=== PATIENT | male | born 1945 | race Two or more races ===

== ENCOUNTER 2020-09-07 11:06 | Outpatient (REF) | payer MEDICARE, SELFPAY ==
--- NOTE | 2020-09-07 11:18 | XR_ITS ---
EXAMINATION: XR KNEE, LEFT CLINICAL INFORMATION: Sprain of the medial collateral ligament of the left knee. COMPARISON: None TECHNIQUE: 2 upright views of the left knee. FINDINGS: No fracture or subluxation. Compartmental joint spaces are maintained. No joint effusion. The soft tissues are unremarkable. IMPRESSION: No acute osseous abnormality. No significant arthritic changes..
== END 2020-09-07 11:07 | disposition home or self-care (01) ==
LOC: HO.XRAY 11:06
PROVIDERS: PCP Internal Medicine
DX: S83.412A Sprain of medial collateral ligament of left knee, initial encounter (principal)
CPT/HCPCS: 73560

== ENCOUNTER 2020-10-03 09:25 | Outpatient (REF) | payer MEDICARE, SELFPAY | END 2020-10-03 09:26 | disposition home or self-care (01) | LOC: HO.LAB 09:25 | PROVIDERS: Visit Provider Internal Medicine | DX: Z20.828 Contact with and (suspected) exposure to other viral communicable diseases (principal) | CPT/HCPCS: C9803; U0003 ==

== ENCOUNTER 2020-10-17 09:29 | Outpatient (REF) | payer MEDICARE, SELFPAY ==
--- NOTE | 2020-10-17 09:32 | XR_ITS ---
EXAMINATION: XR KNEE, LEFT CLINICAL INFORMATION: Left knee pain COMPARISON: Radiographs left knee 09/07/2020 TECHNIQUE: Axial view left patella. FINDINGS: The patella shows no fracture or destructive process in this single view. There is no lateralization or obvious tilting. No joint narrowing or erosive change. There may be some fine chondrocalcinosis at the trochlear notch. XR/XR knee LT 2V IMPRESSION: No lateralization. No joint narrowing or erosive change.
== END 2020-10-17 09:30 | disposition home or self-care (01) ==
LOC: HO.HOSX 09:29
PROVIDERS: PCP Internal Medicine; Visit Provider Physician Assistant
DX: S83.412A Sprain of medial collateral ligament of left knee, initial encounter (principal); W18.30XA Fall on same level, unspecified, initial encounter; Y93.9 Activity, unspecified; Y92.9 Unspecified place or not applicable; Y99.8 Other external cause status; M25.562 Pain in left knee
CPT/HCPCS: 20610; 73560; 99202; J1020

== ENCOUNTER → 2020-10-27 13:27 | Outpatient (BNVA) | payer MEDICARE, SELFPAY | PROVIDERS: PCP Internal Medicine; Referring Provider Internal Medicine; Visit Provider Urology | DX: Z76.89 Persons encountering health services in other specified circumstances (principal) | CPT/HCPCS: 99212 ==

== ENCOUNTER → 2020-11-10 13:20 | Outpatient (BNVA) | payer MEDICARE, MEDICAID, SELFPAY | PROVIDERS: PCP Internal Medicine; Visit Provider Urology | DX: N52.9 Male erectile dysfunction, unspecified (principal) | CPT/HCPCS: 96372; 99212 ==

== ENCOUNTER 2020-11-23 10:44 | Outpatient (REF) | payer MEDICARE, SELFPAY | END 2020-11-23 10:45 | disposition home or self-care (01) | LOC: HO.LAB 10:44 | PROVIDERS: Visit Provider Internal Medicine | DX: Z20.828 Contact with and (suspected) exposure to other viral communicable diseases (principal) | CPT/HCPCS: C9803; U0003 ==

== ENCOUNTER → 2020-12-14 13:39 | Outpatient (BNVA) | payer MEDICARE, SELFPAY | PROVIDERS: PCP Internal Medicine; Visit Provider Urology | DX: E29.1 Testicular hypofunction (principal); N52.01 Erectile dysfunction due to arterial insufficiency | CPT/HCPCS: 96372; 99212 ==

== ENCOUNTER → 2020-12-28 14:35 | Outpatient (BNVA) | payer MEDICARE, SELFPAY | PROVIDERS: Visit Provider Urology | DX: E29.1 Testicular hypofunction (principal); N52.01 Erectile dysfunction due to arterial insufficiency | CPT/HCPCS: 96372; 99212 ==

== ENCOUNTER → 2021-01-04 11:03 | Outpatient (BNVA) | payer MEDICARE, SELFPAY | PROVIDERS: PCP Internal Medicine; Visit Provider Internal Medicine | DX: E66.9 Obesity, unspecified (principal); J44.9 Chronic obstructive pulmonary disease, unspecified; G47.33 Obstructive sleep apnea (adult) (pediatric); Z99.89 Dependence on other enabling machines and devices | CPT/HCPCS: 99212 ==

== ENCOUNTER → 2021-01-11 14:10 | Outpatient (BNVA) | payer MEDICARE, SELFPAY | PROVIDERS: PCP Internal Medicine; Visit Provider Urology | DX: N52.01 Erectile dysfunction due to arterial insufficiency (principal); E29.1 Testicular hypofunction | CPT/HCPCS: 96372; 99212 ==

== ENCOUNTER → 2021-01-24 10:24 | Outpatient (BNVA) | payer MEDICARE, SELFPAY | PROVIDERS: PCP Internal Medicine; Visit Provider Physician Assistant | DX: S83.412D Sprain of medial collateral ligament of left knee, subsequent encounter (principal); S83.249D Other tear of medial meniscus, current injury, unspecified knee, subsequent encounter | CPT/HCPCS: 20610; 99212; J1020 ==

== ENCOUNTER → 2021-02-06 10:47 | Outpatient (BNVA) | payer MEDICARE, MEDICAID, SELFPAY | PROVIDERS: Visit Provider Urology | DX: E29.1 Testicular hypofunction (principal) | CPT/HCPCS: 96372; 99212 ==

== ENCOUNTER → 2021-02-20 11:32 | Outpatient (BNVA) | payer MEDICARE, SELFPAY | PROVIDERS: Visit Provider Urology | DX: E29.1 Testicular hypofunction (principal) | CPT/HCPCS: 96372; Q3014 ==

== ENCOUNTER → 2021-03-20 13:25 | Outpatient (BNVA) | payer MEDICARE, SELFPAY | PROVIDERS: Visit Provider Urology | DX: E29.1 Testicular hypofunction (principal); N52.01 Erectile dysfunction due to arterial insufficiency | CPT/HCPCS: 96372; 99212 ==

== ENCOUNTER 2021-03-30 11:10 | Outpatient (REF) | payer MEDICARE, SELFPAY ==
--- NOTE | ~2021-03-30 | XR_ITS ---
EXAMINATION: XR KNEE, BILATERAL STANDING XR KNEE, LEFT CLINICAL INFORMATION: Pain. COMPARISON: Previous x-rays, most recent August and September 2020 and previous outside knee MRI from 2020. TECHNIQUE: Standing AP view of both knees and lateral and sunrise view of the left knee. FINDINGS: Left Knee: Bone alignment is normal. No fracture or dislocation is seen. There is subchondral cystic change with surrounding sclerosis in the medial femoral condyle that is new from previous exam. The joint spaces are normal. There is a joint effusion. Standing AP view of the right knee is unremarkable. XR/XR knee standing BI IMPRESSION: New subchondral cystic change and surrounding sclerosis in the medial femoral condyle. Differential would include old osteochondral injury and spontaneous osteonecrosis. Joint effusion.
--- NOTE | ~2021-03-30 | XR_ITS ---
EXAMINATION: XR KNEE, BILATERAL STANDING XR KNEE, LEFT CLINICAL INFORMATION: Pain. COMPARISON: Previous x-rays, most recent August and September 2020 and previous outside knee MRI from 2020. TECHNIQUE: Standing AP view of both knees and lateral and sunrise view of the left knee. FINDINGS: Left Knee: Bone alignment is normal. No fracture or dislocation is seen. There is subchondral cystic change with surrounding sclerosis in the medial femoral condyle that is new from previous exam. The joint spaces are normal. There is a joint effusion. Standing AP view of the right knee is unremarkable. XR/XR knee LT 2V IMPRESSION: New subchondral cystic change and surrounding sclerosis in the medial femoral condyle. Differential would include old osteochondral injury and spontaneous osteonecrosis. Joint effusion.
== END 2021-03-30 11:11 | disposition home or self-care (01) ==
LOC: HO.HOSX 11:10
PROVIDERS: Visit Provider Physician Assistant
DX: M17.12 Unilateral primary osteoarthritis, left knee (principal); M25.561 Pain in right knee
CPT/HCPCS: 73560; 73565; 99212

== ENCOUNTER → 2021-04-09 13:03 | Outpatient (BNVA) | payer MEDICARE, SELFPAY | PROVIDERS: Visit Provider Orthopaedic Surgery | DX: Z01.818 Encounter for other preprocedural examination (principal); S83.249A Other tear of medial meniscus, current injury, unspecified knee, initial encounter; M84.452A Pathological fracture, left femur, initial encounter for fracture | CPT/HCPCS: 99212 ==

== ENCOUNTER → 2021-04-17 12:58 | Outpatient (BNVA) | payer MEDICARE, SELFPAY | PROVIDERS: PCP Internal Medicine; Visit Provider Urology | DX: E29.1 Testicular hypofunction (principal) | CPT/HCPCS: 96372 ==

== ENCOUNTER 2021-04-18 08:31 | Day surgery (SDC) | payer MEDICARE, SELFPAY ==
--- NOTE | 2021-04-16 13:37 | P.CONAN_ITS ---
Documented by User: Lin Vargheseney 04/16/21 13:38 HPI - Anesthesia Eval Consult details Narrative: 75yo M for Left Knee Arthroscopy PMFSH Active Problems Active Problems: All Active Problems (Updated 04/02/21 @ 10:14 by Bryan Beavers PA-C) Osteoarthritis of left knee (Acute) COPD (chronic obstructive pulmonary disease) (Acute) ALLY on CPAP (Acute) Obesity (BMI 30-39.9) (Acute) Hypogonadism in male (Acute) Erectile dysfunction due to arterial insufficiency (Acute) Contusion (Acute) Medial meniscus tear (Acute) MCL sprain of left knee (Acute) Past Medical History Medical History Arrhythmia Arthritis Asthma Back pain Carpal tunnel syndrome COPD (chronic obstructive pulmonary disease) COPD (chronic obstructive pulmonary disease) DMII (diabetes mellitus, type 2) GERD (gastroesophageal reflux disease) HTN (hypertension) Lumbar disc herniation Obesity (BMI 30-39.9) ALLY on CPAP RLS (restless legs syndrome) Syncope Family History Family History Father Stroke Surgical History Surgical History History of cervical spinal surgery History of cholecystectomy History of lumbosacral spine surgery Social History Social History Use of substances other than those prescribed or required for medical reasons: No Have you been hit, kicked, punched, or otherwise hurt by someone within the past year? If so, by whom?: No Are you DNR?: No Advance Directives: No Advance Directives Information Provided: Yes Current occupational status: retired Meds Allergies Allergy/AdvReac Type Severity Reaction Status Date / Time hydrochlorothiazide Allergy Unknown unknown Verified 04/09/21 14:05 lisinopril Allergy Unknown unknown Verified 04/09/21 14:05 olmesartan Allergy Unknown unknown Verified 04/09/21 14:05 venom-honey bee Allergy Unknown unknown Verified 04/09/21 14:05 beans Allergy Unknown unknown Uncoded 04/09/21 14:05 Home Medications Medication Instructions Recorded Confirmed Last Taken Type albuterol sulfate 90 mcg/actuation INHALATION 08/26/20 Unknown History aerosol inhaler amlodipine 10 mg tablet 10 mg PO QAM 08/26/20 Unknown History aspirin 81 mg tablet,delayed 81 mg PO QAM 08/26/20 Unknown History release cholecalciferol (vitamin D3) 50 50 mcg PO QAM 08/26/20 Unknown History mcg (2,000 unit) tablet fluticasone propionate 50 INTRANASAL 08/26/20 Unknown History mcg/actuation nasal spray,suspension glipizide 2.5 mg tablet, extended 2.5 mg PO DAILY 08/26/20 Unknown History release 24 hr ipratropium 0.5 mg-albuterol 3 mg ml INHALATION Q6H PRN 08/26/20 Unknown History (2.5 mg base)/3 mL nebulization soln ipratropium 20 mcg-albuterol 100 1 - 2 puff PO Q6H PRN 08/26/20 Unknown History mcg/actuation mist for inhalation ketotifen fumarate 0.025 % (0.035 1 drp OPHTHALMIC (EYE) BID 08/26/20 Unknown History %) eye drops levocetirizine 5 mg tablet 5 mg PO BEDTIME 08/26/20 Unknown History losartan 50 mg tablet 50 mg PO DAILY 08/26/20 Unknown History meloxicam 15 mg tablet 15 mg PO DAILY 08/26/20 Unknown History metformin 1,000 mg tablet 1,000 mg PO BID 08/26/20 Unknown History montelukast 10 mg tablet 10 mg PO DAILY 08/26/20 Unknown History omeprazole 20 mg capsule,delayed 20 mg PO QAM 08/26/20 Unknown History release oxycodone-acetaminophen 5 mg-325 1 tab PO Q12H PRN 08/26/20 Unknown History mg tablet prednisone 5 mg tablet 10 mg PO BID 08/26/20 Unknown History ropinirole 4 mg tablet 4 mg PO BEDTIME 08/26/20 Unknown History sildenafil 100 mg tablet 100 mg PO DAILY PRN 08/26/20 Unknown History simvastatin 10 mg tablet 10 mg PO BEDTIME 08/26/20 Unknown History testosterone cypionate 200 mg/mL 200 mg IM Q2W 08/26/20 Unknown History intramuscular oil acetaminophen 500 mg tablet 500 mg PO Q6H PRN 10/17/20 Unknown History ipratropium 20 mcg-albuterol 100 1 puff INHALATION Q6H 10/17/20 Unknown History mcg/actuation mist for inhalation ipratropium bromide 0.02 % 2.5 ml INHALATION Q6H PRN 10/17/20 Unknown History solution for inhalation salmeterol 21 mcg/actuation mcg INHALATION 10/17/20 Unknown History aerosol inhaler testosterone cypionate 50 mg/mL 50 mg IM Q4W 10/17/20 Unknown History intramuscular oil Exam Exam Date and Time: April 16, 2021 4277 Assessment and Plan Assessment Anesthesia Assessment: Chart Reviewed Documented by User: Kia Weaver 04/18/21 10:04 [facility] Past Medical History Medical History Arrhythmia Arthritis Asthma Back pain Carpal tunnel syndrome COPD (chronic obstructive pulmonary disease) COPD (chronic obstructive pulmonary disease) DMII (diabetes mellitus, type 2) GERD (gastroesophageal reflux disease) HTN (hypertension) Lumbar disc herniation Obesity (BMI 30-39.9) ALLY on CPAP RLS (restless legs syndrome) Syncope Family History Family History Father Stroke Family history of problems with anesthesia: No Surgical History Surgical History History of cervical spinal surgery History of cholecystectomy History of lumbosacral spine surgery History of Problems with Anesthesia: No Social History Social History Use of substances other than those prescribed or required for medical reasons: No Have you been hit, kicked, punched, or otherwise hurt by someone within the past year? If so, by whom?: No Are you DNR?: No Advance Directives: No Advance Directives Information Provided: Yes Current occupational status: retired Meds Allergies Allergy/AdvReac Type Severity Reaction Status Date / Time hydrochlorothiazide Allergy Unknown unknown Verified 04/09/21 14:05 lisinopril Allergy Unknown unknown Verified 04/09/21 14:05 olmesartan Allergy Unknown unknown Verified 04/09/21 14:05 venom-honey bee Allergy Unknown unknown Verified 04/09/21 14:05 beans Allergy Unknown unknown Uncoded 04/09/21 14:05 Home Medications Medication Instructions Recorded Confirmed Last Taken Type albuterol sulfate 90 mcg/actuation INHALATION 08/26/20 Unknown History aerosol inhaler amlodipine 10 mg tablet 10 mg PO QAM 08/26/20 Unknown History aspirin 81 mg tablet,delayed 81 mg PO QAM 08/26/20 Unknown History release cholecalciferol (vitamin D3) 50 50 mcg PO QAM 08/26/20 Unknown History mcg (2,000 unit) tablet fluticasone propionate 50 INTRANASAL 08/26/20 Unknown History mcg/actuation nasal spray,suspension glipizide 2.5 mg tablet, extended 2.5 mg PO DAILY 08/26/20 Unknown History release 24 hr ipratropium 0.5 mg-albuterol 3 mg ml INHALATION Q6H PRN 08/26/20 Unknown History (2.5 mg base)/3 mL nebulization soln ipratropium 20 mcg-albuterol 100 1 - 2 puff PO Q6H PRN 08/26/20 Unknown History mcg/actuation mist for inhalation ketotifen fumarate 0.025 % (0.035 1 drp OPHTHALMIC (EYE) BID 08/26/20 Unknown History %) eye drops levocetirizine 5 mg tablet 5 mg PO BEDTIME 08/26/20 Unknown History losartan 50 mg tablet 50 mg PO DAILY 08/26/20 Unknown History meloxicam 15 mg tablet 15 mg PO DAILY 08/26/20 Unknown History metformin 1,000 mg tablet 1,000 mg PO BID 08/26/20 Unknown History montelukast 10 mg tablet 10 mg PO DAILY 08/26/20 Unknown History omeprazole 20 mg capsule,delayed 20 mg PO QAM 08/26/20 Unknown History release oxycodone-acetaminophen 5 mg-325 1 tab PO Q12H PRN 08/26/20 Unknown History mg tablet prednisone 5 mg tablet 10 mg PO BID 08/26/20 Unknown History ropinirole 4 mg tablet 4 mg PO BEDTIME 08/26/20 Unknown History sildenafil 100 mg tablet 100 mg PO DAILY PRN 08/26/20 Unknown History simvastatin 10 mg tablet 10 mg PO BEDTIME 08/26/20 Unknown History testosterone cypionate 200 mg/mL 200 mg IM Q2W 08/26/20 Unknown History intramuscular oil acetaminophen 500 mg tablet 500 mg PO Q6H PRN 10/17/20 Unknown History ipratropium 20 mcg-albuterol 100 1 puff INHALATION Q6H 10/17/20 Unknown History mcg/actuation mist for inhalation ipratropium bromide 0.02 % 2.5 ml INHALATION Q6H PRN 10/17/20 Unknown History solution for inhalation salmeterol 21 mcg/actuation mcg INHALATION 10/17/20 Unknown History aerosol inhaler testosterone cypionate 50 mg/mL 50 mg IM Q4W 10/17/20 Unknown History intramuscular oil Exam Height,Weight and Vital Signs: Vital Signs Temp Pulse Resp BP Pulse Ox 04/18/21 08:47 97.8 F 63 18 130/69 95 Pertinent Lab Results Pertinent Lab Results: Lab Results 04/18/21 Range/Units 08:43 POC Glucose 116 H (60-115) mg/dL Airway Mallampati Class: II TM Dist: >3cm Neck ROM: Full Heart: RRR Lungs: CTAB Assessment and Plan Assessment Anesthesia Assessment: Anesthesia Plan Discussed and Chart Reviewed Final Anesthetic Review NPO: Yes ASA Class: III Final Preanesthetic Review: No Changes in Pt Med Stat, Meds/Allgs Chart Reviewed, Consent Obtained/Reviewed and Anes Risks/Benef Reviewed Patient Risk: Intermediate Procedure Risk: Low Assessment/Block/Sedation in SS: Assess/Block/Sedation-SS Anesthetic Plan Anesthetic Plan: GA Disposition: Standard PACU
[2021-04-18] VITALS (8 sets, daily range): BP systolic 97–130; BP diastolic 50–69; PULSE 61–71; RESP 12–19; TEMP 36.6; O2SAT 90–99; BMI 32.4
--- NOTE | ~2021-04-18 | FL_ITS ---
EXAMINATION: XR FLUOROSCOPY WITH IMAGES CLINICAL INFORMATION: Internal fixation left knee COMPARISON: Previous x-ray 03/30/2021 TECHNIQUE: Fluoroscopy performed by Dr. Denver Ward. Fluoroscopy time: 0.3 minutes DAP: 0.4 Gycm2 Images: 2 FINDINGS: AP and lateral view of the left knee demonstrates subchondral lucency in the medial femoral condyle. No orthopedic hardware seen. FL/FL guidance in OR IMPRESSION: Intraoperative fluoroscopy guidance for left knee procedure.
[2021-04-18 08:48] LABS: Glucose, Whole Blood 116 mg/dL (60-115)
[2021-04-18] MEDS: Lactated Ringers 1,000 ML 100 ML IVCONT (09:19)
--- NOTE | 2021-04-18 10:17 | MHC.SHP ---
Pre-Procedural Eval Section A The patient is an INPATIENT: No Changes since office visit: Yes Patient answered all questions; No Cold of Flu in the past 2 weeks, No New Medical Problems and No Changes in Medication The History & Physical has been completed within 30 days and I have reviewed it.: Yes Section B Chief Complaint: condyle of left femur Allergies: Allergies Allergy/AdvReac Type Severity Reaction Status Date / Time hydrochlorothiazide Allergy Unknown unknown Verified 04/09/21 14:05 lisinopril Allergy Unknown unknown Verified 04/09/21 14:05 olmesartan Allergy Unknown unknown Verified 04/09/21 14:05 venom-honey bee Allergy Unknown unknown Verified 04/09/21 14:05 beans Allergy Unknown unknown Uncoded 04/09/21 14:05 Plan I have reviewed the history and physical and performed a pertinent physical examination on my patient. No changes have occurred unless specified.
--- NOTE | 2021-04-18 11:38 | PM.OP ---
Brief Operative Note Date of Service: 04/18/21 Pre-op diagnosis: insufficiency fracture right medial femoral condyle medial meniscus tear Post-op diagnosis: same Procedure: internal fixation right medial femoral condyle insufficiency fracture Implants: 4ml Angela Acufill calcium phosphate Surgeon: Denver Ward MD Anesthesia: GETA Was an [employer] Out[employer] Manager used for this Procedure?: Yes Food And Beverage Outlets Manager: Shasha Jane Estimated blood loss (mL): 5 Tourniquet time (min): 25 IV fluids (mL): 500 Pathology: none sent Condition: stable Disposition: PACU
--- NOTE | 2021-04-18 11:51 | P.OP_ITS ---
Operative Note Operative Note Date of Service: 04/18/21 Narrative: Pre-op diagnosis: insufficiency fracture right medial femoral condyle medial meniscus tear Post-op diagnosis: same Procedure: internal fixation right medial femoral condyle insufficiency fracture Implants: 4ml Angela Acufill calcium phosphate Surgeon: Denver Ward MD Anesthesia: GETA Was an [employer] Consultant used for this Procedure?: Yes [employer] Consultant: Shasha Jane Estimated blood loss (mL): 5 Tourniquet time (min): 25 IV fluids (mL): 500 Pathology: none sent Condition: stable Procedure in detail: Patient was brought to the operating room and placed supine on the surgical table. He was prepped and draped in standard sterile fashion and a time out was called to indentify proper site, proper procedure and IV antibiotics per weight were administered. I began by insufflating the tourniquet to 300 mm Hg. I then made a standard anterolateral stab incision with 15 blade placed my blunt trocar atraumatically into the patellofemoral joint. I then insufflated the joint placed my 30 degree arthroscope. Suprapatellar pouch was clean. He had some grade 1 changes of the patella and trochlea. I descended into the medial compartment where I made my medial portal under direct visualization. Again the risk grade 1 and 2 changes of the tibial plateau. ACL was intact lateral compartment was pristine. I examined the posteromedial meniscus and found a posteromedial meniscus tear which it was radial involving the meniscal body. This was debrided down to stable edges using a combination of biter and shaver. Once the meniscus was stabilized I examined the medial femoral condyle. There was no obvious cartilage damage over the weight-bearing surface. I then removed my arthroscope and began the internal fixation procedure. Under radiographic visualization I established to start site over the anteromedial plateau just medial to the articular cartilage. The delivery cannula was placed just proximal to the femoral condyle lesion and inserted posteriorly under direct visualization. Once I was satisfied with the position of the guidewire relative to the lesion as appreciated on MRI I mixed the Accufill calcium phosphate on the back table and slowly injected a total of 4 mL. After each mL I gradually retracted the cannula and under direct visualization was able to see the extravasation of the calcium phosphate cement in the area of interest on both AP and lateral radiographs. Once I was satisfied with the location and extent of fill and felt some resistance with injection I placed the guidewire back into the cannula and started a timer. I then used the arthroscope to visualize the insertion site and. There was a small amount of extravasated calcium phosphate around the cannula. This was removed with a shaver. Once 10 minutes time was up I removed the cannula and examined the knee again for any loose pieces of sodium phosphate. There were none. I then removed all instrumentation. Portals were closed with nylon. 30 mL of 0.25% Marcaine was injected in the portals and into the knee. I then the patient was then placed in sterile dressing extubated brought to recovery room in stable condition there were no known complications.
== END 2021-04-18 13:20 ==
LOC: HO.SSS 08:31
PROVIDERS: PCP Internal Medicine; Visit Provider Orthopaedic Surgery
PROC: (CPT 29870; principal; 2021-04-18 10:40)
DX: S72.435A Nondisplaced fracture of medial condyle of left femur, initial encounter for closed fracture (principal); M23.231 Derangement of other medial meniscus due to old tear or injury, right knee; X58.XXXA Exposure to other specified factors, initial encounter; Y93.9 Activity, unspecified; Y92.9 Unspecified place or not applicable; Y99.8 Other external cause status; J44.9 Chronic obstructive pulmonary disease, unspecified; G47.33 Obstructive sleep apnea (adult) (pediatric); G25.81 Restless legs syndrome; I10 Essential (primary) hypertension; E11.9 Type 2 diabetes mellitus without complications; Z79.51 Long term (current) use of inhaled steroids; Z99.89 Dependence on other enabling machines and devices; Z79.899 Other long term (current) drug therapy; Z88.8 Allergy status to other drugs, medicaments and biological substances
CPT/HCPCS: 27599; 82947; C1713; J0171; J0690; J2250; J2405; J3010

== ENCOUNTER 2021-04-30 11:33 | Outpatient (REF) | payer MEDICARE, SELFPAY ==
[2021-04-30 13:37] LABS: MANUAL DIFF FLAG NO
[2021-04-30 13:45] LABS: Basophils Absolute Auto 0.1 X10*3/uL (0.0-0.2); Basophils Percent Auto 1.1 % (0-2); Eosinophils Absolute Auto 0.2 X10*3/uL (0.0-0.4); Eosinophils Percent Auto 3.2 % (0-4); Hematocrit 41.9 % (42-52); Hemoglobin 13.4 g/dl (14.0-18.0); Imm Gran Abs Auto 0.02 X10*3/uL (0.00-0.03); Imm Gran Pct Auto 0.3 % (0.0-0.4); Lymphocytes Absolute Auto 1.8 X10*3/uL (1.2-4.9); Lymphocytes Percent Auto 28.2 % (20-40); Mean Corpuscular Hemoglobin 30.5 pg (27.0-33.0); Mean Corpuscular Volume 95.2 fL (80-98); Monocytes Absolute Auto 0.6 X10*3/uL (0.1-1.2); Monocytes Percent Auto 9.3 % (2-11); Neutrophils Absolute Auto 3.6 X10*3/uL (2.0-8.3); Neutrophils Percent Auto 57.9 % (45-73); Platelet Count 323 X10*3/uL (160-400); White Blood Count 6.3 X10*3/uL (4.8-10.8)
[2021-04-30 14:18] LABS: PSA,Total (Free>4and<10) 4.13 ng/mL (0.00-4.00)
[2021-05-01 10:16] LABS: Free Prostate Spec Ag 0.4 ng/mL; Percent Free Prostate Spec Ag 11 % (calc) (>25); Prostate Specific Ag Total 3.8 ng/mL (< OR = 4.0)
[2021-05-06 12:11] LABS: Testosterone, Free 41.9 pg/mL (30.0-135.0); Testosterone, Total 327 ng/dL (250-1100)
== END 2021-04-30 11:34 | disposition home or self-care (01) ==
LOC: HO.10HDL 11:33
PROVIDERS: Urology; PCP Internal Medicine; Visit Provider Physician Assistant
DX: Z12.5 Encounter for screening for malignant neoplasm of prostate (principal); M84.453A Pathological fracture, unspecified femur, initial encounter for fracture; E29.1 Testicular hypofunction; Z98.890 Other specified postprocedural states
CPT/HCPCS: 36415; 84153; 84154; 84402; 84403; 85025; 99212

== ENCOUNTER → 2021-05-15 15:41 | Outpatient (BNVA) | payer MEDICARE, SELFPAY | PROVIDERS: PCP Internal Medicine; Visit Provider Urology | DX: E29.1 Testicular hypofunction (principal) | CPT/HCPCS: 96372; 99212 ==

== ENCOUNTER → 2021-05-31 13:24 | Outpatient (BNVA) | payer MEDICARE, SELFPAY | PROVIDERS: PCP Internal Medicine; Visit Provider Urology | DX: E29.1 Testicular hypofunction (principal) | CPT/HCPCS: 96372 ==

== ENCOUNTER → 2021-06-07 14:32 | Outpatient (BNVA) | payer MEDICARE, SELFPAY | PROVIDERS: PCP Internal Medicine; Visit Provider Orthopaedic Surgery | DX: M84.453D Pathological fracture, unspecified femur, subsequent encounter for fracture with routine healing (principal); M17.12 Unilateral primary osteoarthritis, left knee; Z98.890 Other specified postprocedural states | CPT/HCPCS: 99212 ==

== ENCOUNTER → 2021-06-14 09:59 | Outpatient (BNVA) | payer MEDICARE, SELFPAY | PROVIDERS: PCP Internal Medicine; Visit Provider Urology | DX: E29.1 Testicular hypofunction (principal) | CPT/HCPCS: 96372 ==

== ENCOUNTER 2021-06-19 15:00 | Outpatient (RCR) | payer MEDICARE, SELFPAY ==
[2021-05-03 11:01] VITALS: BP 140/70
--- NOTE | 2021-05-03 12:33 | MHC.PT.EP ---
[facility] [place] Office [place] Office [place] Office [address] Madeleine Miles [address] [phone] F: [phone] F: [phone] F: [phone] F: [phone] Physical Therapy Plan of Care Date of Evaluation: Date of Surgery: 04/18/21 Diagnosis: Pathological fracture, unspecified femur, initial encounter for fracture s/p subchondroplasty Assessment: Jose Ramon is a 75 year old male who was referred to physical therapy s/p L knee unspecified fracture and subchondroplasty. He is 2 weeks post op. He presents with 7/10 pain around knee, decreased B hip strength, decreased L knee strength, decreased L knee ROM, increased L knee swelling, posture abnormalities, and gait deviations. He would benefit from skilled PT for the aformentioned impairments to improve his ability for ADLs such as walking, driving, cooking, and dressing him self. Frequency and Duration: The patient will be seen 2x week for 6 weeks Short Term Goals: 1. In 2 weeks patient will present with decreased swelling to decrease pain with walking and stairs. 2. In 3 weeks: Patient will demonstrate improved L Knee flexion to help with dressing himself and driving his car. Mcfp Goals: 1. In 5 weeks patient will present with improved knee ROM to improve ability to walk long distances 2. In 6 weeks patient will improve hip MMT by one grade to improve ability to walk long distances, cook, and clean. Treatment Plan: Modalities to reduce pain, spasms and effusion. Manual therapy to restore motion and function. Therapeutic exercise to improve strength and flexibility. Neuromuscular re-education for posture and balance. Therapeutic activities to return to functional activities of daily living. Electronically signed by: Tabitha Horton PT DPT Please sign and return to therapist. Thank you for your referral.
--- NOTE | 2021-06-22 14:32 | MHC.PT.DC ---
[facility] [place] Office [place] Office [place] Office [address] Madeleine Miles [address] [phone] F: [phone] F: [phone] F: [phone] F: [phone] Physical Therapy Discharge Report Diagnosis: Pathological fracture, unspecified femur, initial encounter for fracture s/p subchondroplasty Date of Surgery: 04/18/21 Date of Evaluation: 05/03/21 Date of Discharge: 06/22/21 Treatments to Date: 9 Cancellations to Date: 0 No Shows to Date: 0 Discharge Status: Achieved Goals Improved Function Independent with HEP Discharge Summary: Jose Ramon has achieved all goals set for him and is independent with HEPs. He has therefore been d/c from therapy. Electronically signed by: Tabitha Horton PT DPT Please sign and return to therapist. Thank you for your referral.
== END 2021-06-22 14:33 | disposition home or self-care (01) ==
LOC: HO.PT 15:00
PROVIDERS: Visit Provider Physician Assistant
DX: M84.453A Pathological fracture, unspecified femur, initial encounter for fracture (principal); Z98.890 Other specified postprocedural states
CPT/HCPCS: 97110; 97112; 97161; 97530

== ENCOUNTER → 2021-07-03 12:52 | Outpatient (BNVA) | payer MEDICARE, SELFPAY | PROVIDERS: PCP Internal Medicine; Visit Provider Urology | DX: E29.1 Testicular hypofunction (principal) | CPT/HCPCS: 96372 ==

== ENCOUNTER → 2021-07-05 14:38 | Outpatient (BNVA) | payer MEDICARE, SELFPAY | PROVIDERS: PCP Internal Medicine; Visit Provider Internal Medicine | DX: J44.9 Chronic obstructive pulmonary disease, unspecified (principal); G47.33 Obstructive sleep apnea (adult) (pediatric); G25.81 Restless legs syndrome; E66.9 Obesity, unspecified; Z99.89 Dependence on other enabling machines and devices | CPT/HCPCS: 99212 ==

== ENCOUNTER → 2021-07-18 13:02 | Outpatient (BNVA) | payer MEDICARE, SELFPAY | PROVIDERS: PCP Internal Medicine; Visit Provider Urology | DX: E29.1 Testicular hypofunction (principal) | CPT/HCPCS: 96372 ==

== ENCOUNTER → 2021-07-19 13:29 | Outpatient (BNVA) | payer MEDICARE, SELFPAY | PROVIDERS: PCP Internal Medicine; Visit Provider Orthopaedic Surgery | DX: M17.12 Unilateral primary osteoarthritis, left knee (principal); E66.01 Morbid (severe) obesity due to excess calories; G47.33 Obstructive sleep apnea (adult) (pediatric); Z68.30 Body mass index [BMI] 30.0-30.9, adult; Z98.890 Other specified postprocedural states; Z88.8 Allergy status to other drugs, medicaments and biological substances; Z91.030 Bee allergy status; Z99.89 Dependence on other enabling machines and devices | CPT/HCPCS: 20610; 99212; J1100 ==

== ENCOUNTER → 2021-08-01 12:45 | Outpatient (BNVA) | payer MEDICARE, SELFPAY | PROVIDERS: PCP Internal Medicine; Visit Provider Urology | DX: E29.1 Testicular hypofunction (principal) | CPT/HCPCS: 96372 ==

== ENCOUNTER → 2021-08-15 13:04 | Outpatient (BNVA) | payer MEDICARE, SELFPAY | PROVIDERS: PCP Internal Medicine; Visit Provider Urology | DX: E29.1 Testicular hypofunction (principal) | CPT/HCPCS: 96372 ==

== ENCOUNTER 2021-08-23 12:16 | Outpatient (REF) | payer MEDICARE, SELFPAY | END 2021-08-23 12:17 | disposition home or self-care (01) | LOC: HO.HOSX 12:16 | PROVIDERS: Visit Provider Orthopaedic Surgery | DX: Z13.89 Encounter for screening for other disorder (principal) ==

== ENCOUNTER → 2021-08-29 13:01 | Outpatient (BNVA) | payer MEDICARE, SELFPAY | PROVIDERS: PCP Internal Medicine; Visit Provider Urology | DX: E29.1 Testicular hypofunction (principal) | CPT/HCPCS: 96372 ==

== ENCOUNTER → 2021-09-12 13:08 | Outpatient (BNVA) | payer MEDICARE, SELFPAY | PROVIDERS: PCP Internal Medicine; Visit Provider Urology | DX: E29.1 Testicular hypofunction (principal) | CPT/HCPCS: 96372 ==

== ENCOUNTER → 2021-09-26 13:15 | Outpatient (BNVA) | payer MEDICARE, SELFPAY | PROVIDERS: PCP Internal Medicine; Visit Provider Urology | DX: E29.1 Testicular hypofunction (principal) | CPT/HCPCS: 96372 ==

== ENCOUNTER → 2021-10-10 14:22 | Outpatient (BNVA) | payer MEDICARE, SELFPAY | PROVIDERS: PCP Internal Medicine; Visit Provider Urology | DX: E29.1 Testicular hypofunction (principal) | CPT/HCPCS: 96372 ==

== ENCOUNTER → 2021-10-15 08:30 | Outpatient (BNVA) | payer MEDICARE, SELFPAY | PROVIDERS: PCP Internal Medicine; Visit Provider Orthopaedic Surgery | DX: M84.453D Pathological fracture, unspecified femur, subsequent encounter for fracture with routine healing (principal); S83.249D Other tear of medial meniscus, current injury, unspecified knee, subsequent encounter; M17.12 Unilateral primary osteoarthritis, left knee; Z98.890 Other specified postprocedural states | CPT/HCPCS: 20610; 99212; J1100 ==

== ENCOUNTER 2021-10-23 12:31 | Outpatient (REF) | payer MEDICARE, SELFPAY | END 2021-10-23 12:32 | disposition home or self-care (01) | LOC: HO.LAB 12:31 | PROVIDERS: PCP Internal Medicine; Visit Provider Internal Medicine | DX: Z20.822 Contact with and (suspected) exposure to COVID-19 (principal) | CPT/HCPCS: C9803; U0003; U0005 ==

== ENCOUNTER → 2021-10-24 12:57 | Outpatient (BNVA) | payer MEDICARE, SELFPAY | PROVIDERS: PCP Internal Medicine; Visit Provider Urology | DX: E29.1 Testicular hypofunction (principal) | CPT/HCPCS: 96372 ==

== ENCOUNTER 2021-11-01 13:57 | Outpatient (REF) | payer MEDICARE, SELFPAY | END 2021-11-01 13:58 | disposition home or self-care (01) | LOC: HO.LAB 13:57 | PROVIDERS: Visit Provider Internal Medicine | DX: Z20.822 Contact with and (suspected) exposure to COVID-19 (principal) | CPT/HCPCS: C9803; U0003; U0005 ==

== ENCOUNTER 2021-11-07 11:50 | Outpatient (REF) | payer MEDICARE, MEDICAID, SELFPAY ==
[2021-11-07 13:54] LABS: Hematocrit 47.6 % (42.0-52.0); Hemoglobin 15.5 g/dl (14.0-18.0); Mean Corpuscular HGB Conc 32.6 g/dl (31.0-36.0); Mean Corpuscular Volume 92.1 fL (80.0-98.0); Mean Platelet Volume 10.3 fL (9.4-12.4); Platelet Count 244 X10*3/uL (160-400); Red Blood Count 5.17 X10*6/uL (4.60-5.80); Red Cell Distribution Width 13.1 % (11.0-16.0); White Blood Count 5.7 X10*3/uL (4.8-10.8)
[2021-11-07 15:29] LABS: Prostate Specific Antigen 4.93 ng/mL (<0.05-4.0)
[2021-11-14 16:16] LABS: Testosterone, Total 408 ng/dL (250-1100)
== END 2021-11-07 11:51 | disposition home or self-care (01) ==
LOC: HO.10HDL 11:50
PROVIDERS: Visit Provider Urology
DX: Z12.5 Encounter for screening for malignant neoplasm of prostate (principal); E29.1 Testicular hypofunction; Z79.899 Other long term (current) drug therapy
CPT/HCPCS: 36415; 84153; 84403; 85027; 96372

== ENCOUNTER → 2021-11-14 12:42 | Outpatient (BNVA) | payer MEDICARE, SELFPAY | PROVIDERS: PCP Internal Medicine; Visit Provider Urology | DX: E29.1 Testicular hypofunction (principal) | CPT/HCPCS: Q3014 ==

== ENCOUNTER → 2021-11-22 11:12 | Outpatient (BNVA) | payer MEDICARE, SELFPAY | PROVIDERS: PCP Internal Medicine; Visit Provider Urology | DX: E29.1 Testicular hypofunction (principal) | CPT/HCPCS: 96372 ==

== ENCOUNTER → 2021-12-06 12:57 | Outpatient (BNVA) | payer MEDICARE, SELFPAY | PROVIDERS: PCP Internal Medicine; Visit Provider Urology | DX: E29.1 Testicular hypofunction (principal) | CPT/HCPCS: 96372 ==

== ENCOUNTER → 2021-12-20 12:50 | Outpatient (BNVA) | payer MEDICARE, SELFPAY | PROVIDERS: PCP Internal Medicine; Visit Provider Urology | DX: E29.1 Testicular hypofunction (principal) | CPT/HCPCS: 96372 ==

== ENCOUNTER → 2022-01-03 09:48 | Outpatient (BNVA) | payer MEDICARE, SELFPAY | PROVIDERS: PCP Internal Medicine; Visit Provider Urology | DX: E29.1 Testicular hypofunction (principal) | CPT/HCPCS: 96372 ==

== ENCOUNTER → 2022-01-09 14:03 | Outpatient (BNVA) | payer MEDICARE, SELFPAY | PROVIDERS: PCP Internal Medicine; Visit Provider Internal Medicine | DX: J44.9 Chronic obstructive pulmonary disease, unspecified (principal); G47.33 Obstructive sleep apnea (adult) (pediatric); G25.81 Restless legs syndrome; E66.9 Obesity, unspecified; Z99.89 Dependence on other enabling machines and devices; Z68.31 Body mass index [BMI] 31.0-31.9, adult | CPT/HCPCS: 99212 ==

== ENCOUNTER → 2022-01-21 11:23 | Outpatient (BNVA) | payer MEDICARE, SELFPAY | PROVIDERS: PCP Internal Medicine; Visit Provider Orthopaedic Surgery | DX: M17.12 Unilateral primary osteoarthritis, left knee (principal); E11.9 Type 2 diabetes mellitus without complications; E29.1 Testicular hypofunction | CPT/HCPCS: 20610; 96372; 99212; J1100 ==

== ENCOUNTER → 2022-01-29 10:47 | Outpatient (BNVA) | payer MEDICARE, SELFPAY | PROVIDERS: PCP Internal Medicine; Visit Provider Urology | DX: E29.1 Testicular hypofunction (principal) | CPT/HCPCS: 96372 ==

== ENCOUNTER → 2022-02-12 12:58 | Outpatient (BNVA) | payer MEDICARE, SELFPAY | PROVIDERS: PCP Internal Medicine; Visit Provider Urology | DX: E29.1 Testicular hypofunction (principal) | CPT/HCPCS: 96372 ==

== ENCOUNTER → 2022-02-26 13:11 | Outpatient (BNVA) | payer MEDICARE, SELFPAY | PROVIDERS: PCP Internal Medicine; Visit Provider Urology | DX: E29.1 Testicular hypofunction (principal) | CPT/HCPCS: 96372 ==

== ENCOUNTER → 2022-03-15 15:07 | Outpatient (BNVA) | payer MEDICARE, SELFPAY | PROVIDERS: PCP Internal Medicine; Visit Provider Urology | DX: E29.1 Testicular hypofunction (principal) | CPT/HCPCS: 96372 ==

== ENCOUNTER 2022-03-21 08:55 | Outpatient (REF) | payer MEDICARE, MEDICAID, SELFPAY ==
--- NOTE | ~2022-03-21 | XR_ITS ---
EXAMINATION: XR SHOULDER, RIGHT CLINICAL INFORMATION: Shoulder pain. COMPARISON: None TECHNIQUE: 3 views of the right shoulder. FINDINGS: There is loss of the right AC joint space. The glenohumeral joint space is maintained normal. No visible acute fracture, dislocation or subluxation is seen. The soft tissues are normal. XR/XR shoulder RT min 2V IMPRESSION: Mild degenerative changes of the right AC joint. No visible acute fracture or dislocation.
== END 2022-03-21 08:56 | disposition home or self-care (01) ==
LOC: HO.HOSX 08:55
PROVIDERS: Visit Provider Physician Assistant
DX: M77.8 Other enthesopathies, not elsewhere classified (principal); M25.511 Pain in right shoulder; E11.9 Type 2 diabetes mellitus without complications; J44.9 Chronic obstructive pulmonary disease, unspecified; I10 Essential (primary) hypertension; E66.9 Obesity, unspecified; Z87.891 Personal history of nicotine dependence; Z88.8 Allergy status to other drugs, medicaments and biological substances; Z91.030 Bee allergy status
CPT/HCPCS: 20610; 73030; 99212; J1020

== ENCOUNTER → 2022-04-02 13:56 | Outpatient (BNVA) | payer MEDICARE, SELFPAY | PROVIDERS: PCP Internal Medicine; Visit Provider Urology | DX: E29.1 Testicular hypofunction (principal) | CPT/HCPCS: 96372 ==

== ENCOUNTER → 2022-04-16 13:04 | Outpatient (BNVA) | payer MEDICARE, SELFPAY | PROVIDERS: PCP Internal Medicine; Visit Provider Urology | DX: E29.1 Testicular hypofunction (principal) | CPT/HCPCS: 96372 ==

== ENCOUNTER → 2022-05-01 12:55 | Outpatient (BNVA) | payer MEDICARE, SELFPAY | PROVIDERS: PCP Internal Medicine; Visit Provider Urology | DX: E29.1 Testicular hypofunction (principal) | CPT/HCPCS: 96372 ==

== ENCOUNTER 2022-05-03 12:23 | Outpatient (REF) | payer OTHER, SELFPAY ==
[2022-05-03 13:22] LABS: Hematocrit 46.4 % (42.0-52.0); Hemoglobin 15.5 g/dl (14.0-18.0); Mean Corpuscular HGB Conc 33.4 g/dl (31.0-36.0); Mean Corpuscular Hemoglobin 30.9 pg (27.0-33.0); Mean Corpuscular Volume 92.4 fL (80.0-98.0); Mean Platelet Volume 10.5 fL (9.4-12.4); Platelet Count 230 X10*3/uL (160-400); Red Blood Count 5.02 X10*6/uL (4.60-5.80); Red Cell Distribution Width 13.2 % (11.0-16.0)
[2022-05-03 14:01] LABS: PSA,Total (Free>4and<10) 4.99 ng/mL (0.00-4.00)
[2022-05-06 20:17] LABS: Free Prostate Spec Ag 0.6 ng/mL; Percent Free Prostate Spec Ag 12 % (calc) (>25); Prostate Specific Ag Total 4.9 ng/mL (< OR = 4.0)
[2022-05-09 13:46] LABS: Testosterone, Total 1499 ng/dL (250-1100)
== END 2022-05-03 12:24 | disposition home or self-care (01) ==
LOC: HO.LAB 12:23
PROVIDERS: PCP Internal Medicine; Visit Provider Urology
DX: N40.1 Benign prostatic hyperplasia with lower urinary tract symptoms (principal); E29.1 Testicular hypofunction; N13.8 Other obstructive and reflux uropathy; Z12.5 Encounter for screening for malignant neoplasm of prostate
CPT/HCPCS: 36415; 84153; 84154; 84403; 85027

== ENCOUNTER → 2022-05-15 12:47 | Outpatient (BNVA) | payer OTHER, SELFPAY | PROVIDERS: PCP Internal Medicine; Visit Provider Urology | DX: E29.1 Testicular hypofunction (principal); N52.01 Erectile dysfunction due to arterial insufficiency | CPT/HCPCS: 96372; 99212 ==

== ENCOUNTER 2022-05-22 11:26 | Outpatient (REF) | payer OTHER, SELFPAY ==
[2022-05-22 13:41] LABS: Hematocrit 45.9 % (42.0-52.0)
[2022-05-27 11:17] LABS: Testosterone, Total 819 ng/dL (250-1100)
== END 2022-05-22 11:27 | disposition home or self-care (01) ==
LOC: HO.10HDL 11:26
PROVIDERS: Visit Provider Urology
DX: Z12.5 Encounter for screening for malignant neoplasm of prostate (principal); E29.1 Testicular hypofunction
CPT/HCPCS: 36415; 84153; 84403; 85014

== ENCOUNTER 2022-05-23 11:47 | Outpatient (REF) | payer OTHER, SELFPAY ==
--- NOTE | ~2022-05-23 | XR_ITS ---
EXAMINATION: XR RIBS, LEFT CLINICAL INFORMATION: Chest and left RIBS. COMPARISON: None TECHNIQUE: 3 views of the left ribs were obtained. Chest one view. FINDINGS: Chest: The lungs are well-expanded and clear acute process. The heart size and pulmonary vascularity is normal. No gross bony abnormality seen. Multiple views left ribs reveal no visible fracture or dislocation. Especially there is no fracture involving the lateral ribs where a lead marker has been placed. XR/XR ribs LT min 3V w CXR1V IMPRESSION: Unremarkable chest exam and left rib exam.
== END 2022-05-23 11:48 | disposition home or self-care (01) ==
LOC: HO.XRAY 11:47
PROVIDERS: Absent Provider Internal Medicine; PCP Internal Medicine; Visit Provider Emergency Medicine
DX: R07.81 Pleurodynia (principal)
CPT/HCPCS: 71101

== ENCOUNTER → 2022-05-29 14:15 | Outpatient (BNVA) | payer OTHER, SELFPAY | PROVIDERS: PCP Internal Medicine; Visit Provider Urology | DX: E29.1 Testicular hypofunction (principal) | CPT/HCPCS: 96372 ==

== ENCOUNTER → 2022-06-13 13:32 | Outpatient (BNVA) | payer OTHER, SELFPAY | PROVIDERS: PCP Internal Medicine; Visit Provider Urology | DX: E29.1 Testicular hypofunction (principal) | CPT/HCPCS: 96372 ==

== ENCOUNTER → 2022-06-27 13:20 | Outpatient (BNVA) | payer OTHER, SELFPAY | PROVIDERS: PCP Internal Medicine; Visit Provider Urology | DX: E29.1 Testicular hypofunction (principal) | CPT/HCPCS: 96372 ==

== ENCOUNTER → 2022-07-11 13:08 | Outpatient (BNVA) | payer OTHER, SELFPAY | PROVIDERS: PCP Internal Medicine; Visit Provider Urology | DX: E29.1 Testicular hypofunction (principal) | CPT/HCPCS: 96372 ==

== ENCOUNTER → 2022-07-25 13:24 | Outpatient (BNVA) | payer OTHER, SELFPAY | PROVIDERS: PCP Internal Medicine; Visit Provider Urology | DX: E29.1 Testicular hypofunction (principal) | CPT/HCPCS: 96372 ==

== ENCOUNTER → 2022-08-08 14:11 | Outpatient (BNVA) | payer OTHER, SELFPAY | PROVIDERS: PCP Internal Medicine; Visit Provider Internal Medicine | DX: J44.9 Chronic obstructive pulmonary disease, unspecified (principal); G47.33 Obstructive sleep apnea (adult) (pediatric); E66.9 Obesity, unspecified; G25.81 Restless legs syndrome; Z79.899 Other long term (current) drug therapy; Z99.89 Dependence on other enabling machines and devices | CPT/HCPCS: 99212 ==

== ENCOUNTER → 2022-08-09 09:57 | Outpatient (BNVA) | payer OTHER, SELFPAY | PROVIDERS: PCP Internal Medicine; Visit Provider Urology | DX: E29.1 Testicular hypofunction (principal) | CPT/HCPCS: 96372 ==

== ENCOUNTER → 2022-08-23 10:53 | Outpatient (BNVA) | payer OTHER, SELFPAY | PROVIDERS: PCP Internal Medicine; Visit Provider Urology | DX: E29.1 Testicular hypofunction (principal); M77.8 Other enthesopathies, not elsewhere classified; M25.511 Pain in right shoulder | CPT/HCPCS: 20610; 96372; 99212; J1020 ==

== ENCOUNTER → 2022-09-06 10:44 | Outpatient (BNVA) | payer OTHER, SELFPAY | PROVIDERS: PCP Internal Medicine; Visit Provider Urology | DX: E29.1 Testicular hypofunction (principal) | CPT/HCPCS: 96372 ==

== ENCOUNTER 2022-09-11 13:44 | Outpatient (REF) | payer OTHER, SELFPAY ==
--- NOTE | ~2022-09-11 | XR_ITS ---
EXAMINATION: XR SHOULDER, LEFT CLINICAL INFORMATION: Left shoulder pain COMPARISON: None TECHNIQUE: AP external rotation, Grashey, scapular Y, and axillary views of the left shoulder. FINDINGS: There is mild acromioclavicular osteoarthritis. Glenohumeral joint is well preserved. No fracture. Alignment is anatomic. Soft tissues are normal with no abnormal calcifications. XR/XR shoulder LT min 2V IMPRESSION: Mild osteoarthritis of the acromioclavicular joint.
== END 2022-09-11 13:45 | disposition home or self-care (01) ==
LOC: HO.HOSX 13:44
PROVIDERS: Visit Provider Physician Assistant
DX: M75.82 Other shoulder lesions, left shoulder (principal); M19.012 Primary osteoarthritis, left shoulder; Z79.899 Other long term (current) drug therapy
CPT/HCPCS: 20610; 73030; 99212; J1020

== ENCOUNTER → 2022-10-02 13:36 | Outpatient (BNVA) | payer OTHER, SELFPAY | PROVIDERS: PCP Internal Medicine; Visit Provider Orthopaedic Surgery | DX: G56.03 Carpal tunnel syndrome, bilateral upper limbs (principal) | CPT/HCPCS: 99202 ==

== ENCOUNTER → 2022-10-04 13:47 | Outpatient (BNVA) | payer OTHER, SELFPAY | PROVIDERS: PCP Internal Medicine; Visit Provider Urology | DX: E29.1 Testicular hypofunction (principal) | CPT/HCPCS: 96372 ==

== ENCOUNTER → 2022-10-21 11:03 | Outpatient (BNVA) | payer OTHER, SELFPAY | PROVIDERS: PCP Internal Medicine; Visit Provider Urology | DX: E29.1 Testicular hypofunction (principal) | CPT/HCPCS: 96372 ==

== ENCOUNTER 2022-11-01 11:20 | Outpatient (REF) | payer OTHER, SELFPAY ==
[2022-11-01 14:20] LABS: Prostate Specific Antigen 4.56 ng/mL (<0.05-4.0)
[2022-11-09 13:34] LABS: Testosterone, Total 508 ng/dL (250-1100)
== END 2022-11-01 11:21 | disposition home or self-care (01) ==
LOC: HO.10HDL 11:20
PROVIDERS: Visit Provider Urology
DX: E29.1 Testicular hypofunction (principal); Z12.5 Encounter for screening for malignant neoplasm of prostate
CPT/HCPCS: 36415; 84153; 84403

== ENCOUNTER → 2022-11-19 14:09 | Outpatient (BNVA) | payer OTHER, SELFPAY | PROVIDERS: PCP Internal Medicine; Visit Provider Urology | DX: E29.1 Testicular hypofunction (principal); N52.01 Erectile dysfunction due to arterial insufficiency; Z79.899 Other long term (current) drug therapy | CPT/HCPCS: 99212 ==

== ENCOUNTER → 2022-11-20 13:06 | Outpatient (BNVA) | payer OTHER, SELFPAY | PROVIDERS: PCP Internal Medicine; Visit Provider Urology | DX: E29.1 Testicular hypofunction (principal) | CPT/HCPCS: 96372 ==

== ENCOUNTER → 2022-12-04 13:01 | Outpatient (BNVA) | payer OTHER, SELFPAY | PROVIDERS: PCP Internal Medicine; Visit Provider Urology | DX: E29.1 Testicular hypofunction (principal) | CPT/HCPCS: 96372 ==

== ENCOUNTER 2022-12-12 11:53 | Day surgery (SDC) | payer OTHER, SELFPAY ==
[2022-12-12 12:03] VITALS: BMI 30.7
[2022-12-12 12:22] LABS: Glucose, Whole Blood 158 mg/dL (60-115)
--- NOTE | 2022-12-12 13:56 | MHC.SHP ---
Pre-Procedural Eval Section A Date of Service: 12/12/22 The patient is an INPATIENT: No Changes since office visit: No Cold of Flu in the past 2 weeks, No New Medical Problems, No Changes in Medication and No Patient answered all questions The History & Physical has been completed within 30 days and I have reviewed it.: Yes Section B Chief Complaint: Carpal tunnel syndrome, right upper limb Allergies: Allergies Allergy/AdvReac Type Severity Reaction Status Date / Time hydrochlorothiazide Allergy Unknown unknown Verified 11/19/22 14:31 lisinopril Allergy Unknown unknown Verified 11/19/22 14:31 olmesartan Allergy Unknown unknown Verified 11/19/22 14:31 venom-honey bee Allergy Unknown unknown Verified 11/19/22 14:31 Plan I have reviewed the history and physical and performed a pertinent physical examination on my patient. No changes have occurred unless specified. Time Spent With Patient Time: Total time managing care of this patient today ____ minutes.
--- NOTE | 2022-12-12 13:56 | W.PM.OPN ---
Operative Note Operative Note Date of Service: 12/12/22 Narrative: Preop diagnosis: 1. Right Carpal tunnel syndrome Postop diagnosis: same Procedure: 1. right Carpal tunnel release Surgeon: Barb Bajwa MD Anesthesia: local block using 1% lidocaine with epinephrine Findings: Thickened transverse carpal ligament. EBL: Less than 5 mL Specimens: None Complications: None Disposition: Brought to recovery room in stable condition Plan: Follow-up for 10-14 days for wound check and suture removal Indications: The patient is 77 years old, with right carpal tunnel syndrome that has been unresponsive to nonoperative management. The risks and benefits of operative treatment including but not limited to risk of damage to blood vessels, nerves, tendons, infection, persistent pain, persistent symptoms, or possible need for additional surgery were discussed with the patient and the patient wishes to proceed with surgery. Procedure: Once consent was obtained a local block was performed using a combination of 1% lidocaine with epinephrine. The patient was then brought back to the operating suite and placed on the operative table in supine position. The for right upper extremity was prepped and draped in a standard surgical fashion. Once assured that we had a good block, a 2.0 cm longitudinal incision was made centered over the carpal tunnel. The incision was made through the skin to the subcutaneous tissues using a #15 blade. Dissection was made down to the level of the transverse carpal ligament with care being taken to protect the palmar cutaneous nerve. Once the transverse carpal ligament was clearly visualized, a longitudinal incision was made in the transverse carpal ligament 1st using a #15 blade, then using tenotomy scissors under direct visualization. Care was taken to look for and protect the motor branch of the median nerve when seen in this area. Once satisfied with our carpal tunnel release the wound was copiously irrigated with normal saline and hemostasis was obtained with a brief period of local pressure. The skin edges were reapproximated with some 5.0 nylon suture material and a sterile dressing was applied. The patient appears to have tolerated the procedure well and with no complications. All digits were well vascularized at the conclusion of the case.
[2022-12-12 14:00] VITALS: BP 141/71; PULSE 96; RESP 16; TEMP 36.6; O2SAT 96
== END 2022-12-12 14:31 | disposition home or self-care (01) ==
PROVIDERS: PCP Internal Medicine; Visit Provider Orthopaedic Surgery
PROC: (CPT 64721; principal; 2022-12-12 12:50)
DX: G56.01 Carpal tunnel syndrome, right upper limb (principal); R20.0 Anesthesia of skin; R20.2 Paresthesia of skin; J44.9 Chronic obstructive pulmonary disease, unspecified; G47.33 Obstructive sleep apnea (adult) (pediatric); I49.9 Cardiac arrhythmia, unspecified; I10 Essential (primary) hypertension; E11.9 Type 2 diabetes mellitus without complications; E66.9 Obesity, unspecified; Z68.30 Body mass index [BMI] 30.0-30.9, adult; Z88.8 Allergy status to other drugs, medicaments and biological substances; Z87.891 Personal history of nicotine dependence
CPT/HCPCS: 64721; 82947; J0171

== ENCOUNTER → 2022-12-16 14:01 | Outpatient (BNVA) | payer OTHER, SELFPAY | PROVIDERS: Visit Provider Physician Assistant | DX: M19.012 Primary osteoarthritis, left shoulder (principal) | CPT/HCPCS: 20610; 99212; J1020 ==

== ENCOUNTER → 2022-12-23 13:06 | Outpatient (BNVA) | payer OTHER, SELFPAY | PROVIDERS: PCP Internal Medicine; Visit Provider Urology | DX: E29.1 Testicular hypofunction (principal) | CPT/HCPCS: 96372 ==

== ENCOUNTER → 2022-12-25 14:33 | Outpatient (BNVA) | payer OTHER, SELFPAY | PROVIDERS: PCP Internal Medicine; Visit Provider Orthopaedic Surgery | DX: Z13.89 Encounter for screening for other disorder (principal) ==

== ENCOUNTER → 2023-01-08 14:49 | Outpatient (BNVA) | payer OTHER, SELFPAY | PROVIDERS: PCP Internal Medicine; Visit Provider Urology | DX: E29.1 Testicular hypofunction (principal) | CPT/HCPCS: 96372 ==

== ENCOUNTER → 2023-01-22 13:57 | Outpatient (BNVA) | payer OTHER, SELFPAY | PROVIDERS: PCP Internal Medicine; Visit Provider Urology | DX: E29.1 Testicular hypofunction (principal) | CPT/HCPCS: 96372 ==

== ENCOUNTER → 2023-02-07 13:11 | Outpatient (BNVA) | payer OTHER, SELFPAY | PROVIDERS: PCP Internal Medicine; Visit Provider Urology | DX: E29.1 Testicular hypofunction (principal) | CPT/HCPCS: 96372 ==

== ENCOUNTER → 2023-02-18 14:03 | Outpatient (BNVA) | payer OTHER, SELFPAY | PROVIDERS: PCP Internal Medicine; Visit Provider Internal Medicine | DX: Z48.811 Encounter for surgical aftercare following surgery on the nervous system (principal); G56.02 Carpal tunnel syndrome, left upper limb; G47.33 Obstructive sleep apnea (adult) (pediatric); J44.9 Chronic obstructive pulmonary disease, unspecified; E66.9 Obesity, unspecified; G25.81 Restless legs syndrome; Z99.89 Dependence on other enabling machines and devices; Z68.31 Body mass index [BMI] 31.0-31.9, adult | CPT/HCPCS: 99212 ==

== ENCOUNTER → 2023-02-21 13:33 | Outpatient (BNVA) | payer OTHER, SELFPAY | PROVIDERS: PCP Internal Medicine; Visit Provider Urology | DX: E29.1 Testicular hypofunction (principal) | CPT/HCPCS: 96372 ==

== ENCOUNTER → 2023-03-11 10:42 | Outpatient (BNVA) | payer OTHER, SELFPAY | PROVIDERS: PCP Internal Medicine; Visit Provider Urology | DX: E29.1 Testicular hypofunction (principal) | CPT/HCPCS: 96372 ==

== ENCOUNTER → 2023-03-26 12:59 | Outpatient (BNVA) | payer OTHER, MEDICAID, SELFPAY | PROVIDERS: PCP Internal Medicine; Visit Provider Physician Assistant | DX: M19.012 Primary osteoarthritis, left shoulder (principal); M75.82 Other shoulder lesions, left shoulder | CPT/HCPCS: 20610; 99212; J1020 ==

== ENCOUNTER 2023-03-28 13:00 | Outpatient (RCR) | payer OTHER, SELFPAY ==
--- NOTE | 2023-03-05 13:57 | MHC.OT.EP ---
[address] [phone] Occupational Therapy Plan of Care Patient Name: Jose Ramon Feliciano Date of Evaluation: 03/05/23 Diagnosis: S/P R CTR Pain Location: R VOLAR HAND 3-4/10 AT REST, 7-8/10 AT NIGHT Pain Score: 3-8/10 Pain Scale Used: Numeric (0 - 10) Aggravating Factors: LIFTING, SLEEPING, WRIST EXTENSION, VARIOUS TEXTURES AT SURGICAL SITE Alleviating Factors: TAKING PAIN MEDICATION: PERCOCET, MOTRIN. OCCASIONALLY USING HEAT AND ICE. Assessment: MR FELICIANO IS 11.5 WEEKS POST OP FROM R CTR WITH DR PADILLA. HE STATES LOW TO MODERATE PAIN. HE IS ABLE TO DO MOST ADLs AND LIGHT IADLs. HE REPORTS SOME HYPERSENSITIVITY AT THE VOLAR WRIST AND DIFFICULTIES LIFTING HEAVIER ITEMS. A 23% LIMITATION IS REPORTED PER THE QUICK DASH ASSESSMENT. ONGOING SKILLED OT IS WARRANTED TO ACHIEVE MAXIMUM FUNCTIONAL LEVEL AND IMPROVE QOL. Frequency and Duration: The patient will be seen 2X/WEEK FOR 3 WEEKS Short Term Goals: IND HEP IND SCAR MOBILIZATION AND DESENSITIZATION STRATEGIES MOSTLY PAINFREE AT REST AND LIGHT ADLs Group Home Goals: INCREASE R GROSS GRASP >60 POUNDS REPORT <3/10 PAIN WITH LIFTING >10 POUNDS FLOOR TO WAIST FOR SIMULATED IADLs QUICK DASH <15% Treatment Plan: Therapeutic Exercise Therapeutic Activity Home Exercise Program Splinting Neuro Re-ed Patient Education Desensitization/Sensory Re-ed Edema Control ADL Training Ultrasound NMES Iontophoresis Paraffin Fluidotherapy MHP Cold Packs Joint Mobilization Soft Tissue Mobilization Kinesiotaping Other (see comments) Electronically Signed By: BRIGITTE TORRES OTR/L Please Sign and return to therapist. Thank you once again for your referral.
--- NOTE | 2023-03-28 13:33 | MHC.OT.DC ---
[address] [phone] F: [phone] Occupational Therapy Discharge Note Patient Name: Jose Ramon Feliciano Provider: Barb Bajwa Diagnosis: S/P R CTR Date of Surgery: 12/12/22 Date of Evaluation: 03/05/23 Date of Discharge: 03/28/23 Treatments to Date: 5 Cancellations to Date: No Shows to Date: Discharge Status: Achieved Goals Improved Function Independent with HEP Discharge Summary: HAS MET ALL GOALS FOR RIGHT HAND ROM, WRIST AND CLINICAL MICROBIOLOGIST STRENGTH, HAND FUNCTION AND IMPROVING SENSATION. OCCASIONAL MILD PARESTHESIA. QUICK DASH SCORE OF 11 PTS, Pt DID NOT INCLUDE LEFT SHOULDER OA JT PAIN OR LEFT CTS. Pt IS SCHEDULED FOR CTR ON 05/05/23. Pt HAD LEFT SHOULDER INJECTED YESTERDAY Electronically Signed By: ANGEL SALVADOR OT ,CHT CLT Reviewed/agree with student documentation: N/A Therapist: Please Sign and return to therapist, thank you for your referral.
== END 2023-03-28 13:50 | disposition home or self-care (01) ==
LOC: HO.OT 13:00
PROVIDERS: PCP Internal Medicine; Visit Provider Orthopaedic Surgery
DX: G56.03 Carpal tunnel syndrome, bilateral upper limbs (principal)
CPT/HCPCS: 97035; 97110; 97140; 97165

== ENCOUNTER → 2023-03-28 14:36 | Outpatient (BNVA) | payer OTHER, MEDICAID, SELFPAY | PROVIDERS: PCP Internal Medicine; Visit Provider Urology | DX: E29.1 Testicular hypofunction (principal) | CPT/HCPCS: 96372 ==

== ENCOUNTER → 2023-04-11 13:00 | Outpatient (BNVA) | payer OTHER, MEDICAID, SELFPAY | PROVIDERS: PCP Internal Medicine; Visit Provider Urology | DX: E29.1 Testicular hypofunction (principal) | CPT/HCPCS: 96372 ==

== ENCOUNTER 2023-05-06 10:05 | Outpatient (REF) | payer OTHER, MEDICAID, SELFPAY ==
[2023-05-06 11:10] LABS: Hematocrit 44.7 % (42.0-52.0); Hemoglobin 14.8 g/dl (14.0-18.0); Mean Corpuscular HGB Conc 33.1 g/dl (31.0-36.0); Mean Corpuscular Hemoglobin 30.4 pg (27.0-33.0); Mean Corpuscular Volume 91.8 fL (80.0-98.0); Mean Platelet Volume 10.1 fL (9.4-12.4); Platelet Count 239 X10*3/uL (160-400); Red Blood Count 4.87 X10*6/uL (4.60-5.80); White Blood Count 7.3 X10*3/uL (4.8-10.8)
[2023-05-06 12:26] LABS: Prostate Specific Antigen 3.95 ng/mL (<0.05-4.0)
[2023-05-12 10:39] LABS: Testosterone, Total 104 ng/dL (250-1100)
== END 2023-05-06 10:06 | disposition home or self-care (01) ==
LOC: HO.10HDL 10:05
PROVIDERS: Visit Provider Urology
DX: Z12.5 Encounter for screening for malignant neoplasm of prostate (principal); E29.1 Testicular hypofunction
CPT/HCPCS: 36415; 84153; 84403; 85027; 96372

== ENCOUNTER 2023-05-13 13:53 | Outpatient (REF) | payer OTHER, MEDICAID, SELFPAY | END 2023-05-13 13:54 | disposition home or self-care (01) | LOC: HO.HOSX 13:53 | PROVIDERS: PCP Internal Medicine; Visit Provider Orthopaedic Surgery | DX: S63.617A Unspecified sprain of left little finger, initial encounter (principal) | CPT/HCPCS: 73130; 99212 ==

== ENCOUNTER → 2023-05-21 13:14 | Outpatient (BNVA) | payer OTHER, MEDICAID, SELFPAY | PROVIDERS: PCP Internal Medicine; Visit Provider Urology | DX: E29.1 Testicular hypofunction (principal) | CPT/HCPCS: 96372 ==

== ENCOUNTER 2023-06-04 14:12 | Outpatient (AMB) | payer OTHER, SELFPAY ==
--- NOTE | 2023-06-04 15:03 | A.OFFVIS_ITS ---
Intake Intake Visit Reasons: 6m follow up/Labs(SET) Intake Note: * Patient presents today for a 6mo follow-up with Labs results * Meds- Sildenafil & Tadalafil & Testosterone Cypio * Allergies to Antibiotic- None * Blood Thinner- None Pulp Drier Firer Required: No Accompanied by: Self / Same As Patient Allergies hydrochlorothiazide Allergy (Unknown, Verified 06/04/23 15:03) unknown lisinopril Allergy (Unknown, Verified 06/04/23 15:03) unknown olmesartan Allergy (Unknown, Verified 06/04/23 15:03) unknown venom-honey bee Allergy (Unknown, Verified 06/04/23 15:03) unknown HPI HPI Comments History of Present Illness Details Jose Ramon is a pleasant Bahraini-speaking male. He is here for the following urologic condition - hypogonadism - erectile dysfunction Bahraini translation provided by qualified medical dosimetrist Here for follow-up T is low but timing on lab work was off Continue shot every 2 weeks Lab work should be done 1 week after shot Did discuss use of tadalafil. Continue with 10 mg daily Hypogonadism 1 ml 200 mg per cc testosterone every 2 weeks Given without issue Last measured testosterone 400 04/30/21, PSA 4.1 - 11/13 PSA 4.9 T pending, 05/15 1499 46, 11/14 PSA 4.6 T 508 lab day friday, 05/16 104 P 3.9 Erectile dysfunction. Declining response to Viagra demand Switched to daily tadalafil [facility] Medical History Arrhythmia Arthritis Asthma Back pain Carpal tunnel syndrome COPD (chronic obstructive pulmonary disease) COPD (chronic obstructive pulmonary disease) DMII (diabetes mellitus, type 2) GERD (gastroesophageal reflux disease) HTN (hypertension) Lumbar disc herniation Obesity (BMI 30-39.9) ALLY on CPAP RLS (restless legs syndrome) RLS (restless legs syndrome) Syncope Surgical History History of cervical spinal surgery History of cholecystectomy History of lumbosacral spine surgery Family History Father Stroke Social History Household Members: Spouse Housing: Apartment Alcohol intake: never Patient Tobacco Use Status: Former Tobacco user Current occupational status: retired Current occupation: rt handed Review of Systems Const Denies chills and Denies fever(s) Card Reports no additional complaints and Denies syncope Resp Denies cough GI Denies abdominal pain and Denies heartburn Reports as per HPI and Denies change in libido Neuro Denies syncope Psych Denies change in libido Endo Denies change in libido Physical Exam Const General: cooperative, healthy appearing, comfortable and no acute distress Orientation/consciousness: patient oriented x3 HEENT Face and sinus: Yes normal facial exam Mouth: moist mucous membranes Neck Neck: Yes normal visual inspection, Yes full ROM and Yes trachea midline Chest Chest palpation & inspection: normal inspection of the chest Resp Effort & Inspection: normal respiratory effort, able to speak in complete sentences and no respiratory distress GI Inspection: Yes normal to inspection Back/Spine/Pelvis Cervical Spine: normal cervical lordosis Thoracic/Lumbar Spine: thoracic and lumbar spine normal to inspection Skin General skin exam: no rashes or lesions noted Neuro General: patient oriented x3, gait normal, tone normal and moves all extremities Extrem General: Yes normal to inspection and Yes capillary refill normal Results AMB Urinalysis, Automated UA Leukoctes 0 Carlos/uL Last Edit by KHADRA Barbour on 06/04/23 16:10 UA Nitrite Negative Last Edit by KHADRA Barbour on 06/04/23 16:10 UA Urobilinogen 0.2 mg/dL Last Edit by KHADRA Barbour on 06/04/23 16:1 0 UA Protein 0 mg/dL Last Edit by KHADRA Barbour on 06/04/23 16:10 UA pH 6.0 Last Edit by KHADRA Barbour on 06/04/23 16:10 UA Blood 0 Zack/uL Last Edit by KHADRA Barbour on 06/04/23 16:10 UA Specific Shonto 1.025 Last Edit by KHADRA Barbour on 06/04/23 16: 10 UA Ketone Negative Last Edit by KHADRA Barbour on 06/04/23 16:10 UA Bilirubin 1 mg/dL Last Edit by KHADRA Barbour on 06/04/23 16:10 1+ Lynn Jang 06/04/23 16:10 UA Glucose 0 mg/dL Last Edit by KHADRA Barbour on 06/04/23 16:10 Results Reviewed Results Reviewed: Laboratory Last Values Urine pH (Auto) 6.0 06/04/23 15:04 Specific Shonto (Auto) 1.025 06/04/23 15:04 Urine Protein (Auto) 0 mg/dL 06/04/23 15:04 Glucose (UA)(Auto) 0 mg/dL 06/04/23 15:04 Urine Ketones (Auto) Negative 06/04/23 15:04 Urine Blood (Auto) 0 Zack/uL 06/04/23 15:04 Urine Nitrite (Auto) Negative 06/04/23 15:04 Urine Bilirubin (Auto) 1 mg/dL 06/04/23 15:04 Urine Urobilinogen (Auto) 0.2 mg/dL 06/04/23 15:04 Leukocyte Esterase (Auto) 0 Carlos/uL 06/04/23 15:04 Assessment & Plan Assessment & Plan (1) Erectile dysfunction due to arterial insufficiency: Code(s): N52.01 - Erectile dysfunction due to arterial insufficiency (2) Hypogonadism in male: Code(s): E29.1 - Testicular hypofunction Plan 6 month follow-up Orders: Orders Prostate Specific Antigen 6 Months E29.1 - Testicular hypofunction Testosterone, Total 6 Months E29.1 - Testicular hypofunction Complete Blood Count no Diff 6 Months E29.1 - Testicular hypofunction AMB Post Void Residual by ultrasound 06/04/23 N39.8 - Other specified disorders of urinary system AMB Urinalysis Automated 06/04/23 Z13.9 - Encounter for screening, unspecified Medications: Refilled tadalafil 10 mg PO DAILY 90 days 90 tabs 1RF sexual activity E29.1 - Testicular hypofunction Patient Instructions: Imaging studies, laboratory and physical exam results were discussed and re viewed in detail. No major barriers to patient understanding were identified. An opportunity to ask questions regarding the treatment plan was provided. All questions were answered. The patient expressed understanding and agreement with the above treatment plan. The patient is aware they should contact our office by phone for worsening of their current condition or the appearance of new urologic symptoms. Compliance is encouraged with any medications and followup testing that is ordered. It is a privilege to participate in the urologic care of your patient. If you have any questions or concerns regarding treatment for the above conditions, or other urologic issues, please do not hesitate to contact me. The office telephone contact is [phone]. This note is constructed using voice recognition software. While every effort has been made to ensure accuracy installer apprentice errors may have been included. Yours sincerely, Dr Sean Landis MD, [facility] - Urology Providers of Expert, Compassionate Care for the Genitourinary System Coding Level of Care Code Est Pt Level 3 (72944) Diagnoses Erectile dysfunction due to arterial insufficiency N52.01 Hypogonadism in male E29.1
== END 2023-06-04 15:56 | disposition home or self-care (01) ==
PROVIDERS: Visit Provider Urology
DX: N52.01 Erectile dysfunction due to arterial insufficiency (principal); E29.1 Testicular hypofunction
CPT/HCPCS: 99213

== ENCOUNTER → 2023-06-04 14:12 | Outpatient (BNVA) | payer OTHER, SELFPAY | PROVIDERS: Visit Provider Urology | DX: N52.01 Erectile dysfunction due to arterial insufficiency (principal); E29.1 Testicular hypofunction | CPT/HCPCS: 99212 ==

== ENCOUNTER 2023-06-25 14:22 | Outpatient (AMB) | payer OTHER, SELFPAY ==
--- NOTE | 2023-06-25 14:28 | AM.OFFVISNUR ---
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
== END 2023-06-25 14:49 | disposition home or self-care (01) ==
PROVIDERS: PCP Internal Medicine; Visit Provider Urology
DX: E29.1 Testicular hypofunction (principal)

== ENCOUNTER → 2023-06-25 14:22 | Outpatient (BNVA) | payer OTHER, SELFPAY | PROVIDERS: PCP Internal Medicine; Visit Provider Urology | DX: E29.1 Testicular hypofunction (principal) | CPT/HCPCS: 96372 ==

== ENCOUNTER 2023-07-31 13:35 | Outpatient (AMB) | payer OTHER, SELFPAY ==
--- NOTE | 2023-07-31 13:38 | AM.OFFVISNUR ---
Intake Intake Visit Reasons: 2 week testo injection Allergies hydrochlorothiazide Allergy (Unknown, Verified 06/04/23 15:03) unknown lisinopril Allergy (Unknown, Verified 06/04/23 15:03) unknown olmesartan Allergy (Unknown, Verified 06/04/23 15:03) unknown venom-honey bee Allergy (Unknown, Verified 06/04/23 15:03) unknown Office Meds testosterone cypionate 200 mg/mL intramuscular kit Performing Provider: Sean Landis MD [place] [facility] [place] [facility] Administered by: Suzette Adams RN on 07/31/23 13:38 Dose Route Admin Location Dispensed Lot Number Expiration Date [facility] Piper Installer 160 mg IM right deltoid 1 ea [id number] 10/24/25 1353-4566-66 Coding Assessment & Plan Assessment & Plan Orders: Orders AMB Testosterone Injection Patient Supplied Today E29.1 - Testicular hypofunction
== END 2023-07-31 13:49 | disposition home or self-care (01) ==
LOC: HO.HUSH 13:35
PROVIDERS: PCP Internal Medicine; Visit Provider Urology
DX: E29.1 Testicular hypofunction (principal)

== ENCOUNTER → 2023-07-31 13:35 | Outpatient (BNVA) | payer OTHER, SELFPAY | PROVIDERS: PCP Internal Medicine; Visit Provider Urology | DX: E29.1 Testicular hypofunction (principal) | CPT/HCPCS: 96372 ==

== ENCOUNTER 2023-08-13 13:58 | Outpatient (AMB) | payer OTHER, SELFPAY ==
--- NOTE | 2023-08-13 14:09 | AM.OFFVISNUR ---
Intake Intake Visit Reasons: 2w testo injection Allergies hydrochlorothiazide Allergy (Unknown, Verified 06/04/23 15:03) unknown lisinopril Allergy (Unknown, Verified 06/04/23 15:03) unknown olmesartan Allergy (Unknown, Verified 06/04/23 15:03) unknown venom-honey bee Allergy (Unknown, Verified 06/04/23 15:03) unknown Office Meds testosterone cypionate 200 mg/mL intramuscular kit Performing Provider: Sean Landis MD [place] [facility] [place] [facility] Administered by: Suzette Adams RN on 08/13/23 14:09 Dose Route Admin Location Dispensed Lot Number Expiration Date [facility] Pediatric Dental Hygienist 160 mg IM left deltoid 1 ea [id number] 10/24/25 9420-4569-88 Coding Assessment & Plan Assessment & Plan Orders: Orders AMB Testosterone Injection Patient Supplied Today E29.1 - Testicular hypofunction
== END 2023-08-13 14:19 | disposition home or self-care (01) ==
PROVIDERS: PCP Internal Medicine; Visit Provider Urology
DX: E29.1 Testicular hypofunction (principal)

== ENCOUNTER → 2023-08-13 13:58 | Outpatient (BNVA) | payer OTHER, SELFPAY | PROVIDERS: PCP Internal Medicine; Visit Provider Urology | DX: E29.1 Testicular hypofunction (principal) | CPT/HCPCS: 96372 ==

== ENCOUNTER 2023-08-18 13:43 | Outpatient (AMB) | payer OTHER, SELFPAY ==
[2023-08-18 14:17] VITALS: BP 130/70; PULSE 61; O2SAT 96; BMI 30.9
--- NOTE | 2023-08-18 14:17 | MHC.OFFVIS ---
Intake Vital Signs 08/18/23 14:17 Height 5 ft 4 in Weight 180 lb BMI 30.9 BP 130/70 Blood Pressure Location Lt brachial Position Sitting Pulse 61 Pulse Source Pulse Oximeter Pulse Oximetry (%) 96 Oxygen Delivery Method Room Air Intake Visit Reasons: COPD Intake Note: pt is here for follow up and is liking his new nasal mask. He states he is the same. Passenger Service Agent Required: No Allergies hydrochlorothiazide Allergy (Unknown, Verified 08/18/23 14:44) unknown lisinopril Allergy (Unknown, Verified 08/18/23 14:44) unknown olmesartan Allergy (Unknown, Verified 08/18/23 14:44) unknown venom-honey bee Allergy (Unknown, Verified 08/18/23 14:44) unknown Medication List - Last Reconciled 08/18/23 by Celestina Denney MD albuterol sulfate 90 mcg/actuation (Ventolin HFA) 2 puffs PO Q4-6H PRN amlodipine 10 mg PO QAM celecoxib (Celebrex) 200 mg PO BID PRN 30 days chlorthalidone 12.5 mg PO QAM cholecalciferol (vitamin D3) 50 mcg PO QAM diclofenac sodium 1% 2 grams topical QID Flovent HFA 220 mcg/actuation (fluticasone propionate) 2 puffs PO BID NS glipizide ER 2.5 mg PO DAILY hydrocodone-acetaminophen 5-325 mg 1 tab PO Q4-6H PRN ipratropium-albuterol 0.5 mg-3 mg(2.5 mg base)/3 mL mL inhalation Q6H PRN ketotifen fumarate 0.025%(0.035%) 1 drp ophthalmic (eye) BID leg brace (Knee Support Brace) knee support genumed [id number] leg brace (Knee Support Brace) Please reprint genumed rx leg brace (Knee Support Brace) knee support genumed [id number] levocetirizine 5 mg PO BEDTIME losartan 50 mg PO DAILY losartan 100 mg PO QAM metformin 1,000 mg PO BID montelukast 10 mg PO DAILY omeprazole 20 mg PO QAM ropinirole 4 mg PO BEDTIME sildenafil 100 mg PO DAILY PRN 30 days simvastatin 10 mg PO BEDTIME tadalafil 10 mg PO DAILY 90 days testosterone cypionate 160 mg (0.8 mL) IM Q2W 4 weeks Do you need a note to return to daycare/school/sports/work: No HPI COPD HPI Details 78 years old gentleman is here for follow-up after 6 months. Breathing has remained stable. He does need to use the nebulizer once or twice a day in addition to Flovent-220 2 puffs b.i.d. Has had no acute exacerbation. As for as CPAP is concerned he does use it every night, but lately his use per night has been less than 4 hours. He was having some issues with the fullface mask. Now he has gotten nasal air , which is more comfortable. He plans to use it regularly for more than 5 hours per night. [facility] Medical History RLS (restless legs syndrome) COPD (chronic obstructive pulmonary disease) ALLY on CPAP Obesity (BMI 30-39.9) RLS (restless legs syndrome) GERD (gastroesophageal reflux disease) COPD (chronic obstructive pulmonary disease) Carpal tunnel syndrome Lumbar disc herniation Back pain Syncope Arthritis Arrhythmia Asthma DMII (diabetes mellitus, type 2) HTN (hypertension) Surgical History History of cervical spinal surgery History of lumbosacral spine surgery History of cholecystectomy Family History Father Stroke Social History Household Members: Spouse Housing: Apartment Alcohol intake: never Patient Tobacco Use Status: Former Tobacco user Current occupational status: retired Current occupation: rt handed Review of Systems Const All systems reviewed & are unremarkable except as noted in HPI and below Eyes Reports no additional complaints ENT Reports nasal congestion (Chronic intermittent, with minimal postnasal discharge.) Card Denies chest pain, Denies irregular heart rhythm and Denies leg edema Resp Reports as per HPI GI Reports no additional complaints Reports erectile dysfunction Musc Reports back pain and Reports arthralgias (knees ) Skin/Breast Reports system reviewed and no additional complaints, except as documented Neuro Reports no additional complaints Psych Reports no additional complaints Physical Exam Vital Signs: Last Vital Signs Pulse 61 08/18/23 14:17 BP 130/70 08/18/23 14:17 Pulse Ox 96 08/18/23 14:17 Oxygen Delivery Method Room Air 08/18/23 14:17 BMI result Body Mass Index 30.9 Const General: healthy appearing (Except for being overweight,, Weight down by 6 LBs .), comfortable, no acute distress, alert and awake Orientation/consciousness: patient oriented x3 HEENT Head: Yes normal to inspection General nose exam: No nasal polyps present and No nasal discharge present Face and sinus: Yes sinuses nontender Mouth: oropharynx normal Throat: Yes posterior oropharynx normal Eyes General: appearance normal, both eyes and all related structures Neck Neck: Yes normal visual inspection, Yes no lymphadenopathy, Yes trachea midline and Yes no JVD Thyroid: Thyroid normal Chest Chest palpation & inspection: normal inspection of the chest, normal palpation of entire chest wall and no tenderness Resp Other: Percussion note is resonant. He has good breath sounds on both sides, slightly distant with prolonged expiratory phase. HAS SCATTERED FEW WHEEZES OVER THE LOWER LOBE AREAS. Cardio Palpation: normal PMI Rate: regular rate Rhythm: regular rhythm Heart sounds: no gallops and no murmurs GI Palpation (GI): Soft to palpation, nontender, No hepatosplenomegaly present and no masses Auscultation: normal bowel sounds Back/Spine/Pelvis Thoracic/Lumbar Spine: thoracic and lumbar spine normal to inspection and thoraco-lumbar ROM limited Skin General skin exam: no rashes or lesions noted Neuro General: patient oriented x3 and no focal motor deficits Cranial nerves: Yes CN's II-XII intact bilaterally Extrem General: Yes normal to inspection, Yes no clubbing, cyanosis or edema and Yes no calf tenderness Psych Appearance: grossly normal and well kempt Speech and movement: Normal speech and movement present Results Reviewed Results Reviewed: Compliance report for the last 30 nights is reviewed. Used 28/30 nights., 93% Average use per night 3 hours 55 minutes. Residual AHI 4.4 Assessment & Plan Assessment & Plan (1) COPD (chronic obstructive pulmonary disease): Comment: COPD HAS BEEN QUITE STABLE. CONT. THE SAME MEDS : FLOVENT-220 2 PUFFS BID , DUONEB UDs TID , May use ALBUTEROL HFA 2 PUFFS Q 6 HRS ONLY PRN . Code(s): J44.9 - Chronic obstructive pulmonary disease, unspecified (2) ALLY on CPAP: Comment: OBSTRUCTIVE SLEEP APNEA IS BEING MANAGED VERY WELL WITH THE CPAP. HE IS VERY COMPLIANT AND BENEFITTING. COMPLIANCE REPORT IS REVIEWED AND THE USAGE HAS BEEN LESS THAN OPTIMAL. HE IS EXPLAINED ABOUT HIS SUBOPTIMAL USE. NOW RECOMMENDED THAT HE SHOULD USE CPAP EVERY NIGHT FOR AT LEAST 5 HOURS. NEW INTERFACE ( NASAL AIR ) HAS BEEN PROVIDED AND HE PROMISES THAT HE IS GOING TO USE MORE THAN 5 HOURS EVERY NIGHT. Code(s): G47.33 - Obstructive sleep apnea (adult) (pediatric); Z99.89 - Dependence on other enabling machines and devices (3) Obesity (BMI 30-39.9): Comment: HE IS MODERATELY OBESE, HE IS WELL AWARE OF THIS AND TRIES TO WATCH HIS DIET. HE IS ADVISED TO CONTINUE LOSING 1 OR 2 LB EVERY MONTH. Code(s): E66.9 - Obesity, unspecified (4) RLS (restless legs syndrome): Comment: CHRONIC, PROBLEM IN ADDITION TO OBSTRUCTIVE SLEEP APNEA. CONTROLLED WITH THE USE OF ROPINIROLE 4 MG AT BEDTIME Code(s): G25.81 - Restless legs syndrome Coding Level of Care Code Est Pt Level 4 (03567) Diagnoses COPD (chronic obstructive pulmonary disease) J44.9 ALLY on CPAP G47.33; Z99.89 Obesity (BMI 30-39.9) E66.9 RLS (restless legs syndrome) G25.81
== END 2023-08-18 14:45 | disposition home or self-care (01) ==
PROVIDERS: PCP Internal Medicine; Visit Provider Internal Medicine
DX: J44.9 Chronic obstructive pulmonary disease, unspecified (principal); G47.33 Obstructive sleep apnea (adult) (pediatric); Z99.89 Dependence on other enabling machines and devices; E66.9 Obesity, unspecified; G25.81 Restless legs syndrome
CPT/HCPCS: 99214

== ENCOUNTER → 2023-08-18 13:43 | Outpatient (BNVA) | payer OTHER, SELFPAY | PROVIDERS: Visit Provider Internal Medicine | DX: J44.9 Chronic obstructive pulmonary disease, unspecified (principal); G47.33 Obstructive sleep apnea (adult) (pediatric); G25.81 Restless legs syndrome; E66.9 Obesity, unspecified; Z99.89 Dependence on other enabling machines and devices; Z68.30 Body mass index [BMI] 30.0-30.9, adult | CPT/HCPCS: 99212 ==

== ENCOUNTER 2023-08-29 13:18 | Outpatient (AMB) | payer OTHER, SELFPAY ==
--- NOTE | 2023-08-29 13:38 | AM.OFFVISNUR ---
Intake Intake Visit Reasons: 2w testo injection Allergies hydrochlorothiazide Allergy (Unknown, Verified 08/18/23 14:44) unknown lisinopril Allergy (Unknown, Verified 08/18/23 14:44) unknown olmesartan Allergy (Unknown, Verified 08/18/23 14:44) unknown venom-honey bee Allergy (Unknown, Verified 08/18/23 14:44) unknown Office Meds testosterone cypionate 200 mg/mL intramuscular kit Performing Provider: Sean Landis MD Performing Location: [facility] [place] [facility] Administered by: Devin Dupree LPN on 08/29/23 13:38 Dose Route Admin Location Dispensed Lot Number Expiration Date [facility] Cigar Packer 200 mg IM right deltoid 1 ea [id number] 10/24/25 5760-5673-59 Coding Assessment & Plan Assessment & Plan Orders: Orders AMB Testosterone Injection Patient Supplied Today E29.1 - Testicular hypofunction
== END 2023-08-29 14:31 | disposition home or self-care (01) ==
PROVIDERS: PCP Internal Medicine; Visit Provider Urology
DX: E29.1 Testicular hypofunction (principal)

== ENCOUNTER → 2023-08-29 13:18 | Outpatient (BNVA) | payer OTHER, SELFPAY | PROVIDERS: PCP Internal Medicine; Visit Provider Urology | DX: E29.1 Testicular hypofunction (principal) | CPT/HCPCS: 96372 ==

== ENCOUNTER 2023-09-08 14:11 | Outpatient (AMB) | payer OTHER, SELFPAY ==
[2023-09-08 14:18] VITALS: BP 152/78; PULSE 59; O2SAT 96; BMI 31.4
--- NOTE | 2023-09-08 14:18 | A.OFFVIS_ITS ---
Intake Vital Signs 09/08/23 14:18 Height 5 ft 4 in Weight 182 lb 15.739 oz BMI 31.4 BP 152/78 H Blood Pressure Location Lt brachial Position Sitting Pulse 59 Pulse Source Doppler Pulse Oximetry (%) 96 Oxygen Delivery Method Room Air Intake Visit Reasons: Shortness of breath Intake Note: Patient is here for a sick visit, patient c/o SOB and weezing. patient stated hes having asthma exacerbation at night, the mask for his CPAP is not working. also needs supplies for the nebulizer machine. Allergies hydrochlorothiazide Allergy (Unknown, Verified 09/08/23 14:44) unknown lisinopril Allergy (Unknown, Verified 09/08/23 14:44) unknown olmesartan Allergy (Unknown, Verified 09/08/23 14:44) unknown venom-honey bee Allergy (Unknown, Verified 09/08/23 14:44) unknown Medication List - Last Reconciled 09/08/23 by Celestina Denney MD albuterol sulfate 90 mcg/actuation (Ventolin HFA) 2 puffs PO Q4-6H PRN amlodipine 10 mg PO QAM celecoxib (Celebrex) 200 mg PO BID PRN 30 days chlorthalidone 12.5 mg PO QAM cholecalciferol (vitamin D3) 50 mcg PO QAM diclofenac sodium 1% 2 grams topical QID Flovent HFA 220 mcg/actuation (fluticasone propionate) 2 puffs PO BID NS glipizide ER 2.5 mg PO DAILY hydrocodone-acetaminophen 5-325 mg 1 tab PO Q4-6H PRN ipratropium-albuterol 0.5 mg-3 mg(2.5 mg base)/3 mL mL inhalation Q6H PRN ketotifen fumarate 0.025%(0.035%) 1 drp ophthalmic (eye) BID leg brace (Knee Support Brace) knee support genumed [id number] leg brace (Knee Support Brace) Please reprint genumed rx leg brace (Knee Support Brace) knee support genumed [id number] levocetirizine 5 mg PO BEDTIME losartan 50 mg PO DAILY losartan 100 mg PO QAM metformin 1,000 mg PO BID montelukast 10 mg PO DAILY omeprazole 20 mg PO QAM ropinirole 4 mg PO BEDTIME sildenafil 100 mg PO DAILY PRN 30 days simvastatin 10 mg PO BEDTIME tadalafil 10 mg PO DAILY 90 days testosterone cypionate 160 mg (0.8 mL) IM Q2W 4 weeks Do you need a note to return to daycare/school/sports/work: No HPI Shortness of breath HPI Details THIS 78 YEARS OLD GENTLEMAN WALKED INTO THE OFFICE TODAY COMPLAINING OF INCREASED COUGH AND WHEEZING. HE HAS DIFFICULTY IN SLEEPING AT NIGHT DUE TO COUGH. ALSO DURING THE DAYTIME WHEN HE IS IN HIS APARTMENT HIS SYMPTOMS ARE WORSE WHEN HE GOES OUTDOORS IT GETS LITTLE BETTER. HE IS USING FLOVENT TWICE A DAY AND ENDS UP USING ALBUTEROL QUITE FREQUENTLY. DENIES HAVING HAD ANY RESPIRATORY INFECTION LATELY. FAR CPAP IS CONCERNED HE IS USING IT EVERY NIGHT BUT. HE WAKES UP WITH DRY MOUTH. AND THIS IS HAPPENING SINCE HIS MASK WAS CHANGED TO NASAL MASK. HE DOES USE THE HUMIDIFICATION , BUT IS STILL DOES NOT HELP. PREVIOUSLY HE HAD FULLFACE MASK OF LARGE SIZE, BUT COULD NOT TOLERATE. HE WOULD LIKE TO USE THE AIR FIT F 30 MASK. COUNTS INCLUDE 234 BEDS AT THE [facility] Medical History RLS (restless legs syndrome) COPD (chronic obstructive pulmonary disease) ALLY on CPAP Obesity (BMI 30-39.9) RLS (restless legs syndrome) GERD (gastroesophageal reflux disease) COPD (chronic obstructive pulmonary disease) Carpal tunnel syndrome Lumbar disc herniation Back pain Syncope Arthritis Arrhythmia Asthma DMII (diabetes mellitus, type 2) HTN (hypertension) Surgical History History of cervical spinal surgery History of lumbosacral spine surgery History of cholecystectomy Family History Father Stroke Social History Household Members: Spouse Housing: Apartment Alcohol intake: never Patient Tobacco Use Status: Former Tobacco user Current occupational status: retired Current occupation: rt handed Review of Systems Const All systems reviewed & are unremarkable except as noted in HPI and below Eyes Reports no additional complaints ENT Reports nasal congestion (Chronic intermittent, with minimal postnasal discharge.) Card Denies chest pain, Denies irregular heart rhythm and Denies leg edema Resp Reports as per HPI GI Reports no additional complaints Reports erectile dysfunction Musc Reports back pain and Reports arthralgias (knees ) Skin/Breast Reports system reviewed and no additional complaints, except as documented Neuro Reports no additional complaints Psych Reports no additional complaints Physical Exam Vital Signs: Last Vital Signs Pulse 59 09/08/23 14:18 BP 152/78 H 09/08/23 14:18 Pulse Ox 96 09/08/23 14:18 Oxygen Delivery Method Room Air 09/08/23 14:18 BMI result Body Mass Index 31.4 Const General: healthy appearing (Except for being overweight,, Weight down by 6 LBs .), comfortable, no acute distress, alert and awake Orientation/consciousness: patient oriented x3 HEENT Head: Yes normal to inspection General nose exam: No nasal polyps present and No nasal discharge present Face and sinus: Yes sinuses nontender Mouth: oropharynx normal Throat: Yes posterior oropharynx normal Eyes General: appearance normal, both eyes and all related structures Neck Neck: Yes normal visual inspection, Yes no lymphadenopathy, Yes trachea midline and Yes no JVD Thyroid: Thyroid normal Chest Chest palpation & inspection: normal inspection of the chest, normal palpation of entire chest wall and no tenderness Resp Other: Percussion note is resonant. He has good breath sounds on both sides, slightly distant with prolonged expiratory phase. HAS SCATTERED FEW WHEEZES ON BOTH SIDES. Cardio Palpation: normal PMI Rate: regular rate Rhythm: regular rhythm Heart sounds: no gallops and no murmurs GI Palpation (GI): Soft to palpation, nontender, No hepatosplenomegaly present and no masses Auscultation: normal bowel sounds Back/Spine/Pelvis Thoracic/Lumbar Spine: thoracic and lumbar spine normal to inspection and thoraco-lumbar ROM limited Skin General skin exam: no rashes or lesions noted Neuro General: patient oriented x3 and no focal motor deficits Cranial nerves: Yes CN's II-XII intact bilaterally Extrem General: Yes normal to inspection, Yes no clubbing, cyanosis or edema and Yes no calf tenderness Psych Appearance: grossly normal and well kempt Speech and movement: Normal speech and movement present Assessment & Plan Assessment & Plan (1) COPD (chronic obstructive pulmonary disease): Comment: ASTHMA/COPD ACTING UP, AND HE IS HAVING MORE FREQUENT WHEEZING AND SHORTNESS OF BREATH. TX: LETTER GIVEN TO HIM THAT THE RUGS IN HIS APARTMENT SHOULD BE REMOVED. HE IS ADVISED NOT TO YEAR ANY STRONG PERFUMES AND AVOID ANY SPRAYS IN THE HOUSE. DC FLOVENT AND USE ADVAIR [id number] 2 PUFFS B.I.D. DUONEB UDs TID , May use ALBUTEROL HFA 2 PUFFS Q 6 HRS ONLY PRN . Code(s): J44.9 - Chronic obstructive pulmonary disease, unspecified (2) ALLY on CPAP: Comment: OBSTRUCTIVE SLEEP APNEA IS BEING MANAGED VERY WELL WITH THE CPAP. HAVING SOME ISSUES WITH THE USE OF CPAP. COMPLAINS OF DRY MOUTH, WHICH I THINK IS DUE TO USING THE NASAL MASK.. PRESCRIPTION FOR FULLFACE MASK , AIRFIT F 30 IS SENT TO DME SUPPLIER. STRESSED THAT HE SHOULD USE DISTILLED WATER EVERY NIGHT FOR HUMIDIFICATION , Code(s): G47.33 - Obstructive sleep apnea (adult) (pediatric); Z99.89 - Dependence on other enabling machines and devices (3) Obesity (BMI 30-39.9): Comment: HE IS MODERATELY OBESE, HE IS WELL AWARE OF THIS AND TRIES TO WATCH HIS DIET. HE IS ADVISED TO CONTINUE LOSING 1 OR 2 LB EVERY MONTH. Code(s): E66.9 - Obesity, unspecified Coding Level of Care Code Est Pt Level 3 (59002) Diagnoses COPD (chronic obstructive pulmonary disease) J44.9 ALLY on CPAP G47.33; Z99.89 Obesity (BMI 30-39.9) E66.9
== END 2023-09-08 15:01 | disposition home or self-care (01) ==
PROVIDERS: PCP Internal Medicine; Visit Provider Internal Medicine
DX: J44.9 Chronic obstructive pulmonary disease, unspecified (principal); G47.33 Obstructive sleep apnea (adult) (pediatric); Z99.89 Dependence on other enabling machines and devices; E66.9 Obesity, unspecified
CPT/HCPCS: 99213

== ENCOUNTER → 2023-09-08 14:11 | Outpatient (BNVA) | payer OTHER, SELFPAY | PROVIDERS: PCP Internal Medicine; Visit Provider Internal Medicine | DX: J44.9 Chronic obstructive pulmonary disease, unspecified (principal); G47.33 Obstructive sleep apnea (adult) (pediatric); E66.9 Obesity, unspecified; Z99.89 Dependence on other enabling machines and devices; Z68.31 Body mass index [BMI] 31.0-31.9, adult | CPT/HCPCS: 99212 ==

== ENCOUNTER 2023-10-22 14:12 | Outpatient (AMB) | payer OTHER, SELFPAY ==
--- NOTE | 2023-10-22 14:23 | A.OFFVIS_ITS ---
Intake Vital Signs 10/22/23 14:24 Height 5 ft 4 in Weight 185 lb BMI 31.8 BP 130/60 Blood Pressure Location Lt brachial Position Sitting Pulse 69 Pulse Source Pulse Oximeter Pulse Oximetry (%) 97 Oxygen Delivery Method Room Air Intake Visit Reasons: Asthma Intake Note: pt is here for follow up and cannot receive a new mask until January, he is strugg ling with the usage Taste Tester Required: No Allergies hydrochlorothiazide Allergy (Unknown, Verified 10/22/23 14:46) unknown lisinopril Allergy (Unknown, Verified 10/22/23 14:46) unknown olmesartan Allergy (Unknown, Verified 10/22/23 14:46) unknown venom-honey bee Allergy (Unknown, Verified 10/22/23 14:46) unknown Medication List - Last Reconciled 10/22/23 by Celestina Denney MD albuterol sulfate 90 mcg/actuation (Ventolin HFA) 2 puffs PO Q4-6H PRN amlodipine 10 mg PO QAM celecoxib (Celebrex) 200 mg PO BID PRN 30 days chlorthalidone 12.5 mg PO QAM cholecalciferol (vitamin D3) 50 mcg PO QAM diclofenac sodium 1% 2 grams topical QID fluticasone propion-salmeterol 115-21 mcg/actuation 2 puffs inhalation BID 30 days glipizide ER 2.5 mg PO DAILY hydrocodone-acetaminophen 5-325 mg 1 tab PO Q4-6H PRN ipratropium-albuterol 0.5 mg-3 mg(2.5 mg base)/3 mL mL inhalation Q6H PRN ketotifen fumarate 0.025%(0.035%) 1 drp ophthalmic (eye) BID leg brace (Knee Support Brace) knee support genumed [id number] leg brace (Knee Support Brace) Please reprint genumed rx leg brace (Knee Support Brace) knee support genumed [id number] levocetirizine 5 mg PO BEDTIME losartan 50 mg PO DAILY losartan 100 mg PO QAM metformin 1,000 mg PO BID montelukast 10 mg PO DAILY omeprazole 20 mg PO QAM ropinirole 4 mg PO BEDTIME sildenafil 100 mg PO DAILY PRN 30 days simvastatin 10 mg PO BEDTIME tadalafil 10 mg PO DAILY 90 days testosterone 2 pumps topical DAILY 30 days Do you need a note to return to daycare/school/sports/work: No HPI Asthma HPI Details [age] YEARS GENTLEMAN FOR FOLLOW-UP FOR HIS COPD AND OBSTRUCTIVE SLEEP APNEA. SINCE HIS LAST VISIT, HE IS USING ADVAIR HFA ONE FIFTEEN-TWENTY ONE TWO PUFFS B.I.D., AND HIS BREATHING IS MUCH BETTER. HE HAS ONLY LITTLE BIT COUGH OFF AND ON AND SOME. WHEEZING WHEN HE GOES OUTDOORS FAR CPAP IS CONCERNED HE IS USING IT EVERY NIGHT AND SLEEPS GOOD. HOWEVER HIS MASK, ( CURRENTLY NASAL PILLOWS) HE IS SOMEWHAT TIGHT AND UNCOMFORTABLE. BUT BECAUSE OF HIS INSURANCE ISSUE HE CANNOT GET A NEW MASK FOR THE NEXT FEW MONTHS. HE SLEEPS GOOD AND DENIES ANY. DAYTIME SLEEPINESS [facility] Medical History RLS (restless legs syndrome) COPD (chronic obstructive pulmonary disease) ALLY on CPAP Obesity (BMI 30-39.9) RLS (restless legs syndrome) GERD (gastroesophageal reflux disease) COPD (chronic obstructive pulmonary disease) Carpal tunnel syndrome Lumbar disc herniation Back pain Syncope Arthritis Arrhythmia Asthma DMII (diabetes mellitus, type 2) HTN (hypertension) Surgical History History of cervical spinal surgery History of lumbosacral spine surgery History of cholecystectomy Family History Father Stroke Social History Household Members: Spouse Housing: Apartment Alcohol intake: never Patient Tobacco Use Status: Former Tobacco user Current occupational status: retired Current occupation: rt handed Review of Systems Const All systems reviewed & are unremarkable except as noted in HPI and below Eyes Reports no additional complaints ENT Reports nasal congestion (Chronic intermittent, with minimal postnasal discharge.) Card Denies chest pain, Denies irregular heart rhythm and Denies leg edema Resp Reports as per HPI GI Reports no additional complaints Reports erectile dysfunction Musc Reports back pain and Reports arthralgias (knees ) Skin/Breast Reports system reviewed and no additional complaints, except as documented Neuro Reports no additional complaints Psych Reports no additional complaints Physical Exam Vital Signs: Last Vital Signs Pulse 69 10/22/23 14:24 BP 130/60 10/22/23 14:24 Pulse Ox 97 10/22/23 14:24 Oxygen Delivery Method Room Air 10/22/23 14:24 BMI result Body Mass Index 31.8 Const General: healthy appearing (Except for being overweight,, Weight down by 6 LBs .), comfortable, no acute distress, alert and awake Orientation/consciousness: patient oriented x3 HEENT Head: Yes normal to inspection General nose exam: No nasal polyps present and No nasal discharge present Face and sinus: Yes sinuses nontender Mouth: oropharynx normal Throat: Yes posterior oropharynx normal Eyes General: appearance normal, both eyes and all related structures Neck Neck: Yes normal visual inspection, Yes no lymphadenopathy, Yes trachea midline and Yes no JVD Thyroid: Thyroid normal Chest Chest palpation & inspection: normal inspection of the chest, normal palpation of entire chest wall and no tenderness Resp Other: Percussion note is resonant. He has good breath sounds on both sides, slightly distant with prolonged expiratory phase. HAS SCATTERED FEW WHEEZES ON BOTH SIDES. Cardio Palpation: normal PMI Rate: regular rate Rhythm: regular rhythm Heart sounds: no gallops and no murmurs GI Palpation (GI): Soft to palpation, nontender, No hepatosplenomegaly present and no masses Auscultation: normal bowel sounds Back/Spine/Pelvis Thoracic/Lumbar Spine: thoracic and lumbar spine normal to inspection and thoraco-lumbar ROM limited Skin General skin exam: no rashes or lesions noted Neuro General: patient oriented x3 and no focal motor deficits Cranial nerves: Yes CN's II-XII intact bilaterally Extrem General: Yes normal to inspection, Yes no clubbing, cyanosis or edema and Yes no calf tenderness Psych Appearance: grossly normal and well kempt Speech and movement: Normal speech and movement present Results Reviewed Results Reviewed: COMPLIANCE REPORT FOR THE LAST THIRTY NIGHTS IS REVIEWED. HE HAS USED ONE. AVERAGE USE IT PER NIGHT SEVEN. PRESSURE IS 8 CM. THERE IS VERY LITTLE AIR LEAK, RESIDUAL AHI ONLY 0.1 Assessment & Plan Assessment & Plan (1) Obesity (BMI 30-39.9): Comment: HE IS MODERATELY OBESE, HE IS WELL AWARE OF THIS AND TRIES TO WATCH HIS DIET. HE IS ADVISED TO CONTINUE LOSING 1 OR 2 LB EVERY MONTH. Code(s): E66.9 - Obesity, unspecified Plan: ABOVE (2) ALLY on CPAP: Comment: OBSTRUCTIVE SLEEP APNEA IS BEING MANAGED VERY WELL WITH THE CPAP. HAVING SOME ISSUES WITH THE USE OF CPAP. COMPLAINS OF DRY MOUTH, WHICH I THINK IS DUE TO USING THE NASAL MASK.. PRESCRIPTION FOR FULL FACE MASK , AIRFIT F 30 IS SENT TO DME SUPPLIER, BUT HE IS NOT ELIGIBLE TO GET IT UNTIL EARLY 2023. WE GAVE HIM A FULLFACE MASK FROM THE OFFICE. STRESSED THAT HE SHOULD USE DISTILLED WATER EVERY NIGHT FOR HUMIDIFICATION , Code(s): G47.33 - Obstructive sleep apnea (adult) (pediatric); Z99.89 - Dependence on other enabling machines and devices Plan: ABOVE (3) COPD (chronic obstructive pulmonary disease): Comment: ASTHMA/COPD ACTING UP, AND HE IS HAVING MORE FREQUENT WHEEZING AND SHORTNESS OF BREATH. TX: HE IS DOING BETTER WITH THE USE OF ADVAIR HFA 115-21 TWO PUFFS B.I.D. DUONEB UDs TID PRN, May use ALBUTEROL HFA 2 PUFFS Q 6 HRS ONLY PRN WHEN OUTDOORS. Code(s): J44.9 - Chronic obstructive pulmonary disease, unspecified Plan: ABOVE (4) RLS (restless legs syndrome): Comment: CHRONIC, PROBLEM IN ADDITION TO OBSTRUCTIVE SLEEP APNEA. CONTROLLED WITH THE USE OF ROPINIROLE 4 MG AT BEDTIME Code(s): G25.81 - Restless legs syndrome Plan: HAS ABOVE Coding Level of Care Code Est Pt Level 3 (80816) Diagnoses Obesity (BMI 30-39.9) E66.9 ALLY on CPAP G47.33; Z99.89 COPD (chronic obstructive pulmonary disease) J44.9 RLS (restless legs syndrome) G25.81
[2023-10-22 14:24] VITALS: BP 130/60; PULSE 69; O2SAT 97; BMI 31.8
== END 2023-10-22 14:47 | disposition home or self-care (01) ==
PROVIDERS: PCP Internal Medicine; Visit Provider Internal Medicine
DX: E66.9 Obesity, unspecified (principal); G47.33 Obstructive sleep apnea (adult) (pediatric); Z99.89 Dependence on other enabling machines and devices; J44.9 Chronic obstructive pulmonary disease, unspecified; G25.81 Restless legs syndrome
CPT/HCPCS: 99213

== ENCOUNTER → 2023-10-22 14:12 | Outpatient (BNVA) | payer OTHER, SELFPAY | PROVIDERS: PCP Internal Medicine; Visit Provider Internal Medicine | DX: J44.9 Chronic obstructive pulmonary disease, unspecified (principal); G47.33 Obstructive sleep apnea (adult) (pediatric); G25.81 Restless legs syndrome; E66.9 Obesity, unspecified; Z99.89 Dependence on other enabling machines and devices; Z68.31 Body mass index [BMI] 31.0-31.9, adult | CPT/HCPCS: 99212 ==

== ENCOUNTER 2023-11-15 14:04 | Emergency (ER) | payer OTHER, SELFPAY ==
--- NOTE | ~2023-11-15 | XR_ITS ---
EXAMINATION: XR CHEST CLINICAL INFORMATION: Shortness of breath COMPARISON: None available. TECHNIQUE: Frontal view of the chest was obtained. FINDINGS: No significant abnormality is noted involving the heart, lungs, mediastinum, bony thorax or soft tissues. XR/XR chest 1V IMPRESSION: Unremarkable chest examination.
[2023-11-15 14:09] VITALS: BP 127/61; PULSE 73; RESP 20; TEMP 36.2; O2SAT 96; BMI 30.5
--- NOTE | 2023-11-15 14:32 | ECG_ITS ---
Test Reason : SOB Blood Pressure : / mmHG Vent. Rate : 066 BPM Atrial Rate : 066 BPM P-R Int : 162 ms QRS Dur : 092 ms QT Int : 400 ms P-R-T Axes : 055 007 040 degrees QTc Int : 419 ms Normal sinus rhythm Normal ECG When compared with ECG of 23-JAN-2016 13:41, No significant change was found Referred By: Emelina Givens Electronically Signed By:VERONICA PETERSON MD
--- NOTE | 2023-11-15 14:43 | ED_ITS ---
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 Patient has been struggling with using his CPAP machine due to coughing, but otherwise denies any fever, chills, nausea, vomiting. Patient is already on a course of steroids as well as antibiotics. Related Data Home Medications Medication Instructions Recorded Confirmed amlodipine 10 mg tablet 10 mg PO QAM 08/26/20 11/19/22 cholecalciferol (vitamin D3) 50 50 mcg PO QAM 08/26/20 11/19/22 mcg (2,000 unit) tablet glipizide 2.5 mg tablet, extended 2.5 mg PO DAILY 08/26/20 11/19/22 release 24 hr ipratropium 0.5 mg-albuterol 3 mg ml inhalation Q6H PRN 08/26/20 11/19/22 (2.5 mg base)/3 mL nebulization soln ketotifen fumarate 0.025 % (0.035 1 drp ophthalmic (eye) BID 08/26/20 11/19/22 %) eye drops levocetirizine 5 mg tablet 5 mg PO BEDTIME 08/26/20 11/19/22 losartan 50 mg tablet 50 mg PO DAILY 08/26/20 11/19/22 metformin 1,000 mg tablet 1,000 mg PO BID 08/26/20 11/19/22 montelukast 10 mg tablet 10 mg PO DAILY 08/26/20 11/19/22 omeprazole 20 mg capsule,delayed 20 mg PO QAM 08/26/20 11/19/22 release ropinirole 4 mg tablet 4 mg PO BEDTIME 08/26/20 11/19/22 simvastatin 10 mg tablet 10 mg PO BEDTIME 08/26/20 11/19/22 diclofenac sodium 1 % topical gel 2 g topical QID 01/09/22 11/19/22 losartan 100 mg tablet 100 mg PO QAM 05/15/22 11/19/22 chlorthalidone 25 mg tablet 12.5 mg PO QAM 10/02/22 11/19/22 Previous Rx's Medication Instructions Recorded leg brace (Knee Support Brace) #1 ea 10/17/20 leg brace (Knee Support Brace) #1 ea 10/17/20 leg brace (Knee Support Brace) #1 ea 11/01/20 celecoxib 200 mg capsule (Celebrex) 200 mg PO BID PRN pain 30 days #60 07/19/21 caps hydrocodone 5 mg-acetaminophen 325 1 tab PO Q4-6H PRN pain #5 tabs 12/12/22 mg tablet sildenafil 100 mg tablet 100 mg PO DAILY PRN sexual 05/19/23 activity 30 days #30 tabs tadalafil 10 mg tablet 10 mg PO DAILY sexual activity 90 06/05/23 days #90 tabs albuterol sulfate 90 mcg/actuation 2 puff PO Q4-6H PRN for wheezing 06/18/23 aerosol inhaler (Ventolin HFA) #18 grams fluticasone propionate 115 2 puff inhalation BID ASTHMA/COPD 09/08/23 mcg-salmeterol 21 mcg/actuation 30 days #12 grams HFA inhaler testosterone 2 pump topical DAILY 30 days #75 09/23/23 grams benzonatate 200 mg capsule 200 mg PO BID PRN cough #10 caps 11/15/23 Allergies Allergy/AdvReac Type Severity Reaction Status Date / Time hydrochlorothiazide Allergy Unknown unknown Verified 11/15/23 14:13 lisinopril Allergy Unknown unknown Verified 11/15/23 14:13 olmesartan Allergy Unknown unknown Verified 11/15/23 14:13 venom-honey bee Allergy Unknown unknown Verified 11/15/23 14:13 Review of Systems 2 Review of Systems: Pertinent positives and negatives as stated in [facility] Past Medical History Source: nursing notes reviewed Medical History RLS (restless legs syndrome) COPD (chronic obstructive pulmonary disease) ALLY on CPAP Obesity (BMI 30-39.9) RLS (restless legs syndrome) GERD (gastroesophageal reflux disease) COPD (chronic obstructive pulmonary disease) Carpal tunnel syndrome Lumbar disc herniation Back pain Syncope Arthritis Arrhythmia Asthma DMII (diabetes mellitus, type 2) HTN (hypertension) Surgical History History of cervical spinal surgery History of lumbosacral spine surgery History of cholecystectomy Family History Family History Father Stroke Social History Social History Household Members: Spouse Housing: Apartment Alcohol intake: current Alcohol intake frequency: holidays/special occasions only Patient Tobacco Use Status: Former Tobacco user Smoked in Last 30 Days: No Use of substances other than those prescribed or required for medical reasons: No Advance Directives: No Advance Directives Information Provided: No Current occupational status: retired Current occupation: rt handed Physical Exam 2 Vital Signs: Vital Signs: Last Vital Signs Temp 97.2 F 11/15/23 14:09 Pulse 93 11/15/23 15:28 Resp 22 H 11/15/23 15:28 BP 127/61 11/15/23 14:09 Pulse Ox 96 11/15/23 14:09 O2 Del Method Room Air 11/15/23 14:09 BMI result Body Mass Index 30.5 VITAL SIGNS: Reviewed. GENERAL: Well developed, well nourished, in no acute distress. HEAD: Normocephalic/atraumatic EYES: PERRLA, EOMI EARS: Ext canals without abnormality, TMs non-bulging and non-erythematous NOSE: Nares patent bilateral OROPHARYNX: no oral lesions noted, posterior pharynx clear and non-erythematous without noted tonsillar enlargement/erythema/exudates NECK: Supple, no adenopathy LUNGS: No tachypnea but there is noted expiratory wheeze with decreased breath sounds bilaterally. SpO2<96> CARDIOVASCULAR: Regular rate and rhythm without noted murmurs, no JVD or lower extremity edema. ABDOMEN: Soft, non-tender, non-distended with bowel sounds. MUSCULOSKELETAL: No tenderness, deformities, or effusions noted on gross inspection. EXTREMITIES: No cyanosis, clubbing or edema. SKIN: Inspection of the skin reveals no rashes NEUROLOGIC: Alert and oriented x 4. Strength and sensation to light touch were grossly intact x 4. Medications Administered Discontinued Medications Generic Name Dose Route Start Last Admin Trade Name Freq PRN Reason Stop Dose Admin Albuterol Sulfate 2.5 mg/ 5 mg 11/15/23 15:23 11/15/23 15:27 Albuterol Sulfate 2.5 mg INHALE 11/15/23 15:24 5 mg ONCE ONE Administration Albuterol Sulfate 5 mg/ 0 mg 11/15/23 14:37 11/15/23 14:45 Albuterol/Ipratropium 3 ml INHALE 11/15/23 14:38 5 each ONCE ONE Administration Medical Decision Making Medical Decision Making [facility] Narrative: 78-year-old male with history and clinical presentation most consistent with post viral symptoms after review of viral testing is negative for flu/COVID and daughter reports that all testing at the primary care provider's office was negative as well. Patient appears to be oxygenating well on room air without overly prominent evidence of increased work of breathing or tachypnea. Patient is afebrile. Review of all investigations and hematologic indices demonstrate a mild leukocytosis but this is felt to be secondary to steroid use there is a normocytic anemia without thrombocytopenia. VBG does not demonstrate respiratory acidosis there is minimal hypercapnia-45. Chemistry indices are grossly stable as there is no demonstration of KEMAL and there is no electrolyte abnormalities. There is a noted hyperglycemia but again is likely secondary to current use of steroids but otherwise no evidence to suggest a DKA or HHS. Liver enzymes are without derangements. Once again, viral testing is negative for COVID-19 and influenza. Chest x-ray negative for infiltrate or evidence of venous congestion and otherwise my interpretation is in agreement with radiology's impression. Differential Diagnosis Differential Diagnoses: The differential diagnosis associated with the presentation includes Please see the discussion above Admission/Observation Consideration of admission/observation: Escalation of care including admission/observation considered Please see the discussion above Lab Data [facility] Lab Attestation statement: I reviewed the patient's lab results. Please see the discussion above 11/15/23 14:49 11/15/23 14:49 Labs: Lab Results 11/15/23 11/15/23 Range/Units 14:49 14:53 WBC 11.7 H (4.8-10.8) X10*3/uL RBC 4.39 L (4.60-5.80) X10*6/uL Hgb 13.4 L (14.0-18.0) g/dl Hct 39.9 L (42.0-52.0) % MCV 90.9 (80.0-98.0) fL MCH 30.5 (27.0-33.0) pg MCHC 33.6 (31.0-36.0) g/dl RDW 13.1 (11.0-16.0) % Plt Count 222 (160-400) X10*3/uL MPV 10.1 (9.4-12.4) fL Immature Gran % (Auto) 0.4 (0.0-0.4) % Neut % (Auto) 85.8 H (45-73) % Lymph % (Auto) 4.8 L (20-40) % [place] % (Auto) 8.9 (2-11) % Eos % (Auto) 0.0 (0-4) % Baso % (Auto) 0.1 (0-2) % Lymph # (Auto) 0.6 L (1.2-4.9) X10*3/uL [place] # (Auto) 1.0 (0.1-1.2) X10*3/uL Eos # (Auto) 0.0 (0.0-0.4) X10*3/uL Baso # (Auto) 0.0 (0.0-0.2) X10*3/uL Abs Immat Gran (auto) 0.05 H (0.00-0.03) X10*3/uL Absolute Neuts (auto) 10.1 H (2.0-8.3) x10*3/uL Absolute Nucleated RBC 0.000 (0.0-0.012) X10*3/uL Nucleated RBC % (auto) 0.0 (0.0-0.2) /100WBC VBG pH 7.48 H (7.32-7.43) VBG pCO2 45 mmHg VBG pO2 39 mmHg VBG HCO3 34 H (22-26) mmol/L VBG O2 Saturation 67.0 % VBG Base Excess 9.4 mmol/L Sodium 137 (135-145) mmol/L Potassium 4.5 (3.3-5.1) mmol/L Chloride 97 (96-108) mmol/L Carbon Dioxide 30 H (22-29) mmol/L Anion Gap 15 (12-20) BUN 18 H (9-16) mg/dL Creatinine 1.01 (0.5-1.4) mg/dL Estim Creat Clear Calc 59.6 Estimated GFR > 60 Random Glucose 224 H (60-115) mg/dL Calcium 10.6 H (8.4-10.2) mg/dL Total Bilirubin 0.8 (0.0-1.0) mg/dL AST 39 H (5-37) U/L ALT 39 (0-40) U/L Alkaline Phosphatase 78 (39-117) U/L Total Protein 7.5 (6.5-8.0) g/dL Albumin 3.9 (3.5-5.0) g/dL COVID-19 (BRENDAN) Negative (Negative) COVID-19 Clin Com See Note Influenza Type A (CHRISTIAN) Negative (Negative) Influenza Type B (CHRISTIAN) Negative (Negative) Influenza A & B Note See Note Independent Interpretation I performed an independent interpretation of an: EKG Interpretation: Normal sinus rhythm, HR-66, no STEMI, NV/QRS/QTC is within normal limits. Radiology Impression Discussion of test interpretation with radiology: I have reviewed the radiologist's reading. Radiologist Impression: Please see the discussion above External Record Review External record reviewed: Outpatient record, Prior outpatient labs and Prior outpatient radiology Chronic Conditions Patient?s care impacted by: Diabetes and Hypertension Critical Care Time Critical Care Time Critical Care Time: Yes Total Critical Care Time: 60 Attestation: I personally attest to this time spent taking care of the patient. Discharge Plan Discharge Clinical Impression: Asthma exacerbation Patient Disposition: Home, Self-Care Instructions: Asthma (ED) Additional Instructions: 1. Reanudar todos los medicamentos caseros seg?n lo recetado. 2. Complete geronimo ciclo de esteroides y antibi?ticos. 3. Le he proporcionado lashawn receta para medicamentos para la tos. 4. Fernando un seguimiento con geronimo m?dico de atenci?n primaria el remedios. Regrese a la lamont de emergencias si los s?ntomas empeoran. 1. Resume all home medications as prescribed. 2. Please complete your steroid and antibiotic course. 3. I have provided you with a prescription for cough medication. 4. Please follow-up with your primary care doctor on Friday. Return to the ER for any worsening symptoms. Prescriptions: New benzonatate 200 mg capsule 200 mg PO BID PRN (Reason: cough) Qty: 10 0RF No Action (DME) Knee Support Brace Misc See Rx Instructions .MEDSUPPLY Qty: 1 0RF Rx Instructions: Please reprint genumed rx sildenafil 100 mg tablet 100 mg PO DAILY PRN (Reason: sexual activity) 30 Days Qty: 30 11RF Rx Instructions: administer 30 minutes to 4 hours before activity albuterol sulfate [Ventolin HFA] 90 mcg/actuation HFA aerosol inhaler 2 puff PO Q4-6H PRN (Reason: for wheezing) Qty: 18 3RF testosterone 20.25 mg/1.25 gram (1.62 %) gel in metered-dose pump 2 pump topical DAILY 30 Days Qty: 75 5RF Rx Instructions: apply 2 pumps over max area - alternate shoulders on alternate days hydrocodone-acetaminophen 5-325 mg tablet 1 tab PO Q4-6H PRN (Reason: pain) Qty: 5 0RF Rx Instructions: Partial Fill upon patient request. ipratropium-albuterol 0.5 mg-3 mg(2.5 mg base)/3 mL solution for nebulization inhalation Q6H PRN cholecalciferol (vitamin D3) 50 mcg (2,000 unit) tablet 50 mcg PO QAM levocetirizine 5 mg tablet 5 mg PO BEDTIME ropinirole 4 mg tablet 4 mg PO BEDTIME montelukast 10 mg tablet 10 mg PO DAILY omeprazole 20 mg capsule,delayed release(DR/EC) 20 mg PO QAM metformin 1,000 mg tablet 1,000 mg PO BID amlodipine 10 mg tablet 10 mg PO QAM losartan 50 mg tablet 50 mg PO DAILY ketotifen fumarate 0.025 % (0.035 %) drops 1 drp ophthalmic (eye) BID glipizide 2.5 mg tablet extended release 24hr 2.5 mg PO DAILY simvastatin 10 mg tablet 10 mg PO BEDTIME (DME) Knee Support Brace Misc See Rx Instructions .MEDSUPPLY Qty: 1 0RF Rx Instructions: knee support genumed [id number] (DME) Knee Support Brace Misc See Rx Instructions .MEDSUPPLY Qty: 1 0RF Rx Instructions: knee support genumed [id number] celecoxib [Celebrex] 200 mg capsule 200 mg PO BID PRN (Reason: pain) 30 Days Qty: 60 3RF diclofenac sodium 1 % gel 2 g topical QID Rx Instructions: apply to single elbow, wrist or hand; for hand includes palm/fingers/back of hand losartan 100 mg tablet 100 mg PO QAM chlorthalidone 25 mg tablet 12.5 mg PO QAM tadalafil 10 mg tablet 10 mg PO DAILY 90 Days Qty: 90 1RF fluticasone propion-salmeterol 115-21 mcg/actuation HFA aerosol inhaler 2 puff inhalation BID 30 Days Qty: 12 3RF Referrals: Colton Edward MD [Primary Care Provider] - Print Language: Malawian
[2023-11-15 14:45] VITALS: PULSE 66; RESP 24; O2SAT 95
[2023-11-15] MEDS: Albuterol Sulfate 5 MG, Albuterol/Iprat 2.5/0.5MG 3 ML 3 ML INHALE (14:45)
[2023-11-15 14:55] LABS: MANUAL DIFF FLAG NO
[2023-11-15 14:59] LABS: Venous Blood Gas Refer to POC result
[2023-11-15 14:59] LABS: VBG Base Excess 9.4 mmol/L; VBG HCO3 34 mmol/L (22-26); VBG pCO2 45 mmHg; VBG pH 7.48 (7.32-7.43); VBG pO2 39 mmHg
[2023-11-15 15:04] LABS: Basophils Percent Auto 0.1 % (0-2); Hematocrit 39.9 % (42.0-52.0); Hemoglobin 13.4 g/dl (14.0-18.0); Imm Gran Abs Auto 0.05 X10*3/uL (0.00-0.03); Imm Gran Pct Auto 0.4 % (0.0-0.4); Lymphocytes Absolute Auto 0.6 X10*3/uL (1.2-4.9); Lymphocytes Percent Auto 4.8 % (20-40); Mean Corpuscular HGB Conc 33.6 g/dl (31.0-36.0); Mean Corpuscular Hemoglobin 30.5 pg (27.0-33.0); Mean Corpuscular Volume 90.9 fL (80.0-98.0); Mean Platelet Volume 10.1 fL (9.4-12.4); Monocytes Percent Auto 8.9 % (2-11); Neutrophils Absolute Auto 10.1 x10*3/uL (2.0-8.3); Neutrophils Percent Auto 85.8 % (45-73); Platelet Count 222 X10*3/uL (160-400); Red Blood Count 4.39 X10*6/uL (4.60-5.80); Red Cell Distribution Width 13.1 % (11.0-16.0); White Blood Count 11.7 X10*3/uL (4.8-10.8)
[2023-11-15 15:19] LABS: Alanine Aminotransferase 39 U/L (0-40); Albumin Level 3.9 g/dL (3.5-5.0); Alkaline Phosphatase 78 U/L (39-117); Anion Gap 15 (12-20); Aspartate Amino Transferase 39 U/L (5-37); Bilirubin Total 0.8 mg/dL (0.0-1.0); Blood Urea Nitrogen 18 mg/dL (9-16); Calcium 10.6 mg/dL (8.4-10.2); Carbon Dioxide 30 mmol/L (22-29); Chloride 97 mmol/L (96-108); Creatinine Clr Calc Pharmacy 59.6; Estimated Glomerular Filt Rate > 60; Glucose Random 224 mg/dL (60-115); Potassium 4.5 mmol/L (3.3-5.1); Sodium 137 mmol/L (135-145); Total Protein 7.5 g/dL (6.5-8.0)
[2023-11-15 15:25] LABS: COVID-19 Test Negative (Negative); IDNOW Serial# 08D9AD1C; IDNOW Serial# BCCEAD1C; Influenza A Negative (Negative); Influenza B2 Negative (Negative)
[2023-11-15] MEDS: Albuterol Sulfate 2.5 MG, Albuterol Sulfate (0.083%) 2.5 MG 5 MG INHALE (15:27)
[2023-11-15 15:28] VITALS: PULSE 93; RESP 22; O2SAT 94
[2023-11-15 17:19] VITALS: O2SAT 88
== END 2023-11-15 17:48 | disposition home or self-care (01) ==
PROVIDERS: Student in an Organized Health Care Education/Training Program; Emergency Provider Emergency Medicine; PCP Internal Medicine
DX: J45.901 Unspecified asthma with (acute) exacerbation (principal); R06.02 Shortness of breath; R05.9 Cough, unspecified; Z87.891 Personal history of nicotine dependence; Z11.52 Encounter for screening for COVID-19; Z20.822 Contact with and (suspected) exposure to COVID-19; Z79.899 Other long term (current) drug therapy
CPT/HCPCS: 71045; 80053; 82803; 85025; 87502; 87635; 93005; 94640; 99284; 99285

== ENCOUNTER → 2023-11-15 14:32 | Outpatient (BNV) | payer OTHER, SELFPAY | PROVIDERS: Emergency Provider Emergency Medicine; PCP Internal Medicine; Visit Provider Internal Medicine Cardiovascular Disease | DX: R06.02 Shortness of breath (principal) | CPT/HCPCS: 93010 ==

== ENCOUNTER 2023-12-01 11:02 | Outpatient (REF) | payer OTHER, SELFPAY ==
[2023-12-06 16:13] LABS: Testosterone, Total 188 ng/dL (250-1100)
== END 2023-12-01 11:03 | disposition home or self-care (01) ==
LOC: HO.10HDL 11:02
PROVIDERS: Visit Provider Urology
DX: Z12.5 Encounter for screening for malignant neoplasm of prostate (principal); E29.1 Testicular hypofunction
CPT/HCPCS: 36415; 84153; 84403; 85027

== ENCOUNTER 2024-01-22 13:51 | Outpatient (AMB) | payer OTHER, SELFPAY ==
[2024-01-22 14:12] VITALS: BP 130/68; PULSE 70; O2SAT 95; BMI 30.7
--- NOTE | 2024-01-22 14:12 | MHC.OFFVIS ---
Intake Vital Signs 01/22/24 14:12 Height 5 ft 4 in Weight 179 lb BMI 30.7 BP 130/68 Blood Pressure Location Lt brachial Position Sitting Pulse 70 Pulse Source Pulse Oximeter Pulse Oximetry (%) 95 Oxygen Delivery Method Room Air Intake Visit Reasons: Asthma Intake Note: pt is here for follow up and states he feels good, DME is [facility] for nebulizer script and he needs a refill on duoneb to pharmacy Privacy Specialist Required: No Allergies hydrochlorothiazide Allergy (Unknown, Verified 01/22/24 14:40) unknown lisinopril Allergy (Unknown, Verified 01/22/24 14:40) unknown olmesartan Allergy (Unknown, Verified 01/22/24 14:40) unknown venom-honey bee Allergy (Unknown, Verified 01/22/24 14:40) unknown Medication List - Last Reconciled 01/22/24 by Celestina Denney MD albuterol sulfate 90 mcg/actuation (Ventolin HFA) 2 puffs PO Q4-6H PRN amlodipine 10 mg PO QAM celecoxib (Celebrex) 200 mg PO BID PRN 30 days chlorthalidone 12.5 mg PO QAM cholecalciferol (vitamin D3) 50 mcg PO QAM diclofenac sodium 1% 2 grams topical QID fluticasone propion-salmeterol 115-21 mcg/actuation 2 puffs inhalation BID 30 days glipizide ER 2.5 mg PO DAILY hydrocodone-acetaminophen 5-325 mg 1 tab PO Q4-6H PRN ipratropium-albuterol 0.5 mg-3 mg(2.5 mg base)/3 mL mL inhalation Q6H PRN ketotifen fumarate 0.025%(0.035%) 1 drp ophthalmic (eye) BID leg brace (Knee Support Brace) knee support genumed [id number] leg brace (Knee Support Brace) Please reprint genumed rx leg brace (Knee Support Brace) knee support genumed [id number] levocetirizine 5 mg PO BEDTIME losartan 50 mg PO DAILY losartan 100 mg PO QAM metformin 1,000 mg PO BID montelukast 10 mg PO DAILY omeprazole 20 mg PO QAM ropinirole 4 mg PO BEDTIME sildenafil 100 mg PO DAILY PRN 30 days simvastatin 10 mg PO BEDTIME tadalafil 10 mg PO DAILY 90 days testosterone 2 pumps topical DAILY 30 days Do you need a note to return to daycare/school/sports/work: No HPI Asthma HPI Details 78 years old very pleasant gentleman gentleman is here for follow-up after 6 months, for his obstructive sleep apnea and COPD. He uses CPAP very regularly every night and sleeps well. Has no issue with the CPAP device are the mask. Has no daytime sleepiness. Breathing has been okay, he did have 1 visit to the emergency room in September 2023 acute exacerbation, treated with a course of prednisone and antibiotic and got better. At present he denies the much cough or wheezing. He can walk around without much shortness of breath. He does use Advair HFA twice a day and ProAir 2 puffs Q 6 hours p.r.n.. When at home he uses ipratropium-albuterol solution in the nebulizer about 2 to 3 times a day. He quit smoking more than 25 years ago. [facility] Medical History RLS (restless legs syndrome) COPD (chronic obstructive pulmonary disease) ALLY on CPAP Obesity (BMI 30-39.9) RLS (restless legs syndrome) GERD (gastroesophageal reflux disease) COPD (chronic obstructive pulmonary disease) Carpal tunnel syndrome Lumbar disc herniation Back pain Syncope Arthritis Arrhythmia Asthma DMII (diabetes mellitus, type 2) HTN (hypertension) Surgical History History of cervical spinal surgery History of lumbosacral spine surgery History of cholecystectomy Family History Father Stroke Social History Household Members: Spouse Housing: Apartment Alcohol intake: current Alcohol intake frequency: holidays/special occasions only Patient Tobacco Use Status: Former Tobacco user Current occupational status: retired Current occupation: rt handed Review of Systems Const All systems reviewed & are unremarkable except as noted in HPI and below Eyes Reports no additional complaints ENT Reports nasal congestion (Chronic intermittent, with minimal postnasal discharge.) Card Denies chest pain, Denies irregular heart rhythm and Denies leg edema Resp Reports as per HPI GI Reports no additional complaints Reports erectile dysfunction Musc Reports back pain and Reports arthralgias (knees ) Skin/Breast Reports system reviewed and no additional complaints, except as documented Neuro Reports no additional complaints Psych Reports no additional complaints Physical Exam Vital Signs: Last Vital Signs Pulse 70 01/22/24 14:12 BP 130/68 01/22/24 14:12 Pulse Ox 95 01/22/24 14:12 Oxygen Delivery Method Room Air 01/22/24 14:12 BMI result Body Mass Index 30.7 Const General: healthy appearing (Except for being overweight,, Weight down by 6 LBs .), comfortable, no acute distress, alert and awake Orientation/consciousness: patient oriented x3 HEENT Head: Yes normal to inspection General nose exam: No nasal polyps present and No nasal discharge present Face and sinus: Yes sinuses nontender Mouth: oropharynx normal Throat: Yes posterior oropharynx normal Eyes General: appearance normal, both eyes and all related structures Neck Neck: Yes normal visual inspection, Yes no lymphadenopathy, Yes trachea midline and Yes no JVD Thyroid: Thyroid normal Chest Chest palpation & inspection: normal inspection of the chest, normal palpation of entire chest wall and no tenderness Resp Other: Percussion note is resonant. He has good breath sounds on both sides, slightly distant with prolonged expiratory phase. HAS SCATTERED FEW WHEEZES ON BOTH SIDES. Cardio Palpation: normal PMI Rate: regular rate Rhythm: regular rhythm Heart sounds: no gallops and no murmurs GI Palpation (GI): Soft to palpation, nontender, No hepatosplenomegaly present and no masses Auscultation: normal bowel sounds Back/Spine/Pelvis Thoracic/Lumbar Spine: thoracic and lumbar spine normal to inspection and thoraco-lumbar ROM limited Skin General skin exam: no rashes or lesions noted Neuro General: patient oriented x3 and no focal motor deficits Cranial nerves: Yes CN's II-XII intact bilaterally Extrem General: Yes normal to inspection, Yes no clubbing, cyanosis or edema and Yes no calf tenderness Psych Appearance: grossly normal and well kempt Speech and movement: Normal speech and movement present Results Reviewed Results Reviewed: Compliance report for the last 30 nights is reviewed. He has used 30/30 nights, 100%. Average use per night 7 hours 22 minutes. CPAP setting 8 cm. No significant air leak. Residual AHI 0.1 Assessment & Plan Assessment & Plan (1) Obesity (BMI 30-39.9): Comment: HE IS MODERATELY OBESE, HE IS WELL AWARE OF THIS AND TRIES TO WATCH HIS DIET. Code(s): E66.9 - Obesity, unspecified Plan: He is encouraged to lose,about 10 lb of weight (2) ALLY on CPAP: Comment: OBSTRUCTIVE SLEEP APNEA IS BEING MANAGED VERY WELL WITH THE CPAP. He is using fullface mask which is more comfortable . Code(s): G47.33 - Obstructive sleep apnea (adult) (pediatric); Z99.89 - Dependence on other enabling machines and devices Plan: Commended for good compliance and advised to continue using the CPAP every night (3) COPD (chronic obstructive pulmonary disease): Comment: ASTHMA/COPD CURRENTLY IS WELL CONTROLLED AND STABLE. Code(s): J44.9 - Chronic obstructive pulmonary disease, unspecified Plan: TX: HE IS DOING BETTER WITH THE USE OF ADVAIR HFA 115-21 TWO PUFFS B.I.D. DUONEB UDs TID PRN, May use ALBUTEROL HFA 2 PUFFS Q 6 HRS ONLY PRN WHEN OUTDOORS. (4) RLS (restless legs syndrome): Comment: CHRONIC, PROBLEM IN ADDITION TO OBSTRUCTIVE SLEEP APNEA. CONTROLLED WITH THE USE OF ROPINIROLE 4 MG AT BEDTIME Code(s): G25.81 - Restless legs syndrome Plan: CONT. THE SAME Coding Level of Care Code Est Pt Level 4 (52049) Diagnoses Obesity (BMI 30-39.9) E66.9 ALLY on CPAP G47.33; Z99.89 COPD (chronic obstructive pulmonary disease) J44.9 RLS (restless legs syndrome) G25.81
== END 2024-01-22 14:39 | disposition home or self-care (01) ==
PROVIDERS: PCP Internal Medicine; Visit Provider Internal Medicine
DX: E66.9 Obesity, unspecified (principal); G47.33 Obstructive sleep apnea (adult) (pediatric); Z99.89 Dependence on other enabling machines and devices; J44.9 Chronic obstructive pulmonary disease, unspecified; G25.81 Restless legs syndrome
CPT/HCPCS: 99214

== ENCOUNTER → 2024-01-22 13:51 | Outpatient (BNVA) | payer OTHER, SELFPAY | PROVIDERS: PCP Internal Medicine; Visit Provider Internal Medicine | DX: J44.9 Chronic obstructive pulmonary disease, unspecified (principal); G47.33 Obstructive sleep apnea (adult) (pediatric); G25.81 Restless legs syndrome; E66.9 Obesity, unspecified; Z99.89 Dependence on other enabling machines and devices; Z68.30 Body mass index [BMI] 30.0-30.9, adult | CPT/HCPCS: 99212 ==

== ENCOUNTER 2024-02-03 15:14 | Outpatient (AMB) | payer OTHER, SELFPAY ==
--- NOTE | 2024-02-03 15:34 | A.OFFVIS_ITS ---
Intake Intake Visit Reasons: lab results LVM reminder Intake Note: Patient is present for lab follow up Allergies hydrochlorothiazide Allergy (Unknown, Verified 02/04/24 14:21) unknown lisinopril Allergy (Unknown, Verified 02/04/24 14:21) unknown olmesartan Allergy (Unknown, Verified 02/04/24 14:21) unknown venom-honey bee Allergy (Unknown, Verified 02/04/24 14:21) unknown HPI HPI Comments History of Present Illness Details Jose Ramon is a pleasant Turkmen-speaking male. He is here for the following urologic condition - hypogonadism - erectile dysfunction Turkmen translation provided by qualified medical parasitologist Here for follow-up T is low but timing on lab work was off Continue shot every 2 weeks Lab work should be done 1 week after shot Did discuss use of tadalafil. Continue with 10 mg daily Hypogonadism 1 ml 200 mg per cc testosterone every 2 weeks Given without issue Last measured testosterone 400 04/30/21, PSA 4.1 - 11/13 PSA 4.9 T pending, 05/15 1499 46, 11/14 PSA 4.6 T 508 lab day friday, 05/16 104 P 3.9, 12/17 188 4.6 Erectile dysfunction. Declining response to Viagra demand Switched to daily tadalafil PFSH Medical History RLS (restless legs syndrome) COPD (chronic obstructive pulmonary disease) ALLY on CPAP Obesity (BMI 30-39.9) RLS (restless legs syndrome) GERD (gastroesophageal reflux disease) COPD (chronic obstructive pulmonary disease) Carpal tunnel syndrome Lumbar disc herniation Back pain Syncope Arthritis Arrhythmia Asthma DMII (diabetes mellitus, type 2) HTN (hypertension) Surgical History History of cervical spinal surgery History of lumbosacral spine surgery History of cholecystectomy Family History Father Stroke Social History Household Members: Spouse Housing: Apartment Alcohol intake: current Alcohol intake frequency: holidays/special occasions only Patient Tobacco Use Status: Former Tobacco user Current occupational status: retired Current occupation: rt handed Review of Systems Const Denies chills and Denies fever(s) Card Reports no additional complaints and Denies syncope Resp Denies cough GI Denies abdominal pain and Denies heartburn Reports as per HPI and Denies change in libido Neuro Denies syncope Psych Denies change in libido Endo Denies change in libido Physical Exam Const General: cooperative, healthy appearing, comfortable and no acute distress Orientation/consciousness: patient oriented x3 HEENT Face and sinus: Yes normal facial exam Mouth: moist mucous membranes Neck Neck: Yes normal visual inspection, Yes full ROM and Yes trachea midline Chest Chest palpation & inspection: normal inspection of the chest Resp Effort & Inspection: normal respiratory effort, able to speak in complete sentences and no respiratory distress GI Inspection: Yes normal to inspection Back/Spine/Pelvis Cervical Spine: normal cervical lordosis Thoracic/Lumbar Spine: thoracic and lumbar spine normal to inspection Skin General skin exam: no rashes or lesions noted Neuro General: patient oriented x3, gait normal, tone normal and moves all extremities Extrem General: Yes normal to inspection and Yes capillary refill normal Assessment & Plan Assessment & Plan (1) Erectile dysfunction due to arterial insufficiency: Code(s): N52.01 - Erectile dysfunction due to arterial insufficiency (2) Hypogonadism in male: Code(s): E29.1 - Testicular hypofunction Plan Six-month follow-up labs Orders: Orders Prostate Specific Antigen 6 Months E29.1 - Testicular hypofunction Testosterone, Total 6 Months E29.1 - Testicular hypofunction Complete Blood Count no Diff 6 Months E29.1 - Testicular hypofunction Patient Instructions: Imaging studies, laboratory and physical exam results were discussed and reviewed in detail. No major barriers to patient understanding were identified. An opportunity to ask questions regarding the treatment plan was provided. All questions were answered. The patient expressed understanding and agreement with the above treatment plan. The patient is aware they should contact our office by phone for worsening of their current condition or the appearance of new urologic symptoms. Compliance is encouraged with any medications and followup testing that is ordered. It is a privilege to participate in the urologic care of your patient. If you have any questions or concerns regarding treatment for the above conditions, or other urologic issues, please do not hesitate to contact me. The office tel ephone contact is [phone]. This note is constructed using voice recognition software. While every effort has been made to ensure accuracy triage specialist errors may have been included. Yours sincerely, Dr Sean Landis MD, [place] [facility] - Urology Providers of Expert, Compassionate Care for the Genitourinary System Coding Level of Care Code Est Pt Level 3 (74062) Diagnoses Erectile dysfunction due to arterial insufficiency N52.01 Hypogonadism in male E29.1
== END 2024-02-03 16:04 | disposition home or self-care (01) ==
PROVIDERS: PCP Internal Medicine; Visit Provider Urology
DX: N52.01 Erectile dysfunction due to arterial insufficiency (principal); E29.1 Testicular hypofunction
CPT/HCPCS: 99213

== ENCOUNTER → 2024-02-03 15:14 | Outpatient (BNVA) | payer OTHER, SELFPAY | PROVIDERS: PCP Internal Medicine; Visit Provider Urology | DX: N52.01 Erectile dysfunction due to arterial insufficiency (principal); E29.1 Testicular hypofunction | CPT/HCPCS: 99212 ==

== ENCOUNTER 2024-02-04 14:13 | Outpatient (REF) | payer OTHER, SELFPAY ==
--- NOTE | ~2024-02-04 | XR_ITS ---
EXAMINATION: XR SHOULDER, RIGHT CLINICAL INFORMATION: Pain of right shoulder. COMPARISON: None available. TECHNIQUE: Three views of the right shoulder. FINDINGS: The humeral head is well positioned over the intact glenoid. Glenohumeral joint space is normal: no arthritic deformity, fracture or subluxation. Acromioclavicular joint is normal. The subacromial space is normal. There are no osteophytes projecting from the undersurface of the acromioclavicular joint. No hook-shaped acromion, os acromiale or subacromial enthesophyte. No osseous findings that would predispose to a subacromial impingement disorder. No calcium deposition within rotator cuff tendons. The visualized portion of the right lung is normal. XR/XR shoulder RT min 2V IMPRESSION: Normal right shoulder.
== END 2024-02-04 14:14 | disposition home or self-care (01) ==
LOC: HO.HOSX 14:13
PROVIDERS: PCP Internal Medicine; Visit Provider Physician Assistant
DX: M77.8 Other enthesopathies, not elsewhere classified (principal); M25.511 Pain in right shoulder; M25.512 Pain in left shoulder
CPT/HCPCS: 20610; 73030; 99212; J1020

== ENCOUNTER 2024-02-04 14:13 | Outpatient (AMB) | payer OTHER, SELFPAY ==
--- NOTE | 2024-02-04 14:14 | MHC.OFFVIS ---
Intake Intake Visit Reasons: New Prob- B/l SHOULDER PAIN Intake Note: Jose Ramon is a 78 year old right hand dominant male who presents today for a evaluation of his bilateral shoulder pain, left shoulder was injected on 03/26/23. He states that his last injection in his left shoulder gave him 5-6 months of relief. Patient reports ongoing pain for 2 -3 months. He states that his right shoulder is worse than the left shoulder. No hx of injury. Allergies hydrochlorothiazide Allergy (Unknown, Verified 02/04/24 14:21) unknown lisinopril Allergy (Unknown, Verified 02/04/24 14:21) unknown olmesartan Allergy (Unknown, Verified 02/04/24 14:21) unknown venom-honey bee Allergy (Unknown, Verified 02/04/24 14:21) unknown HPI New Prob- B/l SHOULDER PAIN HPI Details 78-year-old right hand dominant male who presents to the office today for evaluation of bilateral shoulder pain. He states he has sharp pain in his bilateral shoulders for about 3 months now. His right shoulder is worse than the left shoulder. He also reports he is unable to sleep at night due to the pain. He had a left shoulder injection on 03/26/23 which provided him relief for about 6 months. He has not had any injury in the past. [facility] Medical History RLS (restless legs syndrome) COPD (chronic obstructive pulmonary disease) ALLY on CPAP Obesity (BMI 30-39.9) RLS (restless legs syndrome) GERD (gastroesophageal reflux disease) COPD (chronic obstructive pulmonary disease) Carpal tunnel syndrome Lumbar disc herniation Back pain Syncope Arthritis Arrhythmia Asthma DMII (diabetes mellitus, type 2) HTN (hypertension) Surgical History History of cervical spinal surgery History of lumbosacral spine surgery History of cholecystectomy Family History Father Stroke Social History Household Members: Spouse Housing: Apartment Alcohol intake: current Alcohol intake frequency: holidays/special occasions only Patient Tobacco Use Status: Former Tobacco user Current occupational status: retired Current occupation: rt handed Review of Systems Const All systems reviewed & are unremarkable except as noted in HPI and below Physical Exam Const General: cooperative and no acute distress Orientation/consciousness: patient oriented x3 Resp Effort & Inspection: normal respiratory effort and able to speak in complete sentences Cardio Peripheral pulses: Peripheral pulses 2+ throughout Neuro General: patient oriented x3 Extrem Other: Right shoulder normal to inspection. Tenderness over the bicipital groove and along the deltoid region of the shoulder. Forward flexion to 175, external rotation to 90, internal rotation to S1. 5/5 RTC strength. Negative Carreon and cross body abduction. NVI. Office Procedures Joint Injection/Drain Joint Injection/Drain Primary Site: right shoulder Prep: site was prepped using aseptic technique, ethochloride spray was applied and injection warnings given Injected: 40 mg of, DepoMedrol, with 8 mL of, 1% plain lidocaine and in the subcromial space Approach Used: posterolateral Procedure: The patient tolerated the procedure well and there was some relief with the local anesthesia Coding 31366 - Glenohumeral/Tronchanteric Bursa/Intraarticular Procedure code (CPT) selection complete Results Reviewed Results Reviewed: Xrays were obtained in the office today and personally reviewed by me of the right shoulder show adequate joint space. Assessment & Plan Assessment & Plan (1) Right shoulder tendonitis: Code(s): M77.8 - Other enthesopathies, not elsewhere classified Plan We discussed options today which include steroid injection. They did consent to move forward with the right shoulder injection, which was tolerated well. I recommended rest, ice and elevation and OTC anti-inflammatories PRN for discomfort. An MRI of the right shoulder was also ordered in the office today. I will contact him once the scan is complete. We also discussed their diabetes and the effect the steroid can have on thier blood glucose levels; therefore, they will continue to monitor these very closely over the next 72 hours Orders: Orders XR shoulder RT min 2V 02/04/24 M25.511 - Pain in right shoulder Patient Instructions: Scribed for Bryan Beavers PA-C, by Fred Ambriz medical secretary teacher, on 02/04/2024 at 2:15 PM Bryan THAKKAR PA-C, have personally reviewed and agree with the information entered by the scribe. Coding Level of Care Code Est Pt Level 3 (40968) Diagnoses Right shoulder tendonitis M77.8 CPT Codes Coding - Joint 7: 64265 - Glenohumeral/Tronchanteric Bursa/Intraarticular ([id number])
== END 2024-02-10 18:36 | disposition home or self-care (01) ==
PROVIDERS: PCP Internal Medicine; Visit Provider Physician Assistant
DX: M77.8 Other enthesopathies, not elsewhere classified (principal)
CPT/HCPCS: 20610; 99213

== ENCOUNTER 2024-02-19 12:59 | Inpatient (IN) | payer OTHER, SELFPAY ==
--- NOTE | ~2024-02-19 | XR_ITS ---
EXAMINATION: XR CHEST CLINICAL INFORMATION: Dyspnea. COMPARISON: Chest radiograph 11/15/2023. TECHNIQUE: 2 views of the chest were obtained. FINDINGS: Focal radiopacity overlying the lower lungs on the lateral view questioning an early infiltrate. No pleural effusion or pneumothorax. No evidence of pulmonary edema. Normal appearance of the cardiomediastinal silhouette. No acute osseous findings. Visualized upper abdomen is within normal limits. XR/XR chest 2V IMPRESSION: Focal radiopacity overlying the lower lungs on the lateral view questioning an early infiltrate. Correlate clinically and follow-up to ensure resolution.
--- NOTE | 2024-02-19 13:03 | ED_ITS ---
HPI - General Adult General Chief complaint: Dyspnea Stated complaint: Diff Breathing Asthma Time Seen by Provider: 02/19/24 14:11 Source: patient and family ( daughter) Mode of arrival: ambulatory Limitations: no limitations History of Present Illness HPI narrative: 78-year-old male history of asthma, former smoker, sleep apnea uses CPAP at home came in for 4 days of progressive wheezing and difficulty breathing, no fever, no chills, coughing with clear sputum. Patient used home bronchodilator with no relief of his symptoms, patient had similar presentation in the past and was due to acute asthma exacerbation. Patient found to have a temperature of 101.1 degrees. Related Data Home Medications Medication Instructions Recorded Confirmed amlodipine 10 mg tablet 10 mg PO QAM 08/26/20 11/19/22 cholecalciferol (vitamin D3) 50 50 mcg PO QAM 08/26/20 11/19/22 mcg (2,000 unit) tablet glipizide 2.5 mg tablet, extended 2.5 mg PO DAILY 08/26/20 11/19/22 release 24 hr ketotifen fumarate 0.025 % (0.035 1 drp ophthalmic (eye) BID 08/26/20 11/19/22 %) eye drops levocetirizine 5 mg tablet 5 mg PO BEDTIME 08/26/20 11/19/22 losartan 50 mg tablet 50 mg PO DAILY 08/26/20 11/19/22 metformin 1,000 mg tablet 1,000 mg PO BID 08/26/20 11/19/22 montelukast 10 mg tablet 10 mg PO DAILY 08/26/20 11/19/22 omeprazole 20 mg capsule,delayed 20 mg PO QAM 08/26/20 11/19/22 release ropinirole 4 mg tablet 4 mg PO BEDTIME 08/26/20 11/19/22 simvastatin 10 mg tablet 10 mg PO BEDTIME 08/26/20 11/19/22 diclofenac sodium 1 % topical gel 2 g topical QID 01/09/22 11/19/22 losartan 100 mg tablet 100 mg PO QAM 05/15/22 11/19/22 chlorthalidone 25 mg tablet 12.5 mg PO QAM 10/02/22 11/19/22 Previous Rx's Medication Instructions Recorded leg brace (Knee Support Brace) #1 ea 10/17/20 leg brace (Knee Support Brace) #1 ea 10/17/20 leg brace (Knee Support Brace) #1 ea 11/01/20 celecoxib 200 mg capsule (Celebrex) 200 mg PO BID PRN pain 30 days #60 07/19/21 caps hydrocodone 5 mg-acetaminophen 325 1 tab PO Q4-6H PRN pain #5 tabs 12/12/22 mg tablet sildenafil 100 mg tablet 100 mg PO DAILY PRN sexual 05/19/23 activity 30 days #30 tabs tadalafil 10 mg tablet 10 mg PO DAILY sexual activity 90 06/05/23 days #90 tabs albuterol sulfate 90 mcg/actuation 2 puff PO Q4-6H PRN for wheezing 06/18/23 aerosol inhaler (Ventolin HFA) #18 grams fluticasone propionate 115 2 puff inhalation BID ASTHMA/COPD 09/08/23 mcg-salmeterol 21 mcg/actuation 30 days #12 grams HFA inhaler ipratropium 0.5 mg-albuterol 3 mg 3 ml inhalation Q6H PRN COPD/SOB 01/22/24 (2.5 mg base)/3 mL nebulization 30 days #180 mL soln testosterone 2 pump topical DAILY 30 days #75 02/03/24 grams Allergies Allergy/AdvReac Type Severity Reaction Status Date / Time hydrochlorothiazide Allergy Unknown unknown Verified 02/19/24 13:04 lisinopril Allergy Unknown unknown Verified 02/19/24 13:04 olmesartan Allergy Unknown unknown Verified 02/19/24 13:04 venom-honey bee Allergy Unknown unknown Verified 02/19/24 13:04 Review of Systems 2 Review of Systems: All other systems are reviewed and are negative Constitutional: Reports as per HPI and Reports no additional constitutional complaints Eyes: Reports as per HPI and Reports no additional eye complaints Reports system reviewed and no additional complaints, except as documented Cardiovascular: Reports as per HPI and Reports no additional cardiovascular complaints Respiratory: Reports as per HPI and Reports no additional respiratory complaints Gastrointestinal: Reports as per HPI and Reports no additional gastrointestinal complaints Genitourinary: Reports no additional female genitourinary complaints Musculoskeletal: Reports no additional musculoskeletal complaints Skin/Breast: Reports system reviewed and no additional complaints, except as docu Psychiatric: Reports no additional psychiatric complaints Endocrine: Reports no additional endocrine complaints Hematologic/Lymphatic: Reports no additional hematologic/lymphatic complaints Allergic/Immunologic: Reports no additional allergic/immunologic complaints Reports system reviewed and no additional complaints, except as documented and Reports Abnormal speech present COUNT INCLUDES THE [facility] Past Medical History Medical History RLS (restless legs syndrome) COPD (chronic obstructive pulmonary disease) ALLY on CPAP Obesity (BMI 30-39.9) RLS (restless legs syndrome) GERD (gastroesophageal reflux disease) COPD (chronic obstructive pulmonary disease) Carpal tunnel syndrome Lumbar disc herniation Back pain Syncope Arthritis Arrhythmia Asthma DMII (diabetes mellitus, type 2) HTN (hypertension) Surgical History History of cervical spinal surgery History of lumbosacral spine surgery History of cholecystectomy Family History Family History Father Stroke Social History Social History Household Members: Spouse Housing: Apartment Alcohol intake: current Alcohol intake frequency: holidays/special occasions only Patient Tobacco Use Status: Former Tobacco user Smoked in Last 30 Days: No Use of substances other than those prescribed or required for medical reasons: No Advance Directives: No Advance Directives Information Provided: Yes Current occupational status: retired Current occupation: rt handed Physical Exam ED Vital Signs: Vital Signs - 24 hr 02/19/24 13:04 02/19/24 14:35 02/19/24 14:41 Temperature 99.7 F 101.1 F H Pulse Rate 96 88 Respiratory Rate 20 32 H Blood Pressure 125/70 Pulse Oximetry 95 Oxygen Delivery Method Room Air BMI result Body Mass Index 30.9 Vital signs have been reviewed and appear to be correct. Blood pressure elevated. Heart rate normal. Respiratory rate normal. Temperature normal. Oxygen saturation normal. Appearance: Alert. Oriented X3. No acute distress. Head: Normal external exam. Normocephalic. Atraumatic. No Staley signs noted. No raccoon eyes noted Eyes: PERRLA. EOMI. Conjunctiva and sclera normal. Eyelids normal. ENT: TM's Normal. Pharynx normal. Uvula midline. Moist mucous membranes. No trismus noted. No drooling noted. No muffled voice noted. Neck: Normal inspection. Neck supple. FROM. No adenopathy. Thyroid Normal. No meningeal signs. No neck mass noted. CVS: Normal heart rate and rhythm. Heart sound normal. No murmurs noted. Pulses normal throughout. Respiratory: No respiratory distress. Painless inspiration. Breath sounds normal. Diffuse expiratory wheezing with prolonged expiration, Chest nontender. No accessory muscle usage noted or decreased air movement noted. Abdomen: Soft and nontender. Bowel sounds normal in all 4 quadrants. No distention noted. No organomegaly noted. No visible injury noted. Back: No CVA tenderness. Full range of motion noted. Skin: Skin warm and dry. Normal skin color. Normal skin turgor. No rashes/lesions/lacerations noted. Extremities: No lower extremity edema. Extremities exhibit normal range of motion. Extremities nontender. Neuro: Oriented X 3. Cranial nerve exam: II-XII are grossly intact No motor deficit. No sensory deficit. Reflexes normal. Course Course Course Narrative: RME:?78 yo male hx of COPD with asthma, ALLY on CPAP, arrhythmia, GERD, RLS, DMT2, HTN here w/ daughter for eval of increased shortness of breath x2 days. reports assoc chest pain and right arm pain x3 days. hx of asthma- neb machine broke 3 days ago. hx of ALLY on cpap- mask does not fit and is struggling to breath at night. denies falls or trauma. diffuse expiratory wheezes. labs, viral serology, ekg, cxr. will require breathing tx. Full HPI, ROS and PE to be performed by the primary ED provider. Reevaluation(s) Reevaluation #1: Acute asthma exacerbation, pneumonia with SIRS, and positive for the flu with persistent shortness of breath will admit with IV antibiotic of Zithromax and ceftriaxone with bronchodilator and steroids. Time: 15:30 Medications Administered Generic Name Dose Route Start Last Admin Trade Name Freq PRN Reason Stop Dose Admin Ceftriaxone Sodium 1 gm/ 50 mls @ 100 mls/hr 02/19/24 15:07 02/19/24 15:27 Sodium Chloride IV 02/19/24 15:36 100 mls/hr ONCE ONE Administration Sodium Chloride 1,000 mls @ 999 mls/hr 02/19/24 15:09 02/19/24 15:26 Ns IV 02/19/24 16:09 999 mls/hr .Q1H1M ONE Administration Discontinued Medications Generic Name Dose Route Start Last Admin Trade Name Declan PRN Reason Stop Dose Admin Acetaminophen 650 mg 02/19/24 14:53 02/19/24 14:55 Acetaminophen 325 Mg Tablet PO 02/19/24 14:54 650 mg ONCE ONE Administration Albuterol Sulfate 5 mg/ 0 mg 02/19/24 14:38 02/19/24 14:40 Albuterol/Ipratropium 3 ml INHALE 02/19/24 14:39 1 each ONCE ONE Administration Prednisone 60 mg 02/19/24 14:17 02/19/24 14:56 Prednisone 20 Mg Tablet PO 02/19/24 14:18 60 mg ONCE ONE Administration Medical Decision Making Differential Diagnosis Differential Diagnoses: The differential diagnosis associated with the presentation includes ( asthma exacerbation, pneumonia, pneumothorax, pleural effusion, influenza, COVID-19 infection, RSV, electrolyte derangement, severe anemia.) Admission/Observation Consideration of admission/observation: Escalation of care including admission/observation considered Consult Healthcare Provider Management of the patient was discussed with: Hospitalist ( Dr. Acuña) Lab Data MDM Lab Attestation statement: I reviewed the patient's lab results. 02/19/24 13:42 02/19/24 13:42 Labs: Lab Results 02/19/24 Range/Units 13:42 WBC 5.6 (4.8-10.8) X10*3/uL RBC 4.64 (4.60-5.80) X10*6/uL Hgb 14.6 (14.0-18.0) g/dl Hct 43.0 (42.0-52.0) % MCV 92.7 (80.0-98.0) fL MCH 31.5 (27.0-33.0) pg MCHC 34.0 (31.0-36.0) g/dl RDW 13.0 (11.0-16.0) % Plt Count 175 D (160-400) X10*3/uL MPV 9.8 (9.4-12.4) fL Immature Gran % (Auto) 0.4 (0.0-0.4) % Neut % (Auto) 72.9 (45-73) % Lymph % (Auto) 12.3 L (20-40) % Sebastian % (Auto) 10.9 (2-11) % Eos % (Auto) 3.0 (0-4) % Baso % (Auto) 0.5 (0-2) % Lymph # (Auto) 0.7 L (1.2-4.9) X10*3/uL Sebastian # (Auto) 0.6 (0.1-1.2) X10*3/uL Eos # (Auto) 0.2 (0.0-0.4) X10*3/uL Baso # (Auto) 0.0 (0.0-0.2) X10*3/uL Abs Immat Gran (auto) 0.02 (0.00-0.03) X10*3/uL Absolute Neuts (auto) 4.1 (2.0-8.3) x10*3/uL Absolute Nucleated RBC 0.000 (0.0-0.012) X10*3/uL Nucleated RBC % (auto) 0.0 (0.0-0.2) /100WBC Sodium 139 (135-145) mmol/L Potassium 4.3 (3.3-5.1) mmol/L Chloride 96 (96-108) mmol/L Carbon Dioxide 30 H (22-29) mmol/L Anion Gap 17 (12-20) BUN 17 H (9-16) mg/dL Creatinine 1.16 (0.5-1.4) mg/dL Estim Creat Clear Calc 52.2 Estimated GFR > 60 Random Glucose 129 H (60-115) mg/dL Calcium 9.7 D (8.4-10.2) mg/dL Magnesium 1.7 (1.6-2.6) mg/dL Total Bilirubin 0.5 (0.0-1.0) mg/dL AST 27 (5-37) U/L ALT 22 (0-40) U/L Alkaline Phosphatase 77 (39-117) U/L Troponin I High Sens 6.7 (<3.5-35.0) ng/L B-Natriuretic Peptide 17 (<100) pg/mL Total Protein 7.8 (6.5-8.0) g/dL Albumin 4.3 (3.5-5.0) g/dL Influenza Type A (PCR) POSITIVE A (Negative) Influenza Type B (PCR) NEGATIVE (Negative) RSV RNA Qual (PCR) NEGATIVE (Negative) SARS-CoV-2 RNA (RT-PCR) NEGATIVE (Negative) Independent Interpretation I performed an independent interpretation of an: Plain X-Ray (Focal radiopacity overlying the lower lungs on the lateral view questioning an early infiltrate. Correlate clinically and follow-up to ensure resolution. ) Radiology Impression Discussion of test interpretation with radiology: I have reviewed the radiologist's reading. Chronic Conditions Patient?s care impacted by: Other ( obstructive sleep apnea, asthma.) Discharge Plan Discharge Clinical Impression: Acute asthma exacerbation, Influenza A, Pneumonia Patient Disposition: Admitted As Inpatient
[2024-02-19 13:04] VITALS: BP 125/70; PULSE 96; RESP 20; TEMP 37.6; O2SAT 95; BMI 30.9
--- NOTE | 2024-02-19 13:06 | ECG_ITS ---
Test Reason : DYSPNEA Blood Pressure : / mmHG Vent. Rate : 095 BPM Atrial Rate : 095 BPM P-R Int : 158 ms QRS Dur : 090 ms QT Int : 348 ms P-R-T Axes : 064 -17 052 degrees QTc Int : 437 ms Sinus rhythm with Premature atrial complexes Otherwise normal ECG When compared with ECG of 15-NOV-2023 14:39, Premature atrial complexes are now Present Referred By: Milly Kwon Electronically Signed By:Phu New
[2024-02-19 13:49] LABS: MANUAL DIFF FLAG NO
[2024-02-19 13:59] LABS: Basophils Percent Auto 0.5 % (0-2); Eosinophils Absolute Auto 0.2 X10*3/uL (0.0-0.4); Hemoglobin 14.6 g/dl (14.0-18.0); Imm Gran Abs Auto 0.02 X10*3/uL (0.00-0.03); Imm Gran Pct Auto 0.4 % (0.0-0.4); Lymphocytes Absolute Auto 0.7 X10*3/uL (1.2-4.9); Lymphocytes Percent Auto 12.3 % (20-40); Mean Corpuscular Hemoglobin 31.5 pg (27.0-33.0); Mean Corpuscular Volume 92.7 fL (80.0-98.0); Mean Platelet Volume 9.8 fL (9.4-12.4); Monocytes Absolute Auto 0.6 X10*3/uL (0.1-1.2); Monocytes Percent Auto 10.9 % (2-11); Neutrophils Absolute Auto 4.1 x10*3/uL (2.0-8.3); Neutrophils Percent Auto 72.9 % (45-73); Platelet Count 175 X10*3/uL (160-400); Red Blood Count 4.64 X10*6/uL (4.60-5.80); White Blood Count 5.6 X10*3/uL (4.8-10.8)
[2024-02-19 14:07] LABS: Alanine Aminotransferase 22 U/L (0-40); Albumin Level 4.3 g/dL (3.5-5.0); Alkaline Phosphatase 77 U/L (39-117); Anion Gap 17 (12-20); Aspartate Amino Transferase 27 U/L (5-37); Bilirubin Total 0.5 mg/dL (0.0-1.0); Blood Urea Nitrogen 17 mg/dL (9-16); Calcium 9.7 mg/dL (8.4-10.2); Carbon Dioxide 30 mmol/L (22-29); Chloride 96 mmol/L (96-108); Creatinine Clr Calc Pharmacy 52.2; Estimated Glomerular Filt Rate > 60; Glucose Random 129 mg/dL (60-115); Magnesium 1.7 mg/dL (1.6-2.6); Potassium 4.3 mmol/L (3.3-5.1); Sodium 139 mmol/L (135-145); Total Protein 7.8 g/dL (6.5-8.0)
[2024-02-19 14:16] LABS: Troponin-I High Sensitivity 6.7 ng/L (<3.5-35.0)
[2024-02-19 14:34] LABS: Influenza A PCR POSITIVE (Negative); Influenza B PCR NEGATIVE (Negative); Resp Syncy Virus RNA Qual PCR NEGATIVE (Negative); SARS COV2 PCR INHOUSE NEGATIVE (Negative)
[2024-02-19 14:35] VITALS: TEMP 38.4
[2024-02-19] MEDS: Albuterol Sulfate 5 MG, Albuterol/Iprat 2.5/0.5MG 3 ML 3 ML INHALE (14:40)
[2024-02-19 14:41] VITALS: PULSE 88; RESP 32; O2SAT 95
[2024-02-19 14:46] LABS: B Type Natriuretic Peptide 17 pg/mL (<100)
[2024-02-19] MEDS: Acetaminophen 325 MG TABLET 650 MG PO (14:55)
[2024-02-19] MEDS: predniSONE 20 MG TABLET 60 MG PO (14:56)
--- NOTE | 2024-02-19 15:25 | PC.NURSE ---
iv inserted. left AC. 2 sets BC drawn. abx infusing per jan. 93% spo2 on ra
[2024-02-19] MEDS: 0.9 % Sodium Chloride 1,000 ML 999 ML IV (15:26)
[2024-02-19] MEDS: cefTRIAXone sodium 1 GM in 0.9 % Sodium Chloride 50 ML IV (15:27)
--- NOTE | 2024-02-19 15:31 | P.HPHOSP_ITS ---
History of Present Illness Date of Service: 02/19/24 Attending physician on admission: Maurice Acuña Chief Complaint: SOB, cough Pt is a 78-year-old male with a PMH significant for?HTN, HLD, COPD, ALLY on CPAP, [id number] type 2 diabetes, and hypogonadism who presents to the ED with?SOB, PÉREZ, and cough x3-4 days. Patient also has not been sleeping well, been experiencing subjective fever and chills, had generalized weakness and myalgias. Has been using his rescue inhaler more frequently to little effect. Cough has been productive yellow-greenish sputum. Denies nausea, vomiting, abdominal pain. No chest pain/pressure, palpitations. Denies headache. In the ED pt was febrile up to 101.1, tachycardic up to 96, tachypneic up to 32, satting at 95% on RA. Labs were significant for testing positive for flu, otherwise grossly unremarkable. No leukocytosis. Stable H&H. No significant electrolyte abnormalities. Lactic acid 1.1. Renal and hepatic functions WNL. CXR showed focal radiopacity overlying lower lungs question early infiltrate. EKG demonstrated sinus rhythm with PACs but no evidence of ST elevations or depressions. Pt was treated with DuoNebs, acetaminophen, prednisone, IVF, ceftriaxone, and azithromycin. Pt will be admitted to the hospital for treatment and further evaluation of acute influenza infection with superimposed pneumonia with sepsis. Review of Systems 2 Review of Systems: SOB, PÉREZ Productive cough Fever, chills Generalized weakness, myalgias Denies nausea, vomiting, abdominal pain No chest pain/pressure, palpitations [facility] Medical History RLS (restless legs syndrome) COPD (chronic obstructive pulmonary disease) ALLY on CPAP Obesity (BMI 30-39.9) RLS (restless legs syndrome) GERD (gastroesophageal reflux disease) COPD (chronic obstructive pulmonary disease) Carpal tunnel syndrome Lumbar disc herniation Back pain Syncope Arthritis Arrhythmia Asthma DMII (diabetes mellitus, type 2) HTN (hypertension) Family History Father Stroke Surgical History History of cervical spinal surgery History of lumbosacral spine surgery History of cholecystectomy Social History Household Members: Spouse Housing: Apartment Alcohol intake: current Alcohol intake frequency: holidays/special occasions only Patient Tobacco Use Status: Former Tobacco user Smoked in Last 30 Days: No Use of substances other than those prescribed or required for medical reasons: No Advance Directives: No Advance Directives Information Provided: Yes Current occupational status: retired Current occupation: rt handed Meds Allergies Allergy/AdvReac Type Severity Reaction Status Date / Time hydrochlorothiazide Allergy Unknown unknown Verified 02/19/24 13:04 lisinopril Allergy Unknown unknown Verified 02/19/24 13:04 olmesartan Allergy Unknown unknown Verified 02/19/24 13:04 venom-honey bee Allergy Unknown unknown Verified 02/19/24 13:04 Active Medications: Current Medications Ceftriaxone Sodium 1 gm/ (Sodium Chloride) 50 mls @ 100 mls/hr IV ONCE ONE Stop: 02/19/24 15:36 Last Admin: 02/19/24 15:27 Dose: 100 mls/hr Azithromycin 500 mg/ Sodium (Chloride) 250 mls @ 125 mls/hr IV ONCE ONE Stop: 02/19/24 17:06 Sodium Chloride (Ns) 1,000 mls @ 999 mls/hr IV .Q1H1M ONE Stop: 02/19/24 16:09 Last Admin: 02/19/24 15:26 Dose: 999 mls/hr Home Medications Medication Instructions Recorded Confirmed Last Taken Type amlodipine 10 mg tablet 10 mg PO QAM 08/26/20 11/19/22 Unknown History cholecalciferol (vitamin D3) 50 50 mcg PO QAM 08/26/20 11/19/22 Unknown History mcg (2,000 unit) tablet glipizide 2.5 mg tablet, extended 2.5 mg PO DAILY 08/26/20 11/19/22 Unknown History release 24 hr ketotifen fumarate 0.025 % (0.035 1 drp ophthalmic (eye) BID 08/26/20 11/19/22 Unknown History %) eye drops levocetirizine 5 mg tablet 5 mg PO BEDTIME 08/26/20 11/19/22 Unknown History losartan 50 mg tablet 50 mg PO DAILY 08/26/20 11/19/22 Unknown History metformin 1,000 mg tablet 1,000 mg PO BID 08/26/20 11/19/22 Unknown History montelukast 10 mg tablet 10 mg PO DAILY 08/26/20 11/19/22 Unknown History omeprazole 20 mg capsule,delayed 20 mg PO QAM 08/26/20 11/19/22 Unknown History release ropinirole 4 mg tablet 4 mg PO BEDTIME 08/26/20 11/19/22 Unknown History simvastatin 10 mg tablet 10 mg PO BEDTIME 08/26/20 11/19/22 Unknown History diclofenac sodium 1 % topical gel 2 g topical QID 01/09/22 11/19/22 Unknown History losartan 100 mg tablet 100 mg PO QAM 05/15/22 11/19/22 Unknown History chlorthalidone 25 mg tablet 12.5 mg PO QAM 10/02/22 11/19/22 Unknown History melatonin 5 mg tablet 10 mg PO BEDTIME PRN insomnia 02/19/24 Unknown History Physical Exam 2 Vital Signs and Narrative: Vital Signs: Last Vital Signs Temp 101.1 F H 02/19/24 14:35 Pulse 88 02/19/24 14:41 Resp 32 H 02/19/24 14:41 BP 125/70 02/19/24 13:04 Pulse Ox 95 02/19/24 13:04 O2 Del Method Room Air 02/19/24 13:04 BMI result Body Mass Index 30.9 Constitutional: Alert, in no acute distress. Mental Status: Oriented to person, place and time. Eyes: Pupils are equal, round, and reactive to light. Ear, Nose, and Throat: Oropharynx clear, mucous membranes moist. Ears and nose without deformities. Trachea midline. Respiratory: Diffuse whezing and rhonchi bilaterally. Cardiovascular: S1, S2 regular. No murmurs, rubs, or gallops. Gastrointestinal: Abdomen soft, non-tender, non-distended. Normal bowel sounds. Neurologic: Cranial nerves II-XII are grossly intact bilaterally. No focal neurological deficits. Moves all extremities spontaneously. Skin: Warm, dry. Extremities: No edema. Psychiatric: Normal mood and affect. Results Labs 02/19/24 13:42 02/19/24 13:42 Labs: Laboratory Results - last 24 hr 02/19/24 13:42 MCV 92.7 MCH 31.5 MCHC 34.0 RDW 13.0 Plt Count 175 D MPV 9.8 Immature Gran % (Auto) 0.4 Neut % (Auto) 72.9 Lymph % (Auto) 12.3 L [place] % (Auto) 10.9 Eos % (Auto) 3.0 Baso % (Auto) 0.5 Lymph # (Auto) 0.7 L [place] # (Auto) 0.6 Eos # (Auto) 0.2 Baso # (Auto) 0.0 Abs Immat Gran (auto) 0.02 Absolute Neuts (auto) 4.1 Absolute Nucleated RBC 0.000 Nucleated RBC % (auto) 0.0 Anion Gap 17 Estim Creat Clear Calc 52.2 Estimated GFR > 60 Random Glucose 129 H Calcium 9.7 D Magnesium 1.7 Total Bilirubin 0.5 AST 27 ALT 22 Alkaline Phosphatase 77 Troponin I High Sens 6.7 B-Natriuretic Peptide 17 Total Protein 7.8 Albumin 4.3 Influenza Type A (PCR) POSITIVE A Influenza Type B (PCR) NEGATIVE RSV RNA Qual (PCR) NEGATIVE SARS-CoV-2 RNA (RT-PCR) NEGATIVE Imaging Radiologist's Impressions: Impressions Chest X-Ray 02/19/24 13:16 IMPRESSION: Focal radiopacity overlying the lower lungs on the lateral view questioning an early infiltrate. Correlate clinically and follow-up to ensure resolution. Assessment and Plan (1) Influenza A: Status: Acute (2) Pneumonia: Status: Acute Plan Pt is a 78-year-old male with a PMH significant for?HTN, HLD, COPD, ALLY on CPAP, ipv-[id number] type 2 diabetes, and hypogonadism who presents to the ED with?SOB, PÉREZ, and cough x3-4 days. Pt will be admitted to the hospital for treatment and further evaluation of acute influenza infection with superimposed pneumonia with sepsis. Acute iunfluenza infection with superimposed pneumonia with sepsis Patient with SOB, PÉREZ, generalized weakness, myalgias, fever/chills, productive cough times 3-4 days CXR with evidence of developing pneumonia Patient not hypoxic Pt meets sepsis criteria: Fever, tachycardia, tachypnea; lactic acid WNL at 1.1 Patient given IVF and started on broad-spectrum antibiotics in the ED Will treat with ceftriaxone and azithromycin, started 02/19/2024 Will treat with Tamiflu renally dosed, guaifenesin Acute COPD exacerbation In the setting of above Patient with significant wheezing and rhonchi upon auscultation Will treat with DuoNebs, Solu-Medrol Continue home inhalers HTN Continue amlodipine, losartan HLD Statin Non-insulin type 2 diabetes Hold metformin SSI, diabetic diet ALLY CPAP at night Full Code Attending:?Dr. Acuña DVT Prophylaxis: Lovenox Pt will require a hospitalization of at least two nights for treatment of?acute influenza infection with superimposed pneumonia with sepsis. Patient will require hospitalization for treatment with IV antibiotics, IV steroids, breathing treatments, and close monitoring of respiratory status. Quality Stroke Does the patient have a stroke diagnosis?: No VTE Prior VTE?: No VTE Risk Level:: Medical - moderate - high VTE Device Contraindication: Treatment Not Indicated VTE Drug Contraindication: N/A - Med Ordered
[2024-02-19 15:38] LABS: Lactic Acid 1.1 mmol/L (0.5-2.0)
[2024-02-19 16:15] VITALS: BP 123/61; PULSE 92; RESP 16; TEMP 36.9; O2SAT 93
[2024-02-19] MEDS: Azithromycin 500 MG in 0.9 % Sodium Chloride 250 ML 125 MG IV (17:13)
[2024-02-19] MEDS: Oseltamivir Phosphate 75 MG CAPSULE PO (17:14)
[2024-02-19] MEDS: Enoxaparin Sodium 40 MG/0.4 ML SYRINGE SUBCUT (17:15)
[2024-02-19 17:43] LABS: Glucose, Whole Blood 261 mg/dL (60-115)
[2024-02-19] MEDS: Insulin Lispro 100 UNIT/ML 3 ML VIAL SUBCUT ×2 (18:23→22:49)
[2024-02-19] MEDS: Albuterol/Iprat 2.5/0.5MG 3 ML AMPUL.NEB INHALE (20:20)
[2024-02-19 20:21] VITALS: PULSE 92; RESP 16; O2SAT 93
[2024-02-19 22:14] VITALS: BP 122/61; PULSE 75; RESP 17; TEMP 37.2; O2SAT 93
--- NOTE | 2024-02-19 22:15 | MHC.EDTECH ---
emptied pts urinal asked if he needed anything and he said no
[2024-02-19 22:16] LABS: Glucose, Whole Blood 244 mg/dL (60-115)
[2024-02-19] MEDS: guaiFENesin DM 200/20/10 ML 10 ML SYRUP PO (22:48)
[2024-02-19] MEDS: Melatonin 3 MG TABLET 6 MG PO (22:48)
[2024-02-19] MEDS: oxyCODONE HCl Immed Release 5 MG TABLET PO (22:48)
[2024-02-19] MEDS: methylPREDNISolone Sod Succ 40 MG/ML VIAL IVPUSH (22:49)
[2024-02-19] MEDS: Atorvastatin Calcium 10 MG TABLET PO (22:55)
[2024-02-20] VITALS (11 sets, daily range): BP systolic 131–154; BP diastolic 65–76; PULSE 65–86; RESP 15–22; TEMP 36.1–36.6; O2SAT 93–100; BMI 31.1
[2024-02-20] MEDS: 0.9 % Sodium Chloride Flush 3 ML SYRINGE IVFLUSH ×4 (00:07→21:03)
[2024-02-20] MEDS: Omeprazole 20 MG CAPSULE.DR PO (06:27)
[2024-02-20] MEDS: Oseltamivir Phosphate 30 MG CAPSULE PO ×2 (06:27→16:46)
[2024-02-20] MEDS: Fluticasone/Vilanterol 100/25 BLST.W.DEV 1 PUFF INHALE (07:00)
[2024-02-20] MEDS: Albuterol/Iprat 2.5/0.5MG 3 ML AMPUL.NEB INHALE ×4 (07:00→19:05)
[2024-02-20 07:33] LABS: Glucose, Whole Blood 206 mg/dL (60-115)
--- NOTE | 2024-02-20 08:12 | MHC.EDTECH ---
gave pt a pitcher of water
[2024-02-20] MEDS: Insulin Lispro 100 UNIT/ML 3 ML VIAL SUBCUT ×4 (08:22→21:03)
[2024-02-20] MEDS: Montelukast Sodium 10 MG TABLET PO (08:22)
[2024-02-20] MEDS: methylPREDNISolone Sod Succ 40 MG/ML VIAL IVPUSH ×2 (08:22→21:03)
[2024-02-20] MEDS: amLODIPine Besylate 10 MG TABLET PO (08:22)
[2024-02-20] MEDS: Cholecalciferol (Vitamin D3) 25 MCG TABLET 50 MCG PO (08:22)
--- NOTE | 2024-02-20 08:35 | MHC.EDTECH ---
pt ate 75% breakfast
[2024-02-20] MEDS: Celecoxib 200 MG CAPSULE PO (09:16)
--- NOTE | 2024-02-20 09:18 | MHC.EDTECH ---
pt wash washed up teeth brushed with a complete bed change and was standby assistance to the recliner
[2024-02-20 09:37] LABS: Hematocrit 43.6 % (42.0-52.0); Hemoglobin 14.8 g/dl (14.0-18.0); Mean Corpuscular HGB Conc 33.9 g/dl (31.0-36.0); Mean Corpuscular Hemoglobin 31.7 pg (27.0-33.0); Mean Corpuscular Volume 93.4 fL (80.0-98.0); Mean Platelet Volume 10.1 fL (9.4-12.4); Platelet Count 167 X10*3/uL (160-400); Red Blood Count 4.67 X10*6/uL (4.60-5.80); Red Cell Distribution Width 13.2 % (11.0-16.0); White Blood Count 2.8 X10*3/uL (4.8-10.8)
[2024-02-20 09:40] LABS: Anion Gap 17 (12-20); Blood Urea Nitrogen 21 mg/dL (9-16); Calcium 9.6 mg/dL (8.4-10.2); Carbon Dioxide 26 mmol/L (22-29); Chloride 96 mmol/L (96-108); Creatinine Clr Calc Pharmacy 53.6; Estimated Glomerular Filt Rate > 60; Glucose Random 319 mg/dL (60-115); Potassium 4.4 mmol/L (3.3-5.1); Sodium 135 mmol/L (135-145)
[2024-02-20 09:56] LABS: Procalcitonin 0.07 ng/mL
--- NOTE | 2024-02-20 10:37 | HO.PM.IMPN ---
Subjective Subjective Date of Service: 02/20/24 Interval History: This history was taken in German from the patient. no fever since 1435 yesterday coughing, wheezing Review of Systems Review of Systems: Yes all other systems are reviewed and are negative Physical Exam Vital Signs: Vital Signs: Last Vital Signs Temp 97.9 F 02/20/24 04:41 Pulse 73 02/20/24 07:00 Resp 16 02/20/24 07:00 BP 138/65 02/20/24 04:41 Pulse Ox 97 02/20/24 06:54 O2 Del Method Room Air 02/20/24 06:54 BMI result Body Mass Index 30.9 Gen: in no acute distress HEENT: sclera anicteric, moist mucus membranes Neck: supple Lungs: diffuse expiratory wheezing Heart: regular rate and rhythm, no murmurs Abd: soft, non-tender, non-distended Ext: no edema Skin: warm/well-perfused Neuro: alert and oriented x3, no focal findings Psych: appropriate affect Objective Data Active Medications Acetaminophen (Acetaminophen 325 Mg Tablet) 650 mg PO Q6H PRN PRN Reason: Pain, Mild (Pain Scale 1-3) Albuterol Sulfate (Albuterol Sulfate 90 Mcg 8 Gm Inhaler) 2 puff INHALE Q4H PRN PRN Reason: for wheezing Albuterol/Ipratropium (Albuterol/Iprat 2.5/0.5mg 3 Ml Ampul.Neb) 3 ml INHALE RQ4H WHILE AWAKE [facility] Last Admin: 02/20/24 07:00 Dose: 3 ml Documented By: TREVA Amlodipine Besylate (Amlodipine Besylate 10 Mg Tablet) 10 mg PO DAILY [facility]; Protocol Last Admin: 02/20/24 08:22 Dose: 10 mg Documented By: TAMMY Atorvastatin Calcium (Atorvastatin Calcium 10 Mg Tablet) 10 mg PO BEDTIME [facility] Last Admin: 02/19/24 22:55 Dose: 10 mg Documented By: RAMONITA Celecoxib (Celecoxib 200 Mg Capsule) 200 mg PO DAILY [facility] Last Admin: 02/20/24 09:16 Dose: 200 mg Documented By: TAMMY Dextrose (Dextrose 50 % 25 Gm/50 Ml Syringe) 25 gm IVPUSH Q15M PRN; Protocol PRN Reason: per Hypoglycemia Standing Ord. Docusate Sodium (Docusate Sodium 100 Mg Capsule) 100 mg PO DAILY PRN PRN Reason: Constipation Enoxaparin Sodium (Enoxaparin Sodium 40 Mg/0.4 Ml Syringe) 40 mg SUBCUT Q24H [facility] Last Admin: 02/19/24 17:15 Dose: 40 mg Documented By: CHRISTIAN Fluticasone Propionate (Fluticasone Propionate Nasal 16 Gm [place]) 2 spray NOSTRIL-B DAILY [facility] Last Admin: 02/20/24 09:10 Dose: Not Given Documented By: TAMMY Non-Admin Reason: Med Not Available Fluticasone/Vilanterol (Fluticasone/Vilanterol 100/25 Blst.W.Dev) 1 puff INHALE RDAILY [facility] Last Admin: 02/20/24 07:00 Dose: 1 puff Documented By: TREVA Glucose (Glucose Gel 15 Gm Gel..Gram.) 15 gm PO Q15M PRN; Protocol PRN Reason: per Hypoglycemia Standing Ord. Guaifenesin/Dextromethorphan (Guaifenesin Dm 200/20/10 Ml 10 Ml Syrup) 10 ml PO Q6H PRN PRN Reason: Cough Last Admin: 02/19/24 22:48 Dose: 10 ml Documented By: RAMONITA Ceftriaxone Sodium 1 gm/ (Sodium Chloride) 50 mls @ 100 mls/hr IV Q24H [facility] Azithromycin 500 mg/ Sodium (Chloride) 250 mls @ 125 mls/hr IV Q24H [facility] Insulin Human Lispro (Insulin Lispro 100 Unit/Ml 3 Ml Vial) 0 unit SUBCUT QIDACHS [facility]; Protocol Last Admin: 02/20/24 08:22 Dose: 4 unit Documented By: TAMMY Ketotifen Fumarate (Ketotifen Fumarate 0.025% Oph 5 Ml Drpbtl) 1 drop EYE-BOTH BID [facility] Last Admin: 02/20/24 08:34 Dose: Not Given Documented By: TAMMY Non-Admin Reason: See Note Melatonin (Melatonin 3 Mg Tablet) 6 mg PO BEDTIME PRN PRN Reason: Insomnia Last Admin: 02/19/24 22:48 Dose: 6 mg Documented By: RAMONITA Methylprednisolone Sodium Succinate (Methylprednisolone Sod Succ 40 Mg/Ml Vial) 40 mg IVPUSH Q12H [facility] Last Admin: 02/20/24 08:22 Dose: 40 mg Documented By: TAMMY Montelukast Sodium (Montelukast Sodium 10 Mg Tablet) 10 mg PO DAILY [facility] Last Admin: 02/20/24 08:22 Dose: 10 mg Documented By: TAMMY Non-Formulary Medication (Chlorthalidone) 12.5 mg PO QAM [facility] Omeprazole (Omeprazole 20 Mg Capsule.Dr) 20 mg PO DAILY@0630 [facility] Last Admin: 02/20/24 06:27 Dose: 20 mg Documented By: CHUNG Ondansetron HCl (Ondansetron Hcl 4 Mg/2 Ml Vial) 4 mg IVPUSH Q8H PRN PRN Reason: Nausea and Vomiting Oseltamivir Phosphate (Oseltamivir Phosphate 30 Mg Capsule) 30 mg PO Q12H [facility] Stop: 02/24/24 06:01 Last Admin: 02/20/24 06:27 Dose: 30 mg Documented By: CHUNG Oxycodone HCl (Oxycodone Hcl Immed Release 5 Mg Tablet) 5 mg PO QID PRN PRN Reason: Pain, Moderate(Pain Scale 4-6) Last Admin: 02/19/24 22:48 Dose: 5 mg Documented By: RAMONITA Ropinirole HCl (Ropinirole Hcl 2 Mg Tablet) 4 mg PO BEDTIME [facility] Last Admin: 02/19/24 22:55 Dose: Not Given Documented By: RAMONITA Non-Admin Reason: Med Not Available Sodium Chloride (0.9 % Sodium Chloride Flush 3 Ml Syringe) 3 ml IVFLUSH QSHIFT [facility] Last Admin: 02/20/24 08:23 Dose: 3 ml Documented By: TAMMY Vitamin D (Cholecalciferol (Vitamin D3) 25 Mcg Tablet) 50 mcg PO DAILY [facility] Last Admin: 02/20/24 08:22 Dose: 50 mcg Documented By: TAMMY Labs 02/20/24 08:58 02/20/24 08:57 Labs: Laboratory Results - last 24 hr 02/19/24 02/19/24 02/19/24 13:42 15:21 17:37 MCV 92.7 MCH 31.5 MCHC 34.0 RDW 13.0 Plt Count 175 D MPV 9.8 Immature Gran % (Auto) 0.4 Neut % (Auto) 72.9 Lymph % (Auto) 12.3 L [place] % (Auto) 10.9 Eos % (Auto) 3.0 Baso % (Auto) 0.5 Lymph # (Auto) 0.7 L [place] # (Auto) 0.6 Eos # (Auto) 0.2 Baso # (Auto) 0.0 Abs Immat Gran (auto) 0.02 Absolute Neuts (auto) 4.1 Absolute Nucleated RBC 0.000 Nucleated RBC % (auto) 0.0 Anion Gap 17 Estim Creat Clear Calc 52.2 Estimated GFR > 60 POC Glucose 261 H Random Glucose 129 H Lactic Acid 1.1 Calcium 9.7 D Magnesium 1.7 Total Bilirubin 0.5 AST 27 ALT 22 Alkaline Phosphatase 77 Troponin I High Sens 6.7 B-Natriuretic Peptide 17 Total Protein 7.8 Albumin 4.3 Procalcitonin Hold Yellow Top Influenza Type A (PCR) POSITIVE A Influenza Type B (PCR) NEGATIVE RSV RNA Qual (PCR) NEGATIVE SARS-CoV-2 RNA (RT-PCR) NEGATIVE 02/19/24 02/20/24 02/20/24 22:10 07:20 08:57 MCV MCH MCHC RDW Plt Count MPV Immature Gran % (Auto) Neut % (Auto) Lymph % (Auto) [place] % (Auto) Eos % (Auto) Baso % (Auto) Lymph # (Auto) [place] # (Auto) Eos # (Auto) Baso # (Auto) Abs Immat Gran (auto) Absolute Neuts (auto) Absolute Nucleated RBC Nucleated RBC % (auto) Anion Gap 17 Estim Creat Clear Calc 53.6 Estimated GFR > 60 POC Glucose 244 H 206 H Random Glucose 319 H Lactic Acid Calcium 9.6 Magnesium Total Bilirubin AST ALT Alkaline Phosphatase Troponin I High Sens B-Natriuretic Peptide Total Protein Albumin Procalcitonin 0.07 Hold Yellow Top See Note Influenza Type A (PCR) Influenza Type B (PCR) RSV RNA Qual (PCR) SARS-CoV-2 RNA (RT-PCR) 02/20/24 08:58 MCV 93.4 MCH 31.7 MCHC 33.9 RDW 13.2 Plt Count 167 MPV 10.1 Immature Gran % (Auto) Neut % (Auto) Lymph % (Auto) [place] % (Auto) Eos % (Auto) Baso % (Auto) Lymph # (Auto) [place] # (Auto) Eos # (Auto) Baso # (Auto) Abs Immat Gran (auto) Absolute Neuts (auto) Absolute Nucleated RBC 0.000 Nucleated RBC % (auto) 0.0 Anion Gap Estim Creat Clear Calc Estimated GFR POC Glucose Random Glucose Lactic Acid Calcium Magnesium Total Bilirubin AST ALT Alkaline Phosphatase Troponin I High Sens B-Natriuretic Peptide Total Protein Albumin Procalcitonin Hold Yellow Top Influenza Type A (PCR) Influenza Type B (PCR) RSV RNA Qual (PCR) SARS-CoV-2 RNA (RT-PCR) Impressions Chest X-Ray 02/19/24 13:16 IMPRESSION: Focal radiopacity overlying the lower lungs on the lateral view questioning an early infiltrate. Correlate clinically and follow-up to ensure resolution. Assessment and Plan (1) Influenza A: Status: Acute Plan d2 78yo M with HTN, HLD, COPD, ALLY on CPAP, DM2, hypogonadism presenting with 4d of exertional dyspnea + cough, found to have sepsis from influenza with pneumonia sepsis and COPD exacerbation due to acute influenza with superimposed pneumonia - ceftriaxone + azithromcyin 02/18- - oseltamivir 02/18-02/22 - methylprednisolone 02/18- - nebs, controller inhalers HTN - amlodipine, losartan HLD - statin DM2 - brenden-dose lispro ALLY - CPAP at night VTE ppx - LMWH dispo - PT eval In my clinical judgment, the patient requires continued inpatient hospitalization for the following reasons: IV ABX Total time managing care of this patient today: 35 minutes. Quality Stroke Does the patient have a stroke diagnosis?: No VTE Prior VTE?: No VTE Risk Level:: Medical - moderate - high VTE Device Contraindication: Treatment Not Indicated VTE Drug Contraindication: N/A - Med Ordered
[2024-02-20 11:21] LABS: Glucose, Whole Blood 183 mg/dL (60-115)
--- NOTE | 2024-02-20 12:02 | PC.NURSE ---
PT A+O x3, HE DENIES PAIN AT THIS TIME. PT WAS ASSISTED WITH MORNING ADLs BY THEATER USHER. MEDS GIVEN DOCUMENTED.
--- NOTE | 2024-02-20 13:09 | MHC.EDTECH ---
pt ate 100% lunch
--- NOTE | 2024-02-20 13:12 | MHC.EDTECH ---
gave pt a pitcher of water
--- NOTE | 2024-02-20 13:40 | MHC.EDTECH ---
pt wanted to get shave, i assisted him in shaving
[2024-02-20] MEDS: cefTRIAXone sodium 1 GM in 0.9 % Sodium Chloride 50 ML IV (16:07)
[2024-02-20 16:25] LABS: Glucose, Whole Blood 244 mg/dL (60-115)
[2024-02-20] MEDS: Azithromycin 500 MG in 0.9 % Sodium Chloride 250 ML 125 MG IV (16:45)
[2024-02-20] MEDS: Enoxaparin Sodium 40 MG/0.4 ML SYRINGE SUBCUT (16:46)
[2024-02-20 20:36] LABS: Glucose, Whole Blood 232 mg/dL (60-115)
[2024-02-20] MEDS: Acetaminophen 325 MG TABLET 650 MG PO (21:01)
[2024-02-20] MEDS: Atorvastatin Calcium 10 MG TABLET PO (21:02)
[2024-02-20] MEDS: rOPINIRole HCL 2 MG TABLET 4 MG PO (21:02)
[2024-02-21 03:10] VITALS: BP 120/62; PULSE 65; RESP 18; TEMP 36.7; O2SAT 100
[2024-02-21] MEDS: Omeprazole 20 MG CAPSULE.DR PO (05:53)
[2024-02-21] MEDS: Oseltamivir Phosphate 30 MG CAPSULE PO (05:53)
[2024-02-21 07:17] VITALS: BP 146/82; PULSE 58; RESP 16; TEMP 36.2; O2SAT 94
[2024-02-21 07:18] VITALS: PULSE 65; RESP 18; O2SAT 95
[2024-02-21] MEDS: Albuterol/Iprat 2.5/0.5MG 3 ML AMPUL.NEB INHALE ×3 (07:18→15:11)
[2024-02-21] MEDS: Fluticasone/Vilanterol 100/25 BLST.W.DEV 1 PUFF INHALE (07:18)
[2024-02-21 07:37] LABS: Glucose, Whole Blood 236 mg/dL (60-115)
[2024-02-21] MEDS: Montelukast Sodium 10 MG TABLET PO (08:30)
[2024-02-21] MEDS: Insulin Lispro 100 UNIT/ML 3 ML VIAL SUBCUT ×2 (08:30→12:00)
[2024-02-21] MEDS: Celecoxib 200 MG CAPSULE PO (08:30)
[2024-02-21] MEDS: amLODIPine Besylate 10 MG TABLET PO (08:30)
[2024-02-21] MEDS: methylPREDNISolone Sod Succ 40 MG/ML VIAL IVPUSH (08:30)
[2024-02-21] MEDS: Cholecalciferol (Vitamin D3) 25 MCG TABLET 50 MCG PO (08:31)
[2024-02-21] MEDS: 0.9 % Sodium Chloride Flush 3 ML SYRINGE IVFLUSH ×2 (08:31→15:16)
--- NOTE | 2024-02-21 10:16 | PM.DS ---
DS: Providers Provider Date of Service: 02/21/24 Date of admission: 02/19/24 16:17 Date of discharge: 02/21/24 Primary care physician: Colton Edward MD DS: Diagnosis Discharge Diagnosis (1) Influenza A: Status: Acute (2) Pneumonia: Status: Acute (3) Sepsis: Status: Acute (4) Acute exacerbation of chronic obstructive pulmonary disease (COPD): Status: Acute DS: Summary Hospital Course Hospital Course: From the history and physical by the admitting hospitalist, VERONICA Herrera, 02/19/24: Pt is a 78-year-old male with a PMH significant for?HTN, HLD, COPD, ALLY on CPAP, [id number] type 2 diabetes, and hypogonadism who presents to the ED with?SOB, PÉREZ, and cough x3-4 days. Patient also has not been sleeping well, been experiencing subjective fever and chills, had generalized weakness and myalgias. Has been using his rescue inhaler more frequently to little effect. Cough has been productive yellow-greenish sputum. Denies nausea, vomiting, abdominal pain. No chest pain/pressure, palpitations. Denies headache. In the ED pt was febrile up to 101.1, tachycardic up to 96, tachypneic up to 32, satting at 95% on RA. Labs were significant for testing positive for flu, otherwise grossly unremarkable. No leukocytosis. Stable H&H. No significant electrolyte abnormalities. Lactic acid 1.1. Renal and hepatic functions WNL. CXR showed focal radiopacity overlying lower lungs question early infiltrate. EKG demonstrated sinus rhythm with PACs but no evidence of ST elevations or depressions. Pt was treated with DuoNebs, acetaminophen, prednisone, IVF, ceftriaxone, and azithromycin. Pt will be admitted to the hospital for treatment and further evaluation of acute influenza infection with superimposed pneumonia with sepsis. 78yo M with HTN, HLD, COPD, ALLY on CPAP, DM2, and hypogonadism presenting with 4d of exertional dyspnea + cough, admitted for sepsis from influenza with pneumonia. No hypoxia and no organ dysfunction. He was admitted to the medical-surgical floor and improved quickly. He was treated with 2 days of ceftriaxone + azithromycin along with oseltamivir and methylprednisolone. He was discharged on 3 days of cefuroxime + azithromycin + oseltamivir + prednisone. He will need Primary Care follow-up in 1-2 weeks. Time Attestation Discharge Coordination Time (in mins): 40 Quality: Safe Use of Opioids Does Pt have an Active Cancer Diagnosis on the Problem List?: No Quality: Stroke Does the patient have a stroke diagnosis?: No Physical Exam Vital Signs: Vital Signs: Last Vital Signs Temp 97.1 F 02/21/24 07:17 Pulse 65 02/21/24 07:18 Resp 18 02/21/24 07:18 BP 146/82 H 02/21/24 07:17 Pulse Ox 94 02/21/24 07:17 O2 Del Method Room Air 02/21/24 07:17 BMI result Body Mass Index 31.1 Gen: in no acute distress HEENT: sclera anicteric, moist mucus membranes Neck: supple Lungs: scattered end-exp wheezes Heart: regular rate and rhythm, no murmurs Abd: soft, non-tender, non-distended Ext: no edema Skin: warm/well-perfused Neuro: alert and oriented x3, no focal findings Psych: appropriate affect DS: Data Data Completed and Pending Completed studies during hospitalization [Text1]: Laboratory Results WBC 2.8 X10*3/uL (4.8-10.8) L 02/20/24 08:58 RBC 4.67 X10*6/uL (4.60-5.80) 02/20/24 08:58 Hgb 14.8 g/dl (14.0-18.0) 02/20/24 08:58 Hct 43.6 % (42.0-52.0) 02/20/24 08:58 MCV 93.4 fL (80.0-98.0) 02/20/24 08:58 MCH 31.7 pg (27.0-33.0) 02/20/24 08:58 MCHC 33.9 g/dl (31.0-36.0) 02/20/24 08:58 RDW 13.2 % (11.0-16.0) 02/20/24 08:58 Plt Count 167 X10*3/uL (160-400) 02/20/24 08:58 MPV 10.1 fL (9.4-12.4) 02/20/24 08:58 Immature Gran % (Auto) 0.4 % (0.0-0.4) 02/19/24 13:42 Neut % (Auto) 72.9 % (45-73) 02/19/24 13:42 Lymph % (Auto) 12.3 % (20-40) L 02/19/24 13:42 [place] % (Auto) 10.9 % (2-11) 02/19/24 13:42 Eos % (Auto) 3.0 % (0-4) 02/19/24 13:42 Baso % (Auto) 0.5 % (0-2) 02/19/24 13:42 Lymph # (Auto) 0.7 X10*3/uL (1.2-4.9) L 02/19/24 13:42 [place] # (Auto) 0.6 X10*3/uL (0.1-1.2) 02/19/24 13:42 Eos # (Auto) 0.2 X10*3/uL (0.0-0.4) 02/19/24 13:42 Baso # (Auto) 0.0 X10*3/uL (0.0-0.2) 02/19/24 13:42 Abs Immat Gran (auto) 0.02 X10*3/uL (0.00-0.03) 02/19/24 13:42 Absolute Neuts (auto) 4.1 x10*3/uL (2.0-8.3) 02/19/24 13:42 Absolute Nucleated RBC 0.000 X10*3/uL (0.0-0.012) 02/20/24 08:58 Nucleated RBC % (auto) 0.0 /100WBC (0.0-0.2) 02/20/24 08:58 Sodium 135 mmol/L (135-145) 02/20/24 08:57 Potassium 4.4 mmol/L (3.3-5.1) 02/20/24 08:57 Chloride 96 mmol/L (96-108) 02/20/24 08:57 Carbon Dioxide 26 mmol/L (22-29) 02/20/24 08:57 Anion Gap 17 (12-20) 02/20/24 08:57 BUN 21 mg/dL (9-16) H 02/20/24 08:57 Creatinine 1.13 mg/dL (0.5-1.4) 02/20/24 08:57 Estim Creat Clear Calc 53.6 02/20/24 08:57 Estimated GFR > 60 02/20/24 08:57 POC Glucose 236 mg/dL (60-115) H 02/21/24 07:21 Random Glucose 319 mg/dL (60-115) H 02/20/24 08:57 Lactic Acid 1.1 mmol/L (0.5-2.0) 02/19/24 15:21 Calcium 9.6 mg/dL (8.4-10.2) 02/20/24 08:57 Magnesium 1.7 mg/dL (1.6-2.6) 02/19/24 13:42 Total Bilirubin 0.5 mg/dL (0.0-1.0) 02/19/24 13:42 AST 27 U/L (5-37) 02/19/24 13:42 ALT 22 U/L (0-40) 02/19/24 13:42 Alkaline Phosphatase 77 U/L (39-117) 02/19/24 13:42 Troponin I High Sens 6.7 ng/L (<3.5-35.0) 02/19/24 13:42 B-Natriuretic Peptide 17 pg/mL (<100) 02/19/24 13:42 Total Protein 7.8 g/dL (6.5-8.0) 02/19/24 13:42 Albumin 4.3 g/dL (3.5-5.0) 02/19/24 13:42 Procalcitonin 0.07 ng/mL 02/20/24 08:57 Hold Yellow Top See Note 02/20/24 08:57 Influenza Type A (PCR) POSITIVE (Negative) A 02/19/24 13:42 Influenza Type B (PCR) NEGATIVE (Negative) 02/19/24 13:42 RSV RNA Qual (PCR) NEGATIVE (Negative) 02/19/24 13:42 SARS-CoV-2 RNA (RT-PCR) NEGATIVE (Negative) 02/19/24 13:42 Impressions Chest X-Ray 02/19/24 13:16 IMPRESSION: Focal radiopacity overlying the lower lungs on the lateral view questioning an early infiltrate. Correlate clinically and follow-up to ensure resolution. Discharge Plan Discharge Anticipated Discharge Date/Time: 02/21/24 15:12 Patient Disposition: Home, Self-Care Discharge Diagnosis: influenza, pneumonia, asthma exacerbation Referrals: Colton Edward MD [Primary Care Provider] - 1 Week Discharge Medications: New oseltamivir 30 mg Capsule 30 mg PO Q12H Qty: 6 0RF cefuroxime axetil 250 mg tablet 250 mg PO BID Qty: 6 0RF azithromycin 250 mg tablet 250 mg PO DAILY 3 Days Qty: 3 0RF Rx Instructions: start on day 2 of therapy prednisone 20 mg tablet 40 mg PO DAILY Qty: 6 0RF Continued (DME) Knee Support Brace Misc See Rx Instructions .MEDSUPPLY Qty: 1 0RF Rx Instructions: Please reprint genumed rx albuterol sulfate [Ventolin HFA] 90 mcg/actuation HFA aerosol inhaler 2 puff PO Q4-6H PRN (Reason: for wheezing) Qty: 18 3RF testosterone 20.25 mg/1.25 gram (1.62 %) gel in metered-dose pump 2 pump topical DAILY 30 Days Qty: 75 5RF Rx Instructions: apply 2 pumps over max area - alternate shoulders on alternate days acetaminophen 325 mg Tablet 325 mg PO QID PRN (Reason: Pain) oxycodone-acetaminophen 5-325 mg tablet 1 tab PO QID PRN (Reason: Pain) fluticasone propionate 50 mcg/actuation spray,suspension 2 spray intranasal DAILY melatonin 5 mg tablet 10 mg PO BEDTIME celecoxib [Celebrex] 200 mg capsule 200 mg PO DAILY cholecalciferol (vitamin D3) 50 mcg (2,000 unit) tablet 50 mcg PO QAM levocetirizine 5 mg tablet 5 mg PO BEDTIME ropinirole 4 mg tablet 4 mg PO BEDTIME montelukast 10 mg tablet 10 mg PO DAILY omeprazole 20 mg capsule,delayed release(DR/EC) 20 mg PO QAM metformin 1,000 mg tablet 1,000 mg PO BID amlodipine 10 mg tablet 10 mg PO QAM ketotifen fumarate 0.025 % (0.035 %) drops 1 drp ophthalmic (eye) BID glipizide 2.5 mg tablet extended release 24hr 2.5 mg PO DAILY simvastatin 10 mg tablet 10 mg PO BEDTIME (DME) Knee Support Brace Misc See Rx Instructions .MEDSUPPLY Qty: 1 0RF Rx Instructions: knee support genumed [id number] (DME) Knee Support Brace Misc See Rx Instructions .MEDSUPPLY Qty: 1 0RF Rx Instructions: knee support genumed [id number] diclofenac sodium 1 % gel 2 g topical QID Rx Instructions: apply to single elbow, wrist or hand; for hand includes palm/fingers/back of hand chlorthalidone 25 mg tablet 12.5 mg PO QAM fluticasone propion-salmeterol 115-21 mcg/actuation HFA aerosol inhaler 2 puff inhalation BID 30 Days Qty: 12 3RF ipratropium-albuterol 0.5 mg-3 mg(2.5 mg base)/3 mL solution for nebulization 3 ml inhalation Q6H PRN (Reason: COPD/SOB) 30 Days Qty: 180 4RF Discharge Orders: Discharge Order (Routine); Ordered 02/21/24 Ordered By: Jay Jay Santoyo Diet: Diabetic diet Activity on Discharge: As tolerated Stand Alone Forms: Patient Portal Discharge page Care Plan Goals: recovery from infection Health Concerns: influenza, pneumonia, asthma exacerbation Plan of Treatment: for 3 days, take: oseltamivir 30 mg twice daily [anti-flu med] azithromycin 250 mg once daily [antibiotic for pneumonia] cefuroxime 250 mg twice daily [antibiotic for pneumonia] prednisone 40 mg once daily [steroid for asthma] use inhalers/nebulizer for rescue Please follow up with your primary care doctor within 1 week. Return to the hospital if you experience recurrent or worsening symptoms. Assessment: See Discharge Summary.
[2024-02-21 11:19] VITALS: PULSE 60; RESP 18; O2SAT 94
[2024-02-21 11:29] LABS: Glucose, Whole Blood 242 mg/dL (60-115)
--- NOTE | 2024-02-21 13:23 | P.CDIM_ITS ---
PROVIDER RESPONSE TEXT: To clarify, the appropriate diagnosis supported by the clinical indicators: Other (explain): COPD exacerbation QUERY TEXT: PHYSICIAN'S DOCUMENTATION REQUEST Date of Query: 02/20/2024 11:02 AM EDT Patient Name: Jose Ramon Feliciano Admit Date: 02/19/2024 Dear Jay Jay Santoyo, A review of the medical record indicates additional documentation may be needed. Please review below and update the documentation accordingly. Clinical indicators: ED dated 02/18 - Dyspnea, difficulty breathing Asthma Patient with a history of Asthma, former smoker, sleep apnea uses CPAP at home, progressive wheezing. Patient used home bronchodilator with no relief of symptoms. patient had similar presentation in the past and was due to asthma exacerbation. Clinical impression: Acute asthma exacerbation H&P: History of COPD Acute COPD exacerbation due to influenza A with secondary bacterial infection. PMH: Asthma Based on the above, please clarify in the Progress Notes further specificity regarding the type and a cuity of the asthma: Mild intermittent Please specify if with or without acute exacerbation or status asthmaticus Mild persistent Please specify if with or without acute exacerbation or status asthmaticus Moderate persistent Please specify if with or without acute exacerbation or status asthmaticus Severe persistent Please specify if with or without acute exacerbation or status asthmaticus Chronic obstructive asthma and indicate if with acute lower respiratory infection Please specify if with or without acute exacerbation or status asthmaticus Asthma with underlying COPD and indicate if with acute lower respiratory infection Please specify if with or without acute exacerbation or status asthmaticus Other (explain) Clinically unable to determine (explain) Thank you, Jeanna Newby, CCS, CDIS Use of terms such as suspected, likely, concern for, or probable (associated with a specific diagnosi s that is being evaluated, monitored, or treated as if it exists) are acceptable and can be coded in the inpatient se tting, when documented at the time of discharge. Please use your independent medical judgment in providing your response. THIS QUERY IS PART OF THE PERMANENT MEDICAL RECORD
[2024-02-21 15:11] VITALS: PULSE 64; RESP 18; O2SAT 94
[2024-02-21 15:15] VITALS: BP 144/72; PULSE 65; RESP 16; TEMP 36.2; O2SAT 96
[2024-02-21] MEDS: cefTRIAXone sodium 1 GM in 0.9 % Sodium Chloride 50 ML IV (15:16)
[2024-02-21 16:31] LABS: Glucose, Whole Blood 234 mg/dL (60-115)
== END 2024-02-21 17:06 | disposition home or self-care (01) | DRG 871 ==
LOC: HO.ED 15:22 → HO.EDOVER 16:24 → HO.S3 02-20 15:05
PROVIDERS: Hospitalist; Physician Assistant Medical; Admitting Provider Student in an Organized Health Care Education/Training Program; Emergency Provider Emergency Medicine; PCP Internal Medicine; Visit Provider Family Medicine
DX: A41.89 Other specified sepsis (principal); J10.00 Influenza due to other identified influenza virus with unspecified type of pneumonia; J44.0 Chronic obstructive pulmonary disease with (acute) lower respiratory infection; J44.1 Chronic obstructive pulmonary disease with (acute) exacerbation; I10 Essential (primary) hypertension; E78.5 Hyperlipidemia, unspecified; G47.33 Obstructive sleep apnea (adult) (pediatric); Z87.891 Personal history of nicotine dependence; Z79.51 Long term (current) use of inhaled steroids; Z79.84 Long term (current) use of oral hypoglycemic drugs; Z79.899 Other long term (current) drug therapy
CPT/HCPCS: 0241U; 36415; 71046; 80048; 80053; 82947; 83605; 83735; 83880; 84145; 84484; 85025; 85027; 87040; 93005; 94640; 94660; 97161; 99285; J0456; J0696; J1650; J2920

== ENCOUNTER → 2024-02-19 13:06 | Outpatient (BNV) | payer OTHER, SELFPAY | PROVIDERS: Admitting Provider Student in an Organized Health Care Education/Training Program; Emergency Provider Emergency Medicine; PCP Internal Medicine; Visit Provider Internal Medicine Cardiovascular Disease | DX: I49.1 Atrial premature depolarization (principal) | CPT/HCPCS: 93010 ==

== ENCOUNTER → 2024-02-19 16:17 | Outpatient (BNV) | payer OTHER, SELFPAY | PROVIDERS: Admitting Provider Student in an Organized Health Care Education/Training Program; Emergency Provider Emergency Medicine; PCP Internal Medicine; Visit Provider Student in an Organized Health Care Education/Training Program | DX: J44.1 Chronic obstructive pulmonary disease with (acute) exacerbation (principal); A41.9 Sepsis, unspecified organism; J18.9 Pneumonia, unspecified organism; J10.1 Influenza due to other identified influenza virus with other respiratory manifestations | CPT/HCPCS: 99223; 99232; 99239 ==

== ENCOUNTER 2024-04-07 15:42 | Outpatient (REF) | payer OTHER, SELFPAY ==
--- NOTE | ~2024-04-07 | MR_ITS ---
EXAMINATION: MR SHOULDER WITHOUT CONTRAST, RIGHT CLINICAL INFORMATION: Lifting injury x2-3 months. Limited range of motion. COMPARISON: Radiograph dated 02/04/2024. TECHNIQUE: MRI of the shoulder without contrast was performed on a high-field scanner. FINDINGS: ROTATOR CUFF: A near-complete, articular-sided tear of the subscapularis tendon involves the majority of the attachments to the lesser tuberosity, sparing a thin band of bursal-sided fibers that attach to the greater tuberosity via the transverse humeral ligament. This constitutes a floating subscapularis 2 x 2.5 cm in area. An insertional tear of the supraspinatus tendon anteriorly measures 1.1 cm AP and is likely full-thickness. A few articular-sided fibers may remain intact in this region. There is mild to moderate associated supraspinatus tendinosis with retraction of the torn fibers by 0.7 cm. Infraspinatus tendon is intact. There is moderate edema signal throughout the infraspinatus muscle with grade 2 fatty replacement. Mild atrophy and grade 2 fatty replacement are present at the subscapularis and teres minor muscles without associated edema signal. No significant supraspinatus muscle atrophy. BICEPS: The proximal tendon of the long head of the biceps is medially dislocated from the bicipital groove, deep to the remaining intact fibers of the subscapularis tendon. There is likely a small partial tear of the biceps tendon where it exits the shoulder joint. CORACOACROMIAL ARCH: The undersurface of the acromion is hooked with no subacromial spur. Moderate acromioclavicular osteoarthritis. No subacromial subdeltoid bursitis. LABRUM/CAPSULE: There is a focal tear of the glenoid labrum posterosuperiorly between the 10 o'clock position and 9 o'clock position. Labrum is otherwise intact. Mild capsular thickening and edema signal at the axillary pouch. GLENOHUMERAL JOINT/MARROW: Small glenoid osteophytes inferiorly with minimal subchondral edema. Articular cartilage appears relatively well-preserved at the humeral head and glenoid. No fracture or malalignment. No joint effusion. MR/MR shoulder RT wo con IMPRESSION: 1. Near-complete articular-sided tear of the subscapularis tendon involving the majority of the lesser tuberosity insertion. 2. A 1.1 cm (AP) insertional tear of the supraspinatus tendon, likely full-thickness. 3. Generalized edema signal in the infraspinatus muscle with grade 2 fatty replacement. In the absence of a clear infraspinatus tendon tear, this is of uncertain etiology and could be due to denervation change or a muscle strain. No abnormalities are identified at the spinoglenoid notch to indicate impingement of the suprascapular nerve. An occult delaminating tear of the infraspinatus near the myotendinous junction is on the differential, though felt to be less likely as it is not apparent on these images. 4. Medial dislocation of the biceps tendon from the bicipital groove with a small partial tear. 5. Moderate acromioclavicular osteoarthritis. 6. Hooked acromial undersurface. 7. Minimal glenohumeral osteoarthritis with a focal tear of the posterosuperior glenoid labrum. 8. Mild capsular thickening and edema at the axillary pouch. This is not specific but can be seen with adhesive capsulitis provided the appropriate clinical findings.
== END 2024-04-07 15:43 | disposition home or self-care (01) ==
LOC: HO.MRI 15:42
PROVIDERS: PCP Internal Medicine; Visit Provider Physician Assistant
DX: M77.8 Other enthesopathies, not elsewhere classified (principal)
CPT/HCPCS: 73221

== ENCOUNTER 2024-04-26 12:52 | Outpatient (AMB) | payer OTHER, SELFPAY ==
--- NOTE | 2024-04-26 13:01 | MHC.OFFVIS ---
Intake Visit Reasons: F/U MRI review of R shoulder per TM Intake Note: Lisbeth is an 82 year old female who presents today for a post operative appointment s/p left TKA on 01/28/24 Allergies hydrochlorothiazide Allergy (Unknown, Verified 02/19/24 13:04) unknown lisinopril Allergy (Unknown, Verified 02/19/24 13:04) unknown olmesartan Allergy (Unknown, Verified 02/19/24 13:04) unknown venom-honey bee Allergy (Unknown, Verified 02/19/24 13:04) unknown HPI HPI F/U MRI review of R shoulder per TM: Details: 6 weeks of right shoulder pain without injury. MRI shows a supraspinatus and subscapularis tear. He had injections but has not had PT. REPLACED BY [facility] Medical History RLS (restless legs syndrome) COPD (chronic obstructive pulmonary disease) ALLY on CPAP Obesity (BMI 30-39.9) RLS (restless legs syndrome) GERD (gastroesophageal reflux disease) COPD (chronic obstructive pulmonary disease) Carpal tunnel syndrome Lumbar disc herniation Back pain Syncope Arthritis Arrhythmia Asthma DMII (diabetes mellitus, type 2) HTN (hypertension) Surgical History History of cervical spinal surgery History of lumbosacral spine surgery History of cholecystectomy Family History Father Stroke Social History Household Members: Spouse Housing: Apartment Do you presently have visiting nurse or other home services: No ([employer] services at home 2x week) Alcohol intake: current Alcohol intake frequency: holidays/special occasions only Patient Tobacco Use Status: Former Tobacco user Tobacco use type: Cigarette e-Cigarette/Vaping Use: Former Use Current occupational status: retired Current occupation: rt handed Physical Exam Extrem Other: +H/N 4/5 EC Neg lift off Results Reviewed Results Reviewed: I personally reviewed the MR images. IMPRESSION: 1. Near-complete articular-sided tear of the subscapularis tendon involving the majority of the lesser tuberosity insertion. 2. A 1.1 cm (AP) insertional tear of the supraspinatus tendon, likely full-thickness. 3. Generalized edema signal in the infraspinatus muscle with grade 2 fatty replacement. In the absence of a clear infraspinatus tendon tear, this is of uncertain etiology and could be due to denervation change or a muscle strain. No abnormalities are identified at the spinoglenoid notch to indicate impingement of the suprascapular nerve. An occult delaminating tear of the infraspinatus near the myotendinous junction is on the differential, though felt to be less likely as it is not apparent on these images. 4. Medial dislocation of the biceps tendon from the bicipital groove with a small partial tear. 5. Moderate acromioclavicular osteoarthritis. 6. Hooked acromial undersurface. 7. Minimal glenohumeral osteoarthritis with a focal tear of the posterosuperior glenoid labrum. 8. Mild capsular thickening and edema at the axillary pouch. This is not specific but can be seen with adhesive capsulitis provided the appropriate clinical findings. Assessment & Plan Assessment & Plan (1) Rotator cuff tear, right: Code(s): M75.101 - Unspecified rotator cuff tear or rupture of right shoulder, not specified as traumatic Category: Medical Plan: Subscapularis and RTC tear that are incomplete PT and follow up Surgery unlikely 2/2 age, DM and lack of tear severity Orders: Orders PT Evaluation and Treatment Today M75.101 - Unspecified rotator cuff tear or rupture of right shoulder, not specified as traumatic Coding Level of Care Code Est Pt Level 4 (43554) Diagnoses Rotator cuff tear, right M75.101
== END 2024-04-26 13:14 | disposition home or self-care (01) ==
PROVIDERS: PCP Internal Medicine; Visit Provider Orthopaedic Surgery
DX: M75.101 Unspecified rotator cuff tear or rupture of right shoulder, not specified as traumatic (principal)
CPT/HCPCS: 99213

== ENCOUNTER → 2024-04-26 12:52 | Outpatient (BNVA) | payer OTHER, SELFPAY | PROVIDERS: PCP Internal Medicine; Visit Provider Orthopaedic Surgery | DX: M75.101 Unspecified rotator cuff tear or rupture of right shoulder, not specified as traumatic (principal) | CPT/HCPCS: 99212 ==

== ENCOUNTER 2024-07-08 12:25 | Outpatient (AMB) | payer OTHER, SELFPAY ==
--- NOTE | 2024-07-08 12:52 | MHC.OFFVIS ---
Intake Visit Reasons: OV-Right shoulder pain-looking for an injection Intake Note: Jose Ramon is a 79 year old right hand dominant male who presents today for a follow up of his right shoulder. Last injection was administered on 03/26/23. He reports trouble sleeping. He was prescribed physical therapy in the past but he never went. Allergies hydrochlorothiazide Allergy (Unknown, Verified 07/08/24 12:53) unknown lisinopril Allergy (Unknown, Verified 07/08/24 12:53) unknown olmesartan Allergy (Unknown, Verified 07/08/24 12:53) unknown venom-honey bee Allergy (Unknown, Verified 07/08/24 12:53) unknown Medication List - Last Reconciled 07/08/24 by Geneva Sexton RN acetaminophen 325 mg PO QID PRN albuterol sulfate 90 mcg/actuation (Ventolin HFA) 2 puffs PO Q4-6H PRN amlodipine 10 mg PO QAM azithromycin 250 mg PO DAILY 3 days cefuroxime axetil 250 mg PO BID celecoxib (Celebrex) 200 mg PO DAILY chlorthalidone 12.5 mg PO QAM cholecalciferol (vitamin D3) 50 mcg PO QAM diclofenac sodium 1% 2 grams topical QID fluticasone propion-salmeterol 115-21 mcg/actuation 2 puffs inhalation BID 30 days fluticasone propionate 50 mcg/actuation 2 sprays intranasal DAILY glipizide ER 2.5 mg PO DAILY ipratropium-albuterol 0.5 mg-3 mg(2.5 mg base)/3 mL 3 mL inhalation Q6H PRN 30 days ketotifen fumarate 0.025%(0.035%) 1 drp ophthalmic (eye) BID leg brace (Knee Support Brace) knee support genumed [id number] leg brace (Knee Support Brace) Please reprint genumed rx leg brace (Knee Support Brace) knee support genumed [id number] levocetirizine 5 mg PO BEDTIME melatonin 10 mg PO BEDTIME metformin 1,000 mg PO BID montelukast 10 mg PO DAILY omeprazole 20 mg PO QAM oseltamivir 30 mg PO Q12H oxycodone-acetaminophen 5-325 mg 1 tab PO QID PRN prednisone 40 mg (2 x 20 mg) PO DAILY ropinirole 4 mg PO BEDTIME sildenafil 100 mg PO DAILY PRN 30 days simvastatin 10 mg PO BEDTIME tadalafil 10 mg PO DAILY 90 days testosterone 2 pumps topical DAILY 30 days HPI HPI OV-Right shoulder pain-looking for an injection: Details: He had an injection over a year ago in his right shoulder. Now he comes in complaining of pain. He has trouble sleeping. Never did go to physical therapy. [facility] Medical History RLS (restless legs syndrome) COPD (chronic obstructive pulmonary disease) ALLY on CPAP Obesity (BMI 30-39.9) RLS (restless legs syndrome) GERD (gastroesophageal reflux disease) COPD (chronic obstructive pulmonary disease) Carpal tunnel syndrome Lumbar disc herniation Back pain Syncope Arthritis Arrhythmia Asthma DMII (diabetes mellitus, type 2) HTN (hypertension) Surgical History History of cervical spinal surgery History of lumbosacral spine surgery History of cholecystectomy Family History Father Stroke Social History Household Members: Spouse Housing: Apartment Do you presently have visiting nurse or other home services: No ([employer] services at home 2x week) Alcohol intake: current Alcohol intake frequency: holidays/special occasions only Patient Tobacco Use Status: Former Tobacco user Tobacco use type: Cigarette e-Cigarette/Vaping Use: Former Use Current occupational status: retired Current occupation: rt handed Physical Exam Extrem Other: +H/N 4/5 EC Neg lift off Office Procedures Joint Injection/Aspiration Joint Injection/Aspiration Details: Injected 1 mL of Decadron and 3 mL 1% lidocaine and 3 mL of 0.25% Marcaine. Site was prepped using aseptic technique. Patient tolerated the procedure well. Primary Site: right shoulder Approach Used: posterolateral Coding 81222 - Large joint Procedure code (CPT) selection complete Assessment & Plan Assessment & Plan (1) Rotator cuff tear, right: Code(s): M75.101 - Unspecified rotator cuff tear or rupture of right shoulder, not specified as traumatic Category: Medical Plan: This is a 79-year-old gentleman with a likely rotator cuff tear on the right. He is not interested in surgery and not sure is a surgical candidate. He benefits from injections. Physical therapy is an option but he would need to express some interest in it. Coding Level of Care Code Est Pt Level 3 (51858) Diagnoses Rotator cuff tear, right M75.101 CPT Codes Coding - 20556 Large joint: 95946 - Large joint ([id number])
== END 2024-07-08 13:17 | disposition home or self-care (01) ==
PROVIDERS: PCP Internal Medicine; Visit Provider Orthopaedic Surgery
DX: M75.101 Unspecified rotator cuff tear or rupture of right shoulder, not specified as traumatic (principal)
CPT/HCPCS: 20610; 99213

== ENCOUNTER → 2024-07-08 12:25 | Outpatient (BNVA) | payer OTHER, SELFPAY | PROVIDERS: PCP Internal Medicine; Visit Provider Orthopaedic Surgery | DX: M75.101 Unspecified rotator cuff tear or rupture of right shoulder, not specified as traumatic (principal) | CPT/HCPCS: 20610; 99212; J0665; J1100 ==

== ENCOUNTER 2024-07-22 11:08 | Outpatient (AMB) | payer OTHER, SELFPAY ==
[2024-07-22 11:33] VITALS: BP 140/68; PULSE 66; O2SAT 96; BMI 31.1
--- NOTE | 2024-07-22 11:33 | MHC.OFFVIS ---
Vital Signs 07/22/24 11:33 Height 5 ft 4 in Weight 181 lb BMI 31.1 BP 140/68 H Blood Pressure Location Lt brachial Position Sitting Pulse 66 Pulse Source Pulse Oximeter Pulse Oximetry (%) 96 Oxygen Delivery Method Room Air Intake Visit Reasons: asthma Intake Note: pt is here for follow up and was in hospital in January for 3 days for copd, and is feeling okay now, using cpap at night Wafer Cleaner Required: No Allergies hydrochlorothiazide Allergy (Unknown, Verified 07/22/24 11:54) unknown lisinopril Allergy (Unknown, Verified 07/22/24 11:54) unknown olmesartan Allergy (Unknown, Verified 07/22/24 11:54) unknown venom-honey bee Allergy (Unknown, Verified 07/22/24 11:54) unknown Medication List - Last Reconciled 07/22/24 by Celestina Denney MD acetaminophen 325 mg PO QID PRN albuterol sulfate 90 mcg/actuation (Ventolin HFA) 2 puffs PO Q4-6H PRN amlodipine 10 mg PO QAM celecoxib (Celebrex) 200 mg PO DAILY chlorthalidone 12.5 mg PO QAM cholecalciferol (vitamin D3) 50 mcg PO QAM diclofenac sodium 1% 2 grams topical QID fluticasone propion-salmeterol 115-21 mcg/actuation 2 puffs inhalation BID 30 days fluticasone propionate 50 mcg/actuation 2 sprays intranasal DAILY glipizide ER 2.5 mg PO DAILY ipratropium-albuterol 0.5 mg-3 mg(2.5 mg base)/3 mL 3 mL inhalation Q6H PRN 30 days ketotifen fumarate 0.025%(0.035%) 1 drp ophthalmic (eye) BID leg brace (Knee Support Brace) knee support genumed [id number] leg brace (Knee Support Brace) Please reprint genumed rx leg brace (Knee Support Brace) knee support genumed [id number] levocetirizine 5 mg PO BEDTIME melatonin 10 mg PO BEDTIME metformin 1,000 mg PO BID montelukast 10 mg PO DAILY omeprazole 20 mg PO QAM oseltamivir 30 mg PO Q12H oxycodone-acetaminophen 5-325 mg 1 tab PO QID PRN ropinirole 4 mg PO BEDTIME sildenafil 100 mg PO DAILY PRN 30 days simvastatin 10 mg PO BEDTIME tadalafil 10 mg PO DAILY 90 days testosterone 2 pumps topical DAILY 30 days Do you need a note to return to daycare/school/sports/work: No HPI HPI asthma: Details: Jose Ramon is 79 years old pleasant gentleman, moderately obese and with diagnosis of obstructive sleep apnea. He also has chronic allergic rhinitis, and chronic obstructive pulmonary disease. He is coming for his routine follow-up after 6 mon.ths In January 2024 he was hospitalized for a few days for treatment of acute exacerbation of COPD. He claims to be doing okay since then. He still has mild intermittent nasal congestion and intermittent bouts of cough, and he gets short of breath on walking up hill or climbing stairs. [facility] Medical History RLS (restless legs syndrome) COPD (chronic obstructive pulmonary disease) ALLY on CPAP Obesity (BMI 30-39.9) RLS (restless legs syndrome) GERD (gastroesophageal reflux disease) COPD (chronic obstructive pulmonary disease) Carpal tunnel syndrome Lumbar disc herniation Back pain Syncope Arthritis Arrhythmia Asthma DMII (diabetes mellitus, type 2) HTN (hypertension) Surgical History History of cervical spinal surgery History of lumbosacral spine surgery History of cholecystectomy Family History Father Stroke Social History Household Members: Spouse Housing: Apartment Do you presently have visiting nurse or other home services: No (MANUFACTURING OPERATIONS MANAGER services at home 2x week) Alcohol intake: current Alcohol intake frequency: holidays/special occasions only Patient Tobacco Use Status: Former Tobacco user Tobacco use type: Cigarette e-Cigarette/Vaping Use: Former Use Current occupational status: retired Current occupation: rt handed Review of Systems Const All systems reviewed & are unremarkable except as noted in HPI and below Eyes Reports no additional complaints ENT Reports nasal congestion (Chronic intermittent, with minimal postnasal discharge.) Card Denies chest pain, Denies irregular heart rhythm and Denies leg edema Resp Reports as per HPI GI Reports no additional complaints Reports erectile dysfunction Musc Reports back pain and Reports arthralgias (knees ) Skin/Breast Reports system reviewed and no additional complaints, except as documented Neuro Reports no additional complaints Psych Reports no additional complaints Physical Exam Vital Signs: Last Vital Signs Pulse 66 07/22/24 11:33 BP 140/68 H 07/22/24 11:33 Pulse Ox 96 07/22/24 11:33 Oxygen Delivery Method Room Air 07/22/24 11:33 BMI result Body Mass Index 31.1 Const General: healthy appearing (Except for being overweight,, Weight down by 6 LBs .), comfortable, no acute distress, alert and awake Orientation/consciousness: patient oriented x3 HEENT Head: Yes normal to inspection General nose exam: No nasal polyps present and No nasal discharge present Face and sinus: Yes sinuses nontender Mouth: oropharynx normal Throat: Yes posterior oropharynx normal Eyes General: appearance normal, both eyes and all related structures Neck Neck: Yes normal visual inspection, Yes no lymphadenopathy, Yes trachea midline and Yes no JVD Thyroid: Thyroid normal Chest Chest palpation & inspection: normal inspection of the chest, normal palpation of entire chest wall and no tenderness Resp Other: Percussion note is resonant. He has good breath sounds on both sides, slightly distant with prolonged expiratory phase. no wheezes, rhonchi or crepitations are heard today. Cardio Palpation: normal PMI Rate: regular rate Rhythm: regular rhythm Heart sounds: no gallops and no murmurs GI Palpation (GI): Soft to palpation, nontender, No hepatosplenomegaly present and no masses Auscultation: normal bowel sounds Back/Spine/Pelvis Thoracic/Lumbar Spine: thoracic and lumbar spine normal to inspection and thoraco-lumbar ROM limited Skin General skin exam: no rashes or lesions noted Neuro General: patient oriented x3 and no focal motor deficits Cranial nerves: Yes CN's II-XII intact bilaterally Extrem General: Yes normal to inspection, Yes no clubbing, cyanosis or edema and Yes no calf tenderness Psych Appearance: grossly normal and well kempt Speech and movement: Normal speech and movement present Results Reviewed Results Reviewed: compliance report for the last 30 nights is reviewed. he has been using it every night , except in the 1st week of June when he had nasal congestion . Assessment & Plan Assessment & Plan (1) COPD (chronic obstructive pulmonary disease): Comment: ASTHMA/COPD CURRENTLY IS WELL CONTROLLED AND STABLE. WAS TREATED FOR ACUTE EXACERBATION IN JANUARY OF THIS YEAR, AFTER THAT HAS BEEN STABLE. Code(s): J44.9 - Chronic obstructive pulmonary disease, unspecified Category: Medical Plan: CONTINUE FLUTICASONE -SALMETEROL 115-21 2 PUFFS B.I.D.. IPRATROPIUM-ALBUTEROL IN THE NEBULIZER Q 6 HOURS WHILE AWAKE. VENTOLIN HFA 2 PUFFS Q 4-6 HOURS P.R.N. WHEN OUTDOORS . (2) ALLY on CPAP: Comment: OBSTRUCTIVE SLEEP APNEA IS BEING MANAGED VERY WELL WITH THE CPAP. He is using fullface mask which is more comfortable . Code(s): G47.33 - Obstructive sleep apnea (adult) (pediatric); Z99.89 - Dependence on other enabling machines and devices Category: Medical Plan: ADVISED TO CONTINUE USING THE CPAP EVERY NIGHT. (3) RLS (restless legs syndrome): Comment: CHRONIC, PROBLEM IN ADDITION TO OBSTRUCTIVE SLEEP APNEA. CONTROLLED WITH THE USE OF ROPINIROLE 4 MG AT BEDTIME Code(s): G25.81 - Restless legs syndrome Category: Medical Plan: CONTINUE USING ROPINIROLE 4 MG AT BEDTIME (4) Obesity (BMI 30-39.9): Comment: HE IS MODERATELY OBESE, HE IS WELL AWARE OF THIS AND TRIES TO WATCH HIS DIET. Code(s): E66.9 - Obesity, unspecified Category: Medical Plan: ONCE AGAIN TALKED TO HIM ABOUT DIET AND NEED TO WALK ON A DAILY BASIS Coding Level of Care Code Est Pt Level 3 (15799) Diagnoses COPD (chronic obstructive pulmonary disease) J44.9 ALLY on CPAP G47.33; Z99.89 RLS (restless legs syndrome) G25.81 Obesity (BMI 30-39.9) E66.9
== END 2024-07-22 11:54 | disposition home or self-care (01) ==
PROVIDERS: PCP Internal Medicine; Visit Provider Internal Medicine
DX: J44.9 Chronic obstructive pulmonary disease, unspecified (principal); G47.33 Obstructive sleep apnea (adult) (pediatric); Z99.89 Dependence on other enabling machines and devices; G25.81 Restless legs syndrome; E66.9 Obesity, unspecified
CPT/HCPCS: 99213

== ENCOUNTER → 2024-07-22 11:08 | Outpatient (BNVA) | payer OTHER, SELFPAY | PROVIDERS: PCP Internal Medicine; Visit Provider Internal Medicine | DX: J44.9 Chronic obstructive pulmonary disease, unspecified (principal); G47.33 Obstructive sleep apnea (adult) (pediatric); G25.81 Restless legs syndrome; E66.9 Obesity, unspecified; Z68.31 Body mass index [BMI] 31.0-31.9, adult; Z99.89 Dependence on other enabling machines and devices | CPT/HCPCS: 99212 ==

== ENCOUNTER 2024-08-06 09:57 | Outpatient (REF) | payer OTHER, SELFPAY ==
[2024-08-06 10:55] LABS: Estimated Average Glucose 143 mg/dL; Hemoglobin A1c % 6.6 % (<6.0); Total Hemoglobin (HGBA1C) 3385.6657 umol/L
[2024-08-06 11:18] LABS: Hematocrit 39.9 % (42.0-52.0); Hemoglobin 13.5 g/dl (14.0-18.0); Mean Corpuscular HGB Conc 33.8 g/dl (31.0-36.0); Mean Corpuscular Hemoglobin 31.2 pg (27.0-33.0); Mean Corpuscular Volume 92.1 fL (80.0-98.0); Mean Platelet Volume 10.2 fL (9.4-12.4); Platelet Count 239 X10*3/uL (160-400); Red Blood Count 4.33 X10*6/uL (4.60-5.80); Red Cell Distribution Width 12.8 % (11.0-16.0); White Blood Count 7.3 X10*3/uL (4.8-10.8)
[2024-08-06 11:28] LABS: Prostate Specific Antigen 4.21 ng/mL (<0.05-4.0)
[2024-08-11 01:37] LABS: Testosterone, Total 182 ng/dL (250-1100)
== END 2024-08-06 09:58 | disposition home or self-care (01) ==
LOC: HO.LAB 09:57
PROVIDERS: PCP Internal Medicine; Visit Provider Urology
DX: E29.1 Testicular hypofunction (principal); E11.9 Type 2 diabetes mellitus without complications; Z12.5 Encounter for screening for malignant neoplasm of prostate
CPT/HCPCS: 36415; 83036; 84153; 84403; 85027

== ENCOUNTER 2024-09-24 11:41 | Outpatient (AMB) | payer OTHER, SELFPAY ==
--- NOTE | 2024-09-24 11:54 | MHC.OFFVIS ---
Intake Visit Reasons: PSA/Testosterone Follow Up(set) Intake Note: Patient is Present for Follow Up labs Urology Medication: Testosterone, Tadalafil, Sildenafil Antibiotic Allergies:None Blood Thinners:None Recent Labs: 08/06/2024 PSA: 4.21 TESTOSTERONE: 182 Allergies hydrochlorothiazide Allergy (Unknown, Verified 07/22/24 11:54) unknown lisinopril Allergy (Unknown, Verified 07/22/24 11:54) unknown olmesartan Allergy (Unknown, Verified 07/22/24 11:54) unknown venom-honey bee Allergy (Unknown, Verified 07/22/24 11:54) unknown HPI Comments Details: Jose Ramon is a pleasant [place]ian-speaking male. He is here for the following urologic condition - hypogonadism - erectile dysfunction Bel[place]ian translation provided by qualified medical service representative Doing well with gel Check labs in 6 months If not responsive to gel will move to pellets Hypogonadism 1 ml 200 mg per cc testosterone every 2 weeks Given without issue Last measured testosterone 400 04/30/21, PSA 4.1 - 11/13 PSA 4.9 T pending, 05/15 1499 46, 11/14 PSA 4.6 T 508 lab day friday, 05/16 104 P 3.9, 12/17 188 4.6, 08/17 T 182 4.2 Erectile dysfunction. Declining response to Viagra demand Switched to daily tadalafil PFSH Medical History RLS (restless legs syndrome) COPD (chronic obstructive pulmonary disease) ALLY on CPAP Obesity (BMI 30-39.9) RLS (restless legs syndrome) GERD (gastroesophageal reflux disease) COPD (chronic obstructive pulmonary disease) Carpal tunnel syndrome Lumbar disc herniation Back pain Syncope Arthritis Arrhythmia Asthma DMII (diabetes mellitus, type 2) HTN (hypertension) Surgical History History of cervical spinal surgery History of lumbosacral spine surgery History of cholecystectomy Family History Father Stroke Social History Household Members: Spouse Housing: Apartment Do you presently have visiting nurse or other home services: No (HORSE IDENTIFIER services at home 2x week) Alcohol intake: current Alcohol intake frequency: holidays/special occasions only Patient Tobacco Use Status: Former Tobacco user Tobacco use type: Cigarette e-Cigarette/Vaping Use: Former Use Current occupational status: retired Current occupation: rt handed Review of Systems Const Denies chills and Denies fever(s) Card Reports no additional complaints and Denies syncope Resp Denies cough GI Denies abdominal pain and Denies heartburn Reports as per HPI and Denies change in libido Neuro Denies syncope Psych Denies change in libido Endo Denies change in libido Physical Exam Const General: cooperative, healthy appearing, comfortable and no acute distress Orientation/consciousness: patient oriented x3 HEENT Face and sinus: Yes normal facial exam Mouth: moist mucous membranes Neck Neck: Yes normal visual inspection, Yes full ROM and Yes trachea midline Chest Chest palpation & inspection: normal inspection of the chest Resp Effort & Inspection: normal respiratory effort, able to speak in complete sentences and no respiratory distress GI Inspection: Yes normal to inspection Back/Spine/Pelvis Cervical Spine: normal cervical lordosis Thoracic/Lumbar Spine: thoracic and lumbar spine normal to inspection Skin General skin exam: no rashes or lesions noted Neuro General: patient oriented x3, gait normal, tone normal and moves all extremities Extrem General: Yes normal to inspection and Yes capillary refill normal Assessment & Plan Assessment & Plan (1) Erectile dysfunction due to arterial insufficiency: Code(s): N52.01 - Erectile dysfunction due to arterial insufficiency Category: Medical (2) Hypogonadism in male: Code(s): E29.1 - Testicular hypofunction Category: Medical Plan Six-month follow-up lab work Patient Instructions: Imaging studies, laboratory and physical exam results were discussed and reviewed in detail. No major barriers to patient understanding were identified. An opportunity to ask questions regarding the treatment plan was provided. All questions were answered. The patient expressed understanding and agreement with the above treatment plan. The patient is aware they should contact our office by phone for worsening of their current condition or the appearance of new urologic symptoms. Compliance is encouraged with any medications and followup testing that is ordered. It is a privilege to participate in the urologic care of your patient. If you have any questions or concerns regarding treatment for the above conditions, or other urologic issues, please do not hesitate to contact me. The office telephone contact is [phone]. This note is constructed using voice recognition software. While every effort has been made to ensure accuracy press tender incendiary grenade errors may have been included. Yours sincerely, Dr Sean Landis MD, [facility] - Urology Providers of Expert, Compassionate Care for the Genitourinary System Coding Level of Care Code Est Pt Level 3 (84774) Diagnoses Erectile dysfunction due to arterial insufficiency N52.01 Hypogonadism in male E29.1
== END 2024-09-24 12:19 | disposition home or self-care (01) ==
LOC: HO.HUSH 11:42
PROVIDERS: PCP Internal Medicine; Visit Provider Urology
DX: N52.01 Erectile dysfunction due to arterial insufficiency (principal); E29.1 Testicular hypofunction
CPT/HCPCS: 99213

== ENCOUNTER → 2024-09-24 11:41 | Outpatient (BNVA) | payer OTHER, SELFPAY | PROVIDERS: PCP Internal Medicine; Visit Provider Urology | DX: N52.01 Erectile dysfunction due to arterial insufficiency (principal); E29.1 Testicular hypofunction | CPT/HCPCS: 99212 ==

== ENCOUNTER 2024-10-11 14:26 | Outpatient (AMB) | payer OTHER, SELFPAY ==
--- NOTE | 2024-10-11 14:37 | A.OFFVIS_ITS ---
Vital Signs 10/11/24 14:38 Height 5 ft 4 in Weight 181 lb BMI 31.1 Intake Visit Reasons: Right shoulder injection Intake Note: Jose Ramon is a 79 year old right hand dominant male who presents today for a follow up of his right shoulder. Last injection was administered on 07/08/2024. He likely has a RTC tear, but he is not interested in surgical intervention and is not a surgical candidate. Allergies hydrochlorothiazide Allergy (Unknown, Verified 10/11/24 14:38) unknown lisinopril Allergy (Unknown, Verified 10/11/24 14:38) unknown olmesartan Allergy (Unknown, Verified 10/11/24 14:38) unknown venom-honey bee Allergy (Unknown, Verified 10/11/24 14:38) unknown HPI HPI Right shoulder injection: Details: Jose Ramon is a 79 year old right hand dominant male who presents today for a follow up of his right shoulder. Last injection was administered on 07/08/2024. He likely has a RTC tear, but he is not interested in surgical intervention and is not a surgical candidate. [facility] Medical History RLS (restless legs syndrome) COPD (chronic obstructive pulmonary disease) ALLY on CPAP Obesity (BMI 30-39.9) RLS (restless legs syndrome) GERD (gastroesophageal reflux disease) COPD (chronic obstructive pulmonary disease) Carpal tunnel syndrome Lumbar disc herniation Back pain Syncope Arthritis Arrhythmia Asthma DMII (diabetes mellitus, type 2) HTN (hypertension) Surgical History History of cervical spinal surgery History of lumbosacral spine surgery History of cholecystectomy Family History Father Stroke Social History Household Members: Spouse Housing: Apartment Do you presently have visiting nurse or other home services: No (OIL WELL CABLE TOOL DRILLER services at home 2x week) Alcohol intake: current Alcohol intake frequency: holidays/special occasions only Patient Tobacco Use Status: Former Tobacco user Tobacco use type: Cigarette e-Cigarette/Vaping Use: Former Use Current occupational status: retired Current occupation: rt handed Physical Exam Vital Signs: BMI result Body Mass Index 31.1 Extrem Other: +H/N 4/ EC Neg lift off Office Procedures Joint Inj/Aspir; Non-Pain Clin Joint Injection/Drain Details: Injected 1 mL of Decadron and 3 mL 1% lidocaine and 3 mL of 0.25% Marcaine. Site was prepped using aseptic technique. Patient tolerated the procedure well. Shoulders, Hips, Knees, Shoulder Injection Large joint : Right Shoulder Coding Procedure code (CPT) selection complete Assessment & Plan Assessment & Plan (1) Rotator cuff tear, right: Code(s): M75.101 - Unspecified rotator cuff tear or rupture of right shoulder, not specified as traumatic Category: Medical Plan: I injected his right shoulder today. I recommend he repeat injections in 4 months if he so desires. He is diabetic as well. (2) DMII (diabetes mellitus, type 2): Code(s): E11.9 - Type 2 diabetes mellitus without complications Category: Medical Plan: I informed him of the hyperglycemic effects of injections. Coding Level of Care Code Est Pt Level 4 (27159) Diagnoses Rotator cuff tear, right M75.101 DMII (diabetes mellitus, type 2) E11.9 CPT Codes Shoulders, Hips, Knees, - Shoulder Injection Large joint : Right Shoulder ([id number])
[2024-10-11 14:38] VITALS: BMI 31.1
== END 2024-10-11 15:07 | disposition home or self-care (01) ==
PROVIDERS: PCP Internal Medicine; Visit Provider Orthopaedic Surgery
DX: M75.101 Unspecified rotator cuff tear or rupture of right shoulder, not specified as traumatic (principal); E11.9 Type 2 diabetes mellitus without complications
CPT/HCPCS: 20610; 99214

== ENCOUNTER → 2024-10-11 14:26 | Outpatient (BNVA) | payer OTHER, SELFPAY | PROVIDERS: PCP Internal Medicine; Visit Provider Orthopaedic Surgery | DX: M75.101 Unspecified rotator cuff tear or rupture of right shoulder, not specified as traumatic (principal); E11.9 Type 2 diabetes mellitus without complications | CPT/HCPCS: 20610; 99212; J0665; J1100; J2003 ==

== ENCOUNTER 2024-11-10 10:17 | Outpatient (AMB) | payer OTHER, SELFPAY ==
[2024-11-10 10:25] VITALS: BP 118/60; PULSE 93; O2SAT 95; BMI 31.4
--- NOTE | 2024-11-10 10:25 | MHC.OFFVIS ---
Vital Signs 11/10/24 10:25 Height 5 ft 4 in Weight 183 lb BMI 31.4 BP 118/60 Blood Pressure Location Lt brachial Position Sitting Pulse 93 Pulse Source Pulse Oximeter Pulse Oximetry (%) 95 Oxygen Delivery Method Room Air Intake Visit Reasons: asthma Intake Note: pt is here for follow up of ALLY and states doing well gets short of breath with stairs only, pt likes the Airfit F30I W Lawn Care Specialist Required: No Allergies hydrochlorothiazide Allergy (Unknown, Verified 11/10/24 10:30) unknown lisinopril Allergy (Unknown, Verified 11/10/24 10:30) unknown olmesartan Allergy (Unknown, Verified 11/10/24 10:30) unknown venom-honey bee Allergy (Unknown, Verified 11/10/24 10:30) unknown Medication List - Last Reconciled 11/10/24 by Celestina Denney MD acetaminophen 325 mg PO QID PRN albuterol sulfate 90 mcg/actuation (Ventolin HFA) 2 puffs PO Q4-6H PRN amlodipine 10 mg PO QAM celecoxib (Celebrex) 200 mg PO DAILY chlorthalidone 12.5 mg PO QAM cholecalciferol (vitamin D3) 50 mcg PO QAM diclofenac sodium 1% 2 grams topical QID fluticasone propion-salmeterol 115-21 mcg/actuation 2 puffs inhalation BID 30 days fluticasone propionate 50 mcg/actuation 2 sprays intranasal DAILY glipizide ER 2.5 mg PO DAILY ipratropium-albuterol 0.5 mg-3 mg(2.5 mg base)/3 mL 3 mL inhalation Q6H PRN 30 days ketotifen fumarate 0.025%(0.035%) 1 drp ophthalmic (eye) BID leg brace (Knee Support Brace) knee support genumed [id number] leg brace (Knee Support Brace) Please reprint genumed rx leg brace (Knee Support Brace) knee support genumed [id number] levocetirizine 5 mg PO BEDTIME melatonin 10 mg PO BEDTIME metformin 1,000 mg PO BID montelukast 10 mg PO DAILY omeprazole 20 mg PO QAM oseltamivir 30 mg PO Q12H oxycodone-acetaminophen 5-325 mg 1 tab PO QID PRN ropinirole 4 mg PO BEDTIME sildenafil 100 mg PO DAILY PRN 30 days simvastatin 10 mg PO BEDTIME tadalafil 10 mg PO DAILY 90 days testosterone 2 pumps topical DAILY 30 days HPI HPI asthma: Details: This 79 years old gentleman with morbid obesity and diagnosis of obstructive sleep apnea is here for follow-up after 6 months. His use of CPAP has been somewhat irregular and insufficient in during the past month, as he was having issues with the mask. Prior to that he was using it regularly every night. We have provided him sample of air fit F30 and he likes this mask. Breathing has been stable. He has history of COPD for many years., has been better since he quit smoking. Continues to use fluticasone-salmeterol 2 puffs b.i.d. regularly and uses ipratropium-albuterol solution in the nebulizer 3 times a day. Also has the albuterol HFA on hand for p.r.n. use. He has chronic nasal congestion which is controlled with use of Flonase. Has had restless legs syndrome which is also controlled with medication. His main problem is lot of arthritis especially in the knees and it limits his walking. [facility] Medical History (Updated 11/10/24 @ 10:55 by Celestina Denney MD) Allergic rhinitis RLS (restless legs syndrome) COPD (chronic obstructive pulmonary disease) ALLY on CPAP Obesity (BMI 30-39.9) RLS (restless legs syndrome) GERD (gastroesophageal reflux disease) COPD (chronic obstructive pulmonary disease) Carpal tunnel syndrome Lumbar disc herniation Back pain Syncope Arthritis Arrhythmia Asthma DMII (diabetes mellitus, type 2) HTN (hypertension) Surgical History History of cervical spinal surgery History of lumbosacral spine surgery History of cholecystectomy Family History Father Stroke Social History Household Members: Spouse Housing: Apartment Do you presently have visiting nurse or other home services: No (EDGING SUPERVISOR services at home 2x week) Alcohol intake: current Alcohol intake frequency: holidays/special occasions only Patient Tobacco Use Status: Former Tobacco user Tobacco use type: Cigarette e-Cigarette/Vaping Use: Former Use Current occupational status: retired Current occupation: rt handed Review of Systems Const All systems reviewed & are unremarkable except as noted in HPI and below Eyes Reports no additional complaints ENT Reports nasal congestion (Chronic intermittent, with minimal postnasal discharge.) Card Denies chest pain, Denies irregular heart rhythm and Denies leg edema Resp Reports as per HPI GI Reports no additional complaints Reports erectile dysfunction Musc Reports back pain and Reports arthralgias (knees ) Skin/Breast Reports system reviewed and no additional complaints, except as documented Neuro Reports no additional complaints Psych Reports no additional complaints Physical Exam Const General: healthy appearing (Except for being overweight,, Weight down by 6 LBs .), comfortable, no acute distress, alert and awake Orientation/consciousness: patient oriented x3 HEENT Head: Yes normal to inspection General nose exam: No nasal polyps present and No nasal discharge present Face and sinus: Yes sinuses nontender Mouth: oropharynx normal Throat: Yes posterior oropharynx normal Eyes General: appearance normal, both eyes and all related structures Neck Neck: Yes normal visual inspection, Yes no lymphadenopathy, Yes trachea midline and Yes no JVD Thyroid: Thyroid normal Chest Chest palpation & inspection: normal inspection of the chest, normal palpation of entire chest wall and no tenderness Resp Other: Percussion note is resonant. Breath sounds are equal on both sides but quite distant with prolonged expiratory phase. A few scattered expiratory wheezes are heard in the upper chest. Cardio Palpation: normal PMI Rate: regular rate Rhythm: regular rhythm Heart sounds: no gallops and no murmurs GI Palpation (GI): Soft to palpation, nontender, No hepatosplenomegaly present and no masses Auscultation: normal bowel sounds Back/Spine/Pelvis Thoracic/Lumbar Spine: thoracic and lumbar spine normal to inspection and thoraco-lumbar ROM limited Skin General skin exam: no rashes or lesions noted Neuro General: patient oriented x3 and no focal motor deficits Cranial nerves: Yes CN's II-XII intact bilaterally Extrem General: Yes normal to inspection, Yes no clubbing, cyanosis or edema and Yes no calf tenderness Psych Appearance: grossly normal and well kempt Speech and movement: Normal speech and movement present Results Reviewed Results Reviewed: SPIROMETRY PERFORMED TODAY; FVC=64 % , FEV1=46 % FEF 25-75 = 27 % C/W SEVERE OBSTRUCTIVE AIRWAY DISORDER Assessment & Plan Assessment & Plan (1) COPD (chronic obstructive pulmonary disease): Comment: HAS CHRONIC ASTHMA/COPD , CURRENTLY WELL CONTROLLED AND STABLE. SPIROMETRY IN THE OFFICE TODAY CONFIRMS THAT HE DOES HAVE RATHER SEVERE OBSTRUCTIVE AIRWAY DISORDER Code(s): J44.9 - Chronic obstructive pulmonary disease, unspecified Category: Medical Plan: CONTINUE TO USE FLUTICASONE-SALMETEROL 115-212 PUFFS B.I.D.. IPRATROPIUM-ALBUTEROL SOLUTION IN THE NEBULIZER Q 6 HOURS P.R.N.( UP TO T.I.D.) ALBUTEROL HFA 2 PUFFS Q 6 HOURS P.R.N. WHEN OUTDOORS . (2) ALLY on CPAP: Comment: OBSTRUCTIVE SLEEP APNEA , MANAGED VERY WELL WITH THE CPAP, BUT LATELY HAS BEEN SOMEWHAT NONCOMPLIANT. Code(s): G47.33 - Obstructive sleep apnea (adult) (pediatric); Z99.89 - Dependence on other enabling machines and devices Category: Medical Plan: PROVIDED HIM WITH A FULLFACE MASK AIRFIT-F 30 . AND ALSO ORDERED THE SUPPLIES HE IS EDUCATED ABOUT COMPLIANCE AND ADVISED TO USE THE CPAP REGULARLY EVERY NIGHT. (3) Obesity (BMI 30-39.9): Comment: HE IS MODERATELY OBESE, HE IS WELL AWARE OF THIS AND TRIES TO WATCH HIS DIET. Code(s): E66.9 - Obesity, unspecified Category: Medical Plan: WATCH DIET AND TRY TO WALK EVERY DAY MUCH POSSIBLE (4) RLS (restless legs syndrome): Comment: CHRONIC, PROBLEM IN ADDITION TO OBSTRUCTIVE SLEEP APNEA. CONTROLLED WITH THE USE OF ROPINIROLE 4 MG AT BEDTIME Code(s): G25.81 - Restless legs syndrome Category: Medical Plan: CONTINUE TO TAKE ROPINIROLE 4 MG AT BEDTIME (5) Allergic rhinitis: Comment: HAS CHRONIC ALLERGIC RHINITIS WHICH IS RELATIVELY CONTROLLED WITH HIS MAINTENANCE REGIMEN. Code(s): J30.9 - Allergic rhinitis, unspecified Category: Medical Plan: CONTINUE TO TAKE [id number] MG DAILY . CONTINUE TO USE FLONASE NASAL SPRAY 2 SPRAYS EACH NOSTRIL DAILY Coding Level of Care Code Est Pt Level 4 (51577) Diagnoses COPD (chronic obstructive pulmonary disease) J44.9 ALLY on CPAP G47.33; Z99.89 Obesity (BMI 30-39.9) E66.9 RLS (restless legs syndrome) G25.81 Allergic rhinitis J30.9
== END 2024-11-10 10:55 | disposition home or self-care (01) ==
PROVIDERS: PCP Internal Medicine; Visit Provider Internal Medicine
DX: J44.9 Chronic obstructive pulmonary disease, unspecified (principal); G47.33 Obstructive sleep apnea (adult) (pediatric); Z99.89 Dependence on other enabling machines and devices; E66.9 Obesity, unspecified; G25.81 Restless legs syndrome; J30.9 Allergic rhinitis, unspecified
CPT/HCPCS: 99214

== ENCOUNTER → 2024-11-10 10:17 | Outpatient (BNVA) | payer OTHER, SELFPAY | PROVIDERS: PCP Internal Medicine; Visit Provider Internal Medicine | DX: J44.9 Chronic obstructive pulmonary disease, unspecified (principal); J30.9 Allergic rhinitis, unspecified; G47.33 Obstructive sleep apnea (adult) (pediatric); G25.81 Restless legs syndrome; E66.9 Obesity, unspecified; Z68.31 Body mass index [BMI] 31.0-31.9, adult; Z99.89 Dependence on other enabling machines and devices | CPT/HCPCS: 99212 ==

== ENCOUNTER 2024-12-29 10:51 | Outpatient (REF) | payer OTHER, SELFPAY ==
--- OUTSIDE RECORDS SUMMARY | 2024-12-29 12:01 | XMS_ITS | Encounter Summary ---
Author Organization [employer] Address [address] [place] [address] Care Team Providers Care Generator Worker Name Role Phone Colton Nelson MD Primary Care Provide r Encounter Details Date Type Department Care Team (Late st Contact Info) Description 11/13/2023 Abstract [facility] ADULT DENTAL [address] [place], [place] [phone] Pearl, Brielle [address] [place] [address] Social History Tobacco Use Types Packs/Day Years Used Date Smoking Tobacco: Former Passive Smoke Exposure: Never Smokeless Tobacco: Never Alcohol Use Standard Drinks/Week Comments Defer 0 (1 standard drink = 0.6 oz pur e alcohol) Depression Answer Date Recorded Patient Health Questionnaire-9 Score 0 12/17/2022 Housing Stability Answer Date Recorded What is your housing situation today? I have cedric lehman 09/08/[address] you li ve. Do you have problems with any of the following? None of the above 09/08/2023 Food Insecurity Answer Date Recorded Within the past 12 months, y ou worried that your food would run out before you got money to buy more: Never True 09/08/2023 Within the past 12 months,th e food you bought just didn't last and you didn't have enough money to get more: Never True Transportation Answer Date Recorded In the past 12 months, has l ack of transportation kept you from medical appts, meetings, work or from getting things needed for daily living? No 09/08/2023 Utilities Answer Date Recorded In the past 12 months, has t he electric, gas, oil or water company threatened to shut off services in your home? No 09/08/2023 Depression Answer Date Recorded Patient Health Questionnaire-2 Score 0 12/17/2022 Sex and Gender Information Value Date Recorded Sex Assigned at Male 09/23/2022 10:14 AM EDT Legal Sex Male 10:14 AM EDT Gender Identity Male 09/23/2022 10:14 AM EDT Sexual Orientation Straight 09/23/2022 10 :14 AM EDT documented as of this encounter Plan of Treatment Upcoming Encounters Date Type Department Care Team (Late st Contact Info) Description 01/14/2025 9:30 AM EST Clinical Support [facility] [address] [place] [address] Maria Isabel Elam, ELEAZAR [address] [place] [address] 03/16/2025 1:00 PM EDT Office Visit [facility] [address] [place] [address] Brielle Kang [address] [place] [address] documented as of this encounter Visit Diagnoses Not on filedocumented in this encounter Additional Health Concerns Assessment Noted Time PHQ-9 Depression Total Score: 0 12/17/19 23 10:18 AM EST documented as of this encounter Care Teams Generator Worker Relationship Specialty Start Date End Date Colton Nelson MD [address] [place] [address] PCP - General Internal Medicine 05/04/20 documented as of this encounter
--- OUTSIDE RECORDS SUMMARY | 2024-12-29 12:01 | XMS_ITS | Encounter Summary ---
Author Organization [employer] Address [address] 7[address] [place] [address] Care Team Providers Care Pododermatologist Name Role Phone Colton Nelson MD Primary Care Provide r Reason for Visit * Reason Comments Med Refill Encounter Details Date Type Department Care Team ([facility] st Contact Info) Description 10/09/2023 Refill [facility] MEDICINE [address] [place], [place] [phone] Colton Nelson MD [address] [place], [place] [phone] Social History Tobacco Use Types Packs/Day Years [...] Description 01/14/2025 9:30 AM EST Clinical Support [facility] MEDICINE [address] [place] [phone] Maria Isabel Elam, ELEAZAR [address] [place] [address] 03/16/2025 1:00 PM EDT Office Visit [facility] ADULT DENTAL [address] [place] [address] Pearl, Brielle [address] [place] [address] documented as of this encounter Visit Diagnoses Not on filedocumented in this encounter Additional Health Concerns Assessment Noted Time PHQ-9 Depression Total Score: 0 12/17/19 23 10:18 AM EST documented as of this encounter Care Teams Pododermatologist Relationship Specialty Start Date End Date Colton Nelson MD [address] [place] [id number] PCP - General Internal Medicine 05/04/20 documented as of this encounter
--- OUTSIDE RECORDS SUMMARY | 2024-12-29 12:01 | XMS_ITS | Encounter Summary ---
Author Organization [employer] Address [address] [place] [address] Care Team Providers Care Secretarial Teacher Name Role Phone Colton Nelson MD Primary Care Provide r Reason for Visit * Reason Comments Med Refill Encounter Details Date Type Department Care Team ([facility] st Contact Info) Description 10/15/2023 Refill [facility] MED[facility]INE [address] [place], [place] [phone] Colton Nelson MD [address] [place], [place] [phone] Social History Tobacco Use Types Packs/Day Years [...] Description 01/14/2025 9:30 AM EST Clinical Support [facility] [address] [place] [phone] Maria Isabel Elam, ELEAZAR [address] [place] [address] 03/16/2025 1:00 PM EDT Office Visit [facility] ADULT DENT[facility] [address] [place] [address] Pearl, Brielle [address] [place] [address] documented as of this encounter Visit Diagnoses Not on filedocumented in this encounter Additional Health Concerns Assessment Noted Time PHQ-9 Depression Total Score: 0 12/17/19 23 10:18 AM EST documented as of this encounter Care Teams Secretarial Teacher Relationship Specialty Start Date End Date Colton Nelson MD [address] [place] [id number] PCP - General Internal Medicine 05/04/20 documented as of this encounter
--- OUTSIDE RECORDS SUMMARY | 2024-12-29 12:01 | XMS_ITS | Encounter Summary ---
Author Organization [employer] Address [address] [place] [address] Care Team Providers Care [employer] Founder Name Role Phone Colton Nelson MD Primary Care Provide r Reason for Visit * Reason Onset Date Comments Appointment Request 10/30/2023 Encounter Details Date Type Department Care Team ([facility] st Contact Info) Description 10/30/2023 Telephone [facility] [address] [place], [place] [phone] Colton Nelson MD [address] [place], [place] [phone] Appointment Request Social History Tobacco Use Types Packs/Day Years [...] AM EDT documented as of this encounter Miscellaneous Notes * Telephone Encounter - Sawyer Neville - 10/30/2023 11:49 AM EST Tc from pt requesting to r/s his BESSEMER CONVERTER BLOWER visit. Please contact pt at [phone]. documented in this encounter Plan of Treatment Upcoming Encounters Date Type Department Care Team (Late st Contact Info) Description 01/14/2025 9:30 AM EST Clinical Support [facility] [address] [place] [address] Maria Isabel Elam RN [address] [place] [address] 03/16/2025 1:00 PM EDT Office Visit [facility] ADULT D[facility] [address] [place] [address] Pearl, Brielle [address] [place] [address] documented as of this encounter Visit Diagnoses Not on filedocumented in this encounter Additional Health Concerns Assessment Noted Time PHQ-9 Depression Total Score: 0 12/17/19 23 10:18 AM EST documented as of this encounter Care Teams [employer] Founder Relationship Specialty Start Date End Date Colton Nelson MD [address] [place] [address] PCP - General Internal Medicine 05/04/20 documented as of this encounter
--- OUTSIDE RECORDS SUMMARY | 2024-12-29 12:01 | XMS_ITS | Encounter Summary ---
Author Organization [employer] Address [address] [place] [address] Care Team Providers Care Residential Mortgage Underwriter Name Role Phone Colton Nelson MD Primary Care Provide r Reason for Visit * Reason Comments Med Refill Encounter Details Date Type Department Care Team ([facility] st Contact Info) Description 10/09/2023 Refill [facility] [address] [place], [place] [phone] Gudelia Flores FNP [address] [place], [place] [phone] Social History Tobacco Use Types Packs/Day Years [...] Description 01/14/2025 9:30 AM EST Clinical Support [facility] MEDICINE [address] [place] [phone] Maria Isabel Elam, ELEAZAR [address] [place] [address] 03/16/2025 1:00 PM EDT Office Visit [facility] ADULT DENTAL [address] [place] [address] Pearl, Brielle [address] [place] [address] documented as of this encounter Visit Diagnoses Not on filedocumented in this encounter Additional Health Concerns Assessment Noted Time PHQ-9 Depression Total Score: 0 12/17/19 23 10:18 AM EST documented as of this encounter Care Teams Residential Mortgage Underwriter Relationship Specialty Start Date End Date Colton Nelson MD [address] [place] [id number] PCP - General Internal Medicine 05/04/20 documented as of this encounter
--- OUTSIDE RECORDS SUMMARY | 2024-12-29 12:01 | XMS_ITS | Encounter Summary ---
Author Organization [employer] Address [address] [place] [address] Care Team Providers Care Anglesmith Helper Name Role Phone Colton Nelson MD Primary Care Provide r Reason for Visit * Reason Comments Pre-visit Planning SDOH Screening negat osman and Tobacco screening negative Encounter Details Date Type Department Care Team ([facility] st Contact Info) Description 12/09/2024 Patient Outreach [facility] MEDICINE [address] [place], [place] [phone] Colton Nelson MD [address] [place], [place] [phone] Pre-visit Planning (SDOH Screening negative and Tobacco screening negative) Social History Tobacco Use Types Packs/Day Years Used Date Smoking Tobacco: Former Passive Smoke Exposure: Past Smokeless Tobacco: Never Alcohol Use Standard Drinks/Week Comments Yes 0 (1 standard drink = 0.6 oz pur e alcohol) Ocasional Alcohol Answer Date Recorded How often do you have a drink containing alcohol ? 1 11/11/2024 How many drinks containing a lcohol do you have on a typical day when you are drinking? 1 11/11/2024 How often do you have six or more drinks on one occasion? 1 11/11/2024 Depression Answer Date Recorded Patient Health Questionnaire-9 Score 0 05/11/2024 Patient Health Questionnaire-9 Score 0 05/11/2024 Last PHQ-9: Questionnaire Data Not on file 0 05/11/2024 Housing Stability Answer Date Recorded What is your housing situation today? I have cedric lehman 05/11/[address] you li ve. Do you have problems with any of the following? None of the above 05/11/2024 Food Insecurity Answer Date Recorded Within the past 12 months, y ou worried that your food would run out before you got money to buy more: Never True 05/11/2024 Within the past 12 months,th e food you bought just didn't last and you didn't have enough money to get more: Never True Transportation Answer Date Recorded In the past 12 months, has l ack of transportation kept you from medical appts, meetings, work or from getting things needed for daily living? No 05/11/2024 Utilities Answer Date Recorded In the past 12 months, has t he electric, gas, oil or water company threatened to shut off services in your home? No 05/11/2024 Depression Answer Date Recorded Patient Health Questionnaire-2 Score 0 05/11/2024 Internet Access Answer Date Recorded Internet Access Q1 Yes 12/09/2024 Internet Access Q2 Not on file 12/09/2024 Sex and Gender Information Value Date Recorded Sex Assigned at Male 09/23/2022 10:14 AM EDT Legal Sex Male 10:14 AM EDT Gender Identity Male 09/23/2022 10:14 AM EDT Sexual Orientation Straight 09/23/2022 10 :14 AM EDT documented as of this encounter Progress Notes * Carol Tapia - 12/09/2024 12:53 PM EST MARY Vitale placed successful outbound call to patient for pre-visit planning. Patient name and confirmed. Patient confirms appt date and time, and has transportation arrangements. Biggest concern for appointment at this time is no concerns. Patient advised to bring to appointment a photo id and insurance card. Appropriate screenings completed in anticipation of appointment. documented in this encounter Plan of Treatment Upcoming Encounters Date Type Department Care Team (Late st Contact Info) Description 01/14/2025 9:30 AM EST Clinical Support [facility] MED[facility] [address] [place] [phone] Maria Isabel Elam RN [address] [place], [place] [phone] 03/16/2025 1:00 PM EDT Office Visit [facility] ADULT DENTAL [address] [place] [address] Brielle Kang [address] [place] [address] documented as of this encounter Visit Diagnoses Not on filedocumented in this encounter Additional Health Concerns Assessment Noted Time PHQ-9 Depression Total Score: 0 05/11/20 24 1:30 PM EDT documented as of this encounter Care Teams Anglesmith Helper Relationship Specialty Start Date End Date Colton Nelson MD [address] [place] [address] PCP - General Internal Medicine 05/04/20 documented as of this encounter
--- OUTSIDE RECORDS SUMMARY | 2024-12-29 12:02 | XMS_ITS | Encounter Summary ---
Author Organization [employer] Address [address] [place] [address] Care Team Providers Care Laborer Chemical Processing Name Role Phone Colton Nelson MD Primary Care Provide r Reason for Visit * Reason Onset Date Comments Appointment Request 11/18/2024 Encounter Details Date Type Department Care Team ([facility] st Contact Info) Description 11/18/2024 Telephone [facility] MEDICINE [address] [place], [place] [phone] Colton Nelson MD [address] [place], [place] [phone] Appointment Request Social History Tobacco Use Types [...] Access Answer Date Recorded Internet Access Q1 No 07/25/2024 Internet Access Q2 Not on file 07/25/2024 Sex and Gender Information Value Date Recorded Sex Assigned at Male 09/23/2022 10:14 AM EDT Legal Sex Male 10:14 AM EDT Gender Identity Male 09/23/2022 10:14 AM EDT Sexual Orientation Straight 09/23/2022 10 :14 AM EDT documented as of this encounter Miscellaneous Notes * Telephone Encounter - Sawyer Neville - 11/18/2024 2:45 PM EST Tc from pt calling requesting call back to reschedule STARS SPECIALIST visit. Please contact pt at [phone]. (Polish Speaker) documented in this encounter Plan of Treatment Upcoming Encounters Date Type Department Care Team (Late st Contact Info) Description 01/14/2025 9:30 AM EST Clinical Support [facility] [address] [place] [address] Maria Isabel Elam RN [address] [place] [address] 03/16/2025 1:00 PM EDT Office Visit [facility] ADULT DENTAL [address] [place] [address] Brielle Kang [address] [place] [address] documented as of this encounter Visit Diagnoses Not on filedocumented in this encounter Additional Health Concerns Assessment Noted Time PHQ-9 Depression Total Score: 0 05/11/20 24 1:30 PM EDT documented as of this encounter Care Teams Laborer Chemical Processing Relationship Specialty Start Date End Date Colton Nelson MD [address] [place] [address] PCP - General Internal Medicine 05/04/20 documented as of this encounter
--- OUTSIDE RECORDS SUMMARY | 2024-12-29 12:02 | XMS_ITS | Encounter Summary ---
Author Organization [employer] Address [address] [place] [address] 7t [place] [address] Care Team Providers Care Curtain Worker Name Role Phone Colton Nelson MD Primary Care Provide r Reason for Visit * Reason Comments Med Refill Encounter Details Date Type Department Care Team (Late st Contact Info) Description 03/27/2023 Refill [facility] MEDICINE [address] [place] [address] Roxi Scott FNP [address] [place] [address] Dept [place] [address] Social History Tobacco Use Types Packs/Day Years Used Date Smoking Tobacco: Never Smokeless Tobacco: Never Depression Answer Date Recorded Patient Health Questionnaire-9 Score 0 12/17/2022 Depression Answer Date Recorded Patient Health Questionnaire-2 [...] 01/14/2025 9:30 AM EST Clinical Support [facility] MEDICINE [address] [place] [address] Maria Isabel Elam RN [address] [place] [address] 03/16/2025 1:00 PM EDT Office Visit [facility] ADULT DENTAL [address] [place], [place] [phone] Brielle Kang [address] [place] [address] documented as of this encounter Visit Diagnoses Not on filedocumented in this encounter Additional Health Concerns Assessment Noted Time PHQ-9 Depression Total Score: 0 12/17/19 23 10:18 AM EST documented as of this encounter Care Teams Curtain Worker Relationship Specialty Start Date End Date Colton Nelson MD 230 [place] [address] PCP - General Internal Medicine 05/04/20 documented as of this encounter
--- OUTSIDE RECORDS SUMMARY | 2024-12-29 12:02 | XMS_ITS | Encounter Summary ---
Author Organization [employer] Address [address] [facility] [address] [facility] [address] 7t [place] [address] Care Team Providers Care Director Of Online Merchandising Name Role Phone Colton Nelson MD Primary Care Provide r Reason for Visit * Reason Comments Med Refill Encounter Details Date Type Department Care Team ([facility] st Contact Info) Description 04/21/2024 Refill [facility] MEDICINE [address] [place], [place] [phone] Constance Wiggins MD 230 [place], [place] [phone] Chronic obstructive pulmonary disease, unspecified COPD type (CMS/HCC) Social History Tobacco Use Types Packs/Day Years [...] 9:30 AM EST Clinical Support [facility] MEDICINE [address] [place] [address] Maria Isabel Elam, ELEAZAR [address] [place] [address] 03/16/2025 1:00 PM EDT Office Visit [facility] ADULT DENTAL [address] [place] [address] Pearl, Brielle [address] [place] [address] documented as of this encounter Visit Diagnoses Diagnosis Chronic obstructive pulmonary disease, unspecified COPD type (CMS/HCC) documented in this encounter Additional Health Concerns Assessment Noted Time PHQ-9 Depression Total Score: 0 12/17/19 23 10:18 AM EST documented as of this encounter Care Teams Director Of Online Merchandising Relationship Specialty Start Date End Date Colton Nelson MD [address] [place] [address] PCP - General Internal Medicine 05/04/20 documented as of this encounter
--- OUTSIDE RECORDS SUMMARY | 2024-12-29 12:02 | XMS_ITS | Encounter Summary ---
Author Organization [employer] Address [address] [place] [facility] [address] 7[address] [place] [address] Care Team Providers Care Athletic Equipment Manager Name Role Phone Colton Nelson MD Primary Care Provide r Reason for Visit * Reason Onset Date Comments Call Back Request 05/13/2024 Encounter Details Date Type Department Care Team ([facility] st Contact Info) Description 05/13/2024 Telephone [facility] MEDICINE [address] [place], [place] [phone] Colton Nelson MD 230 [place], [place] [phone] Call Back Request Social History Tobacco Use Types Packs/Day [...] Recorded Patient Health Questionnaire-2 Score 0 05/11/2024 Sex and Gender Information Value Date Recorded Sex Assigned at Male 09/23/2022 10:14 AM EDT Legal Sex Male 10:14 AM EDT Gender Identity Male 09/23/2022 10:14 AM EDT Sexual Orientation Straight 09/23/2022 10 :14 AM EDT documented as of this encounter Miscellaneous Notes * Telephone Encounter - Rozina Jimenez - 05/13/2024 9:12 AM EDT Tc from pt requesting a call back with slip cover operator, stated think he needs an appt but not sure about it. documented in this encounter Plan of Treatment Upcoming Encounters Date Type Department Care Team (Late st Contact Info) Description 01/14/2025 9:30 AM EST Clinical Support [facility] MEDICINE [address] [place] [address] Maria Isabel Elam, ELEAZAR [address] [place] [address] 03/16/2025 1:00 PM EDT Office Visit [facility] ADULT DENTAL [address] [place] [address] Pearl, Brielle [address] [place] [address] documented as of this encounter Visit Diagnoses Not on filedocumented in this encounter Additional Health Concerns Assessment Noted Time PHQ-9 Depression Total Score: 0 05/11/20 24 1:30 PM EDT documented as of this encounter Care Teams Athletic Equipment Manager Relationship Specialty Start Date End Date Colotn Nelson MD 230 [place] [address] PCP - General Internal Medicine 05/04/20 documented as of this encounter
--- OUTSIDE RECORDS SUMMARY | 2024-12-29 12:02 | XMS_ITS | Encounter Summary ---
Author Organization [facility] Address [address] [place] [address] 7t [place] [address] Care Team Providers Care Explosive Ordnance Disposal Manager Name Role Phone Colton Nelson MD Primary Care Provide r Encounter Details Date Type Department Care Team (Latest Contact Info) Description 12/06/2021 Abstract [facility] Dental, Provider, DDS Social History Tobacco Use Types Packs/Day Years Used Date Smoking Tobacco: Never Assessed Sex and Gender Information Value Date Recorded Sex Assigned at Male 09/23/2022 10:14 AM EDT Legal Sex Male 10:14 AM EDT Gender Identity Male 09/23/2022 10:14 AM EDT Sexual Orientation Straight 09/23/2022 10 :14 AM EDT documented as of this encounter Plan of Treatment Upcoming Encounters Date Type Department Care Team (Late st Contact Info) Description 01/14/2025 9:30 AM EST Clinical Support [facility] MEDICINE [address] [place] [address] Maria Isabel Elam RN [address] [place] [address] 03/16/2025 1:00 PM EDT Office Visit [facility] ADULT DENTAL [address] [place] [address] Xavier Kangaris [address] [place] [address] documented as of this encounter Visit Diagnoses Not on filedocumented in this encounter Care Teams Explosive Ordnance Disposal Manager Relationship Specialty Start Date End Date Colton Nelson MD [address] [place] [address] PCP - General Internal Medicine 05/04/20 documented as of this encounter
--- OUTSIDE RECORDS SUMMARY | 2024-12-29 12:02 | XMS_ITS | Encounter Summary ---
Author Organization [employer] Address [address] 7t [place] [address] Care Team Providers Care Chief Engineer'S Helper Name Role Phone Colton Nelson MD Primary Care Provide r Reason for Visit * Reason Onset Date Comments Chart Prep 12/10/2024 Encounter Details Date Type Department Care Team ([facility] st Contact Info) Description 12/10/2024 Telephone [facility] MEDICINE [address] [place], [place] [phone] Colton Nelson MD 230 [place], [place] [phone] Chart Prep Social History Tobacco Use Types Packs/Day Years [...] encounter Miscellaneous Notes * Telephone Encounter - Denise Kwon MA - 12/10/2024 10:29 AM EST Chart Prep Labs: not done Images: not applicable Vaccines due: RSV in Pharmacy Due Referrals: Not Applicable Screenings: Eye Exam Overdue care gaps: Glucose Chart prep for upcoming appt with Dr.Esparza rodriguez. LB documented in this encounter Plan of Treatment Upcoming Encounters Date Type Department Care Team (Late st Contact Info) Description 01/14/2025 9:30 AM EST Clinical Support [facility] MED[facility]INE [address] [place] [address] Maria Isabel Elam RN 505 [place] [address] 03/16/2025 1:00 PM EDT Office Visit [facility] ADULT DENTAL [address] [place] [address] Brielle Kang [address] [place] [address] documented as of this encounter Visit Diagnoses Not on filedocumented in this encounter Additional Health Concerns Assessment Noted Time PHQ-9 Depression Total Score: 0 05/11/20 24 1:30 PM EDT documented as of this encounter Care Teams Chief Engineer'S Helper Relationship Specialty Start Date End Date Colton Nelson MD [address] [place] [address] PCP - General Internal Medicine 05/04/20 documented as of this encounter
--- OUTSIDE RECORDS SUMMARY | 2024-12-29 12:02 | XMS_ITS | Encounter Summary ---
Author Organization [employer] Address [address] [facility] [address] [address] 7t [place] [address] Care Team Providers Care Interactive Marketing Strategist Name Role Phone Colton Nelson MD Primary Care Provide r Reason for Visit * Reason Comments Med Refill Encounter Details Date Type Department Care Team ([facility] st Contact Info) Description 06/18/2024 Refill [facility] MEDICINE [address] [place], [place] [phone] Colton Nelson MD 230 [place], [place] [phone] Chronic obstructive pulmonary disease, unspecified COPD type [...] 01/14/2025 9:30 AM EST Clinical Support [facility] MEDICINE [address] [place] [phone] Maria Isabel Elam RN 505 [place] [address] 03/16/2025 1:00 PM EDT Office Visit [facility] ADULT DENTAL 230 [place] [address] Xavier Kangaris 230 [place] [address] documented as of this encounter Visit Diagnoses Diagnosis Chronic obstructive pulmonary disease, unspecified COPD type (CMS/HCC) documented in this encounter Additional Health Concerns Assessment Noted Time PHQ-9 Depression Total Score: 0 05/11/20 24 1:30 PM EDT documented as of this encounter Care Teams Interactive Marketing Strategist Relationship Specialty Start Date End Date Colton Nelson MD [address] [place] [address] PCP - General Internal Medicine 05/04/20 documented as of this encounter
--- OUTSIDE RECORDS SUMMARY | 2024-12-29 12:02 | XMS_ITS | Encounter Summary ---
Author Organization [employer] Address [address] [facility] [place] [address] [place] [address] Care Team Providers Care Principal Archaeologist Name Role Phone Colton Nelson MD Primary Care Provide r Encounter Details Date Type Department Care Team (Latest Contact Info) Description 12/21/2024 Travel Social History Tobacco Use Types Packs/Day Years [...] Description 01/14/2025 9:30 AM EST Clinical Support [facility] MEDICINE 230 [place] [address] Maria Isabel Elam, ELEAZAR 505 [place] [address] 03/16/2025 1:00 PM EDT Office Visit [facility] ADULT DENTAL 230 [place] [address] Pearl, Brielle [address] [place] [address] documented as of this encounter Visit Diagnoses Not on filedocumented in this encounter Additional Health Concerns Assessment Noted Time PHQ-9 Depression Total Score: 0 05/11/20 24 1:30 PM EDT documented as of this encounter Care Teams Principal Archaeologist Relationship Specialty Start Date End Date Colton Nelson MD 230 [place] [address] PCP - General Internal Medicine 05/04/20 documented as of this encounter
--- OUTSIDE RECORDS SUMMARY | 2024-12-29 12:02 | XMS_ITS | Encounter Summary ---
Author Organization [employer] Address [address] [facility] [address] 7[address] [place] [address] Care Team Providers Care Division Head Name Role Phone Colton Nelson MD Primary Care Provide r Reason for Visit * Reason Onset Date Comments Reschedule 02/18/2024 Encounter Details Date Type Department Care Team ([facility] st Contact Info) Description 02/18/[address] [facility] MEDICINE [address] [place], [place] [phone] Colton Nelson MD [address] [place], [place] [phone] Reschedule Social History Tobacco Use Types Packs/Day Years [...] encounter Miscellaneous Notes * Telephone Encounter - Cristal Martinez - 02/18/2024 9:20 AM EDT Tc from pt requesting to reschedule 02/17 COUN[facility] appointment. Please contact pt at [phone] documented in this encounter Plan of Treatment Upcoming Encounters Date Type Department Care Team (Late st Contact Info) Description 01/14/2025 9:30 AM EST Clinical Support [facility] MEDICINE [address] [place] [address] Maria Isabel Elam, ELEAZAR [address] [place] [address] 03/16/2025 1:00 PM EDT Office Visit [facility] ADULT DENTAL [address] [place] [address] Pearl, Brielle [address] [place] [address] documented as of this encounter Visit Diagnoses Not on filedocumented in this encounter Additional Health Concerns Assessment Noted Time PHQ-9 Depression Total Score: 0 12/17/19 23 10:18 AM EST documented as of this encounter Care Teams Division Head Relationship Specialty Start Date End Date Colton Nelson MD [address] [place] [address] PCP - General Internal Medicine 05/04/20 documented as of this encounter
--- OUTSIDE RECORDS SUMMARY | 2024-12-29 12:02 | XMS_ITS | Encounter Summary ---
Author Organization [employer] Address [address] [facility] [facility] [place] [facility] [address] [place] [address] Care Team Providers Care Director Of Casino Marketing Name Role Phone Colton Nelson MD Primary Care Provide r Reason for Visit * Reason Comments Med Refill Encounter Details Date Type Department Care Team (Late Contact Info) Description 04/17/2023 Refill [facility] MED & PEDS [address] [place], [place] [phone] Colton Nelson MD 230 [place] [address] Social History Tobacco Use Types Packs/Day Years Used Date Smoking Tobacco: Never Passive Smoke Exposure: Never Smokeless Tobacco: Never [...] Orientation Straight 09/23/2022 10 :14 AM EDT COVID-19 Exposure Response Date Recorded In the last 10 days, have yo u been in contact with someone who was confirmed or suspected to have Coronavirus/COVID-19? No / Unsure 04/01/2023 8:55 AM EDT documented as of this encounter Plan of Treatment Upcoming Encounters Date Type Department Care Team (Late Contact Info) Description 01/14/2025 9:30 AM EST Clinical Support [facility] MEDICINE [address] [place] [address] Maria Isabel Elam, RN [address] [place] [address] 03/16/2025 1:00 PM EDT Office Visit [facility] ADULT DENTAL [address] [place] [address] Brielle Kang 230 [place] [address] documented as of this encounter Visit Diagnoses Not on filedocumented in this encounter Additional Health Concerns Assessment Noted Time PHQ-9 Depression Total Score: 0 12/17/19 10:18 AM EST documented as of this encounter Care Teams Director Of Casino Marketing Relationship Specialty Start Date End Date Colton Nelson MD [address] [place] [address] PCP - General Internal Medicine 05/04/20 documented as of this encounter
--- OUTSIDE RECORDS SUMMARY | 2024-12-29 12:02 | XMS_ITS | Encounter Summary ---
Author Organization [employer] Address [address] 7[address] [place] [address] Care Team Providers Care Ict Teacher Name Role Phone Colton Nelson MD Primary Care Provide r Encounter Details Date Type Department Care Team ([facility] st Contact Info) Description 11/22/2022 Telephone [facility] MEDICINE [address] [place], [place] [phone] Colton Nelson MD 230 [place], [place] [phone] Social History Tobacco Use Types Packs/Day Years Used Date Smoking Tobacco: Never Assessed Alcohol Answer Date Recorded How often do [...] suspected to have Coronavirus/COVID-19? No / Unsure 05/22/2023 2:40 PM EDT documented as of this encounter Plan of Treatment Upcoming Encounters Date Type Department Care Team (Late st Contact Info) Description 01/14/2025 9:30 AM EST Clinical Support [facility] MEDICINE [address] [place] [address] Maria Isabel Elam, RN [address] [place] [address] 03/16/2025 1:00 PM EDT Office Visit [facility] ADULT DENTAL [address] [place] [address] Pearl, Brielle [address] [place] [address] documented as of this encounter Visit Diagnoses Not on filedocumented in this encounter Care Teams Ict Teacher Relationship Specialty Start Date End Date Colton Nelson MD [address] [place] [address] PCP - General Internal Medicine 05/04/20 documented as of this encounter
--- OUTSIDE RECORDS SUMMARY | 2024-12-29 12:02 | XMS_ITS | Encounter Summary ---
Author Organization [employer] Address [address] [facility] [address] [place] [address] Care Team Providers Care Oral Hygienist Name Role Phone Colton Nelson MD Primary Care Provide r Reason for Visit * Reason Comments Annual Exam Needs for work Encounter Details Date Type Department Care Team (Latest Contact Info) Description 12/21/2024 1:30 PM EST Office Visit [facility] [address] [place], [place] [phone] Colton Nelson MD [address] [place], [place] [phone] Essential hypertension (Primary Dx); Pulmonary emphysema, unspecified emphysema type (CMS/HCC); Type 2 diabetes mellitus without complication, without long-term current use of insulin (CMS/HCC); Mixed hyperlipidemia; Obesity (BMI 30-39.9); Dietary counseling; Exercise counseling; Routine physical examination; Preventative health care; Erectile dysfunction due to arterial insufficiency Social History Tobacco Use Types Packs/Day Years [...] AM EDT documented as of this encounter Last Filed Vital Signs Vital Sign Reading Time Taken Comments Blood Pressure 138/82 12/21/2024 1:48 PM EST Pulse 73 12/21/2024 1:27 PM EST Temperature 36.2 ??C (97.1 ??F) 12/21/2024 1:27 PM ES T Respiratory Rate 20 12/21/2024 1:27 PM EST Oxygen Saturation 94% 12/21/2024 1:27 PM EST Inhaled Oxygen Concentration - - Weight 83.9 kg (185 lb) 12/21/2024 1:27 PM EST Height 162.6 cm (5' 4 ) 12/21/2024 1:27 PM EST Body Mass Index 31.76 12/21/2024 1:27 PM EST documented in this encounter Progress Notes * Colton De Leon MD - 12/21/2024 1:30 PM EST SUBJECTIVE Jose Ramon Feliciano is a 79 y.o. male who presents for Annual Exam (Needs for work). Patient is here for an exam Hypertension This is a chronic problem. Pertinent negatives include no chest pain, headaches, palpitations or shortness of breath. Review of Systems Constitutional: Negative for appetite change, fatigue and fever. HENT: Negative for ear pain, hearing loss and sore throat. Eyes: Negative for pain and visual disturbance. Respiratory: Negative for cough and shortness of breath. Cardiovascular: Negative for chest pain and palpitations. Gastrointestinal: Negative for abdominal pain, nausea and vomiting. Genitourinary: Negative for dysuria. Skin: Negative for rash. Neurological: Negative for dizziness and headaches. Psychiatric/Behavioral: Negative for sleep disturbance. Allergies Allergen Reactions Lisinopril Olmesartan Unknown Hydrochlorothiazide Rash OBJECTIVE Vitals: 12/21/24 1327 12/21/24 1348 BP: (!) 154/79 138/82 BP Location: Left arm Left arm Patient Position: Sitting Sitting BP Cuff Size: Adult Pulse: 73 Resp: 20 Temp: 97.1 ??F (36.2 ??C) TempSrc: Temporal SpO2: 94% Weight: 185 lb (83.9 kg) Height: 5' 4 (1.626 m) Physical Exam Vitals reviewed. Constitutional: General: He is not in acute distress. Appearance: Normal appearance. HENT: Head: Normocephalic and atraumatic. Right Ear: Tympanic membrane, ear canal and external ear normal. Left Ear: Tympanic membrane, ear canal and external ear normal. Nose: Nose normal. Mouth/Throat: Mouth: Mucous membranes are moist. Pharynx: Oropharynx is clear. Eyes: Extraocular Movements: Extraocular movements intact. Conjunctiva/sclera: Conjunctivae normal. Pupils: Pupils are equal, round, and reactive to light. Cardiovascular: Rate and Rhythm: Normal rate and regular rhythm. Pulses: Normal pulses. Heart sounds: Normal heart sounds. Pulmonary: Effort: Pulmonary effort is normal. Breath sounds: Normal breath sounds. Abdominal: General: Bowel sounds are normal. Palpations: Abdomen is soft. Genitourinary: Penis: Normal. Testes: Normal. Musculoskeletal: General: Normal range of motion. Cervical back: Normal range of motion and neck supple. Skin: General: Skin is warm. Capillary Refill: Capillary refill takes less than 2 seconds. Neurological: General: No focal deficit present. Mental Status: He is alert and oriented to person, place, and time. Psychiatric: Mood and Affect: Mood normal. Assessment/Plan Problem List Items Addressed This Visit Essential hypertension - Primary Here for a f/u regarding his HTN BP better controlled. He is on a regimen of: Norvasc 10 mg po daily, and Chlortalidone 25 mg 1 tab po daily, He stopped taking Losartan because he feels it does not agree with him, He has a medbox Plan: Follow up 4 months Most recent electrolytes, Bun and Creatinine done on: Lab Results Component Value Date NA 139 02/19/2024 NA 137 11/15/2023 K 4.3 02/19/2024 K 4.5 11/15/2023 CL 96 02/19/2024 CL 97 11/15/2023 BUN 17 (H) 02/19/2024 BUN 18 (H) 11/15/2023 CREATININE 1.16 02/19/2024 CREATININE 1.01 11/15/2023 Will repeat patient advised to adhere to a low sodium diet, encouraged about medication compliance, counseled about weight loss. Relevant Medications chlorthalidone (Hygroton) 25 MG tablet Other Relevant Orders Comprehensive Metabolic Panel Lipid Panel, Standard Chronic obstructive lung disease (CMS/HCC) Pt last seen by his Temporary Administrative Assistant Dr Denney 11/11/2024 He is on Advair HFA 2 puffs BID and instructed to use Albuterol PRN only Diabetes mellitus, type II (CMS/HCC) Pt here for a f/u DM remains controlled He is on a regimen of: Metformin 1000 mg po BID and Glipizide XL 2.5 mg po daily Hgb A1c 11/11/2024: 6.8 from 6.6 Eye exam was last done on: 03/30/2019 Microalbumin checked on: 04/19/2022 was: 0.7 Pt is not on an ARB Foot check risk of zero Pt reports compliance with Asa 81 mg po daily Pt advised to: adhere to diabetic diet check your blood sugars regularly check your feet on a daily basis Relevant Orders POCT Glucose (Completed) Lipid Panel, Standard Hyperlipidemia Pt here for a f/u Patient with elevated lipids. Most recent lipid profile from: Lab Results Component Value Date TRIG 97 02/13/2023 02/13/2023 shows a total cholesterol of: 130 triglycerides of: 97 HDL of: 59 and LDL of: 53 Currently on a regimen of: Simvastatin 10 mg po qhs Plan: continue with current regimen. Repeat lipid profile advised to try to adhere to a low cholesterol diet, counseled and educated about diet and exercise,Patient encouraged to come up with a personal goal for weight loss. Obesity (BMI 30-39.9) Patient has been counseled and educated about diet and exercise. Personal goal of weight loss discussedPatient has comorbidity of: DM Dietary Recommendations: Fruits, vegetables, whole grains, protein foods, and fat-free or low-fat dairy products are healthychoices. Eat different types of protein foods in your diet. This can include seafood, lean meats, poultry, beans, peas, lentils, nuts, seeds, soy products, and eggs. Limit foods and beverages higher in added sugars, saturated fat, and sodium. Exercise Recommendations: At least 150 minutes of moderate-intensity physical activity per week, or an equivalent combinationof moderate- and vigorous-intensity activity Routine physical examination Examination today within normal limits Preventative health care Colonoscopy: 09/13/2021 Dr Galvez PSA 08/06/2024: 4.[address] aLndis Erectile dysfunction due to arterial insufficiency Relevant Medications sildenafil (Viagra) 100 MG tablet Other Visit Diagnoses Dietary counseling Exercise counseling documented in this encounter Miscellaneous Notes * Assessment & Plan Note - Colton De Leon MD - 12/21/2024 1:31 PM EST Associated Problem(s): Routine physical examination Examination today within normal limits * Assessment & Plan Note - Colton De Leon MD - 12/21/2024 1:30 PM EST Associated Problem(s): Preventative health care Colonoscopy: 09/13/2021 Dr Galvez PSA 08/06/2024: 4.[address] Landis * Addendum Note - Colton De Leon MD - 12/21/2024 1:30 PM ESTAddended by: COLTON ALVARADO on: 12/21/2024 01:54 PM Modules accepted: Orders * Assessment & Plan Note - Colton De Leon MD - 12/21/2024 10:09 AM EST Associated Problem(s): Obesity (BMI 30-39.9) Patient has been counseled and educated about diet and exercise. Personal goal of weight loss discussedPatient has comorbidity of: DM Dietary Recommendations: Fruits, vegetables, whole grains, protein foods, and fat-free or low-fat dairy products are healthychoices. Eat different types of protein foods in your diet. This can include seafood, lean meats, poultry, beans, peas, lentils, nuts, seeds, soy products, and eggs. Limit foods and beverages higher in added sugars, saturated fat, and sodium. Exercise Recommendations: At least 150 minutes of moderate-intensity physical activity per week, or an equivalent combinationof moderate- and vigorous-intensity activity * Assessment & Plan Note - Colton De Leon MD - 12/21/2024 10:08 AM EST Associated Problem(s): Hyperlipidemia Pt here for a f/u Patient with elevated lipids. Most recent lipid profile from: Lab Results Component Value Date TRIG 97 02/13/2023 02/13/2023 shows a total cholesterol of: 130 triglycerides of: 97 HDL of: 59 and LDL of: 53 Currently on a regimen of: Simvastatin 10 mg po qhs Plan: continue with current regimen. Repeat lipid profile advised to try to adhere to a low cholesterol diet, counseled and educated about diet and exercise,Patient encouraged to come up with a personal goal for weight loss. * Assessment & Plan Note - Colton De Leon MD - 12/21/2024 10:06 AM EST Associated Problem(s): Diabetes mellitus, type II (CMS/HCC) Pt here for a f/u DM remains controlled He is on a regimen of: Metformin 1000 mg po BID and Glipizide XL 2.5 mg po daily Hgb A1c 11/11/2024: 6.8 from 6.6 Eye exam was last done on: 03/30/2019 Microalbumin checked on: 04/19/2022 was: 0.7 Pt is not on an ARB Foot check risk of zero Pt reports compliance with Asa 81 mg po daily Pt advised to: adhere to diabetic diet check your blood sugars regularly check your feet on a daily basis * Assessment & Plan Note - Colton De Leon MD - 12/21/2024 10:06 AM EST Associated Problem(s): Chronic obstructive lung disease (CMS/HCC) Pt last seen by his Temporary Administrative Assistant Dr Denney 11/11/2024 He is on Advair HFA 2 puffs BID and instructed to use Albuterol PRN only * Assessment & Plan Note - Colton De Leon MD - 12/21/2024 10:05 AM EST Associated Problem(s): Essential hypertension Here for a f/u regarding his HTN BP better controlled. He is on a regimen of: Norvasc 10 mg po daily, and Chlortalidone 25 mg 1 tab po daily, He stopped taking Losartan because he feels it does not agree with him, He has a medbox Plan: Follow up 4 months Most recent electrolytes, Bun and Creatinine done on: Lab Results Component Value Date NA 139 02/19/2024 NA 137 11/15/2023 K 4.3 02/19/2024 K 4.5 11/15/2023 CL 96 02/19/2024 CL 97 11/15/2023 BUN 17 (H) 02/19/2024 BUN 18 (H) 11/15/2023 CREATININE 1.16 02/19/2024 CREATININE 1.01 11/15/2023 Will repeat patient advised to adhere to a low sodium diet, encouraged about medication compliance, counseled about weight loss. documented in this encounter Plan of Treatment Upcoming Encounters Date Type Department Care Team (Late st Contact Info) Description 01/14/2025 9:30 AM EST Clinical Support [facility] [address] [place] [address] Maria Isabel Elam, RN [address] [place] [address] 03/16/2025 1:00 PM EDT Office Visit [facility] [address] [place] [address] Pearl, Brielle [address] [place] [address] Scheduled Orders Name Type Priority Associated Diagnoses Orde r Schedule Comprehensive Metabolic Panel Lab Routine Essential hypertension Ordered: 12/21/2024 Lipid Panel, Standard Lab Routine Essential hypertension Type 2 diabetes mellitus without complication, without long-term current use of insulin ([facility]) Ordered: 12/21/2024 documented as of this encounter Procedures Procedure Name Priority Date/Time Associated Diagnosis Comments POCT GLUCOSE Routine 12/21/2024 1:40 PM EST Type 2 diabetes mellitus without complication, without long-term current use of insulin ([facility]) documented in this encounter Results * (ABNORMAL) POCT Glucose (12/21/2024 1:40 PM EST) [facility] Glucose Blood, POC 214(A) 60 - 200 mg/dL QC Media Lot # [id number] Lot# Expiration Date Blood Capillary blood specimen / Unknown 12/21/2024 1:40 PM EST Colton De Leon MD POINT OF CARE TEST EN TER/EDIT ORDERABLES Final Result documented in this encounter Visit Diagnoses Diagnosis Essential hypertension- Primary Unspecified essential hypertension Pulmonary emphysema, unspecified emphysema type (CMS/HCC) Type 2 diabetes mellitus without complication, without long-term current use of insulin (CMS/[facility]) Mixed hyperlipidemia Obesity (BMI 30-39.9) Dietary counseling Dietary surveillance and counseling Exercise counseling Routine physical examination Routine general medical examination at a health care facility Preventative health care Routine general medical examination at a health care facility Erectile dysfunction due to arterial insufficiency documented in this encounter Additional Health Concerns Assessment Noted Time PHQ-9 Depression Total Score: 0 05/11/20 24 1:30 PM EDT documented as of this encounter Care Teams Oral Hygienist Relationship Specialty Start Date End Date Colton Nelson MD [address] [place] [address] PCP - General Internal Medicine 05/04/20 documented as of this encounter
--- OUTSIDE RECORDS SUMMARY | 2024-12-29 12:02 | XMS_ITS | Encounter Summary ---
Author Organization [employer] [facility] Address [address] [place] [address] [address] [place] [address] Care Team Providers Care Story Analyst Name Role Phone Colton Nelson MD Primary Care Provide r Encounter Details Date Type Department Care Team (Latest Contact Info) Description 08/09/2019 Abstract [facility] CONVERSIONS Dental, Provider, DDS Social History [...] Description 01/14/2025 9:30 AM EST Clinical Support [facility] [address] [place] [address] Maria Isabel Elam RN [address] [place] [address] 03/16/2025 1:00 PM EDT Office Visit [facility] ADULT DENTAL [address] [place] [address] Xavier Kangaris [address] [place] [address] documented as of this encounter Visit Diagnoses Not on filedocumented in this encounter Care Teams Story Analyst Relationship Specialty Start Date End Date Colton Nelson MD [address] [place] [address] PCP - General Internal Medicine 05/04/20 documented as of this encounter
--- OUTSIDE RECORDS SUMMARY | 2024-12-29 12:02 | XMS_ITS | Encounter Summary ---
Author Organization [employer] Address [address] [facility] [facility] [address] [place] [address] Care Team Providers Care Orthodontic Band Maker Name Role Phone Colton Nelson MD Primary Care Provide r Reason for Visit * Reason Comments Med Refill Encounter Details Date Type Department Care Team ([facility] st Contact Info) Description 05/17/2024 Refill [facility] [address] [place], [place] [phone] Ashley Carrion, ANP [address] [place], [place] [phone] Lumbar disc herniation Social History Tobacco Use Types Packs/Day Years [...] 9:30 AM EST Clinical Support [facility] [address] [place] [phone] Maria Isabel Elam RN [address] [place] [address] 03/16/2025 1:00 PM EDT Office Visit [facility] AD[facility] D[facility] [address] [place] [address] Pearl, Brielle [address] [place] [address] documented as of this encounter Visit Diagnoses Diagnosis Lumbar disc herniation Displacement of lumbar intervertebral disc without myelopathy documented in this encounter Additional Health Concerns Assessment Noted Time PHQ-9 Depression Total Score: 0 05/11/20 24 1:30 PM EDT documented as of this encounter Care Teams Orthodontic Band Maker Relationship Specialty Start Date End Date Colton Nelson MD [address] [place] [id number] PCP - General Internal Medicine 05/04/20 documented as of this encounter
--- OUTSIDE RECORDS SUMMARY | 2024-12-29 12:02 | XMS_ITS | Clinical Summary ---
Author Organization [employer] Address [address] [place] [address] Care Team Providers Care Sheep Clipper Name Role Phone Colton Nelson MD Primary Care Provide r Allergies Active Allergy Reactions Criticality Noted Date Comments Hydrochlorothiazide Rash Low 11/09/2010 Lisinopril 06/20/2014 Olmesartan Unknown 11/09/2010 Medications naloxone (Narcan) 4 mg/0.1 mL nasal spray Administer 0.1 mL into affected nostril(s). Elon 0.1 milliliter by intranasal route in 1 nostril may repeat dose every 2-3 minutes as needed alternating nostrils with each dose Active lidocaine (Lidoderm) 5 % patch Place 1 patch on the skin if needed each day. Apply 1 patch by transdermal route every day (May wear up to 12 hours) as needed for pain Active hydrocortisone 1 % cream Apply topically every 12 (twelve) hours. Apply by topical route 2 times every day a thin layer to the affected area(s) Active aspirin 81 MG EC tablet take 1 tablet (81MG) by oral route every day Active gabapentin (Neurontin) 600 MG tablet Take 1 tablet by mouth every 8 (eight) hours. Active acetaminophen (Tylenol) 500 MG tablet Take 2 tablets by mouth if needed in the morning, at noon, in the evening, and at bedtime for pain. Active Spacer/Aero-Hold ing Chambers (OptiChamber Ebony) device q4h prn Acti ve hydrOXYzine HCl (Atarax) 25 MG tablet TAKE 1 TABLET BY MOUTH THREE TIMES DAILY NEEDED 20 tablet Active ketotifen (Alaway) 0.025 % ophthalmic solution INSTILL 1 DROP BY OPHTHALMIC ROUTE TWICE A DAY INTO THE AFFECTED EYE(S) 5 mL 5 Active glucose blood (OneTouch Ultra) test strip TEST BLOOD SUGAR TWICE A DAY 100 each Active OneTouch Delica Lancets 33G misc 1 vial before breakfast, before lunch, and before evening meal. TEST BLOOD SUGAR TWICE A DAY 100 each Active Blood Glucose Monitoring Suppl (ONE TOUCH ULTRA 2) w/Device kit 1 vial with breakfast, with lunch, and with evening meal. Test 1 times by intradermal route 2 times every day 1 kit Active Ventolin HFA 108 (90 Base) MCG/ACT inhaler INHALE 2 PUFFS BY MOUTH EVERY 4 TO 6 HOURS NEEDED FOR WHEEZING Active Advair HFA 115-21 MCG/ACT inhaler INHALE 2 PUFFS BY MOUTH TWICE DAILY FOR ASTHMA / COPD 12 g Active fluticasone (Flonase Allergy Relief) 50 MCG/ACT nasal sprayIndications :Seasonal allergies Administer 2 sprays into each nostril 2 times daily. Inhale 2 spray by intranasal route every day in each nostril 16 g 3 Active Testosterone 1.62 % gel APPLY 2 PUMPS TOPICALLY ONCE DAILY. ALTERNATE SHOULDER EVERY DAY. Active melatonin 5 MG tablet Take 2 tablets by mouth if needed at bedtime (sleep). Active metFORMIN (Glucophage) 1000 MG tabletIndication s:Type 2 diabetes mellitus without complication, without long-term current use of insulin ([facility]) TAKE 1 TABLET BY MOUTH TWICE DAILY IN THE MORNING AND IN THE EVENING WITH FOOD 180 tablet 1 Active simvastatin (Zocor) 10 MG tablet TAKE 1 TABLET BY MOUTH EVERY EVENING 90 tablet Active glipiZIDE XL (Glucotrol XL) 2.5 MG 24 hr tablet TAKE 1 TABLET BY MOUTH EVERY DAY IF BLOOD SUGAR > 150 IN THE MORNING (BEFORE BREAKFAST) 90 tablet 1 Active rOPINIRole (Requip) 4 MG tablet TAKE 1 TABLET BY MOUTH AT BEDTIME 30 tablet 5 024 Active omeprazole (PriLOSEC) [address] capsule TAKE 1 CAPSULE BY MOUTH EVERY MORNING 90 capsule 3 024 Active cholecalciferol VITAMIN D (Vitamin D-3) 50 MCG (1999) tablet TAKE 1 TABLET BY MOUTH EVERY MORNING 90 tablet 3 024 Active albuterol (2.5 MG/3ML) 0.083% nebulizer solutionIndicati ons:Chronic obstructive pulmonary disease, unspecified COPD type (CMS/HCC) INHALE 1 AMPULE USING A NEBULIZER EVERY 4 HOURS NEEDED FOR WHEEZING 90 mL 3 024 Active amLODIPine (Norvasc) 10 MG tabletIndication s:Primary hypertension TAKE 1 TABLET BY MOUTH EVERY MORNING 90 tablet 024 Active montelukast (Singulair) 10 MG tabletIndication s:Pulmonary emphysema, unspecified emphysema type (CMS/HCC) TAKE 1 TABLET BY MOUTH EVERY MORNING 90 tablet 024 Active oxyCODONE-acetam inophen (Percocet) 5-325 MG tabletIndication s:Lumbar disc herniation TAKE 1 TABLET BY MOUTH EVERY 6 HOURS NEEDED FOR PAIN MODERATE 20 tablet 025 Active chlorthalidone (Hygroton) 25 MG tabletIndication s:Essential hypertension TAKE 1 TABLET BY MOUTH EVERY MORNING 30 tablet 3 025 Active sildenafil (Viagra) 100 MG tabletIndication s:Erectile dysfunction due to arterial insufficiency Take 1 tablet (100 mg) by mouth if needed each day for erectile dysfunction. 15 tablet 3 025 Active tadalafil (Cialis) 10 MG tabletIndication s:Erectile dysfunction, unspecified erectile dysfunction type Take 1 tablet (10 mg) by mouth if needed each day for erectile dysfunction. 15 tablet 3 024 2024 Discontinued(T herapy completed) chlorthalidone (Hygroton) 25 MG tabletIndication s:Lumbar radiculopathy TAKE 1 TABLET BY MOUTH EVERY MORNING 30 tablet 3 024 2024 Discontinued oxyCODONE-acetam inophen (Percocet) 5-325 MG tabletIndication s:Lumbar disc herniation TAKE 1 TABLET BY MOUTH EVERY 6 HOURS NEEDED FOR MODERATE PAIN 20 tablet 024 2024 Discontinued Active Problems Problem Noted Date Diagnosed Date Routine physical examination 12/21/2024 Assessment & Plan (12/21/2024 1:31 PM EST): Examination today within normal limits Preventative health care 12/21/2024 Assessment & Plan (12/21/2024 1:30 PM EST): Colonoscopy: 09/13/2021 Dr Galvez PSA 08/06/2024: 4.[address] Landis Asthma 10/05/2024 Carpal tunnel syndrome on both sides 10/05/2024 Erectile dysfunction due to arterial insufficien cy 10/05/2024 Obesity (BMI 30-39.9) 10/05/2024 Assessment & Plan (12/21/2024 10:09 AM EST): Patient has been counseled and educated about diet and exercise. Personal goal of weight loss discussedPatient has comorbidity of: DM Dietary Recommendations: Fruits, vegetables, whole grains, protein foods, and fat-free or low-fat dairy products are healthy choices. Eat different types of protein foods in your diet. This can include seafood, lean meats, poultry, beans, peas, lentils, nuts, seeds, soy products, and eggs. Limit foods and beverages higher in added sugars, saturated fat, and sodium. Exercise Recommendations: At least 150 minutes of moderate-intensity physical activity per week, or an equivalent combination of moderate- and vigorous-intensity activity Pneumonia 10/05/2024 Incomplete tear of right rotator cuff 10/05/2024 Assessment & Plan (11/11/2024 11:23 AM EST): Under the care of ortho, received a steroid injection 10/11/2024 S/P arthroscopic knee surgery 10/05/2024 Ill-fitting dentures 07/30/2024 Tear of right rotator cuff 05/11/2024 Assessment & Plan (05/11/2024 1:49 PM EDT): Under the care of Ortho, last seen 04/26/2024 Partially edentulous mandible 03/30/2024 Pneumonia due to influenza A virus 03/04/2024 Assessment & Plan (03/04/2024 4:19 PM EDT): Now resolved Gingival bleeding 10/27/2023 ALLY on CPAP 09/18/2023 Assessment & Plan (01/27/2024 1:19 PM EST): ALLY well managed on CPAP C/o dry mouth with nasal mask, seen by Waterproofing Machine Operator 01/22/2024 who gave him a prescription for full face mask AIRFIT 30 Assessment & Plan (09/18/2023 8:22 AM EDT): ALLY well managed on CPAP C/o dry mouth with nasal mask, seen by Waterproofing Machine Operator 09/08/2023 who gave him a prescription for full face mask AIRFIT 30 Primary insomnia 09/18/2023 Assessment & Plan (01/27/2024 1:53 PM EST): Pt with c/o this for months, unable to sleep more than 3 hours. Sleep hygiene habits discussed last visit Started on Melatonin 5 mg po at bedtime last visit. Today he tells me that it helped but would like to know if we can increase the dose Plan: Increase melatonin to 10 mg po qhs Assessment & Plan (09/18/2023 8:54 AM EDT): Pt with c/o this for months, unable to sleep more than 3 hours. Sleep hygiene habits discussed Start Melatonin 5 mg po qhs Tooth fracture with loss of restorative material 08/11/2023 Periodontal disease 02/17/2023 Dental calculus 02/17/2023 Gingival recession, generalized 02/17/2023 Partial edentulism 02/17/2023 Elevated PSA 12/16/2022 Assessment & Plan (11/11/2024 11:21 AM EST): Under the care of Dr Landis Urology, last seen 09/24/2024 PSA 08/06/2024: 4.21 Assessment & Plan (08/12/2024 1:40 PM EDT): PSA 08/06/2024: 4.21 Pt is under the care of Dr Landis Urologist has a f/u appointment Assessment & Plan (12/16/2022 9:31 PM EST): Pt's PSA elevated up to 6.10 05/22/2022 Pt is under the care of Dr Landis Urologist has a f/u appointment Chronic pain of left knee 12/16/2022 Assessment & Plan (12/16/2022 9:32 PM EST): Pt is now s/p arthroscopic knee surgery , last seen by Ortho 07/19/2021 recommended Celebrex 200 mg po BID Normal oral exam 12/16/2022 Assessment & Plan (08/12/2024 1:27 PM EDT): Colonoscopy: 09/13/2021 Dr Galvez PSA 08/06/2024: 4.[address] Landis Assessment & Plan (12/16/2022 9:37 PM EST): Colonoscopy: 09/13/2021 Dr Galvez BPH without urinary obstruction 10/26/2022 Assessment & Plan (11/11/2024 11:21 AM EST): Under the care of Urology, last seen 09/24/2024 BRCA2 gene mutation positive 10/26/2022 Assessment & Plan (12/16/2022 9:33 PM EST): Genetic susceptibility to other malignant neoplasm (Z15.09). Pt tested positive 10/2019 . This was ordered based on his family Hx. Daughter tested positive This puts him at a 6% life time risk of male breast cancer and 15% of prostate cancer , and increase lifetime of pancreatic cancer risk and melanomas of both skin and eyes. He will need monthly self breast exam Yearly clinical breast exam' PSA screening Melanoma screen of both skin and eyes Previous visit he was referred to Dermatology, today he tells me he has yet to hear from the Director Of Labor And Delivery office, I have my MA once again to look jnto it Pancreatic screening guidelines are emerging Essential hypertension 10/26/2022 Assessment & Plan (12/21/2024 10:05 AM EST): Here for a f/u regarding his HTN [...] about medication compliance, counseled about weight loss. Assessment & Plan (11/11/2024 3:25 PM EST): Here for a f/u regarding his HTN BP uncontrolled. I reviewed his BP monitor at home and the average systolic was 151 He is on a regimen of: Norvasc 10 mg po daily, and Chlortalidone 25 mg 1/2 tab po daily, He stopped taking Losartan because he feels it does not agree with him, He has a medbox Plan: [facility] Chlortalidone to 1 tab of 25 mg po daily Follow up 3 months Most recent electrolytes, Bun and Creatinine done on: Lab Results Component Value Date NA 139 02/19/2024 NA 137 11/15/2023 K 4.3 02/19/2024 K 4.5 11/15/2023 CL 96 02/19/2024 CL 97 11/15/2023 BUN 17 (H) 02/19/2024 BUN 18 (H) 11/15/2023 CREATININE 1.16 02/19/2024 CREATININE 1.01 11/15/2023 02/19/2024 were wnl. patient advised to adhere to a low sodium diet, encouraged about medication compliance, counseled about weight loss. Assessment & Plan (08/12/2024 1:42 PM EDT): Here for a f/u regarding his HTN BP today elevated, he reports BP readings at home are in the 130s systolic He is on a regimen of: Norvasc 10 mg po daily, and Chlortalidone, He stopped taking Losartan because he feels it does not agree with him, He has a medbox Plan: Continue current regimen for now, I asked him to bring his BP monitor to compare BP readings Follow up 3 months Most recent electrolytes, Bun and Creatinine done on: 02/19/2024 were wnl. patient advised to adhere to a low sodium diet, encouraged about medication compliance, counseled about weight loss. Assessment & Plan (05/11/2024 1:45 PM EDT): Here for a f/u regarding his HTN He is on a regimen of: Norvasc 10 mg po daily, and Chlortalidone, He stopped taking Losartan because he feels it does not agree with him, he is very vague He has a medbox Plan: Continue current regimen Most recent electrolytes, Bun and Creatinine done on: 02/13/2023 were wnl. patient advised to adhere to a low sodium diet, encouraged about medication compliance, counseled about weight loss. Assessment & Plan (03/04/2024 4:22 PM EDT): Today his blood pressure is high, he forgot to take his medication, I advise not to miss any dose of medications, low Na diet and to f/u with PCP Assessment & Plan (08/07/2023 2:53 PM EDT): Here for a f/u regarding his HTN He is on a regimen of: Norvasc 10 mg po daily, and Chlortalidone, He stopped taking Losartan because he feels it does not agree with him, he is very vague He has a medbox Plan: Continue current regimen Most recent electrolytes, Bun and Creatinine done on: 02/13/2023 were wnl. patient advised to adhere to a low sodium diet, encouraged about medication compliance, counseled about weight loss. Assessment & Plan (04/22/2023 1:27 PM EDT): Here for a f/u regarding his HTN He is on a regimen of: Norvasc 10 mg po daily, and Chlortalidone, He stopped taking Losarta because he feels it does not agree with him, he is very vague He has a medbox Plan: Continue current regimen Most recent electrolytes, Bun and Creatinine done on: 02/13/2023 were wnl. patient advised to adhere to a low sodium diet, encouraged about medication compliance, counseled about weight loss. Assessment & Plan (12/16/2022 9:27 PM EST): Here for a f/u regarding his HTN He is on a regimen of: Norvasc 10 mg po daily, Losartan 100 mg po daily and Chlortalidone, apparently he was switched to combo Losartan/Hctz and developed intense pruritus, reason why Dr Maynard discontinued this and was switched to Chlortalidone instead He has a medbox Plan: Continue current regimen Most recent electrolytes, Bun and Creatinine done on: 09/19/2021 were wnl. will repeat prior to next visit patient advised to adhere to a low sodium diet, encouraged about medication compliance, counseled about weight loss. Male hypogonadism 10/26/2022 Assessment & Plan (08/12/2024 1:26 PM EDT): Under the care of Urology, last note 02/03/2024 On Testosterone Gel prescribed by Dr. Landis Assessment & Plan (12/16/2022 9:38 PM EST): Under the care of Urology Cervical spondylosis 05/13/2018 Assessment & Plan (12/16/2022 9:35 PM EST): Pt s/p right C6-C7 decompressive foraminotomy on Mar [address] Fay Daniels May continue Percocet 5/325 Vitamin D deficiency 04/19/2015 Atherosclerosis of coronary artery 08/14/2012 Chronic obstructive lung disease 08/14/2012 Assessment & Plan (12/21/2024 10:06 AM EST): Pt last seen by his Waterproofing Machine Operator Dr Denney 11/11/2024 He is on Advair HFA 2 puffs BID and instructed to use Albuterol PRN only Assessment & Plan (11/11/2024 11:25 AM EST): Pt last seen by his Waterproofing Machine Operator Dr Denney 11/11/2024 He is on Advair HFA 2 puffs BID and instructed to use Albuterol PRN only Assessment & Plan (05/11/2024 1:44 PM EDT): Pt last seen by his Waterproofing Machine Operator Dr Denney 01/22/2024 He is on Advair HFA 2 puffs BID and instructed to use Albuterol PRN only Recently admitted to Hospital for COPD exacerbation, doing better Assessment & Plan (03/04/2024 4:20 PM EDT): Patient educated to avoid triggers C/w current inhaler regimen Albuterol solution refill done today Continue to follow with pulmonology Assessment & Plan (01/27/2024 1:19 PM EST): Pt here recently seen by his Waterproofing Machine Operator Dr Denney 01/22/2024 He is on Advair HFA 2 puffs BID and instructed to use Albuterol PRN only Assessment & Plan (09/18/2023 8:20 AM EDT): Pt here with c/o asthma acting up recently , c/o more wheezing . Recently seen by his Waterproofing Machine Operator Dr Denney 09/08/2023 who gave him a letter so the rugs in his apartment could be removed He discontinued his Flovent and started him on Advair HFA 2 puffs BID and instructed to use Albuterol PRN only Assessment & Plan (12/16/2022 9:33 PM EST): Pt is under the care of Dr. Denney on a regimen of Montelukast 10 mg daily Combivent respimat and Advair Diskus 500/50 No recent exacerbation Diabetes mellitus, type II 08/14/2012 Assessment & Plan (12/21/2024 10:06 AM EST): Pt here for a f/u DM remains [...] check your feet on a daily basis Assessment & Plan (11/11/2024 3:18 PM EST): Pt here for a f/u DM remains [...] check your feet on a daily basis Assessment & Plan (08/12/2024 1:25 PM EDT): Pt here for a f/u DM remains controlled He is on a regimen of: Metformin 1000 mg po BID and Glipizide XL 2.5 mg po daily Hgb A1c 08/06/2024: 6.6 Eye exam was last done on: 03/30/2019 Microalbumin checked on: 04/19/2022 was: 0.7 Pt is not on an ARB Foot check risk of zero Pt reports compliance with Asa 81 mg po daily Pt advised to: adhere to diabetic diet check your blood sugars regularly check your feet on a daily basis Assessment & Plan (05/11/2024 1:50 PM EDT): Pt here for a f/u DM remains controlled He is on a regimen of: Metformin 1000 mg po BID and Glipizide XL 2.5 mg po daily Hgb A1c 03/04/2024: 6.7 Eye exam was last done on: 03/30/2019 Microalbumin checked on: 04/19/2022 was: 0.7 Pt is not on an ARB (even though in the past he reported an allergy to ARB) Foot check risk of zero Pt reports compliance with Asa 81 mg po daily Pt advised to: adhere to diabetic diet check your blood sugars regularly check your feet on a daily basis Assessment & Plan (03/04/2024 4:21 PM EDT): Stable continue to follow with PCP Assessment & Plan (01/27/2024 3:31 PM EST): Pt here for a f/u DM remains controlled He is on a regimen of: Metformin 1000 mg po BID and Glipizide XL 2.5 mg po daily Hgb A1c ordered Eye exam was last done on: 03/30/2019 Microalbumin checked on: 04/19/2022 was: 0.7 Pt is not on an ARB (even though in the past he reported an allergy to ARB) Foot check risk of zero Pt reports compliance with Asa 81 mg po daily Pt advised to: adhere to diabetic diet check your blood sugars regularly check your feet on a daily basis Assessment & Plan (08/07/2023 2:52 PM EDT): Pt here for a f/u DM remains controlled He is on a regimen of: Metformin 1000 mg po BID and Glipizide XL 2.5 mg po daily Hgb A1c 08/07/2023 was: 6.5 Eye exam was last done on: 03/30/2019 Microalbumin checked on: 04/19/2022 was: 0.7 Pt is not on an ARB (even though in the past he reported an allergy to ARB) Foot check risk of zero Pt reports compliance with Asa 81 mg po daily Pt advised to: adhere to diabetic diet check your blood sugars regularly check your feet on a daily basis Assessment & Plan (04/22/2023 1:28 PM EDT): Pt here for a f/u DM remains controlled He is on a regimen of: Metformin 1000 mg po BID and Glipizide XL 2.5 mg po daily Hgb A1c 04/22/2023 was: 6.2 Eye exam was last done on: 03/30/2019 Microalbumin checked on: 04/19/2022 was: 0.7 Pt is not on an ARB (even though in the past he reported an allergy to ARB) Foot check risk of zero Pt reports compliance with Asa 81 mg po daily Pt advised to: adhere to diabetic diet check your blood sugars regularly check your feet on a daily basis Assessment & Plan (12/17/2022 10:46 AM EST): Pt here for a f/u DM remains controlled He is on a regimen of: Metformin 1000 mg po BID and Glipizide XL 2.5 mg po daily Hgb A1c 12/17/2022 was 6.1 Eye exam was last done on: 03/30/2019 Microalbumin checked on: 04/19/2022 was: 0.7 Pt is not on an ARB (even though in the past he reported an allergy to ARB) Foot check risk of zero Pt reports compliance with Asa 81 mg po daily Pt advised to: adhere to diabetic diet check your blood sugars regularly check your feet on a daily basis Gastroesophageal reflux disease 08/14/2012 Hyperlipidemia 08/14/2012 Assessment & Plan (12/21/2024 10:08 AM EST): Pt here for a f/u Patient with [...] diet, counseled and educated about diet and exercise, Patient encouraged to come up with a personal goal for weight loss. Assessment & Plan (04/22/2023 1:16 PM EDT): Pt here for a f/u Patient with elevated lipids. Most recent lipid profile from: 02/13/2023 shows a total cholesterol of: 130 triglycerides of: 97 HDL of: 59 and LDL of: 53 Currently on a regimen of: Simvastatin 10 mg po qhs Plan: continue with current regimen. advised to try to adhere to a low cholesterol diet, counseled and educated about diet and exercise, Patient encouraged to come up with a personal goal for weight loss. Assessment & Plan (12/16/2022 9:28 PM EST): Pt here for a f/u Patient with elevated lipids. Most recent lipid profile from: 04/19/2022 shows a total cholesterol of: 152 triglycerides of: 85 HDL of: 60 and LDL of: 75 Currently on a regimen of: Simvastatin 10 mg po qhs Plan: continue with current regimen. advised to try to adhere to a low cholesterol diet, counseled and educated about diet and exercise, Patient encouraged to come up with a personal goal for weight loss. 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 of degenerative disk disease as well as slight neural foramina stenosis at the level of L4-L5 and L5-S1. In the past he was on MS contin and Percocet, but right now he is no longer on MS contin. Under the care of [facility]. Last note 08/2023 Pt requesting a handycap placard Assessment & Plan (08/07/2023 2:58 PM EDT): Pt with a Hx. of degenerative disk disease as well as slight neural foramina stenosis at the level of L4-L5 and L5-S1. In the past he was on MS contin and Percocet, but right now he is no longer on MS contin. Of note pt has been seen in the past at [facility]. Pt requesting a handycap placard Assessment & Plan (12/16/2022 9:34 PM EST): Pt with a Hx. of degenerative disk disease as well as slight neural foramina stenosis at the level of L40L5 and L5-S1. In the past he was on MS contin and Percocet, but right now he is no longer on MS contin. Of note pt has been seen in the past at [facility]. Restless legs 08/14/2012 Assessment & Plan (12/16/2022 9:37 PM EST): Cont Ropinirole to 4 mg at bedtime Carpal tunnel syndrome 05/07/2012 Assessment & Plan (12/17/2022 10:24 AM EST): S/p CTR surgery 12/16/2022 Resolved Problems Problem Noted Date Diagnosed Date Resolved Date Arthritis of left acromioclavicular joint 10/05/2024 12/21/2024 Contusion 10/05/2024 12/21/2024 Insufficiency fracture of femur 10/05/2024 12/21/2024 MCL sprain of left knee 10/05/202411/25 Medial meniscus tear 10/05/2024 025 Osteoarthritis of left knee 10/05/2024 12/21/2024 Left shoulder tendonitis 10/05/2024 Tendonitis of left rotator cuff 10/05/2024 12/21/2024 Sprain of left little finger 10/05/2024 12/21/2024 Encounters Date Type Department Care Team Description 12/21/2024 1:30 PM EST Office Visit [address] [phone] Colton Nelson MD Essential hypertension (Primary Dx); Pulmonary emphysema, unspecified emphysema type (CMS/HCC); Type 2 diabetes mellitus without complication, without long-term current use of insulin (CMS/HCC); Mixed hyperlipidemia; Obesity (BMI 30-39.9); Dietary counseling; Exercise counseling; Routine physical examination; Preventative health care; Erectile dysfunction due to arterial insufficiency 12/21/2024 Travel 12/15/2024 Refill [facility] [address] [place], [place] [id number] Colton Nelson MD Lumbar disc herniation 12/10/[address] [address] Colton Nelson MD Chart Prep 12/09/2024 Patient Outreach [address] [address] Colton Nelson MD Pre-visit Planning (SDOH Screening negative and Tobacco screening negative) 11/18/2024 Travel 11/18/2024 Telephone [facility] [address] [place] [address] Maria Isabel Elam RN 11/18/2024 Telephone [facility] [address] [place] [phone] Colton Nelson MD Appointment Request 11/12/2024 Refill [facility] [address] [place] [address] Colton Nelson MD Lumbar disc herniation 11/11/2024 3:00 PM EST Office Visit [facility] [address] [place] [phone] Colton Nelson MD Essential hypertension (Primary Dx); Type 2 diabetes mellitus without complication, without long-term current use of insulin (CMS/HCC); BPH without urinary obstruction; Elevated PSA; Incomplete tear of right rotator cuff, unspecified whether traumatic; Pulmonary emphysema, unspecified emphysema type (CMS/HCC); Lumbar radiculopathy 11/11/2024 Travel 11/10/2024 Telephone [facility] [address] [place] [address] Colton Nelson MD Nurse Triage 11/05/2024 Telephone [facility] [address] [place] [address] Colton Nelson MD Chart Prep 10/25/2024 Refill [facility] [address] [place] [address] Colton Nelson MD Primary hypertension; Pulmonary emphysema, unspecified emphysema type (CMS/HCC) 10/19/2024 Refill [facility] [address] [place] [address] Colton Nelson MD Lumbar disc herniation 10/07/2024 Refill [facility] [address] [place] [address] Colton Nelson MD Chronic obstructive pulmonary disease, unspecified COPD type (CMS/HCC) 10/05/2024 9:00 AM EST Office Visit [facility] [address] [place] [address] Jean Younger, CAROLYNN Tooth fracture with loss of restorative material (Primary Dx) from Last 3 Months Immunizations Name Administration Dates Next Due Influenza High-dose Quadriva lent Preservative Free 09/05/2021 Influenza injectable quadriv alent IIV4 with preservative 08/21/2017,08/15/2016,11/06/2015 Influenza injectable quadriv alent preservative free 08/24/2020,08/23/2019,11/25/2018 Influenza, High Dose Seasona l, Preservative Free 08/12/2024 Influenza, IIV3, injectable 10/19/2014, 0 Influenza, Split (incl. david fied surface antigen) 08/29/2015,08/25/2013,08/14/2012 Moderna Covid-19 Vaccine 12+ 10/16/2021,02/29/20 21,01/31/2021 Pfizer Covid-19 Vaccine 12+ 08/12/2024 Pneumococcal Conjugate PCV 13 12/04/2015 Pneumococcal Polysaccharide PPSV23 12/04/2015,,09/24/1996 TD (adult), 2 Lf tetanus tox oid, preservative free, adsorbed 05/10/2011 Td (adult), 5 Lf tetanus tox oid, preservative free, adsorbed 10/14/2013 Tdap 11/25/2018 Zoster, Recombinant 07/24/2023,05/22/2023 Zoster, live 12/04/2015 Social History Tobacco Use Types Packs/Day Years Used Date Smoking Tobacco: Former Passive Smoke Exposure: Past Smokeless Tobacco: Never Tobacco Cessation:Counseling Given: Not Answered Alcohol Use Standard Drinks/Week Comments Yes 0 [...] Orientation Straight 09/23/2022 10 :14 AM EDT Last Filed Vital Signs Vital Sign Reading [...] Mass Index 31.76 12/21/2024 1:27 PM EST Plan of Treatment Upcoming Encounters Date Type Department Care Team (Late st Contact Info) Description 01/14/2025 9:30 AM EST Clinical Support [facility] [address] [place] [address] Maria Isabel Elam RN [address] [place] [address] 03/16/2025 1:00 PM EDT Office Visit [facility] [address] [place] [address] Pearl Brielle [address] [place] [address] Health Maintenance Due Date Last Done Comments Eye Exam 1955 RSV Patients and Patients Aged 60 years or older (1 - 1-dose 75+ series) 2022 Diabetes: Urine Protein Screening 04/19/2023 04/19/2022, 02/12/2021, 12/24/2019 Lipid Panel 02/14/2024 02/13/2023, 03/25, 09/19/2021, Additional history exists Dental Oral Exam 03/11/2025 09/09/2024, 02/17/2023 Dental Prophylaxis 03/15/2025 09/13/2024, 1 12/28/2022, 02/17/2023 Depression Screening 05/11/2025 05/11/2024, 05/11/20 24 Diabetes: Hemoglobin A1C 05/12/202511/11/ 024, 08/12/2024, 08/06/2024, Additional history exists Diabetes: Foot Exam 08/12/2025 08/12/2024, 08/12/2024, 08/12/2024, Additional history exists Dental X-Ray: Bitewings 09/10/2025 09/09/2024, 02/17 Alcohol/Substance Use Screening 11/11/2025 11/11/2024 SDOH Screening 12/09/2025 12/09/2024 Tobacco Screening 12/21/2025 12/21/2024 Dental X-Ray: Full Mouth 02/18/2026 02/17/2023 DTaP/Tdap/Td Vaccines (2 - Td or Tdap) 11/25/2028 11/25/2018, 10/14/2013, 05/10/2011 Pneumococcal Vaccine: 50+ Years Completed 12/04/2015, 12/04/2015, 02/05/2013, Additional history exists Colonoscopy Discontinued 08/18/2020, 08/18/2020 Colorectal Cancer Screening Discontinued Hepatitis C Screening Completed 04/19/2022 Zoster Vaccines Completed 07/24/2023, 04/25, 12/04/2015 COVID-19 Vaccine Completed 08/12/2024, , 02/28/2021, Additional history exists Influenza Vaccine Completed 08/12/2024, , 08/24/2020, Additional history exists CT Colonography Discontinued FIT DNA/Cologuard Discontinued FIT Discontinued FOBT Discontinued HIB Vaccines Aged Out No longer eligi ble based on patient's age to complete this topic HPV Vaccines Aged Out No longer eligi ble based on patient's age to complete this topic Hepatitis A Vaccines Aged Out No long er eligible based on patient's age to complete this topic Hepatitis B Vaccines Aged Out No long er eligible based on patient's age to complete this topic IPV Vaccines Aged Out No longer eligi ble based on patient's age to complete this topic Meningococcal Vaccine Aged Out No kristen julissa eligible based on patient's age to complete this topic RSV under 20 months Aged Out No longe r eligible based on patient's age to complete this topic Rotavirus Vaccines Aged Out No longer eligible based on patient's age to complete this topic Sigmoidoscopy Discontinued Procedures Procedure Name Priority Date/Time Associated Diagnosis Comments POCT GLUCOSE Routine 12/21/2024 1:40 PM EST Type 2 diabetes mellitus without complication, without long-term current use of insulin (CMS/HCC) POCT GLYCATED HEMOGLOBIN, TOTAL Routine 11/11/2024 2:57 PM EST Type 2 diabetes mellitus without complication, without long-term current use of insulin (CMS/HCC) POCT GLUCOSE Routine 11/11/2024 2:55 PM EST Type 2 diabetes mellitus without complication, without long-term current use of insulin (CMS/HCC) ADJUST PARTIAL DENTURE - MANDIBULAR Routine 10/05/2024 9:00 AM EST ADJUNCTIVE GENERAL SERVICES - PROFESSIONAL VISITS - CASE PRESENTATION, SUBSEQUENT TO DETAILED AND EXTENSIVE TREATMENT PLANNING Routine 10/05/2024 9:00 AM EST 21 DOBL RESTORATIVE - RESIN-BASED COMPOSITE RESTORATIONS - DIRECT - RESIN-BASED COMPOSITE - FOUR OR MORE SURFACES, POSTERIOR Routine 10/05/2024 9:00 AM EST Full PROPHYLAXIS - ADULT Routine 09/13/2024 1:00 PM EDT Dental calculus BITEWINGS - 4 RADIOGRAPHIC IMAGES Routine 09/09/2024 3:30 PM EDT PERIODIC ORAL EVALUATION - ESTABLISHED PATIENT Routine 09/09/2024 3:30 PM EDT DIAGNOSTIC - DIAGNOSTIC IMAGING - INTRAORAL - COMPREHENSIVE SERIES OF RADIOGRAPHIC IMAGES Routine 02/17/2023 10:00 AM EDT Periodontal disease Dental calculus LIPID PANEL WITH REFLEX TO DIRECT LDL Routine 02/13/2023 9:42 AM EDT Mixed hyperlipidemia ZZZ HISTORICAL HEPATITIS C AB W/REFL TO HCV RNA, QN, PCR Routine 04/19/2022 8:52 AM EDT ALBUMIN, RANDOM URINE W/CREATININE Routine 04/19/2022 8:52 AM EDT HM COLONOSCOPY Routine 08/18/2020 from Last 3 Months or Most Recently Relevant to Health Maintenance Results * (ABNORMAL) POCT Glucose (12/21/2024 1:40 PM EST) Only the most recent of2 resultswithin the time period is included. Glucose Blood, POC 214(A) 60 - 200 mg/dL QC Media Lot # [id number] Lot# Expiration Date 025 Blood Capillary blood specimen / Unknown 12/21/2024 1:40 PM EST Colton De Leon MD POINT OF CARE TEST EN TER/EDIT ORDERABLES Final Result * (ABNORMAL) POCT HGB A1C (11/11/2024 2:57 PM EST) Hemoglobin A1C 6.8(A) 4.0 - 6.0 % QC Media Lot # [id number] Lot# Expiration Date 026 Blood 11/11/2024 2:57 PM EST Colton De Leon MD POINT OF CARE TEST EN TER/EDIT ORDERABLES Final Result * Lipid Panel with Reflex to Direct LDL (02/13/2023 9:42 AM EDT) Cholesterol, Total 130 <200 mg/dL [facility] HDL Cholesterol 59 > OR = 40 mg/dL [facility] Triglycerides 97 <150 mg/dL [facility] LDL Cholesterol 53 mg/dL (calc) [facility] Comment: Reference range: <100 Desirable range <100 mg/dL for primary prevention; ?? <70 mg/dL for patients with CHD or diabetic patients with > or = 2 CHD risk factors. LDL-C is now calculated using the Diana calculation, which is a validated novel method providing better accuracy than the Friedewald equation in the estimation of LDL-C. Titus SS et al. UZAIR. 2013;310(19): 7239-9733 (http://education.Get Me Listed/faq/GON915) Chol/HDLC Ratio 2.2 <5.0 (calc) [facility] Non-HDL Cholesterol 71 <130 mg/dL (calc) [facility] Comment: For patients with diabetes plus 1 major ASCVD risk factor, treating to a non-HDL-C goal of <100 mg/dL (LDL-C of <70 mg/dL) is considered a therapeutic option. 02/13/2023 9:42 AM EDT 02/13/2023 9:42 AM EDT Narrative [facility] - 02/13/2023 10:50 PM EDT FASTING:UNKNOWN FASTING: UNKNOWN Colton De Leon MD LAB BLOOD ORDERABLES Final Result [facility] [address], [place] [address] [facility] [address] [place] [address] * HEPATITIS C AB W/REFL TO HCV RNA, QN, PCR (04/19/2022 8:52 AM EDT) HEPATITIS C ANTIBODY NON-REACT [place] NON-REACT [place] [facility] INDEX 0.02 <1.00 [facility] Comment: ?? HCV antibody was non-reactive. There is no laboratory ?? evidence of HCV infection. ?? In most cases, no further action is required. However, if recent HCV exposure is suspected, a test for HCV RNA (test code 01766) is suggested. ?? For additional information please refer to http://education.Plaxica/faq/YMS41h1 (This link is being provided for informational/ educational purposes only.) ?? 04/19/2022 8:52 AM EDT Colton De Leon MD HISTORICAL/NON ORDERA BLE LABS Final Result [facility] [address] * ALBUMIN, RANDOM URINE W/CREATININE (04/19/2022 8:52 AM EDT) Microalbumin Urine 0.7 See Note: mg/dL [facility] Comment: Reference Range: ?? Reference Range Not established Microalb/Creat Ratio 5 <30 mcg/mg creat [facility] Comment: ?? The ADA defines abnormalities in albumin excretion as follows: ?? Albuminuria Category ?Result (mcg/mg creatinine) ?? Normal to Mildly increased ?? <30 Moderately increased ? 30-299 ?? Severely increased ? > OR = 300 ?? The ADA recommends that at least two of three specimens collected within a 3-6 month period be abnormal before considering a patient to be within a diagnostic category. Creatinine, Urine 145 20 - 320 mg/dL [facility] 04/19/2022 8:52 AM EDT us Colton De Leon MD LAB URINE ORDERABLES Final Result [facility] [address] * Colonoscopy (08/18/2020) Colonoscopy Normal Normal 08/18/2020 Jacquelin Caballero - 08/18/2020 9:26 AM EDT Recommended 10 year follow up Historical Provider HEALTH MAINTENANCE Final Result from Last 3 Months or Most Recently Relevant to Health Maintenance Insurance [facility] - [facility] Advance Directives Documents on File Type Date Recorded Patient Price Analyst Expl anation Advance Directives and Living Will 02/06/2024 8:49 AM Health Care Proxy Care Teams Sheep Clipper Relationship Specialty Start Date End Date Colton Nelson MD [address] [place] [address] PCP - General Internal Medicine 05/04/20
--- OUTSIDE RECORDS SUMMARY | 2024-12-29 12:02 | XMS_ITS | Encounter Summary ---
Author Organization [employer] Address [address] 7[address] [place] [address] Care Team Providers Care Client Technologies Specialist Name Role Phone Colton Nelson MD Primary Care Provide r Reason for Visit * Reason Comments Med Refill Encounter Details Date Type Department Care Team (Late Contact Info) Description 04/09/2023 Refill [facility] & [facility]S [address] [place], [place] [phone] Colton Nelson MD [address] [place] [address] Social History Tobacco Use Types Packs/Day Years [...] Description 01/14/2025 9:30 AM EST Clinical Support [facility] [address] [place] [address] Maria Isabel Elam, RN [address] [place] [address] 03/16/2025 1:00 PM EDT Office Visit [facility] ADULT [facility]ENT[facility] [address] [place] [address] Brielle Kang [address] [place] [address] documented as of this encounter Visit Diagnoses Not on filedocumented in this encounter Additional Health Concerns Assessment Noted Time PHQ-9 Depression Total Score: 0 12/17/19 10:18 AM EST documented as of this encounter Care Teams Client Technologies Specialist Relationship Specialty Start Date End Date Colton Nelson MD [address] [place] [address] PCP - General Internal Medicine 05/04/20 documented as of this encounter
--- OUTSIDE RECORDS SUMMARY | 2024-12-29 12:02 | XMS_ITS | Encounter Summary ---
Author Organization [employer] Address [address] [place] [address] Care Team Providers Care Oracle Fusion Developer Name Role Phone Colton Nelson MD Primary Care Provide r Reason for Visit * Reason Onset Date Comments Appointment Request 12/23/2023 Encounter Details Date Type Department Care Team ([facility] st Contact Info) Description 12/23/2023 Telephone [facility] [address] [place], [place] [phone] Colton Nelson MD [address] [place], [place] [phone] Appointment Request Social History Tobacco Use Types [...] Miscellaneous Notes * Telephone Encounter - Sawyer Jamin - 12/23/2023 11:20 AM EST Tc from pt requesting call back regarding cancelled appt with pcp 12/18/23. Please contact pt at [phone]. documented in this encounter Plan of Treatment Upcoming Encounters Date Type Department Care Team (Late st Contact Info) Description 01/14/2025 9:30 AM EST Clinical Support [facility] [address] [place] [address] Maria Isabel Elam RN [address] [place] [address] 03/16/2025 1:00 PM EDT Office Visit [facility] [address] [place] [address] Pearl, Brielle [address] [place] [address] documented as of this encounter Visit Diagnoses Not on filedocumented in this encounter Additional Health Concerns Assessment Noted Time PHQ-9 Depression Total Score: 0 12/17/19 23 10:18 AM EST documented as of this encounter Care Teams Oracle Fusion Developer Relationship Specialty Start Date End Date Colton Nelson MD [address] [place] [address] PCP - General Internal Medicine 05/04/20 documented as of this encounter
--- OUTSIDE RECORDS SUMMARY | 2024-12-29 12:02 | XMS_ITS | Encounter Summary ---
Author Organization [employer] Address [address] [facility] 7t [place] [address] Care Team Providers Care Recooperer Name Role Phone Colton Nelson MD Primary Care Provide r Encounter Details Date Type Department Care Team (Late Contact Info) Description 04/03/2023 Abstract [facility] [address] [place] [address] Colton Nelson MD [address] [place] [address] Social History Tobacco Use Types Packs/Day Years [...] Description 01/14/2025 9:30 AM EST Clinical Support [facility] [address] [place] [address] [place] [address] Maria Isabel Elam RN [address] [place] [address] 03/16/2025 1:00 PM EDT Office Visit [facility] [address] [place] [address] Brielle Kang [address] [place] [address] documented as of this encounter Procedures Procedure Name Priority Date/Time Associated Diagnosis Comments HM COLONOSCOPY Routine 08/18/2020 documented in this encounter Results * Hm Colonoscopy (08/18/2020) Colonoscopy Normal Normal 08/18/2020 Narrative Jacquelin Chiu - 08/18/2020 9:26 AM EDT Recommended 10 year follow up Historical Provider HEALTH MAINTENANCE Final Result documented in this encounter Visit Diagnoses Not on filedocumented in this encounter Additional Health Concerns Assessment Noted Time PHQ-9 Depression Total Score: 0 12/17/19 23 10:18 AM EST documented as of this encounter Care Teams Recooperer Relationship Specialty Start Date End Date Colton Nelson MD [address] [place] [address] PCP - General Internal Medicine 05/04/20 documented as of this encounter
--- OUTSIDE RECORDS SUMMARY | 2024-12-29 12:02 | XMS_ITS | Encounter Summary ---
Author Organization [employer] [facility] Address [address] [place] [address] 7t [place] [address] Care Team Providers Care Senior Hydrogeologist Name Role Phone Colton Nelson MD Primary Care Provide r Encounter Details Date Type Department Care Team (Latest Contact Info) Description 12/13/2020 Abstract [facility] CONVERSIONS Dental, Provider, DDS Social History Tobacco [...] Description 01/14/2025 9:30 AM EST Clinical Support [facility] [address] [place] [address] Maria Isabel Elam RN [address] [place] [address] 03/16/2025 1:00 PM EDT Office Visit [facility] ADULT DENTAL [address] [place] [address] Xavier Kangaris [address] [place] [address] documented as of this encounter Visit Diagnoses Not on filedocumented in this encounter Care Teams Senior Hydrogeologist Relationship Specialty Start Date End Date Colton Nelson MD [address] [place] [address] PCP - General Internal Medicine 05/04/20 documented as of this encounter
--- OUTSIDE RECORDS SUMMARY | 2024-12-29 12:02 | XMS_ITS | Encounter Summary ---
Author Organization [employer] Address [address] 7[address] [place] [address] Care Team Providers Care Security Guards Dispatcher Name Role Phone Colton Nelson MD Primary Care Provide r Reason for Visit * Reason Comments Med Refill Encounter Details Date Type Department Care Team ([facility] st Contact Info) Description 12/15/2024 Refill [facility] & PEDS [address] [place], [place] [phone] Colton Nelson MD [address] [place] [address] Lumbar disc herniation Social History Tobacco Use [...] the past 12 months, has t he [employer], gas, oil or water company threatened to [...] encounter Miscellaneous Notes * Telephone Encounter - Claudia Parekh RN - 12/16/2024 10:00 AM EST [employer] checked. Pt last picked up 5 day supply of percocet 11/19/24. Scheduled to see PCP 12/21/24. Queued refill. documented in this encounter Plan of Treatment Upcoming Encounters Date Type Department Care Team (Late st Contact Info) Description 01/14/2025 9:30 AM EST Clinical Support [facility] [address] [place] [address] Maria Isabel Elam RN [address] [place] [address] 03/16/2025 1:00 PM EDT Office Visit [facility] ADULT DENTAL [address] [place] [address] Brielle Kang [address] [place] [address] documented as of this encounter Visit Diagnoses Diagnosis Lumbar disc herniation Displacement of lumbar intervertebral disc without myelopathy documented in this encounter Additional Health Concerns Assessment Noted Time PHQ-9 Depression Total Score: 0 05/11/20 24 1:30 PM EDT documented as of this encounter Care Teams Security Guards Dispatcher Relationship Specialty Start Date End Date Colton Nelson MD [address] [place] [address] PCP - General Internal Medicine 05/04/20 documented as of this encounter
--- OUTSIDE RECORDS SUMMARY | 2024-12-29 12:02 | XMS_ITS | Encounter Summary ---
Author Organization [employer] Address [address] 7[address] [place] [address] Care Team Providers Care Plastics Engineering Teacher Name Role Phone Colton Nelson MD Primary Care Provide r Reason for Visit * Reason Comments Med Refill Encounter Details Date Type Department Care Team ([facility] st Contact Info) Description 04/16/2024 Refill [facility] [address] [place], [place] [phone] Constance Wiggins MD [address] [place], [place] [phone] Chronic obstructive pulmonary disease, unspecified COPD type [...] 9:30 AM EST Clinical Support [facility] [address] [place] [address] Maria Isabel Elam, ELEAZAR [address] [place] [address] 03/16/2025 1:00 PM EDT Office Visit [facility] AD[facility] [address] [place] [address] Pearl, Brielle [address] [place] [address] documented as of this encounter Visit Diagnoses Diagnosis Chronic obstructive pulmonary disease, unspecified COPD type (CMS/HCC) documented in this encounter Additional Health Concerns Assessment Noted Time PHQ-9 Depression Total Score: 0 12/17/19 23 10:18 AM EST documented as of this encounter Care Teams Plastics Engineering Teacher Relationship Specialty Start Date End Date Colton Nelson MD [address] [place] [address] PCP - General Internal Medicine 05/04/20 documented as of this encounter
[2024-12-29 13:35] LABS: Alanine Aminotransferase 14 U/L (0-40); Albumin Level 4.1 g/dL (3.5-5.0); Alkaline Phosphatase 81 U/L (39-117); Anion Gap 12 (12-20); Aspartate Amino Transferase 21 U/L (5-37); Bilirubin Total 0.9 mg/dL (0.0-1.0); Blood Urea Nitrogen 12 mg/dL (9-16); Calcium 9.8 mg/dL (8.4-10.2); Carbon Dioxide 31 mmol/L (22-29); Chloride 97 mmol/L (96-108); Cholesterol 131 mg/dL (<200); Estimated Glomerular Filt Rate > 60; Glucose Random 169 mg/dL (60-115); HDL Cholesterol 57 mg/dL (>40); LDL Cholesterol Calculated 58 mg/dL (<100); Potassium 3.7 mmol/L (3.3-5.1); Sodium 136 mmol/L (135-145); Total Protein 8.2 g/dL (6.5-8.0); Triglycerides 84 mg/dL (<150)
[2024-12-29 14:10] LABS: Microalbum/Creatinine Ratio Ur 10.1 ug/mg cr (<30)
== END 2024-12-29 10:52 | disposition home or self-care (01) ==
LOC: HO.HHCL 10:51
PROVIDERS: Visit Provider Internal Medicine
DX: I10 Essential (primary) hypertension (principal); E11.9 Type 2 diabetes mellitus without complications
CPT/HCPCS: 36415; 80053; 80061; 82043; 82570

== ENCOUNTER 2025-02-04 14:55 | Outpatient (REF) | payer OTHER, SELFPAY ==
--- OUTSIDE RECORDS SUMMARY | 2025-02-04 16:19 | XMS_ITS | Encounter Summary ---
Author Organization [employer] Address [address] [facility] 7t [place] [address] Care Team Providers Care Fresh Work Inspector Name Role Phone Colton Nelson MD Primary Care Provide r Reason for Visit * Reason Comments Med Refill Encounter Details Date Type Department Care Team ([facility] st Contact Info) Description 10/09/2023 Refill [facility] [address] [place], [place] [phone] Colton Nelson MD [address] [place], [place] [phone] Social History Tobacco Use Types Packs/Day Years Used Date Smoking Tobacco: Former Passive Smoke Exposure: Never Smokeless Tobacco: Never Alcohol Use Standard Drinks/Week Comments Defer 0 (1 standard drink = 0.6 oz pur e alcohol) Depression Answer Date Recorded Patient Health Questionnaire-9 Score 0 12/17/2022 Housing Stability Answer Date Recorded What is your housing situation today? I have cedrichema lehman 09/08/[address] you [...] Care Team (Late st Contact Info) Description 02/18/2025 9:00 AM EDT Clinical Support [facility] [address] [place] [address] Maria Isabel Elam RN 505 [place] [address] 03/16/2025 1:00 PM EDT Office Visit [facility] ADULT DENTAL [address] [place] [address] Pearl Brielle [address] [place] [address] 04/07/2025 2:15 PM EDT Office Visit [facility] MED[facility] [address] [place] [address] Colton Nelson MD [address] [place] [address] documented as of this encounter Visit Diagnoses Not on filedocumented in this encounter Additional Health Concerns Assessment Noted Time PHQ-9 Depression Total Score: 0 12/17/19 23 10:18 AM EST documented as of this encounter Care Teams Fresh Work Inspector Relationship Specialty Start Date End Date Colton Nelson MD [address] [place] [address] PCP - General Internal Medicine 05/04/20 documented as of this encounter
--- OUTSIDE RECORDS SUMMARY | 2025-02-04 16:19 | XMS_ITS | Encounter Summary ---
Author Organization [employer] Address [address] [facility] [address] [place] [address] Care Team Providers Care Signal Operator Linguist Name Role Phone Colton Nelson MD Primary Care Provide r Reason for Visit * Reason Onset Date Comments Nurse Triage 02/03/2025 Encounter Details Date Type Department Care Team ([facility] st Contact Info) Description 02/03/2025 Telephone [facility] MEDICINE [address] [place], [place] [phone] Colton Nelson MD [address] [place], [place] [phone] Nurse Triage Social History Tobacco Use Types Packs/Day Years [...] Answer Date Recorded Patient Health Questionnaire-9 Score 9 02/04/2025 Patient Health Questionnaire-9 Score 9 02/04/2025 Last PHQ-9: Questionnaire Data Not on file 0 02/04/2025 Housing Stability Answer Date Recorded What is [...] Answer Date Recorded Patient Health Questionnaire-2 Score 2 02/04/2025 Internet Access Answer Date Recorded Internet Access [...] encounter Miscellaneous Notes * Telephone Encounter - Tena Vann RN - 02/03/2025 2:40 PM EDT Call returned to Jose Ramon Feliciano to triage below. Spoke with daughter Nicci who reports pt havingincreased anxiety as well as increased forgetfulness. Pt also becomes easily agitated. Examples of forgetting what his daily tasks usually are. Pt repeats same as if forgets already discussed. Per daughter sibling lives next door and has noticed increased anxiety. 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 Daughter is concerned pt is overwhelmed with providing care. No recent illness. Daughter did not report any urinary sx. Wants pt to be referred to CC. No dx of anxiety in problem list. Not discussed at last PCP appt. Agrees to sick on site tomorrow. Reviewed home care advise, ER precautions and reasons to call back. Protocol Used: Anxiety and Panic Attack (Adult) Protocol-Based Disposition: See in Office or Video Visit within 3 Days Future Appointments Date Time Provider Department Center 02/04/2025 1:30 PM Constance Poole MD MEDICINE [facility] 02/18/2025 9:00 AM Maria Isabel Elam RN MEDICINE [facility] 03/16/2025 1:00 PM Brielle Kang ADLT DENT [facility] 04/07/2025 2:15 PM Colton De Leon MD MEDICINE [facility] Insurance verified as active per [facility]. Video visit offer not recorded Positive Triage Question: * Moderate anxiety (e.g., persistent or frequent anxiety symptoms; interferes with sleep, school, or work) * All higher-acuity triage questions were negative Care Advice Discussed: * Reasons To Call Back - Anxiety or panic attacks continue - You feel like harming yourself - You become worse * Telephone Encounter - Kalani Farley - 02/03/2025 2:21 PM EDT Symptom: Anxiety or Panic Attack Outcome: Transfer to a nurse or provider NOW! Reason: Acting confused The caller accepted this outcome. [phone] (daughter) documented in this encounter Plan of Treatment Upcoming Encounters Date Type Department Care Team (Late st Contact Info) Description 02/18/2025 9:00 AM EDT Clinical Support [facility] MEDICINE [address] [place] [phone] Maria Isabel Elam, ELEAZAR [address] [place] [address] 03/16/2025 1:00 PM EDT Office Visit [facility] ADULT DENTAL [address] [place] [address] Pearl, Brielle [address] [place] [address] 04/07/2025 2:15 PM EDT Office Visit [facility] MEDICINE [address] [place] [address] Colton Nelson MD [address] [place] [address] documented as of this encounter Visit Diagnoses Not on filedocumented in this encounter Additional Health Concerns Assessment Noted Time PHQ-9 Depression Total Score: 0 05/11/20 24 1:30 PM EDT documented as of this encounter Care Teams Signal Operator Linguist Relationship Specialty Start Date End Date Colton Nelson MD [address] [place] [address] PCP - General Internal Medicine 05/04/20 documented as of this encounter
--- OUTSIDE RECORDS SUMMARY | 2025-02-04 16:19 | XMS_ITS | Encounter Summary ---
Author Organization [employer] Address [address] [facility] 7t [place] [address] Care Team Providers Care Product Support Rep Name Role Phone Colton Nelson MD Primary Care Provide r Encounter Details Date Type Department Care Team (Late st Contact Info) Description 11/13/2023 Abstract [facility] ADULT DENTAL [address] [place], [place] [phone] Xavier Kangaris [address] [place] [address] Social History Tobacco Use Types Packs/Day Years [...] Description 02/18/2025 9:00 AM EDT Clinical Support [facility] MEDICINE [address] [place] [address] Maria Isabel Elam, ELEAZAR [address] [place] [address] 03/16/2025 1:00 PM EDT Office Visit [facility] ADULT DENTAL [address] [place] [address] Brielle Kang [address] [place] [address] 04/07/2025 2:15 PM EDT Office Visit [facility] MEDICINE [address] [place] [address] Colton Nelson MD [address] [place] [address] documented as of this encounter Visit Diagnoses Not on filedocumented in this encounter Additional Health Concerns Assessment Noted Time PHQ-9 Depression Total Score: 0 12/17/19 23 10:18 AM EST documented as of this encounter Care Teams Product Support Rep Relationship Specialty Start Date End Date Colton Nelson MD [address] [place] [phone] PCP - General Internal Medicine 05/04/20 documented as of this encounter
--- OUTSIDE RECORDS SUMMARY | 2025-02-04 16:19 | XMS_ITS | Encounter Summary ---
Author Organization [employer] Address [address] [facility] 7t [place] [address] Care Team Providers Care Page Technician Name Role Phone Colton Nelson MD Primary Care Provide r Reason for Visit * Reason Onset Date Comments Reschedule 02/18/2024 Encounter Details Date Type Department Care Team ([facility] st Contact Info) Description 02/18/2024 Telephone [facility] MEDICINE [address] [place], [place] [phone] Colton Nelson MD [address] [place], [place] [phone] Reschedule Social History Tobacco Use Types Packs/Day [...] Miscellaneous Notes * Telephone Encounter - Cristal Juan - 02/18/2024 9:20 AM EDT Tc from pt requesting to reschedule 02/17 SOFTWARE DEVELOPMENT LEADER appointment. Please contact pt at [phone] documented in this encounter Plan of Treatment Upcoming Encounters Date Type Department Care Team (Late st Contact Info) Description 02/18/2025 9:00 AM EDT Clinical Support [facility] MEDICINE [address] [place] [phone] Maria Isabel Elam RN [address] [place] [address] 03/16/2025 1:00 PM EDT Office Visit [facility] ADULT DENTAL [address] [place] [address] Brielle Kang [address] [place] [address] 04/07/2025 2:15 PM EDT Office Visit [facility] MEDICINE [address] [place] [address] Colton Nelson MD [address] [place] [address] documented as of this encounter Visit Diagnoses Not on filedocumented in this encounter Additional Health Concerns Assessment Noted Time PHQ-9 Depression Total Score: 0 12/17/19 10:18 AM EST documented as of this encounter Care Teams Page Technician Relationship Specialty Start Date End Date Colton Nelson MD [address] [place] [address] PCP - General Internal Medicine 05/04/20 documented as of this encounter
--- OUTSIDE RECORDS SUMMARY | 2025-02-04 16:19 | XMS_ITS | Encounter Summary ---
Author Organization [employer] Address [address] [facility] 7t [place] [address] Care Team Providers Care Mold Tooler Name Role Phone Colton Nelson MD Primary Care Provide r Reason for Visit * Reason Onset Date Comments Appointment Request 12/23/2023 Encounter Details Date Type Department Care Team ([facility] st Contact Info) Description 12/23/2023 Telephone [facility] MEDICINE [address] [place], [place] [phone] Colton Nelson MD [address] [place], [place] [phone] Appointment Request Social History Tobacco Use Types [...] * Telephone Encounter - Sawyer Neville - 12/23/2023 11:20 AM EST Tc from pt requesting call back regarding cancelled appt with pcp 12/18/23. Please contact pt at [phone]. documented in this encounter Plan of Treatment Upcoming Encounters Date Type Department Care Team (Late st Contact Info) Description 02/18/2025 9:00 AM EDT Clinical Support [facility] MEDICINE [address] [place] [phone] Maria Isabel Elam RN [address] [place] [address] 03/16/2025 1:00 PM EDT Office Visit [facility] ADULT DENTAL [address] [place] [address] Xavier Kangaris [address] [place] [address] 04/07/2025 2:15 PM EDT Office Visit [facility] MEDICINE [address] [place] [address] Colton Nelson MD [address] [place] [address] documented as of this encounter Visit Diagnoses Not on filedocumented in this encounter Additional Health Concerns Assessment Noted Time PHQ-9 Depression Total Score: 0 12/17/19 10:18 AM EST documented as of this encounter Care Teams Mold Tooler Relationship Specialty Start Date End Date Colton Nelson MD [address] [place] [address] PCP - General Internal Medicine 05/04/20 documented as of this encounter
--- OUTSIDE RECORDS SUMMARY | 2025-02-04 16:19 | XMS_ITS | Encounter Summary ---
Author Organization [employer] Address 75 [facility] 7t [place] [address] Care Team Providers Care Business Leader Name Role Phone Colton Nelson MD Primary Care Provide r Reason for Visit * Reason Comments Med Refill Encounter Details Date Type Department Care Team ([facility] st Contact Info) Description 10/09/2023 Refill [facility] MED [facility] PEDS [address] [place], [place] [phone] Gudelia Flores FNP [address] [place], [place] [phone] Social History Tobacco Use Types Packs/Day Years [...] Description 02/18/2025 9:00 AM EDT Clinical Support [facility] MEDICINE [address] [place] [address] Maria Isabel Elam RN 505 [place] [address] 03/16/2025 1:00 PM EDT Office Visit [facility] ADULT DENTAL [address] [place] [address] Pearl, Brielle [address] [place] [address] 04/07/2025 2:15 PM EDT Office Visit [facility] MEDICINE [address] [place] [address] Colton Nelson MD [address] [place] [address] documented as of this encounter Visit Diagnoses Not on filedocumented in this encounter Additional Health Concerns Assessment Noted Time PHQ-9 Depression Total Score: 0 12/17/19 23 10:18 AM EST documented as of this encounter Care Teams Business Leader Relationship Specialty Start Date End Date Colton Nelson MD [address] [place] [address] PCP - General Internal Medicine 05/04/20 documented as of this encounter
--- OUTSIDE RECORDS SUMMARY | 2025-02-04 16:19 | XMS_ITS | Encounter Summary ---
Author Organization [employer] Address [address] [facility] [address] [place] [address] Care Team Providers Care Arch Cushion Press Operator Name Role Phone Colton Nelson MD Primary Care Provide r Reason for Referral * Consultation (Routine) - Pending Review Specialty Diagnoses / Procedures Referred By Dennys fall Referred To Contact Neurology Diagnoses Forgetfulness Constance Wiggins MD [address] [place] [address] Phone: tel: fax: Referral ID Status Reason Start Date Expiration Date Visits Requested Visits Authorized [id number] Pending Review Specialty Services Required 02/04/2025 02/04/2026 1 1 Encounter Details Date Type Department Care Team (Late st Contact Info) Description 02/04/2025 1:30 PM EDT Office Visit [facility] MEDICINE [address] [place] [phone] Constance Wiggins MD [address] [place] [phone] Anxiety (Primary Dx); Forgetfulness; Essential hypertension Social History Tobacco Use Types Packs/Day Years [...] Sign Reading Time Taken Comments Blood Pressure 157/83 02/04/2025 1:59 PM EDT Pulse 62 02/04/2025 1:38 PM EDT Temperature 36 ??C (96.8 ??F) 02/04/2025 1:38 PM EDT Respiratory Rate 20 02/04/2025 1:38 PM EDT Oxygen Saturation - - Inhaled Oxygen Concentration - - Weight 82.4 kg (181 lb 9.6 oz) 02/04/2025 1:38 P M EDT Height 162.6 cm (5' 4 ) 02/04/2025 1:38 PM EDT Body Mass Index 31.17 02/04/2025 1:38 PM EDT documented in this encounter Progress Notes * Constance Poole MD - 02/04/2025 1:30 PM EDT SUBJECTIVE: Jose Ramon Feliciano is a 79 y.o. year old male who presents for sick visit increase anxiety . Acute Concerns: Patient comes today with his daughter, they report he has been having episodes where he loses his train of thought and because of this he becomes very agitated, anxious. Patient also tells me he sometimes is walking to a certain place and then he forgets completely where he is or where he was going. Daughter is concerned about possible dementia, she also tells me his father is repeating several times same information or asking again about the same thing Social History Social History Narrative Not on file Patient Active Problem List Diagnosis Cervical spondylosis Atherosclerosis of coronary artery BPH without urinary obstruction BRCA2 gene mutation positive Carpal tunnel syndrome Chronic obstructive lung disease (CMS/HCC) Diabetes mellitus, type II (CMS/HCC) Essential hypertension Gastroesophageal reflux disease Hyperlipidemia Erectile dysfunction Abnormal LFTs (liver function tests) Male hypogonadism Mantoux: positive Lumbar disc herniation Restless legs Vitamin D deficiency Elevated PSA Chronic pain of left knee Normal oral exam Periodontal disease Dental calculus Gingival recession, generalized Partial edentulism Tooth fracture with loss of restorative material ALLY on CPAP Primary insomnia Gingival bleeding Pneumonia due to influenza A virus Partially edentulous mandible Tear of right rotator cuff Ill-fitting dentures Asthma Carpal tunnel syndrome on both sides Erectile dysfunction due to arterial insufficiency Obesity (BMI 30-39.9) Pneumonia Incomplete tear of right rotator cuff S/P arthroscopic knee surgery Routine physical examination Preventative health care Anxiety Forgetfulness Mild depression No family history on file. Review of Systems Constitutional: Negative. HENT: Negative. Respiratory: Negative. Cardiovascular: Negative. Gastrointestinal: Negative. Genitourinary: Negative. Psychiatric/Behavioral: Positive for agitation, behavioral problems and confusion. The patient is nervous/anxious. OBJECTIVE: Vitals: 02/04/25 1338 02/04/25 1359 BP: (!) 171/78 (!) 157/83 BP Location: Left arm Right arm Patient Position: Sitting Sitting BP Cuff Size: Large adult Pulse: 62 Resp: 20 Temp: 96.8 ??F (36 ??C) TempSrc: Oral Weight: 181 lb 9.6 oz (82.4 kg) Height: 5' 4 (1.626 m) Physical Exam Constitutional: Appearance: Normal appearance. Cardiovascular: Rate and Rhythm: Normal rate and regular rhythm. Pulmonary: Effort: Pulmonary effort is normal. Breath sounds: Normal breath sounds. Abdominal: General: Abdomen is flat. Palpations: Abdomen is soft. Musculoskeletal: Right lower leg: No edema. Left lower leg: No edema. Neurological: Mental Status: He is alert. Follow Up: Follow up for 1-2 weeks [facility] then f/u with PCP as schedule . Current Outpatient Medications on File Prior to Visit Medication Sig Dispense Refill acetaminophen (Tylenol) 500 MG tablet Take 2 tablets by mouth if needed in the morning, at noon, inthe evening, and at bedtime for pain. Advair HFA 115-21 MCG/ACT inhaler INHALE 2 PUFFS BY MOUTH TWICE DAILY FOR ASTHMA / (for COPD) [place] AFTER USING. 12 g 11 albuterol (2.5 MG/3ML) 0.083% nebulizer solution INHALE 1 AMPULE USING A NEBULIZER EVERY 4 HOURS ASNEEDED FOR WHEEZING 90 mL 3 amLODIPine (Norvasc) 10 MG tablet TAKE 1 TABLET BY MOUTH EVERY MORNING 90 tablet 0 aspirin 81 MG EC tablet take 1 tablet (81MG) by oral route every day Blood Glucose Monitoring Suppl (ONE TOUCH ULTRA 2) w/Device kit 1 vial with breakfast, with lunch, and with evening meal. Test 1 times by intradermal route 2 times every day 1 kit 0 chlorthalidone (Hygroton) 25 MG tablet TAKE 1 TABLET BY MOUTH EVERY MORNING 30 tablet 3 cholecalciferol VITAMIN D (Vitamin D-3) 50 MCG (2000 UT) tablet TAKE 1 TABLET BY MOUTH EVERY MORNING 90 tablet 3 fluticasone (Flonase Allergy Relief) 50 MCG/ACT nasal spray Administer 2 sprays into each nostril 2times daily. Inhale 2 spray by intranasal route every day in each nostril 16 g 3 gabapentin (Neurontin) 600 MG tablet Take 1 tablet by mouth every 8 (eight) hours. glipiZIDE XL (Glucotrol XL) 2.5 MG 24 hr tablet TAKE 1 TABLET BY MOUTH EVERY MORNING BEFORE BREAKFAST FOR BLOOD SUGAR > 150 90 tablet 1 glucose blood (OneTouch Ultra) test strip TEST BLOOD SUGAR TWICE A DAY 100 each 11 hydrocortisone 1 % cream Apply topically every 12 (twelve) hours. Apply by topical route 2 times every day a thin layer to the affected area(s) hydrOXYzine HCl (Atarax) 25 MG tablet TAKE 1 TABLET BY MOUTH THREE TIMES DAILY NEEDED 20 tablet 0 ketotifen (Alaway) 0.025 % ophthalmic solution INSTILL 1 DROP BY OPHTHALMIC ROUTE TWICE A DAY INTO THE AFFECTED EYE(S) 5 mL 5 lidocaine (Lidoderm) 5 % patch Place 1 patch on the skin if needed each day. Apply 1 patch by transdermal route every day (May wear up to 12 hours) as needed for pain melatonin 5 MG tablet Take 2 tablets by mouth if needed at bedtime (sleep). metFORMIN (Glucophage) 1000 MG tablet TAKE 1 TABLET BY MOUTH TWICE DAILY IN THE MORNING AND IN THE EVENING WITH FOOD 180 tablet 1 montelukast (Singulair) 10 MG tablet TAKE 1 TABLET BY MOUTH EVERY MORNING 90 tablet 0 naloxone (Narcan) 4 mg/0.1 mL nasal spray Administer 0.1 mL into affected nostril(s). [place] 0.1 milliliter by intranasal route in 1 nostril may repeat dose every 2-3 minutes as needed alternating nostrils with each dose omeprazole (PriLOSEC) [address] capsule TAKE 1 CAPSULE BY MOUTH EVERY MORNING 90 capsule 3 OneTouch Delica Lancets 33G misc 1 vial before breakfast, before lunch, and before evening meal. TEST BLOOD SUGAR TWICE A DAY 100 each 11 oxyCODONE-acetaminophen (Percocet) 5-325 MG tablet Take 1 tablet by mouth every 6 (six) hours if needed for severe pain. 20 tablet 0 rOPINIRole (Requip) 4 MG tablet TAKE 1 TABLET BY MOUTH AT BEDTIME 30 tablet 5 sildenafil (Viagra) 100 MG tablet Take 1 tablet (100 mg) by mouth if needed each day for erectile dysfunction. 15 tablet 3 simvastatin (Zocor) 10 MG tablet TAKE 1 TABLET BY MOUTH EVERY EVENING 90 tablet 1 Spacer/Aero-Holding Chambers (OptiChamber Ebony) device q4h prn Testosterone 1.62 % gel APPLY 2 PUMPS TOPICALLY ONCE DAILY. ALTERNATE SHOULDER EVERY DAY. Ventolin HFA 108 (90 Base) MCG/ACT inhaler INHALE 2 PUFFS BY MOUTH EVERY 4 TO 6 HOURS NEEDED FORWHEEZING [DISCONTINUED] glipiZIDE XL (Glucotrol XL) 2.5 MG 24 hr tablet TAKE 1 TABLET BY MOUTH EVERY DAY IF BLOOD SUGAR > 150 IN THE MORNING (BEFORE BREAKFAST) 90 tablet 1 [DISCONTINUED] metFORMIN (Glucophage) 1000 MG tablet TAKE 1 TABLET BY MOUTH TWICE DAILY IN THE MORNING AND IN THE EVENING WITH FOOD 180 tablet 1 [DISCONTINUED] simvastatin (Zocor) 10 MG tablet TAKE 1 TABLET BY MOUTH EVERY EVENING 90 tablet 1 No current facility-administered medications on file prior to visit. Problem List Items Addressed This Visit Anxiety - Primary Counseling done today N was called, services were offered and also he was referred for psychiatry services Forgetfulness Patient is showing clinical signs of dementia, I will order blood work to rule out reversible causes for the symptoms Patient will also be seen by nurse for Mini-Mental status Patient also referred today to neurology clinic Relevant Orders CBC auto differential Comprehensive Metabolic Panel Hemoglobin A1c TSH with Reflex to Free T4 RPR (Monitor) with Reflex to Titer Vitamin B12 (Cobalamin) and Folate Panel, Serum Referral to Neurology Essential hypertension Today patient's blood pressure is elevated, he and daughter tells me that he forgot completely to take his medication today also he is feeling today very anxious I advised to take his medication as soon as he gets home, I also advised low- sodium diet follow-up with PCP documented in this encounter Miscellaneous Notes * Assessment & Plan Note - Constance Poole MD - 02/04/2025 4:16 PM EDT Associated Problem(s): Forgetfulness Patient is showing clinical signs of dementia, I will order blood work to rule out reversible causes for the symptoms Patient will also be seen by nurse for Mini-Mental status Patient also referred today to neurology clinic * Assessment & Plan Note - Constance Poole MD - 02/04/2025 4:15 PM EDT Associated Problem(s): Anxiety Counseling done today [facility] was called, services were offered and also he was referred for psychiatry services * Assessment & Plan Note - Constance Poole MD - 02/04/2025 4:14 PM EDT Associated Problem(s): Essential hypertension Today patient's blood pressure is elevated, he and daughter tells me that he forgot completely to take his medication today also he is feeling today very anxious I advised to take his medication as soon as he gets home, I also advised low- sodium diet follow-up with PCP documented in this encounter Plan of Treatment Upcoming Encounters Date Type Department Care Team (Late st Contact Info) Description 02/18/2025 9:00 AM EDT Clinical Support [facility] MEDICINE [address] [place] [address] Maria Isabel Elam RN [address] [place] [address] 03/16/2025 1:00 PM EDT Office Visit [facility] ADULT DENTAL [address] [place] [address] Pearl, Brielle [address] [place] [address] 04/07/2025 2:15 PM EDT Office Visit [facility] MEDICINE [address] [place] [address] Colton Nelson MD [address] [place] [address] Scheduled Orders Name Type Priority Associated Diagnoses Orde r Schedule CBC auto differential Lab Routine Forgetfulness Expected: 02/04/2025 (Approximate), Expires: 02/04/2026 Comprehensive Metabolic Panel Lab Routine Forgetfulness Expected: 02/04/2025 (Approximate), Expires: 02/04/2026 Hemoglobin A1c Lab Routine Forgetfulness Expected: 02/04/2025 (Approximate), Expires: 02/04/2026 TSH with Reflex to Free T4 Lab Routine Forgetfulness Expected: 02/04/2025 (Approximate), Expires: 02/04/2026 RPR (Monitor) with Reflex to??Titer Lab Routine Forgetfulness Expected: 02/04/2025, Expires: 02/04/2026 Vitamin B12 (Cobalamin) and Folate Panel, Serum Lab Routine Forgetfulness Expected: 02/04/2025, Expires: 02/04/2026 Scheduled Referrals Name Type Priority Associated Diagnoses Orde r Schedule Referral to Neurology Outpatient Referral Routine Forgetfulness Expected: 02/04/2025 (Approximate), Expires: 02/04/2026 documented as of this encounter Visit Diagnoses Diagnosis Anxiety- Primary Anxiety state, unspecified Forgetfulness Other general symptoms Essential hypertension Unspecified essential hypertension documented in this encounter Additional Health Concerns Assessment Noted Time PHQ-9 Depression Total Score: 9 02/05/20 25 2:00 PM EDT documented as of this encounter Care Teams Arch Cushion Press Operator Relationship Specialty Start Date End Date Colton Nelson MD [address] [place] [address] PCP - General Internal Medicine 05/04/20 documented as of this encounter
--- OUTSIDE RECORDS SUMMARY | 2025-02-04 16:19 | XMS_ITS | Encounter Summary ---
Author Organization [employer] Address 75 [facility] 7t [place] [address] Care Team Providers Care Electrical Construction Project Manager Name Role Phone Colton Nelson MD Primary Care Provide r Encounter Details Date Type Department Care Team (Latest Contact Info) Description 02/04/2025 Travel Social History Tobacco Use Types Packs/Day [...] Description 02/18/2025 9:00 AM EDT Clinical Support [facility] MEDICINE [address] [place] [address] Maria Isabel Elam RN 505 [place] [address] 03/16/2025 1:00 PM EDT Office Visit [facility] ADULT DENTAL [address] [place] [address] Brielle Kang 230 [place] [address] 04/07/2025 2:15 PM EDT Office Visit [facility] MEDICINE [address] [place] [address] Colton Nelson MD [address] [place] [address] documented as of this encounter Visit Diagnoses Not on filedocumented in this encounter Additional Health Concerns Assessment Noted Time PHQ-9 Depression Total Score: 9 02/05/20 25 2:00 PM EDT documented as of this encounter Care Teams Electrical Construction Project Manager Relationship Specialty Start Date End Date Colton Nelson MD [address] [place] [address] PCP - General Internal Medicine 05/04/20 documented as of this encounter
--- OUTSIDE RECORDS SUMMARY | 2025-02-04 16:19 | XMS_ITS | Encounter Summary ---
Author Organization [employer] Address 75 [facility] 7[address] [place] [address] Care Team Providers Care Bag Checker Name Role Phone Colton Nelson MD Primary Care Provide r Reason for Visit * Reason Onset Date Comments dial polisher 01/14/2025 Encounter Details Date Type Department Care Team ([facility] st Contact Info) Description 01/14/2025 Telephone [facility] CHC MED & PEDS 505 [place] [address] Maria Isabel Elam RN 505 [place] [address] dial polisher Social History Tobacco Use Types Packs/Day Years [...] encounter Miscellaneous Notes * Telephone Encounter - Maria Isabel Elam RN - 01/14/2025 10:36 AM EST TC to pt to r/s missed SKIN SPECIALIST appt. Appt r/s to 02/18/25 @ 9am. documented in this encounter Plan of Treatment Upcoming Encounters Date Type Department Care Team (Late st Contact Info) Description 02/18/2025 9:00 AM EDT Clinical Support [facility] MEDICINE [address] [place] [address] Maria Isabel Elam RN 505 [place] [address] 03/16/2025 1:00 PM EDT Office Visit [facility] ADULT DENTAL [address] [place] [address] Brielle Kang 230 [place] [address] 04/07/2025 2:15 PM EDT Office Visit [facility] MEDICINE [address] [place] [address] Colton Nelson MD 230 [place] [address] documented as of this encounter Visit Diagnoses Not on filedocumented in this encounter Additional Health Concerns Assessment Noted Time PHQ-9 Depression Total Score: 0 05/11/20 24 1:30 PM EDT documented as of this encounter Care Teams Bag Checker Relationship Specialty Start Date End Date Colton Nelson MD [address] [place] [address] PCP - General Internal Medicine 05/04/20 documented as of this encounter
--- OUTSIDE RECORDS SUMMARY | 2025-02-04 16:19 | XMS_ITS | Encounter Summary ---
Author Organization [employer] Address 75 [facility] 7t [place] [address] Care Team Providers Care Outside Residential Sales Professional Name Role Phone Colton Nelson MD Primary Care Provide r Reason for Visit * Reason Comments Med Refill Encounter Details Date Type Department Care Team (Late st Contact Info) Description 04/17/2023 Refill [facility] CHC MED & PEDS 505 [place] [address] Colton Nelson MD 230 [place], [place] [phone] Social History Tobacco Use Types Packs/Day Years [...] AM EDT Clinical Support [facility] MEDICINE 230 [place] [address] Maria Isabel Elam, RN 505 [place] [address] 03/16/2025 1:00 PM EDT Office Visit [facility] ADULT DENTAL 230 [place] [address] Pearl, Brielle [address] [place] [address] 04/07/2025 2:15 PM EDT Office Visit [facility] MEDICINE [address] [place] [address] Colton Nelson MD [address] [place] [address] documented as of this encounter Visit Diagnoses Not on filedocumented in this encounter Additional Health Concerns Assessment Noted Time PHQ-9 Depression Total Score: 0 12/17/19 23 10:18 AM EST documented as of this encounter Care Teams Outside Residential Sales Professional Relationship Specialty Start Date End Date Colton Nelson MD [address] [place] [address] PCP - General Internal Medicine 05/04/20 documented as of this encounter
--- OUTSIDE RECORDS SUMMARY | 2025-02-04 16:19 | XMS_ITS | Encounter Summary ---
Author Organization [employer] Address 75 [facility] 7[address] [place] [address] Care Team Providers Care Sales Relationship Manager Name Role Phone Colton Nelson MD Primary Care Provide r Reason for Visit * Reason Onset Date Comments Med Refill 01/14/2025 Encounter Details Date Type Department Care Team ([facility] st Contact Info) Description 01/14/2025 Telephone [facility] MEDICINE [address] [place], [place] [phone] Colton Nelson MD 230 [place], [place] [phone] Med Refill Social History Tobacco Use Types Packs/Day Years [...] Telephone Encounter - Tena Vann RN - 01/14/2025 9:56 AM EST No site interpreter needed as this television script writer speaks [place]. Call returned to Jose Ramon Braden to triage below. Reports having bilateral eye discharge x 3-4 days. Per pt its increased tearing. NO whie discharge. Mild itching. Mild intermittent blurred vision. Mild redness of eyelids. No fb in eyes. Pt states has appt at [facility] at 10:40am. Do not see anything in appt desk. Pt transferred to [facility]. Pt also given [facility] hours for today and tomorrow as well. Reviewed [facility] operating hours and that wait times vary. Protocol Used: Eye - Pus or Discharge (Adult) Protocol-Based Disposition: See in Office or Video Visit Today Video visit offer not recorded Positive Triage Question: * Eyelid (outer) is very red and painful (or tender to touch) * All higher-acuity triage questions were negative Care Advice Discussed: * Reasons To Call Back - Pus lasts over 3 days (72 hours) on treatment - Blurred vision occurs - Light bothers your eyes - You become worse * Telephone Encounter - Renay Mcdaniles - 01/14/2025 9:23 AM EST Symptom: Eye - Pus or Discharge Outcome: Schedule an urgent appointment (within 1 hour) or talk to a nurse or provider soon Reason: Severe pain now The caller accepted this outcome. documented in this encounter Plan of Treatment Upcoming Encounters Date Type Department Care Team (Late st Contact Info) Description 02/18/2025 9:00 AM EDT Clinical Support [facility] MEDICINE [address] [place] [address] Maria Isabel Elam RN 505 [place] [address] 03/16/2025 1:00 PM EDT Office Visit [facility] ADULT DENTAL [address] [place] [address] Pearl, Brielle [address] [place] [address] 04/07/2025 2:15 PM EDT Office Visit [facility] MEDICINE [address] [place] [address] Colton Nelson MD [address] [place] [address] documented as of this encounter Visit Diagnoses Not on filedocumented in this encounter Additional Health Concerns Assessment Noted Time PHQ-9 Depression Total Score: 0 05/11/20 24 1:30 PM EDT documented as of this encounter Care Teams Sales Relationship Manager Relationship Specialty Start Date End Date Colton Nelson MD 230 [place] [address] PCP - General Internal Medicine 05/04/20 documented as of this encounter
--- OUTSIDE RECORDS SUMMARY | 2025-02-04 16:19 | XMS_ITS | Encounter Summary ---
Author Organization [employer] [facility] Address [address] [place] [address] 7t [place] [address] Care Team Providers Care Tool Planer Set Up Operator Name Role Phone Colton Nelson MD Primary Care Provide r Encounter Details Date Type Department Care Team (Latest Contact Info) Description 12/13/2020 Abstract [facility] CONVERSIONS Dental, Provider, DDS Social History Tobacco [...] Description 02/18/2025 9:00 AM EDT Clinical Support [facility] MEDICINE [address] [place] [address] Maria Isabel Elam RN 505 [place] [address] 03/16/2025 1:00 PM EDT Office Visit [facility] ADULT DENTAL [address] [place] [phone] Xavier Kangaris 230 [place] [address] 04/07/2025 2:15 PM EDT Office Visit [facility] MEDICINE [address] [place] [address] Colton Nelson MD 230 [place] [address] documented as of this encounter Visit Diagnoses Not on filedocumented in this encounter Care Teams Tool Planer Set Up Operator Relationship Specialty Start Date End Date Colton Nelson MD [address] [place] [address] PCP - General Internal Medicine 05/04/20 documented as of this encounter
--- OUTSIDE RECORDS SUMMARY | 2025-02-04 16:19 | XMS_ITS | Encounter Summary ---
Author Organization [employer] Address 75 [facility] 7t [place] [address] Care Team Providers Care Vest Backer Name Role Phone Cotlon Nelson MD Primary Care Provide r Encounter Details Date Type Department Care Team (Latest Contact Info) Description 01/14/2025 Travel Social History Tobacco Use Types Packs/Day [...] Description 02/18/2025 9:00 AM EDT Clinical Support [facility] MEDICINE [address] [place] [address] Maria Isabel Elam RN 505 [place] [address] 03/16/2025 1:00 PM EDT Office Visit [facility] ADULT DENTAL [address] [place] [address] Brielle Kang 230 [place] [address] 04/07/2025 2:15 PM EDT Office Visit [facility] MEDICINE [address] [place] [address] Colton Nelson MD [address] [place] [address] documented as of this encounter Visit Diagnoses Not on filedocumented in this encounter Additional Health Concerns Assessment Noted Time PHQ-9 Depression Total Score: 0 05/11/20 24 1:30 PM EDT documented as of this encounter Care Teams Vest Backer Relationship Specialty Start Date End Date Colton Nelson MD [address] [place] [address] PCP - General Internal Medicine 05/04/20 documented as of this encounter
--- OUTSIDE RECORDS SUMMARY | 2025-02-04 16:19 | XMS_ITS | Encounter Summary ---
Author Organization [employer] Address 75 [facility] 7t [place] [address] Care Team Providers Care Charge Account Authorizer Name Role Phone Colton Nelson MD Primary Care Provide r Reason for Visit * Reason Comments Med Refill Encounter Details Date Type Department Care Team ([facility] st Contact Info) Description 10/15/2023 Refill [facility] MEDICINE 230 [place], [place] [phone] Colton Nelson MD 230 [place], [place] [phone] Social History Tobacco Use Types Packs/Day Years [...] 9:00 AM EDT Clinical Support [facility] MEDICINE [address] [place] [address] Maria Isabel Elam RN 505 [place] [address] 03/16/2025 1:00 PM EDT Office Visit [facility] ADULT DENTAL [address] [place] [address] Pearl Brielle [address] [place] [address] 04/07/2025 2:15 PM EDT Office Visit [facility] MEDICINE [address] [place] [address] Colton Nelson MD [address] [place] [address] documented as of this encounter Visit Diagnoses Not on filedocumented in this encounter Additional Health Concerns Assessment Noted Time PHQ-9 Depression Total Score: 0 12/17/19 23 10:18 AM EST documented as of this encounter Care Teams Charge Account Authorizer Relationship Specialty Start Date End Date Colton Nelson MD [address] [place] [address] PCP - General Internal Medicine 05/04/20 documented as of this encounter
--- OUTSIDE RECORDS SUMMARY | 2025-02-04 16:19 | XMS_ITS | Encounter Summary ---
Author Organization [employer] Address 75 [facility] 7t [place] [address] Care Team Providers Care Web Development Director Name Role Phone Colton Nelson MD Primary Care Provide r Reason for Visit * Reason Onset Date Comments Med Refill 01/17/2025 Encounter Details Date Type Department Care Team ([facility] st Contact Info) Description 01/17/2025 Refill [facility] MEDICINE 230 [place], [place] [phone] Colton Nelson MD [address] [place], [place] [phone] Lumbar disc herniation Social History Tobacco Use [...] the past 12 months, has t he [employer], gas, oil or water company threatened to [...] encounter Miscellaneous Notes * Telephone Encounter - Brielle Feliciano - 01/17/2025 2:01 PM EST TC from pt requesting medication refill. Medications needing refill : oxyCODONE-acetaminophen (Percocet) 5-325 MG tablet To be sent to: [facility] documented in this encounter Plan of Treatment Upcoming Encounters Date Type Department Care Team (Late st Contact Info) Description 02/18/2025 9:00 AM EDT Clinical Support [facility] MEDICINE [address] [place] [address] Maria Isabel Elam RN 505 [place] [address] 03/16/2025 1:00 PM EDT Office Visit [facility] ADULT DENTAL [address] [place] [address] Brielle Kang [address] [place] [address] 04/07/2025 2:15 PM EDT Office Visit [facility] MEDICINE [address] [place] [address] Colton Nelson MD [address] [place] [address] documented as of this encounter Visit Diagnoses Diagnosis Lumbar disc herniation Displacement of lumbar intervertebral disc without myelopathy documented in this encounter Additional Health Concerns Assessment Noted Time PHQ-9 Depression Total Score: 0 05/11/20 24 1:30 PM EDT documented as of this encounter Care Teams Web Development Director Relationship Specialty Start Date End Date Colton Nelson MD [address] [place] [address] PCP - General Internal Medicine 05/04/20 documented as of this encounter
--- OUTSIDE RECORDS SUMMARY | 2025-02-04 16:19 | XMS_ITS | Encounter Summary ---
Author Organization [employer] Address [address] [facility] 7t [place] [address] Care Team Providers Care Journalism Professor Name Role Phone Colton Nelson MD Primary Care Provide r Reason for Visit * Reason Comments Med Refill Encounter Details Date Type Department Care Team ([facility] st Contact Info) Description 04/16/2024 Refill [facility] MEDICINE [address] [place], [place] [phone] Constance Wiggins MD 230 [place], [place] [phone] Chronic obstructive pulmonary disease, unspecified COPD type [...] Description 02/18/2025 9:00 AM EDT Clinical Support [facility] MEDICINE [address] [place] [address] Maria Isabel Elam RN 505 [place] [address] 03/16/2025 1:00 PM EDT Office Visit [facility] ADULT DENTAL [address] [place] [address] Xavier Kangaris [address] [place] [address] 04/07/2025 2:15 PM EDT Office Visit [facility] MEDICINE [address] [place] [address] Colton Nelson MD 230 [place] [address] documented as of this encounter Visit Diagnoses Diagnosis Chronic obstructive pulmonary disease, unspecified COPD type (CMS/HCC) documented in this encounter Additional Health Concerns Assessment Noted Time PHQ-9 Depression Total Score: 0 12/17/19 23 10:18 AM EST documented as of this encounter Care Teams Journalism Professor Relationship Specialty Start Date End Date Colton Nelson MD [address] [place] [address] PCP - General Internal Medicine 05/04/20 documented as of this encounter
--- OUTSIDE RECORDS SUMMARY | 2025-02-04 16:19 | XMS_ITS | Encounter Summary ---
Author Organization [employer] Address 75 [facility] 7[place] [address] Care Team Providers Care Bi Analyst Name Role Phone Colton Nelson MD Primary Care Provide r Reason for Visit * Reason Comments Med Refill Encounter Details Date Type Department Care Team (Late st Contact Info) Description 04/09/2023 Refill [facility] CHC MED & PEDS 505 [place] [address] Colton Nelson MD 230 [place], [place] [phone] Social History Tobacco Use Types Packs/Day Years [...] Description 02/18/2025 9:00 AM EDT Clinical Support [facility] MEDICINE [address] [place] [address] Maria Isabel Elam, RN 505 [place] [address] 03/16/2025 1:00 PM EDT Office Visit [facility] ADULT DENTAL [address] [place] [address] Pearl, Brielle [address] [place] [address] 04/07/2025 2:15 PM EDT Office Visit [facility] MEDICINE [address] [place] [address] Colton Nelson MD [address] [place] [address] documented as of this encounter Visit Diagnoses Not on filedocumented in this encounter Additional Health Concerns Assessment Noted Time PHQ-9 Depression Total Score: 0 12/17/19 23 10:18 AM EST documented as of this encounter Care Teams Bi Analyst Relationship Specialty Start Date End Date Colton Nelson MD [address] [place] [address] PCP - General Internal Medicine 05/04/20 documented as of this encounter
--- OUTSIDE RECORDS SUMMARY | 2025-02-04 16:19 | XMS_ITS | Encounter Summary ---
Author Organization [employer] Address 75 [facility] 7t [place] [address] Care Team Providers Care Concrete Buster Operator Name Role Phone Colton Nelson MD Primary Care Provide r Encounter Details Date Type Department Care Team ([facility] Contact Info) Description 04/03/2023 Abstract [facility] MEDICINE [address] [place] [address] Colton Nelson MD 230 [place] [address] Social History Tobacco Use Types Packs/Day Years [...] Upcoming Encounters Date Type Department Care Team ([facility] Contact Info) Description 02/18/2025 9:00 AM EDT Clinical Support [facility] MEDICINE 230 [place] [address] Maria Isabel Elam, RN 505 [place] [address] 03/16/2025 1:00 PM EDT Office Visit [facility] ADULT DENTAL [address] [place] [address] Xavier Kangaris [address] [place] [address] 04/07/2025 2:15 PM EDT Office Visit [facility] MEDICINE [address] [place] [address] Colton Nelson MD 230 [place] [address] documented as of this encounter Procedures Procedure Name Priority Date/Time Associated Diagnosis Comments COLONOSCOPY Routine 08/18/2020 documented in this encounter Results * Colonoscopy (08/18/2020) Colonoscopy Normal Normal 08/18/2020 Narrative Jacquelin Chiu - 08/18/2020 9:26 AM EDT Recommended 10 year follow up Historical Provider HEALTH MAINTENANCE Final Result documented in this encounter Visit Diagnoses Not on filedocumented in this encounter Additional Health Concerns Assessment Noted Time PHQ-9 Depression Total Score: 0 12/17/19 23 10:18 AM EST documented as of this encounter Care Teams Concrete Buster Operator Relationship Specialty Start Date End Date Colton Nelson MD [address] [place] [address] PCP - General Internal Medicine 05/04/20 documented as of this encounter
--- OUTSIDE RECORDS SUMMARY | 2025-02-04 16:19 | XMS_ITS ---
Author Name Rashawn LYON, Mr. Maureen Antunez Address [address] [place] [address] Phone [phone] [facility] Care Team Providers Care Housekeeping Aide Name Role Phone Alan Morocho Unavailable [phone] Reason for Referral Not Available Allergies, adverse reactions, alerts No known allergies History of medication use Medication Class Instructions Start Date End Date Albuterol Sulfate HFA 108 (90 Base) MCG/ACT Aerosol Solution INHALE 2 PUFFS BY MOUTH EVERY 4 TO 6 HOURS NEEDED FOR WHEEZING OR SHORTNESS OF BREATH 2021-12-11 No Data Available Chlorthalidone 25 mg Tab TAKE 1/2 TABLET BY MOUTH EVERY MORNING 2022-03-19 No Data Available Ipratropium-Albuterol 0.5-2.5 (3) MG/3ML Solution INHALE 1 AMPULE USING A NEBULIZER EVERY 6 HOURS NEEDED 2021-06-07 No Data Available rOPINIRole 4 mg Tab TAKE 1 TABLET BY THONY TH AT BEDTIME 2022-03-19 No Data Available hydrOXYzine 25 mg Tab TAKE 1 TABLET BY M OUTH THREE TIMES DAILY NEEDED 2022-03-28 No Data Available amLODIPine Besylate 10 mg Tab TAKE 1 TABLET BY MOUTH EVERY MORNING 2021-11-21 No Data Available Losartan Potassium 100 mg Tab TAKE 1 TABLET BY MOUTH EVERY MORNING 2022-02-08 No Data Available Montelukast Sodium 10 mg Tab TAKE 1 TABL ET BY MOUTH EVERY MORNING 2021-12-07 No Data Available Testosterone Cypionate 200 mg/ML Solution INJECT 0.8 ML INTRAMUSCULARLY WITH 2 WEEKS 2022-03-12 No Data Available oxyCODONE-Acetaminophen 5/325 mg Tab TAKE 1 TABLET BY MOUTH EVERY TWELVE HOURS NEEDED 2022-04-19 No Data Available Viagra 100 mg Tab TAKE 1 TABLET 1 HOUR BEFORE SEXUAL RELATIONS ONCE DAILY NEEDED. 2022-04-19 No Data Available cholecalciferol (vitamin D3) 50 mcg (2,000 unit) tablet TAKE 1 TABLET BY MOUTH EVERY MORNING 2021-10-22 No Data Available Flovent HFA 220 MCG/ACT Aerosol INHALE 2 PUFFS BY MOUTH TWICE DAILY RINSE MOUTH AFTER USING. 2022-03-27 No Data Available glipiZIDE ER 2.5 mg Tab ER 24hr TAKE 1 TABLET BY MOUTH EVERY DAY IF BLOOD SUGAR > 150 IN THE MORNING (BEFORE BREAKFAST) 2022-04-26 No Data Available Omeprazole 20 mg Cap delayed rel TAKE 1 CAPSULE BY MOUTH EVERY MORNING 2021-05-02 No Data Available Lidocaine 5 % Patch APPLY 1 PATCH TOPICA LLY TO SKIN, LEAVE ON FOR 12 HOURS AND OFF FOR 12 HOURS DIRECTED NEEDED FOR PAIN 2022-05-22 No Data Available metFORMIN 1000 mg Tab TAKE 1 TABLET BY M OUTH TWICE DAILY IN THE MORNING AND IN THE EVENING WITH MEALS 2022-02-15 No Data Available Simvastatin 10 mg Tab TAKE 1 TABLET BY M OUTH EVERY EVENING 2022-02-15 No Data Available Narcan 4 mg/0.1ML Liquid FOR SUSPECTED O PIOID OVERDOSE. SPRAY 0.1mL IN ONE NOSTRIL. REPEAT IN ALTERNATE NOSTRIL 2-3 MINUTES IF NEEDED. SEEK MEDICAL ATTENTION IMMEDIATELY EVEN IF PATIENT RESPONDS. 2022-06-07 No Data Available Tadalafil 10 mg Tab TAKE ONE TABLET BY M OUTH ONCE A DAY FOR SEXUAL ACTIVITY 2022-01-22 No Data Available Problem List Problem Status Onset Date Resolved Date HTN (hypertension) Active 2022-09-25 N/A GERD (gastroesophageal reflux disease) Active 15-10-02 N/A Restless leg syndrome Active 2022-09-25 N/A COPD (chronic obstructive pulmonary disease) Active 2022-09-25 N/A Erectile dysfunction Active 2022-09-25 N/A Vitamin D deficiency Active 2022-09-25 N/A Hyperlipidemia associated wi type 2 diabetes mellitus Active 2022-09-25 N/A Encounters Encounters Type Facility Date of Service Diagnosis/Co mplaint Pain Assessment - NO pain present (1126F) [facility] [place] Pain Assessment - NO pain present (1126F[place] [facility] [place] Pain Assessment - NO pain present (1126F[place] [facility] [place] Pain Assessment - NO pain present (1126F[place] [facility] [place] Pain Assessment - NO pain present (1126F[place] [facility] [place] Pain Assessment - NO pain present (1126F[place] [facility] [place] Pain Assessment - NO pain present (1126F) [facility] [place] Type 2 diabetes w diabetic peripheral angiopath w/o gangreneType 2 diabetes mellitus with other specified complicationHyperlipidemia, unspecifiedEssential (primary) hypertensionChronic obstructive pulmonary disease, unspecifiedVitamin D deficiency, unspecifiedGastro-esophageal reflux disease without esophagitisMale erectile dysfunction, unspecifiedRestless legs syndrome Pain Assessment - NO pain present (1126F) [facility] [place] Pain Assessment - NO pain present (1126F) [facility] [place] Vital Signs Date of Collection Vitals 2022-09-23 13:16:02 Height - 162.56 cmWe ight - 78.02 kgBody Mass Index (BMI) - 29.52 kg/m2BP Diastolic - 88.0 mm[Hg]BP Systolic - 168.0 mm[Hg]Heart Rate - 62.0 /min Social History Social History Social History Observation Description Effec tive Time Current Smoking Status Former smoker 2025-01-22 4 Sex Male History of Procedures Procedures Service Procedure code Service date Servicing provider Phone# Pain Assessment - NO pain present (1126F) 1126F 2022-09-23 No Data Available No Data A vailable Medication List Documented (1159F) 1159F 2022-09-23 No Data Available No Data Jane ilable Medication Review by prescribing provider or pharmacist documented (1160F) 1160F 2022-09-23 No Data Available No Data Jane ilable Functional Status Assessed (1170F) 1170F 2022-09-23 No Data Available No Data Avail able Advance Care Directive Advance care planning discussion documented in the medical record (1158F) 1158F 2022-09-23 No Data Available No Data Availa ble BMI obtained (3008F) 3008F 2022-09-23 No Data Availab le No Data Available New patient,40-59min; chronic exacerbation, 2 stable chronic or 1 acute illness add add modifier 95 for video (do not use for phone, instead use [id number]) 88857 2022-09-23 No Data Available No Data Availa ble SBP >= 140 3077F 2022-09-23 No Data Available No Data Available DBP 80-89 (3079F) 3079F 2022-09-23 No Data Available No Data Available Functional Status Functional Category Effective Dates inpendent w/ IADLs & ADLs 2022-09-23 HM, 4 hours; laundry, 2022-09-23 Mental Status Status Date A& 2022-09-23 Assessments Date of Service Assessments 2022-09-23 13:16:02 HTN (hypertension)CO PD (chronic obstructive pulmonary disease)GERD (gastroesophageal reflux disease)Vitamin D deficiencyErectile dysfunctionRestless leg syndromePeripheral vascular disease, unspecifiedHyperlipidemia associated with type 2 diabetes mellitus Plan of Care Date of Service Plans 2022-09-23 13:16:02 Pain Assessment - NO pain documented (1126F)Medication Review by prescribing provider or pharmacist documented (1160F)Medication List Documented (1159F)Functional Status Assessed (1170F)Advance Care Directive Advance care planning discussion documented in the medical record (1158F)BMI obtained (3008F)SBP >= 140DBP 80-89 (3079F)Televideo new patient,40-59min; chronic exacerbation, 2 stable chronic or 1 acute illness add modifier 95Continue to see PCP. Follow-up with [facility] as needed for any acute or disease education needs that may arise.Followed by PCPAvoid foods high in saltContinue w/ exercise regimenContinue taking Amlodipine, ChlorthalidoneManaged by PCPTaking Flovent daily, Ipratropium, has Albuterol PRNFollowed by PCPAvoid spicy foods and other irritantsContinue taking omeprazole as prescribedon replacementon Viagra and Testosterone injectionContinue taking rOpinirole as prescribedmember with advanced age, HLD, COPD, HTN. Former smoker continues to take simvastatin 10mgAvoid foods high in sugar and carbsContinue w/ exercise regimenContinue glyburide and Metforminon statin and ARB*inquire about A1c* Goals Date Goal 2022-09-23 Remember to recheck BP and report any sxs; elevated readings 2022-09-23 Call me if You are f eeling sick or ill 2022-09-23 Keep it up with exer cise regimen Health Concerns Date Concern 2022-09-23 Visit completed by a nacho and video using [employer] Tablet. Introductory visit with [employer] to establish care. Today, patient has chief complaint of: establishing care.Reviewed Allergies, Medications, Active Medical conditions, past medical/surgical history, Social history. 2022-09-23 Most recent hospital stay(s) or ER visit(s) and precipitating factors: Denies recent ER/hospital visit 2022-09-23 Advance care planbenita blandon discussion. Conversation today with: member; Advance Care PlanDo you have an Advance Care Plan? NoDo you have a Durable Power of Clay Pigeon Loader for Healthcare, or Healthcare Proxy? NoIf so, Who?Code Status: UnknownOther Details of discussion (Who was present, patients description of wishes/goals):
--- OUTSIDE RECORDS SUMMARY | 2025-02-04 16:19 | XMS_ITS | Encounter Summary ---
Author Organization [facility] Address [address] [facility] [address] [place] [address] Care Team Providers Care Pipe Organ Technician Name Role Phone Colton Nelson MD Primary Care Provide r Reason for Visit * Reason Comments Med Refill Encounter Details Date Type Department Care Team ([facility] st Contact Info) Description 04/21/2024 Refill [facility] [address] [place], [place] [phone] Constance Wiggins MD [address] [place], [place] [phone] Chronic obstructive pulmonary disease, unspecified COPD type [...] Description 02/18/2025 9:00 AM EDT Clinical Support [facility] [address] [place] [phone] Maria Isabel Elam RN [address] [place] [address] 03/16/2025 1:00 PM EDT Office Visit [facility] [address] [place] [address] Xavier Kangaris [address] [place] [address] 04/07/2025 2:15 PM EDT Office Visit [facility] [address] [place] [phone] Colton Nelson MD [address] [place] [address] documented as of this encounter Visit Diagnoses Diagnosis Chronic obstructive pulmonary disease, unspecified COPD type (CMS/HCC) documented in this encounter Additional Health Concerns Assessment Noted Time PHQ-9 Depression Total Score: 0 12/17/19 23 10:18 AM EST documented as of this encounter Care Teams Pipe Organ Technician Relationship Specialty Start Date End Date Colton Nelson MD [address] [place] [phone] PCP - General Internal Medicine 05/04/20 documented as of this encounter
--- OUTSIDE RECORDS SUMMARY | 2025-02-04 16:19 | XMS_ITS | Encounter Summary ---
Author Organization [employer] Address [address] [facility] 7[address] [place] [address] Care Team Providers Care Physiotherapy Assistant Name Role Phone Colton Nelson MD Primary Care Provide r Reason for Visit * Reason Onset Date Comments Med Refill 01/17/2025 Encounter Details Date Type Department Care Team ([facility] st Contact Info) Description 01/17/2025 Refill [facility] [address] [place], [place] [phone] Colton Nelson MD [address] [place] [address] Chronic obstructive pulmonary disease, unspecified COPD type [...] Description 02/18/2025 9:00 AM EDT Clinical Support [facility] [address] [place] [phone] Maria Isabel Elam, ELEAZAR [address] [place] [address] 03/16/2025 1:00 PM EDT Office Visit [facility] ADULT [facility] [address] [place] [phone] Xavier Kangaris [address] [place] [phone] 04/07/2025 2:15 PM EDT Office Visit [facility] [address] [place] [address] Colton Nelson MD [address] [place] [phone] documented as of this encounter Visit Diagnoses Diagnosis Chronic obstructive pulmonary disease, unspecified COPD type (CMS/[facility]) documented in this encounter Additional Health Concerns Assessment Noted Time PHQ-9 Depression Total Score: 0 05/11/20 24 1:30 PM EDT documented as of this encounter Care Teams Physiotherapy Assistant Relationship Specialty Start Date End Date Colton Nelson MD [address] [place] [address] PCP - General Internal Medicine 05/04/20 documented as of this encounter
--- OUTSIDE RECORDS SUMMARY | 2025-02-04 16:19 | XMS_ITS | Encounter Summary ---
Author Organization [employer] [facility] Address [address] [facility] 7[address] [place] [address] Care Team Providers Care Inside Contractor Sales Name Role Phone Colton Nelson MD Primary Care Provide r Reason for Visit * Reason Comments Med Refill Encounter Details Date Type Department Care Team ([facility] st Contact Info) Description 06/18/2024 Refill [facility] [address] [place], [place] [phone] Colton Nelson MD [address] [place], [place] [phone] Chronic obstructive pulmonary disease, unspecified COPD type [...] 9:00 AM EDT Clinical Support [facility] [address] [place] [phone] Maria Isabel Elam RN [address] [place] [address] 03/16/2025 1:00 PM EDT Office Visit [facility] ADULT DENTAL [address] [place] [phone] Xavier Kangaris [address] [place] [address] 04/07/2025 2:15 PM EDT Office Visit [facility] [address] [place] [phone] Colton Nelson MD [address] [place] [phone] documented as of this encounter Visit Diagnoses Diagnosis Chronic obstructive pulmonary disease, unspecified COPD type (CMS/HCC) documented in this encounter Additional Health Concerns Assessment Noted Time PHQ-9 Depression Total Score: 0 05/11/20 24 1:30 PM EDT documented as of this encounter Care Teams Inside Contractor Sales Relationship Specialty Start Date End Date Colton Nelson MD [address] [place] [phone] PCP - General Internal Medicine 05/04/20 documented as of this encounter
--- OUTSIDE RECORDS SUMMARY | 2025-02-04 16:19 | XMS_ITS | Encounter Summary ---
Author Organization [employer] Address [address] [facility] [address] [place] [address] Care Team Providers Care Wholesale Diamond Broker Name Role Phone Colton Nelson MD Primary Care Provide r Reason for Visit * Reason Comments Med Refill Encounter Details Date Type Department Care Team (Late st Contact Info) Description 05/17/2024 Refill [facility] [address] [place], [place] [phone] Ashley Carrion, ANP [address] [place] [address] Lumbar disc herniation Social History Tobacco Use [...] Description 02/18/2025 9:00 AM EDT Clinical Support [facility] [address] [place] [phone] Maria Isabel Elam, RN [address] [place] [address] 03/16/2025 1:00 PM EDT Office Visit [facility] ADULT DENT[facility] [address] [place] [phone] Pearl, Brielle [address] [place] [address] 04/07/2025 2:15 PM EDT Office Visit [facility] [address] [place] [phone] Colton Nelson MD [address] [place] [phone] documented as of this encounter Visit Diagnoses Diagnosis Lumbar disc herniation Displacement of lumbar intervertebral disc without myelopathy documented in this encounter Additional Health Concerns Assessment Noted Time PHQ-9 Depression Total Score: 0 05/11/20 24 1:30 PM EDT documented as of this encounter Care Teams Wholesale Diamond Broker Relationship Specialty Start Date End Date Colton Nelson MD [address] [place] [phone] PCP - General Internal Medicine 05/04/20 documented as of this encounter
--- OUTSIDE RECORDS SUMMARY | 2025-02-04 16:19 | XMS_ITS | Clinical Summary ---
Author Organization [employer] Address [address] [place] [address] Care Team Providers Care County Surveyor Name Role Phone Colton Nelson MD Primary Care Provide r Allergies Active Allergy Reactions Criticality Noted Date Comments Hydrochlorothiazide Rash Low 11/09/2010 Lisinopril 06/20/2014 Olmesartan Unknown 11/09/2010 Medications * This document contains information received from the source organization and may not represent a complete record from that organization. naloxone (Narcan) 4 mg/0.1 mL nasal spray Administer 0.1 mL into affected nostril(s). [place] 0.1 milliliter by intranasal route in 1 [...] MOUTH THREE TIMES DAILY NEEDED 20 tablet 023 Active ketotifen (Alaway) 0.025 % ophthalmic solution INSTILL 1 DROP BY OPHTHALMIC ROUTE TWICE A DAY INTO THE AFFECTED EYE(S) 5 mL 5 Active glucose blood (OneTouch Ultra) test strip TEST BLOOD SUGAR TWICE A DAY 100 each 11 Active OneTouch Delica Lancets 33G misc 1 vial before breakfast, before lunch, and before evening meal. TEST BLOOD SUGAR TWICE A DAY 100 each 11 Active Blood Glucose Monitoring Suppl (ONE TOUCH ULTRA 2) w/Device kit 1 vial with breakfast, with lunch, and with evening meal. Test 1 times by intradermal route 2 times every day 1 kit Active Ventolin HFA 108 (90 Base) MCG/ACT inhaler INHALE 2 PUFFS BY MOUTH EVERY 4 TO 6 HOURS NEEDED FOR WHEEZING Active fluticasone (Flonase Allergy Relief) 50 MCG/ACT [...] mouth if needed at bedtime (sleep). Active rOPINIRole (Requip) 4 MG tablet TAKE 1 TABLET BY MOUTH AT BEDTIME 30 tablet 5 Active omeprazole (PriLOSEC) [address] capsule TAKE 1 CAPSULE BY MOUTH EVERY MORNING 90 capsule 3 Active cholecalciferol VITAMIN D (Vitamin D-3) 50 MCG (1999 UT) tablet TAKE 1 TABLET BY MOUTH EVERY MORNING 90 tablet 3 Active amLODIPine (Norvasc) 10 MG tabletIndication s:Primary hypertension TAKE 1 TABLET BY MOUTH EVERY MORNING 90 tablet Active montelukast (Singulair) 10 MG tabletIndication s:Pulmonary emphysema, unspecified emphysema type (CMS/HCC) TAKE 1 TABLET BY MOUTH EVERY MORNING 90 tablet 024 Active chlorthalidone (Hygroton) 25 MG tabletIndication s:Essential hypertension TAKE 1 TABLET BY MOUTH EVERY MORNING 30 tablet 3 025 Active sildenafil (Viagra) 100 MG tabletIndication s:Erectile dysfunction due to arterial insufficiency Take 1 tablet (100 mg) by mouth if needed each day for erectile dysfunction. 15 tablet 3 025 Active Advair HFA 115-21 MCG/ACT inhaler INHALE 2 PUFFS BY MOUTH TWICE DAILY FOR ASTHMA / (for COPD) RINSE MOUTH AFTER USING. 12 g 11 025 Active albuterol (2.5 MG/3ML) 0.083% nebulizer solutionIndicati ons:Chronic obstructive pulmonary disease, unspecified COPD type (CMS/HCC) INHALE 1 AMPULE USING A NEBULIZER EVERY 4 HOURS NEEDED FOR WHEEZING 90 mL 3 025 Active oxyCODONE-acetam inophen (Percocet) 5-325 MG tabletIndication s:Lumbar disc herniation Take 1 tablet by mouth every 6 (six) hours if needed for severe pain. 20 tablet 025 Active glipiZIDE XL (Glucotrol XL) 2.5 MG 24 hr tablet TAKE 1 TABLET BY MOUTH EVERY MORNING BEFORE BREAKFAST FOR BLOOD SUGAR > 150 90 tablet 1 025 Active metFORMIN (Glucophage) 1000 MG tabletIndication s:Type 2 diabetes mellitus without complication, without long-term current use of insulin (CMS/[facility]) TAKE 1 TABLET BY MOUTH TWICE DAILY IN THE MORNING AND IN THE EVENING WITH FOOD 180 tablet 1 025 Active simvastatin (Zocor) 10 MG tablet TAKE 1 TABLET BY MOUTH EVERY EVENING 90 tablet 1 025 Active Advair HFA 115-21 MCG/ACT inhaler INHALE 2 PUFFS BY MOUTH TWICE DAILY FOR ASTHMA / COPD 12 g 11 023 2024 Discontinued metFORMIN (Glucophage) 1000 MG tabletIndication s:Type 2 diabetes mellitus without complication, without long-term current use of insulin (CMS/HCC) TAKE 1 TABLET BY MOUTH TWICE DAILY IN THE MORNING AND IN THE EVENING WITH FOOD 180 tablet 1 024 2024 Discontinued simvastatin (Zocor) 10 MG tablet TAKE 1 TABLET BY MOUTH EVERY EVENING 90 tablet 1 024 2024 Discontinued glipiZIDE XL (Glucotrol XL) 2.5 MG 24 hr tablet TAKE 1 TABLET BY MOUTH EVERY DAY IF BLOOD SUGAR > 150 IN THE MORNING (BEFORE BREAKFAST) 90 tablet 1 024 2024 Discontinued albuterol (2.5 MG/3ML) 0.083% nebulizer solutionIndicati ons:Chronic obstructive pulmonary disease, unspecified COPD type (CMS/HCC) INHALE 1 AMPULE USING A NEBULIZER EVERY 4 HOURS NEEDED FOR WHEEZING 90 mL 3 024 2024 Discontinued(R eorder (will not trigger notification to Pharmacy)) oxyCODONE-acetam inophen (Percocet) 5-325 MG tabletIndication s:Lumbar disc herniation TAKE 1 TABLET BY MOUTH EVERY 6 HOURS NEEDED FOR PAIN MODERATE 20 tablet 025 2024 Discontinued(R eorder (will not trigger notification to Pharmacy)) Active Problems Problem Noted Date Diagnosed Date Anxiety 02/04/2025 Assessment & Plan (02/04/2025 4:15 PM EDT): Counseling done today [facility] was called, services were offered and also he was referred for psychiatry services Forgetfulness 02/04/2025 Assessment & Plan (02/04/2025 4:16 PM EDT): Patient is showing clinical signs of dementia, I will order blood work to rule out reversible causes for the symptoms Patient will also be seen by nurse for Mini-Mental status Patient also referred today to neurology clinic Mild depression 02/04/2025 Routine physical examination 12/21/2024 Assessment & Plan [...] dry mouth with nasal mask, seen by Men'S Basketball Coach 01/22/2024 who gave him a prescription for full face mask AIRFIT 30 Assessment & Plan (09/18/2023 8:22 AM EDT): ALLY well managed on CPAP C/o dry mouth with nasal mask, seen by Men[employer]S Basketball Coach 09/08/2023 who gave him a prescription for [...] he has yet to hear from the [facility] office, I have my MA once again to look jnto it Pancreatic screening guidelines are emerging Essential hypertension 10/26/2022 Assessment & Plan (02/04/2025 4:14 PM EDT): Today patient's blood pressure is elevated, he and daughter tells me that he forgot completely to take his medication today also he is feeling today very anxious I advised to take his medication as soon as he gets home, I also advised low- sodium diet follow-up with PCP Assessment & Plan (12/21/2024 10:05 AM EST): [...] AM EST): Pt last seen by his Men'S Basketball Coach Dr Denney 11/11/2024 He is on Advair HFA 2 puffs BID and instructed to use Albuterol PRN only Assessment & Plan (11/11/2024 11:25 AM EST): Pt last seen by his Men'S Basketball Coach Dr Denney 11/11/2024 He is on Advair HFA 2 puffs BID and instructed to use Albuterol PRN only Assessment & Plan (05/11/2024 1:44 PM EDT): Pt last seen by his Men'S Basketball Coach Dr Denney 01/22/2024 He is on Advair [...] EST): Pt here recently seen by his Men'S Basketball Coach Dr Denney 01/22/2024 He is on Advair HFA 2 puffs BID and instructed to use Albuterol PRN only Assessment & Plan (09/18/2023 8:20 AM EDT): Pt here with c/o asthma acting up recently , c/o more wheezing . Recently seen by his Men'S Basketball Coach Dr Denney 09/08/2023 who gave him a [...] on MS contin. Under the care of [facility]. Last note 08/2023 Pt requesting a [...] has been seen in the past at [facility]. Pt requesting a handycap placard Assessment [...] has been seen in the past at [facility]. Restless legs 08/14/2012 Assessment & Plan [...] of left little finger 10/05/2024 12/21/2024 Encounters * This document contains information received from the source organization and may not represent a complete record from that organization. Date Type Department Care Team Description 02/04/2025 1:30 PM EDT Office Visit [facility] [address] [place] [address] Constance Wiggins MD Anxiety (Primary Dx); Forgetfulness; Essential hypertension 02/04/2025 Travel 02/03/2025 Telephone [facility] [address] [place] [address] Colton Nelson MD Nurse Triage 02/02/2025 Refill [facility] [address] [place] [address] Colton Nelson MD Type 2 diabetes mellitus without complication, without long-term current use of insulin ([facility]) 01/17/2025 Refill [facility] [address] [place] [address] Colton Nelson MD Lumbar disc herniation 01/17/2025 Refill [facility] [address] [place] [address] Colton Nelson MD Chronic obstructive pulmonary disease, unspecified COPD type ([facility]) 01/14/2025 Travel 01/14/2025 Telephone [facility] [address] [place] [address] Maria Isabel Elam, RN senior bioinformatics scientist 01/14/2025 Telephone [facility] [address] [place] [phone] Colton Nelson MD Med Refill 01/12/2025 Refill [facility] [address] [place] [phone] Colton Nelson MD 12/21/2024 1:30 PM EST Office Visit [address] [address] Colton Nelson MD Essential hypertension (Primary Dx); Pulmonary emphysema, unspecified emphysema type (CMS/HCC); Type 2 diabetes mellitus without complication, without long-term current use of insulin ([facility]); Mixed hyperlipidemia; Obesity (BMI 30-39.9); Dietary counseling; Exercise counseling; Routine physical examination; Preventative health care; Erectile dysfunction due to arterial insufficiency 12/21/2024 Travel 12/15/2024 Refill [facility] [address] [place] [address] Colton Nelson MD Lumbar disc herniation 12/10/2024 Telephone [facility] [address] [place] [phone] Colton Nelson MD Chart Prep 12/09/2024 Patient Outreach [address] [address] Colton Nelson MD Pre-visit Planning (SDOH Screening negative and Tobacco screening negative) 11/18/2024 Travel 11/18/2024 Telephone [facility] [address] [place] [address] Maria Isabel Elam RN 11/18/2024 Telephone [facility] [address] [place] [phone] Colton Nelson MD Appointment Request 11/12/2024 Refill [facility] [address] [place] [address] Colton Nelson MD Lumbar disc herniation 11/11/2024 3:00 PM EST Office Visit [facility] [address] [place] [address] Colton Nelson MD Essential hypertension (Primary Dx); Type 2 diabetes mellitus without complication, without long-term current use of insulin ([facility]); BPH without urinary obstruction; Elevated PSA; Incomplete tear of right rotator cuff, unspecified whether traumatic; Pulmonary emphysema, unspecified emphysema type ([facility]/HCC); Lumbar radiculopathy 11/11/2024 Travel 11/10/2024 Telephone [facility] [address] [place], [place] [phone] Colton Nelson MD Nurse Triage from Last 3 Months Immunizations Name Administration [...] 20 02/04/2025 1:38 PM EDT Oxygen Saturation 94% 12/21/2024 1:27 PM EST Inhaled Oxygen Concentration - - Weight 82.4 kg (181 lb 9.6 oz) 02/04/2025 1:38 P M EDT Height 162.6 cm (5' 4 ) 02/04/2025 1:38 PM EDT Body Mass Index 31.17 02/04/2025 1:38 PM EDT Plan of Treatment Upcoming Encounters Date Type Department Care Team (Late st Contact Info) Description 02/18/2025 9:00 AM EDT Clinical Support [facility] [address] [place] [address] Maria Isabel Elam RN [address] [place] [address] 03/16/2025 1:00 PM EDT Office Visit [facility] ADULT DENTAL [address] [place] [address] Brielle Kang [address] [place] [address] 04/07/2025 2:15 PM EDT Office Visit [facility] [address] [place] [address] Colton Nelson MD [address] [place] [address] Health Maintenance Due Date Last Done Comments Eye Exam 1955 RSV Patients and Patients Aged 60 years or older (1 - 1-dose 75+ series) 2022 Dental Oral Exam 03/11/2025 09/09/2024, 02/17/2023 Dental Prophylaxis 03/15/2025 09/13/2024, 1 12/28/2022, 02/17/2023 Diabetes: Hemoglobin A1C 05/12/202511/11/2 024, 08/12/2024, 08/06/2024, Additional history exists Depression Monitoring (PHQ-9) 08/07/2025 02/04/2025, 02/04/2025 Diabetes: Foot Exam 08/12/2025 08/12/2024, 08/12/2024, 08/12/2024, Additional history exists Dental X-Ray: Bitewings 09/10/2025 09/09/2024, 02/17 Alcohol/Substance Use Screening 11/11/2025 11/11/2024 SDOH Screening 12/09/2025 12/09/2024 Diabetes: Urine Protein Screening 12/29/2025 12/29/2024, 04/19/2022, 02/12/2021, Additional history exists Lipid Panel 12/29/2025 12/29/2024, 01/23, 04/19/2022, Additional history exists Depression Screening 02/04/2026 02/04/2025, 02/05/20 Tobacco Screening 02/04/2026 02/04/2025 Dental X-Ray: Full Mouth 02/18/2026 02/17/2023 DTaP/Tdap/Td [...] Procedure Name Priority Date/Time Associated Diagnosis Comments LIPID PANEL, STANDARD Routine 12/29/2024 10:54 AM EST Essential hypertension Type 2 diabetes mellitus without complication, without long-term current use of insulin (CMS/HCC) ALBUMIN, RANDOM URINE W/CREATININE Routine 12/29/2024 10:54 AM EST Type 2 diabetes mellitus without complication, without long-term current use of insulin (CMS/HCC) COMPREHENSIVE METABOLIC PANEL Routine 12/29/2024 10:54 AM EST Essential hypertension POCT GLUCOSE Routine 12/21/2024 1:40 PM EST Type 2 diabetes mellitus without complication, without long-term current use of insulin (CMS/HCC) POCT GLYCATED HEMOGLOBIN, TOTAL Routine 11/11/2024 2:57 PM EST Type 2 diabetes mellitus without complication, without long-term current use of insulin (CMS/HCC) POCT GLUCOSE Routine 11/11/2024 2:55 PM EST Type 2 diabetes mellitus without complication, without long-term current use of insulin (CMS/HCC) Full PROPHYLAXIS - ADULT Routine 09/13/2024 1:00 PM EDT Dental calculus BITEWINGS - 4 RADIOGRAPHIC IMAGES Routine 09/09/2024 3:30 PM EDT PERIODIC ORAL EVALUATION - ESTABLISHED PATIENT Routine 09/09/2024 3:30 PM EDT INTRAORAL - COMPLETE SERIES OF RADIOGRAPHIC IMAGES Routine 02/17/2023 10:00 AM EDT Periodontal disease Dental calculus ZZZ HISTORICAL HEPATITIS C AB W/REFL TO HCV RNA, QN, PCR Routine 04/19/2022 8:52 AM EDT HM COLONOSCOPY Routine 08/18/2020 from Last 3 Months or Most Recently Relevant to Health Maintenance Results * Albumin, Random Urine W/Creatinine (12/29/2024 10:54 AM EST) Creatinine, Urine 462.90 mg/dL [facility] Microalbumin Urine 47.0 mg/L [facility] Microalbum Creatinine Ratio Ur 10.1 <30 ug/mg cr [facility] Comment:Albumin/Creatinine R atio Reference Ranges: Normal: < 30 ug/mg creatinine Microalbuminuria: 30 - 300 ug/mg creatinineClinical Albuminuria: > 300 ug/mg creatinine Urine (Urine, Random) 12/29/2024 10:54 AM EST 12/29/2024 12:58 PM EST us Colton De Leon MD LAB URINE ORDERABLES Final Result [facility] [address] [place] [phone] * Lipid Panel, Standard (12/29/2024 10:54 AM EST) Triglycerides 84 <150 mg/dL [facility] Comment:Desirable Triglyceri de: less than 150 mg/dLBorderline High Triglyceride 150-199 mg/dLHigh Triglyceride: 200-499 mg/dLVery High Triglyceride: greater than or equal to 5OO mg/dL Cholesterol 131 <200 mg/dL [facility] Comment:Desirable Cholestero l: less than 200 mg/dLBorderline High Cholesterol: 200-239 mg/dLHigh Cholesterol: greater than 239 mg/dL LDL Cholesterol Calculated 58 <100 mg/dL [facility] Comment:Desirable LDL: less than 100 mg/dLNear Optimal/Above Optimal LDL: 110- 129 mg/dLBorderline High LDL: 130-159 mg/dLHigh LDL: 160-189 mg/dLVery High LDL: greater than or equal to 190 mg/dL HDL Cholesterol 57 >40 mg/dL [facility] Comment:Desirable HDL: great er than 40 mg/dL Note: This HDL assay may give artificially low results in patients with liver disease. Blood Venous blood specimen / Unknown 12/29/2024 10:54 AM EST 12/29/2024 12:59 PM EST Colton De Leon MD LAB BLOOD ORDERABLES Final Result Performing Organization Address City/[facility]/ZIP Co de Phone Number [facility] [address] [place] [phone] * (ABNORMAL) Comprehensive Metabolic Panel (12/29/2024 10:54 AM EST) Sodium 136 135 - 145 mmol/L [facility] Potassium 3.7 3.3 - 5.1 mmol/L [facility] Chloride 97 96 - 108 mmol/L [facility] Carbon Dioxide 31(H) 22 - 29 mmol/L [facility] Anion Gap 12 12 - 20 [facility] Urea Nitrogen (BUN) 12 9 - 16 mg/dL [facility] Creatinine, Serum 1.02 0.5 - 1.4 mg/dL [facility] Estimated Glomerular Filt Rate >60 [facility] Comment:Chronic Kidney Disea se: Estimated GFR < 60 mL/min/1.50g9Metvtf Kidney Disease: Estimated GFR < 15 mL/min/1.73m2 Glucose 169(H) 60 - 115 mg/dL [facility] Calcium 9.8 8.4 - 10.2 mg/dL [facility] Bilirubin, Total 0.9 0.0 - 1.0 mg/dL [facility] Aspartate Amino Transferase 21 5 - 37 U/L [facility] Alanine Aminotransferase 14 0 - 40 U/L [facility] Total Protein 8.2(H) 6.5 - 8.0 g/dL [facility] Albumin Level 4.1 3.5 - 5.0 g/dL [facility] Alkaline Phosphatase 81 39 - 117 U/L [facility] Blood Venous blood specimen / Unknown 12/29/2024 10:54 AM EST 12/29/2024 12:59 PM EST Colton De Leon MD LAB BLOOD ORDERABLES Final Result [facility] [address] [place] [phone] * (ABNORMAL) POCT Glucose (12/21/2024 1:40 PM EST) Only the most recent of2 resultswithin the time period is included. Glucose Blood, POC 214(A) 60 - 200 mg/dL [employer] Lot # [id number] Lot# Expiration Date 025 Blood Capillary blood specimen / Unknown 12/21/2024 1:40 PM EST Result [facility] us Colton De Leon MD POINT OF CARE TEST EN TER/EDIT ORDERABLES Final Result * (ABNORMAL) POCT HGB A1C (11/11/2024 2:57 PM EST) Hemoglobin A1C 6.8(A) 4.0 - 6.0 % QC Media Lot # [id number] Lot# Expiration Date Blood 11/11/2024 2:57 PM EST Result [facility] us Coltno De Leon MD POINT OF CARE TEST EN TER/EDIT ORDERABLES Final Result * HEPATITIS C AB W/REFL TO HCV RNA, QN, PCR (04/19/2022 8:52 AM EDT) Pathologist [facility] HEPATITIS C ANTIBODY NON-REACT [place] NON-REACT [place] [facility] INDEX 0.02 <1.00 [facility] Comment: ?? HCV antibody was non-reactive. There is no laboratory ?? evidence of HCV infection. ?? In most cases, no further action is required. However, if recent HCV exposure is suspected, a test for HCV RNA (test code 71953) is suggested. ?? For additional information please refer to http://education.[employer]/faq/BFL87u9 (This link is being provided for informational/ educational purposes only.) ?? 04/19/2022 8:52 AM EDT Result Shyla De Leon MD HISTORICAL/NON ORDERA BLE LABS Final Result [facility] [address] * Colonoscopy (08/18/2020) Colonoscopy Normal Normal 08/18/2020 Jacquelin Caballero - 08/18/2020 9:26 AM EDT Recommended 10 year follow up Historical Provider HEALTH MAINTENANCE Final Result from Last 3 Months or Most Recently Relevant to Health Maintenance Insurance [facility] - [facility] Advance Directives Documents on File Type Date Recorded Patient Rubber Belt Splicer Expl anation Advance Directives and Living Will 02/06/2024 8:49 AM Health Care Proxy Care Teams County Surveyor Relationship Specialty Start Date End Date Colton Nelson MD [address] [facility] [place] [address] PCP - General Internal Medicine 05/04/20
--- OUTSIDE RECORDS SUMMARY | 2025-02-04 16:19 | XMS_ITS | Encounter Summary ---
Author Organization [facility] Address [address] [place] [address] 7[address] [place] [address] Care Team Providers Care Internet Sales Associate Name Role Phone Colton Nelson MD Primary Care Provide r Encounter Details Date Type Department Care Team (Latest Contact Info) Description 08/09/2019 Abstract [facility] Dental, Provider, DDS Social History [...] Description 02/18/2025 9:00 AM EDT Clinical Support [facility] [address] [place] [phone] Maria Isabel Elam RN [address] [place] [address] 03/16/2025 1:00 PM EDT Office Visit [facility] ADULT D[facility] [address] [place] [address] Xavier Kangaris [address] [place] [address] 04/07/2025 2:15 PM EDT Office Visit [facility] [address] [place] [phone] Colton Nelson MD [address] [place] [address] documented as of this encounter Visit Diagnoses Not on filedocumented in this encounter Care Teams Internet Sales Associate Relationship Specialty Start Date End Date Colton Nelson MD [address] [place] [address] PCP - General Internal Medicine 05/04/20 documented as of this encounter
--- OUTSIDE RECORDS SUMMARY | 2025-02-04 16:19 | XMS_ITS | Encounter Summary ---
Author Organization [employer] Address [address] [facility] 7[address] [place] [address] Care Team Providers Care Technical Support Consultant Name Role Phone Colton Nelson MD Primary Care Provide r Reason for Visit * Reason Onset Date Comments Appointment Request 10/30/2023 Encounter Details Date Type Department Care Team ([facility] st Contact Info) Description 10/30/2023 Telephone [facility] [address] [place], [place] [phone] Colton Nelson MD [address] [place], [place] [phone] Appointment Request Social History Tobacco Use Types [...] * Telephone Encounter - Sawyer Jamin - 10/30/2023 11:49 AM EST Tc from pt requesting to r/s his [facility] visit. Please contact pt at [phone]. documented in this encounter Plan of Treatment Upcoming Encounters Date Type Department Care Team (Late st Contact Info) Description 02/18/2025 9:00 AM EDT Clinical Support [facility] [address] [place] [phone] Maria Isabel Elam RN [address] [place] [address] 03/16/2025 1:00 PM EDT Office Visit [facility] ADULT DENTAL [address] [place] [phone] Brielle Kang [address] [place] [address] 04/07/2025 2:15 PM EDT Office Visit [facility] [address] [place] [phone] Colton Nelson MD [address] [place] [phone] documented as of this encounter Visit Diagnoses Not on filedocumented in this encounter Additional Health Concerns Assessment Noted Time PHQ-9 Depression Total Score: 0 12/17/19 10:18 AM EST documented as of this encounter Care Teams Technical Support Consultant Relationship Specialty Start Date End Date Colton Nelson MD [address] [place] [address] PCP - General Internal Medicine 05/04/20 documented as of this encounter
--- OUTSIDE RECORDS SUMMARY | 2025-02-04 16:19 | XMS_ITS | Encounter Summary ---
Author Organization [employer] Address 75 [facility] 7t [place] [address] Care Team Providers Care Air Reduction Equipment Operator Name Role Phone Colton Nelson MD Primary Care Provide r Reason for Visit * Reason Comments Med Refill Encounter Details Date Type Department Care Team ([facility] st Contact Info) Description 02/02/2025 Refill [facility] MEDICINE 230 [place], [place] [phone] Colton Nelson MD 230 [place], [place] [phone] Type 2 diabetes mellitus without complication, without long-term current use of insulin ([facility]) Social History Tobacco Use Types Packs/Day Years [...] Description 02/18/2025 9:00 AM EDT Clinical Support [facility] MEDICINE [address] [place] [address] Maria Isabel Elam, ELEAZAR 505 [place] [address] 03/16/2025 1:00 PM EDT Office Visit [facility] ADULT DENTAL [address] [place] [address] Brielle Kang [address] [place] [address] 04/07/2025 2:15 PM EDT Office Visit [facility] MEDICINE [address] [place] [address] Colton Nelson MD [address] [place] [address] documented as of this encounter Visit Diagnoses Diagnosis Type 2 diabetes mellitus without complication, without long-term current use of insulin ([facility]) documented in this encounter Additional Health Concerns Assessment Noted Time PHQ-9 Depression Total Score: 0 05/11/20 24 1:30 PM EDT documented as of this encounter Care Teams Air Reduction Equipment Operator Relationship Specialty Start Date End Date Colton Nelson MD 230 [place] [address] PCP - General Internal Medicine 05/04/20 documented as of this encounter
--- OUTSIDE RECORDS SUMMARY | 2025-02-04 16:19 | XMS_ITS | Encounter Summary ---
Author Organization [employer] Address 75 [facility] 7t [place] [address] Care Team Providers Care Sales Team Leader Name Role Phone Colton Nelson MD Primary Care Provide r Reason for Visit * Reason Comments Med Refill Encounter Details Date Type Department Care Team ([facility] st Contact Info) Description 01/12/2025 Refill [facility] MEDICINE 230 [place], [place] [phone] Colton Nelson MD 230 [place], [place] [phone] Social History Tobacco Use Types Packs/Day Years [...] Description 02/18/2025 9:00 AM EDT Clinical Support [facility] MEDICINE [address] [place] [address] Maria Isabel Elam, RN 505 [place] [address] 03/16/2025 1:00 PM EDT Office Visit [facility] ADULT DENTAL [address] [place] [address] Brielle Kang 230 [place] [address] 04/07/2025 2:15 PM EDT Office Visit [facility] MEDICINE [address] [place] [address] Colton Nelson MD [address] [place] [address] documented as of this encounter Visit Diagnoses Not on filedocumented in this encounter Additional Health Concerns Assessment Noted Time PHQ-9 Depression Total Score: 0 05/11/20 24 1:30 PM EDT documented as of this encounter Care Teams Sales Team Leader Relationship Specialty Start Date End Date Colton Nelson MD [address] [place] [address] PCP - General Internal Medicine 05/04/20 documented as of this encounter
--- OUTSIDE RECORDS SUMMARY | 2025-02-04 16:19 | XMS_ITS | Encounter Summary ---
Author Organization [employer] Address [address] [place] [address] Care Team Providers Care Extermination Inspector Name Role Phone Colton Nelson MD Primary Care Provide r Reason for Visit * Reason Comments Med Refill Encounter Details Date Type Department Care Team (Late st Contact Info) Description 03/27/2023 Refill [facility] MEDICINE [address] [place] [phone] Roxi Scott FNP [address] [place] [address] Dept [place] [address] Social History Tobacco Use Types Packs/Day Years [...] Description 02/18/2025 9:00 AM EDT Clinical Support [facility] MEDICINE [address] [place] [address] [phone] Maria Isabel Elam RN 505 [place] [address] 03/16/2025 1:00 PM EDT Office Visit [facility] ADULT DENTAL 230 [place], [place] [phone] Brielle Kang 230 [place] [address] 04/07/2025 2:15 PM EDT Office Visit [facility] MEDICINE 230 [place] [address] Colton Nelson MD 230 [place] [address] documented as of this encounter Visit Diagnoses Not on filedocumented in this encounter Additional Health Concerns Assessment Noted Time PHQ-9 Depression Total Score: 0 12/17/19 23 10:18 AM EST documented as of this encounter Care Teams Extermination Inspector Relationship Specialty Start Date End Date [place] [address] PCP - General Internal Medicine 05/04/20 documented as of this encounter
--- OUTSIDE RECORDS SUMMARY | 2025-02-04 16:20 | XMS_ITS | Encounter Summary ---
Author Organization [employer] Address 75 [facility] 7t [place] [address] Care Team Providers Care Breast Puller Name Role Phone Colton Nelson MD Primary Care Provide r Reason for Visit * Reason Onset Date Comments Call Back Request 05/13/2024 Encounter Details Date Type Department Care Team ([facility] st Contact Info) Description 05/13/2024 Telephone [facility] MEDICINE 230 [place], [place] [phone] Colton Nelson MD 230 [place], [place] [phone] Call Back Request Social History Tobacco Use [...] from pt requesting a call back with vice president of instruction, stated think he needs an appt but not sure about it. documented in this encounter Plan of Treatment Upcoming Encounters Date Type Department Care Team (Late st Contact Info) Description 02/18/2025 9:00 AM EDT Clinical Support [facility] MEDICINE [address] [place] [phone] Maria Isabel Elam, RN 505 [place] [address] 03/16/2025 1:00 PM EDT Office Visit [facility] ADULT DENTAL [address] [place] [address] Brielle Kang 230 [place] [address] 04/07/2025 2:15 PM EDT Office Visit [facility] MEDICINE [address] [place] [address] Colton Nelson MD 230 [place] [address] documented as of this encounter Visit Diagnoses Not on filedocumented in this encounter Additional Health Concerns Assessment Noted Time PHQ-9 Depression Total Score: 0 05/11/20 24 1:30 PM EDT documented as of this encounter Care Teams Breast Puller Relationship Specialty Start Date End Date Colton Nelson MD [address] [place] [address] PCP - General Internal Medicine 05/04/20 documented as of this encounter
--- OUTSIDE RECORDS SUMMARY | 2025-02-04 16:20 | XMS_ITS | Encounter Summary ---
Author Organization [employer] Address 75 [facility] 7t [place] [address] Care Team Providers Care Box Nailer Name Role Phone Colton Nelson MD Primary Care Provide r Reason for Visit * Reason Onset Date Comments Appointment Request 11/18/2024 Encounter Details Date Type Department Care Team ([facility] st Contact Info) Description 11/18/2024 Telephone [facility] MEDICINE 230 [place], [place] [phone] Colton Nelson MD 230 [place], [place] [phone] Appointment Request Social History Tobacco Use Types [...] the past 12 months, has t he [employer], gas, oil or water company threatened to [...] pt calling requesting call back to reschedule PERIOPERATIVE TECH visit. Please contact pt at [phone]. (Telugu Speaker) documented in this encounter Plan of Treatment Upcoming Encounters Date Type Department Care Team (Late st Contact Info) Description 02/18/2025 9:00 AM EDT Clinical Support [facility] MEDICINE [address] [place] [phone] Maria Isabel Elam RN 505 [place] [address] 03/16/2025 1:00 PM EDT Office Visit [facility] ADULT DENTAL 230 [place] [address] Brielle Kang 230 [place] [address] 04/07/2025 2:15 PM EDT Office Visit [facility] MEDICINE 230 [place] [address] Cloton Nelson MD 230 [place] [address] documented as of this encounter Visit Diagnoses Not on filedocumented in this encounter Additional Health Concerns Assessment Noted Time PHQ-9 Depression Total Score: 0 05/11/20 24 1:30 PM EDT documented as of this encounter Care Teams Box Nailer Relationship Specialty Start Date End Date Colton Nelson MD 230 [place] [address] PCP - General Internal Medicine 05/04/20 documented as of this encounter
--- OUTSIDE RECORDS SUMMARY | 2025-02-04 16:20 | XMS_ITS | Encounter Summary ---
Author Organization [employer] [facility] Address [address] [place] [address] 7t [place] [address] Care Team Providers Care Solar Systems Designer Name Role Phone Colton Nelson MD Primary Care Provide r Encounter Details Date Type Department Care Team (Latest Contact Info) Description 12/06/2021 Abstract [facility] CONVERSIONS Dental, Provider, DDS Social [...] Description 02/18/2025 9:00 AM EDT Clinical Support [facility] MEDICINE [address] [place] [phone] Maria Isabel Elam RN 505 [place] [address] 03/16/2025 1:00 PM EDT Office Visit [facility] ADULT DENTAL [address] [place] [address] Xavier Kangaris 230 [place] [address] 04/07/2025 2:15 PM EDT Office Visit [facility] MEDICINE [address] [place] [address] Colton Nelson MD 230 [place] [address] documented as of this encounter Visit Diagnoses Not on filedocumented in this encounter Care Teams Solar Systems Designer Relationship Specialty Start Date End Date Colton Nelson MD [address] [place] [address] PCP - General Internal Medicine 05/04/20 documented as of this encounter
[2025-02-04 16:31] LABS: MANUAL DIFF FLAG NO
[2025-02-04 16:35] LABS: Basophils Absolute Auto 0.1 X10*3/uL (0.0-0.2); Basophils Percent Auto 1.2 % (0-2); Eosinophils Absolute Auto 0.1 X10*3/uL (0.0-0.4); Hemoglobin 12.8 g/dl (14.0-18.0); Imm Gran Abs Auto 0.01 X10*3/uL (0.00-0.03); Imm Gran Pct Auto 0.2 % (0.0-0.4); Lymphocytes Absolute Auto 1.6 X10*3/uL (1.2-4.9); Lymphocytes Percent Auto 24.2 % (20-40); Mean Corpuscular HGB Conc 32.8 g/dl (31.0-36.0); Mean Corpuscular Hemoglobin 30.3 pg (27.0-33.0); Mean Corpuscular Volume 92.4 fL (80.0-98.0); Mean Platelet Volume 10.2 fL (9.4-12.4); Monocytes Absolute Auto 0.5 X10*3/uL (0.1-1.2); Neutrophils Absolute Auto 4.3 x10*3/uL (2.0-8.3); Neutrophils Percent Auto 65.4 % (45-73); Platelet Count 230 X10*3/uL (160-400); Red Blood Count 4.22 X10*6/uL (4.60-5.80); Red Cell Distribution Width 13.2 % (11.0-16.0); White Blood Count 6.6 X10*3/uL (4.8-10.8)
[2025-02-04 16:53] LABS: Estimated Average Glucose 157 mg/dL; Hemoglobin A1C 178.1382 umol/L; Hemoglobin A1c % 7.1 % (<6.0); Total Hemoglobin (HGBA1C) 3311.2765 umol/L
[2025-02-04 17:14] LABS: Alanine Aminotransferase 24 U/L (0-40); Alkaline Phosphatase 67 U/L (39-117); Anion Gap 11 (12-20); Aspartate Amino Transferase 26 U/L (5-37); Bilirubin Total 0.4 mg/dL (0.0-1.0); Blood Urea Nitrogen 9 mg/dL (9-16); Calcium 9.2 mg/dL (8.4-10.2); Carbon Dioxide 30 mmol/L (22-29); Chloride 104 mmol/L (96-108); Estimated Glomerular Filt Rate > 60; Glucose Random 105 mg/dL (60-115); Sodium 141 mmol/L (135-145); Total Protein 7.7 g/dL (6.5-8.0)
[2025-02-04 17:20] LABS: Alanine Aminotransferase 21 U/L (0-40); Alkaline Phosphatase 68 U/L (39-117); Anion Gap 13 (12-20); Aspartate Amino Transferase 26 U/L (5-37); Bilirubin Total 0.5 mg/dL (0.0-1.0); Blood Urea Nitrogen 8 mg/dL (9-16); Calcium 9.1 mg/dL (8.4-10.2); Carbon Dioxide 29 mmol/L (22-29); Chloride 104 mmol/L (96-108); Estimated Glomerular Filt Rate > 60; Glucose Random 106 mg/dL (60-115); Sodium 142 mmol/L (135-145); Total Protein 7.7 g/dL (6.5-8.0)
[2025-02-04 17:21] LABS: Folate 13.5 ng/mL (> or = 4.0); Vitamin B12 479 pg/mL (200-900)
[2025-02-04 17:25] LABS: TSH reflex Free T4 0.61 uIU/mL (0.32-4.0)
[2025-02-04 17:41] LABS: Creatinine Urine 157.11 mg/dL; Microalbum/Creatinine Ratio Ur 7.6 ug/mg cr (<30)
[2025-02-06 18:27] LABS: RPR Rapid Plasma Reagin NON-REACTIVE (NON-REACTIVE)
== END 2025-02-04 14:56 | disposition home or self-care (01) ==
LOC: HO.HHCL 14:55
PROVIDERS: Internal Medicine; Visit Provider Internal Medicine
DX: I10 Essential (primary) hypertension (principal); E11.9 Type 2 diabetes mellitus without complications; R68.89 Other general symptoms and signs
CPT/HCPCS: 36415; 80053; 82043; 82570; 82607; 82746; 83036; 84443; 85025; 86592

== ENCOUNTER 2025-03-09 10:55 | Outpatient (AMB) | payer OTHER, SELFPAY ==
[2025-03-09 11:01] VITALS: BP 130/60; PULSE 83; O2SAT 95; BMI 30.7
--- NOTE | 2025-03-09 11:01 | MHC.OFFVIS ---
Vital Signs 03/09/25 11:01 Height 5 ft 4 in Weight 179 lb BMI 30.7 BP 130/60 Blood Pressure Location Lt brachial Position Sitting Pulse 83 Pulse Source Pulse Oximeter Pulse Oximetry (%) 95 Oxygen Delivery Method Room Air Intake Visit Reasons: Asthma Intake Note: pt is here for follow up and states he does get wheeze going up stairs, was sick but on the mend Electric Brain Wave Equipment Mechanic Required: No Allergies hydrochlorothiazide Allergy (Unknown, Verified 03/09/25 11:12) unknown lisinopril Allergy (Unknown, Verified 03/09/25 11:12) unknown olmesartan Allergy (Unknown, Verified 03/09/25 11:12) unknown venom-honey bee Allergy (Unknown, Verified 03/09/25 11:12) unknown Medication List - Last Reconciled 03/09/25 by Celestina Denney MD acetaminophen 325 mg PO QID PRN albuterol sulfate 90 mcg/actuation (Ventolin HFA) 2 puffs PO Q4-6H PRN amlodipine 10 mg PO QAM celecoxib (Celebrex) 200 mg PO DAILY chlorthalidone 12.5 mg PO QAM cholecalciferol (vitamin D3) 50 mcg PO QAM diclofenac sodium 1% 2 grams topical QID fluticasone propion-salmeterol 115-21 mcg/actuation 2 puffs inhalation BID 30 days fluticasone propionate 50 mcg/actuation 2 sprays intranasal DAILY PRN glipizide ER 2.5 mg PO DAILY ipratropium-albuterol 0.5 mg-3 mg(2.5 mg base)/3 mL 3 mL inhalation Q6H PRN 30 days ketotifen fumarate 0.025%(0.035%) 1 drp ophthalmic (eye) BID leg brace (Knee Support Brace) knee support genumed [id number] leg brace (Knee Support Brace) Please reprint genumed rx leg brace (Knee Support Brace) knee support genumed [id number] levocetirizine 5 mg PO BEDTIME melatonin 10 mg PO BEDTIME metformin 1,000 mg PO BID montelukast 10 mg PO DAILY omeprazole 20 mg PO QAM oseltamivir 30 mg PO Q12H oxycodone-acetaminophen 5-325 mg 1 tab PO QID PRN ropinirole 4 mg PO BEDTIME sildenafil 100 mg PO DAILY PRN 30 days simvastatin 10 mg PO BEDTIME tadalafil 10 mg PO DAILY 90 days testosterone 2 pumps topical DAILY 30 days Do you need a note to return to daycare/school/sports/work: No HPI HPI Asthma: Details: THIS 79 YEARS OLD GENTLEMAN COMES AFTER. 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 HE IS USING HIS MEDICATIONS REGULARLY, BUT STILL GETS INTERMITTENT BOUTS OF COUGH. SOMETIME AT NIGHT WHEN HE HAS THE CPAP ON HE STARTS HAVING COUGH AND HAS TO REMOVE THE CPAP. SO HIS USE OF CPAP HAS BEEN SOMEWHAT ERRATIC. HE HAD 1 VISIT IN THE EMERGENCY ROOM BUT NOT HOSPITALIZED. OTHERWISE HE HAS BEEN RELATIVELY STABLE IN THE LAST 4 MONTHS, [facility] Medical History Allergic rhinitis RLS (restless legs syndrome) COPD (chronic obstructive pulmonary disease) ALLY on CPAP Obesity (BMI 30-39.9) RLS (restless legs syndrome) GERD (gastroesophageal reflux disease) COPD (chronic obstructive pulmonary disease) Carpal tunnel syndrome Lumbar disc herniation Back pain Syncope Arthritis Arrhythmia Asthma DMII (diabetes mellitus, type 2) HTN (hypertension) Surgical History History of cervical spinal surgery History of lumbosacral spine surgery History of cholecystectomy Family History Father Stroke Social History Household Members: Spouse Housing: Apartment Do you presently have visiting nurse or other home services: No (ACCOUNTING INTERN services at home 2x week) Alcohol intake: current Alcohol intake frequency: holidays/special occasions only Patient Tobacco Use Status: Former Tobacco user Tobacco use type: Cigarette e-Cigarette/Vaping Use: Former Use Current occupational status: retired Current occupation: rt handed Review of Systems Const All systems reviewed & are unremarkable except as noted in HPI and below Eyes Reports no additional complaints ENT Reports nasal congestion (Chronic intermittent, with minimal postnasal discharge.) Card Denies chest pain, Denies irregular heart rhythm and Denies leg edema Resp Reports as per HPI GI Reports no additional complaints Reports erectile dysfunction Musc Reports back pain and Reports arthralgias (knees ) Skin/Breast Reports system reviewed and no additional complaints, except as documented Neuro Reports no additional complaints Psych Reports no additional complaints Physical Exam Vital Signs: Last Vital Signs Pulse 83 03/09/25 11:01 BP 130/60 03/09/25 11:01 Pulse Ox 95 03/09/25 11:01 Oxygen Delivery Method Room Air 03/09/25 11:01 BMI result Body Mass Index 30.7 Const General: healthy appearing (Except for being overweight,, Weight down by 6 LBs .), comfortable, no acute distress, alert and awake Orientation/consciousness: patient oriented x3 HEENT Head: Yes normal to inspection General nose exam: No nasal polyps present and No nasal discharge present Face and sinus: Yes sinuses nontender Mouth: oropharynx normal Throat: Yes posterior oropharynx normal Eyes General: appearance normal, both eyes and all related structures Neck Neck: Yes normal visual inspection, Yes no lymphadenopathy, Yes trachea midline and Yes no JVD Thyroid: Thyroid normal Chest Chest palpation & inspection: normal inspection of the chest, normal palpation of entire chest wall and no tenderness Resp Other: Percussion note is resonant. Breath sounds are equal on both sides but quite distant with prolonged expiratory phase. A few scattered expiratory wheezes are heard in the upper chest. Cardio Palpation: normal PMI Rate: regular rate Rhythm: regular rhythm Heart sounds: no gallops and no murmurs GI Palpation (GI): Soft to palpation, nontender, No hepatosplenomegaly present and no masses Auscultation: normal bowel sounds Back/Spine/Pelvis Thoracic/Lumbar Spine: thoracic and lumbar spine normal to inspection and thoraco-lumbar ROM limited Skin General skin exam: no rashes or lesions noted Neuro General: patient oriented x3 and no focal motor deficits Cranial nerves: Yes CN's II-XII intact bilaterally Extrem General: Yes normal to inspection, Yes no clubbing, cyanosis or edema and Yes no calf tenderness Psych Appearance: grossly normal and well kempt Speech and movement: Normal speech and movement present Results Reviewed Results Reviewed: HE DOES NOT HAVE COMPLIANCE REPORT THIS TIME Assessment & Plan Assessment & Plan (1) COPD (chronic obstructive pulmonary disease): Comment: HAS CHRONIC ASTHMA/COPD , CURRENTLY WELL CONTROLLED AND STABLE. BUT HE IS PRONE TO HAVE ACUTE EXACERBATIONS QUITE FREQUENTLY. Code(s): J44.9 - Chronic obstructive pulmonary disease, unspecified Category: Medical Plan: ADVISED TO CONTINUE USING THE SAME REGIMEN WHICH INCLUDES FLUTICASONE-SALMETEROL 115-21 HFA 2 PUFFS B.I.D. ALSO HAS NEBULIZER AT HOME WITH THE IPRATROPIUM-ALBUTEROL SOLUTION AND IS SUPPOSED TO USE TWICE A DAY, HE IS INSTRUCTED TO USE IT UP TO 3 TIMES A DAY IF NEEDED. (2) ALLY on CPAP: Comment: OBSTRUCTIVE SLEEP APNEA , MANAGED VERY WELL WITH THE CPAP, BUT LATELY HAS BEEN SOMEWHAT NONCOMPLIANT. HE STATES THAT WHEN HE STARTS HAVING COUGH AT NIGHT HE HAS TO REMOVE THE CPAP. Code(s): G47.33 - Obstructive sleep apnea (adult) (pediatric); Z99.89 - Dependence on other enabling machines and devices Category: Medical Plan: ADVISE THAT HE SHOULD USE THE CPAP EVERY NIGHT, AND IF HE DOES REMOVE IT FOR SHORT TIME. THEN HE SHOULD PUT IT BACK ON (3) Allergic rhinitis: Comment: HAS CHRONIC ALLERGIC RHINITIS WHICH IS RELATIVELY CONTROLLED WITH HIS MAINTENANCE REGIMEN. Code(s): J30.9 - Allergic rhinitis, unspecified Category: Medical Plan: CONTINUE FLONASE 2 SPRAY IN EACH NOSTRIL DAILY (4) Obesity (BMI 30-39.9): Comment: HE IS MODERATELY OBESE, HE IS WELL AWARE OF THIS AND TRIES TO WATCH HIS DIET. Code(s): E66.9 - Obesity, unspecified Category: Medical Plan: AGAIN STRESSED THAT HE NEEDS TO WATCH HIS DIET AND TRY TO WALK DURING THE DAYTIME. HE NEEDS TO LOSE WEIGHT EVEN BY A FEW LB EVERY MONTH. Coding Level of Care Code Est Pt Level 3 (07020) Diagnoses COPD (chronic obstructive pulmonary disease) J44.9 ALLY on CPAP G47.33; Z99.89 Allergic rhinitis J30.9 Obesity (BMI 30-39.9) E66.9
--- OUTSIDE RECORDS SUMMARY | 2025-03-09 13:02 | XMS_ITS | Encounter Summary ---
Author Organization [employer] Address 75 [facility] 7t [place] [address] Care Team Providers Care Engine Repairer Name Role Phone Colton Nelson MD Primary Care Provide r Reason for Visit * Reason Comments Med Refill Encounter Details Date Type Department Care Team ([facility] st Contact Info) Description 10/09/2023 Refill [facility] MEDICINE 230 [place], [place] [phone] Colton Nelson MD 230 [place], [place] [phone] Social History Tobacco Use Types Packs/Day Years [...] Care Team (Late st Contact Info) Description 03/16/2025 1:00 PM EDT Office Visit [facility] ADULT DENTAL 230 [place] [address] Pearl, Brielle 230 [place] [address] 03/22/2025 11:00 AM EDT Clinical Support [facility] CHC MED & PEDS 505 [place] [address] Maria Isabel Elam, RN 505 [place] [address] 04/07/2025 2:15 PM EDT Office Visit [facility] MEDICINE 230 [place] [address] Colton Nelson MD 230 [place] [address] documented as of this encounter Visit Diagnoses Not on filedocumented in this encounter Additional Health Concerns Assessment Noted Time PHQ-9 Depression Total Score: 0 12/17/19 23 10:18 AM EST documented as of this encounter Care Teams Engine Repairer Relationship Specialty Start Date End Date Colton Nelson MD [address] [place] [address] PCP - General Internal Medicine 05/04/20 documented as of this encounter
--- OUTSIDE RECORDS SUMMARY | 2025-03-09 13:02 | XMS_ITS | Encounter Summary ---
Author Organization [employer] Address 75 [facility] 7t [place] [address] Care Team Providers Care Grinder Machine Setter Name Role Phone Colton Nelson MD Primary Care Provide r Encounter Details Date Type Department Care Team (Late st Contact Info) Description 11/13/2023 Abstract [facility] ADULT DENTAL 230 [place], [place] [phone] Xavier Kangaris 230 [place] [address] Social History Tobacco Use Types Packs/Day Years [...] Description 03/16/2025 1:00 PM EDT Office Visit [facility] ADULT DENTAL 230 [place] [address] Pearl, Brielle [address] [place] [address] 03/22/2025 11:00 AM EDT Clinical Support [facility] CH[facility] MED & PEDS 505 [place] [address] Maria Isabel Elam, RN 505 [place] [address] 04/07/2025 2:15 PM EDT Office Visit [facility] MEDICINE 230 [place] [address] Colton Nelson MD 230 [place] [address] documented as of this encounter Visit Diagnoses Not on filedocumented in this encounter Additional Health Concerns Assessment Noted Time PHQ-9 Depression Total Score: 0 12/17/19 23 10:18 AM EST documented as of this encounter Care Teams Grinder Machine Setter Relationship Specialty Start Date End Date Colton Nelson MD 230 [place] [address] PCP - General Internal Medicine 05/04/20 documented as of this encounter
--- OUTSIDE RECORDS SUMMARY | 2025-03-09 13:02 | XMS_ITS | Encounter Summary ---
Author Organization [employer] Address 75 [facility] 7t [place] [address] Care Team Providers Care Ornamenter Hand Name Role Phone Colton Nelson MD Primary Care Provide r Reason for Visit * Reason Onset Date Comments Appointment Request 10/30/2023 Encounter Details Date Type Department Care Team ([facility] st Contact Info) Description 10/30/2023 Telephone [facility] MEDICINE 230 [place], [place] [phone] Colton Nelson MD 230 [place], [place] [phone] Appointment Request Social History Tobacco Use Types [...] Tc from pt requesting to r/s his CONTRACTS INTERN visit. Please contact pt at [phone]. documented in this encounter Plan of Treatment Upcoming Encounters Date Type Department Care Team (Late st Contact Info) Description 03/16/2025 1:00 PM EDT Office Visit [facility] ADULT DENTAL 230 [place] [address] Pearl, Brielle [address] [place] [address] 03/22/2025 11:00 AM EDT Clinical Support [facility] CHC MED & PEDS 505 [place] [address] Maria Isabel Elam, RN 505 [place] [address] 04/07/2025 2:15 PM EDT Office Visit [facility] MEDICINE 230 [place] [address] Colton Nelson MD 230 [place] [address] documented as of this encounter Visit Diagnoses Not on filedocumented in this encounter Additional Health Concerns Assessment Noted Time PHQ-9 Depression Total Score: 0 12/17/19 10:18 AM EST documented as of this encounter Care Teams Ornamenter Hand Relationship Specialty Start Date End Date Colton Nelson MD 230 [place] [address] PCP - General Internal Medicine 05/04/20 documented as of this encounter
--- OUTSIDE RECORDS SUMMARY | 2025-03-09 13:02 | XMS_ITS | Encounter Summary ---
Author Organization [employer] Address 75 [facility] 7t [place] [address] Care Team Providers Care Lacquer Sizer Name Role Phone Colton Nelson MD Primary Care Provide r Reason for Visit * Reason Comments Med Refill Encounter Details Date Type Department Care Team ([facility] st Contact Info) Description 10/09/2023 Refill [facility] CHC MED & PEDS [address] [place], [place] [phone] Gudelia Flores FNP 505 [place], [place] [phone] Social History Tobacco Use Types Packs/Day Years [...] Description 03/16/2025 1:00 PM EDT Office Visit [facility] ADULT DENTAL [address] [place] [address] Pearl, Brielle [address] [place] [address] 03/22/2025 11:00 AM EDT Clinical Support [facility] CHC MED & PEDS 505 [place] [address] Maria Isabel Elam, RN 505 [place] [address] 04/07/2025 2:15 PM EDT Office Visit [facility] MEDICINE [address] [place] [address] Colton Nelson MD 230 [place] [address] documented as of this encounter Visit Diagnoses Not on filedocumented in this encounter Additional Health Concerns Assessment Noted Time PHQ-9 Depression Total Score: 0 12/17/19 23 10:18 AM EST documented as of this encounter Care Teams Lacquer Sizer Relationship Specialty Start Date End Date Colton Nelson MD 230 [place] [address] PCP - General Internal Medicine 05/04/20 documented as of this encounter
--- OUTSIDE RECORDS SUMMARY | 2025-03-09 13:02 | XMS_ITS | Encounter Summary ---
Author Organization [employer] Address 75 [facility] 7t [place] [address] Care Team Providers Care Quarantine Officer Name Role Phone Colton Nelson MD Primary Care Provide r Reason for Visit * Reason Comments Med Refill Encounter Details Date Type Department Care Team ([facility] st Contact Info) Description 10/15/2023 Refill [facility] MEDICINE 230 [place], [place] [phone] Colton Nelson MD 230 [place], [place] [phone] Social History Tobacco Use Types Packs/Day Years [...] Description 03/16/2025 1:00 PM EDT Office Visit [facility] ADULT DENTAL [address] [place] [address] Pearl, Brielle 230 [place] [address] 03/22/2025 11:00 AM EDT Clinical Support [facility] CHC MED & PEDS 505 [place] [address] Maria Isabel Elam, RN 505 [place] [address] 04/07/2025 2:15 PM EDT Office Visit [facility] MEDICINE 230 [place] [address] Colton Nelson MD 230 [place] [address] documented as of this encounter Visit Diagnoses Not on filedocumented in this encounter Additional Health Concerns Assessment Noted Time PHQ-9 Depression Total Score: 0 12/17/19 23 10:18 AM EST documented as of this encounter Care Teams Quarantine Officer Relationship Specialty Start Date End Date Colton Nelson MD [address] [place] [address] PCP - General Internal Medicine 05/04/20 documented as of this encounter
--- OUTSIDE RECORDS SUMMARY | 2025-03-09 13:03 | XMS_ITS | Encounter Summary ---
Author Organization [facility] Address 75 [facility] 7t [place] [address] Care Team Providers Care Chef Head Name Role Phone Colton Nelson MD Primary Care Provide r Reason for Visit * Reason Comments Med Refill Encounter Details Date Type Department Care Team (Late st Contact Info) Description 05/17/2024 Refill [facility] MEDICINE 230 [place], [place] [phone] Ashley Carrion, ANP 230 [place] [address] Lumbar disc herniation Social History Tobacco Use [...] Description 03/16/2025 1:00 PM EDT Office Visit [facility] ADULT DENTAL 230 [place] [address] Pearl Brielle 230 [place] [address] 03/22/2025 11:00 AM EDT Clinical Support [facility] CHC MED & PEDS 505 [place] [address] Maria Isabel Elam, RN 505 [place] [address] 04/07/2025 2:15 PM EDT Office Visit [facility] MEDICINE 230 [place] [address] Colton Nelson MD [address] [place] [address] documented as of this encounter Visit Diagnoses Diagnosis Lumbar disc herniation Displacement of lumbar intervertebral disc without myelopathy documented in this encounter Additional Health Concerns Assessment Noted Time PHQ-9 Depression Total Score: 0 05/11/20 24 1:30 PM EDT documented as of this encounter Care Teams Chef Head Relationship Specialty Start Date End Date Colton Nelson MD [address] [place] [address] PCP - General Internal Medicine 05/04/20 documented as of this encounter
--- OUTSIDE RECORDS SUMMARY | 2025-03-09 13:03 | XMS_ITS | Encounter Summary ---
Author Organization [employer] Address 75 [facility] 7t [place] [address] Care Team Providers Care Heading Matcher And Assembler Name Role Phone Colton Nelson MD Primary Care Provide r Reason for Visit * Reason Comments Med Refill Encounter Details Date Type Department Care Team (Late st Contact Info) Description 04/17/2023 Refill [facility] CHC MED & PEDS [address] [place] [address] Colton Nelson MD 230 [place] [address] Social History Tobacco Use Types Packs/Day Years [...] Description 03/16/2025 1:00 PM EDT Office Visit [facility] ADULT DENTAL 230 [place] [address] Pearl, Brielle 230 [place] [address] 03/22/2025 11:00 AM EDT Clinical Support [facility] CHC MED & PEDS 505 [place] [address] Maria Isabel Elam, RN 505 [place] [address] 04/07/2025 2:15 PM EDT Office Visit [facility] MEDICINE 230 [place] [address] Colton Nelson MD 230 [place] [address] documented as of this encounter Visit Diagnoses Not on filedocumented in this encounter Additional Health Concerns Assessment Noted Time PHQ-9 Depression Total Score: 0 12/17/19 23 10:18 AM EST documented as of this encounter Care Teams Heading Matcher And Assembler Relationship Specialty Start Date End Date Colton Nelson MD 230 [place] [address] PCP - General Internal Medicine 05/04/20 documented as of this encounter
--- OUTSIDE RECORDS SUMMARY | 2025-03-09 13:03 | XMS_ITS ---
Author Name Rashawn LYON, Mr. Maureen Antunez Address [address] [place] [address] Phone [phone] [facility] Care Team Providers Care Consumer Loan Specialist Name Role Phone Alan Morocho Unavailable [phone] Reason for Referral Not Available Allergies, adverse [...] Pain Assessment - NO pain present (1126F) [facility] [place] Pain Assessment - NO pain present (1126F) [facility] [place] Pain Assessment - NO pain present (1126F) [facility] [place] Pain Assessment - NO pain present (1126F) [facility] [place] Pain Assessment - NO pain present (1126F) [facility] [place] Pain Assessment - NO pain present (1126F) [facility] [place] Pain Assessment - NO pain present (1126F) [facility] [place] Type 2 diabetes w diabetic peripheral angiopath w/o gangreneType 2 diabetes mellitus with other specified complicationHyperlipidemia, unspecifiedEssential (primary) hypertensionChronic obstructive pulmonary disease, unspecifiedVitamin D deficiency, unspecifiedGastro-esophageal reflux disease without esophagitisMale erectile dysfunction, unspecifiedRestless legs syndrome Pain Assessment - NO pain present (1126F) [facility] [place] Pain Assessment - NO pain present (1126F) [facility] [place] Vital Signs Date of Collection Vitals 2022-09-23 13:16:02 Height - 162.56 cmWe ight - 78.02 kgBody Mass Index (BMI) - 29.52 kg/m2BP Diastolic - 88.0 mm[Hg]BP Systolic - 168.0 mm[Hg]Heart Rate - 62.0 /min Social History Social History Social History Observation Description Effec tive Time Current Smoking Status Former smoker 2025-02-22 8 Sex Male History of Procedures Procedures Service [...] (do not use for phone, instead use 89247-01) [id number] 2022-09-23 No Data Available No Data Availa [...] completed by a nacho and video using [email or web address] Tablet. Introductory visit with [employer] to establish care. Today, patient has chief complaint of: establishing care.Reviewed Allergies, Medications, Active Medical conditions, past medical/surgical history, Social history. 2022-09-23 Most recent hospital stay(s) or ER visit(s) and precipitating factors: Denies recent ER/hospital visit 2022-09-23 Advance care planbenita blandon discussion. Conversation today with: member; Advance Care PlanDo you have an Advance Care Plan? NoDo you have a Durable Power of Bread Pan Greaser for Healthcare, or Healthcare Proxy? NoIf so, Who?Code Status: UnknownOther Details of discussion (Who was present, patients description of wishes/goals):
--- OUTSIDE RECORDS SUMMARY | 2025-03-09 13:03 | XMS_ITS | Encounter Summary ---
Author Organization [employer] Address 75 [facility] 7t [place] [address] Care Team Providers Care Litigation Counsel Name Role Phone Colton Nelson MD Primary Care Provide r Reason for Visit * Reason Comments Med Refill Encounter Details Date Type Department Care Team (Late st Contact Info) Description 04/09/2023 Refill [facility] CHC MED & PEDS [address] [place] [address] Colton Nelson MD 230 [place] [address] Social History Tobacco Use Types Packs/Day Years [...] Description 03/16/2025 1:00 PM EDT Office Visit [facility] ADULT DENTAL 230 [place] [address] Pearl, Brielle [address] [place] [address] 03/22/2025 11:00 AM EDT Clinical Support [facility] CHC MED & PEDS 505 [place] [address] Maria Isabel Elam, RN 505 [place] [address] 04/07/2025 2:15 PM EDT Office Visit [facility] MEDICINE 230 [place] [address] Colton Nelson MD [address] [place] [address] documented as of this encounter Visit Diagnoses Not on filedocumented in this encounter Additional Health Concerns Assessment Noted Time PHQ-9 Depression Total Score: 0 12/17/19 23 10:18 AM EST documented as of this encounter Care Teams Litigation Counsel Relationship Specialty Start Date End Date Colton Nelson MD 230 [place] [address] PCP - General Internal Medicine 05/04/20 documented as of this encounter
--- OUTSIDE RECORDS SUMMARY | 2025-03-09 13:03 | XMS_ITS | Encounter Summary ---
Author Organization [employer] Address 75 [facility] 7t [place] [address] Care Team Providers Care Court Abstractor Name Role Phone Colton Nelson MD Primary Care Provide r Reason for Visit * Reason Onset Date Comments Call Back Request 05/13/2024 Encounter Details Date Type Department Care Team ([facility] st Contact Info) Description 05/13/2024 Telephone [facility] MEDICINE 230 [place], [place] [phone] Colton Nelson MD 230 [place], [place] [phone] Call Back Request Social History Tobacco Use [...] from pt requesting a call back with jacquard loom fixer, stated think he needs an appt but not sure about it. documented in this encounter Plan of Treatment Upcoming Encounters Date Type Department Care Team (Late st Contact Info) Description 03/16/2025 1:00 PM EDT Office Visit [facility] ADULT DENTAL [address] [place] [address] Xavier Kangaris [address] [place] [address] 03/22/2025 11:00 AM EDT Clinical Support [facility] CHC MED & PEDS 505 [place] [address] Maria Isabel Elam, ELEAZAR 505 [place] [address] 04/07/2025 2:15 PM EDT Office Visit [facility] MEDICINE 230 [place] [address] Colton Nelson MD [address] [place] [address] documented as of this encounter Visit Diagnoses Not on filedocumented in this encounter Additional Health Concerns Assessment Noted Time PHQ-9 Depression Total Score: 0 05/11/20 24 1:30 PM EDT documented as of this encounter Care Teams Court Abstractor Relationship Specialty Start Date End Date Colton Nelson MD 230 [place] [address] PCP - General Internal Medicine 05/04/20 documented as of this encounter
--- OUTSIDE RECORDS SUMMARY | 2025-03-09 13:03 | XMS_ITS | Encounter Summary ---
Author Organization [employer] Address 75 [facility] 7t [place] [address] Care Team Providers Care Deputy Brand Inspector Name Role Phone Colton Nelson MD Primary Care Provide r Reason for Visit * Reason Onset Date Comments Appointment Request 11/18/2024 Encounter Details Date Type Department Care Team ([facility] st Contact Info) Description 11/18/2024 Telephone [facility] MEDICINE 230 [place], [place] [phone] Colton Nelson MD 230 [place], [place] [phone] Appointment Request Social History Tobacco Use Types [...] the past 12 months, has t he [employer], gas, oil or water company threatened to [...] * Telephone Encounter - Sawyer Jamin - 11/18/2024 2:45 PM EST Tc from pt calling requesting call back to reschedule INSERT CUTTER visit. Please contact pt at [phone]. (Portuguese Speaker) documented in this encounter Plan of Treatment Upcoming Encounters Date Type Department Care Team ([facility] st Contact Info) Description 03/16/2025 1:00 PM EDT Office Visit [facility] ADULT DENTAL 230 [place] [address] Pearl Brielle 230 [place] [address] 03/22/2025 11:00 AM EDT Clinical Support [facility] CHC MED & PEDS 505 [place] [address] Maria Isabel Elam, RN 505 [place] [address] 04/07/2025 2:15 PM EDT Office Visit [facility] MEDICINE 230 [place] [address] Colton Nelson MD 230 [place] [address] documented as of this encounter Visit Diagnoses Not on filedocumented in this encounter Additional Health Concerns Assessment Noted Time PHQ-9 Depression Total Score: 0 05/11/20 24 1:30 PM EDT documented as of this encounter Care Teams Deputy Brand Inspector Relationship Specialty Start Date End Date Colton Nelson MD 230 [place] [address] PCP - General Internal Medicine 05/04/20 documented as of this encounter
--- OUTSIDE RECORDS SUMMARY | 2025-03-09 13:03 | XMS_ITS | Encounter Summary ---
Author Organization [employer] Address 75 [facility] 7t [place] [address] Care Team Providers Care Java Software Architect Name Role Phone Colton Nelson MD Primary Care Provide r Encounter Details Date Type Department Care Team (Late Contact Info) Description 04/03/2023 Abstract [facility] MEDICINE 230 [place] [address] Colton Nelson MD 230 [place] [address] Social History Tobacco Use Types Packs/Day Years [...] Department Care Team (Late Contact Info) Description 03/16/2025 1:00 PM EDT Office Visit [facility] ADULT DENTAL 230 [place] [address] Brielle Kang [address] [place] [address] 03/22/2025 11:00 AM EDT Clinical Support [facility] CHC MED & PEDS 505 [place] [address] Maria Isabel Elam, RN 505 [place] 04/07/2025 2:15 PM EDT Office Visit [facility] MEDICINE 230 [place] [address] Colton Nelson MD 230 [place] [address] documented as of this encounter Procedures Procedure [...] documented as of this encounter Care Teams Java Software Architect Relationship Specialty Start Date End Date Colton Nelson MD [address] [place] [address] PCP - General Internal Medicine 05/04/20 documented as of this encounter
--- OUTSIDE RECORDS SUMMARY | 2025-03-09 13:03 | XMS_ITS | Encounter Summary ---
Author Organization [employer] [facility] Address [address] [place] [address] 7[place] [address] Care Team Providers Care Dining Car Server Name Role Phone Colton Nelson MD Primary Care Provide r Encounter Details Date Type Department Care Team (Latest Contact Info) Description 12/13/2020 Abstract [facility] CONVERSIONS Dental, Provider, DDS Social History [...] 1:00 PM EDT Office Visit [facility] ADULT DENTAL 230 [place] [address] Brielle Kang [address] [place] [address] 03/22/2025 11:00 AM EDT Clinical Support [facility] CHC MED & PEDS 505 [place] [address] Maria Isabel Elam, ELEAZAR 505 [place] [address] 04/07/2025 2:15 PM EDT Office Visit [facility] MEDICINE 230 [place] [address] Colton Nelson MD 230 [place] [address] documented as of this encounter Visit Diagnoses Not on filedocumented in this encounter Care Teams Dining Car Server Relationship Specialty Start Date End Date Colton Nelson MD 230 [place] [address] PCP - General Internal Medicine 05/04/20 documented as of this encounter
--- OUTSIDE RECORDS SUMMARY | 2025-03-09 13:03 | XMS_ITS | Encounter Summary ---
Author Organization [employer] [facility] Address [address] [place] [address] 7[address] [place] [address] Care Team Providers Care Retort Operator Name Role Phone Colton Nelson MD Primary Care Provide r Encounter Details Date Type Department Care Team (Latest Contact Info) Description 08/09/2019 Abstract [facility] CONVERSIONS Dental, Provider, DDS Social [...] Description 03/16/2025 1:00 PM EDT Office Visit [facility] ADULT DENTAL 230 [place] [address] Brielle Kang [address] [place] [address] 03/22/2025 11:00 AM EDT Clinical Support [facility] CHC MED & PEDS 505 [place] [address] Maria Isabel Elam, ELEAZAR 505 [place] [address] 04/07/2025 2:15 PM EDT Office Visit [facility] MEDICINE 230 [place] [address] Colton Nelson MD 230 [place] [address] documented as of this encounter Visit Diagnoses Not on filedocumented in this encounter Care Teams Retort Operator Relationship Specialty Start Date End Date Colton Nelson MD [address] [place] [address] PCP - General Internal Medicine 05/04/20 documented as of this encounter
--- OUTSIDE RECORDS SUMMARY | 2025-03-09 13:03 | XMS_ITS | Encounter Summary ---
Author Organization [employer] Address [address] [place] [address] Care Team Providers Care Phone Manager Name Role Phone Colton Nelson MD Primary Care Provide r Reason for Visit * Reason Comments Med Refill Encounter Details Date Type Department Care Team (Late st Contact Info) Description 03/27/2023 Refill [facility] MEDICINE 230 [place] [address] Roxi Scott FNP [address] [place] [address] Dept of [place] [address] Social History Tobacco Use Types Packs/Day Years [...] Description 03/16/2025 1:00 PM EDT Office Visit [facility] ADULT DENTAL 230 [place], [place] [phone] Xavier Kangaris 230 [place], [place] [phone] 03/22/2025 11:00 AM EDT Clinical Support [facility] CHC MED & PEDS 505 [place] [address] Maria Isabel Elam, RN 505 [place] [address] 04/07/2025 2:15 PM EDT Office Visit [facility] MEDICINE 230 [place] [address] Colton Nelson MD [address] [place] [address] documented as of this encounter Visit Diagnoses Not on filedocumented in this encounter Additional Health Concerns Assessment Noted Time PHQ-9 Depression Total Score: 0 12/17/19 23 10:18 AM EST documented as of this encounter Care Teams Phone Manager Relationship Specialty Start Date End Date Colton Nelson MD [address] [place] [address] PCP - General Internal Medicine 05/04/20 documented as of this encounter
--- OUTSIDE RECORDS SUMMARY | 2025-03-09 13:03 | XMS_ITS | Encounter Summary ---
Author Organization [employer] Address 75 [facility] 7t [place] [address] Care Team Providers Care Flatlock Sewing Machine Operator Name Role Phone Colton Nelson MD Primary Care Provide r Reason for Visit * Reason Comments Med Refill Encounter Details Date Type Department Care Team ([facility] st Contact Info) Description 04/16/2024 Refill [facility] MEDICINE 230 [place], [place] [phone] Constance Wiggins MD 230 [place], [place] [phone] Chronic obstructive pulmonary disease, unspecified COPD type [...] 1:00 PM EDT Office Visit [facility] ADULT DENTAL 230 [place] [address] Pearl, Brielle 230 [place] [address] 03/22/2025 11:00 AM EDT Clinical Support [facility] CHC MED & PEDS 505 [place] [address] Maria Isabel Elam, ELEAZAR 505 [place] [address] 04/07/2025 2:15 PM EDT Office Visit [facility] MEDICINE 230 [place] [address] Colton Nelson MD 230 [place] [address] documented as of this encounter Visit Diagnoses Diagnosis Chronic obstructive pulmonary disease, unspecified COPD type (CMS/HCC) documented in this encounter Additional Health Concerns Assessment Noted Time PHQ-9 Depression Total Score: 0 12/17/19 23 10:18 AM EST documented as of this encounter Care Teams Flatlock Sewing Machine Operator Relationship Specialty Start Date End Date Colton Nelson MD 230 [place] [address] PCP - General Internal Medicine 05/04/20 documented as of this encounter
--- OUTSIDE RECORDS SUMMARY | 2025-03-09 13:03 | XMS_ITS | Clinical Summary ---
Author Organization [employer] Address [address] [place] [address] Care Team Providers Care Associate Spa Director Name Role Phone Colton Nelson MD Primary Care Provide r Allergies Active Allergy Reactions Criticality Noted Date Comments Hydrochlorothiazide Rash Low 11/09/2010 Lisinopril 06/20/2014 Olmesartan Unknown 11/09/2010 Medications * This document contains information received from the source organization and may not represent a complete record from that organization. naloxone (Narcan) 4 mg/0.1 mL nasal spray Administer 0.1 mL into affected nostril(s). [place] 0.1 milliliter by intranasal route in 1 [...] (81MG) by oral route every day Active acetaminophen (Tylenol) 500 MG tablet Take [...] TOPICALLY ONCE DAILY. ALTERNATE SHOULDER EVERY DAY. 024 Active melatonin 5 MG tablet Take 2 tablets by mouth if needed at bedtime (sleep). 024 Active rOPINIRole (Requip) 4 MG tablet TAKE 1 TABLET BY MOUTH AT BEDTIME 30 tablet 5 024 Active omeprazole (PriLOSEC) [address] capsule TAKE 1 CAPSULE BY MOUTH EVERY MORNING 90 capsule 3 024 Active cholecalciferol VITAMIN D (Vitamin D-3) 50 MCG (2000 UT) tablet TAKE 1 TABLET BY MOUTH EVERY MORNING 90 tablet 3 024 Active chlorthalidone (Hygroton) 25 MG tabletIndication [...] FOR WHEEZING 90 mL 3 025 Active glipiZIDE XL (Glucotrol XL) 2.5 [...] EVERY EVENING 90 tablet 1 025 Active amLODIPine (Norvasc) 10 MG tabletIndication s:Primary hypertension TAKE 1 TABLET BY MOUTH EVERY MORNING 90 tablet 1 025 Active montelukast (Singulair) 10 MG tabletIndication s:Pulmonary emphysema, unspecified emphysema type (CMS/HCC) TAKE 1 TABLET BY MOUTH EVERY MORNING 90 tablet 1 025 Active oxyCODONE-acetam inophen (Percocet) 5-325 MG tabletIndication s:Lumbar disc herniation Take 1 tablet by mouth every 6 (six) hours if needed for severe pain. 20 tablet 025 Active OneTouch Delica Lancets 33G misc TEST BLOOD SUGAR TWICE A DAY 100 each Active glucose blood (OneTouch Ultra) test strip Use to test blood sugar 2 times daily 100 each 025 2025 Active gabapentin (Neurontin) 600 MG tablet Take 1 tablet by mouth every 8 (eight) hours. 021 2024 Discontinued OneTouch Delica Lancets 33G misc 1 vial before breakfast, before lunch, and before evening meal. TEST BLOOD SUGAR TWICE A DAY 100 each 023 2024 Discontinued(R eorder (will not trigger notification to Pharmacy)) amLODIPine (Norvasc) 10 MG tabletIndication s:Primary hypertension TAKE 1 TABLET BY MOUTH EVERY MORNING 90 tablet 024 2024 Discontinued montelukast (Singulair) 10 MG tabletIndication s:Pulmonary emphysema, unspecified emphysema type (CMS/HCC) TAKE 1 TABLET BY MOUTH EVERY MORNING 90 tablet 024 2024 Discontinued oxyCODONE-acetam inophen (Percocet) 5-325 MG tabletIndication s:Lumbar disc herniation Take 1 tablet by mouth every 6 (six) hours if needed for severe pain. 20 tablet 025 2024 Discontinued(R eorder (will not trigger notification to Pharmacy)) Diclofenac Sodium 1 % gelIndications:M id back pain Apply 1 Application topically if needed in the morning, at noon, in the evening, and at bedtime (pain) for up to 7 days. 100 g 025 2024 Active Problems Problem Noted Date Diagnosed Date [...] dry mouth with nasal mask, seen by Egg Breaker 01/22/2024 who gave him a prescription for full face mask AIRFIT 30 Assessment & Plan (09/18/2023 8:22 AM EDT): ALLY well managed on CPAP C/o dry mouth with nasal mask, seen by Egg Breaker 09/08/2023 who gave him a prescription for [...] he has yet to hear from the Senior Research Project Manager office, I have my MA once again [...] AM EST): Pt last seen by his Egg Breaker Dr Denney 11/11/2024 He is on Advair HFA 2 puffs BID and instructed to use Albuterol PRN only Assessment & Plan (11/11/2024 11:25 AM EST): Pt last seen by his Egg Breaker Dr Denney 11/11/2024 He is on Advair HFA 2 puffs BID and instructed to use Albuterol PRN only Assessment & Plan (05/11/2024 1:44 PM EDT): Pt last seen by his Egg Breaker Dr Denney 01/22/2024 He is on Advair [...] EST): Pt here recently seen by his Egg Breaker Dr Denney 01/22/2024 He is on Advair HFA 2 puffs BID and instructed to use Albuterol PRN only Assessment & Plan (09/18/2023 8:20 AM EDT): Pt here with c/o asthma acting up recently , c/o more wheezing . Recently seen by his Egg Breaker Dr Denney 09/08/2023 who gave him a [...] on MS contin. Under the care of [facility]. Last note 08/2023 Pt requesting a handycap [...] has been seen in the past at [facility]. Pt requesting a handycap placard Assessment & [...] has been seen in the past at [facility]. Restless legs 08/14/2012 Assessment & Plan (12/16/2022 [...] organization. Date Type Department Care Team Description 02/23/2025 3:30 PM EDT Clinical Support [facility] [address] [place] [phone] Mercedez Mittal RN Forgetfulness 02/23/2025 Travel 02/21/2025 Refill [facility] [address] [place] [phone] Colton Nelsno MD 02/18/2025 Travel 02/18/2025 Telephone [facility] [address] [place] [phone] Colton Nelson MD Appointment Request; furnace unloader 02/14/2025 5:20 PM EDT Office Visit [facility] [address] [place] [address] Mark De La Fuente MD Mid back pain (Primary Dx) 02/14/2025 Refill [facility] [address] [place] [address] Maria Isabel Elam, ELEAZAR Lumbar disc herniation 02/14/2025 Telephone [facility] [address] [place] [address] Colton Nelson MD Med Refill 02/08/2025 Telephone [facility] [address] [place] [address] Colton Nelson MD Results 02/07/2025 Refill [facility] [address] [place], [place] [phone] Malik Walker MD Primary hypertension; Pulmonary emphysema, unspecified emphysema type (CMS/HCC) 02/04/2025 1:30 PM EDT Office Visit [facility] [address] [place] [address] Constance Wiggins MD Anxiety (Primary Dx); Forgetfulness; Essential hypertension 02/04/2025 Travel 02/03/2025 Telephone [facility] [address] [place] [address] Colton Nelson MD Nurse Triage 02/02/2025 Refill [facility] [address] [place] [address] Colton Nelson MD Type 2 diabetes mellitus without complication, without long-term current use of insulin (CMS/HCC) 01/17/2025 Refill [facility] [address] [place] [address] Cotlon Nelson MD Lumbar disc herniation 01/17/2025 Refill [facility] [address] [place] [address] Colton Nelson MD Chronic obstructive pulmonary disease, unspecified COPD type (CMS/HCC) 01/14/2025 Travel 01/14/2025 Telephone [facility] [address] [place] [address] Maria Isabel Elam, RN furnace unloader 01/14/2025 Telephone [facility] [address] [place] [address] Colton Nelson MD Med Refill 01/12/2025 Refill [facility] [address] [place] [address] Colton Nelson MD 12/21/2024 1:30 PM EST Office Visit [facility] [address] [place] [address] Colton Nelson MD Essential hypertension (Primary Dx); Pulmonary emphysema, unspecified emphysema type (CMS/HCC); Type 2 diabetes mellitus without complication, without long-term current use of insulin ([facility]); Mixed hyperlipidemia; Obesity (BMI 30-39.9); Dietary counseling; Exercise counseling; Routine physical examination; Preventative health care; Erectile dysfunction due to arterial insufficiency 12/21/2024 Travel 12/15/2024 Refill [facility] [address] [place] [address] Colton Nelson MD Lumbar disc herniation 12/10/2024 Telephone [facility] [address] [place] [address] Colton Nelson MD Chart Prep 12/09/2024 Patient Outreach [facility] [address] [place] [address] Colton Nelson MD Pre-visit Planning (SDOH Screening negative and Tobacco screening negative) from Last 3 Months Immunizations Name Administration [...] Sign Reading Time Taken Comments Blood Pressure 160/82 02/14/2025 4:44 PM EDT Pulse 72 02/14/2025 4:44 PM EDT Temperature 36.3 ??C (97.4 ??F) 02/14/2025 4:44 PM ED T Respiratory Rate 16 02/14/2025 4:44 PM EDT Oxygen Saturation 94% 12/21/2024 1:27 PM EST Inhaled Oxygen Concentration - - Weight 81.6 kg (180 lb) 02/14/2025 4:44 PM EDT Height 162.6 cm (5' 4 ) 02/14/2025 4:44 PM EDT Body Mass Index 30.9 02/14/2025 4:44 PM EDT Plan of Treatment Upcoming Encounters Date Type Department Care Team (Late st Contact Info) Description 03/16/2025 1:00 PM EDT Office Visit [facility] [address] [place] [address] Brielle Kang [address] [place] [address] 03/22/2025 11:00 AM EDT Clinical Support [facility] [address] [place] [address] Maria Isabel Elam, ELEAZAR [address] [place] [address] 04/07/2025 2:15 PM EDT Office Visit [facility] [address] [place] [address] Colton Nelson MD [address] [place] [address] Health Maintenance Due Date Last Done Comments Eye Exam 1955 RSV Patients and Patients Aged 60 years or older (1 - 1-dose 75+ series) 2022 Dental Oral Exam 03/11/2025 09/09/2024, 02/17/2023 Dental Prophylaxis 03/15/2025 09/13/2024, 1 12/28/2022, 02/17/2023 Diabetes: Hemoglobin A1C 05/07/2025 025, 11/11/2024, 08/12/2024, Additional history exists Depression Monitoring 08/07/2025 02/04/2025, 025 Diabetes: Foot Exam 08/12/2025 08/12/2024, 08/12/2024, 08/12/2024, Additional history exists Dental X-Ray: Bitewings 09/10/2025 09/09/2024, 02/17 Alcohol/Substance Use Screening 11/11/2025 11/11/2024 SDOH Screening 12/09/2025 12/09/2024 Lipid Panel 12/29/2025 12/29/2024, 01/23, 04/19/2022, Additional history exists Depression Screening 02/04/2026 02/04/2025, 02/05/20 Diabetes: Urine Protein Screening 02/04/2026 02/04/2025, 12/29/2024, 04/19/2022, Additional history exists Tobacco Screening 02/04/2026 02/04/2025 Dental X-Ray: Full [...] Procedure Name Priority Date/Time Associated Diagnosis Comments VITAMIN B12/FOLATE, SERUM PANEL Routine 02/04/2025 3:02 PM EDT Forgetfulness RPR (MONITOR) W/REFL TITER Routine 02/04/2025 3:02 PM EDT Forgetfulness TSH W/REFLEX TO FT4 Routine 02/04/2025 3 :02 PM EDT Forgetfulness HEMOGLOBIN A1C Routine 02/04/2025 3:02 PM EDT Forgetfulness COMPREHENSIVE METABOLIC PANEL Routine 02/04/2025 3:02 PM EDT Forgetfulness CBC WITH AUTO DIFFERENTIAL Routine 02/04/2025 3:02 PM EDT Forgetfulness COMPREHENSIVE METABOLIC PANEL Routine 02/04/2025 3:02 PM EDT Essential hypertension ALBUMIN, RANDOM URINE W/CREATININE Routine 02/04/2025 3:02 PM EDT Type 2 diabetes mellitus without complication, without long-term current use of insulin (CMS/HCC) LIPID PANEL, STANDARD Routine 12/29/2024 10:54 AM [...] Recently Relevant to Health Maintenance Results * Vitamin B12 (Cobalamin) and Folate Panel, Serum (02/04/2025 3:02 PM EDT) Vitamin B12 479 200 - 900 pg/mL [facility] Comment:NORMAL 200-900 PG/M L INDETERMINATE 160-199 PG/ML DEFICIENT < 160 PG/ML Folate 13.5 > or = 4.0 ng/mL [facility] Comment:Reference Values:> o r = 4.0 ng/mL< 4.0 ng/mL suggests folate deficiency Methotrexate, aminopterin and folinic acid(leucovorin) are chemotherapeutic agents whose molecularstructures are similar to folate; therefore, the Architectfolate assay cannot be used for patients using these drugs. Blood Venous blood specimen / Unknown 02/04/2025 3:02 PM EDT 02/04/2025 4:20 PM EDT us Constance Poole MD LAB BLOOD ORDERABLES Final Result [facility] [address] [place] [phone] * TSH with Reflex to Free T4 (02/04/2025 3:02 PM EDT) TSH reflex Free T4 0.61 0.32 - 4.0 uIU/mL [facility] Blood Venous blood specimen / Unknown 02/04/2025 3:02 PM EDT 02/04/2025 4:20 PM EDT us Constance Poole MD LAB BLOOD ORDERABLES Final Result [facility] [address] [place] [phone] * Albumin, Random Urine W/Creatinine (02/04/2025 3:02 PM EDT) Only the most recent of2 resultswithin the time period is included. Creatinine, Urine 157.11 mg/dL [facility] Microalbumin Urine 12.0 mg/L [facility] Microalbum Creatinine Ratio Ur 7.6 <30 ug/mg cr [facility] Comment:Albumin/Creatinine R atio Reference Ranges: Normal: < 30 ug/mg creatinine Microalbuminuria: 30 - 300 ug/mg creatinineClinical Albuminuria: > 300 ug/mg creatinine Urine (Urine, Random) 02/04/2025 3:02 PM EDT 02/04/2025 4:10 PM EDT us Colton De Leon MD LAB URINE ORDERABLES Final Result [facility] [address] [place] [phone] * (ABNORMAL) CBC auto differential (02/04/2025 3:02 PM EDT) White Blood Count 6.6 4.8 - 10.8 X10*3/uL [facility] Red Blood Count 4.22(L) 4.60 - 5.80 X10*6/uL [facility] Hemoglobin 12.8(L) 14.0 - 18.0 g/dl [facility] Hematocrit 39.0(L) 42.0 - 52.0 % [facility] Mean Corpuscular Volume 92.4 80.0 - 98.0 fL [facility] Mean Corpuscular Hemoglobin 30.3 27.0 - 33.0 pg [facility] Mean Corpuscular HGB Conc 32.8 31.0 - 36.0 g/dl [facility] Red Cell Distribution Width 13.2 11.0 - 16.0 % [facility] Platelet Count 230 160 - 400 X10*3/uL [facility] Mean Platelet Volume 10.2 9.4 - 12.4 fL [facility] Neutrophils Percent Auto 65.4 45 - 73 % [facility] Imm Gran Pct Auto 0.2 0.0 - 0.4 % [facility] Lymphocytes Percent Auto 24.2 20 - 40 % [facility] Monocytes Percent Auto 7.0 2 - 11 % [facility] Eosinophils Percent Auto 2.0 0 - 4 % [facility] Basophils Percent Auto 1.2 0 - 2 % [facility] NRBC Pct Auto 0.0 0.0 - 0.2 /100WBC [facility] Neutrophils Absolute Auto 4.3 2.0 - 8.3 x10*3/uL [facility] Imm Gran Abs Auto 0.01 0.00 - 0.03 X10*3/uL [facility] Lymphocytes Absolute Auto 1.6 1.2 - 4.9 X10*3/uL [facility] Monocytes Absolute Auto 0.5 0.1 - 1.2 X10*3/uL [facility] Eosinophils Absolute Auto 0.1 0.0 - 0.4 X10*3/uL [facility] Basophils Absolute Auto 0.1 0.0 - 0.2 X10*3/uL [facility] NRBC Abs Auto 0.000 0.0 - 0.012 X10*3/uL [facility] Blood Venous blood specimen / Unknown 02/04/2025 3:02 PM EDT 02/04/2025 4:20 PM EDT us Constance Poole MD LAB BLOOD ORDERABLES Final Result Performing Organization Address [facility] Co de Phone Number [facility] [address] [place] [address] [phone] * RPR (Monitor) with Reflex to??Titer (02/04/2025 3:02 PM EDT) RPR (Monitor) w/Refl Titer NON-REACTI VE NON-REACT [place] [facility] Comment:THIS TEST WAS PERFOR MED AT:[facility] [place] [phone] MEADOWS MD Rapid Plasma Reagin Ab Titer TNP [facility] Blood Venous blood specimen / Unknown 02/04/2025 3:02 PM EDT 02/04/2025 4:20 PM EDT us Constance Poole MD LAB BLOOD ORDERABLES Final Result Performing Organization Address [facility] Co de Phone Number [facility] [address] [place] [phone] * (ABNORMAL) Hemoglobin A1c (02/04/2025 3:02 PM EDT) Hemoglobin A1c 7.1(H) <6.0 % [facility] Comment:Hemoglobin A1C Refer ence Range Adults: 4.8 - 6.0 % Non diabetic: < 6.0 % Goal: < 7.0 %Additional Action Suggested: > 8.0 %Note: Hemoglobin A1c results are invalid for patients with abnormal amounts of HbF. Blood transfusions may impact the HbA1c concentration in the patient sample. Estimated Average Glucose 157 mg/dL [facility] Comment:eAG = Estimated ave rage glucose which is %A1C expressed asaverage glucose, using the formula of the K7H-FycmskoCefnnio Glucose study (ADAG), Diabetes Care, Vol.31,#8,Jun. 2007 Blood Venous blood specimen / Unknown 02/04/2025 3:02 PM EDT 02/04/2025 4:20 PM EDT us Constance Poole MD LAB BLOOD ORDERABLES Final Result [facility] [address] [place] [phone] * (ABNORMAL) Comprehensive Metabolic Panel (02/04/2025 3:02 PM EDT) Only the most recent of3 resultswithin the time period is included. Sodium 142 135 - 145 mmol/L [facility] Potassium 4.0 3.3 - 5.1 mmol/L [facility] Chloride 104 96 - 108 mmol/L [facility] Carbon Dioxide 29 22 - 29 mmol/L [facility] Anion Gap 13 12 - 20 [facility] Urea Nitrogen (BUN) 8(L) 9 - 16 mg/dL [facility] Creatinine, Serum 0.87 0.5 - 1.4 mg/dL [facility] Estimated Glomerular Filt Rate >60 [facility] Comment:Chronic Kidney Disea se: Estimated GFR < 60 mL/min/[id number] Kidney Disease: Estimated GFR < 15 mL/min/1.73m2 Glucose 106 60 - 115 mg/dL [facility] Calcium 9.1 8.4 - 10.2 mg/dL [facility] Bilirubin, Total 0.5 0.0 - 1.0 mg/dL [facility] Aspartate Amino Transferase 26 5 - 37 U/L [facility] Alanine Aminotransferase 21 0 - 40 U/L [facility] Total Protein 7.7 6.5 - 8.0 g/dL [facility] Albumin Level 4.0 3.5 - 5.0 g/dL [facility] Alkaline Phosphatase 68 39 - 117 U/L [facility] Blood Venous blood specimen / Unknown 02/04/2025 3:02 PM EDT 02/04/2025 4:20 PM EDT us Constance Poole MD LAB BLOOD ORDERABLES Final Result [facility] [address] [place] [phone] * Lipid Panel, Standard (12/29/2024 10:54 AM EST) Triglycerides 84 <150 mg/dL [facility] Comment:Desirable Triglyceri de: less than 150 mg/dLBorderline High Triglyceride 150-199 mg/dLHigh Triglyceride: 200-499 mg/dLVery High Triglyceride: greater than or equal to 5OO mg/dL Cholesterol 131 <200 mg/dL [facility] Comment:Desirable Cholestero l: less than 200 mg/dLBorderline High Cholesterol: 200-239 mg/dLHigh Cholesterol: greater than 239 mg/dL LDL Cholesterol Calculated 58 <100 mg/dL [facility] Comment:Desirable LDL: less than 100 mg/dLNear Optimal/Above Optimal LDL: 110- 129 mg/dLBorderline High LDL: 130-159 mg/dLHigh LDL: 160-189 mg/dLVery High LDL: greater than or equal to 190 mg/dL HDL Cholesterol 57 >40 mg/dL [facility] Comment:Desirable HDL: great er than 40 mg/dL Note: This HDL assay may give artificially low results in patients with liver disease. Blood Venous blood specimen / Unknown 12/29/2024 10:54 AM EST 12/29/2024 12:59 PM EST Colton De Leno MD LAB BLOOD ORDERABLES Final Result [facility] [address] [place] [phone] * (ABNORMAL) POCT Glucose (12/21/2024 1:40 PM EST) Glucose Blood, POC 214(A) 60 - 200 mg/dL QC Media Lot # [id number] Lot# Expiration Date [id number] Blood Capillary blood specimen / Unknown 12/21/2024 1:40 PM EST Colton De Leon MD POINT OF CARE TEST EN TER/EDIT ORDERABLES Final Result * HEPATITIS C AB W/REFL TO HCV RNA, QN, PCR (04/19/2022 8:52 AM EDT) HEPATITIS C ANTIBODY NON-REACT [place] NON-REACT [place] [facility] INDEX 0.02 <1.00 [facility] Comment: ?? HCV antibody was non-reactive. There is no laboratory ?? evidence of HCV infection. ?? In most cases, no further action is required. However, if recent HCV exposure is suspected, a test for HCV RNA (test code 16075) is suggested. ?? For additional information please refer to http://education.[employer]/faq/KVA65p5 (This link is being provided for informational/ educational purposes only.) ?? 04/19/2022 8:52 AM EDT Colton De Leon MD HISTORICAL/NON ORDERA BLE LABS Final Result [facility] [address] * Hm Colonoscopy (08/18/2020) Colonoscopy Normal Normal 08/18/2020 Narrative Jacquelin Chiu - 08/18/2020 9:26 AM EDT Recommended 10 year follow up Historical Provider HEALTH MAINTENANCE Final Result from Last 3 Months or Most Recently Relevant to Health Maintenance Insurance [facility] Advance Directives Documents on File Type Date Recorded Patient International Logistics Analyst Expl anation Advance Directives and Living Will 02/06/2024 8:49 AM Health Care Proxy Care Teams Associate Spa Director Relationship Specialty Start Date End Date Colton Nelson MD [address] [place] [address] LUDMILA Max [phone] PCP - General Internal Medicine 05/04/20
--- OUTSIDE RECORDS SUMMARY | 2025-03-09 13:03 | XMS_ITS | Encounter Summary ---
Author Organization [employer] [facility] Address [address] [place] [address] [address] [place] [address] Care Team Providers Care Supervisor Compounding And Finishing Name Role Phone Colton Nelson MD Primary Care Provide r Encounter Details Date Type Department Care Team (Latest Contact Info) Description 12/06/2021 Abstract [facility] CONVERSIONS Dental, Provider, DDS Social History [...] Description 03/16/2025 1:00 PM EDT Office Visit [facility] [address] [place] [address] Brielle Kang [address] [place] [address] 03/22/2025 11:00 AM EDT Clinical Support [facility] [address] [place] [address] Maria Isabel Elam, ELEAZAR [address] [place] [address] 04/07/2025 2:15 PM EDT Office Visit [facility] [address] [place] [address] Colton Nelson MD [address] [place] [address] documented as of this encounter Visit Diagnoses Not on filedocumented in this encounter Care Teams Supervisor Compounding And Finishing Relationship Specialty Start Date End Date Colton Nelson MD [address] [place] [address] PCP - General Internal Medicine 05/04/20 documented as of this encounter
--- OUTSIDE RECORDS SUMMARY | 2025-03-09 13:03 | XMS_ITS | Encounter Summary ---
Author Organization [employer] Address [address] [facility] 7t [place] [address] Care Team Providers Care Squeezer Operator Name Role Phone Colton Nelson MD Primary Care Provide r Reason for Visit * Reason Comments Med Refill Encounter Details Date Type Department Care Team ([facility] st Contact Info) Description 04/21/2024 Refill [facility] MEDICINE [address] [place], [place] [phone] Constance Wiggins MD [address] [place], [place] [phone] Chronic obstructive pulmonary disease, unspecified COPD type [...] Description 03/16/2025 1:00 PM EDT Office Visit [facility] ADULT DENTAL [address] [place] [address] Pearl, Brielle [address] [place] [address] 03/22/2025 11:00 AM EDT Clinical Support [facility] CHC MED & PEDS [address] [place] [address] Maria Isabel Elam, ELEAZAR 505 [place] [address] 04/07/2025 2:15 PM EDT Office Visit [facility] MEDICINE [address] [place] [address] Colton Nelson MD [address] [place] [address] documented as of this encounter Visit Diagnoses Diagnosis Chronic obstructive pulmonary disease, unspecified COPD type (CMS/HCC) documented in this encounter Additional Health Concerns Assessment Noted Time PHQ-9 Depression Total Score: 0 12/17/19 23 10:18 AM EST documented as of this encounter Care Teams Squeezer Operator Relationship Specialty Start Date End Date Colton Nelson MD 230 [place] [address] PCP - General Internal Medicine 05/04/20 documented as of this encounter
--- OUTSIDE RECORDS SUMMARY | 2025-03-09 13:03 | XMS_ITS | Encounter Summary ---
Author Organization [employer] Address 75 [facility] 7t [place] [address] Care Team Providers Care Tennis Racket Repairer Name Role Phone Colton Nelson MD Primary Care Provide r Reason for Visit * Reason Onset Date Comments Reschedule 02/18/2024 Encounter Details Date Type Department Care Team ([facility] st Contact Info) Description 02/18/2024 Telephone [facility] MEDICINE [address] [place], [place] [phone] Colton Nelson MD 230 [place], [place] [phone] Reschedule Social History Tobacco Use Types Packs/Day [...] Tc from pt requesting to reschedule 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 Please contact pt at [phone] documented in this encounter Plan of Treatment Upcoming Encounters Date Type Department Care Team (Late st Contact Info) Description 03/16/2025 1:00 PM EDT Office Visit [facility] ADULT DENTAL [address] [place] [address] Xavier Kangaris 230 [place] [address] 03/22/2025 11:00 AM EDT Clinical Support [facility] CHC MED & PEDS [address] [place] [address] Maria Isabel Elam, ELEAZAR 505 [place] [address] 04/07/2025 2:15 PM EDT Office Visit [facility] MEDICINE [address] [place] [address] Colton Nelson MD [address] [place] [address] documented as of this encounter Visit Diagnoses Not on filedocumented in this encounter Additional Health Concerns Assessment Noted Time PHQ-9 Depression Total Score: 0 12/17/19 10:18 AM EST documented as of this encounter Care Teams Tennis Racket Repairer Relationship Specialty Start Date End Date Colton Nelson MD 230 [place] [address] PCP - General Internal Medicine 05/04/20 documented as of this encounter
--- OUTSIDE RECORDS SUMMARY | 2025-03-09 13:03 | XMS_ITS | Encounter Summary ---
Author Organization [employer] Address 75 [facility] 7t [place] [address] Care Team Providers Care Detective Name Role Phone Colton Nelson MD Primary Care Provide r Reason for Visit * Reason Onset Date Comments Appointment Request 12/23/2023 Encounter Details Date Type Department Care Team ([facility] st Contact Info) Description 12/23/2023 Telephone [facility] MEDICINE [address] [place], [place] [phone] Colton Nelson MD 230 [place], [place] [phone] Appointment Request Social History Tobacco Use Types [...] with pcp 12/18/23. Please contact pt at [phone]. documented in this encounter Plan of Treatment Upcoming Encounters Date Type Department Care Team (Late st Contact Info) Description 03/16/2025 1:00 PM EDT Office Visit [facility] ADULT DENTAL [address] [place] [address] Pearl Brielle [address] [place] [address] 03/22/2025 11:00 AM EDT Clinical Support [facility] CHC MED & PEDS 505 [place] [address] Maria Isabel Elam, RN 505 [place] [address] 04/07/2025 2:15 PM EDT Office Visit [facility] MEDICINE [address] [place] [address] Colton Nelson MD [address] [place] [address] documented as of this encounter Visit Diagnoses Not on filedocumented in this encounter Additional Health Concerns Assessment Noted Time PHQ-9 Depression Total Score: 0 12/17/19 10:18 AM EST documented as of this encounter Care Teams Detective Relationship Specialty Start Date End Date Colton Nelson MD [address] [place] [address] PCP - General Internal Medicine 05/04/20 documented as of this encounter
--- OUTSIDE RECORDS SUMMARY | 2025-03-09 13:03 | XMS_ITS | Encounter Summary ---
Author Organization [employer] Address 75 [facility] 7t [place] [address] Care Team Providers Care Manager Gift Name Role Phone Colton Nelson MD Primary Care Provide r Reason for Visit * Reason Comments Med Refill Encounter Details Date Type Department Care Team ([facility] st Contact Info) Description 06/18/2024 Refill [facility] MEDICINE [address] [place], [place] [phone] Colton Nelson MD 230 [place], [place] [phone] Chronic obstructive pulmonary disease, unspecified COPD type [...] Description 03/16/2025 1:00 PM EDT Office Visit [facility] ADULT DENTAL [address] [place] [address] Pearl, Brielle [address] [place] [address] 03/22/2025 11:00 AM EDT Clinical Support [facility] CHC MED & PEDS 505 [place] [address] Maria Isabel Elam, RN 505 [place] [address] 04/07/2025 2:15 PM EDT Office Visit [facility] MEDICINE [address] [place] [address] Colton Nelson MD [address] [place] [address] documented as of this encounter Visit Diagnoses Diagnosis Chronic obstructive pulmonary disease, unspecified COPD type (CMS/HCC) documented in this encounter Additional Health Concerns Assessment Noted Time PHQ-9 Depression Total Score: 0 05/11/20 24 1:30 PM EDT documented as of this encounter Care Teams Manager Gift Relationship Specialty Start Date End Date Colton Nelson MD [address] [place] [address] PCP - General Internal Medicine 05/04/20 documented as of this encounter
== END 2025-03-09 11:22 | disposition home or self-care (01) ==
LOC: HO.HPS 10:55
PROVIDERS: PCP Internal Medicine; Visit Provider Internal Medicine
DX: J44.9 Chronic obstructive pulmonary disease, unspecified (principal); G47.33 Obstructive sleep apnea (adult) (pediatric); Z99.89 Dependence on other enabling machines and devices; J30.9 Allergic rhinitis, unspecified; E66.9 Obesity, unspecified
CPT/HCPCS: 99213

== ENCOUNTER → 2025-03-09 10:55 | Outpatient (BNVA) | payer OTHER, SELFPAY | PROVIDERS: PCP Internal Medicine; Visit Provider Internal Medicine | DX: J44.9 Chronic obstructive pulmonary disease, unspecified (principal); J30.9 Allergic rhinitis, unspecified; G47.33 Obstructive sleep apnea (adult) (pediatric); E66.9 Obesity, unspecified; Z99.89 Dependence on other enabling machines and devices; Z68.30 Body mass index [BMI] 30.0-30.9, adult | CPT/HCPCS: 99212 ==

== ENCOUNTER 2025-03-21 12:12 | Outpatient (REF) | payer OTHER, SELFPAY ==
--- OUTSIDE RECORDS SUMMARY | 2025-03-21 14:37 | XMS_ITS | Encounter Summary ---
Author Organization [employer] Address 75 [facility] 7t [place] [address] Care Team Providers Care Process Coordinator Name Role Phone Colton Nelson MD Primary Care Provide r Reason for Visit * Reason Comments Med Refill Encounter Details Date Type Department Care Team ([facility] st Contact Info) Description 04/16/2024 Refill [facility] MEDICINE 230 [place], [place] [phone] Constance Wiggins MD 230 [place], [place] [phone] Chronic obstructive pulmonary disease, unspecified COPD type [...] Care Team (Late st Contact Info) Description 03/22/2025 11:00 AM EDT Clinical Support [facility] CHC MED & PEDS 505 [place] [address] Maria Isabel Elam, ELEAZAR 505 [place] [address] 04/07/2025 2:15 PM EDT Office Visit [facility] MEDICINE 230 [place] [address] Colton Nelson MD [address] [place] [address] 04/13/2025 2:00 PM EDT Office Visit [facility] ADULT DENTAL 230 [place] [address] Bennett Yung, KAELA 230 [place] [address] documented as of this encounter Visit Diagnoses Diagnosis Chronic obstructive pulmonary disease, unspecified COPD type (CMS/HCC) documented in this encounter Additional Health Concerns Assessment Noted Time PHQ-9 Depression Total Score: 0 12/17/19 23 10:18 AM EST documented as of this encounter Care Teams Process Coordinator Relationship Specialty Start Date End Date Colton Nelson MD [address] [place] [address] PCP - General Internal Medicine 05/04/20 documented as of this encounter
--- OUTSIDE RECORDS SUMMARY | 2025-03-21 14:37 | XMS_ITS | Encounter Summary ---
Author Organization [employer] Address 75 [facility] 7t [place] [address] Care Team Providers Care Vending Supervisor Name Role Phone Colton Nelson MD Primary Care Provide r Reason for Visit * Reason Comments Med Refill Encounter Details Date Type Department Care Team ([facility] st Contact Info) Description 03/18/2025 Refill [facility] CHC MED & PEDS [address] [place], [place] [phone] Colton Nelson MD 230 [place], [place] [phone] Lumbar disc herniation Social History Tobacco Use [...] the past 12 months, has t he [employer] gas, oil or water company threatened to [...] Description 03/22/2025 11:00 AM EDT Clinical Support [facility] CHC MED & PEDS [address] [place] [address] Maria Isabel Elam, ELEAZAR 505 [place] [address] 04/07/2025 2:15 PM EDT Office Visit [facility] MEDICINE [address] [place] [address] Colton Nelson MD 230 [place] [address] 04/13/2025 2:00 PM EDT Office Visit [facility] ADULT DENTAL [address] [place] [address] Bennett Yung, KAELA 230 [place] [address] documented as of this encounter Visit Diagnoses Diagnosis Lumbar disc herniation Displacement of lumbar intervertebral disc without myelopathy documented in this encounter Additional Health Concerns Assessment Noted Time PHQ-9 Depression Total Score: 9 02/05/20 25 2:00 PM EDT documented as of this encounter Care Teams Vending Supervisor Relationship Specialty Start Date End Date Colton Nelson MD 230 [place] [address] PCP - General Internal Medicine 05/04/20 documented as of this encounter
--- OUTSIDE RECORDS SUMMARY | 2025-03-21 14:37 | XMS_ITS | Encounter Summary ---
Author Organization [employer] Address 75 [facility] 7t [place] [address] Care Team Providers Care Livestock Judging Coach Name Role Phone Colton Nelson MD Primary Care Provide r Reason for Visit * Reason Comments Med Refill Encounter Details Date Type Department Care Team ([facility] st Contact Info) Description 04/21/2024 Refill [facility] MEDICINE 230 [place], [place] [phone] Constance Wiggins MD 230 [place], [place] [phone] Chronic obstructive pulmonary disease, unspecified COPD type [...] Description 03/22/2025 11:00 AM EDT Clinical Support [facility] CHC MED & PEDS 505 [place] [address] Maria Isabel Elam, ELEAZAR 505 [place] [address] 04/07/2025 2:15 PM EDT Office Visit [facility] MEDICINE 230 [place] [address] Colton Nelson MD [address] [place] [address] 04/13/2025 2:00 PM EDT Office Visit [facility] ADULT DENTAL [address] [place] [address] Bennett Yung, KAELA [address] [place] [address] documented as of this encounter Visit Diagnoses Diagnosis Chronic obstructive pulmonary disease, unspecified COPD type (CMS/HCC) documented in this encounter Additional Health Concerns Assessment Noted Time PHQ-9 Depression Total Score: 0 12/17/19 23 10:18 AM EST documented as of this encounter Care Teams Livestock Judging Coach Relationship Specialty Start Date End Date Colton Nelson MD [address] [place] [address] PCP - General Internal Medicine 05/04/20 documented as of this encounter
--- OUTSIDE RECORDS SUMMARY | 2025-03-21 14:37 | XMS_ITS | Encounter Summary ---
Author Organization [employer] Address 75 [facility] 7t [place] [address] Care Team Providers Care Hospital Medical Assistant Name Role Phone Colton Nelson MD Primary Care Provide r Reason for Visit * Reason Comments Routine Cleaning Dental Exam Perio chart x-rays Encounter Details Date Type Department Care Team (Late st Contact Info) Description 03/18/2025 8:00 AM EDT Office Visit [facility] ADULT DENTAL [address] [place], [place] [phone] Brielle Kang [address] [place] [address] Erosion of teeth, limited to enamel (Primary Dx); Fractured dental restorationism with loss of material; Dental calculus; Gingival recession, generalized; Periodontal disease; Staining (discoloration) of teeth Social History Tobacco Use Types Packs/Day Years [...] Sign Reading Time Taken Comments Blood Pressure 138/72 03/18/2025 7:59 AM EDT Pulse - - Temperature - - Respiratory Rate - - Oxygen Saturation - - Inhaled Oxygen Concentration - - Weight - - Height - - Body Mass Index - - documented in this encounter Progress Notes * Brielle Kang - 03/18/2025 8:00 AM EDT Patient ID: Jose Ramon Feliciano is a 79 y.o. male. Time Out: Timeout Date: 03/18/25, Timeout Time: 0804 (Prophy, fluoride), x-rays, exam. And denture adjustment. Location: [facility] Tooth: Maxilla and Mandible Procedure: Exam, X-rays, Prophylaxis, and Perio chart Verified the above with patient, assistant principal, and provider. Confirmed via patient's chart, intraorally and by radiographs. Automobile Insurance Claim Examiner: not applicable Medical Hx: Vitals: Blood pressure 138/72. Medications, Med Hx reviewed with patient and updated in chart. Treatment Provided Dental procedures in this visit D1110 - PROPHYLAXIS - ADULT (Completed) Service provider: Brielle Kang Billsu provider: Jean Younger DDS D1206 - TOPICAL APPLICATION OF FLUORIDE VARNISH (Completed) Service provider: Brielle Kang Billsu provider: Jean Younger DDS D1330 - ORAL HYGIENE INSTRUCTIONS (Completed) Service provider: Brielle Kang Billsu provider: Jean Younger DDS D9450 - CASE PRESENTATION, DETAILED AND EXTENSIVE TREATMENT PLANNING (Completed) Service provider: Brielle Kang Billsu provider: Jean Younger DDS D0274 - BITEWINGS - 4 RADIOGRAPHIC IMAGES (Completed) Service provider: Brielle López provider: Jean Younger DDS D0220 - INTRAORAL - PERIAPICAL FIRST RADIOGRAPHIC IMAGE 1,2,3 (Completed) Service provider: Brielle López provider: Jean Younger DDS Instruments Used: Ultrasonic Scalers and Prophy angle Fluoride: 5% NaF varnish applied and POI given Oral Cancer Screening: No lesions Head/Neck Exam: No Lesions Calculus: Light and Moderate Plaque: Light and Moderate Stain: discolored Bleeding: Light Gingiva: Recession- generalized and pink [place]: Fair Perio Chart: Completed: periodontally involves, maintaining for now. Oral hygiene instructions provided to patient including brushing technique and flossing. Recommendations: Burnside two times daily, modified roth technique, Floss daily, Electric toothbrush, Soft bristle toothbrush, Burnside Tongue, Anti-sensitivity toothpaste Recall Frequency: 6 mo prophy, fluoride NV: Dr. Yung to evaluate #21, Aren Infante to smooth #13 Lingual occlusal. Hygienist: Brielle Kang RDH * Jean Younger DDS - 03/18/2025 8:00 AM EDT Dental procedures in this visit D1110 - PROPHYLAXIS - ADULT (Completed) Service provider: Brielle López provider: Jean Younger DDS D1206 - TOPICAL APPLICATION OF FLUORIDE VARNISH (Completed) Service provider: Brielle López provider: Jean Younger DDS D1330 - ORAL HYGIENE INSTRUCTIONS (Completed) Service provider: Brielle Kang Billing provider: Jean Younger DDS D9450 - CASE PRESENTATION, DETAILED AND EXTENSIVE TREATMENT PLANNING (Completed) Service provider: Brielle Kang Billsu provider: Jean Younger DDS D0274 - BITEWINGS - 4 RADIOGRAPHIC IMAGES (Completed) Service provider: Brielle Kang Billsu provider: Jean Younger DDS D0220 - INTRAORAL - PERIAPICAL FIRST RADIOGRAPHIC IMAGE 1,2,3 (Completed) Service provider: Brielle Kang Billsu provider: Jean Younger DDS D0120 - PERIODIC ORAL EVALUATION - ESTABLISHED PATIENT (Completed) Service provider: Jean Younger DDS Billing provider: Jean Younger DDS D5422 - ADJUST PARTIAL DENTURE - MANDIBULAR (Completed) Service provider: Jean Younger DDS Billing provider: Jean Younger DDS Patient ID: Jose Ramon Feliciano is a 79 y.o. male. Time Out: Timeout Date: 03/18/25, Timeout Time: 0804 (Prophy, fluoride) Location: [facility] Tooth: Maxilla and Mandible Procedure: Exam, X-rays, Prophylaxis, and fluoride and alondra. Metal Partial adjusted. Verified the above with patient, assistant principal, and provider. Confirmed via patient's chart, intraorally and by radiographs. Automobile Insurance Claim Examiner: not applicable Chief Complaint Patient presents with Routine Cleaning Dental Exam Perio chart x-rays Medical Hx: Vitals: Blood pressure 138/72. Past Medical History: Diagnosis Date Arthritis Asthma Diabetes mellitus ([facility]/HCC) GERD (gastroesophageal reflux disease) High cholesterol Hypertension Periodontal disease Medications: Outpatient Encounter Medications as of 03/18/2025 Medication Sig Dispense Refill acetaminophen (Tylenol) 500 [...] BY MOUTH EVERY MORNING 90 tablet 1 aspirin 81 MG EC tablet take 1 [...] day in each nostril 16 g 3 glipiZIDE XL (Glucotrol XL) 2.5 MG 24 hr tablet TAKE 1 TABLET BY MOUTH EVERY MORNING BEFORE BREAKFAST FOR BLOOD SUGAR > 150 90 tablet 1 glucose blood (OneTouch Ultra) test strip TEST BLOOD SUGAR TWICE A DAY 100 each 11 glucose blood ([employer]Touch Ultra) test strip Use to test blood sugar 2 times daily 100 each 11 hydrocortisone 1 % cream [...] BY MOUTH EVERY MORNING 90 tablet 1 naloxone (Narcan) 4 mg/0.1 mL nasal spray Administer 0.1 mL into affected nostril(s). [place] 0.1 milliliter by intranasal route in 1 nostril may repeat dose every 2-3 minutes as needed alternating nostrils with each dose omeprazole (PriLOSEC) [address] capsule TAKE 1 CAPSULE BY MOUTH EVERY MORNING 90 capsule 3 OneTouch [facility]ica [facility] TEST BLOOD SUGAR TWICE A DAY 100 [...] EVERY 4 TO 6 HOURS NEEDED FORWHEEZING No facility-administered encounter medications on file as of 03/18/2025. Objective HPI Asymptomatic Head and Neck Exam: Lymph Nodes, Lips, Palate, Buccal Mucosa, Floor of Mouth, Tongue, Tonsils, Alveolar Ridges, Oropharynx, Salivary Ducts, and Vestibules normal appearance . Details: Skin WNL OCS: negative Dental Exam As charted Plaque Calculus Attrition Recession Multiple times # 21 occlusal distal amalgam Reference tooth chart for additional findings. Oral Cancer Risk: Low Risk Oral Hygiene Instructions: Burnside two times daily, modified roth technique, Floss daily, Electric toothbrush, Soft bristle toothbrush, Burnside Tongue, Fluoride . Caries Risk Assessment: Low- no risk factor Assessment/Plan SHADI X Ray Prophy Adjust alondra. Partial Second opinion # 21 amalgam failure of retention / crown ? to Dr. Yung Patient tolerated procedure well, all questions answered and expressed understanding. Dismissed in good condition. NV: Internal consult / Dr Yung Track Repair Person: Stella Winter Dentist: Jean Younger DDS documented in this encounter Plan of Treatment Upcoming Encounters Date Type Department Care Team (Late st Contact Info) Description 03/22/2025 11:00 AM EDT Clinical Support [facility] MED & PEDS [address] [place] [address] Maria Isabel Elam, RN 505 [place] [address] 04/07/2025 2:15 PM EDT Office Visit [facility] MEDICINE [address] [place] [address] Colton Nelson MD [address] [place] [address] 04/13/2025 2:00 PM EDT Office Visit [facility] ADULT DENTAL [address] [place] [address] Bennett Yung, KAELA [address] [place] [address] Scheduled Orders Name Type Priority Associated Diagnoses Orde r Schedule 21 21 LIMITED ORAL EVALUATION - PROBLEM FOCUSED Dental Routine 1 Occurrences [facility] 03/18/2025 UL UL OCCLUSAL ADJUSTMENT - LIMITED Dental Routine 1 Occurrences [facility] 03/18/2025 TOPICAL APPLICATION OF FLUORIDE VARNISH Dental Routine 1 Occurrences s tarting 03/18/2025 ORAL HYGIENE INSTRUCTIONS Dental Routine 1 Occurrences starting 03/18/2025 CASE PRESENTATION, DETAILED AND EXTENSIVE TREATMENT PLANNING Dental Routine 1 Occurrences starting 03/18/2025 documented as of this encounter Procedures Procedure Name Priority Date/Time Associated Diagnosis Comments TOPICAL APPLICATION OF FLUORIDE VARNISH Routine 03/18/2025 8:00 AM EDT Erosion of teeth, limited to enamel Fractured dental restorationism with loss of material Dental calculus Gingival recession, generalized Periodontal disease Staining (discoloration) of teeth PROPHYLAXIS - ADULT Routine 03/18/2025 8 :00 AM EDT Dental calculus Gingival recession, generalized Periodontal disease Staining (discoloration) of teeth PERIODIC ORAL EVALUATION - ESTABLISHED PATIENT Routine 03/18/2025 8:00 AM EDT ORAL HYGIENE INSTRUCTIONS Routine 03/18/2025 8:00 AM EDT Erosion of teeth, limited to enamel Fractured dental restorationism with loss of material Dental calculus Gingival recession, generalized Periodontal disease Staining (discoloration) of teeth 1,2,3 INTRAORAL - PERIAPICAL FIRST RADIOGRAPHIC IMAGE Routine 03/18/2025 8:00 AM EDT Erosion of teeth, limited to enamel Fractured dental restorationism with loss of material Dental calculus Gingival recession, generalized Periodontal disease Staining (discoloration) of teeth CASE PRESENTATION, DETAILED AND EXTENSIVE TREATMENT PLANNING Routine 03/18/2025 8:00 AM EDT Erosion of teeth, limited to enamel Fractured dental restorationism with loss of material Dental calculus Gingival recession, generalized Periodontal disease Staining (discoloration) of teeth BITEWINGS - 4 RADIOGRAPHIC IMAGES Routine 03/18/2025 8:00 AM EDT Erosion of teeth, limited to enamel Fractured dental restorationism with loss of material Dental calculus Gingival recession, generalized Periodontal disease Staining (discoloration) of teeth ADJUST PARTIAL DENTURE - MANDIBULAR Routine 03/18/2025 8:00 AM EDT 21 B(V) AMALGAM FILLING Routine 03/18/20 12:00 AM EDT documented in this encounter Visit Diagnoses Diagnosis Erosion of teeth, limited to enamel- Primary Fractured dental restorationism with loss of material Fractured dental restorative material with loss of material Dental calculus Accretions on teeth Gingival recession, generalized Periodontal disease Unspecified gingival and periodontal disease Staining (discoloration) of teeth Intrinsic posteruptive color changes of teeth documented in this encounter Additional Health Concerns Assessment Noted Time PHQ-9 Depression Total Score: 9 02/05/20 25 2:00 PM EDT documented as of this encounter Care Teams Hospital Medical Assistant Relationship Specialty Start Date End Date Colton Nelson MD [address] [place] [id number] PCP - General Internal Medicine 05/04/20 documented as of this encounter
--- OUTSIDE RECORDS SUMMARY | 2025-03-21 14:37 | XMS_ITS | Clinical Summary ---
Author Organization [employer] Address [address] [place] [address] Care Team Providers Care Hardwood Floor Sander Name Role Phone Colton Nelson MD Primary Care Provide r Allergies Active Allergy Reactions Criticality Noted Date Comments Hydrochlorothiazide Rash Low 11/09/2010 Lisinopril 06/20/2014 Olmesartan Unknown 11/09/2010 Medications * This document contains information received from the source organization and may not represent a complete record from that organization. naloxone (Narcan) 4 mg/0.1 mL nasal spray Administer 0.1 mL into affected nostril(s). Sizerock 0.1 milliliter by intranasal route in 1 [...] TABLET BY MOUTH EVERY EVENING 90 tablet 025 Active amLODIPine (Norvasc) 10 MG tabletIndication s:Primary hypertension TAKE 1 TABLET BY MOUTH EVERY MORNING 90 tablet 1 025 Active montelukast (Singulair) 10 MG tabletIndication s:Pulmonary emphysema, unspecified emphysema type (CMS/HCC) TAKE 1 TABLET BY MOUTH EVERY MORNING 90 tablet 1 025 Active OneTouch Delica Lancets 33G misc TEST BLOOD SUGAR TWICE A DAY 100 each 025 Active glucose blood (OneTouch Ultra) test strip Use to test blood sugar 2 times daily 100 each 025 2025 Active oxyCODONE-acetam inophen (Percocet) 5-325 MG tabletIndication s:Lumbar disc herniation TAKE 1 TABLET BY MOUTH EVERY 6 HOURS NEEDED FOR SEVERE PAIN 20 tablet 025 Active OneTouch Delica Lancets 33G misc 1 vial before breakfast, before lunch, and before evening meal. TEST BLOOD SUGAR TWICE A DAY 100 each 11 023 2024 Discontinued(R eorder (will not trigger notification to Pharmacy)) oxyCODONE-acetam inophen (Percocet) 5-325 MG tabletIndication s:Lumbar disc herniation Take 1 tablet by mouth every 6 (six) hours if needed for severe pain. 20 tablet 025 2024 Discontinued Diclofenac Sodium 1 % gelIndications:M id back pain Apply 1 Application topically if needed in the morning, at noon, in the evening, and at bedtime (pain) for up to 7 days. 100 g 025 2024 Active Problems Problem Noted Date Diagnosed Date Staining (discoloration) of teeth 03/18/2025 Anxiety 02/04/2025 Assessment & Plan (02/04/2025 4:15 [...] dry mouth with nasal mask, seen by Networking Technology Instructor 01/22/2024 who gave him a prescription for full face mask AIRFIT 30 Assessment & Plan (09/18/2023 8:22 AM EDT): ALLY well managed on CPAP C/o dry mouth with nasal mask, seen by Networking Technology Instructor 09/08/2023 who gave him a prescription for [...] he has yet to hear from the [facility] office, I have my MA once again [...] 02/03/2024 On Testosterone Gel prescribed by Dr. aLndis Assessment & Plan (12/16/2022 9:38 PM EST): Under the care of Urology Cervical spondylosis 05/13/2018 Assessment & Plan (12/16/2022 9:35 PM EST): Pt s/p right C6-C7 decompressive foraminotomy on Mar [address] Fay Daniels May continue Percocet Vitamin D deficiency 04/19/2015 Atherosclerosis of coronary artery 08/14/2012 Chronic obstructive lung disease 08/14/2012 Assessment & Plan (12/21/2024 10:06 AM EST): Pt last seen by his Networking Technology Instructor Dr Denney 11/11/2024 He is on Advair HFA 2 puffs BID and instructed to use Albuterol PRN only Assessment & Plan (11/11/2024 11:25 AM EST): Pt last seen by his Networking Technology Instructor Dr Denney 11/11/2024 He is on Advair HFA 2 puffs BID and instructed to use Albuterol PRN only Assessment & Plan (05/11/2024 1:44 PM EDT): Pt last seen by his Networking Technology Instructor Dr Denney 01/22/2024 He is on Advair [...] EST): Pt here recently seen by his Networking Technology Instructor Dr Denney 01/22/2024 He is on Advair HFA 2 puffs BID and instructed to use Albuterol PRN only Assessment & Plan (09/18/2023 8:20 AM EDT): Pt here with c/o asthma acting up recently , c/o more wheezing . Recently seen by his Networking Technology Instructor Dr Denney 09/08/2023 who gave him a [...] on MS contin. Under the care of [facility]. Last note 08/2023 Pt requesting a [...] has been seen in the past at [facility]. Pt requesting a handycap placard Assessment [...] has been seen in the past at [facility]. Restless legs 08/14/2012 Assessment & Plan [...] organization. Date Type Department Care Team Description 03/18/2025 8:00 AM EDT Office Visit [facility] ADULT DENTAL [address] [place] [address] Brielle Kang Erosion of teeth, limited to enamel (Primary Dx); Fractured dental mormonism with loss of material; Dental calculus; Gingival recession, generalized; Periodontal disease; Staining (discoloration) of teeth 03/18/2025 Telephone [facility] [address] [place] [address] Maria Isabel Elam, ELEAZAR 03/18/[address] [facility] MED & PEDS [address] [place] [address] Colton Nelson MD Lumbar disc herniation 02/23/2025 3:30 PM EDT Clinical Support [address] [address] Mercedez Mittal RN Forgetfulness 02/23/2025 Travel 02/21/[address] [address] Colton Nelson MD 02/18/2025 Travel 02/18/[address] [address] Colton Nelson MD Appointment Request; sem manager 02/14/2025 5:20 PM EDT Office Visit [facility] [address] [place] [phone] Mark De La Fuente MD Mid back pain (Primary Dx) 02/14/2025 Refill [facility] MED & PEDS [address] [place] [address] Maria Isabel Elam, ELEAZAR Lumbar disc herniation 02/14/[address] [facility] [address] [place] [address] Colton Nelson MD Med Refill 02/08/[address] [phone] Colton Nelson MD Results 02/07/2025 Refill [facility] MEDICINE [address] [place] [address] Malik Walker MD Primary hypertension; Pulmonary emphysema, unspecified emphysema type ([facility]/HCC) 02/04/2025 1:30 PM EDT Office Visit [facility] MEDICINE [address] [place] [address] oCnstance Wiggins MD Anxiety (Primary Dx); Forgetfulness; Essential hypertension 02/04/2025 Travel 02/03/2025 Telephone [facility] MED[facility]INE [address] [place] [address] Colton Nelson MD Nurse Triage 02/02/2025 Refill [facility] MEDICINE [address] [place] [address] Colton Nelson MD Type 2 diabetes mellitus without complication, without long-term current use of insulin ([facility]) 01/17/2025 Refill [facility] MEDICINE [address] [place] [address] Colton Nelson MD Lumbar disc herniation 01/17/[address] [facility] [address] [place] [address] Colton Nelson MD Chronic obstructive pulmonary disease, unspecified COPD type ([facility]) 01/14/2025 Travel 01/14/[address] [facility] [address] [place] [address] Maria Isabel Elam, RN sem manager 01/14/2025 Telephone [facility] MEDICINE [address] [place] [address] Colton Nelson MD Med Refill 01/12/2025 Refill [facility] MEDICINE [address] [place] [address] Colton Nelson MD 12/21/2024 1:30 PM EST Office Visit [facility] MEDICINE [address] [place] [address] Colton Nelson MD Essential hypertension (Primary Dx); Pulmonary emphysema, unspecified emphysema type ([facility]/HCC); Type 2 diabetes mellitus without complication, without long-term current use of insulin ([facility]); Mixed hyperlipidemia; Obesity (BMI 30-39.9); Dietary counseling; Exercise counseling; Routine physical examination; Preventative health care; Erectile dysfunction due to arterial insufficiency 12/21/2024 Travel from Last 3 Months Immunizations Name Administration [...] Pressure 138/72 03/18/2025 7:59 AM EDT Pulse 72 02/14/2025 4:44 PM EDT [...] Description 03/22/2025 11:00 AM EDT Clinical Support [facility] [address] [place] [address] Maria Isabel Elam, RN [address] [place] [address] 04/07/2025 2:15 PM EDT Office Visit [facility] MEDICINE [address] [place] [address] Colton Nelson MD [address] [place] [address] 04/13/2025 2:00 PM EDT Office Visit [facility] ADULT DENTAL [address] [place] [address] Bennett Yung, KAELA [address] [place] [address] Health Maintenance Due Date Last Done Comments Eye Exam 1955 RSV Patients and Patients Aged 60 years or older (1 - 1-dose 75+ series) 2022 Diabetes: Hemoglobin A1C 05/07/2025 025, 11/11/2024, 08/12/2024, Additional history exists Diabetes: Foot Exam 08/12/2025 08/12/2024, 08/12/2024, 08/12/2024, Additional history exists Dental Oral Exam 09/18/2025 03/18/2025, , 02/17/2023 Dental Prophylaxis 09/18/2025 03/18/2025, 1 , 10/27/2023, Additional history exists Alcohol/Substance Use Screening 11/11/2025 11/11/2024 SDOH Screening 12/09/2025 12/09/2024 Lipid Panel 12/29/2025 12/29/2024, 01/23, 04/19/2022, Additional history exists Depression Screening 02/04/2026 02/04/2025, 02/05/20 Diabetes: Urine Protein Screening 02/04/2026 02/04/2025, 12/29/2024, 04/19/2022, Additional history exists Dental X-Ray: Full Mouth 02/18/2026 02/17/2023 Tobacco Screening 03/18/2026 03/18/2025 Dental X-Ray: Bitewings 03/19/2026 03/18/20, 09/09/2024, 02/17/2023 DTaP/Tdap/Td Vaccines (2 - Td or [...] Procedure Name Priority Date/Time Associated Diagnosis Comments ADJUST PARTIAL DENTURE - MANDIBULAR Routine 03/18/2025 8:00 AM EDT PERIODIC ORAL EVALUATION - ESTABLISHED PATIENT Routine 03/18/2025 8:00 AM EDT 1,2,3 INTRAORAL - PERIAPICAL FIRST RADIOGRAPHIC IMAGE Routine 03/18/2025 8:00 AM EDT Erosion of teeth, limited to enamel Fractured dental mormonism with loss of material Dental calculus Gingival recession, generalized Periodontal disease Staining (discoloration) of teeth BITEWINGS - 4 RADIOGRAPHIC IMAGES Routine 03/18/2025 8:00 AM EDT Erosion of teeth, limited to enamel Fractured dental mormonism with loss of material Dental calculus Gingival recession, generalized Periodontal disease Staining (discoloration) of teeth CASE PRESENTATION, DETAILED AND EXTENSIVE TREATMENT PLANNING Routine 03/18/2025 8:00 AM EDT Erosion of teeth, limited to enamel Fractured dental mormonism with loss of material Dental calculus Gingival recession, generalized Periodontal disease Staining (discoloration) of teeth ORAL HYGIENE INSTRUCTIONS Routine 03/18/2025 8:00 AM EDT Erosion of teeth, limited to enamel Fractured dental mormonism with loss of material Dental calculus Gingival recession, generalized Periodontal disease Staining (discoloration) of teeth TOPICAL APPLICATION OF FLUORIDE VARNISH Routine 03/18/2025 8:00 AM EDT Erosion of teeth, limited to enamel Fractured dental mormonism with loss of material Dental calculus Gingival recession, generalized Periodontal disease Staining (discoloration) of teeth PROPHYLAXIS - ADULT Routine 03/18/2025 8 :00 AM EDT Dental calculus Gingival recession, generalized Periodontal disease Staining (discoloration) of teeth 21 B(V) AMALGAM FILLING Routine 03/18/2025 12:00 AM EDT VITAMIN B12/FOLATE, SERUM PANEL Routine 02/04/2025 3:02 [...] without long-term current use of insulin (CMS/HCC) INTRAORAL - COMPLETE SERIES OF RADIOGRAPHIC IMAGES [...] Vitamin B12 479 200 - 900 pg/mL [facility] Comment:NORMAL 200-900 PG/ML INDETERMINATE 160-199 PG/ML DEFICIENT < 160 PG/ML Folate 13.5 > or = 4.0 ng/mL [facility] Comment:Reference Values:> o r = 4.0 ng/mL< 4.0 ng/mL suggests folate deficiency Methotrexate, aminopterin and folinic acid(leucovorin) are chemotherapeutic agents whose molecularstructures are similar to folate; therefore, the Architectfolate assay cannot be used for patients using these drugs. Blood Venous blood specimen / Unknown 02/04/2025 3:02 PM EDT 02/04/2025 4:20 PM EDT Constance Poole MD LAB BLOOD ORDERABLES Final Result Performing Organization Address [facility] Co de Phone Number [facility] [address] [place] [phone] * TSH with Reflex to Free T4 (02/04/2025 3:02 PM EDT) TSH reflex Free T4 0.61 0.32 - 4.0 uIU/mL [facility] Blood Venous blood specimen / Unknown 02/04/2025 3:02 PM EDT 02/04/2025 4:20 PM EDT us Constance Poole MD LAB BLOOD ORDERABLES Final Result Performing Organization Address [facility] de Phone Number [facility] [address] [place] [phone] * Albumin, Random Urine W/Creatinine (02/04/2025 3:02 PM EDT) Only the most recent of2 resultswithin the time period is included. Creatinine, Urine 157.11 mg/dL [facility] Microalbumin Urine 12.0 mg/L [facility] Microalbum Creatinine Ratio Ur 7.6 <30 ug/mg cr [facility] Comment:Albumin/Creatinine R atio Reference Ranges: Normal: < 30 ug/mg creatinine Microalbuminuria: 30 - 300 ug/mg creatinineClinical Albuminuria: > 300 ug/mg creatinine Urine (Urine, Random) 02/04/2025 3:02 PM EDT 02/04/2025 4:10 PM EDT us Colton De Leon MD LAB URINE ORDERABLES Final Result [facility] [address] [place] [address] [phone] * (ABNORMAL) CBC auto differential (02/04/2025 3:02 PM EDT) White Blood Count 6.6 4.8 - 10.8 X10*3/uL [facility] Red Blood Count 4.22(L) 4.60 - 5.80 X10*6/uL [facility] Hemoglobin 12.8(L) 14.0 - 18.0 g/dl [facility] Hematocrit 39.0(L) 42.0 - 52.0 % [facility] Mean Corpuscular Volume 92.4 80.0 - 98.0 fL [facility] Mean Corpuscular Hemoglobin 30.3 27.0 - 33.0 pg [facility] Mean Corpuscular HGB Conc 32.8 31.0 - 36.0 g/dl [facility] Red Cell Distribution Width 13.2 11.0 - 16.0 % [facility] Platelet Count 230 160 - 400 X10*3/uL [facility] Mean Platelet Volume 10.2 9.4 - 12.4 fL [facility] Neutrophils Percent Auto 65.4 45 - 73 % [facility] Imm Gran Pct Auto 0.2 0.0 - 0.4 % [facility] Lymphocytes Percent Auto 24.2 20 - 40 % [facility] Monocytes Percent Auto 7.0 2 - 11 % [facility] Eosinophils Percent Auto 2.0 0 - 4 % [facility] Basophils Percent Auto 1.2 0 - 2 % [facility] NRBC Pct Auto 0.0 0.0 - 0.2 /100WBC [facility] Neutrophils Absolute Auto 4.3 2.0 - 8.3 x10*3/uL [facility] Imm Gran Abs Auto 0.01 0.00 - 0.03 X10*3/uL [facility] Lymphocytes Absolute Auto 1.6 1.2 - 4.9 X10*3/uL [facility] Monocytes Absolute Auto 0.5 0.1 - 1.2 X10*3/uL [facility] Eosinophils Absolute Auto 0.1 0.0 - 0.4 X10*3/uL [facility] Basophils Absolute Auto 0.1 0.0 - 0.2 X10*3/uL [facility] NRBC Abs Auto 0.000 0.0 - 0.012 X10*3/uL [facility] Blood Venous blood specimen / Unknown 02/04/2025 3:02 PM EDT 02/04/2025 4:20 PM EDT us Constance Poole MD LAB BLOOD ORDERABLES Final Result Performing Organization Address [facility]/ZIP Co de Phone Number [facility] [address] [place] [phone] * RPR (Monitor) with Reflex to??Titer (02/04/2025 3:02 PM EDT) RPR (Monitor) w/Refl Titer NON-REACTI VE NON-REACT [facility] Comment:THIS TEST WAS PERFOR MED AT:[email or web address] [place] [phone] MEADOWS MD Rapid Plasma Reagin Ab Titer TNP [facility] Blood Venous blood specimen / Unknown 02/04/2025 3:02 PM EDT 02/04/2025 4:20 PM EDT us Constance Poole MD LAB BLOOD ORDERABLES Final Result Performing Organization Address [facility]/ZIP Co de Phone Number [facility] [address] [place] [phone] * (ABNORMAL) Hemoglobin A1c (02/04/2025 3:02 PM EDT) Hemoglobin A1c 7.1(H) <6.0 % [facility] Comment:Hemoglobin A1C Refer ence Range Adults: 4.8 - 6.0 % Non diabetic: < 6.0 % Goal: < 7.0 %Additional Action Suggested: > 8.0 %Note: Hemoglobin A1c results are invalid for patients with abnormal amounts of HbF. Blood transfusions may impact the HbA1c concentration in the patient sample. Estimated Average Glucose 157 mg/dL [facility] Comment:eAG = Estimated ave rage glucose which is %A1C expressed asaverage glucose, using the formula of the [id number] Glucose study (ADAG), Diabetes Care, Vol.31,#8,2007 Blood Venous blood specimen / Unknown 02/04/2025 3:02 PM EDT 02/04/2025 4:20 PM EDT us Constance Poole MD LAB BLOOD ORDERABLES Final Result [facility] [address] [place] [phone] * (ABNORMAL) Comprehensive Metabolic Panel (02/04/2025 3:02 PM EDT) Only the most recent of3 resultswithin the time period is included. Pathologist [facility] Sodium 142 135 - 145 mmol/L [facility] Potassium 4.0 3.3 - 5.1 mmol/L [facility] Chloride 104 96 - 108 mmol/L [facility] Carbon Dioxide 29 22 - 29 mmol/L [facility] Anion Gap 13 12 - 20 [facility] Urea Nitrogen (BUN) 8(L) 9 - 16 mg/dL [facility] Creatinine, Serum 0.87 0.5 - 1.4 mg/dL [facility] Estimated Glomerular Filt Rate >60 [facility] Comment:Chronic Kidney Disea se: Estimated GFR < 60 mL/min/1.17l6Foyhyj Kidney Disease: Estimated GFR < 15 mL/min/1.73m2 Glucose 106 60 - 115 mg/dL [facility] Calcium 9.1 8.4 - 10.2 mg/dL [facility] Bilirubin, Total 0.5 0.0 - 1.0 mg/dL [facility] Aspartate Amino Transferase 26 5 - 37 U/L [facility] Alanine Aminotransferase 21 0 - 40 U/L [facility] Total Protein 7.7 6.5 - 8.0 g/dL [facility] Albumin Level 4.0 3.5 - 5.0 g/dL [facility] Alkaline Phosphatase 68 39 - 117 U/L [facility] Blood Venous blood specimen / Unknown 02/04/2025 3:02 PM EDT 02/04/2025 4:20 PM EDT us Constance Poole MD LAB BLOOD ORDERABLES Final Result [facility] [address] [place] [phone] * Lipid Panel, Standard (12/29/2024 10:54 AM EST) Triglycerides 84 <150 mg/dL [facility] Comment:Desirable Triglyceri de: less than 150 mg/dLBorderline High Triglyceride 150-199 mg/dLHigh Triglyceride: 200-499 mg/dLVery High Triglyceride: greater than or equal to 5OO mg/dL Cholesterol 131 <200 mg/dL [facility] Comment:Desirable Cholestero l: less than 200 mg/dLBorderline High Cholesterol: 200-239 mg/dLHigh Cholesterol: greater than 239 mg/dL LDL Cholesterol Calculated 58 <100 mg/dL [facility] Comment:Desirable LDL: less than 100 mg/dLNear Optimal/Above Optimal LDL: 110- 129 mg/dLBorderline High LDL: 130-159 mg/dLHigh LDL: 160-189 mg/dLVery High LDL: greater than or equal to 190 mg/dL HDL Cholesterol 57 >40 mg/dL [facility] Comment:Desirable HDL: great er than 40 mg/dL Note: This HDL assay may give artificially low results in patients with liver disease. Blood Venous blood specimen / Unknown 12/29/2024 10:54 AM EST 12/29/2024 12:59 PM EST us Colton De Leon MD LAB BLOOD ORDERABLES Final Result [facility] [address] [place] [address] [phone] * (ABNORMAL) POCT Glucose (12/21/2024 1:40 PM EST) Pathologist [facility] Glucose Blood, POC 214(A) 60 - 200 mg/dL [employer] Media Lot # [id number] Lot# Expiration Date Blood Capillary blood specimen / Unknown 12/21/2024 1:40 PM EST us Colton De Leon MD POINT OF CARE TEST EN TER/EDIT ORDERABLES Final Result * HEPATITIS C AB W/REFL TO HCV RNA, QN, PCR (04/19/2022 8:52 AM EDT) Pathologist [facility] HEPATITIS C ANTIBODY NON-REACT [place] NON-REACT [facility] INDEX 0.02 <1.00 [facility] Comment: ?? HCV antibody was non-reactive. There is no laboratory ?? evidence of HCV infection. ?? In most cases, no further action is required. However, if recent HCV exposure is suspected, a test for HCV RNA (test code 60088) is suggested. ?? For additional information please refer to http://education.[employer].VCE/faq/CNV87t4 (This link is being provided for informational/ educational purposes only.) ?? 04/19/2022 8:52 AM EDT us Colton De Leon MD HISTORICAL/NON ORDERA BLE LABS Final Result Performing Organization Address City/[facility]/ZIP Co de Phone Number [facility] [address] [place] [address], * Colonoscopy (08/18/2020) Colonoscopy Normal Normal 08/18/2020 Jacquelin Caballero - 08/18/2020 9:26 AM EDT Recommended 10 year follow up us Historical Provider MD HEALTH MAINTENANCE Final Result from Last 3 Months or Most Recently Relevant to Health Maintenance Insurance [facility] RESIDENTIAL OPTIONS (O D-SNP) [employer] [id number] [facility] Advance Directives Documents on File Type Date Recorded Patient Cutter Barrel Drum Expl anation Advance Directives and Living Will 02/06/2024 8:49 AM Health Care Proxy Care Teams Hardwood Floor Sander Relationship Specialty Start Date End Date Colton Nelson MD [address] [facility] [place] [phone] PCP - General Internal Medicine 05/04/20
--- OUTSIDE RECORDS SUMMARY | 2025-03-21 14:37 | XMS_ITS | Encounter Summary ---
Author Organization [employer] Address [address] [facility] [address] [place] [address] Care Team Providers Care Oracle Brm Developer Name Role Phone Colton Nelson MD Primary Care Provide r Reason for Visit * Reason Comments Med Refill Encounter Details Date Type Department Care Team ([facility] st Contact Info) Description 10/15/2023 Refill [facility] MED[facility] [address] [place], [place] [phone] Colton Nelson MD [address] [place], [place] [phone] Social History Tobacco Use Types Packs/Day Years [...] Description 03/22/2025 11:00 AM EDT Clinical Support [facility] PEDS [address] [place] [address] Maria Isabel Elam, RN [address] [place] [address] 04/07/2025 2:15 PM EDT Office Visit [facility] MED[facility] [address] [place] [address] Colton Nelson MD [address] [place] [address] 04/13/2025 2:00 PM EDT Office Visit [facility] ADULT DENTAL [address] [place] [address] Bennett Yung, DMD [address] [place] [address] documented as of this encounter Visit Diagnoses Not on filedocumented in this encounter Additional Health Concerns Assessment Noted Time PHQ-9 Depression Total Score: 0 12/17/19 23 10:18 AM EST documented as of this encounter Care Teams Oracle Brm Developer Relationship Specialty Start Date End Date Colton Nelson MD [address] [place] [phone] PCP - General Internal Medicine 05/04/20 documented as of this encounter
--- OUTSIDE RECORDS SUMMARY | 2025-03-21 14:37 | XMS_ITS | Encounter Summary ---
Author Organization [email or web address] Address 75 [facility] 7t [place] [address] Care Team Providers Care Window Installation Subcontractor Name Role Phone Colton Nelson MD Primary Care Provide r Reason for Visit * Reason Onset Date Comments Appointment Request 10/30/2023 Encounter Details Date Type Department Care Team ([facility] st Contact Info) Description 10/30/2023 Telephone [facility] MEDICINE [address] [place], [place] [phone] Colton Nelson MD 230 [place], [place] [phone] Appointment Request Social History Tobacco Use Types [...] Tc from pt requesting to r/s his APPEALS ANALYST visit. Please contact pt at [phone]. documented in this encounter Plan of Treatment Upcoming Encounters Date Type Department Care Team (Late st Contact Info) Description 03/22/2025 11:00 AM EDT Clinical Support [facility] CHC MED & PEDS 505 [place] [address] Maria Isabel Elam, RN 505 [place] [address] 04/07/2025 2:15 PM EDT Office Visit [facility] MEDICINE [address] [place] [address] Colton Nelson MD 230 [place] [address] 04/13/2025 2:00 PM EDT Office Visit [facility] ADULT DENTAL 230 [place] [address] Bennett Yung, KAELA 230 [place] [address] documented as of this encounter Visit Diagnoses Not on filedocumented in this encounter Additional Health Concerns Assessment Noted Time PHQ-9 Depression Total Score: 0 12/17/19 23 10:18 AM EST documented as of this encounter Care Teams Window Installation Subcontractor Relationship Specialty Start Date End Date Colton Nelson MD 230 [place] [address] PCP - General Internal Medicine 05/04/20 documented as of this encounter
--- OUTSIDE RECORDS SUMMARY | 2025-03-21 14:37 | XMS_ITS | Encounter Summary ---
Author Organization [employer] [facility] Address [address] [place] [address] 7[place] [address] Care Team Providers Care Salesperson China And Glassware Name Role Phone Colton Nelson MD Primary Care Provide r Encounter Details Date Type Department Care Team (Latest Contact Info) Description 08/09/2019 Abstract [facility] CONVERSIONS Dental, Provider, DDS Social History [...] Description 03/22/2025 11:00 AM EDT Clinical Support [facility] CHC MED & PEDS 505 [place] [address] Maria Isabel Elam, RN 505 [place] [address] 04/07/2025 2:15 PM EDT Office Visit [facility] MEDICINE 230 [place] [address] Colton Nelson MD 230 [place], [place] [phone] 04/13/2025 2:00 PM EDT Office Visit [facility] ADULT DENTAL 230 [place] [address] Bennett Yung, KAELA 230 [place] [address] documented as of this encounter Visit Diagnoses Not on filedocumented in this encounter Care Teams Salesperson [employer] Relationship Specialty Start Date End Date Colton Nelson MD 230 [place] [address] PCP - General Internal Medicine 05/04/20 documented as of this encounter
--- OUTSIDE RECORDS SUMMARY | 2025-03-21 14:37 | XMS_ITS | Encounter Summary ---
Author Organization [facility] Address [address] [place] [address] 7[place] [address] Care Team Providers Care Student Ministries Director Name Role Phone Colton Nelson MD Primary Care Provide r Encounter Details Date Type Department Care Team (Latest Contact Info) Description 12/13/2020 Abstract [facility] CONVERSIONS Dental, Provider, DDS Social [...] 11:00 AM EDT Clinical Support [facility] CHC MED & PEDS 505 [place] [address] Maria Isabel Elam, RN 505 [place] [address] 04/07/2025 2:15 PM EDT Office Visit [facility] MEDICINE 230 [place] [address] Colton Nelson MD 230 [place], [place] [phone] 04/13/2025 2:00 PM EDT Office Visit [facility] ADULT DENTAL 230 [place] [address] Bennett Yung DMD 230 [place] [address] documented as of this encounter Visit Diagnoses Not on filedocumented in this encounter Care Teams Student Ministries Director Relationship Specialty Start Date End Date Colton Nelson MD 230 [place] [address] PCP - General Internal Medicine 05/04/20 documented as of this encounter
--- OUTSIDE RECORDS SUMMARY | 2025-03-21 14:37 | XMS_ITS | Encounter Summary ---
Author Organization [employer] Address 75 [facility] 7t [place] [address] Care Team Providers Care Boatwright Name Role Phone Colton Nelson MD Primary Care Provide r Reason for Visit * Reason Comments Med Refill Encounter Details Date Type Department Care Team ([facility] st Contact Info) Description 10/09/2023 Refill [facility] CHC MED & PEDS 505 [place], [place] [phone] Gudelia Flores FNP 505 [place], [place] [phone] Social History Tobacco Use Types Packs/Day Years [...] Description 03/22/2025 11:00 AM EDT Clinical Support [facility] CHC MED & PEDS 505 [place] [address] Maria Isabel Elam, ELEAZAR 505 [place] [address] 04/07/2025 2:15 PM EDT Office Visit [facility] MEDICINE 230 [place] [address] Colton Nelson MD 230 [place] [address] 04/13/2025 2:00 PM EDT Office Visit [facility] ADULT DENTAL 230 [place] [address] Bennett Yung, KAELA 230 [place] [address] documented as of this encounter Visit Diagnoses Not on filedocumented in this encounter Additional Health Concerns Assessment Noted Time PHQ-9 Depression Total Score: 0 12/17/19 23 10:18 AM EST documented as of this encounter Care Teams Boatwright Relationship Specialty Start Date End Date Colton Nelson MD [address] [place] [address] PCP - General Internal Medicine 05/04/20 documented as of this encounter
--- OUTSIDE RECORDS SUMMARY | 2025-03-21 14:37 | XMS_ITS | Encounter Summary ---
Author Organization [employer] Address [address] [facility] [address] 7t [place] [address] Care Team Providers Care Cartridge Gauger Name Role Phone Colton Nelson MD Primary Care Provide r Encounter Details Date Type Department Care Team ([facility] st Contact Info) Description 03/18/2025 Telephone [facility] WALK-IN CENTER 230 [place], [place] [phone] Maria Isabel Elam RN 505 [place], [place] [phone] Social History Tobacco Use Types Packs/Day Years [...] encounter Miscellaneous Notes * Telephone Encounter - Fay Tracey - 03/18/2025 9:01 AM EDT Pt is looking for a refill on Oxycodone. Pt can be reached at [phone]. documented in this encounter Plan of Treatment Upcoming Encounters Date Type Department Care Team (Late st Contact Info) Description 03/22/2025 11:00 AM EDT Clinical Support [facility] CHC MED & PEDS 505 [place] [address] Maria Isabel Elam, ELEAZAR 505 [place] [address] 04/07/2025 2:15 PM EDT Office Visit [facility] MEDICINE 230 [place] [address] Colton Nelson MD 230 [place] [address] 04/13/2025 2:00 PM EDT Office Visit [facility] ADULT DENTAL 230 [place] [address] Bennett Yung, DMD 230 [place] [address] documented as of this encounter Visit Diagnoses Not on filedocumented in this encounter Additional Health Concerns Assessment Noted Time PHQ-9 Depression Total Score: 9 02/05/20 25 2:00 PM EDT documented as of this encounter Care Teams Cartridge Gauger Relationship Specialty Start Date End Date Colton Nelson MD 230 [place] [address] PCP - General Internal Medicine 05/04/20 documented as of this encounter
--- OUTSIDE RECORDS SUMMARY | 2025-03-21 14:37 | XMS_ITS | Encounter Summary ---
Author Organization [employer] Address 75 [facility] 7t [place] [address] Care Team Providers Care River Rat Name Role Phone Colotn Nelson MD Primary Care Provide r Encounter Details Date Type Department Care Team (Late st Contact Info) Description 11/13/2023 Abstract [facility] ADULT DENTAL 230 [place], [place] [phone] Xavier Kangaris 230 [place] [address] Social History Tobacco Use Types Packs/Day Years [...] 11:00 AM EDT Clinical Support [facility] MED & PEDS 505 [place] [address] Maria Isabel Elam, ELEAZAR 505 [place] [address] 04/07/2025 2:15 PM EDT Office Visit [facility] MEDICINE 230 [place] [address] Colton Nelson MD 230 [place] [address] 04/13/2025 2:00 PM EDT Office Visit [facility] ADULT DENTAL 230 [place] [address] Bennett Yung, KAELA 230 [place] [address] documented as of this encounter Visit Diagnoses Not on filedocumented in this encounter Additional Health Concerns Assessment Noted Time PHQ-9 Depression Total Score: 0 12/17/19 23 10:18 AM EST documented as of this encounter Care Teams River Rat Relationship Specialty Start Date End Date Colton Nelson MD 230 [place] [address] PCP - General Internal Medicine 05/04/20 documented as of this encounter
--- OUTSIDE RECORDS SUMMARY | 2025-03-21 14:37 | XMS_ITS | Encounter Summary ---
Author Organization [employer] Address 75 [facility] 7t [place] [address] Care Team Providers Care Non Destructive Testing Engineer Name Role Phone Colton Nelson MD Primary Care Provide r Reason for Visit * Reason Comments Med Refill Encounter Details Date Type Department Care Team ([facility] st Contact Info) Description 10/09/2023 Refill [facility] MEDICINE 230 [place], [place] [phone] Colton Nelson MD 230 [place], [place] [phone] Social History Tobacco Use Types Packs/Day Years [...] Description 03/22/2025 11:00 AM EDT Clinical Support [facility] CHC MED & PEDS 505 [place] [address] Maria Isabel Elam, RN 505 [place] [address] 04/07/2025 2:15 PM EDT Office Visit [facility] MEDICINE 230 [place] [address] Colton Nelson MD 230 [place] [address] 04/13/2025 2:00 PM EDT Office Visit [facility] ADULT DENTAL 230 [place] [address] Bennett Yung, DMD 230 [place] [address] documented as of this encounter Visit Diagnoses Not on filedocumented in this encounter Additional Health Concerns Assessment Noted Time PHQ-9 Depression Total Score: 0 12/17/19 23 10:18 AM EST documented as of this encounter Care Teams Non Destructive Testing Engineer Relationship Specialty Start Date End Date Coltno Nelson MD [address] [place] [address] PCP - General Internal Medicine 05/04/20 documented as of this encounter
--- OUTSIDE RECORDS SUMMARY | 2025-03-21 14:38 | XMS_ITS | Encounter Summary ---
Author Organization [employer] Address 75 [facility] 7t [place] [address] Care Team Providers Care Proof Technician Helper Name Role Phone Colton Nelson MD Primary Care Provide r Reason for Visit * Reason Onset Date Comments Reschedule 02/18/2024 Encounter Details Date Type Department Care Team ([facility] st Contact Info) Description 02/18/2024 Telephone [facility] MEDICINE 230 [place], [place] [phone] Colton Nelson MD 230 [place], [place] [phone] Reschedule Social History Tobacco Use Types Packs/Day [...] Tc from pt requesting to reschedule 02/17 ECHO TECHNICIAN appointment. Please contact pt at [phone] documented in this encounter Plan of Treatment Upcoming Encounters Date Type Department Care Team (Late st Contact Info) Description 03/22/2025 11:00 AM EDT Clinical Support [facility] CHC MED & PEDS 505 [place] [address] Maria Isabel Elam, ELEAZAR 505 [place] [address] 04/07/2025 2:15 PM EDT Office Visit [facility] MEDICINE 230 [place] [address] Colton Nelson MD 230 [place] [address] 04/13/2025 2:00 PM EDT Office Visit [facility] ADULT DENTAL 230 [place] [address] Bennett Yung, KAELA 230 [place] [address] documented as of this encounter Visit Diagnoses Not on filedocumented in this encounter Additional Health Concerns Assessment Noted Time PHQ-9 Depression Total Score: 0 12/17/19 10:18 AM EST documented as of this encounter Care Teams Proof Technician Helper Relationship Specialty Start Date End Date Colton Nelson MD 230 [place] [address] PCP - General Internal Medicine 05/04/20 documented as of this encounter
--- OUTSIDE RECORDS SUMMARY | 2025-03-21 14:38 | XMS_ITS | Encounter Summary ---
Author Organization [employer] [facility] Address [address] [place] [address] 7[place] [address] Care Team Providers Care Educational Fundraising Director Name Role Phone Colton Nelson MD Primary Care Provide r Encounter Details Date Type Department Care Team (Latest Contact Info) Description 12/06/2021 Abstract [facility] CONVERSIONS Dental, Provider, DDS Social [...] Description 03/22/2025 11:00 AM EDT Clinical Support [facility] CHC MED & PEDS 505 [place] [address] Maria Isabel Elam, RN 505 [place] [address] 04/07/2025 2:15 PM EDT Office Visit [facility] MEDICINE 230 [place] [address] Colton Nelson MD 230 [place], [place] [phone] 04/13/2025 2:00 PM EDT Office Visit [facility] ADULT DENTAL 230 [place] [address] Bennett Yung DMD 230 [place] [address] documented as of this encounter Visit Diagnoses Not on filedocumented in this encounter Care Teams Educational Fundraising Director Relationship Specialty Start Date End Date Colton Nelson MD 230 [place] [address] PCP - General Internal Medicine 05/04/20 documented as of this encounter
--- OUTSIDE RECORDS SUMMARY | 2025-03-21 14:38 | XMS_ITS | Encounter Summary ---
Author Organization [employer] Address [address] [facility] 7t [place] [address] Care Team Providers Care Teasel Gig Operator Name Role Phone Colton Nelson MD Primary Care Provide r Reason for Visit * Reason Comments Med Refill Encounter Details Date Type Department Care Team (Late st Contact Info) Description 05/17/2024 Refill [facility] MEDICINE 230 [place], [place] [phone] Ashley Carrion, ANP 230 [place] [address] Lumbar disc herniation Social History Tobacco Use [...] Description 03/22/2025 11:00 AM EDT Clinical Support [facility] CHC MED & PEDS 505 [place] [address] Maria Isabel Elam, RN 505 [place] [address] 04/07/2025 2:15 PM EDT Office Visit [facility] MEDICINE 230 [place] [address] Colton Nelson MD 230 [place] [address] 04/13/2025 2:00 PM EDT Office Visit [facility] ADULT DENTAL 230 [place] [address] Bennett Yung, DMD 230 [place] [address] documented as of this encounter Visit Diagnoses Diagnosis Lumbar disc herniation Displacement of lumbar intervertebral disc without myelopathy documented in this encounter Additional Health Concerns Assessment Noted Time PHQ-9 Depression Total Score: 0 05/11/20 24 1:30 PM EDT documented as of this encounter Care Teams Teasel Gig Operator Relationship Specialty Start Date End Date Colton Nelson MD [address] [place] [address] PCP - General Internal Medicine 05/04/20 documented as of this encounter
--- OUTSIDE RECORDS SUMMARY | 2025-03-21 14:38 | XMS_ITS | Encounter Summary ---
Author Organization [employer] Address 75 [facility] 7t [place] [address] Care Team Providers Care Sensor Operator Name Role Phone Colton Nelson MD Primary Care Provide r Reason for Visit * Reason Comments Med Refill Encounter Details Date Type Department Care Team ([facility] st Contact Info) Description 06/18/2024 Refill [facility] MEDICINE 230 [place], [place] [phone] Colton Nelson MD 230 [place], [place] [phone] Chronic obstructive pulmonary disease, unspecified COPD type [...] Clinical Support [facility] CHC MED & PEDS 505 [place] [address] Maria Isabel Elam, ELEAZAR 505 [place] [address] 04/07/2025 2:15 PM EDT Office Visit [facility] MEDICINE 230 [place] [address] Colton Nelson MD [address] [place] [address] 04/13/2025 2:00 PM EDT Office Visit [facility] ADULT DENTAL 230 [place] [address] Bennett Yung, DMD 230 [place] [address] documented as of this encounter Visit Diagnoses Diagnosis Chronic obstructive pulmonary disease, unspecified COPD type (CMS/HCC) documented in this encounter Additional Health Concerns Assessment Noted Time PHQ-9 Depression Total Score: 0 05/11/20 24 1:30 PM EDT documented as of this encounter Care Teams Sensor Operator Relationship Specialty Start Date End Date Colton Nelson MD [address] [place] [address] PCP - General Internal Medicine 05/04/20 documented as of this encounter
--- OUTSIDE RECORDS SUMMARY | 2025-03-21 14:38 | XMS_ITS | Encounter Summary ---
Author Organization [employer] Address 75 [facility] 7t [place] [address] Care Team Providers Care Head Sawyer Name Role Phone Colton Nelson MD Primary Care Provide r Reason for Visit * Reason Onset Date Comments Appointment Request 12/23/2023 Encounter Details Date Type Department Care Team ([facility] st Contact Info) Description 12/23/2023 Telephone [facility] MEDICINE 230 [place], [place] [phone] Colton Nelson MD 230 [place], [place] [phone] Appointment Request Social History Tobacco Use Types [...] with pcp 12/18/23. Please contact pt at [phone]. documented in this encounter Plan of Treatment Upcoming Encounters Date Type Department Care Team (Late st Contact Info) Description 03/22/2025 11:00 AM EDT Clinical Support [facility] CHC MED & PEDS 505 [place] [address] Maria Isabel Elam, RN 505 [place] [address] 04/07/2025 2:15 PM EDT Office Visit [facility] MEDICINE 230 [place] [address] Colton Nelson MD 230 [place] [address] 04/13/2025 2:00 PM EDT Office Visit [facility] ADULT DENTAL 230 [place] [address] Bennett Yung, KAELA 230 [place] [address] documented as of this encounter Visit Diagnoses Not on filedocumented in this encounter Additional Health Concerns Assessment Noted Time PHQ-9 Depression Total Score: 0 12/17/19 10:18 AM EST documented as of this encounter Care Teams Head Sawyer Relationship Specialty Start Date End Date Colton Nelson MD 230 [place] [address] PCP - General Internal Medicine 05/04/20 documented as of this encounter
--- OUTSIDE RECORDS SUMMARY | 2025-03-21 14:38 | XMS_ITS | Encounter Summary ---
Author Organization [employer] Address [address] [facility] 7[address] [place] [address] Care Team Providers Care Mechanical Design Engineer Products Name Role Phone Colton Nelson MD Primary Care Provide r Reason for Visit * Reason Comments Med Refill Encounter Details Date Type Department Care Team (Late st Contact Info) Description 04/17/2023 Refill [facility] MED & PEDS 505 [place], [place] [phone] Colton Nelson MD 230 [place] [address] Social History Tobacco Use Types Packs/Day Years [...] Department Care Team (Late Contact Info) Description 03/22/2025 11:00 AM EDT Clinical Support [facility] CHC MED & PEDS 505 [place] [address] Maria Isabel Elam, RN 505 [place], [place] 04/07/2025 2:15 PM EDT Office Visit [facility] 230 [place] [address] Colton Nelson MD 230 [place], [place] 04/13/2025 2:00 PM EDT Office Visit [facility] ADULT DENTAL 230 [place] [address] Bennett Yung, KAELA 230 [place] [address] documented as of this encounter Visit Diagnoses Not on filedocumented in this encounter Additional Health Concerns Assessment Noted Time PHQ-9 Depression Total Score: 0 12/17/19 23 10:18 AM EST documented as of this encounter Care Teams Mechanical Design Engineer Products Relationship Specialty Start Date End Date Colton Nelson MD [address] [place] [address] PCP - General Internal Medicine 05/04/20 documented as of this encounter
--- OUTSIDE RECORDS SUMMARY | 2025-03-21 14:38 | XMS_ITS | Encounter Summary ---
Author Organization [employer] Address 75 [facility] 7t [place] [address] Care Team Providers Care Foreign Language Teacher Name Role Phone Colton Nelson MD Primary Care Provide r Reason for Visit * Reason Comments Med Refill Encounter Details Date Type Department Care Team (Late st Contact Info) Description 04/09/2023 Refill [facility] MED & PEDS 505 [place], [place] [phone] Colton Nelson MD 230 [place] [address] Social History Tobacco Use Types Packs/Day Years [...] Support [facility] CHC MED & PEDS 505 [place] [address] Maria Isabel Elam, RN 505 [place], [place] 04/07/2025 2:15 PM EDT Office Visit [facility] MEDICINE 230 [place] [address] Colton Nelson MD 230 [place], [place] 04/13/2025 2:00 PM EDT Office Visit [facility] ADULT DENTAL 230 [place] [address] Bennett Yung, KAELA 230 [place] [address] documented as of this encounter Visit Diagnoses Not on filedocumented in this encounter Additional Health Concerns Assessment Noted Time PHQ-9 Depression Total Score: 0 12/17/19 23 10:18 AM EST documented as of this encounter Care Teams Foreign Language Teacher Relationship Specialty Start Date End Date Colton Nelson MD [address] [place] [address] PCP - General Internal Medicine 05/04/20 documented as of this encounter
--- OUTSIDE RECORDS SUMMARY | 2025-03-21 14:38 | XMS_ITS | Encounter Summary ---
Author Organization [employer] Address 75 [facility] 7t [place] [address] Care Team Providers Care Registration Manager Name Role Phone Colton Nelson MD Primary Care Provide r Reason for Visit * Reason Onset Date Comments Call Back Request 05/13/2024 Encounter Details Date Type Department Care Team ([facility] st Contact Info) Description 05/13/[address] [facility] MEDICINE 230 [place], [place] [phone] Colton Nelson MD 230 [place], [place] [phone] Call Back Request Social History Tobacco Use [...] from pt requesting a call back with [facility], stated think he needs an appt but not sure about it. documented in this encounter Plan of Treatment Upcoming Encounters Date Type Department Care Team (Late st Contact Info) Description 03/22/2025 11:00 AM EDT Clinical Support [facility] CHC MED & PEDS 505 [place] [address] Maria Isabel Elam, ELEAZAR 505 [place] [address] 04/07/2025 2:15 PM EDT Office Visit [facility] MEDICINE 230 [place] [address] Colton Nelson MD 230 [place] [address] 04/13/2025 2:00 PM EDT Office Visit [facility] ADULT DENTAL 230 [place] [address] Bennett Yung, KAELA 230 [place] [address] documented as of this encounter Visit Diagnoses Not on filedocumented in this encounter Additional Health Concerns Assessment Noted Time PHQ-9 Depression Total Score: 0 05/11/20 24 1:30 PM EDT documented as of this encounter Care Teams Registration Manager Relationship Specialty Start Date End Date Colton Nelson MD 230 [place] [address] PCP - General Internal Medicine 05/04/20 documented as of this encounter
--- OUTSIDE RECORDS SUMMARY | 2025-03-21 14:38 | XMS_ITS | Encounter Summary ---
Author Organization [employer] Address [address] [facility] 7t [place] [address] Care Team Providers Care Golf Ball Winder Name Role Phone Colton Nelson MD Primary Care Provide r Encounter Details Date Type Department Care Team ([facility] Contact Info) Description 04/03/2023 Abstract [facility] MEDICINE [address] [place], [place] [phone] Colton Nelson MD 230 [place], [place] [phone] Social History Tobacco Use Types Packs/Day Years [...] Upcoming Encounters Date Type Department Care Team ([facility] Contact Info) Description 03/22/2025 11:00 AM EDT Clinical Support [facility] CHC MED & PEDS [address] [place], [place] [phone] Maria Isabel Elam, RN 505 [facility] [place], [place] 04/07/2025 2:15 PM EDT Office Visit [facility] MEDICINE [address] [place] [address] Colton Nelson MD 230 [place] [address] 04/13/2025 2:00 PM EDT Office Visit [facility] ADULT DENTAL [address] [place] [address] Bennett Yung, KAELA [address] [place] [address] documented as of this encounter Procedures Procedure [...] documented as of this encounter Care Teams Golf Ball Winder Relationship Specialty Start Date End Date Colton Nelson MD 230 [place], [place] PCP - General Internal Medicine 05/04/20 documented as of this encounter
--- OUTSIDE RECORDS SUMMARY | 2025-03-21 14:38 | XMS_ITS | Encounter Summary ---
Author Organization [employer] Address [address] [place] [address] Care Team Providers Care Crystal Slicer Name Role Phone Colton Nelson MD Primary Care Provide r Reason for Visit * Reason Comments Med Refill Encounter Details Date Type Department Care Team (Late st Contact Info) Description 03/27/2023 Refill [facility] MEDICINE [address] [place] [address] Roxi Scott FNP [address] [place] [address] Dept [place] [address] Social History Tobacco Use Types Packs/Day Years [...] Description 03/22/2025 11:00 AM EDT Clinical Support [facility] CHC MED & PEDS 505 [place] [address] Maria Isabel Elam, ELEAZAR [address] [place] [address] 04/07/2025 2:15 PM EDT Office Visit [facility] MEDICINE [address] [place] [address] [phone] Colton Nelson MD 230 [place], [place] [phone] 04/13/2025 2:00 PM EDT Office Visit [facility] ADULT DENTAL [address] [place], [place] [phone] Bennett Yung, DMD [address] [place], [place] [phone] documented as of this encounter Visit Diagnoses Not on filedocumented in this encounter Additional Health Concerns Assessment Noted Time PHQ-9 Depression Total Score: 0 12/17/19 23 10:18 AM EST documented as of this encounter Care Teams Crystal Slicer Relationship Specialty Start Date End Date Colton Nelson MD [address] [place] [address] [phone] PCP - General Internal Medicine 05/04/20 documented as of this encounter
--- OUTSIDE RECORDS SUMMARY | 2025-03-21 14:38 | XMS_ITS | Encounter Summary ---
Author Organization [employer] Address [address] [facility] 7[address] [place] [address] Care Team Providers Care University Dean Name Role Phone Colton Nelson MD Primary Care Provide r Reason for Visit * Reason Onset Date Comments Appointment Request 11/18/2024 Encounter Details Date Type Department Care Team ([facility] st Contact Info) Description 11/18/2024 Telephone [facility] MEDICINE [address] [place], [place] [phone] Colton Nelson MD 230 [place], [place] [phone] Appointment Request Social History Tobacco Use Types [...] the past 12 months, has t he [employer], gas, oil or water [employer] threatened to shut off services in your [...] pt calling requesting call back to reschedule EPIC SPECIALIST visit. Please contact pt at [phone]. (Portuguese Speaker) documented in this encounter Plan of Treatment Upcoming Encounters Date Type Department Care Team ([facility] st Contact Info) Description 03/22/2025 11:00 AM EDT Clinical Support [facility] CHC MED & PEDS 505 [place] [address] Maria Isabel Elam, ELEAZAR 505 [place] [address] 04/07/2025 2:15 PM EDT Office Visit [facility] MEDICINE [address] [place] [address] Colton Nelson MD 230 [place] [address] 04/13/2025 2:00 PM EDT Office Visit [facility] ADULT DENTAL [address] [place], [place] [phone] Bennett Yung DMD [address] [place] [address] documented as of this encounter Visit Diagnoses Not on filedocumented in this encounter Additional Health Concerns Assessment Noted Time PHQ-9 Depression Total Score: 0 05/11/20 24 1:30 PM EDT documented as of this encounter Care Teams University Dean Relationship Specialty Start Date End Date Colton Nelson MD 230 [place], [place] [phone] PCP - General Internal Medicine 05/04/20 documented as of this encounter
--- OUTSIDE RECORDS SUMMARY | 2025-03-21 14:38 | XMS_ITS ---
Author Name Rashawn LYON, Mr. Maureen Antunez Address [address] [place] [address] Phone [phone] [facility] Care Team Providers Care Sql Engineer Name Role Phone Alan Morocho Unavailable [phone] Reason for Referral Not Available Allergies, adverse [...] Pain Assessment - NO pain present (1126F) [facility] [place] Pain Assessment - NO pain present (1126F) [facility] [place] Pain Assessment - NO pain present (1126F) [facility] [place] Pain Assessment - NO pain present (1126F) [facility] [place] Pain Assessment - NO pain present (1126F) [facility] [place] Pain Assessment - NO pain present (1126F) [facility] [place] Pain Assessment - NO pain present (1126F) [facility] [place] Type 2 diabetes w diabetic peripheral angiopath w/o gangreneType 2 diabetes mellitus with other specified complicationHyperlipidemia, unspecifiedEssential (primary) hypertensionChronic obstructive pulmonary disease, unspecifiedVitamin D deficiency, unspecifiedGastro-esophageal reflux disease without esophagitisMale erectile dysfunction, unspecifiedRestless legs syndrome Pain Assessment - NO pain present (1126F) [facility] [place] Pain Assessment - NO pain present (1126F) [facility] [place] Vital Signs Date of Collection Vitals 2022-09-23 13:16:02 Height - 162.56 cmWe ight - 78.02 kgBody Mass Index (BMI) - 29.52 kg/m2BP Diastolic - 88.0 mm[Hg]BP Systolic - 168.0 mm[Hg]Heart Rate - 62.0 /min Social History Social History Social History Observation Description Effec tive Time Current Smoking Status Former smoker 2025-02-23 10 Sex Male History of Procedures Procedures Service [...] (do not use for phone, instead use [id number]) 51752 2022-09-23 No Data Available No Data Availa [...] completed by a nacho and video using [employer] Tablet. Introductory visit with [employer] to establish care. Today, patient has chief complaint of: establishing care.Reviewed Allergies, Medications, Active Medical conditions, past medical/surgical history, Social history. 2022-09-23 Most recent hospital stay(s) or ER visit(s) and precipitating factors: Denies recent ER/hospital visit 2022-09-23 Advance care planbenita blandon discussion. Conversation today with: member; Advance Care PlanDo you have an Advance Care Plan? NoDo you have a Durable Power of Telecommunications Specialist for Healthcare, or Healthcare Proxy? NoIf so, Who?Code Status: UnknownOther Details of discussion (Who was present, patients description of wishes/goals):
[2025-03-21 14:44] LABS: Prostate Specific Antigen 4.16 ng/mL (<0.05-4.0)
[2025-03-25 14:43] LABS: Testosterone, Total 227 ng/dL (250-1100)
== END 2025-03-21 12:13 | disposition home or self-care (01) ==
LOC: HO.LAB 12:12
PROVIDERS: PCP Internal Medicine; Visit Provider Urology
DX: E29.1 Testicular hypofunction (principal); Z12.5 Encounter for screening for malignant neoplasm of prostate
CPT/HCPCS: 36415; 84153; 84403

== ENCOUNTER 2025-03-29 14:46 | Outpatient (AMB) | payer OTHER, SELFPAY ==
--- NOTE | 2025-03-29 14:47 | A.OFFVIS_ITS ---
Intake Visit Reasons: 6m/PSA/TESTO Intake Note: Patient is present for 6M/PSA/TESTO Urology Medication:SILDENAFIL,TADALAFIL,TESTOSTERONE Antibiotic Allergy:NONE Blood Thinner:NONE Inbound Customer Service Representative Required: No Allergies hydrochlorothiazide Allergy (Unknown, Verified 03/29/25 14:50) unknown lisinopril Allergy (Unknown, Verified 03/29/25 14:50) unknown olmesartan Allergy (Unknown, Verified 03/29/25 14:50) unknown venom-honey bee Allergy (Unknown, Verified 03/29/25 14:50) unknown HPI Comments Details: Jose Ramon is a pleasant Honduran-speaking male. 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 Declining response to Viagra demand Switched to daily tadalafil PFSH Medical History Allergic rhinitis RLS (restless legs syndrome) COPD (chronic obstructive pulmonary disease) ALLY on CPAP Obesity (BMI 30-39.9) RLS (restless legs syndrome) GERD (gastroesophageal reflux disease) COPD (chronic obstructive pulmonary disease) Carpal tunnel syndrome Lumbar disc herniation Back pain Syncope Arthritis Arrhythmia Asthma DMII (diabetes mellitus, type 2) HTN (hypertension) Surgical History History of cervical spinal surgery History of lumbosacral spine surgery History of cholecystectomy Family History Father Stroke Social History Household Members: Spouse Housing: Apartment Do you presently have visiting nurse or other home services: No (CREMATOR services at home 2x week) Alcohol intake: current Alcohol intake frequency: holidays/special occasions only Patient Tobacco Use Status: Former Tobacco user Tobacco use type: Cigarette e-Cigarette/Vaping Use: Former Use Current occupational status: retired Current occupation: rt handed Review of Systems Const Denies chills and Denies fever(s) Card Reports no additional complaints and Denies syncope Resp Denies cough GI Denies abdominal pain and Denies heartburn Reports as per HPI and Denies change in libido Neuro Denies syncope Psych Denies change in libido Endo Denies change in libido Physical Exam Const General: cooperative, healthy appearing, comfortable and no acute distress Orientation/consciousness: patient oriented x3 HEENT Face and sinus: Yes normal facial exam Mouth: moist mucous membranes Neck Neck: Yes normal visual inspection, Yes full ROM and Yes trachea midline Chest Chest palpation & inspection: normal inspection of the chest Resp Effort & Inspection: normal respiratory effort, able to speak in complete sentences and no respiratory distress GI Inspection: Yes normal to inspection Back/Spine/Pelvis Cervical Spine: normal cervical lordosis Thoracic/Lumbar Spine: thoracic and lumbar spine normal to inspection Skin General skin exam: no rashes or lesions noted Neuro General: patient oriented x3, gait normal, tone normal and moves all extremities Extrem General: Yes normal to inspection and Yes capillary refill normal Assessment & Plan Assessment & Plan (1) Hypogonadism in male: Code(s): E29.1 - Testicular hypofunction Category: Medical (2) Erectile dysfunction due to arterial insufficiency: Code(s): N52.01 - Erectile dysfunction due to arterial insufficiency Category: Medical Plan Twelve month follow-up PSA Orders: Orders Prostate Specific Antigen 12 Months E29.1 - Testicular hypofunction Medications: Discontinued testosterone apply 2 pumps over max area - alternate shoulders on alternate days Discontinued Reason: Patient Completed Course 2 pumps topical DAILY 30 days 75 grams 5RF E29.1 - Testicular hypofunction, R79.89 - Other specified abnormal findings of blood chemistry tadalafil Discontinued Reason: Patient Completed Course 10 mg PO DAILY 90 days 90 tabs 1RF sexual activity E29.1 - Testicular hypofunction sildenafil administer 30 minutes to 4 hours before activity Discontinued Reason: Patient Completed Course 100 mg PO DAILY 30 days PRN 30 tabs 11RF sexual activity E29.1 - Testicular hypofunction Patient Instructions: This note is constructed using voice recognition software. While every effort has been made to ensure accuracy television news reporter errors may have been included. Imaging studies, laboratory and physical exam results were discussed and reviewed in detail. No major barriers to patient understanding were identified. An opportunity to ask questions regarding the treatment plan was provided. All questions were answered. The patient expressed understanding and agreement with the above treatment plan. The patient is aware they should contact our office by phone for worsening of th eir current condition or the appearance of new urologic symptoms. Compliance is encouraged with any medications and followup testing that is ordered. It is a privilege to participate in the urologic care of your patient. If you have any questions or concerns regarding treatment for the above conditions, or other urologic issues, please do not hesitate to contact me. The office telephone contact is [phone]. Sincerely, Dr Sean Landis MD, [facility] - Urology Compassionate Specialist Care for the Genitourinary System Coding Level of Care Code Est Pt Level 3 (10642) Diagnoses Hypogonadism in male E29.1 Erectile dysfunction due to arterial insufficiency N52.01
--- OUTSIDE RECORDS SUMMARY | 2025-03-29 15:57 | XMS_ITS | Encounter Summary ---
Author Organization [email or web address] Address [address] [facility] 7t [place] [address] Care Team Providers Care Leak Detector Name Role Phone Colton Nelson MD Primary Care Provide r Reason for Visit * Reason Comments Med Refill Encounter Details Date Type Department Care Team ([facility] st Contact Info) Description 10/15/2023 Refill [facility] MEDICINE [address] [place], [place] [phone] Colton Nelson MD 230 [place], [place] [phone] Social History Tobacco Use Types Packs/Day Years [...] Care Team (Late st Contact Info) Description 04/13/2025 2:00 PM EDT Office Visit [facility] ADULT DENTAL [address] [place] [address] Bennett Yung, DMD 230 [place] [address] 04/14/2025 3:15 PM EDT Office Visit [facility] MEDICINE [address] [place] [address] Colton Nelson MD 230 [place] [address] 05/30/2025 2:00 PM EDT Telemedicine [facility] CHC MED & PEDS [address] [place], [place] [phone] Maria Isabel Elam, RN 505 [place] [address] documented as of this encounter Visit Diagnoses Not on filedocumented in this encounter Additional Health Concerns Assessment Noted Time PHQ-9 Depression Total Score: 0 12/17/19 23 10:18 AM EST documented as of this encounter Care Teams Leak Detector Relationship Specialty Start Date End Date Colton Nelson MD [address] [place] [address] PCP - General Internal Medicine 05/04/20 documented as of this encounter
--- OUTSIDE RECORDS SUMMARY | 2025-03-29 15:57 | XMS_ITS | Encounter Summary ---
Author Organization [employer] Address [address] [facility] 7t [place] [address] Care Team Providers Care Education Department Chair Name Role Phone Colton Nelson MD Primary Care Provide r Reason for Visit * Reason Onset Date Comments Appointment Request 10/30/2023 Encounter Details Date Type Department Care Team ([facility] st Contact Info) Description 10/30/2023 Telephone [facility] MEDICINE [address] [place], [place] [phone] Colton Nelson MD 230 [place], [place] [phone] Appointment Request Social History Tobacco Use Types [...] Tc from pt requesting to r/s his GALLERY MANAGER visit. Please contact pt at [phone]. documented in this encounter Plan of Treatment Upcoming Encounters Date Type Department Care Team (Late st Contact Info) Description 04/13/2025 2:00 PM EDT Office Visit [facility] ADULT DENTAL [address] [place] [address] Bennett Yung, DMD [address] [place] [address] 04/14/2025 3:15 PM EDT Office Visit [facility] MEDICINE [address] [place] [address] Colton Nelson MD [address] [place] [address] 05/30/2025 2:00 PM EDT Telemedicine [facility] CHC MED & PEDS 505 [place] [address] Maria Isabel Elam, RN 505 [place] [address] documented as of this encounter Visit Diagnoses Not on filedocumented in this encounter Additional Health Concerns Assessment Noted Time PHQ-9 Depression Total Score: 0 12/17/19 10:18 AM EST documented as of this encounter Care Teams Education Department Chair Relationship Specialty Start Date End Date Colton Nelson MD [address] [place] [address] PCP - General Internal Medicine 05/04/20 documented as of this encounter
--- OUTSIDE RECORDS SUMMARY | 2025-03-29 15:57 | XMS_ITS | Encounter Summary ---
Author Organization [employer] Address [address] [facility] [address] 7t [place] [address] Care Team Providers Care Cargo Tank Mechanic Name Role Phone Colton Nelson MD Primary Care Provide r Encounter Details Date Type Department Care Team (Late st Contact Info) Description 11/13/2023 Abstract [facility] ADULT DENTAL [address] [place], [place] [phone] Xavier Kangaris [address] [place] [address] Social History Tobacco Use Types Packs/Day Years [...] Description 04/13/2025 2:00 PM EDT Office Visit [facility] ADULT DENTAL [address] [place] [address] Bennett Yung, DMD [address] [place] [address] 04/14/2025 3:15 PM EDT Office Visit [facility] MEDICINE [address] [place] [address] Colton Nelson MD 230 [place] [address] 05/30/2025 2:00 PM EDT Telemedicine [facility] CHC MED & PEDS 505 [place], [place] [phone] Maria Isabel Elam, ELEAZAR 505 [place] [address] documented as of this encounter Visit Diagnoses Not on filedocumented in this encounter Additional Health Concerns Assessment Noted Time PHQ-9 Depression Total Score: 0 12/17/19 23 10:18 AM EST documented as of this encounter Care Teams Cargo Tank Mechanic Relationship Specialty Start Date End Date Colton Nelson MD [address] [place] [address] PCP - General Internal Medicine 05/04/20 documented as of this encounter
--- OUTSIDE RECORDS SUMMARY | 2025-03-29 15:57 | XMS_ITS | Encounter Summary ---
Author Organization [employer] Address [address] [facility] 7t [place] [address] Care Team Providers Care Bottom Stainer Name Role Phone Colton Nelson MD Primary Care Provide r Reason for Visit * Reason Comments Med Refill Encounter Details Date Type Department Care Team ([facility] st Contact Info) Description 10/09/2023 Refill [facility] CHC MED & PEDS [address] [place], [place] [phone] Gudelia Flores FNP 505 [place], [place] [phone] Social History Tobacco Use Types Packs/Day Years [...] Description 04/13/2025 2:00 PM EDT Office Visit [facility] ADULT DENTAL 230 [place] [address] Bennett Yung, KAELA 230 [place] [address] 04/14/2025 3:15 PM EDT Office Visit [facility] MEDICINE [address] [place] [address] Colton Nelson MD 230 [place] [address] 05/30/2025 2:00 PM EDT Telemedicine [facility] CHC MED & PEDS [address] [place], [place] [phone] Maria Isabel Elam, RN 505 [place] [address] documented as of this encounter Visit Diagnoses Not on filedocumented in this encounter Additional Health Concerns Assessment Noted Time PHQ-9 Depression Total Score: 0 12/17/19 23 10:18 AM EST documented as of this encounter Care Teams Bottom Stainer Relationship Specialty Start Date End Date Colton Nelson MD [address] [place] [address] PCP - General Internal Medicine 05/04/20 documented as of this encounter
--- OUTSIDE RECORDS SUMMARY | 2025-03-29 15:57 | XMS_ITS | Encounter Summary ---
Author Organization [employer] Address [address] [facility] 7t [place] [address] Care Team Providers Care Spiral Winding Machine Helper Name Role Phone Colton Nelson MD Primary Care Provide r Reason for Visit * Reason Comments Med Refill Encounter Details Date Type Department Care Team ([facility] st Contact Info) Description 10/09/2023 Refill [facility] MEDICINE 230 [place], [place] [phone] Colton Nelson MD 230 [place], [place] [phone] Social History Tobacco Use Types Packs/Day Years [...] Description 04/13/2025 2:00 PM EDT Office Visit [facility] ADULT DENTAL 230 [place] [address] Bennett Yung, DMD 230 [place] [address] 04/14/2025 3:15 PM EDT Office Visit [facility] MEDICINE [address] [place] [address] Colton Nelson MD 230 [place] [address] 05/30/2025 2:00 PM EDT Telemedicine [facility] CHC MED & PEDS 505 [place], [place] [phone] Maria Isabel Elam, RN 505 [place] [address] documented as of this encounter Visit Diagnoses Not on filedocumented in this encounter Additional Health Concerns Assessment Noted Time PHQ-9 Depression Total Score: 0 12/17/19 23 10:18 AM EST documented as of this encounter Care Teams Spiral Winding Machine Helper Relationship Specialty Start Date End Date Colton Nelson MD [address] [place] [address] PCP - General Internal Medicine 05/04/20 documented as of this encounter
--- OUTSIDE RECORDS SUMMARY | 2025-03-29 15:58 | XMS_ITS | Clinical Summary ---
Author Organization [employer] Address [address] [facility] [address] [place] [address] Care Team Providers Care Iron Guardrail Installer Name Role Phone Colton Nelson MD Primary Care Provide r Allergies Active Allergy Reactions Criticality Noted Date Comments Hydrochlorothiazide Rash Low 11/09/2010 Lisinopril 06/20/2014 Olmesartan Unknown 11/09/2010 Medications * This document contains information received from the source organization and may not represent a complete record from that organization. naloxone (Narcan) 4 mg/0.1 mL nasal spray Administer 0.1 mL into affected nostril(s). Felton 0.1 milliliter by intranasal route in 1 nostril may repeat dose every 2-3 minutes as needed alternating nostrils with each dose 06/07/20 22 Active lidocaine (Lidoderm) 5 % patch Place 1 patch on the skin if needed each day. Apply 1 patch by transdermal route every day (May wear up to 12 hours) as needed for pain 05/22/20 22 Active hydrocortisone 1 % cream Apply topically every 12 (twelve) hours. Apply by topical route 2 times every day a thin layer to the affected area(s) 03/09/20 21 Active aspirin 81 MG EC tablet take 1 tablet (81MG) by oral route every day 02/21/20 21 Active acetaminophen (Tylenol) 500 MG tablet Take 2 tablets by mouth if needed in the morning, at noon, in the evening, and at bedtime for pain. 02/24/20 20 Active Spacer/Aero-Hold ing Chambers (OptiChamber Ebony) device q4h prn Acti ve hydrOXYzine HCl (Atarax) 25 MG tablet TAKE 1 TABLET BY MOUTH THREE TIMES DAILY NEEDED 20 tablet 02/26/20 23 Active ketotifen (Alaway) 0.025 % ophthalmic solution INSTILL 1 DROP BY OPHTHALMIC ROUTE TWICE A DAY INTO THE AFFECTED EYE(S) 5 mL 5 06/19/20 23 Active glucose blood (OneTouch Ultra) test strip TEST BLOOD SUGAR TWICE A DAY 100 each 06/19/20 23 Active Blood Glucose Monitoring Suppl (ONE TOUCH ULTRA 2) w/Device kit 1 vial with breakfast, with lunch, and with evening meal. Test 1 times by intradermal route 2 times every day 1 kit 06/19/20 23 Active Ventolin HFA 108 (90 Base) MCG/ACT inhaler INHALE 2 PUFFS BY MOUTH EVERY 4 TO 6 HOURS NEEDED FOR WHEEZING 09/08/20 23 Active fluticasone (Flonase Allergy Relief) 50 MCG/ACT nasal sprayIndications :Seasonal allergies Administer 2 sprays into each nostril 2 times daily. Inhale 2 spray by intranasal route every day in each nostril 16 g 3 01/27/20 24 Active Testosterone 1.62 % gel APPLY 2 PUMPS TOPICALLY ONCE DAILY. ALTERNATE SHOULDER EVERY DAY. 01/15/20 24 Active melatonin 5 MG tablet Take 2 tablets by mouth if needed at bedtime (sleep). 02/10/20 24 Active rOPINIRole (Requip) 4 MG tablet TAKE 1 TABLET BY MOUTH AT BEDTIME 30 tablet 5 08/26/20 24 Active omeprazole (PriLOSEC) [address] capsule TAKE 1 CAPSULE BY MOUTH EVERY MORNING 90 capsule 3 09/28/20 24 Active cholecalciferol VITAMIN D (Vitamin D-3) 50 MCG (2000 UT) tablet TAKE 1 TABLET BY MOUTH EVERY MORNING 90 tablet 3 09/28/20 24 Active chlorthalidone (Hygroton) 25 MG tabletIndication s:Essential hypertension TAKE 1 TABLET BY MOUTH EVERY MORNING 30 tablet 3 12/21/19 25 Active sildenafil (Viagra) 100 MG tabletIndication s:Erectile dysfunction due to arterial insufficiency Take 1 tablet (100 mg) by mouth if needed each day for erectile dysfunction. 15 tablet 3 12/21/19 25 Active Advair HFA 115-21 MCG/ACT inhaler INHALE 2 PUFFS BY MOUTH TWICE DAILY FOR ASTHMA / (for COPD) RINSE MOUTH AFTER USING. 12 g 11 01/13/20 25 Active albuterol (2.5 MG/3ML) 0.083% nebulizer solutionIndicati ons:Chronic obstructive pulmonary disease, unspecified COPD type (CMS/HCC) INHALE 1 AMPULE USING A NEBULIZER EVERY 4 HOURS NEEDED FOR WHEEZING 90 mL 3 01/17/20 25 Active glipiZIDE XL (Glucotrol XL) 2.5 MG 24 hr tablet TAKE 1 TABLET BY MOUTH EVERY MORNING BEFORE BREAKFAST FOR BLOOD SUGAR > 150 90 tablet 1 02/04/20 25 Active metFORMIN (Glucophage) 1000 MG tabletIndication s:Type 2 diabetes mellitus without complication, without long-term current use of insulin (CMS/HCC) TAKE 1 TABLET BY MOUTH TWICE DAILY IN THE MORNING AND IN THE EVENING WITH FOOD 180 tablet 1 02/04/20 25 Active simvastatin (Zocor) 10 MG tablet TAKE 1 TABLET BY MOUTH EVERY EVENING 90 tablet 1 02/04/20 25 Active amLODIPine (Norvasc) 10 MG tabletIndication s:Primary hypertension TAKE 1 TABLET BY MOUTH EVERY MORNING 90 tablet 1 02/09/20 25 Active montelukast (Singulair) 10 MG tabletIndication s:Pulmonary emphysema, unspecified emphysema type (CMS/HCC) TAKE 1 TABLET BY MOUTH EVERY MORNING 90 tablet 1 02/09/20 25 Active OneTouch Delica Lancets 33G misc TEST BLOOD SUGAR TWICE A DAY 100 each 11 02/24/20 25 Active glucose blood (OneTouch Ultra) test strip Use to test blood sugar 2 times daily 100 each 11 02/24/20 25 2025 Active oxyCODONE-acetam inophen (Percocet) 5-325 MG tabletIndication s:Lumbar disc herniation TAKE 1 TABLET BY MOUTH EVERY 6 HOURS NEEDED FOR SEVERE PAIN 20 tablet 03/19/20 25 Active oxyCODONE-acetam inophen (Percocet) 5-325 MG tabletIndication s:Lumbar disc herniation Take 1 tablet by mouth every 6 (six) hours if needed for severe pain. 20 tablet 02/16/20 25 2024 Discontinued Active Problems Problem Noted Date Diagnosed Date Long-term current use of opiate analgesic 2024 Staining (discoloration) of teeth 03/18/2025 Anxiety 02/04/2025 Assessment & Plan (02/04/2025 4:15 PM EDT): Counseling done today [facility] was called, services were offered and also [...] dry mouth with nasal mask, seen by Tire Maintenance Technician 01/22/2024 who gave him a prescription for full face mask AIRFIT 30 Assessment & Plan (09/18/2023 8:22 AM EDT): ALLY well managed on CPAP C/o dry mouth with nasal mask, seen by Tire Maintenance Technician 09/08/2023 who gave him a prescription for [...] he has yet to hear from the Tax Services Intern office, I have my MA once again [...] AM EST): Pt last seen by his Tire Maintenance Technician Dr Denney 11/11/2024 He is on Advair HFA 2 puffs BID and instructed to use Albuterol PRN only Assessment & Plan (11/11/2024 11:25 AM EST): Pt last seen by his Tire Maintenance Technician Dr Denney 11/11/2024 He is on Advair HFA 2 puffs BID and instructed to use Albuterol PRN only Assessment & Plan (05/11/2024 1:44 PM EDT): Pt last seen by his Tire Maintenance Technician Dr Denney 01/22/2024 He is on Advair [...] EST): Pt here recently seen by his Tire Maintenance Technician Dr Denney 01/22/2024 He is on Advair HFA 2 puffs BID and instructed to use Albuterol PRN only Assessment & Plan (09/18/2023 8:20 AM EDT): Pt here with c/o asthma acting up recently , c/o more wheezing . Recently seen by his Tire Maintenance Technician Dr Denney 09/08/2023 who gave him a [...] on MS contin. Under the care of [facility]. Last note 08/2023 Pt requesting a handycap [...] has been seen in the past at [facility]. Pt requesting a handycap placard Assessment [...] has been seen in the past at [facility]. Restless legs 08/14/2012 Assessment & Plan [...] organization. Date Type Department Care Team Description 03/22/2025 11:00 AM EDT Clinical Support [facility] [address] [place] [address] Maria Isabel Elam RN Chronic low back pain, unspecified back pain laterality, unspecified whether sciatica present (Primary Dx); Long-term current use of opiate analgesic 03/22/2025 Telephone [facility] [address] [place] [address] Maria Isabel Elam RN 03/22/2025 Travel 03/21/2025 Orders Only GENERIC EXTERNAL DATA DEPARTMENT Provider, Generic External Data 03/18/2025 8:00 AM EDT Office Visit [facility] [address] [place] [phone] Brielle Kang Erosion of teeth, limited to enamel (Primary Dx); Fractured dental shinto with loss of material; Dental calculus; Gingival recession, generalized; Periodontal disease; Staining (discoloration) of teeth 03/18/2025 Telephone [facility] [address] [place] [phone] Maria Isabel Elam RN 03/18/2025 Refill [facility] [address] [place] [address] Colton Nelson MD Lumbar disc herniation 02/23/2025 3:30 PM EDT Clinical Support [facility] [address] [place] [phone] Mercedez Mittal, ELEAZAR Forgetfulness 02/23/2025 Travel 02/21/2025 Refill [facility] [address] [place] [phone] Colton Nelson MD 02/18/2025 Travel 02/18/[address] [phone] Colton Nelson MD Appointment Request; advertisement distributor 02/14/2025 5:20 PM EDT Office Visit [facility] [address] [place] [phone] Mark De La Fuente MD Mid back pain (Primary Dx) 02/14/2025 Refill [facility] [address] [place] [address] Maria Isabel Elam RN Lumbar disc herniation 02/14/2025 Telephone [facility] [address] [place] [address] Colton Nelson MD Med Refill 02/08/2025 Telephone [facility] [address] [place] [address] Colton Nelson MD Results 02/07/2025 Refill [facility] [address] [place] [address] Malik Walker MD Primary hypertension; Pulmonary emphysema, unspecified emphysema type ([facility]/HCC) 02/04/2025 1:30 PM EDT Office Visit [facility] [address] [place] [address] Constance Wiggins MD Anxiety (Primary Dx); Forgetfulness; Essential hypertension 02/04/2025 Travel 02/03/2025 Telephone [facility] [address] [place] [address] Colton Nelson MD Nurse Triage 02/02/2025 Refill [facility] [address] [place] [address] Colton Nelson MD Type 2 diabetes mellitus without complication, without long-term current use of insulin ([facility]) 01/17/2025 Refill [facility] [address] [place] [address] Colton Nelson MD Lumbar disc herniation 01/17/2025 Refill [facility] [address] [place] [address] Colton Nelson MD Chronic obstructive pulmonary disease, unspecified COPD type ([facility]) 01/14/2025 Travel 01/14/2025 Telephone [facility] [address] [place] [address] Maria Isabel Elam, RN advertisement distributor 01/14/2025 Telephone [facility] [address] [place] [address] Colton Nelson MD Med Refill 01/12/2025 Refill [facility] [address] [place] [address] Colton Nelson MD from Last 3 Months Immunizations Name Administration [...] Description 04/13/2025 2:00 PM EDT Office Visit [facility] [address] [place] [address] Bennett Yung, DMD [address] [place] [address] 04/14/2025 3:15 PM EDT Office Visit [facility] [address] [place], [place] [phone] Colton Nelson MD [address] [place], [place] [phone] 05/30/2025 2:00 PM EDT Telemedicine [facility] [address], [place] [phone] Maria Isabel Elam, ELEAZAR [address] [place], [place] [phone] Health Maintenance Due Date Last Done Comments [...] Name Priority Date/Time Associated Diagnosis Comments POCT OLGA-14 URINE DRUG SCREEN Routine 03/22/2025 11:19 AM EDT Long-term current use of opiate analgesic Chronic low back pain, unspecified back pain laterality, unspecified whether sciatica present TESTOSTERONE, TOTAL, MALES (ADULT), IA Routine 03/21/2025 12:59 PM EDT PSA, TOTAL Routine 03/21/2025 12:59 PM EDT ADJUST PARTIAL DENTURE - MANDIBULAR Routine 03/18/2025 8:00 AM EDT PERIODIC ORAL EVALUATION - ESTABLISHED PATIENT Routine 03/18/2025 8:00 AM EDT 1,2,3 INTRAORAL - PERIAPICAL FIRST RADIOGRAPHIC IMAGE Routine 03/18/2025 8:00 AM EDT Erosion of teeth, limited to enamel Fractured dental shinto with loss of material Dental calculus Gingival recession, generalized Periodontal disease Staining (discoloration) of teeth BITEWINGS - 4 RADIOGRAPHIC IMAGES Routine 03/18/2025 8:00 AM EDT Erosion of teeth, limited to enamel Fractured dental shinto with loss of material Dental calculus Gingival recession, generalized Periodontal disease Staining (discoloration) of teeth CASE PRESENTATION, DETAILED AND EXTENSIVE TREATMENT PLANNING Routine 03/18/2025 8:00 AM EDT Erosion of teeth, limited to enamel Fractured dental shinto with loss of material Dental calculus Gingival recession, generalized Periodontal disease Staining (discoloration) of teeth ORAL HYGIENE INSTRUCTIONS Routine 03/18/2025 8:00 AM EDT Erosion of teeth, limited to enamel Fractured dental shinto with loss of material Dental calculus Gingival recession, generalized Periodontal disease Staining (discoloration) of teeth TOPICAL APPLICATION OF FLUORIDE VARNISH Routine 03/18/2025 8:00 AM EDT Erosion of teeth, limited to enamel Fractured dental shinto with loss of material Dental calculus Gingival [...] Recently Relevant to Health Maintenance Results * POCT OLGA-14 Urine Drug Screen (03/22/2025 11:19 AM EDT) Urine Urine specimen obtained by clean catch procedure / Unknown 03/22/2025 11:19 AM EDT Narrative Maria Isabel Elam RN - 03/22/2025 11:19 AM EDT negative AMP, BAR, BUP, BZO, SKIP, FTY, MDMA, MET, MOP, MTD, OXY, PCP, TCA, THC. Lot# [id number] Exp: 07-13-26 Colton De Leon MD POINT OF CARE TEST EN TER/EDIT ORDERABLES Final Result * (ABNORMAL) Testosterone, Total, males (Adult), IA (03/21/2025 12:59 PM EDT) Testosterone, Total 227(A) 250 - 1100 ng/dL [facility] Comment:Men with clinically significant hypogonadalsymptoms and testosterone values repeatedly inthe range of the 200-300 ng/dL or less, maybenefit from testosterone treatment afteradequate risk and benefits counseling.For additional information, please refer tohttp://education.[employer]os[employer]ures.Space Pencil/faq/[email or web address](This link is being provided for informational/educational purposes only.)This test was developed and its analytical performancecharacteristics have been determined by [employer] [place], [place]. It hasnot been cleared or approved by the U.S. Food and DrugAdministration. This assay has been validated pursuantto the CLIA regulations and is used for clinicalpurposes.THIS TEST WAS PERFORMED AT:[employer]/[facility] [place] [phone] SAVAGE MD,PHD 03/21/2025 12:5 9 PM EDT 03/21/2025 12:59 PM EDT us Generic External Data Provider LAB BLOOD ORDERAB LES Final Result Performing Organization Address City/[facility]/ZIP Co de Phone Number [facility] [address] [place] [phone] * (ABNORMAL) PSA,Total (03/21/2025 12:59 PM EDT) Prostate Specific Antigen 4.16(H) <0.05 - 4.0 ng/mL [facility] Comment:PSA methodology: Abb belem Alirishabhty i ChemiluminescentMicroparticle Immunoassay (CMIA) 03/21/2025 12:5 9 PM EDT 03/21/2025 12:59 PM EDT us Generic External Data Provider LAB BLOOD ORDERAB LES Final Result Performing Organization Address City/[facility]/ZIP Co de Phone Number [facility] [address] [place] [phone] * Vitamin B12 (Cobalamin) and Folate Panel, Serum (02/04/2025 3:02 PM EDT) Vitamin B12 479 200 - 900 pg/mL [facility] Comment:NORMAL 200-900 PG/ML INDETERMINATE 160-199 PG/ML DEFICIENT < 160 PG/ML Folate 13.5 > or = 4.0 ng/mL [facility] Comment:Reference Values:> o r = 4.0 ng/mL< 4.0 ng/mL suggests folate deficiency Methotrexate, aminopterin and folinic acid(leucovorin) are chemotherapeutic agents whose molecularstructures are similar to folate; therefore, the Architectfolate assay cannot be used for patients using these drugs. Blood Venous blood specimen / Unknown 02/04/2025 3:02 PM EDT 02/04/2025 4:20 PM EDT us Constance Poole MD LAB BLOOD ORDERABLES Final Result [facility] [address] [place] [phone] * TSH with Reflex to Free T4 (02/04/2025 3:02 PM EDT) Pathologist [facility] TSH reflex Free T4 0.61 0.32 - 4.0 uIU/mL [facility] Blood Venous blood specimen / Unknown 02/04/2025 3:02 PM EDT 02/04/2025 4:20 PM EDT us Constance Poole MD LAB BLOOD ORDERABLES Final Result [facility] [address] [place] [phone] * Albumin, Random Urine W/Creatinine (02/04/2025 3:02 PM EDT) Pathologist [facility] Creatinine, Urine 157.11 mg/dL [facility] Microalbumin Urine 12.0 mg/L [facility] Microalbum Creatinine Ratio Ur 7.6 <30 ug/mg cr [facility] Comment:Albumin/Creatinine R atio Reference Ranges: Normal: < 30 ug/mg creatinine Microalbuminuria: 30 - 300 ug/mg creatinineClinical Albuminuria: > 300 ug/mg creatinine Urine (Urine, Random) 02/04/2025 3:02 PM EDT 02/04/2025 4:10 PM EDT us Colton De Leon MD LAB URINE ORDERABLES Final Result [facility] [address] [place] [address] [phone] * (ABNORMAL) CBC auto differential (02/04/2025 3:02 PM EDT) White Blood Count 6.6 4.8 - 10.8 X10*3/uL [facility] Red Blood Count 4.22(L) 4.60 - 5.80 X10*6/uL [facility] Hemoglobin 12.8(L) 14.0 - 18.0 g/dl [facility] Hematocrit 39.0(L) 42.0 - 52.0 % [facility] Mean Corpuscular Volume 92.4 80.0 - 98.0 fL [facility] Mean Corpuscular Hemoglobin 30.3 27.0 - 33.0 pg [facility] Mean Corpuscular HGB Conc 32.8 31.0 - 36.0 g/dl [facility] Red Cell Distribution Width 13.2 11.0 - 16.0 % [facility] Platelet Count 230 160 - 400 X10*3/uL [facility] Mean Platelet Volume 10.2 9.4 - 12.4 fL [facility] Neutrophils Percent Auto 65.4 45 - 73 % [facility] Imm Gran Pct Auto 0.2 0.0 - 0.4 % [facility] Lymphocytes Percent Auto 24.2 20 - 40 % [facility] Monocytes Percent Auto 7.0 2 - 11 % [facility] Eosinophils Percent Auto 2.0 0 - 4 % [facility] Basophils Percent Auto 1.2 0 - 2 % [facility] NRBC Pct Auto 0.0 0.0 - 0.2 /100WBC [facility] Neutrophils Absolute Auto 4.3 2.0 - 8.3 x10*3/uL [facility] Imm Gran Abs Auto 0.01 0.00 - 0.03 X10*3/uL [facility] Lymphocytes Absolute Auto 1.6 1.2 - 4.9 X10*3/uL [facility] Monocytes Absolute Auto 0.5 0.1 - 1.2 X10*3/uL [facility] Eosinophils Absolute Auto 0.1 0.0 - 0.4 X10*3/uL [facility] Basophils Absolute Auto 0.1 0.0 - 0.2 X10*3/uL [facility] NRBC Abs Auto 0.000 0.0 - 0.012 X10*3/uL [facility] Blood Venous blood specimen / Unknown 02/04/2025 3:02 PM EDT 02/04/2025 4:20 PM EDT us Constance Poole MD LAB BLOOD ORDERABLES Final Result [facility] [address] [place] [address] [phone] * RPR (Monitor) with Reflex to??Titer (02/04/2025 3:02 PM EDT) RPR (Monitor) w/Refl Titer NON-REACTI VE NON-REACT [facility] Comment:THIS TEST WAS PERFOR MED AT:[email or web address] [place] [phone] MEADOWS MD Rapid Plasma Reagin Ab Titer TNP [facility] Blood Venous blood specimen / Unknown 02/04/2025 3:02 PM EDT 02/04/2025 4:20 PM EDT Constance Poole MD LAB BLOOD ORDERABLES Final Result Performing Organization Address [facility] Co de Phone Number [facility] [address] [place] [phone] * (ABNORMAL) Hemoglobin A1c (02/04/2025 3:02 PM EDT) Hemoglobin A1c 7.1(H) <6.0 % [facility] Comment:Hemoglobin A1C Refer ence Range Adults: 4.8 - 6.0 % Non diabetic: < 6.0 % Goal: < 7.0 %Additional Action Suggested: > 8.0 %Note: Hemoglobin A1c results are invalid for patients with abnormal amounts of HbF. Blood transfusions may impact the HbA1c concentration in the patient sample. Estimated Average Glucose 157 mg/dL [facility] Comment:eAG = Estimated ave rage glucose which is %A1C expressed asaverage glucose, using the formula of the [id number] Glucose study (ADAG), Diabetes Care, Vol.31,#8,Jun. 2007 Blood Venous blood specimen / Unknown 02/04/2025 3:02 PM EDT 02/04/2025 4:20 PM EDT Constance Poole MD LAB BLOOD ORDERABLES Final Result Performing Organization Address [facility] Co de Phone Number [facility] [address] [place] [phone] * (ABNORMAL) Comprehensive Metabolic Panel (02/04/2025 3:02 PM EDT) Only the most recent of2 resultswithin the time period is included. Sodium 142 135 - 145 mmol/L [facility] Potassium 4.0 3.3 - 5.1 mmol/L [facility] Chloride 104 96 - 108 mmol/L [facility] Carbon Dioxide 29 22 - 29 mmol/L [facility] Anion Gap 13 12 - 20 [facility] Urea Nitrogen (BUN) 8(L) 9 - 16 mg/dL [facility] Creatinine, Serum 0.87 0.5 - 1.4 mg/dL [facility] Estimated Glomerular Filt Rate >60 [facility] Comment:Chronic Kidney Disea se: Estimated GFR < 60 mL/min/1.49z5Eiljke Kidney Disease: Estimated GFR < 15 mL/min/1.73m2 Glucose 106 60 - 115 mg/dL [facility] Calcium 9.1 8.4 - 10.2 mg/dL [facility] Bilirubin, Total 0.5 0.0 - 1.0 mg/dL [facility] Aspartate Amino Transferase 26 5 - 37 U/L [facility] Alanine Aminotransferase 21 0 - 40 U/L [facility] Total Protein 7.7 6.5 - 8.0 g/dL [facility] Albumin Level 4.0 3.5 - 5.0 g/dL [facility] Alkaline Phosphatase 68 39 - 117 U/L [facility] Blood Venous blood specimen / Unknown 02/04/2025 3:02 PM EDT 02/04/2025 4:20 PM EDT us Constance Poole MD LAB BLOOD ORDERABLES Final Result [facility] [address] [place] [phone] * Lipid Panel, Standard (12/29/2024 10:54 AM EST) Triglycerides 84 <150 mg/dL [facility] Comment:Desirable Triglyceri de: less than 150 mg/dLBorderline High Triglyceride 150-199 mg/dLHigh Triglyceride: 200-499 mg/dLVery High Triglyceride: greater than or equal to 5OO mg/dL Cholesterol 131 <200 mg/dL [facility] Comment:Desirable Cholestero l: less than 200 mg/dLBorderline High Cholesterol: 200-239 mg/dLHigh Cholesterol: greater than 239 mg/dL LDL Cholesterol Calculated 58 <100 mg/dL [facility] Comment:Desirable LDL: less than 100 mg/dLNear Optimal/Above Optimal LDL: 110- 129 mg/dLBorderline High LDL: 130-159 mg/dLHigh LDL: 160-189 mg/dLVery High LDL: greater than or equal to 190 mg/dL HDL Cholesterol 57 >40 mg/dL [facility] Comment:Desirable HDL: great er than 40 mg/dL Note: This HDL assay may give artificially low results in patients with liver disease. Blood Venous blood specimen / Unknown 12/29/2024 10:54 AM EST 12/29/2024 12:59 PM EST Colton De Leon MD LAB BLOOD ORDERABLES Final Result [facility] [address] [place] [phone] * HEPATITIS C AB W/REFL TO HCV RNA, QN, PCR (04/19/2022 8:52 AM EDT) HEPATITIS C ANTIBODY NON-REACT [facility] NON-REACT [facility] INDEX 0.02 <1.00 [facility] Comment: ?? HCV antibody was non-reactive. There is no laboratory ?? evidence of HCV infection. ?? In most cases, no further action is required. However, if recent HCV exposure is suspected, a test for HCV RNA (test code 77795) is suggested. ?? For additional information please refer to http://education.FounderFuel/faq/CFV35s4 (This link is being provided for informational/ educational purposes only.) ?? 04/19/2022 8:52 AM EDT Colton De Leon MD HISTORICAL/NON ORDERA BLE LABS Final Result [facility] [address] [place] [address], * Colonoscopy (08/18/2020) Colonoscopy Normal Normal 08/18/2020 Narrative Jacquelin Chiu - 08/18/2020 9:26 AM EDT Recommended 10 year follow up us Historical Provider HEALTH MAINTENANCE Final Result from Last 3 Months or Most Recently Relevant to Health Maintenance Insurance [facility] D-SNP) VERONICA GERBER [id number] DENTAL [facility] Advance Directives Documents on File Type Date Recorded Patient Peoplesoft Hcm Consultant Expl anation Advance Directives and Living Will 02/06/2024 8:49 AM Health Care Proxy Care Teams Iron Guardrail Installer Relationship Specialty Start Date End Date Colton Nelson MD [address] [facility] [place] [address] PCP - General Internal Medicine 05/04/20
--- OUTSIDE RECORDS SUMMARY | 2025-03-29 15:58 | XMS_ITS | Encounter Summary ---
Author Organization [employer] Address 75 [facility] 7t [place] [address] Care Team Providers Care Candle Molder Machine Name Role Phone Colton Nelson MD Primary Care Provide r Encounter Details Date Type Department Care Team (Latest Contact Info) Description 12/13/2020 Abstract [facility] CONVERSIONS Dental, Provider, DDS Social History [...] Description 04/13/2025 2:00 PM EDT Office Visit [facility] ADULT DENTAL [address] [place] [address] Bennett Yung, KAELA 230 [place] [address] 04/14/2025 3:15 PM EDT Office Visit [facility] MEDICINE [address] [place] [address] Colton Nelson MD 230 [place] [address] 05/30/2025 2:00 PM EDT Telemedicine [facility] CHC MED & PEDS 505 [place], [place] [phone] Maria Isabel Elam, ELEAZAR 505 [place] [address] documented as of this encounter Visit Diagnoses Not on filedocumented in this encounter Care Teams Candle Molder Machine Relationship Specialty Start Date End Date Colton Nelson MD [address] [place] [address] [place] [address] PCP - General Internal Medicine 05/04/20 documented as of this encounter
--- OUTSIDE RECORDS SUMMARY | 2025-03-29 15:58 | XMS_ITS | Encounter Summary ---
Author Organization [employer] Address 75 [facility] 7t [place] [address] Care Team Providers Care Senior Business Development Manager Name Role Phone Colton Nelson MD Primary Care Provide r Reason for Visit * Reason Comments Med Refill Encounter Details Date Type Department Care Team ([facility] Contact Info) Description 04/16/2024 Refill [facility] MEDICINE 230 [place], [place] [phone] Constance Wiggins MD 230 [place], [place] [phone] Chronic obstructive pulmonary disease, unspecified COPD type [...] Description 04/13/2025 2:00 PM EDT Office Visit [facility] ADULT DENTAL 230 [place] [address] Bennett Yung, KAELA 230 [place] [address] 04/14/2025 3:15 PM EDT Office Visit [facility] MEDICINE 230 [place] [address] Colton Nelson MD 230 [place] [address] 05/30/2025 2:00 PM EDT Telemedicine [facility] CHC MED & PEDS 505 [place], [place] [phone] Maria Isabel Elam, RN 505 [place], [place] [phone] documented as of this encounter Visit Diagnoses Diagnosis Chronic obstructive pulmonary disease, unspecified COPD type (CMS/HCC) documented in this encounter Additional Health Concerns Assessment Noted Time PHQ-9 Depression Total Score: 0 12/17/19 23 10:18 AM EST documented as of this encounter Care Teams Senior Business Development Manager Relationship Specialty Start Date End Date Colton Nelson MD [address] [place] [address] PCP - General Internal Medicine 05/04/20 documented as of this encounter
--- OUTSIDE RECORDS SUMMARY | 2025-03-29 15:58 | XMS_ITS ---
Author Name Rashawn LYON, Mr. Maureen Antunez Address [address] [place] [address] Phone [phone] [facility] Care Team Providers Care Gold Beater Name Role Phone Alan Morocho Unavailable [phone] Reason for Referral Not Available Allergies, adverse [...] Pain Assessment - NO pain present (1126F) [facility] [place] Pain Assessment - NO pain present (1126F) [facility] [place] Pain Assessment - NO pain present (1126F) [facility] Pain Assessment - NO pain present (1126F[place] [facility] [place] Pain Assessment - NO pain present (1126F[place] [facility] [place] Pain Assessment - NO pain present (1126F[place] [facility] [place] Pain Assessment - NO pain present (1126F) [facility] [place] Type 2 diabetes w diabetic peripheral angiopath w/o gangreneType 2 diabetes mellitus with other specified complicationHyperlipidemia, unspecifiedEssential (primary) hypertensionChronic obstructive pulmonary disease, unspecifiedVitamin D deficiency, unspecifiedGastro-esophageal reflux disease without esophagitisMale erectile dysfunction, unspecifiedRestless legs syndrome Pain Assessment - NO pain present (1126F) [facility] [place] Pain Assessment - NO pain present (1126F) [facility] [place] Vital Signs Date of Collection Vitals 2022-09-23 13:16:02 Height - 162.56 cmWe ight - 78.02 kgBody Mass Index (BMI) - 29.52 kg/m2BP Diastolic - 88.0 mm[Hg]BP Systolic - 168.0 mm[Hg]Heart Rate - 62.0 /min Social History Social History Social History Observation Description Effec tive Time Current Smoking Status Former smoker 6 Sex Male History of Procedures Procedures [...] (do not use for phone, instead use [id number]) [id number] 2022-09-23 No Data Available No Data Availa [...] completed by a nacho and video using PlayEnable Tablet. Introductory visit with [employer] to establish care. Today, patient has chief complaint of: establishing care.Reviewed Allergies, Medications, Active Medical conditions, past medical/surgical history, Social history. 2022-09-23 Most recent hospital stay(s) or ER visit(s) and precipitating factors: Denies recent ER/hospital visit 2022-09-23 Advance care planbenita blandon discussion. Conversation today with: member; Advance Care PlanDo you have an Advance Care Plan? NoDo you have a Durable Power of Microbiology Quality Control Technician for Healthcare, or Healthcare Proxy? NoIf so, Who?Code Status: UnknownOther Details of discussion (Who was present, patients description of wishes/goals):
--- OUTSIDE RECORDS SUMMARY | 2025-03-29 15:58 | XMS_ITS | Encounter Summary ---
Author Organization [employer] Address [address] [place] [address] [place] [address] Care Team Providers Care Director On Air Name Role Phone Colton Nelson MD Primary Care Provide r Reason for Visit * Reason Comments Med Refill Encounter Details Date Type Department Care Team (Late st Contact Info) Description 03/27/2023 Refill [facility] MEDICINE [address] [place] [address] Roxi Scott FNP [address] [place] [address] Dept of Internal Medicine [place] [phone] Social History Tobacco Use Types Packs/Day Years [...] Description 04/13/2025 2:00 PM EDT Office Visit [facility] ADULT DENTAL 230 [place], [place] [phone] Bennett Yung, KAELA 230 [place], [place] [phone] 04/14/2025 3:15 PM EDT Office Visit [facility] MEDICINE [address] [place] [address] [phone] Colton Nelson MD 230 [place] [address] 05/30/2025 2:00 PM EDT Telemedicine [facility] CHC MED & PEDS 505 [place] [address] Maria Isabel Elam, RN 505 [place] [address] documented as of this encounter Visit Diagnoses Not on filedocumented in this encounter Additional Health Concerns Assessment Noted Time PHQ-9 Depression Total Score: 0 12/17/19 23 10:18 AM EST documented as of this encounter Care Teams Director On Air Relationship Specialty Start Date End Date Colton Nelson MD 230 [place] [address] PCP - General Internal Medicine 05/04/20 documented as of this encounter
--- OUTSIDE RECORDS SUMMARY | 2025-03-29 15:58 | XMS_ITS | Encounter Summary ---
Author Organization [employer] Address 75 [facility] 7t [place] [address] Care Team Providers Care Technical Business Systems Analyst Name Role Phone Colton Nelson MD Primary Care Provide r Reason for Visit * Reason Onset Date Comments Call Back Request 05/13/2024 Encounter Details Date Type Department Care Team ([facility] st Contact Info) Description 05/13/2024 Telephone [facility] MEDICINE 230 [place], [place] [phone] Colton Nelson MD 230 [place] [address] Call Back Request Social History Tobacco Use [...] from pt requesting a call back with doweler, stated think he needs an appt but not sure about it. documented in this encounter Plan of Treatment Upcoming Encounters Date Type Department Care Team (Late st Contact Info) Description 04/13/2025 2:00 PM EDT Office Visit [facility] ADULT DENTAL 230 [place] [address] Bennett Yung, KAELA 230 [place] [address] 04/14/2025 3:15 PM EDT Office Visit [facility] MEDICINE 230 [place] [address] Colton Nelson MD 230 [place] [address] 05/30/2025 2:00 PM EDT Telemedicine [facility] CHC MED & PEDS 505 [place] [address] Maria Isabel Elam, ELEAZAR 505 [place] [address] documented as of this encounter Visit Diagnoses Not on filedocumented in this encounter Additional Health Concerns Assessment Noted Time PHQ-9 Depression Total Score: 0 05/11/20 24 1:30 PM EDT documented as of this encounter Care Teams Technical Business Systems Analyst Relationship Specialty Start Date End Date Colton Nelson MD 230 [place] [address] PCP - General Internal Medicine 05/04/20 documented as of this encounter
--- OUTSIDE RECORDS SUMMARY | 2025-03-29 15:58 | XMS_ITS | Encounter Summary ---
Author Organization [employer] Address 75 [facility] 7t [place] [address] Care Team Providers Care Manager Training Name Role Phone Colton Nelson MD Primary Care Provide r Reason for Visit * Reason Comments Med Refill Encounter Details Date Type Department Care Team ([facility] st Contact Info) Description 04/21/2024 Refill [facility] MEDICINE 230 [place], [place] [phone] Constance Wiggins MD 230 [place], [place] [phone] Chronic obstructive pulmonary disease, unspecified COPD type [...] Description 04/13/2025 2:00 PM EDT Office Visit [facility] ADULT DENTAL 230 [place] [address] Bennett Yung, KAELA 230 [place] [address] 04/14/2025 3:15 PM EDT Office Visit [facility] MEDICINE 230 [place] [address] Colton Nelson MD 230 [place] [address] 05/30/2025 2:00 PM EDT Telemedicine [facility] CHC MED & PEDS 505 [place], [place] [phone] Maria Isabel Elam, RN 505 [place], [place] [phone] documented as of this encounter Visit Diagnoses Diagnosis Chronic obstructive pulmonary disease, unspecified COPD type (CMS/HCC) documented in this encounter Additional Health Concerns Assessment Noted Time PHQ-9 Depression Total Score: 0 12/17/19 23 10:18 AM EST documented as of this encounter Care Teams Manager Training Relationship Specialty Start Date End Date Colton Nelson MD [address] [place] [address] PCP - General Internal Medicine 05/04/20 documented as of this encounter
--- OUTSIDE RECORDS SUMMARY | 2025-03-29 15:58 | XMS_ITS | Encounter Summary ---
Author Organization [employer] Address 75 [facility] 7t [place] [address] Care Team Providers Care Game Master Name Role Phone Colton Nelson MD Primary Care Provide r Encounter Details Date Type Department Care Team (Latest Contact Info) Description 12/06/2021 Abstract [facility] CONVERSIONS Dental, Provider, DDS Social [...] 04/13/2025 2:00 PM EDT Office Visit [facility] ADULT DENTAL 230 [place] [address] Bennett Yung, KAELA 230 [place] [address] 04/14/2025 3:15 PM EDT Office Visit [facility] MEDICINE 230 [place] [address] Colton Nelson MD 230 [place] [address] 05/30/2025 2:00 PM EDT Telemedicine [facility] CHC MED & PEDS 505 [place], [place] [phone] Maria Isabel Elam, ELEAZAR 505 [place] [address] documented as of this encounter Visit Diagnoses Not on filedocumented in this encounter Care Teams Game Master Relationship Specialty Start Date End Date Colton Nelson MD [address] [place] [address] [place] [address] PCP - General Internal Medicine 05/04/20 documented as of this encounter
--- OUTSIDE RECORDS SUMMARY | 2025-03-29 15:58 | XMS_ITS | Encounter Summary ---
Author Organization [employer] Address [address] [facility] [address] 7t [place] [address] Care Team Providers Care Mechanical Engineering Manager Name Role Phone Colton Nelson MD Primary Care Provide r Reason for Visit * Reason Comments Med Refill Encounter Details Date Type Department Care Team (Late Contact Info) Description 04/09/2023 Refill [facility] CHC MED & PEDS 505 [place], [place] [phone] Colton Nelson MD 230 [place] [address] Social History Tobacco Use Types Packs/Day Years [...] Department Care Team (Late Contact Info) Description 04/13/2025 2:00 PM EDT Office Visit [facility] ADULT DENTAL 230 [place] [address] Bennett Yung, DMD 230 [place] [address] 04/14/2025 3:15 PM EDT Office Visit [facility] MEDICINE [address] [place] [address] Colton Nelson MD 230 [place], [place] 05/30/2025 2:00 PM EDT Telemedicine [facility] CHC MED & PEDS 505 [place], [place] [phone] Maria Isabel Elam, ELEAZAR 505 [place], [place] documented as of this encounter Visit Diagnoses Not on filedocumented in this encounter Additional Health Concerns Assessment Noted Time PHQ-9 Depression Total Score: 0 12/17/19 23 10:18 AM EST documented as of this encounter Care Teams Mechanical Engineering Manager Relationship Specialty Start Date End Date Colton Nelson MD 230 [place], [place] [phone] PCP - General Internal Medicine 05/04/20 documented as of this encounter
--- OUTSIDE RECORDS SUMMARY | 2025-03-29 15:58 | XMS_ITS | Encounter Summary ---
Author Organization [employer] Address 75 [facility] 7t [place] [address] Care Team Providers Care Corrugator Machine Operator Name Role Phone Colton Nelson MD Primary Care Provide r Encounter Details Date Type Department Care Team (Latest Contact Info) Description 08/09/2019 Abstract [facility] CONVERSIONS Dental, Provider, DDS Social History Tobacco [...] Description 04/13/2025 2:00 PM EDT Office Visit [facility] ADULT DENTAL 230 [place] [address] Bennett Yung DMD 230 [place] [address] 04/14/2025 3:15 PM EDT Office Visit [facility] MEDICINE 230 [place] [address] Colton Nelson MD 230 [place] [address] 05/30/2025 2:00 PM EDT Telemedicine [facility] CHC MED & PEDS 505 [place] [address] Maria Isabel Elam, ELEAZAR 505 [place] [address] documented as of this encounter Visit Diagnoses Not on filedocumented in this encounter Care Teams Corrugator Machine Operator Relationship Specialty Start Date End Date Colton Nelson MD [address] [place] [address] [place] [address] PCP - General Internal Medicine 05/04/20 documented as of this encounter
--- OUTSIDE RECORDS SUMMARY | 2025-03-29 15:58 | XMS_ITS | Encounter Summary ---
Author Organization [employer] Address 75 [facility] 7t [place] [address] Care Team Providers Care Bacon De Rinder Name Role Phone Colton Nelson MD Primary Care Provide r Encounter Details Date Type Department Care Team (Late Contact Info) Description 04/03/2023 Abstract [facility] MEDICINE 230 [place] [address] Colton Nelson MD 230 [place] [address] Social History Tobacco Use Types Packs/Day Years [...] Description 04/13/2025 2:00 PM EDT Office Visit [facility] ADULT DENTAL 230 [place], [place] [phone] Bennett Yung, DMD 230 [place] [address] 04/14/2025 3:15 PM EDT Office Visit [facility] MEDICINE 230 [place] [address] Colton Nelson MD 230 [place], [place] 05/30/2025 2:00 PM EDT Telemedicine [facility] CHC MED & PEDS 505 [place], [place] [phone] Maria Isabel Elam, RN 505 [place], [place] documented as of this encounter Procedures Procedure [...] documented as of this encounter Care Teams Bacon De Rinder Relationship Specialty Start Date End Date Colton Nelson MD 230 [place], [place] [phone] PCP - General Internal Medicine 05/04/20 documented as of this encounter
--- OUTSIDE RECORDS SUMMARY | 2025-03-29 15:58 | XMS_ITS | Encounter Summary ---
Author Organization [employer] Address 75 [facility] 7t [place] [address] Care Team Providers Care Functional Consultant Name Role Phone Colton Nelson MD Primary Care Provide r Reason for Visit * Reason Onset Date Comments Reschedule 02/18/2024 Encounter Details Date Type Department Care Team ([facility] st Contact Info) Description 02/18/2024 Telephone [facility] MEDICINE 230 [place], [place] [phone] Colton Nelson MD 230 [place], [place] [phone] Reschedule Social History Tobacco Use Types Packs/Day [...] Tc from pt requesting to reschedule 02/17 WILDLIFE VETERINARIAN appointment. Please contact pt at [phone] documented in this encounter Plan of Treatment Upcoming Encounters Date Type Department Care Team (Late st Contact Info) Description 04/13/2025 2:00 PM EDT Office Visit [facility] ADULT DENTAL [address] [place] [address] Bennett Yung, DMD 230 [place] [address] 04/14/2025 3:15 PM EDT Office Visit [facility] MEDICINE 230 [place] [address] Colton Nelson MD 230 [place] [address] 05/30/2025 2:00 PM EDT Telemedicine [facility] CHC MED & PEDS 505 [place] [address] Maria Isabel Elam, ELEAZAR 505 [place] [address] documented as of this encounter Visit Diagnoses Not on filedocumented in this encounter Additional Health Concerns Assessment Noted Time PHQ-9 Depression Total Score: 0 12/17/19 10:18 AM EST documented as of this encounter Care Teams Functional Consultant Relationship Specialty Start Date End Date Colton Nelson MD 230 [place] [address] PCP - General Internal Medicine 05/04/20 documented as of this encounter
--- OUTSIDE RECORDS SUMMARY | 2025-03-29 15:58 | XMS_ITS | Encounter Summary ---
Author Organization [employer] Address [address] [facility] [address] 7t [place] [address] Care Team Providers Care Pyroglazer Name Role Phone Colton Nelson MD Primary Care Provide r Reason for Visit * Reason Comments Med Refill Encounter Details Date Type Department Care Team (Late Contact Info) Description 04/17/2023 Refill [facility] CHC MED & PEDS 505 [place], [place] [phone] Colton Nelson MD 230 [place] [address] Social History Tobacco Use Types Packs/Day Years [...] Description 04/13/2025 2:00 PM EDT Office Visit [facility] ADULT DENTAL 230 [place] [address] Bennett Yung, DMD 230 [place] [address] 04/14/2025 3:15 PM EDT Office Visit [facility] MEDICINE 230 [place] [address] Colton Nelson MD 230 [place], [place] 05/30/2025 2:00 PM EDT Telemedicine [facility] CHC MED & PEDS 505 [place], [place] [phone] Maria Isabel Elam, ELEAZAR 505 [place], [place] documented as of this encounter Visit Diagnoses Not on filedocumented in this encounter Additional Health Concerns Assessment Noted Time PHQ-9 Depression Total Score: 0 12/17/19 23 10:18 AM EST documented as of this encounter Care Teams Pyroglazer Relationship Specialty Start Date End Date Colton Nelson MD 230 [place], [place] [phone] PCP - General Internal Medicine 05/04/20 documented as of this encounter
--- OUTSIDE RECORDS SUMMARY | 2025-03-29 15:58 | XMS_ITS | Encounter Summary ---
Author Organization [employer] Address [address] [facility] 7t [place] [address] Care Team Providers Care Team Manager Name Role Phone Colton Nelson MD Primary Care Provide r Reason for Visit * Reason Onset Date Comments Appointment Request 11/18/2024 Encounter Details Date Type Department Care Team ([facility] st Contact Info) Description 11/18/2024 Telephone [facility] MEDICINE 230 [place], [place] [phone] Colton Nelson MD 230 [place], [place] [phone] Appointment Request Social History Tobacco Use Types [...] pt calling requesting call back to reschedule PATIENT SAFETY MANAGER visit. Please contact pt at [phone]. (Vietnamese Speaker) documented in this encounter Plan of Treatment Upcoming Encounters Date Type Department Care Team ([facility] st Contact Info) Description 04/13/2025 2:00 PM EDT Office Visit [facility] ADULT DENTAL 230 [place], [place] [phone] Bennett Yung, KAELA 230 [place] [address] 04/14/2025 3:15 PM EDT Office Visit [facility] MEDICINE 230 [place] [address] Colton Nelosn MD 230 [place] [address] 05/30/2025 2:00 PM EDT Telemedicine [facility] MED & PEDS 505 [place] [address] Maria Isabel Elam, ELEAZAR 505 [place] [address] documented as of this encounter Visit Diagnoses Not on filedocumented in this encounter Additional Health Concerns Assessment Noted Time PHQ-9 Depression Total Score: 0 05/11/20 24 1:30 PM EDT documented as of this encounter Care Teams Team Manager Relationship Specialty Start Date End Date Colton Nelson MD 230 [place] [address] PCP - General Internal Medicine 05/04/20 documented as of this encounter
--- OUTSIDE RECORDS SUMMARY | 2025-03-29 15:58 | XMS_ITS | Encounter Summary ---
Author Organization [employer] Address 75 [facility] 7t [place] [address] Care Team Providers Care Lathe Puller Name Role Phone Colton Nelson MD Primary Care Provide r Reason for Visit * Reason Comments Med Refill Encounter Details Date Type Department Care Team ([facility] Contact Info) Description 06/18/[address] [facility] MEDICINE 230 [place], [place] [phone] Colton Nelson MD 230 [place], [place] [phone] Chronic obstructive pulmonary disease, unspecified COPD type [...] 2:00 PM EDT Office Visit [facility] ADULT DENTAL [address] [place] [address] Bennett Yung, KAELA [address] [place] [address] 04/14/2025 3:15 PM EDT Office Visit [facility] MEDICINE [address] [place] [address] Colton Nelson MD [address] [place] [address] 05/30/2025 2:00 PM EDT Telemedicine [facility] CHC MED & PEDS 505 [place] [address] Maria Isabel Elam, ELEAZAR 505 [place] [address] documented as of this encounter Visit Diagnoses Diagnosis Chronic obstructive pulmonary disease, unspecified COPD type (CMS/HCC) documented in this encounter Additional Health Concerns Assessment Noted Time PHQ-9 Depression Total Score: 0 05/11/20 24 1:30 PM EDT documented as of this encounter Care Teams Lathe Puller Relationship Specialty Start Date End Date Colton Nelson MD [address] [place] [address] PCP - General Internal Medicine 05/04/20 documented as of this encounter
--- OUTSIDE RECORDS SUMMARY | 2025-03-29 15:58 | XMS_ITS | Encounter Summary ---
Author Organization [employer] Address [address] [facility] 7t [place] [address] Care Team Providers Care Delivery Analyst Name Role Phone Colton Nelson MD Primary Care Provide r Reason for Visit * Reason Onset Date Comments Appointment Request 12/23/2023 Encounter Details Date Type Department Care Team ([facility] st Contact Info) Description 12/23/2023 Telephone [facility] MEDICINE [address] [place], [place] [phone] Colton Nelson MD [address] [place], [place] [phone] Appointment Request Social History Tobacco Use Types [...] with pcp 12/18/23. Please contact pt at [phone]. documented in this encounter Plan of Treatment Upcoming Encounters Date Type Department Care Team (Late st Contact Info) Description 04/13/2025 2:00 PM EDT Office Visit [facility] ADULT DENTAL [address] [place] [address] Bennett Yung, KAELA [address] [place] [address] 04/14/2025 3:15 PM EDT Office Visit [facility] MEDICINE [address] [place] [address] Colton Nelson MD [address] [place] [address] 05/30/2025 2:00 PM EDT Telemedicine [facility] CHC MED & PEDS [address] [place] [address] Maria Isabel Elam RN [address] [place] [address] documented as of this encounter Visit Diagnoses Not on filedocumented in this encounter Additional Health Concerns Assessment Noted Time PHQ-9 Depression Total Score: 0 12/17/19 10:18 AM EST documented as of this encounter Care Teams Delivery Analyst Relationship Specialty Start Date End Date Colton Nelson MD [address] [place] [address] PCP - General Internal Medicine 05/04/20 documented as of this encounter
--- OUTSIDE RECORDS SUMMARY | 2025-03-29 15:58 | XMS_ITS | Encounter Summary ---
Author Organization [employer] Address [address] [facility] [address] 7[address] [place] [address] Care Team Providers Care Materials Handling Coordinator Name Role Phone Colton Nelson MD Primary Care Provide r Reason for Visit * Reason Comments Med Refill Encounter Details Date Type Department Care Team ([facility] st Contact Info) Description 05/17/2024 Refill [facility] MEDICINE [address] [place], [place] [phone] Ashley Carrion, ANP [address] [place], [place] [phone] Lumbar disc herniation Social History Tobacco Use [...] Description 04/13/2025 2:00 PM EDT Office Visit [facility] ADULT DENTAL [address] [place] [address] Bennett Ynug, DMD [address] [place] [address] 04/14/2025 3:15 PM EDT Office Visit [facility] MEDICINE [address] [place] [address] Colton Nelson MD [address] [place] [address] 05/30/2025 2:00 PM EDT Telemedicine [facility] CHC MED & PEDS [address] [place] [address] Maria Isabel Elam, RN [address] [place] [address] documented as of this encounter Visit Diagnoses Diagnosis Lumbar disc herniation Displacement of lumbar intervertebral disc without myelopathy documented in this encounter Additional Health Concerns Assessment Noted Time PHQ-9 Depression Total Score: 0 05/11/20 24 1:30 PM EDT documented as of this encounter Care Teams Materials Handling Coordinator Relationship Specialty Start Date End Date Colton Nelson MD [address] [place] [id number] PCP - General Internal Medicine 05/04/20 documented as of this encounter
== END 2025-03-29 15:02 | disposition home or self-care (01) ==
PROVIDERS: PCP Internal Medicine; Visit Provider Urology
DX: E29.1 Testicular hypofunction (principal); N52.01 Erectile dysfunction due to arterial insufficiency
CPT/HCPCS: 99213

== ENCOUNTER → 2025-03-29 14:46 | Outpatient (BNVA) | payer OTHER, SELFPAY | PROVIDERS: PCP Internal Medicine; Visit Provider Urology | DX: E29.1 Testicular hypofunction (principal); N52.01 Erectile dysfunction due to arterial insufficiency | CPT/HCPCS: 99212 ==

== ENCOUNTER 2025-04-21 15:50 | Outpatient (REF) | payer OTHER, SELFPAY ==
--- NOTE | ~2025-04-21 | XR_ITS ---
CLINICAL HISTORY: right shoulder pain 4 view right shoulder Comparison: None Findings: Bones intact. No dislocations. No significant arthritic change. No erosions. No radiopaque foreign body. IMPRESSION: 1. No acute findings This document has been electronically signed by: Azar Swift MD on 04/23/2025 09:32:00
--- OUTSIDE RECORDS SUMMARY | 2025-04-21 15:55 | XMS_ITS | Encounter Summary ---
Author Organization [employer] Address [address] [facility] [address] 7[address] [place] [address] Care Team Providers Care Electronics Hardware Design Engineer Name Role Phone Colton Nelson MD Primary Care Provide r Encounter Details Date Type Department Care Team (Late st Contact Info) Description 11/13/2023 Abstract [facility] ADULT DENTAL [address] [place] [address] Xavier Kangaris [address] [place] [address] Social History Tobacco Use Types Packs/Day Years [...] Care Team (Late st Contact Info) Description 05/11/2025 11:00 AM EDT Office Visit [facility] ADULT DENTAL [address] [place] [address] Bennett Yung, DMD [address] [place] [address] 05/30/2025 2:00 PM EDT Telemedicine [facility] CHC MED & PEDS [address] [place] [address] Maria Isabel Elam, RN [address] [place] [address] 07/21/2025 3:00 PM EDT Office Visit [facility] MEDICINE [address] [place] [address] Colton Nelson MD [address] [place] [address] 10/28/2025 10:00 AM EST Office Visit [facility] ADULT DENTAL [address] [place] [address] Brielle Kang [address] [place] [address] documented as of this encounter Visit Diagnoses Not on filedocumented in this encounter Additional Health Concerns Assessment Noted Time PHQ-9 Depression Total Score: 0 12/17/19 23 10:18 AM EST documented as of this encounter Care Teams Electronics Hardware Design Engineer Relationship Specialty Start Date End Date Colton Nelson MD [address] [place] [address] PCP - General Internal Medicine 05/04/20 documented as of this encounter
== END 2025-04-21 15:51 | disposition home or self-care (01) ==
LOC: HO.XRAY 15:50
PROVIDERS: PCP Internal Medicine; Visit Provider Internal Medicine
DX: M25.511 Pain in right shoulder (principal)
CPT/HCPCS: 73030

== ENCOUNTER → 2025-04-21 16:14 | Outpatient (BNV) | payer OTHER, SELFPAY | PROVIDERS: PCP Internal Medicine; Visit Provider Specialist | DX: M25.511 Pain in right shoulder (principal) | CPT/HCPCS: 73030 ==

== ENCOUNTER 2025-05-18 13:09 | Outpatient (RCR) | payer OTHER, SELFPAY | END 2025-05-24 13:06 | disposition home or self-care (01) | LOC: HO.PT 13:09 | PROVIDERS: PCP Internal Medicine; Visit Provider Internal Medicine | DX: M25.511 Pain in right shoulder (principal) | CPT/HCPCS: 97110; 97162 ==

== ENCOUNTER 2025-05-23 13:06 | Outpatient (AMB) | payer OTHER, SELFPAY ==
--- NOTE | 2025-05-23 13:00 | A.OFFVIS_ITS ---
Vital Signs 3 05/23/25 13:03 Height 5 ft 4 in Weight 180 lb 12.465 oz BMI 31.0 BP 152/71 H Blood Pressure Location Rt brachial Position Sitting Pulse 80 Pulse Source Pulse Oximeter Temp 98.1 F Temp Source Temporal Artery Scan Pulse Oximetry (%) 96 Oxygen Delivery Method Room Air Intake Visit Reasons: sebaceous cyst on back Intake Note: Pt presents to the office today for a sebaceous cyst on back. c/o:occasional pain and discomfort. Allergies hydrochlorothiazide Allergy (Unknown, Verified 05/23/25 13:00) unknown lisinopril Allergy (Unknown, Verified 05/23/25 13:00) unknown olmesartan Allergy (Unknown, Verified 05/23/25 13:00) unknown venom-honey bee Allergy (Unknown, Verified 05/23/25 13:00) unknown Medication List - Last Reconciled 05/23/25 by Lambert Rojas MD acetaminophen 325 mg PO QID PRN albuterol sulfate 90 mcg/actuation (Ventolin HFA) 2 puffs PO Q4-6H PRN 30 days amlodipine 10 mg PO QAM celecoxib (Celebrex) 200 mg PO DAILY chlorthalidone 12.5 mg PO QAM cholecalciferol (vitamin D3) 50 mcg PO QAM diclofenac sodium 1% 2 grams topical QID fluticasone propion-salmeterol 115-21 mcg/actuation 2 puffs inhalation BID 30 days fluticasone propionate 50 mcg/actuation 2 sprays intranasal DAILY PRN glipizide ER 2.5 mg PO DAILY ipratropium-albuterol 0.5 mg-3 mg(2.5 mg base)/3 mL 3 mL inhalation Q6H PRN 30 days ketotifen fumarate 0.025%(0.035%) 1 drp ophthalmic (eye) BID leg brace (Knee Support Brace) knee support genumed [id number] leg brace (Knee Support Brace) Please reprint genumed rx leg brace (Knee Support Brace) knee support genumed [id number] levocetirizine 5 mg PO BEDTIME melatonin 10 mg PO BEDTIME metformin 1,000 mg PO BID montelukast 10 mg PO DAILY omeprazole 20 mg PO QAM oxycodone-acetaminophen 5-325 mg 1 tab PO QID PRN ropinirole 4 mg PO BEDTIME simvastatin 10 mg PO BEDTIME HPI Comments Details: 72-year-old male patient presenting for evaluation of a epidermal inclusion cyst of the back. This has been present for many years and has gradually increased over time. His was previously able to express discharge from the cyst with pressure however this has no longer possible. Denies any associated pain or discharge, including bleeding or pus. He denies any previous surgery in this location. He is requesting excision of this persistent cyst. [facility] Medical History Allergic rhinitis RLS (restless legs syndrome) COPD (chronic obstructive pulmonary disease) ALLY on CPAP Obesity (BMI 30-39.9) RLS (restless legs syndrome) GERD (gastroesophageal reflux disease) COPD (chronic obstructive pulmonary disease) Carpal tunnel syndrome Lumbar disc herniation Back pain Syncope Arthritis Arrhythmia Asthma DMII (diabetes mellitus, type 2) HTN (hypertension) Surgical History History of cervical spinal surgery History of lumbosacral spine surgery History of cholecystectomy Family History Father Stroke Social History Household Members: Spouse Housing: Apartment Do you presently have visiting nurse or other home services: No (CHIEF NURSE [employer]ESTHET[employer] services at home 2x week) Alcohol intake: current Alcohol intake frequency: holidays/special occasions only Patient Tobacco Use Status: Former Tobacco user Tobacco use type: Cigarette e-Cigarette/Vaping Use: Former Use Current occupational status: retired Current occupation: rt handed Review of Systems Const All systems reviewed & are unremarkable except as noted in HPI and below Physical Exam Vital Signs: Last Vital Signs Temp 98.1 F 05/23/25 13:03 Pulse 80 05/23/25 13:03 BP 152/71 H 05/23/25 13:03 Pulse Ox 96 05/23/25 13:03 Oxygen Delivery Method Room Air 05/23/25 13:03 BMI result Body Mass Index 31.0 Const General: cooperative and no acute distress Nutritional Appearance: well nourished Orientation/consciousness: patient oriented x3 Limitations: no limitations HEENT Head: Yes normocephalic and Yes atraumatic Ears: hearing grossly normal bilaterally Resp Effort & Inspection: normal respiratory effort, no audible wheezes, no cough and no respiratory distress Cardio Jugular venous distension: no JVD GI Inspection: Yes normal to inspection Back/Spine/Pelvis Other: 1 cm sebaceous cyst of the left upper back without erythema or discharge. A smaller 0.5 cm sebaceous cyst is noted in the right upper back which is also noninfected. Back/spine/pelvis image: 2 1. 1 cm noninfected sebaceous cyst 2. 0.5 cm noninfected sebaceous cyst (not symptomatic at this time) Skin Other: Warm, dry, no rash Neuro General: patient oriented x3 Extrem General: Yes no clubbing, cyanosis or edema Assessment & Plan Assessment & Plan (1) Sebaceous cyst: Code(s): L72.3 - Sebaceous cyst Category: Medical Plan 80-year-old male patient presenting with a gradually enlarging sebaceous cyst of the back. He has requested excision of this cyst and after discussion of the procedure, risks, and alternatives, he consents to the surgery. This will be scheduled as a office procedure under local anesthesia. Coding Level of Care Code New Pt Level 4 (15231) Diagnoses Sebaceous cyst L72.3
[2025-05-23 13:03] VITALS: BP 152/71; PULSE 80; TEMP 36.7; O2SAT 96; BMI 31.0
--- OUTSIDE RECORDS SUMMARY | 2025-05-23 13:33 | XMS_ITS | Patient Health Record ---
Author Organization [facility] Address [address] [place] [address] Care Team Providers Care Handkerchief Sample Clerk Name Role Phone Kalyani De Leon MD, Colton Primary Care Provide r Mickey Quintero Jr Unavailable Allergies Allergen (clinical drug ingredient) Drug/Non Drug Allergy documented on EMR Reaction Allergy Type Onset Date Status Bees (uncoded) Unknown Allergy Activ e Reason For Referral No Information Medications Medication SIG (Take, Route, Frequency, Duration) Notes Start Date End Date Status amLODIPine Besylate Active Losartan Potassium A ctive glipiZIDE XL Active SM Aspirin Adult Low Strength Active metFORMIN HCl Active Montelukast Sodium A ctive Omeprazole Active Simvastatin Active Gabapentin Active Vitamin D Orally Once a day Ac tive MiraLax (colon prep) 8.3 ounce ((238) grams mixed with Gatorade or Crystal Light orally begin at 5:00 p.m. the day before the procedure for 1 day 06/22/2020 Active Flovent HFA Active oxyCODONE-Acetaminophen Active Viagra Active Testosterone Cypionate Active Levocetirizine Dihydrochloride Active Albuterol Sulfate HFA Active rOPINIRole HCl Activ e Ipratropium-Albuterol Active Immunizations Vaccine Route Administration Date Status Comme nts Influenza Unknown 08/24/2019 Administered Social History Tobacco Use: Social History Observation Description Date Details (start date - stop date) Former Smoker NA - NA Tobacco Use/Smoking Question Answer Notes Patient is a former smoker When did you start smoking? 14 years old When did you stop smoking? 1988 How long has it been since you last smoked? > 10 years Additional Findings: Tobacco Non-User Ex-cigaret te smoker Alcohol Screen Question Answer Notes Did you have a drink contain ing alcohol in the past year? Yes How often did you have a dri nk containing alcohol in the past year? 2 to 4 times a month (2 points) How many drinks did you have on a typical day when you were drinking in the past year? 1 or 2 drinks (0 point) How often did you have 6 or more drinks on one occasion in the past year? Less than monthly (1 point) Points 3 Interpretation Negative Section Notes: Drinks beers on the weekend, Rum/Whiskey every now and then (ocassionally) Problems Problem Type SNOMED Code ICD Code Onset Dates Problem Status W/U Status Risk Notes Problem 093214853 Colon cancer screening (Z12.11) Active confirmed Problem 745233153 Long-term use of aspirin therapy (Z79.82) Active confirmed Problem [id number] group home (current) use of oral hypoglycemic drugs (Z79.84) Active confirmed Plan Of Treatment Future Test Test Name Order Date COLONOSCOPY 06/22/2020 Insurance Providers Payer Name Payer Address Payer Phone Subscriber Number Group Number Insured Name Patient Relationship to Insured Coverage Start Date Coverage End Date [facility] [address] [address] [place] [address] [phone] [id number] TANIA SALMERON Self - patient is the insured Medical (General) History Medical History History ICD Code hypertension type II diabetes asthma Arthritis back pain cirrhosis elevated cholesterol restless leg syndrome COPD ALLY/CPAP Surgical History Surgery Date(Month/Year) Pinched Nerve Back of Head cholecystectomy
--- OUTSIDE RECORDS SUMMARY | 2025-05-23 13:33 | XMS_ITS | Encounter Summary ---
Author Organization [employer] Address [address] [facility] [address] [place] [address] Care Team Providers Care Crime Investigator Special Agent Name Role Phone Colton Nelson MD Primary Care Provide r Encounter Details Date Type Department Care Team (Late st Contact Info) Description 11/13/2023 Abstract [facility] ADULT DENTAL [address] [place] [address] Xavier Kangaris [address] [place] [address] Social History Tobacco Use Types Packs/Day Years Used Date Smoking Tobacco: Former Passive Smoke Exposure: Never Smokeless Tobacco: Never Alcohol Use Standard Drinks/Week Comments Defer 0 (1 standard drink = 0.6 oz pur e alcohol) Depression Answer Date Recorded Patient Health Questionnaire-9 Score 0 12/17/2022 Housing Stability Answer Date Recorded What is your housing situation today? I have cedrichema elhman 09/08/[address] you li [...] Care Team (Late st Contact Info) Description 05/30/2025 2:00 PM EDT Telemedicine [facility] CHC MED & PEDS [address] [place] [address] Maria Isabel Elam, ELEAZAR [address] [place] [address] 07/21/2025 3:00 PM EDT Office Visit [facility] MEDICINE [address] [place] [address] Colton Nelson MD [address] [place] [address] 10/28/2025 10:00 AM EST Office Visit [facility] ADULT DENTAL [address] [place] [address] Pearl, Brielle [address] [place] [address] documented as of this encounter Visit Diagnoses Not on filedocumented in this encounter Additional Health Concerns Assessment Noted Time PHQ-9 Depression Total Score: 0 12/17/19 23 10:18 AM EST documented as of this encounter Care Teams Crime Investigator Special Agent Relationship Specialty Start Date End Date Colton Nelson MD [address] [place] [id number] PCP - General Internal Medicine 05/04/20 documented as of this encounter
--- OUTSIDE RECORDS SUMMARY | 2025-05-23 13:33 | XMS_ITS ---
Author Name Rashawn LYON, Mr. Maureen Antunez Address [address] [place] [address] Phone [phone] [facility] Care Team Providers Care Retail Director Name Role Phone Alan Morocho Unavailable [phone] Reason for Referral Not Available Allergies, adverse [...] List Problem Status Onset Date Resolved Date Synopsis HTN (hypertension) Active 2022-09-25 N/A Follow ed by PCPAvoid foods high in saltContinue w/ exercise regimenContinue taking Amlodipine, Chlorthalidone GERD (gastroesophageal reflux disease) Active 2022-09-25 N/A Followed by PCPA void spicy foods and other irritantsContinue taking omeprazole as prescribed Restless leg syndrome Active 2022-09-25 N/A Con tinue taking rOpinirole as prescribed COPD (chronic obstructive pulmonary disease) Active 2022-09-25 N/A Managed by COLE Rainey Flovent daily, Ipratropium, has Albuterol PRN Erectile dysfunction Active 2022-09-25 N/A on V iagra and Testosterone injection Vitamin D deficiency Active 2022-09-25 N/A on r eplacement Hyperlipidemia associated with type 2 diabetes mellitus Active 2022-09-25 N/A Avoid foods high in sugar and carbsContinue w/ exercise regimenContinue glyburide and Metforminon statin and ARB*inquire about A1c* Encounters Encounters Type Facility Date of Service Diagnosis/Co mplaint Pain Assessment - NO pain present (1126F) [facility] [place]20[place] Pain Assessment - NO pain present (1126F) [facility] [place] Pain Assessment - NO pain present (1126F) [facility] [place] Pain Assessment - NO pain present (1126F) [facility] [place] Pain Assessment - NO pain present (1126F) [facility] [place] Pain Assessment - NO pain present (1126F) [facility] [place]20[place] Pain Assessment - NO pain present (1126F) [facility] [place]20[place] Type 2 diabetes w diabetic peripheral angiopath w/o gangreneType 2 diabetes mellitus with other specified complicationHyperlipidemia, unspecifiedEssential (primary) hypertensionChronic obstructive pulmonary disease, unspecifiedVitamin D deficiency, unspecifiedGastro-esophageal reflux disease without esophagitisMale erectile dysfunction, unspecifiedRestless legs syndrome Pain Assessment - NO pain present (1126F) [facility] [place] 09[place]/2022 Pain Assessment - NO pain present (1126F) [facility] [place]20[place] Vital Signs Date of Collection Vitals 2022-09-23 13:16:02 Height - 162.56 cmWe ight - 78.02 kgBody Mass Index (BMI) - 29.52 kg/m2BP Diastolic - 88.0 mm[Hg]BP Systolic - 168.0 mm[Hg]Heart Rate - 62.0 /min Social History Social History Social History Observation Description Effec tive Time Current Smoking Status Former smoker 3 0 Sex Male History of Procedures Procedures Service [...] (do not use for phone, instead use 06464-14) [id number] 2022-09-23 No Data Available No Data Availa [...] completed by a nacho and video using [employer] Tablet. Introductory visit with [employer] to establish care. Today, patient has chief complaint of: establishing care.Reviewed Allergies, Medications, Active Medical conditions, past medical/surgical history, Social history. 2022-09-23 Most recent hospital stay(s) or ER visit(s) and precipitating factors: Denies recent ER/hospital visit 2022-09-23 Advance care planbenita blandon discussion. Conversation today with: member; Advance Care PlanDo you have an Advance Care Plan? NoDo you have a Durable Power of Vp Public Relations for Healthcare, or Healthcare Proxy? NoIf so, Who?Code Status: UnknownOther Details of discussion (Who was present, patients description of wishes/goals):
== END 2025-05-23 13:18 | disposition home or self-care (01) ==
LOC: HO.HGS 13:06
PROVIDERS: PCP Internal Medicine; Visit Provider Surgery
DX: L72.3 Sebaceous cyst (principal)
CPT/HCPCS: 99204

== ENCOUNTER → 2025-05-23 13:06 | Outpatient (BNVA) | payer OTHER, SELFPAY | PROVIDERS: PCP Internal Medicine; Visit Provider Surgery | DX: L72.3 Sebaceous cyst (principal) | CPT/HCPCS: 99202 ==

== ENCOUNTER 2025-06-09 13:47 | Outpatient (AMB) | payer OTHER, SELFPAY ==
[2025-06-09 14:00] VITALS: BP 145/77; PULSE 67; O2SAT 95; BMI 31.8
--- NOTE | 2025-06-09 14:00 | A.OFFVIS_ITS ---
Vital Signs 06/09/25 14:00 Height 5 ft 4 in Weight 185 lb 3.013 oz BMI 31.8 BP 145/77 H Blood Pressure Location Lt brachial Position Sitting Pulse 67 Pulse Source Pulse Oximeter Pulse Oximetry (%) 95 Oxygen Delivery Method Room Air Intake Visit Reasons: Asthma Intake Note: pt is here for follow up and states breathing is not too good, it started about 2 weeks ago. Allergies hydrochlorothiazide Allergy (Unknown, Verified 06/09/25 14:12) unknown lisinopril Allergy (Unknown, Verified 06/09/25 14:12) unknown olmesartan Allergy (Unknown, Verified 06/09/25 14:12) unknown venom-honey bee Allergy (Unknown, Verified 06/09/25 14:12) unknown Medication List - Last Reconciled 06/09/25 by Celestina Denney MD acetaminophen 325 mg PO QID PRN albuterol sulfate 90 mcg/actuation (Ventolin HFA) 2 puffs PO Q4-6H PRN 30 days amlodipine 10 mg PO QAM celecoxib (Celebrex) 200 mg PO DAILY chlorthalidone 12.5 mg PO QAM cholecalciferol (vitamin D3) 50 mcg PO QAM diclofenac sodium 1% 2 grams topical QID fluticasone propion-salmeterol 115-21 mcg/actuation 2 puffs inhalation BID 30 days fluticasone propionate 50 mcg/actuation 2 sprays intranasal DAILY PRN glipizide ER 2.5 mg PO DAILY ipratropium-albuterol 0.5 mg-3 mg(2.5 mg base)/3 mL 3 mL inhalation Q6H PRN 30 days ketotifen fumarate 0.025%(0.035%) 1 drp ophthalmic (eye) BID leg brace (Knee Support Brace) knee support genumed [id number] leg brace (Knee Support Brace) Please reprint genumed rx leg brace (Knee Support Brace) knee support genumed [id number] levocetirizine 5 mg PO BEDTIME melatonin 10 mg PO BEDTIME metformin 1,000 mg PO BID montelukast 10 mg PO DAILY omeprazole 20 mg PO QAM oxycodone-acetaminophen 5-325 mg 1 tab PO QID PRN ropinirole 4 mg PO BEDTIME simvastatin 10 mg PO BEDTIME Do you need a note to return to daycare/school/sports/work: No HPI HPI Asthma: Details: 80 years old very pleasant gentleman is here for follow-up after 4 months. As far as breathing is concerned he is doing okay except that during the hot and humid weather he has increased amount of wheezing at night. He has had no chest infection. His sleep apnea is controlled with CPAP which he uses every night. But missed about 4-5 nights during the past 1 month, seeing that in the hot weather it becomes difficult to keep the mask on. However he uses good and has no residual sleep apnea. [facility] Medical History Allergic rhinitis RLS (restless legs syndrome) COPD (chronic obstructive pulmonary disease) ALLY on CPAP Obesity (BMI 30-39.9) RLS (restless legs syndrome) GERD (gastroesophageal reflux disease) COPD (chronic obstructive pulmonary disease) Carpal tunnel syndrome Lumbar disc herniation Back pain Syncope Arthritis Arrhythmia Asthma DMII (diabetes mellitus, type 2) HTN (hypertension) Surgical History History of cervical spinal surgery History of lumbosacral spine surgery History of cholecystectomy Family History Father Stroke Social History Household Members: Spouse Housing: Apartment Do you presently have visiting nurse or other home services: No (ELECTRICAL PARTS RECONDITIONER services at home 2x week) Alcohol intake: current Alcohol intake frequency: holidays/special occasions only Patient Tobacco Use Status: Former Tobacco user Tobacco use type: Cigarette e-Cigarette/Vaping Use: Former Use Current occupational status: retired Current occupation: rt handed Review of Systems Const All systems reviewed & are unremarkable except as noted in HPI and below Eyes Reports no additional complaints ENT Reports nasal congestion (Chronic intermittent, with minimal postnasal discharge.) Card Denies chest pain, Denies irregular heart rhythm and Denies leg edema Resp Reports as per HPI GI Reports no additional complaints Reports erectile dysfunction Musc Reports back pain and Reports arthralgias (knees ) Skin/Breast Reports system reviewed and no additional complaints, except as documented Neuro Reports no additional complaints Psych Reports no additional complaints Physical Exam Vital Signs: Last Vital Signs Pulse 67 06/09/25 14:00 BP 145/77 H 06/09/25 14:00 Pulse Ox 95 06/09/25 14:00 Oxygen Delivery Method Room Air 06/09/25 14:00 BMI result Body Mass Index 31.8 Const General: healthy appearing (Except for being overweight,, Weight down by 6 LBs .), comfortable, no acute distress, alert and awake Orientation/consciousness: patient oriented x3 HEENT Head: Yes normal to inspection General nose exam: No nasal polyps present and No nasal discharge present Face and sinus: Yes sinuses nontender Mouth: oropharynx normal Throat: Yes posterior oropharynx normal Eyes General: appearance normal, both eyes and all related structures Neck Neck: Yes normal visual inspection, Yes no lymphadenopathy, Yes trachea midline and Yes no JVD Thyroid: Thyroid normal Chest Chest palpation & inspection: normal inspection of the chest, normal palpation of entire chest wall and no tenderness Resp Other: Percussion note is resonant. Breath sounds are equal on both sides but quite distant with prolonged expiratory phase. A few scattered expiratory wheezes are heard in the upper chest. Cardio Palpation: normal PMI Rate: regular rate Rhythm: regular rhythm Heart sounds: no gallops and no murmurs GI Palpation (GI): Soft to palpation, nontender, No hepatosplenomegaly present and no masses Auscultation: normal bowel sounds Back/Spine/Pelvis Thoracic/Lumbar Spine: thoracic and lumbar spine normal to inspection and thoraco-lumbar ROM limited Skin General skin exam: no rashes or lesions noted Neuro General: patient oriented x3 and no focal motor deficits Cranial nerves: Yes CN's II-XII intact bilaterally Extrem General: Yes normal to inspection, Yes no clubbing, cyanosis or edema and Yes no calf tenderness Psych Appearance: grossly normal and well kempt Speech and movement: Normal speech and movement present Results Reviewed Results Reviewed: Compliance report for the last 30 nights is reviewed. Used / nights and missed 5 nights, because of the hot weather. Pressure is 8 cm. No air leak noted and no residual sleep apnea. Assessment & Plan Assessment & Plan (1) COPD (chronic obstructive pulmonary disease): Comment: HAS CHRONIC ASTHMA/COPD , CURRENTLY WELL CONTROLLED AND STABLE. BUT HE IS PRONE TO HAVE ACUTE EXACERBATIONS QUITE FREQUENTLY. Code(s): J44.9 - Chronic obstructive pulmonary disease, unspecified Category: Medical Plan: ADVAIR HFA 115-21 2 PUFFS B.I.D. IPRATROPIUM-ALBUTEROL SOLUTION IN THE NEBULIZER Q 6 HOURS P.R.N.. I ADVISED HIM TO USE IT ABOUT 3 TIMES A DAY ALBUTEROL HFA 2 PUFFS Q 6 HOURS P.R.N. WHEN OUTDOORS, HE DOES HAVE A SPACER AND HE CAN USE THAT FOR THE THERAPY TO BE MODE EFFECTIVE. (2) Allergic rhinitis: Comment: HAS CHRONIC ALLERGIC RHINITIS WHICH IS RELATIVELY CONTROLLED WITH HIS MAINTENANCE REGIMEN. Code(s): J30.9 - Allergic rhinitis, unspecified Category: Medical Plan: CONTINUE USE MONTELUKAST 10 MG DAILY FLONASE NASAL SPRAY 1 OR 2 SQUIRTS IN EACH NOSTRIL DAILY AND LORATADINE 10 MG ONCE A DAY P.R.N. (3) Obesity (BMI 30-39.9): Comment: HE IS MODERATELY OBESE, HE IS WELL AWARE OF THIS AND TRIES TO WATCH HIS DIET. Code(s): E66.9 - Obesity, unspecified Category: Medical Plan: DISCUSSED ABOUT THE WEIGHT, DIET AND NEED TO WALK DAILY. HE SHOULD TRY TO LOSE ABOUT 10 LB OF WEIGHT. (4) ALLY on CPAP: Comment: OBSTRUCTIVE SLEEP APNEA , MANAGED VERY WELL . COMPLIANCE IS GOOD THOUGH HE MISSED USING A FEW NIGHTS DURING THE MONTH . HE STATES THAT WHEN HE STARTS HAVING COUGH AT NIGHT HE HAS TO REMOVE THE CPAP. Code(s): G47.33 - Obstructive sleep apnea (adult) (pediatric); Z99.89 - Dependence on other enabling machines and devices Category: Medical Plan: COMMENDED FOR GOOD COMPLIANCE AND ADVISED TO USE IT EVERY NIGHT AT LEAST FOR 4-5 HOURS PER NIGHT Coding Level of Care Code Est Pt Level 3 (41656) Diagnoses COPD (chronic obstructive pulmonary disease) J44.9 Allergic rhinitis J30.9 Obesity (BMI 30-39.9) E66.9 ALLY on CPAP G47.33; Z99.89
--- OUTSIDE RECORDS SUMMARY | 2025-06-09 14:30 | XMS_ITS ---
Author Name Rashawn LYON, Mr. Maureen Antunez Address [address] [place] [address] Phone [phone] [facility] Care Team Providers Care Charge Authorizer Name Role Phone Alan Morocho Unavailable [phone] Reason for Referral Not Available Allergies, adverse [...] Pain Assessment - NO pain present (1126F) [facility] [place] Pain Assessment - NO pain present (1126F) [facility] [place] Pain Assessment - NO pain present (1126F) [facility] [place] Pain Assessment - NO pain present (1126F) [facility] [place] Pain Assessment - NO pain present (1126F) [facility] [place] Pain Assessment - NO pain present (1126F) [facility] Pain Assessment - NO pain present (1126F) [facility] [place] Type 2 diabetes w diabetic peripheral angiopath w/o gangreneType 2 diabetes mellitus with other specified complicationHyperlipidemia, unspecifiedEssential (primary) hypertensionChronic obstructive pulmonary disease, unspecifiedVitamin D deficiency, unspecifiedGastro-esophageal reflux disease without esophagitisMale erectile dysfunction, unspecifiedRestless legs syndrome Pain Assessment - NO pain present (1126F) [facility] Pain Assessment - NO pain present (1126F) [facility] Vital Signs Date of Collection Vitals 2022-09-23 13:16:02 Height - 162.56 cmWe ight - 78.02 kgBody Mass Index (BMI) - 29.52 kg/m2BP Diastolic - 88.0 mm[Hg]BP Systolic - 168.0 mm[Hg]Heart Rate - 62.0 /min Social History Social History Social History Observation Description Effec tive Time Current Smoking Status Former smoker 2025-05-24 7 Sex Male History of Procedures Procedures Service [...] (do not use for phone, instead use 29711-73) 10521 2022-09-23 No Data Available No Data Availa [...] completed by a nacho and video using Amp'd Mobile Tablet. Introductory visit with Amp'd Mobile to establish care. Today, patient has chief complaint of: establishing care.Reviewed Allergies, Medications, Active Medical conditions, past medical/surgical history, Social history. 2022-09-23 Most recent hospital stay(s) or ER visit(s) and precipitating factors: Denies recent ER/hospital visit 2022-09-23 Advance care planbenita blandon discussion. Conversation today with: member; Advance Care PlanDo you have an Advance Care Plan? NoDo you have a Durable Power of Dielectric Embossing Machine Operator for Healthcare, or Healthcare Proxy? NoIf so, Who?Code Status: UnknownOther Details of discussion (Who was present, patients description of wishes/goals):
--- OUTSIDE RECORDS SUMMARY | 2025-06-09 14:30 | XMS_ITS | Encounter Summary ---
Author Organization [employer] Address [address] [place] [address] Care Team Providers Care Mold Capper Helper Name Role Phone Colton Nelson MD Primary Care Provide r Encounter Details Date Type Department Care Team (Late st Contact Info) Description 11/13/2023 Abstract [facility] [address] [place] [address] Xavier Kangaris [address] [place] [address] Social History Tobacco Use Types Packs/Day Years [...] Care Team (Late st Contact Info) Description 07/21/2025 3:00 PM EDT Office Visit [facility] [address] [place] [address] Colton Nelson MD [address] [place] [address] 09/16/2025 11:00 AM EDT Clinical Support [facility] [address] [place] [address] Maria Isabel Elam, RN [address] [place] [address] 10/28/2025 10:00 AM EST Office Visit [facility] [address] [place] [address] Pearl, Brielle [address] [place] [address] documented as of this encounter Visit Diagnoses Not on filedocumented in this encounter Additional Health Concerns Assessment Noted Time PHQ-9 Depression Total Score: 0 12/17/19 23 10:18 AM EST documented as of this encounter Care Teams Mold Capper Helper Relationship Specialty Start Date End Date Colton Nelson MD [address] [place] [id number] PCP - General Internal Medicine 05/04/20 [facility] 05/17/25 documented as of this encounter
--- OUTSIDE RECORDS SUMMARY | 2025-06-09 14:30 | XMS_ITS | Patient Health Record ---
Author Organization [facility] Address [address] [place] [address] Care Team Providers Care It Infrastructure Specialist Name Role Phone Kalyani De Leon MD, Colton Primary Care Provide r Mickey Quintero Jr Unavailable [phone] Allergies Allergen (clinical drug ingredient) Drug/Non Drug [...] Problem Status W/U Status Risk Notes Problem [id number] Colon cancer screening (Z12.11) Active confirmed Problem 458215021 Long-term use of aspirin therapy (Z79.82) Active confirmed Problem [id number] custodial (current) use of oral hypoglycemic drugs (Z79.84) Active confirmed Plan Of Treatment Future Test Test Name Order Date COLONOSCOPY 06/22/2020 Insurance Providers Payer Name Payer Address Payer Phone Subscriber Number Group Number Insured Name Patient Relationship to Insured Coverage Start Date Coverage End Date [facility] [address] [address] [place] [address] [id number] TANIA SALMERON Self - patient is the insured Medical (General) History Medical History History ICD Code hypertension type II diabetes asthma Arthritis back pain cirrhosis elevated cholesterol restless leg syndrome COPD ALLY/CPAP Surgical History Surgery Date(Month/Year) Pinched Nerve Back of Head cholecystectomy
== END 2025-06-09 14:23 | disposition home or self-care (01) ==
LOC: HO.HPS 13:48
PROVIDERS: PCP Internal Medicine; Visit Provider Internal Medicine
DX: J44.9 Chronic obstructive pulmonary disease, unspecified (principal); J30.9 Allergic rhinitis, unspecified; E66.9 Obesity, unspecified; G47.33 Obstructive sleep apnea (adult) (pediatric); Z99.89 Dependence on other enabling machines and devices
CPT/HCPCS: 99213

== ENCOUNTER → 2025-06-09 13:47 | Outpatient (BNVA) | payer OTHER, SELFPAY | PROVIDERS: PCP Internal Medicine; Visit Provider Internal Medicine | DX: G47.33 Obstructive sleep apnea (adult) (pediatric) (principal); J44.9 Chronic obstructive pulmonary disease, unspecified; J30.9 Allergic rhinitis, unspecified; E66.9 Obesity, unspecified; Z99.89 Dependence on other enabling machines and devices | CPT/HCPCS: 99212 ==

== ENCOUNTER 2025-06-23 11:28 | Outpatient (AMB) | payer OTHER, SELFPAY ==
--- NOTE | 2025-06-23 11:37 | MHC.OFFVIS ---
Intake Visit Reasons: INJ- Right Rotator cuff tear last inj 10/11/24 Intake Note: Jose Ramon is a 80 year old right hand dominant male who presents today for a repeat injection in the right shoulder. Last injection administered to the right shoulder on 10/11/24. It was recommended that he repeat injections no sooner than Q4M due to diabetes. Patients reports last injection lasted him about a year, recently pain in shoulder has returned. He would like to repeat the injection today. Allergies hydrochlorothiazide Allergy (Unknown, Verified 06/23/25 11:40) unknown lisinopril Allergy (Unknown, Verified 06/23/25 11:40) unknown olmesartan Allergy (Unknown, Verified 06/23/25 11:40) unknown venom-honey bee Allergy (Unknown, Verified 06/23/25 11:40) unknown HPI HPI INJ- Right Rotator cuff tear last inj 10/11/24: Details: Jose Ramon comes in today with continued right shoulder pain. 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 Injections have been helpful and he has not had 1 for 9+ months so I think it is reasonable to repeat them. He has some questions about surgical intervention are other options. He describes pain with abduction and overhead activities. He takes care of his ailing at home. [facility] Medical History Allergic rhinitis RLS (restless legs syndrome) COPD (chronic obstructive pulmonary disease) ALLY on CPAP Obesity (BMI 30-39.9) RLS (restless legs syndrome) GERD (gastroesophageal reflux disease) COPD (chronic obstructive pulmonary disease) Carpal tunnel syndrome Lumbar disc herniation Back pain Syncope Arthritis Arrhythmia Asthma DMII (diabetes mellitus, type 2) HTN (hypertension) Surgical History History of cervical spinal surgery History of lumbosacral spine surgery History of cholecystectomy Family History Father Stroke Social History Household Members: Spouse Housing: Apartment Do you presently have visiting nurse or other home services: No (BAG MAKING MACHINE TENDER services at home 2x week) Alcohol intake: current Alcohol intake frequency: holidays/special occasions only Patient Tobacco Use Status: Former Tobacco user Tobacco use type: Cigarette e-Cigarette/Vaping Use: Former Use Current occupational status: retired Current occupation: rt handed Physical Exam Extrem Other: +H/N 4/5 EC Neg lift off Office Procedures Joint Inj/Aspir; Non-Pain Clin Joint Injection/Drain Details: Injected 1 mL of Decadron and 3 mL 1% lidocaine and 3 mL of 0.25% Marcaine. Site was prepped using aseptic technique. Patient tolerated the procedure well. Shoulders, Hips, Knees, Shoulder Injection Large joint : Right Shoulder Coding Procedure code (CPT) selection complete Assessment & Plan Assessment & Plan (1) DMII (diabetes mellitus, type 2): Code(s): E11.9 - Type 2 diabetes mellitus without complications Category: Medical Plan: I informed him of the hyperglycemic effects of steroids (2) Rotator cuff tear, right: Code(s): M75.101 - Unspecified rotator cuff tear or rupture of right shoulder, not specified as traumatic Category: Medical Plan: I injected his right shoulder again. He has high-grade tear of the infraspinatus and a partial tear of the supraspinatus. Overall it is a difficult situation and I do not think surgery would benefit him at this time. Injections have been doing reasonable job of controlling his pain I recommend he avoid heavy lifting. He expressed understanding. He can follow up as needed. Coding Level of Care Code Est Pt Level 4 (92379) Diagnoses DMII (diabetes mellitus, type 2) E11.9 Rotator cuff tear, right M75.101 CPT Codes Shoulders, Hips, Knees, - Shoulder Injection Large joint : Right Shoulder ([id number])
--- OUTSIDE RECORDS SUMMARY | 2025-06-23 12:13 | XMS_ITS | Encounter Summary ---
Author Organization [employer] Address [address] [place] [address] Care Team Providers Care Private Eye Name Role Phone Colton Nelson MD Primary Care Provide r Encounter Details Date Type Department Care Team (Late st Contact Info) Description 11/13/2023 Abstract [facility] [address] [place] [address] Xavier Kangaris [address] [place] [address] Social History Tobacco Use Types Packs/Day Years [...] Description 07/21/2025 3:00 PM EDT Office Visit [facility] [address] [place] [address] Colton Nelson MD [address] [place] [address] 09/16/2025 11:00 AM EDT Clinical Support [facility] [address] [place] [id number] Maria Isabel Elam, RN [address] [place] [address] 10/28/2025 10:00 AM EST Office Visit [facility] [address] [place] [address] Pearl, Brielle [address] [place] [address] documented as of this encounter Visit Diagnoses Not on filedocumented in this encounter Additional Health Concerns Assessment Noted Time PHQ-9 Depression Total Score: 0 12/17/19 23 10:18 AM EST documented as of this encounter Care Teams Private Eye Relationship Specialty Start Date End Date Colton Nelson MD [address] [place] [id number] PCP - General Internal Medicine 05/04/20 [facility] 05/17/25 documented as of this encounter
--- OUTSIDE RECORDS SUMMARY | 2025-06-23 12:13 | XMS_ITS | Patient Health Record ---
Author Organization [facility] Address [address] [place] [address] Care Team Providers Care Battery Vent Plug Inserter Name Role Phone Kalyani De Leon MD, [...] Problem Status W/U Status Risk Notes Problem [id number] Colon cancer screening (Z12.11) Active confirmed Problem 789034268 Long-term use of aspirin therapy (Z79.82) Active confirmed Problem [id number] half-way (current) use of oral hypoglycemic drugs (Z79.84) Active confirmed Plan Of Treatment Future Test Test Name Order Date COLONOSCOPY 06/22/2020 Insurance Providers Payer Name Payer Address Payer Phone Subscriber Number Group Number Insured Name Patient Relationship to Insured Coverage Start Date Coverage End Date [facility] [address] [address] [place] [address] [id number] TANIA SALMERON Self - patient is the insured Medical (General) History Medical History History ICD Code hypertension type II diabetes asthma Arthritis back pain cirrhosis elevated cholesterol restless leg syndrome COPD ALLY/CPAP Surgical History Surgery Date(Month/Year) Pinched Nerve Back of Head cholecystectomy
--- OUTSIDE RECORDS SUMMARY | 2025-06-23 12:13 | XMS_ITS ---
Author Name Rashawn LYON, Mr. Maureen Antunez Address [address] [place] [address] Phone [phone] [facility] Care Team Providers Care Senior Accounts Payable Clerk Name Role Phone Alan Morocho Unavailable [phone] Reason for Referral Not Available Allergies, adverse [...] Assessment - NO pain present (1126F) [facility] [place] Pain Assessment - NO pain present (1126F) [facility] [place] Pain Assessment - NO pain present (1126F) [facility] Pain Assessment - NO pain present (1126F) [facility] Pain Assessment - NO pain present (1126F) [facility] Pain Assessment - NO pain present (1126F) [facility] Pain Assessment - NO pain present (1126F) [facility]20[place] Type 2 diabetes w diabetic peripheral angiopath w/o gangreneType 2 diabetes mellitus with other specified complicationHyperlipidemia, unspecifiedEssential (primary) hypertensionChronic obstructive pulmonary disease, unspecifiedVitamin D deficiency, unspecifiedGastro-esophageal reflux disease without esophagitisMale erectile dysfunction, unspecifiedRestless legs syndrome Pain Assessment - NO pain present (1126F) [facility]20[place] Pain Assessment - NO pain present (1126F) [facility] Vital Signs Date of Collection Vitals 2022-09-23 13:16:02 Height - 162.56 cmWe ight - 78.02 kgBody Mass Index (BMI) - 29.52 kg/m2BP Diastolic - 88.0 mm[Hg]BP Systolic - 168.0 mm[Hg]Heart Rate - 62.0 /min Social History Social History Social History Observation Description Effec tive Time Current Smoking Status Former smoker 2025-05-26 1 Sex Male History of Procedures Procedures Service [...] (do not use for phone, instead use 34679-00) [id number] 2022-09-23 No Data Available No Data Availa [...] completed by a nacho and video using [employer] Tablet. Introductory visit with Quemulus to establish care. Today, patient has chief complaint of: establishing care.Reviewed Allergies, Medications, Active Medical conditions, past medical/surgical history, Social history. 2022-09-23 Most recent hospital stay(s) or ER visit(s) and precipitating factors: Denies recent ER/hospital visit 2022-09-23 Advance care planbenita blandon discussion. Conversation today with: member; Advance Care PlanDo you have an Advance Care Plan? NoDo you have a Durable Power of Parts Counter Salesperson for Healthcare, or Healthcare Proxy? NoIf so, Who?Code Status: UnknownOther Details of discussion (Who was present, patients description of wishes/goals):
== END 2025-06-23 12:54 | disposition home or self-care (01) ==
LOC: HO.HOS 11:28
PROVIDERS: PCP Internal Medicine; Visit Provider Orthopaedic Surgery
DX: M75.101 Unspecified rotator cuff tear or rupture of right shoulder, not specified as traumatic (principal); E11.9 Type 2 diabetes mellitus without complications
CPT/HCPCS: 20610; 99214

== ENCOUNTER → 2025-06-23 11:28 | Outpatient (BNVA) | payer OTHER, SELFPAY | PROVIDERS: PCP Internal Medicine; Visit Provider Orthopaedic Surgery | DX: M75.101 Unspecified rotator cuff tear or rupture of right shoulder, not specified as traumatic (principal); E11.9 Type 2 diabetes mellitus without complications | CPT/HCPCS: 20610; 99212; J0665; J1100; J2003 ==

== ENCOUNTER 2025-07-05 13:26 | Outpatient (REF) | payer OTHER, SELFPAY ==
--- OUTSIDE RECORDS SUMMARY | 2025-07-06 07:53 | XMS_ITS ---
Author Name Rashawn LYON, Mr. Maureen Antunez Address [address] [place] [address] Phone [phone] [facility] Care Team Providers Care Glazing Machine Operator Name Role Phone Alan Morocho Unavailable [phone] Reason for Referral Not Available Allergies, adverse [...] Pain Assessment - NO pain present (1126F) [facility] [place] Pain Assessment - NO pain present (1126F) [facility] [place] Pain Assessment - NO pain present (1126F) [facility] [place] Pain Assessment - NO pain present (1126F) [facility] [place] Pain Assessment - NO pain present (1126F) [facility] [place] Pain Assessment - NO pain present (1126F) [facility] [place] Pain Assessment - NO pain present (1126F) [facility] [place]2022 Type 2 diabetes w diabetic peripheral angiopath w/o gangreneType 2 diabetes mellitus with other specified complicationHyperlipidemia, unspecifiedEssential (primary) hypertensionChronic obstructive pulmonary disease, unspecifiedVitamin D deficiency, unspecifiedGastro-esophageal reflux disease without esophagitisMale erectile dysfunction, unspecifiedRestless legs syndrome Pain Assessment - NO pain present (1126F) [facility] [place] Pain Assessment - NO pain present (1126F) [facility] [place]20[place] Vital Signs Date of Collection Vitals 2022-09-23 13:16:02 Height - 162.56 cmWe ight - 78.02 kgBody Mass Index (BMI) - 29.52 kg/m2BP Diastolic - 88.0 mm[Hg]BP Systolic - 168.0 mm[Hg]Heart Rate - 62.0 /min Social History Social History Social History Observation Description Effec tive Time Current Smoking Status Former smoker 2025-06-24 3 Sex Male History of Procedures Procedures Service [...] (do not use for phone, instead use 86868-09) [id number] 2022-09-23 No Data Available No Data Availa [...] completed by a nacho and video using Smile Tablet. Introductory visit with Smile to establish care. Today, patient has chief complaint of: establishing care.Reviewed Allergies, Medications, Active Medical conditions, past medical/surgical history, Social history. 2022-09-23 Most recent hospital stay(s) or ER visit(s) and precipitating factors: Denies recent ER/hospital visit 2022-09-23 Advance care planbenita blandon discussion. Conversation today with: member; Advance Care PlanDo you have an Advance Care Plan? NoDo you have a Durable Power of Media Center Specialist for Healthcare, or Healthcare Proxy? NoIf so, Who?Code Status: UnknownOther Details of discussion (Who was present, patients description of wishes/goals):
--- OUTSIDE RECORDS SUMMARY | 2025-07-06 07:54 | XMS_ITS | Patient Health Record ---
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 [address] [place] [address] [id number] TANIA SALMERON Self - patient is the insured Medical (General) History Medical History History ICD Code hypertension type II diabetes asthma Arthritis back pain cirrhosis elevated cholesterol restless leg syndrome COPD ALLY/CPAP Surgical History Surgery Date(Month/Year) Pinched Nerve Back of Head cholecystectomy
== END 2025-07-05 13:27 | disposition home or self-care (01) ==
LOC: HO.LNP 13:26
PROVIDERS: PCP Internal Medicine; Visit Provider Surgery
DX: L72.3 Sebaceous cyst (principal)
CPT/HCPCS: 11402; 88304

== ENCOUNTER 2025-07-05 13:26 | Outpatient (AMB) | payer OTHER, SELFPAY ==
--- NOTE | 2025-07-05 13:28 | MHC.OFFVIS ---
Intake Visit Reasons: Excision sebaceous cyst on back Intake Note: Patient is seen for office procedure, excision sebaceous cyst on back. Pt c/o: here for cyst removal denies any changes Senior It Project Manager Required: Yes Senior It Project Manager Language: Mechanical Test Engineer Services: Senior It Project Manager Present Senior It Project Manager Name: Cara GAVIRIA Information Interpreted: non-clinical & clinical Aerial Survey Technician: Aerial Survey Technician Present Accompanied by: Self / Same As Patient Allergies hydrochlorothiazide Allergy (Unknown, Verified 07/05/25 13:50) unknown lisinopril Allergy (Unknown, Verified 07/05/25 13:50) unknown olmesartan Allergy (Unknown, Verified 07/05/25 13:50) unknown venom-honey bee Allergy (Unknown, Verified 07/05/25 13:50) unknown HPI Comments Details: Patient returns for excision of sebaceous cyst located on the left upper back. [facility] Medical History Allergic rhinitis RLS (restless legs syndrome) COPD (chronic obstructive pulmonary disease) ALLY on CPAP Obesity (BMI 30-39.9) RLS (restless legs syndrome) GERD (gastroesophageal reflux disease) COPD (chronic obstructive pulmonary disease) Carpal tunnel syndrome Lumbar disc herniation Back pain Syncope Arthritis Arrhythmia Asthma DMII (diabetes mellitus, type 2) HTN (hypertension) Surgical History History of cervical spinal surgery History of lumbosacral spine surgery History of cholecystectomy Family History Father Stroke Social History Household Members: Spouse Housing: Apartment Do you presently have visiting nurse or other home services: No ([employer] services at home 2x week) Alcohol intake: current Alcohol intake frequency: holidays/special occasions only Patient Tobacco Use Status: Former Tobacco user Tobacco use type: Cigarette e-Cigarette/Vaping Use: Former Use Current occupational status: retired Current occupation: rt handed Physical Exam Const General: healthy appearing Nutritional Appearance: well nourished Orientation/consciousness: patient oriented x3 Back/Spine/Pelvis Back/spine/pelvis image:  1. 1 cm cyst left upper back Neuro General: patient oriented x3 Office Procedures Excision Details: Preoperative diagnosis: Sebaceous cyst left upper back Postoperative diagnosis: Same Procedure: Excision of sebaceous cyst left upper back Surgeon: Lambert Rojas MD Assortment Planner: None Anesthesia: Lidocaine 1% Indications for procedure: Previously infected sebaceous cyst left upper back Operative findings: 1 cm sebaceous cyst left upper back Specimen: Sebaceous cyst left upper back Estimated blood loss: 2 mL Complications: None Procedure details: Patient was brought to the procedure room and placed in a prone position. The site of surgery was confirmed by the patient in the left upper back. After assuring informed consent, the skin was prepped with Betadine and draped in a sterile fashion. Local anesthesia was then infiltrated circumferentially around the cyst. Elliptical incision oriented longitudinally was then created with a 15 blade. This was carried down to the subcutaneous tissue and around the cyst wall. The lesion was excised and sent to pathology for further examination. Hemostasis was assured using light pressure. Skin was then closed using interrupted 3-0 nylon sutures. Sterile dressings consisting of 2 x 2 gauze and Tegaderm were then applied. The patient tolerated the procedure well. He was discharged in stable condition. 86582-zhxee/arms/legs 0.6-1cm Procedure code (CPT) selection complete Assessment & Plan Assessment & Plan (1) Sebaceous cyst: Code(s): L72.3 - Sebaceous cyst Category: Medical Plan 72-year-old male patient presenting with a previously infected sebaceous cyst now presenting for excision of this cyst in the left upper back. He tolerated the procedure well and will return approximately 1 week for suture removal. Coding Level of Care Code Procedure Only Diagnoses Sebaceous cyst L72.3 CPT Codes Trunk/Arms/Legs - CPT: 99875-qdqhw/arms/legs 0.6-1cm ([id number])
--- OUTSIDE RECORDS SUMMARY | 2025-07-05 14:15 | XMS_ITS | Patient Health Record ---
Author Organization [facility] Address [address] [place] [address] Care Team Providers Care Lead Furnace Operator Name Role Phone Kalyani De Leon MD, [...] Problem Status W/U Status Risk Notes Problem [id number] Colon cancer screening (Z12.11) Active confirmed Problem 792121482 Long-term use of aspirin therapy (Z79.82) Active confirmed Problem [id number] petroleum terminal plant operator (current) use of oral hypoglycemic drugs (Z79.84) Active confirmed Plan Of Treatment Future Test Test Name Order Date COLONOSCOPY 06/22/2020 Insurance Providers Payer Name Payer Address Payer Phone Subscriber Number Group Number Insured Name Patient Relationship to Insured Coverage Start Date Coverage End Date [facility] [address] [address] [place] [address] [phone] [id number] TANIA SALMERON Self - patient is the insured Medical (General) History Medical History History ICD Code hypertension type II diabetes asthma Arthritis back pain cirrhosis elevated cholesterol restless leg syndrome COPD ALLY/CPAP Surgical History Surgery Date(Month/Year) Pinched Nerve Back of Head cholecystectomy
--- OUTSIDE RECORDS SUMMARY | 2025-07-05 14:15 | XMS_ITS ---
Author Name Rashawn LYON, Mr. Maureen Antunez Address [address] [place] [address] Phone [phone] [facility] Care Team Providers Care Manager Market Intelligence Name Role Phone Alan Morocho Unavailable [phone] Reason for Referral Not Available Allergies, adverse [...] Pain Assessment - NO pain present (1126F) [facility] [place] [place] Pain Assessment - NO pain present (1126F) [facility] [place] Pain Assessment - NO pain present (1126F) [facility] [place] Pain Assessment - NO pain present (1126F) [facility] [place] Pain Assessment - NO pain present (1126F) [facility] [place] Pain Assessment - NO pain present (1126F) [facility] [place] Pain Assessment - NO pain present (1126F) [facility] [place]20[place] Type 2 diabetes w diabetic peripheral angiopath w/o gangreneType 2 diabetes mellitus with other specified complicationHyperlipidemia, unspecifiedEssential (primary) hypertensionChronic obstructive pulmonary disease, unspecifiedVitamin D deficiency, unspecifiedGastro-esophageal reflux disease without esophagitisMale erectile dysfunction, unspecifiedRestless legs syndrome Pain Assessment - NO pain present (1126F) [facility] Pain Assessment - NO pain present (1126F) [facility] Vital Signs Date of Collection Vitals 2022-09-23 13:16:02 Height - 162.56 cmWe ight - 78.02 kgBody Mass Index (BMI) - 29.52 kg/m2BP Diastolic - 88.0 mm[Hg]BP Systolic - 168.0 mm[Hg]Heart Rate - 62.0 /min Social History Social History Social History Observation Description Effec tive Time Current Smoking Status Former smoker 2025-06-24 2 Sex Male History of Procedures Procedures Service [...] (do not use for phone, instead use 27202-09) 91145 2022-09-23 No Data Available No Data Availa [...] completed by a nacho and video using Ranovus Tablet. Introductory visit with Ranovus to establish care. Today, patient has chief complaint of: establishing care.Reviewed Allergies, Medications, Active Medical conditions, past medical/surgical history, Social history. 2022-09-23 Most recent hospital stay(s) or ER visit(s) and precipitating factors: Denies recent ER/hospital visit 2022-09-23 Advance care planbenita blandon discussion. Conversation today with: member; Advance Care PlanDo you have an Advance Care Plan? NoDo you have a Durable Power of Railway Traction Line Worker for Healthcare, or Healthcare Proxy? NoIf so, Who?Code Status: UnknownOther Details of discussion (Who was present, patients description of wishes/goals):
--- OUTSIDE RECORDS SUMMARY | 2025-07-05 14:15 | XMS_ITS | Encounter Summary ---
Author Organization [employer] Address [address] [facility] 7[address] [place] [address] Care Team Providers Care Nursery Helper Name Role Phone Colton Nelson MD Primary Care Provide r Encounter Details Date Type Department Care Team (Late st Contact Info) Description 11/13/2023 Abstract [facility] [address] [place] [address] Brielle Kang [address] [place] [address] Social History Tobacco Use Types Packs/Day Years [...] Care Team (Late st Contact Info) Description 07/18/2025 2:30 PM EDT Office Visit [facility] [address] [place] [address] Shiela Alvarez, DDS [address] [place] [address] 07/21/2025 3:00 PM EDT Office Visit [facility] [address] [place] [address] Colton Nelson MD [address] [place] [address] 09/16/2025 11:00 AM EDT Clinical Support [facility] [address] [place] [address] Maria Isabel Elam, ELEAZAR [address] [place] [address] 10/28/2025 10:00 AM EST Office Visit [facility] [address] [place] [address] Brielle Kang [address] [place] [address] documented as of this encounter Visit Diagnoses Not on filedocumented in this encounter Additional Health Concerns Assessment Noted Time PHQ-9 Depression Total Score: 0 12/17/19 23 10:18 AM EST documented as of this encounter Care Teams Nursery Helper Relationship Specialty Start Date End Date Colton Nelson MD [address] [place] [address] PCP - General Internal Medicine 05/04/20 [facility] 05/17/25 documented as of this encounter
== END 2025-07-05 14:04 | disposition home or self-care (01) ==
LOC: HO.HGS 13:26
PROVIDERS: PCP Internal Medicine; Visit Provider Surgery
DX: L72.0 Epidermal cyst (principal)
CPT/HCPCS: 11402

== ENCOUNTER 2025-07-12 10:25 | Outpatient (AMB) | payer OTHER, SELFPAY ==
--- NOTE | 2025-07-12 10:26 | MHC.OFFVIS ---
Vital Signs 07/12/25 10:31 Height 5 ft 4 in Weight 179 lb BMI 30.7 BP 149/68 H Blood Pressure Location Rt brachial Position Sitting Pulse 72 Intake Visit Reasons: sebaceous cyst Intake Note: Patient is seen for post office procedure, excision sebaceous cyst on back. Pt c/o: site healing well. Denies pain, oozing, itch. Top Closer Required: No Accompanied by: Self / Same As Patient Allergies hydrochlorothiazide Allergy (Unknown, Verified 07/12/25 10:27) unknown lisinopril Allergy (Unknown, Verified 07/12/25 10:27) unknown olmesartan Allergy (Unknown, Verified 07/12/25 10:27) unknown venom-honey bee Allergy (Unknown, Verified 07/12/25 10:27) unknown HPI Comments Details: 72-year-old male patient returning 1 week following excision of a sebaceous cyst of the upper midback. He tolerated the procedure well and denies any ongoing problems with the incision. [facility] Medical History Allergic rhinitis RLS (restless legs syndrome) COPD (chronic obstructive pulmonary disease) ALLY on CPAP Obesity (BMI 30-39.9) RLS (restless legs syndrome) GERD (gastroesophageal reflux disease) COPD (chronic obstructive pulmonary disease) Carpal tunnel syndrome Lumbar disc herniation Back pain Syncope Arthritis Arrhythmia Asthma DMII (diabetes mellitus, type 2) HTN (hypertension) Surgical History History of cervical spinal surgery History of lumbosacral spine surgery History of cholecystectomy Family History Father Stroke Social History Household Members: Spouse Housing: Apartment Do you presently have visiting nurse or other home services: No (RN [employer]AL[employer] services at home 2x week) Alcohol intake: current Alcohol intake frequency: holidays/special occasions only Patient Tobacco Use Status: Former Tobacco user Tobacco use type: Cigarette e-Cigarette/Vaping Use: Former Use Current occupational status: retired Current occupation: rt handed Physical Exam Vital Signs: Last Vital Signs Pulse 72 07/12/25 10:31 BP 149/68 H 07/12/25 10:31 BMI result Body Mass Index 30.7 Const General: healthy appearing Nutritional Appearance: well nourished Orientation/consciousness: patient oriented x3 Limitations: ambulation with cane Resp Effort & Inspection: normal respiratory effort Back/Spine/Pelvis Back/spine/pelvis image:  1. Excision site upper back. Sutures were removed and Steri-Strips applied. Wounds were found to be well healed. Neuro General: patient oriented x3 Assessment & Plan Assessment & Plan (1) Sebaceous cyst: Code(s): L72.3 - Sebaceous cyst Category: Medical Plan 72-year-old male patient returning 1 week following excision of a sebaceous cyst from the upper back. He tolerated the procedure well the wounds are healing nicely. He should follow up as needed. Coding Level of Care Code Global (84917) Diagnoses Sebaceous cyst L72.3
[2025-07-12 10:31] VITALS: BP 149/68; PULSE 72; BMI 30.7
--- OUTSIDE RECORDS SUMMARY | 2025-07-12 11:44 | XMS_ITS ---
Author Name Rashawn LYON, Mr. Maureen Antunez Address [address] [place] [address] Phone [phone] [facility] Care Team Providers Care Scrap Handler Name Role Phone Alan Morohco Unavailable [phone] Reason for Referral Not Available Allergies, adverse [...] Pain Assessment - NO pain present (1126F) [facility] [place] Pain Assessment - NO pain present (1126F) [facility] Pain Assessment - NO pain present (1126F) [facility] Pain Assessment - NO pain present (1126F) [facility] [place] Pain Assessment - NO pain present (1126F) [facility] Pain Assessment - NO pain present (1126F) [facility] Pain Assessment - NO pain present (1126F) [facility] [place]20[place] Type 2 diabetes w diabetic peripheral angiopath w/o gangreneType 2 diabetes mellitus with other specified complicationHyperlipidemia, unspecifiedEssential (primary) hypertensionChronic obstructive pulmonary disease, unspecifiedVitamin D deficiency, unspecifiedGastro-esophageal reflux disease without esophagitisMale erectile dysfunction, unspecifiedRestless legs syndrome Pain Assessment - NO pain present (1126F) [facility] Pain Assessment - NO pain present (1126F) [facility] Vital Signs Date of Collection Vitals 2022-09-23 13:16:02 Height - 162.56 cmWe ight - 78.02 kgBody Mass Index (BMI) - 29.52 kg/m2BP Diastolic - 88.0 mm[Hg]BP Systolic - 168.0 mm[Hg]Heart Rate - 62.0 /min Social History Social History Social History Observation Description Effec tive Time Current Smoking Status Former smoker 2025-06-24 11 Sex Male History of Procedures Procedures Service [...] (do not use for phone, instead use 08632-60) [id number] 2022-09-23 No Data Available No Data Availa [...] completed by a nacho and video using GROUNDFLOOR Tablet. Introductory visit with GROUNDFLOOR to establish care. Today, patient has chief complaint of: establishing care.Reviewed Allergies, Medications, Active Medical conditions, past medical/surgical history, Social history. 2022-09-23 Most recent hospital stay(s) or ER visit(s) and precipitating factors: Denies recent ER/hospital visit 2022-09-23 Advance care planbenita blandon discussion. Conversation today with: member; Advance Care PlanDo you have an Advance Care Plan? NoDo you have a Durable Power of Manager Plumbing for Healthcare, or Healthcare Proxy? NoIf so, Who?Code Status: UnknownOther Details of discussion (Who was present, patients description of wishes/goals):
--- OUTSIDE RECORDS SUMMARY | 2025-07-12 11:44 | XMS_ITS | Encounter Summary ---
Author Organization [employer] Address [address] [facility] [address] [place] [address] Care Team Providers Care Yolk Spray Drier Name Role Phone Colton Nelson MD Primary Care Provide r Encounter Details Date Type Department Care Team (Late st Contact Info) Description 11/13/2023 Abstract [facility] [address] [place] [address] Brielle Kang [address] [place] [address] Social History Tobacco Use Types Packs/Day Years [...] Description 07/18/2025 2:30 PM EDT Office Visit [facility] [address] [place] [address] Shiela Alvarez, DDS [address] [place] [address] 07/21/2025 3:00 PM EDT Office Visit [facility] [address] [place] [address] Colton Nelson MD [address] [place] [address] 09/16/2025 11:00 AM EDT Clinical Support [facility] [address] [place] [address] Maria Isabel Elam, ELEAZAR [address] [place] [address] 10/28/2025 10:00 AM EST Office Visit [facility] [address] [place] [address] Brielle Kang [address] [place] [address] documented as of this encounter Visit Diagnoses Not on filedocumented in this encounter Additional Health Concerns Assessment Noted Time PHQ-9 Depression Total Score: 0 12/17/19 23 10:18 AM EST documented as of this encounter Care Teams Yolk Spray Drier Relationship Specialty Start Date End Date Colton Nelson MD [address] [place] [address] PCP - General Internal Medicine 05/04/20 [facility] 05/17/25 documented as of this encounter
--- OUTSIDE RECORDS SUMMARY | 2025-07-12 11:44 | XMS_ITS | Patient Health Record ---
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 [address] [place] [address] [id number] TANIA SALMERON Self - patient is the insured Medical (General) History Medical History History ICD Code hypertension type II diabetes asthma Arthritis back pain cirrhosis elevated cholesterol restless leg syndrome COPD ALLY/CPAP Surgical History Surgery Date(Month/Year) Pinched Nerve Back of Head cholecystectomy
== END 2025-07-12 10:39 | disposition home or self-care (01) ==
LOC: HO.HGS 10:26
PROVIDERS: PCP Internal Medicine; Visit Provider Surgery
DX: L72.3 Sebaceous cyst (principal)
CPT/HCPCS: 99024

== ENCOUNTER → 2025-07-12 10:25 | Outpatient (BNVA) | payer OTHER, SELFPAY | PROVIDERS: PCP Internal Medicine; Visit Provider Surgery | DX: L72.3 Sebaceous cyst (principal) | CPT/HCPCS: 99212 ==

== ENCOUNTER 2025-08-22 14:58 | Outpatient (REF) | payer OTHER, SELFPAY ==
--- OUTSIDE RECORDS SUMMARY | 2025-08-22 13:40 | XMS_ITS | Encounter Summary ---
Author Organization [employer] Address [address] [facility] [address] [place] [address] Care Team Providers Care Grounds Supervisor Name Role Phone Colton Nelson MD Primary Care Provide r Reason for Referral * Consultation (Routine) - Pending Review Specialty Diagnoses / Procedures Referred By Dennys fall Referred To Contact Gastroenterology Diagnoses Epigastric pain PUD (peptic ulcer disease) Ilene Costello NP [address] [place] [address] Phone: tel: fax: Referral ID Status Reason Start Date Expiration Date Visits Requested Visits Authorized [id number] Pending Review Specialty Services Required 08/22/2025 08/22/2026 1 1 Reason for Visit * Reason Comments Abdominal Pain Vomiting Encounter Details Date Type Department Care Team ([facility] st Contact Info) Description 08/22/2025 1:40 PM EDT Office Visit [facility] [address] [place], [place] [phone] Epigastric pain (Primary Dx); PUD (peptic ulcer disease) Social History Tobacco Use Types Packs/Day Years [...] Sign Reading Time Taken Comments Blood Pressure 151/77 08/22/2025 2:14 PM EDT Pulse 69 08/22/2025 2:14 PM EDT Temperature 36.5 C (97.7 F) 08/22/2025 2:14 PM EDT Respiratory Rate 20 08/22/2025 2:14 PM EDT Oxygen Saturation 96% 08/22/2025 2:14 PM EDT Inhaled Oxygen Concentration - - Weight 81.6 kg (180 lb) 08/22/2025 2:14 PM EDT Height 165.1 cm (5' 5 ) 08/22/2025 2:14 PM EDT Body Mass Index 29.95 08/22/2025 2:14 PM EDT documented in this encounter Miscellaneous Notes * Assessment & Plan Note - Ilene Costello NP - 08/22/2025 1:40 PM EDTAssociated Problem(s): Epigastric pain Orders: CBC auto differential; Future Comprehensive Metabolic Panel; Future pantoprazole (ProtoNix) 40 MG EC tablet; Take 1 tablet (40 mg) by mouth before breakfast. Do not crush, chew, or split. Sed Rate by Modified Westergren; Future C-reactive Protein; Future Referral to Gastroenterology; Future * Assessment & Plan Note - Ilene Costello NP - 08/22/2025 1:40 PM EDTAssociated Problem(s): PUD (peptic ulcer disease) Orders: pantoprazole (ProtoNix) 40 MG EC tablet; Take 1 tablet (40 mg) by mouth before breakfast. Do not crush, chew, or split. Sed Rate by Modified Westergren; Future C-reactive Protein; Future Referral to Gastroenterology; Future documented in this encounter Plan of Treatment Upcoming Encounters Date Type Department Care Team (Late st Contact Info) Description 09/07/2025 8:00 AM EDT Office Visit [facility] ADULT DENTAL [address] [place] [address] Bennett Yung, KAELA [address] [place] [address] 09/16/2025 11:00 AM EDT Clinical Support [facility] MEDICINE [address] [place] [phone] Maria Isabel Elam RN [address] [place] [address] 09/27/2025 3:00 PM EST Office Visit [address] [address] Colton Nelson MD [address] [place] [address] 10/28/2025 10:15 AM EST Office Visit [facility] ADULT DENT[facility] [address] [place], [place] [phone] Brielle Kang [address] [place] [address] Scheduled Orders Name Type Priority Associated Diagnoses Orde r Schedule Sed Rate by Modified Westergren Lab Routine Epigastric pain PUD (peptic ulcer disease) Expected: 08/22/2025, Expires: 08/22/2026 Scheduled Referrals Name Type Priority Associated Diagnoses Order Schedule Referral to Gastroenterology Outpatient Referral Routine Epigastric pain PUD (peptic ulcer disease) Expected: 08/22/2025 (Approximate), Expires: 08/22/2026 documented as of this encounter Procedures Procedure Name Priority Date/Time Associated Diagnosis Comments CBC WITH AUTO DIFFERENTIAL Routine 08/22/2025 3:02 PM EDT Epigastric pain C-REACTIVE PROTEIN Routine 08/22/2025 3: 02 PM EDT Epigastric pain PUD (peptic ulcer disease) COMPREHENSIVE METABOLIC PANEL Routine 08/22/2025 3:02 PM EDT Epigastric pain documented in this encounter Results * C-reactive Protein (08/22/2025 3:02 PM EDT) C Reactive Protein 0.22 < or = 0.50 mg/dL [facility] Blood Venous blood specimen / Unknown 08/22/2025 3:02 PM EDT 08/22/2025 4:05 PM EDT Ilene Costello NP LAB BLOOD ORDERABLES Final Resul t [facility] [address] [place] [address] [phone] * (ABNORMAL) Comprehensive Metabolic Panel (08/22/2025 3:02 PM EDT) Pathologist [facility] Sodium 141 135 - 145 mmol/L [facility] Potassium 4.1 3.3 - 5.1 mmol/L [facility] Chloride 101 96 - 108 mmol/L [facility] Carbon Dioxide 31(H) 22 - 29 mmol/L [facility] Anion Gap 13 12 - 20 [facility] Urea Nitrogen (BUN) 16 9 - 16 mg/dL [facility] Creatinine, Serum 1.05 0.5 - 1.4 mg/dL [facility] Estimated Glomerular Filt Rate >60 [facility] Comment:Chronic Kidney Disea se: Estimated GFR < 60 mL/min/1.30x4Dowpdb Kidney Disease: Estimated GFR < 15 mL/min/1.73m2 Glucose 248(H) 60 - 115 mg/dL [facility] Calcium 9.5 8.4 - 10.2 mg/dL [facility] Bilirubin, Total 0.5 0.0 - 1.0 mg/dL [facility] Aspartate Amino Transferase 28 5 - 37 U/L [facility] Alanine Aminotransferase 28 0 - 40 U/L [facility] Total Protein 7.2 6.5 - 8.0 g/dL [facility] Albumin Level 4.3 3.5 - 5.0 g/dL [facility] Alkaline Phosphatase 72 39 - 117 U/L [facility] Blood Venous blood specimen / Unknown 08/22/2025 3:02 PM EDT 08/22/2025 4:05 PM EDT us Ilene Costello [employer] LAB BLOOD ORDERABLES Final Resul t [facility] [address] [place] [address] [phone] * (ABNORMAL) CBC auto differential (08/22/2025 3:02 PM EDT) Pathologist [facility] White Blood Count 7.0 4.8 - 10.8 X10*3/uL [facility] Red Blood Count 4.38(L) 4.60 - 5.80 X10*6/uL [facility] Hemoglobin 13.3(L) 14.0 - 18.0 g/dl [facility] Hematocrit 40.6(L) 42.0 - 52.0 % [facility] Mean Corpuscular Volume 92.7 80.0 - 98.0 fL [facility] Mean Corpuscular Hemoglobin 30.4 27.0 - 33.0 pg [facility] Mean Corpuscular HGB Conc 32.8 31.0 - 36.0 g/dl [facility] Red Cell Distribution Width 12.8 11.0 - 16.0 % [facility] Platelet Count 226 160 - 400 X10*3/uL [facility] Mean Platelet Volume 10.2 9.4 - 12.4 fL [facility] Neutrophils Percent Auto 73.6(H) 45 - 73 % [facility] Imm Gran Pct Auto 0.3 0.0 - 0.4 % [facility] Lymphocytes Percent Auto 16.6(L) 20 - 40 % [facility] Monocytes Percent Auto 7.3 2 - 11 % [facility] Eosinophils Percent Auto 1.3 0 - 4 % [facility] Basophils Percent Auto 0.9 0 - 2 % [facility] NRBC Pct Auto 0.0 0.0 - 0.2 /100WBC [facility] Neutrophils Absolute Auto 5.2 2.0 - 8.3 x10*3/uL [facility] Imm Gran Abs Auto 0.02 0.00 - 0.03 X10*3/uL [facility] Lymphocytes Absolute Auto 1.2 1.2 - 4.9 X10*3/uL [facility] Monocytes Absolute Auto 0.5 0.1 - 1.2 X10*3/uL [facility] Eosinophils Absolute Auto 0.1 0.0 - 0.4 X10*3/uL [facility] Basophils Absolute Auto 0.1 0.0 - 0.2 X10*3/uL [facility] NRBC Abs Auto 0.000 0.0 - 0.012 X10*3/uL [facility] Blood Venous blood specimen / Unknown 08/22/2025 3:02 PM EDT 08/22/2025 4:05 PM EDT us Ilene Costello [employer] LAB BLOOD ORDERABLES Final Resul t [facility] [address] [place] [address] [phone] documented in this encounter Visit Diagnoses Diagnosis Epigastric pain- Primary Abdominal pain, epigastric PUD (peptic ulcer disease) Peptic ulcer, unspecified site, unspecified as acute or chronic, without mention of hemorrhage, perforation, or obstruction documented in this encounter Additional Health Concerns Assessment Noted Time PHQ-9 Depression Total Score: 9 02/05/20 25 2:00 PM EDT documented as of this encounter Care Teams Grounds Supervisor Relationship Specialty Start Date End Date Colton Nelson MD [address] [place] [phone] PCP - General Internal Medicine 05/04/20 [facility] 05/17/25 documented as of this encounter
[2025-08-22 16:10] LABS: MANUAL DIFF FLAG NO
[2025-08-22 16:26] LABS: Hematocrit 40.6 % (42.0-52.0); Hemoglobin 13.3 g/dl (14.0-18.0); Imm Gran Abs Auto 0.02 X10*3/uL (0.00-0.03); Imm Gran Pct Auto 0.3 % (0.0-0.4); Lymphocytes Absolute Auto 1.2 X10*3/uL (1.2-4.9); Mean Corpuscular HGB Conc 32.8 g/dl (31.0-36.0); Mean Corpuscular Hemoglobin 30.4 pg (27.0-33.0); Mean Corpuscular Volume 92.7 fL (80.0-98.0); NRBC Abs Auto 0.000 X10*3/uL (0.0-0.012); NRBC Pct Auto 0.0 /100WBC (0.0-0.2); Platelet Count 226 X10*3/uL (160-400); Red Blood Count 4.38 X10*6/uL (4.60-5.80); White Blood Count 7.0 X10*3/uL (4.8-10.8)
[2025-08-22 16:51] LABS: Alanine Aminotransferase 28 U/L (0-40); Albumin Level 4.3 g/dL (3.5-5.0); Alkaline Phosphatase 72 U/L (39-117); Anion Gap 13 (12-20); Aspartate Amino Transferase 28 U/L (5-37); Blood Urea Nitrogen 16 mg/dL (9-16); Calcium 9.5 mg/dL (8.4-10.2); Carbon Dioxide 31 mmol/L (22-29); Chloride 101 mmol/L (96-108); Estimated Glomerular Filt Rate > 60; Potassium 4.1 mmol/L (3.3-5.1); Sodium 141 mmol/L (135-145); Total Protein 7.2 g/dL (6.5-8.0)
[2025-08-22 16:57] LABS: Prostate Specific Antigen 3.16 ng/mL (<0.05-4.0)
--- OUTSIDE RECORDS SUMMARY | 2025-08-22 17:02 | XMS_ITS | Encounter Summary ---
Author Organization [email or web address] Address [address] [place] [address] [address] [place] [address] Care Team Providers Care Policy Cancellation Clerk Name Role Phone Colton Nelson MD Primary Care Provide r Reason for Visit * Reason Comments Med Refill Encounter Details Date Type Department Care Team (Late st Contact Info) Description 03/27/[address] [address] Roxi Scott FNP Social History Tobacco Use Types Packs/Day Years [...] Description 09/07/2025 8:00 AM EDT Office Visit [facility] ADULT D[facility] [address] [place] [address] Bennett Yung, KAELA [address] [place] [address] 09/16/2025 11:00 AM EDT Clinical Support [facility] MEDICINE [address] [place] [phone] Maria Isabel Elam RN [address] [place] [address] 09/27/2025 3:00 PM EST Office Visit [facility] MED[facility] [address] [place] [address] Colton Nelson MD [address] [place] [address] 10/28/2025 10:15 AM EST Office Visit [facility] ADULT DENT[facility] [address] [place], [place] [phone] Pearl, Brielle [address] [place] [address] documented as of this encounter Visit Diagnoses Not on filedocumented in this encounter Additional Health Concerns Assessment Noted Time PHQ-9 Depression Total Score: 0 12/17/19 23 10:18 AM EST documented as of this encounter Care Teams Policy Cancellation Clerk Relationship Specialty Start Date End Date Colton [place] [address] PCP - General Internal Medicine 05/04/20 [facility] 05/17/25 documented as of this encounter
--- OUTSIDE RECORDS SUMMARY | 2025-08-22 17:02 | XMS_ITS ---
Author Name Rashawn LYON, Mr. Maureen Antunez Address [address] [place] [address] Phone [phone] [facility] Care Team Providers Care District Wire Chief Name Role Phone Alan Morocho Unavailable [phone] Reason for Referral Not Available Allergies, adverse [...] Pain Assessment - NO pain present (1126F) [facility] [place]2022 Pain Assessment - NO pain present (1126F) [facility] [place] Pain Assessment - NO pain present (1126F) [facility] [place]20[place] Pain Assessment - NO pain present (1126F) [facility] 09[place]2022 Pain Assessment - NO pain present (1126F) [facility]2022 Pain Assessment - NO pain present (1126F) [facility] 09[place]2022 Pain Assessment - NO pain present (1126F) [facility] 09/23/2022 Type 2 diabetes w diabetic peripheral angiopath w/o gangreneType 2 diabetes mellitus with other specified complicationHyperlipidemia, unspecifiedEssential (primary) hypertensionChronic obstructive pulmonary disease, unspecifiedVitamin D deficiency, unspecifiedGastro-esophageal reflux disease without esophagitisMale erectile dysfunction, unspecifiedRestless legs syndrome Pain Assessment - NO pain present (1126F) [facility] 09/23/2022 Pain Assessment - NO pain present (1126F) [facility] 09/[place]/2022 Vital Signs Date of Collection Vitals 2022-09-23 13:16:02 Height - 162.56 cmWe ight - 78.02 kgBody Mass Index (BMI) - 29.52 kg/m2BP Diastolic - 88.0 mm[Hg]BP Systolic - 168.0 mm[Hg]Heart Rate - 62.0 /min Social History Social History Social History Observation Description Effec tive Time Current Smoking Status Former smoker 2025-07-26 11 Sex Male History of Procedures Procedures [...] (do not use for phone, instead use [id number]) [id number] 2022-09-23 No Data Available No Data Availa [...] completed by a nacho and video using [employer] Tablet. Introductory visit with [employer] to establish care. Today, patient has chief complaint of: establishing care.Reviewed Allergies, Medications, Active Medical conditions, past medical/surgical history, Social history. 2022-09-23 Most recent hospital stay(s) or ER visit(s) and precipitating factors: Denies recent ER/hospital visit 2022-09-23 Advance care planbenita blandon discussion. Conversation today with: member; Advance Care PlanDo you have an Advance Care Plan? NoDo you have a Durable Power of Donor Center Technician for Healthcare, or Healthcare Proxy? NoIf so, Who?Code Status: UnknownOther Details of discussion (Who was present, patients description of wishes/goals):
--- OUTSIDE RECORDS SUMMARY | 2025-08-22 17:02 | XMS_ITS | Clinical Summary ---
Author Organization [employer] Address [address] [place] [address] Care Team Providers [facility] Display Builder Name Role Phone Colton Nelson MD Primary Care Provide r Allergies Active Allergy Reactions Criticality Noted Date Comments Hydrochlorothiazide Rash Low 11/09/2010 Lisinopril 06/20/2014 Olmesartan Unknown 11/09/2010 Medications * This document contains information received from the source organization and may not represent a complete record from that organization. lidocaine (Lidoderm) 5 % patch Place 1 patch on the skin if needed each day. Apply 1 patch by transdermal route every day (May wear up to 12 hours) as needed for pain 022 Active hydrocortisone 1 % cream Apply topically every 12 (twelve) hours. Apply by topical route 2 times every day a thin layer to the affected area(s) 021 Active acetaminophen (Tylenol) 500 MG tablet Take 2 tablets by mouth if needed in the morning, at noon, in the evening, and at bedtime for pain. 020 Active Spacer/Aero-Hold ing Chambers (OptiChamber Ebony) device q4h prn Acti ve hydrOXYzine HCl (Atarax) 25 MG tablet TAKE 1 TABLET BY MOUTH THREE TIMES DAILY NEEDED 20 tablet 023 Active ketotifen (Alaway) 0.025 % ophthalmic solution INSTILL 1 DROP BY OPHTHALMIC ROUTE TWICE A DAY INTO THE AFFECTED EYE(S) 5 mL 5 023 Active glucose blood (OneTouch Ultra) test strip TEST BLOOD SUGAR TWICE A DAY 100 each 11 023 Active Blood Glucose Monitoring Suppl (ONE TOUCH ULTRA 2) w/Device kit 1 vial with breakfast, with lunch, and with evening meal. Test 1 times by intradermal route 2 times every day 1 kit 023 Active Ventolin HFA 108 (90 Base) MCG/ACT inhaler INHALE 2 PUFFS BY MOUTH EVERY 4 TO 6 HOURS NEEDED FOR WHEEZING 023 Active fluticasone (Flonase Allergy Relief) 50 MCG/ACT nasal sprayIndications :Seasonal allergies Administer 2 sprays into each nostril 2 times daily. Inhale 2 spray by intranasal route every day in each nostril 16 g 3 024 Active Testosterone 1.62 % gel APPLY 2 PUMPS TOPICALLY ONCE DAILY. ALTERNATE SHOULDER EVERY DAY. 024 Active melatonin 5 MG tablet Take 2 tablets by mouth if needed at bedtime (sleep). 024 Active cholecalciferol VITAMIN D (Vitamin D-3) 50 MCG (2000 UT) tablet TAKE 1 TABLET BY MOUTH EVERY MORNING 90 tablet 3 024 Active Advair HFA 115-21 MCG/ACT inhaler INHALE 2 PUFFS BY MOUTH TWICE DAILY FOR ASTHMA / (for COPD) RINSE MOUTH AFTER USING. 12 g 11 025 Active OneTouch Delica Lancets 33G misc TEST BLOOD SUGAR TWICE A DAY 100 each 11 025 Active glucose blood (OneTouch Ultra) test strip Use to test blood sugar 2 times daily 100 each 11 025 2025 Active rOPINIRole (Requip) 4 MG tablet TAKE 1 TABLET BY MOUTH AT BEDTIME 30 tablet 5 025 Active Diclofenac Sodium 1 % gelIndications:A cute pain of right shoulder Apply to affected area BID PRN lebanese 50 g 1 025 Active albuterol (2.5 MG/3ML) 0.083% nebulizer solutionIndicati ons:Chronic obstructive pulmonary disease, unspecified COPD type (CMS/HCC) ([facility]) INHALE 1 AMPULE USING A NEBULIZER EVERY 4 HOURS NEEDED FOR WHEEZING 90 mL 3 025 Active chlorthalidone (Hygroton) 25 MG tabletIndication s:Essential hypertension TAKE 1 TABLET BY MOUTH EVERY MORNING 30 tablet 3 025 Active sildenafil (Viagra) 100 MG tabletIndication s:Erectile dysfunction due to arterial insufficiency Take 1 tablet (100 mg) by mouth if needed each day for erectile dysfunction. 15 tablet 3 Active amLODIPine (Norvasc) 10 MG tabletIndication s:Primary hypertension TAKE 1 TABLET BY MOUTH EVERY MORNING 90 tablet 1 Active montelukast (Singulair) 10 MG tabletIndication s:Pulmonary emphysema, unspecified emphysema type TAKE 1 TABLET BY MOUTH EVERY MORNING 90 tablet 1 Active glipiZIDE XL (Glucotrol XL) 2.5 MG 24 hr tablet TAKE 1 TABLET BY MOUTH EVERY MORNING BEFORE BREAKFAST FOR BLOOD SUGAR > 150 90 tablet 1 Active simvastatin (Zocor) 10 MG tablet TAKE 1 TABLET BY MOUTH EVERY EVENING 90 tablet 1 Active metFORMIN (Glucophage) 1000 MG tabletIndication s:Type 2 diabetes mellitus without complication, without long-term current use of insulin (HCC) TAKE 1 TABLET BY MOUTH TWICE DAILY IN THE MORNING AND IN THE EVENING WITH FOOD 180 tablet 1 Active oxyCODONE-acetam inophen (Percocet) 5-325 MG tabletIndication s:Lumbar disc herniation TAKE 1 TABLET BY MOUTH EVERY 6 HOURS NEEDED FOR SEVERE PAIN 20 tablet Active naloxone (Narcan) 4 mg/0.1 mL nasal spray Administer 1 spray (4 mg) into affected nostril(s) if needed for opioid reversal. [place] 0.1 milliliter by intranasal route in 1 nostril may repeat dose every 2-3 minutes as needed alternating nostrils with each dose 2 each 1 Active pantoprazole (ProtoNix) 40 MG EC tabletIndication s:Epigastric pain,PUD (peptic ulcer disease) Take 1 tablet (40 mg) by mouth before breakfast. Do not crush, chew, or split. 30 tablet 2 025 2025 Active sucralfate (Carafate) 1 g tablet Take 1 tablet (1 g) by mouth before breakfast, before lunch, and before evening meal for 10 days. 30 tablet 025 2024 Active docusate sodium (Colace) 100 MG capsule Take 1 capsule (100 mg) by mouth if needed each day for constipation. 30 capsule 025 2024 Active naloxone (Narcan) 4 mg/0.1 mL nasal spray Administer 0.1 mL into affected nostril(s). [place] 0.1 milliliter by intranasal route in 1 nostril may repeat dose every 2-3 minutes as needed alternating nostrils with each dose 022 2024 Discontinued(R eorder (will not trigger notification to Pharmacy)) aspirin 81 MG EC tablet take 1 tablet (81MG) by oral route every day 021 2024 Discontinued(S nithin effects) omeprazole (PriLOSEC) [address] capsule TAKE 1 CAPSULE BY MOUTH EVERY MORNING 90 capsule 3 024 2024 Discontinued(I neffective) glipiZIDE XL (Glucotrol XL) 2.5 MG 24 hr tablet TAKE 1 TABLET BY MOUTH EVERY MORNING BEFORE BREAKFAST FOR BLOOD SUGAR > 150 90 tablet 1 2024 Discontinued metFORMIN (Glucophage) 1000 MG tabletIndication s:Type 2 diabetes mellitus without complication, without long-term current use of insulin (HCC) TAKE 1 TABLET BY MOUTH TWICE DAILY IN THE MORNING AND IN THE EVENING WITH FOOD 180 tablet 1 2024 Discontinued simvastatin (Zocor) 10 MG tablet TAKE 1 TABLET BY MOUTH EVERY EVENING 90 tablet 1 2024 Discontinued amLODIPine (Norvasc) 10 MG tabletIndication s:Primary hypertension TAKE 1 TABLET BY MOUTH EVERY MORNING 90 tablet 1 2024 Discontinued montelukast (Singulair) 10 MG tabletIndication s:Pulmonary emphysema, unspecified emphysema type TAKE 1 TABLET BY MOUTH EVERY MORNING 90 tablet 1 2024 Discontinued oxyCODONE-acetam inophen (Percocet) 5-325 MG tabletIndication s:Lumbar disc herniation Take 1 tablet by mouth every 6 (six) hours if needed for severe pain. 20 tablet 025 2024 Discontinued acetaminophen (Tylenol 8 Hour) 650 MG ER tablet Take 1 tablet (650 mg) by mouth every 8 (eight) hours if needed for moderate pain for up to 10 days. Do not crush, chew, or split. 15 tablet 025 2024 Active Problems Problem Noted Date Diagnosed Date Epigastric pain 08/22/2025 Assessment & Plan (08/22/2025 2:51 PM EDT): Orders: CBC auto differential; Future Comprehensive Metabolic Panel; Future pantoprazole (ProtoNix) 40 MG EC tablet; Take 1 tablet (40 mg) by mouth before breakfast. Do not crush, chew, or split. Sed Rate by Modified Westergren; Future C-reactive Protein; Future Referral to Gastroenterology; Future PUD (peptic ulcer disease) 08/22/2025 Assessment & Plan (08/22/2025 2:51 PM EDT): Orders: pantoprazole (ProtoNix) 40 MG EC tablet; Take 1 tablet (40 mg) by mouth before breakfast. Do not crush, chew, or split. Sed Rate by Modified Westergren; Future C-reactive Protein; Future Referral to Gastroenterology; Future Sebaceous cyst 04/14/2025 Assessment & Plan (04/14/2025 3:48 PM EDT): Patient with small sebaceous cyst on his back, pt would like to have it excised Acute pain of right shoulder 04/14/2025 Assessment & Plan (04/14/2025 3:51 PM EDT): Patient with c/o new onset of right shoulder pain No hx of trauma on exam full ROM Plan: Plain films, PT eval Long-term current use of opiate analgesic 2024 Staining (discoloration) of teeth 03/18/2025 Anxiety 02/04/2025 Assessment & Plan (04/14/2025 3:34 PM EDT): Counseling done today [facility] was called, services were offered and also he was referred for psychiatry services Visit with Jose Le pending Assessment & Plan (02/04/2025 4:15 PM EDT): Counseling done today [facility] was called, services were offered and also he was referred for psychiatry services Forgetfulness 02/04/2025 Assessment & Plan (04/14/2025 3:31 PM EDT): Patient here for a follow up He is showing clinical signs of dementia, Initial blood work unremarkable done to rule out reversible causes for the symptoms Mini-Mental status Please review pt's MOCA mental exam. Pt scored 17/30 points. Patient was referred to the [facility] Clinic at [facility] wait list is 1 yr also referred today to neurology today Assessment & Plan (02/04/2025 4:16 PM EDT): [...] Carpal tunnel syndrome on both sides 10/05/2024 Obesity (BMI 30-39.9) 10/05/2024 Assessment & [...] equivalent combination of moderate- and vigorous-intensity activity Incomplete tear of right rotator cuff 10/05/2024 Assessment & Plan (11/11/2024 11:23 AM EST): Under the care of ortho, received a steroid injection 10/11/2024 S/P arthroscopic knee surgery 10/05/2024 Ill-fitting dentures 07/30/2024 Tear of right rotator cuff 05/11/2024 Assessment & Plan (05/11/2024 1:49 PM EDT): Under the care of Ortho, last seen 04/26/2024 Partially edentulous mandible 03/30/2024 Gingival bleeding 10/27/2023 ALLY on CPAP 09/18/2023 Assessment & Plan (01/27/2024 1:19 PM EST): ALLY well managed on CPAP C/o dry mouth with nasal mask, seen by [employer] Rep[employer]r 01/22/2024 who gave him a prescription for full face mask AIRFIT 30 Assessment & Plan (09/18/2023 8:22 AM EDT): ALLY well managed on CPAP C/o dry mouth with nasal mask, seen by Electric [employer] Line Rep[employer]r 09/08/2023 who gave him a prescription for [...] without urinary obstruction 10/26/2022 Assessment & Plan (04/14/2025 3:20 PM EDT): Under the care of Urology, last seen 03/29/2025 Assessment & Plan (11/11/2024 11:21 AM EST): [...] he has yet to hear from the [facility] office, I have my MA once again to look jnto it Pancreatic screening guidelines are emerging Essential hypertension 10/26/2022 Assessment & Plan (04/14/2025 3:34 PM EDT): Here for a f/u regarding his HTN BP stable He is on a regimen of: Norvasc 10 mg po daily, and Chlortalidone 25 mg 1 tab po daily, He stopped taking Losartan because he feels it does not agree with him, He has a medbox Most recent electrolytes, Bun and Creatinine done on: Lab Results Component Value Date NA 141 02/04/2025 NA 142 02/04/2025 K 4.0 02/04/2025 K 4.0 02/04/2025 CL 104 02/04/2025 CL 104 02/04/2025 BUN 9 02/04/2025 BUN 8 (L) 02/04/2025 CREATININE 0.81 02/04/2025 CREATININE 0.87 02/04/2025 patient advised to adhere to a low sodium diet, encouraged about medication compliance, counseled about weight loss. Plan: Follow up 4 months Assessment & Plan (02/04/2025 4:14 PM EDT): [...] obstructive lung disease 08/14/2012 Assessment & Plan (04/14/2025 3:19 PM EDT): Pt last seen by his Electric Power Line Repairer Dr Denney 03/09/2025 He is on Advair HFA 2 puffs BID and instructed to use Albuterol PRN only Assessment & Plan (12/21/2024 10:06 AM EST): Pt last seen by his Electric [employer] Line Rep[employer]r Dr Denney 11/11/2024 He is on Advair HFA 2 puffs BID and instructed to use Albuterol PRN only Assessment & Plan (11/11/2024 11:25 AM EST): Pt last seen by his Electric [employer] Line Repairer Dr Denney 11/11/2024 He is on Advair HFA 2 puffs BID and instructed to use Albuterol PRN only Assessment & Plan (05/11/2024 1:44 PM EDT): Pt last seen by his Electric [employer] Line Rep[employer]r Dr Denney 01/22/2024 He is on Advair [...] EST): Pt here recently seen by his Electric [employer] Line Rep[employer]r Dr Denney 01/22/2024 He is on Advair HFA 2 puffs BID and instructed to use Albuterol PRN only Assessment & Plan (09/18/2023 8:20 AM EDT): Pt here with c/o asthma acting up recently , c/o more wheezing . Recently seen by his Electric [employer] Line Repairer Dr Denney 09/08/2023 who gave him a [...] mellitus, type II 08/14/2012 Assessment & Plan (04/14/2025 3:29 PM EDT): Pt here for a f/u DM remains controlled He is on a regimen of: Metformin 1000 mg po BID and Glipizide XL 2.5 mg po daily Hgb A1c 02/04/2025: 7.1 from 6.8 from 6.6 Eye exam was last done on: 03/30/2019 Microalbumin checked on: 04/19/2022 was: 0.7 Pt is not on an ARB Foot check risk of zero Pt reports compliance with Asa 81 mg po daily Pt advised to: adhere to diabetic diet check your blood sugars regularly check your feet on a daily basis Assessment & Plan (12/21/2024 10:06 AM EST): [...] disease 08/14/2012 Hyperlipidemia 08/14/2012 Assessment & Plan (04/14/2025 3:22 PM EDT): Pt here for a f/u Patient with elevated lipids. Most recent lipid profile from: Lab Results Component Value Date TRIG 84 12/29/2024 TRIG 97 02/13/2023 CHOL 131 12/29/2024 LDLCHOLCAL 58 12/29/2024 HDL 57 12/29/2024 Currently on a regimen of: Simvastatin 10 mg po qhs Plan: continue with current regimen. advised to try to adhere to a low cholesterol diet, counseled and educated about diet and exercise, Patient encouraged to come up with a personal goal for weight loss. Assessment & Plan (12/21/2024 10:08 AM EST): [...] on MS contin. Under the care of [facility]. Last note 08/2023 Pt requesting a handycap [...] has been seen in the past at [facility]. Pt requesting a handycap placard Assessment & [...] has been seen in the past at [facility]. Restless legs 08/14/2012 Assessment & Plan (12/16/2022 [...] 025 Osteoarthritis of left knee 10/05/2024 12/21/2024 Pneumonia 10/05/2024 04/14/2025 Left shoulder tendonitis 10/05/2024 Tendonitis of left rotator cuff 10/05/2024 12/21/2024 Sprain of left little finger 10/05/2024 12/21/2024 Pneumonia due to influenza A virus 03/04/2024 04/14/2025 Assessment & Plan (03/04/2024 4:19 PM EDT): Now resolved Encounters * This document contains information received from the source organization and may not represent a complete record from that organization. Date Type Department Care Team Description 08/22/2025 1:40 PM EDT Office Visit [facility] [address] [place] [phone] Epigastric pain (Primary Dx); PUD (peptic ulcer disease) 08/22/2025 Orders Only GENERIC EXTERNAL DATA DEPARTMENT Provider, Generic External Data 08/22/2025 Travel 08/10/2025 Refill [facility] [address], [place] [phone] Colton Nelson MD Lumbar disc herniation 08/05/2025 Refill [facility] [address] [place] [address] Colton Nelson MD Chronic obstructive pulmonary disease, unspecified COPD type ([facility]/HCC) 07/31/2025 Refill [facility] [address] [place] [phone] Colton Nelson MD Primary hypertension; Pulmonary emphysema, unspecified emphysema type ([facility]/HCC); Type 2 diabetes mellitus without complication, without long-term current use of insulin ([facility]) 07/21/2025 Telephone [facility] [address] [place] [phone] Colton Nelson MD Appointment Confirmation 07/18/2025 2:30 PM EDT Office Visit [facility] [address] [place] [address] Saldana-Oates, Shiela, DDS Irreversible pulpitis (Primary Dx); 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 Orders Only GENERIC EXTERNAL DATA DEPARTMENT Provider, Generic External Data 06/23/2025 Telephone [facility] [address] [place] [address] Bennett Yung DMD status of appts 06/09/2025 Refill [facility] [address] [place] [address] Colton Nelson MD Erectile dysfunction due to arterial insufficiency 06/01/2025 Refill [facility] [address] [place] [address] Colton Nelson MD Essential hypertension 05/30/2025 2:00 PM EDT Telemedicine [facility] [address] [place] [address] Maria Isabel Elam RN Chronic low back pain, unspecified back pain laterality, unspecified whether sciatica present 05/30/2025 Refill [facility] [address] [place] [address] Maria Isabel Elam RN Lumbar disc herniation 05/30/2025 Travel from Last 3 Months Immunizations Immunization Administration Dates Next Due Influenza High-dose Quadriva [...] Mass Index 29.95 08/22/2025 2:14 PM EDT Plan of Treatment Upcoming Encounters Date Type Department Care Team (Late st Contact Info) Description 09/07/2025 8:00 AM EDT Office Visit [facility] [address] [place] [address] Bennett Yung, KAELA [address] [place] [address] 09/16/2025 11:00 AM EDT Clinical Support [facility] [address] [place] [phone] Maria Isabel Elam, ELEAZAR [address] [place] [address] 09/27/2025 3:00 PM EST Office Visit [facility] [address] [place] [phone] Colton Nelson MD [address] [place] [address] 10/28/2025 10:15 AM EST Office Visit [facility] [address] [place] [address] Brielle Kang [address] [place] [address] Health Maintenance Due Date Last Done Comments Eye Exam 1955 RSV Patients and Patients Aged 60 years or older (1 - 1-dose 75+ series) 2022 Diabetes: Hemoglobin A1C 05/07/2025 025, 11/11/2024, 08/12/2024, Additional history exists COVID-19 Vaccine ( season) 2025 08/12/2024, 10/16/2021, 02/28/2021, Additional history exists Influenza Vaccine (#1) 2025 , 09/05/2021, 08/24/2020, Additional history exists Depression Monitoring 08/07/2025 02/04/2025, 025 Diabetes: Foot Exam 08/12/2025 08/12/2024, 08/12/2024, 08/12/2024, Additional history exists Dental Oral Exam 09/18/2025 03/18/2025, , 02/17/2023 Dental Prophylaxis 09/18/2025 03/18/2025, 1 , 10/27/2023, Additional history exists Alcohol/Substance Use Screening 11/11/2025 11/11/2024 SDOH Screening 12/09/2025 12/09/2024 Lipid Panel 12/29/2025 12/29/2024, 01/23, 04/19/2022, Additional history exists Diabetes: Urine Protein Screening 02/04/2026 02/04/2025, 12/29/2024, 04/19/2022, Additional history exists Dental X-Ray: Full Mouth 02/18/2026 02/17/2023 Dental X-Ray: Bitewings 03/19/2026 03/18/20, 09/09/2024, 02/17/2023 Tobacco Screening 07/18/2026 07/18/2025 DTaP/Tdap/Td Vaccines (2 - Td or Tdap) 11/25/2028 11/25/2018, 10/14/2013, 05/10/2011 Pneumococcal Vaccine: 50+ Years Completed 12/04/2015, 12/04/2015, 02/05/2013, Additional history exists Colonoscopy Discontinued 08/18/2020, 08/18/2020 Colorectal Cancer Screening Discontinued Hepatitis C Screening Completed 04/19/2022 Zoster Vaccines Completed 07/24/2023, 04/25, 12/04/2015 CT Colonography Discontinued FIT DNA/Cologuard Discontinued FIT [...] patient's age to complete this topic Meningococcal B Vaccine Aged Out No l onger eligible based on patient's age to complete [...] Procedure Name Priority Date/Time Associated Diagnosis Comments PSA, TOTAL Routine 08/22/2025 3:02 PM EDT C-REACTIVE PROTEIN Routine 08/22/2025 3: 02 PM EDT Epigastric pain PUD (peptic ulcer disease) COMPREHENSIVE METABOLIC PANEL Routine 08/22/2025 3:02 PM EDT Epigastric pain CBC WITH AUTO DIFFERENTIAL Routine 08/22/2025 3:02 PM EDT Epigastric pain CASE PRESENTATION, DETAILED AND EXTENSIVE TREATMENT PLANNING Routine 07/18/2025 2:30 PM EDT 21 ENDODONTIC THERAPY, PREMOLAR TOOTH Routine 07/18/2025 2:30 PM EDT GROSS AND MICROSCOPIC LEVEL 3 Routine 07/05/2025 1:30 PM EDT PROPHYLAXIS - ADULT Routine 03/18/2025 8 :00 AM EDT Dental calculus Gingival recession, generalized Periodontal disease Staining (discoloration) of teeth BITEWINGS - 4 RADIOGRAPHIC IMAGES Routine 03/18/2025 8:00 AM EDT Erosion of teeth, limited to enamel Fractured dental sikhism with loss of material Dental calculus Gingival recession, generalized Periodontal disease Staining (discoloration) of teeth PERIODIC ORAL EVALUATION - ESTABLISHED PATIENT Routine 03/18/2025 8:00 AM EDT ALBUMIN, RANDOM URINE W/CREATININE Routine 02/04/2025 3:02 PM EDT Type 2 diabetes mellitus without complication, without long-term current use of insulin ([facility]/HCC) HEMOGLOBIN A1C Routine 02/04/2025 3:02 PM EDT Forgetfulness LIPID PANEL, STANDARD Routine 12/29/2024 10:54 AM EST Essential hypertension Type 2 diabetes mellitus without complication, without long-term current use of insulin ([facility]) INTRAORAL - COMPLETE SERIES OF RADIOGRAPHIC IMAGES Routine 02/17/2023 10:00 AM EDT Periodontal disease Dental calculus ZZZ HISTORICAL HEPATITIS C AB W/REFL TO HCV RNA, QN, PCR Routine 04/19/2022 8:52 AM EDT HM COLONOSCOPY Routine 08/18/2020 from Last 3 Months or Most Recently Relevant to Health Maintenance Results * (ABNORMAL) CBC auto differential (08/22/2025 3:02 PM EDT) White Blood Count 7.0 4.8 - 10.8 X10*3/uL [facility] Red Blood Count 4.38(L) 4.60 - 5.80 X10*6/uL [facility] Hemoglobin 13.3(L) 14.0 - 18.0 g/dl [facility] Hematocrit 40.6(L) 42.0 - 52.0 % [facility] Mean Corpuscular Volume 92.7 80.0 - 98.0 fL [facility] Mean Corpuscular Hemoglobin 30.4 27.0 - 33.0 pg [facility] Mean Corpuscular HGB Conc 32.8 31.0 - 36.0 g/dl [facility] Red Cell Distribution Width 12.8 11.0 - 16.0 % [facility] Platelet Count 226 160 - 400 X10*3/uL [facility] Mean Platelet Volume 10.2 9.4 - 12.4 fL [facility] Neutrophils Percent Auto 73.6(H) 45 - 73 % [facility] Imm Gran Pct Auto 0.3 0.0 - 0.4 % [facility] Lymphocytes Percent Auto 16.6(L) 20 - 40 % [facility] Monocytes Percent Auto 7.3 2 - 11 % [facility] Eosinophils Percent Auto 1.3 0 - 4 % [facility] Basophils Percent Auto 0.9 0 - 2 % [facility] NRBC Pct Auto 0.0 0.0 - 0.2 /100WBC [facility] Neutrophils Absolute Auto 5.2 2.0 - 8.3 x10*3/uL [facility] Imm Gran Abs Auto 0.02 0.00 - 0.03 X10*3/uL [facility] Lymphocytes Absolute Auto 1.2 1.2 - 4.9 X10*3/uL [facility] Monocytes Absolute Auto 0.5 0.1 - 1.2 X10*3/uL [facility] Eosinophils Absolute Auto 0.1 0.0 - 0.4 X10*3/uL [facility] Basophils Absolute Auto 0.1 0.0 - 0.2 X10*3/uL [facility] NRBC Abs Auto 0.000 0.0 - 0.012 X10*3/uL [facility] Blood Venous blood specimen / Unknown 08/22/2025 3:02 PM EDT 08/22/2025 4:05 PM EDT us Ilene Costello NP LAB BLOOD ORDERABLES Final Resul t [facility] [address] [place] [address] [phone] * C-reactive Protein (08/22/2025 3:02 PM EDT) C Reactive Protein 0.22 < or = 0.50 mg/dL [facility] Blood Venous blood specimen / Unknown 08/22/2025 3:02 PM EDT 08/22/2025 4:05 PM EDT us Ilene Costello [employer] LAB BLOOD ORDERABLES Final Resul t Performing Organization Address City/[facility]/ZIP Co de Phone Number [facility] [address] [place] [phone] * PSA,Total (08/22/2025 3:02 PM EDT) Prostate Specific Antigen 3.16 <0.05 - 4.0 ng/mL [facility] Comment:PSA methodology: Daniel Espinal i ChemiluminescentMicroparticle Immunoassay (CMIA) 08/22/2025 3:02 PM EDT 08/22/2025 4:05 PM EDT us Generic External Data Provider LAB BLOOD ORDERAB LES Final Result Performing Organization Address City/[facility]/ZIP Co de Phone Number [facility] [address] [place] [phone] * (ABNORMAL) Comprehensive Metabolic Panel (08/22/2025 3:02 PM EDT) Sodium 141 135 - 145 mmol/L [facility] [facility] Potassium 4.1 3.3 - 5.1 mmol/L [facility] Chloride 101 96 - 108 mmol/L [facility] Carbon Dioxide 31(H) 22 - 29 mmol/L [facility] Anion Gap 13 12 - 20 [facility] Urea Nitrogen (BUN) 16 9 - 16 mg/dL [facility] Creatinine, Serum 1.05 0.5 - 1.4 mg/dL [facility] Estimated Glomerular Filt Rate >60 [facility] Comment:Chronic Kidney Disea se: Estimated GFR < 60 mL/min/[id number] Kidney Disease: Estimated GFR < 15 mL/min/1.73m2 Glucose 248(H) 60 - 115 mg/dL [facility] Calcium 9.5 8.4 - 10.2 mg/dL [facility] Bilirubin, Total 0.5 0.0 - 1.0 mg/dL [facility] Aspartate Amino Transferase 28 5 - 37 U/L [facility] Alanine Aminotransferase 28 0 - 40 U/L [facility] Total Protein 7.2 6.5 - 8.0 g/dL [facility] Albumin Level 4.3 3.5 - 5.0 g/dL [facility] Alkaline Phosphatase 72 39 - 117 U/L [facility] Blood Venous blood specimen / Unknown 08/22/2025 3:02 PM EDT 08/22/2025 4:05 PM EDT us Ilene Costello NP LAB BLOOD ORDERABLES Final Resul t [facility] [address] [place] [phone] * Gross and Microscopic Level 3 (07/05/2025 1:30 PM EDT) 07/05/2025 1:30 PM EDT 07/06/2025 7:56 AM EDT Romi [facility] - 07/07/2025 3:20 PM EDT ----- ------- Name: Jose Ramon Feliciano Age/Sex: 80/M : 1945 Unit#: [id number] Attend Dr: Lambert Rojas MD Re07/05/25 Status: DEP REF Location: [facility] Disch: ----- ------- SPEC : [id number] RECD: 07/06/25 STATUS: KANE RODRIGUEZ NUM: [id number] JOE: 07/05/[address] [facility] [address]: Lambert Rojas MD ENTERED: 07/06/25 SP TYPE: Surgical OTHR DR: Colton Edward MD ORDERED: Gross Micro L3 Diagnosis Skin, left upper back, excision: Epidermal inclusion cyst. Clinical History Cyst left upper back Microscopic Description Microscopic sections reviewed. Material Received Cyst left upper back Gross Description Received in formalin labeled cyst left upper back is a 1.8 x 0.7 cm ellipse of slightly puckered and retracted crowell skin and subcutaneous tissue excised to a maximum depth of 1.0 cm. The skin surface displays an eccentric 0.15 cm in diameter prominent, dilated pore containing walker-crowell keratotic material. The margins are inked and the specimen is serially sectioned to reveal a subjacent ruptured walker-crowell cyst measuring 0.8 x 0.5 x 0.45 cm containing walker-white and crowell-brown keratotic material. Bundle Tier sections are submitted in a cassette labeled A1. CEDS IHC S/NG Disclaimer NOTE: Unless otherwise stated, all tissue is formalin-fixed and paraffin-embedded. Some or all of the immunohistochemical tests reported herein may have been developed and their performance characteristics determined by [facility]. They have not been cleared or approved by the U.S. Food and Drug Administration (FDA). However, the FDA has determined that such clearance or approval is not necessary. This laboratory is certified under the Clinical Laboratory Improvement Amendments of 1988 (CLIA) as qualified to perform high complexity clinical laboratory testing. Copies To: Colton Edward MD [address] [address] CONTINUED ON NEXT PAGE ----- ------- Name: Jose Ramon Feliciano Age/Sex: 80/M : 1945 Unit#: [id number] Attend Dr: Lambert Rojas MD Re07/05/25 Status: DEP REF Location: [facility] Disch: ----- ------- SPEC : [id number] RECD: 07/06/25 STATUS: KANE RODRIGUEZ NUM: [id number] JOE: 07/05/[address] [facility] [address]: Lambert Rojas MD ENTERED: 07/06/253 SP TYPE: Surgical OTHR DR: Colton Edward MD ORDERED: Gross Micro L3 Copies To: (Continued) Lambert Rojas MD [facility] [address] [place] [phone] ----- ------- Signed (signature on file) Ekaterina Padilla MD 07/07/25 1520 ----- ------- END OF REPORT Generic External Data Provider LAB CYTOLOGY ORDE RABLES Final Result Performing Organization Address [facility] Co de Phone Number [facility] [address] [place] [address] [phone] * Albumin, Random Urine W/Creatinine (02/04/2025 3:02 PM EDT) Creatinine, Urine 157.11 mg/dL [facility] Microalbumin Urine 12.0 mg/L [facility] Microalbum Creatinine Ratio Ur 7.6 <30 ug/mg cr [facility] Comment:Albumin/Creatinine R atio Reference Ranges: Normal: < 30 ug/mg creatinine Microalbuminuria: 30 - 300 ug/mg creatinineClinical Albuminuria: > 300 ug/mg creatinine Urine (Urine, Random) 02/04/2025 3:02 PM EDT 02/04/2025 4:10 PM EDT Colton De Leon MD LAB URINE ORDERABLES Final Result Performing Organization Address [facility] de Phone Number [facility] [address] [place] [address] [phone] * (ABNORMAL) Hemoglobin A1c (02/04/2025 3:02 PM EDT) Hemoglobin A1c 7.1(H) <6.0 % [facility] Comment:Hemoglobin A1C Refer ence Range Adults: 4.8 - 6.0 % Non diabetic: < 6.0 % Goal: < 7.0 %Additional Action Suggested: > 8.0 %Note: Hemoglobin A1c results are invalid for patients with abnormal amounts of HbF. Blood transfusions may impact the HbA1c concentration in the patient sample. Estimated Average Glucose 157 mg/dL [facility] Comment:eAG = Estimated ave rage glucose which is %A1C expressed asaverage glucose, using the formula of the [id number] Glucose study (ADAG), Diabetes Care, Vol.31,#8,Jun. 2007 Blood Venous blood specimen / Unknown 02/04/2025 3:02 PM EDT 02/04/2025 4:20 PM EDT us Constance Poole MD LAB BLOOD ORDERABLES Final Result Performing Organization Address [facility] Co de Phone Number [facility] [address] [place] [address] [phone] * Lipid Panel, Standard (12/29/2024 10:54 AM EST) Triglycerides 84 <150 mg/dL [facility] Comment:Desirable Triglyceri de: less than 150 mg/dLBorderline High Triglyceride 150-199 mg/dLHigh Triglyceride: 200-499 mg/dLVery High Triglyceride: greater than or equal to 5OO mg/dL Cholesterol 131 <200 mg/dL [facility] Comment:Desirable Cholestero l: less than 200 mg/dLBorderline High Cholesterol: 200-239 mg/dLHigh Cholesterol: greater than 239 mg/dL LDL Cholesterol Calculated 58 <100 mg/dL [facility] Comment:Desirable LDL: less than 100 mg/dLNear Optimal/Above Optimal LDL: 110- 129 mg/dLBorderline High LDL: 130-159 mg/dLHigh LDL: 160-189 mg/dLVery High LDL: greater than or equal to 190 mg/dL HDL Cholesterol 57 >40 mg/dL [facility] Comment:Desirable HDL: great er than 40 mg/dL Note: This HDL assay may give artificially low results in patients with liver disease. Blood Venous blood specimen / Unknown 12/29/2024 10:54 AM EST 12/29/2024 12:59 PM EST us Colton De Leon MD LAB BLOOD ORDERABLES Final Result [facility] [address] [place] [address] [phone] * HEPATITIS C AB W/REFL TO HCV RNA, QN, PCR (04/19/2022 8:52 AM EDT) HEPATITIS C ANTIBODY NON-REACT [facility] NON-REACT [facility] INDEX 0.02 <1.00 [facility] Comment: HCV antibody was non-reactive. There is no laboratory evidence of HCV infection. In most cases, no further action is required. However, if recent HCV exposure is suspected, a test for HCV RNA (test code 74834) is suggested. For additional information please refer to http://education.Risk Ident/faq/PVF94m7 (This link is being provided for informational/ educational purposes only.) 04/19/2022 8:52 AM EDT Colton De Leon MD HISTORICAL/NON ORDERA BLE LABS Final Result Performing Organization Address [facility] Co de Phone Number [facility] [address] * Colonoscopy (08/18/2020) Colonoscopy Normal Normal 08/18/2020 Narrative Jacquelin Chiu - 08/18/2020 9:26 AM EDT Recommended 10 year follow up Historical Provider HEALTH MAINTENANCE Final Result from Last 3 Months or Most Recently Relevant to Health Maintenance Insurance [facility] [employer] OPT[employer] (O D-SNP) DENTAL [facility] Advance Directives Documents on File Type Date Recorded Patient Bundle Tier Expl anation Advance Directives and Living Will 04/27/2025 2:02 PM Health Care Proxy Advance Directives and Living Will 04/20/2025 2:32 PM Health Care Proxy Advance Directives and Living Will 02/06/2024 8:49 AM Health Care Proxy Care Teams [employer] Display Builder Relationship Specialty Start Date End Date Colton Nelson MD [address] [place] [address] [place] [address] PCP - General Internal Medicine 05/04/20 [facility] 05/17/25
--- OUTSIDE RECORDS SUMMARY | 2025-08-22 17:02 | XMS_ITS | Encounter Summary ---
Author Organization [employer] Address [address] [facility] 7[address] [place] [address] Care Team Providers Care Wastewater Treatment Operator Name Role Phone Colton Nelson MD Primary Care Provide r Reason for Visit * Reason Comments Med Refill Encounter Details Date Type Department Care Team (Late st Contact Info) Description 04/17/2023 Refill [facility] MED & PEDS [address] [place] [address] Colton Nelson MD [address] [place] [address] Social History Tobacco Use Types Packs/Day Years [...] Description 09/07/2025 8:00 AM EDT Office Visit [facility] ADULT DENTAL 230 [facility] [place] [address] Bennett Yung, DMD 230 [place] [address] 09/16/2025 11:00 AM EDT Clinical Support [facility] MEDICINE [address] [place] [address] Maria Isabel Elam, RN 505 [place] [address] 09/27/2025 3:00 PM EST Office Visit [facility] MEDICINE [address] [place] [address] Colton Nelson MD [address] [place] [address] 10/28/2025 10:15 AM EST Office Visit [facility] ADULT DENTAL [address] [place] [address] Brielle Kang [address] [place] [address] documented as of this encounter Visit Diagnoses Not on filedocumented in this encounter Additional Health Concerns Assessment Noted Time PHQ-9 Depression Total Score: 0 12/17/19 23 10:18 AM EST documented as of this encounter Care Teams Wastewater Treatment Operator Relationship Specialty Start Date End Date Colton Nelson MD [address] [place] [phone] PCP - General Internal Medicine 05/04/20 [facility] 05/17/25 documented as of this encounter
--- OUTSIDE RECORDS SUMMARY | 2025-08-22 17:02 | XMS_ITS | Encounter Summary ---
Author Organization [employer] Address 75 [facility] 7t [place] [address] Care Team Providers Care Campaign Management Senior Manager Name Role Phone Colton Nelson MD Primary Care Provide r Reason for Visit * Reason Comments Med Refill Encounter Details Date Type Department Care Team ([facility] st Contact Info) Description 10/09/2023 Refill [facility] CHC MED & PEDS [address] [place], [place] [phone] Gudelia Flores FNP 505 [place], [place] [phone] Social History Tobacco Use Types Packs/Day Years [...] Description 09/07/2025 8:00 AM EDT Office Visit [facility] ADULT DENTAL 230 [place] [address] Bennett Yung DMD [address] [place] [address] 09/16/2025 11:00 AM EDT Clinical Support [facility] MEDICINE [address] [place] [address] Maria Isabel Elam, RN 505 [place] [address] 09/27/2025 3:00 PM EST Office Visit [facility] MEDICINE [address] [place] [address] Colton Nelson MD [address] [place] [address] 10/28/2025 10:15 AM EST Office Visit [facility] ADULT DENTAL [address] [place] [address] Brielle Kang [address] [place] [address] documented as of this encounter Visit Diagnoses Not on filedocumented in this encounter Additional Health Concerns Assessment Noted Time PHQ-9 Depression Total Score: 0 12/17/19 23 10:18 AM EST documented as of this encounter Care Teams Campaign Management Senior Manager Relationship Specialty Start Date End Date Colton Nelson MD [address] [place] [address] PCP - General Internal Medicine 05/04/20 [facility] 05/17/25 documented as of this encounter
--- OUTSIDE RECORDS SUMMARY | 2025-08-22 17:02 | XMS_ITS | Encounter Summary ---
Author Organization [employer] Address [address] [place] [address] [address] [place] [address] Care Team Providers Care Swatch Paster Name Role Phone Colton Nelson MD Primary Care Provide r Encounter Details Date Type Department Care Team (Latest Contact Info) Description 08/09/2019 Abstract [facility] CONVERSIONS Dental, Provider, DDS Social [...] Description 09/07/2025 8:00 AM EDT Office Visit [facility] ADULT DENTAL [address] [place] [address] Bennett Yung, KAELA [address] [place] [address] 09/16/2025 11:00 AM EDT Clinical Support [facility] MEDICINE [address] [place] [phone] Maria Isabel Elam RN 505 [place] [address] 09/27/2025 3:00 PM EST Office Visit [facility] MEDICINE [address] [place] [address] Colton Nelson MD 230 [place] [address] 10/28/2025 10:15 AM EST Office Visit [facility] ADULT DENTAL [address] [place], [place] [phone] Brielle Kang [address] [place], [place] [phone] documented as of this encounter Visit Diagnoses Not on filedocumented in this encounter Care Teams Swatch Paster Relationship Specialty Start Date End Date Colton Nelson MD 230 [place] [address] PCP - General Internal Medicine 05/04/20 [facility] 05/17/25 documented as of this encounter
--- OUTSIDE RECORDS SUMMARY | 2025-08-22 17:02 | XMS_ITS | Encounter Summary ---
Author Organization [employer] Address 75 [facility] 7[address] [place] [address] Care Team Providers Care Taper/Finisher Name Role Phone Colton Nelson MD Primary Care Provide r Reason for Visit * Reason Comments Med Refill Encounter Details Date Type Department Care Team (Late st Contact Info) Description 04/09/2023 Refill [facility] CHC MED & PEDS [address] [place] [address] Colton Nelson MD [address] [place] [address] Social History Tobacco Use Types Packs/Day Years [...] 09/07/2025 8:00 AM EDT Office Visit [facility] ADULT DENTAL 230 [place] [address] Bennett Yung, DMD 230 [place] [address] 09/16/2025 11:00 AM EDT Clinical Support [facility] MEDICINE 230 [place] [address] Maria Isabel Elam, RN [address] [place] [address] 09/27/2025 3:00 PM EST Office Visit [facility] [address] [place] [address] Colton Nelson MD [address] [place] [address] 10/28/2025 10:15 AM EST Office Visit [facility] ADULT DENTAL [address] [place] [address] Brielle Kang [address] [place] [address] documented as of this encounter Visit Diagnoses Not on filedocumented in this encounter Additional Health Concerns Assessment Noted Time PHQ-9 Depression Total Score: 0 12/17/19 23 10:18 AM EST documented as of this encounter Care Teams Taper/Finisher Relationship Specialty Start Date End Date Colton Nelson MD [address] [place] [address] PCP - General Internal Medicine 05/04/20 [facility] 05/17/25 documented as of this encounter
--- OUTSIDE RECORDS SUMMARY | 2025-08-22 17:02 | XMS_ITS | Encounter Summary ---
Author Organization [employer] Address 75 [facility] [address] [address] Care Team Providers Care Technical Staff Assistant Name Role Phone Colton Nelson MD Primary Care Provide r Reason for Visit * Reason Onset Date Comments Reschedule 02/18/2024 Encounter Details Date Type Department Care Team ([facility] st Contact Info) Description 02/18/2024 Telephone [facility] MEDICINE 230 [place], [place] [phone] Colton Nelson MD 230 [place], [place] [phone] Reschedule Social History Tobacco Use Types Packs/Day [...] Tc from pt requesting to reschedule 02/17 ASSISTANT CHIEF ENGINEER appointment. Please contact pt at [phone] documented in this encounter Plan of Treatment Upcoming Encounters Date Type Department Care Team (Late st Contact Info) Description 09/07/2025 8:00 AM EDT Office Visit [facility] ADULT DENTAL [address] [place] [address] Bennett Yung, KAELA 230 [place] [address] 09/16/2025 11:00 AM EDT Clinical Support [address] [address] Maria Isabel Elam, RN 505 [place] [address] 09/27/2025 3:00 PM EST Office Visit [facility] MEDICINE [address] [place] [address] Colton Nelson MD 230 [place] [address] 10/28/2025 10:15 AM EST Office Visit [facility] ADULT DENTAL [address] [place] [address] Brielle Kang [address] [place] [address] documented as of this encounter Visit Diagnoses Not on filedocumented in this encounter Additional Health Concerns Assessment Noted Time PHQ-9 Depression Total Score: 0 12/17/19 23 10:18 AM EST documented as of this encounter Care Teams Technical Staff Assistant Relationship Specialty Start Date End Date Colton Nelson MD 230 [place] [address] PCP - General Internal Medicine 05/04/20 [facility] 05/17/25 documented as of this encounter
--- OUTSIDE RECORDS SUMMARY | 2025-08-22 17:02 | XMS_ITS | Encounter Summary ---
Author Organization [employer] Address 75 [facility] 7t [place] [address] Care Team Providers Care Check Totaler Name Role Phone Colton Nelson MD Primary Care Provide r Reason for Visit * Reason Comments Med Refill Encounter Details Date Type Department Care Team ([facility] st Contact Info) Description 10/15/2023 Refill [facility] MEDICINE [address] [place], [place] [phone] Colton Nelson MD 230 [place], [place] [phone] Social History Tobacco Use Types Packs/Day Years [...] Description 09/07/2025 8:00 AM EDT Office Visit [facility] ADULT DENTAL [address] [place] [address] Bennett Yung DMD 230 [place] [address] 09/16/2025 11:00 AM EDT Clinical Support [facility] MEDICINE [address] [place] [address] Maria Isabel Elam, ELEAZAR 505 [place] [address] 09/27/2025 3:00 PM EST Office Visit [facility] MEDICINE [address] [place] [address] Colton Nelson MD [address] [place] [address] 10/28/2025 10:15 AM EST Office Visit [facility] ADULT DENTAL [address] [place] [address] Brielle Kang [address] [place] [address] documented as of this encounter Visit Diagnoses Not on filedocumented in this encounter Additional Health Concerns Assessment Noted Time PHQ-9 Depression Total Score: 0 12/17/19 23 10:18 AM EST documented as of this encounter Care Teams Check Totaler Relationship Specialty Start Date End Date Colton Nelson MD [address] [place] [address] PCP - General Internal Medicine 05/04/20 [facility] 05/17/25 documented as of this encounter
--- OUTSIDE RECORDS SUMMARY | 2025-08-22 17:02 | XMS_ITS | Encounter Summary ---
Author Organization [employer] Address [address] [place] [address] 7[place] [address] Care Team Providers Care Sheep Herder Name Role Phone Colton Nelson MD Primary Care Provide r Encounter Details Date Type Department Care Team (Latest Contact Info) Description 12/13/2020 Abstract [facility] CONVERSIONS Dental, Provider, DDS Social [...] Description 09/07/2025 8:00 AM EDT Office Visit [facility] ADULT DENTAL [address] [place] [address] Bennett Yung, KAELA 230 [place] [address] 09/16/2025 11:00 AM EDT Clinical Support [facility] MEDICINE [address] [place] [address] Maria Isabel Elam RN [address] [place] [address] 09/27/2025 3:00 PM EST Office Visit [facility] MEDICINE [address] [place] [address] Colton Nelson MD [address] [place] [address] 10/28/2025 10:15 AM EST Office Visit [facility] ADULT DENTAL 230 [place], [place] [phone] Brielle Kang 230 [place], [place] [phone] documented as of this encounter Visit Diagnoses Not on filedocumented in this encounter Care Teams Sheep Herder Relationship Specialty Start Date End Date Colton Nelson MD 230 [place] [address] PCP - General Internal Medicine 05/04/20 [facility] 05/17/25 documented as of this encounter
--- OUTSIDE RECORDS SUMMARY | 2025-08-22 17:02 | XMS_ITS | Encounter Summary ---
Author Organization [employer] Address 75 [facility] 7t [place] [address] Care Team Providers Care Yoga Teacher Name Role Phone Colton Nelson MD Primary Care Provide r Reason for Visit * Reason Onset Date Comments status of appts 06/23/2025 Encounter Details Date Type Department Care Team ([facility] st Contact Info) Description 06/23/2025 Telephone [facility] ADULT DENTAL 230 [place] [address] Bennett Yung, KAELA [address] [place] [address] status of appts Social History Tobacco Use Types Packs/Day Years [...] encounter Miscellaneous Notes * Telephone Encounter - Noelle Alex - 06/23/2025 12:58 PM EDT Patient called in checking in on status of apt. Active requested. Patients phone was not in workingorder and unsure if he had missed a call to schedule. service desk associate does not see authorization in file. Verifying with garbage collector supervisor and will reach out to patient to update DR documented in this encounter Plan of Treatment Upcoming Encounters Date Type Department Care Team (Late st Contact Info) Description 09/07/2025 8:00 AM EDT Office Visit [facility] ADULT DENTAL 230 [place] [address] Bennett Yung, KAELA [address] [place] [address] 09/16/2025 11:00 AM EDT Clinical Support [facility] MEDICINE [address] [place] [address] Maria Isabel Elam, RN 505 [place] [address] 09/27/2025 3:00 PM EST Office Visit [facility] MEDICINE 230 [place] [address] Colton Nelson MD [address] [place] [address] 10/28/2025 10:15 AM EST Office Visit [facility] ADULT DENTAL 230 [place] [address] Pearl, Brielle [address] [place] [address] documented as of this encounter Visit Diagnoses Not on filedocumented in this encounter Additional Health Concerns Assessment Noted Time PHQ-9 Depression Total Score: 9 02/05/20 25 2:00 PM EDT documented as of this encounter Care Teams Yoga Teacher Relationship Specialty Start Date End Date Colton Nelson MD [address] [place] [address] PCP - General Internal Medicine 05/04/20 [facility] 05/17/25 documented as of this encounter
--- OUTSIDE RECORDS SUMMARY | 2025-08-22 17:02 | XMS_ITS | Encounter Summary ---
Author Organization [employer] Address 75 [facility] 7t [place] [address] Care Team Providers Care Vp Scientific Name Role Phone Colton Nelson MD Primary Care Provide r Reason for Visit * Reason Onset Date Comments Appointment Request 12/23/2023 Encounter Details Date Type Department Care Team ([facility] st Contact Info) Description 12/23/2023 Telephone [facility] MEDICINE [address] [place], [place] [phone] Colton Nelson MD 230 [place], [place] [phone] Appointment Request Social History Tobacco Use Types [...] with pcp 12/18/23. Please contact pt at [phone]. documented in this encounter Plan of Treatment Upcoming Encounters Date Type Department Care Team (Late st Contact Info) Description 09/07/2025 8:00 AM EDT Office Visit [facility] ADULT DENTAL [address] [place] [address] Bennett Yung, KAELA 230 [place] [address] 09/16/2025 11:00 AM EDT Clinical Support [address] [address] Maria Isabel Elam, ELEAZAR [address] [place] [address] 09/27/2025 3:00 PM EST Office Visit [facility] MEDICINE [address] [place] [address] Colton Nelson MD [address] [place] [address] 10/28/2025 10:15 AM EST Office Visit [facility] ADULT DENTAL [address] [place] [address] Brielle Kang 230 [place] [address] documented as of this encounter Visit Diagnoses Not on filedocumented in this encounter Additional Health Concerns Assessment Noted Time PHQ-9 Depression Total Score: 0 12/17/19 23 10:18 AM EST documented as of this encounter Care Teams Vp Scientific Relationship Specialty Start Date End Date Colton Nelson MD 230 [place] [address] PCP - General Internal Medicine 05/04/20 [facility] 05/17/25 documented as of this encounter
--- OUTSIDE RECORDS SUMMARY | 2025-08-22 17:02 | XMS_ITS | Encounter Summary ---
Author Organization [employer] Address 75 [facility] 7t [place] [address] Care Team Providers Care Cultural Anthropology Professor Name Role Phone Colton Nelson MD Primary Care Provide r Reason for Visit * Reason Comments Med Refill Encounter Details Date Type Department Care Team ([facility] st Contact Info) Description 04/16/2024 Refill [facility] MEDICINE 230 [place] [address] Constance Wiggins MD 230 [place], [place] [phone] Chronic obstructive pulmonary disease, unspecified COPD type [...] Description 09/07/2025 8:00 AM EDT Office Visit [facility] ADULT DENTAL [address] [place] [address] Bennett Yung DMD 230 [place] [address] 09/16/2025 11:00 AM EDT Clinical Support [address] [address] Maria Isabel Elam, ELEAZAR 505 [place] [address] 09/27/2025 3:00 PM EST Office Visit [address] [address] Colton Nelson MD [address] [place] [address] 10/28/2025 10:15 AM EST Office Visit [facility] ADULT DENTAL 230 [place] [address] Brielle Kang 230 [place] [address] documented as of this encounter Visit Diagnoses Diagnosis Chronic obstructive pulmonary disease, unspecified COPD type (CMS/HCC) (HCC) documented in this encounter Additional Health Concerns Assessment Noted Time PHQ-9 Depression Total Score: 0 12/17/19 23 10:18 AM EST documented as of this encounter Care Teams Cultural Anthropology Professor Relationship Specialty Start Date End Date Colton Nelson MD [facility] [place] [address] PCP - General Internal Medicine 05/04/20 [facility] 05/17/25 documented as of this encounter
--- OUTSIDE RECORDS SUMMARY | 2025-08-22 17:02 | XMS_ITS | Patient Health Record ---
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 [address] [place] [phone] [id number] TANIA SALMERON Self - patient is the insured Medical (General) History Medical History History ICD Code hypertension type II diabetes asthma Arthritis back pain cirrhosis elevated cholesterol restless leg syndrome COPD ALLY/CPAP Surgical History Surgery Date(Month/Year) Pinched Nerve Back of Head cholecystectomy
--- OUTSIDE RECORDS SUMMARY | 2025-08-22 17:02 | XMS_ITS | Encounter Summary ---
Author Organization [employer] Address 75 [facility] 7t [place] [address] Care Team Providers Care Posting Clerk Name Role Phone Colton Nelson MD Primary Care Provide r Reason for Visit * Reason Comments Med Refill Encounter Details Date Type Department Care Team ([facility] st Contact Info) Description 04/21/2024 Refill [facility] MEDICINE 230 [place], [place] [phone] Constance Wiggins MD 230 [place], [place] [phone] Chronic obstructive pulmonary disease, unspecified COPD type [...] Description 09/07/2025 8:00 AM EDT Office Visit [facility] ADULT DENTAL [address] [place] [address] Bennett Yung DMD 230 [place] [address] 09/16/2025 11:00 AM EDT Clinical Support [address] [address] Maria Isabel Elam, ELEAZAR 505 [place] [address] 09/27/2025 3:00 PM EST Office Visit [address] [address] Colton Nelson MD [address] [place] [address] 10/28/2025 10:15 AM EST Office Visit [facility] ADULT DENTAL 230 [place] [address] Brielle Kang 230 [place] [address] documented as of this encounter Visit Diagnoses Diagnosis Chronic obstructive pulmonary disease, unspecified COPD type (CMS/HCC) (HCC) documented in this encounter Additional Health Concerns Assessment Noted Time PHQ-9 Depression Total Score: 0 12/17/19 23 10:18 AM EST documented as of this encounter Care Teams Posting Clerk Relationship Specialty Start Date End Date Colton Nelson MD [facility] [place] [address] PCP - General Internal Medicine 05/04/20 [facility] 05/17/25 documented as of this encounter
--- OUTSIDE RECORDS SUMMARY | 2025-08-22 17:02 | XMS_ITS | Encounter Summary ---
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 Please contact pt at [phone]. documented in this encounter Plan of Treatment Upcoming Encounters Date Type Department Care Team (Late st Contact Info) Description 09/07/2025 8:00 AM EDT Office Visit [facility] ADULT DENTAL [address] [place] [address] Bennett Yung, KAELA 230 [place] [address] 09/16/2025 11:00 AM EDT Clinical Support [facility] MEDICINE [address] [place] [address] Maria Isabel Elam RN 505 [place] [address] 09/27/2025 3:00 PM EST Office Visit [facility] MEDICINE [address] [place] [address] Colton Nelson MD [address] [place] [address] 10/28/2025 10:15 AM EST Office Visit [facility] ADULT DENTAL [address] [place] [address] Brielle Kang 230 [place] [address] documented as of this encounter Visit Diagnoses Not on filedocumented in this encounter Additional Health Concerns Assessment Noted Time PHQ-9 Depression Total Score: 0 12/17/19 23 10:18 AM EST documented as of this encounter Care Teams Packing Checker Relationship Specialty Start Date End Date Colton Nelson MD 230 [place] [address] PCP - General Internal Medicine 05/04/20 Home [facility] 05/17/25 documented as of this encounter
--- OUTSIDE RECORDS SUMMARY | 2025-08-22 17:02 | XMS_ITS | Encounter Summary ---
Author Organization [employer] Address 75 [facility] 7t [place] [address] Care Team Providers Care Retail Pricing Coordinator Name Role Phone Colton Nelson MD Primary Care Provide r Reason for Visit * Reason Comments Med Refill Encounter Details Date Type Department Care Team ([facility] st Contact Info) Description 10/09/2023 Refill [facility] MEDICINE 230 [place] [address] Colton Nelson MD 230 [place], [place] [phone] Social History Tobacco Use Types Packs/Day Years [...] Description 09/07/2025 8:00 AM EDT Office Visit [facility] ADULT DENTAL 230 [place] [address] Bennett Yung DMD 230 [place] [address] 09/16/2025 11:00 AM EDT Clinical Support [facility] MEDICINE [address] [place] [address] Maria Isabel Elam, ELEAZAR 505 [place] [address] 09/27/2025 3:00 PM EST Office Visit [facility] MEDICINE [address] [place] [address] Colton Nelson MD [address] [place] [address] 10/28/2025 10:15 AM EST Office Visit [facility] ADULT DENTAL 230 [place] [address] Brielle Kang 230 [place] [address] documented as of this encounter Visit Diagnoses Not on filedocumented in this encounter Additional Health Concerns Assessment Noted Time PHQ-9 Depression Total Score: 0 12/17/19 23 10:18 AM EST documented as of this encounter Care Teams Retail Pricing Coordinator Relationship Specialty Start Date End Date Colton Nelson MD [address] [place] [address] PCP - General Internal Medicine 05/04/20 Home [facility] 05/17/25 documented as of this encounter
--- OUTSIDE RECORDS SUMMARY | 2025-08-22 17:02 | XMS_ITS | Encounter Summary ---
Author Organization [employer] Address 75 [facility] 7[place] [address] Care Team Providers Care Warm In Name Role Phone Colton Nelson MD Primary Care Provide r Encounter Details Date Type Department Care Team (Late Contact Info) Description 04/03/2023 Abstract [facility] MEDICINE 230 [place] [address] Colton Nelson MD 230 [place] [address] Social History Tobacco Use Types Packs/Day Years [...] Department Care Team (Late Contact Info) Description 09/07/2025 8:00 AM EDT Office Visit [facility] ADULT DENTAL 230 [place] [address] Bennett Yung, DMD 230 [place] [address] 09/16/2025 11:00 AM EDT Clinical Support [facility] MEDICINE 230 [place] [address] Maria Isabel Elam, RN 505 [place] [address] 09/27/2025 3:00 PM EST Office Visit [facility] MEDICINE 230 [place] [address] Colton Nelson MD 230 [place] [address] 10/28/2025 10:15 AM EST Office Visit [facility] ADULT DENTAL 230 [place] [address] Brielle Kang 230 [place] [address] documented as of this encounter Procedures Procedure [...] documented as of this encounter Care Teams Warm In Relationship Specialty Start Date End Date Colton Nelson MD [address] [place] [address] PCP - General Internal Medicine 05/04/20 Home [facility] 05/17/25 documented as of this encounter
--- OUTSIDE RECORDS SUMMARY | 2025-08-22 17:02 | XMS_ITS | Encounter Summary ---
Author Organization [employer] Address 75 [facility] 7t [place] [address] Care Team Providers Care Piece Jobber Name Role Phone Colton Nelson MD Primary Care Provide r Reason for Visit * Reason Onset Date Comments Call Back Request 05/13/2024 Encounter Details Date Type Department Care Team ([facility] st Contact Info) Description 05/13/[address] [facility] MEDICINE 230 [place], [place] [phone] Colton Nelson MD 230 [place], [place] [phone] Call Back Request Social History Tobacco Use [...] from pt requesting a call back with diplomatic interpreter/translator, stated think he needs an appt but not sure about it. documented in this encounter Plan of Treatment Upcoming Encounters Date Type Department Care Team (Late st Contact Info) Description 09/07/2025 8:00 AM EDT Office Visit [facility] ADULT DENTAL [address] [place] [address] Bennett Yung, KAELA [address] [place] [address] 09/16/2025 11:00 AM EDT Clinical Support [facility] MEDICINE [address] [place] [address] Maria Isabel Elam, ELEAZAR 505 [place] [address] 09/27/2025 3:00 PM EST Office Visit [facility] MEDICINE [address] [place] [address] Colton Nelson MD [address] [place] [address] 10/28/2025 10:15 AM EST Office Visit [facility] ADULT DENTAL [address] [place] [phone] PearlBrielle 230 [place] [address] documented as of this encounter Visit Diagnoses Not on filedocumented in this encounter Additional Health Concerns Assessment Noted Time PHQ-9 Depression Total Score: 0 05/11/20 24 1:30 PM EDT documented as of this encounter Care Teams Piece Jobber Relationship Specialty Start Date End Date Colton Nelson MD 230 [place] [address] PCP - General Internal Medicine 05/04/20 Home [facility] 05/17/25 documented as of this encounter
--- OUTSIDE RECORDS SUMMARY | 2025-08-22 17:02 | XMS_ITS | Encounter Summary ---
Author Organization [email or web address] Address 75 [facility] 7t [place] [address] Care Team Providers Care Coffee Shop Attendant Name Role Phone Colton Nelson MD Primary Care Provide r Reason for Visit * Reason Comments Med Refill Encounter Details Date Type Department Care Team ([facility] st Contact Info) Description 05/17/2024 Refill [facility] MEDICINE 230 [place], [place] [phone] Ashley Carrion, ANP 230 [place] [address] Lumbar disc herniation Social History Tobacco Use [...] your housing situation today? I have cedric elhman 05/11/[address] you li [...] Description 09/07/2025 8:00 AM EDT Office Visit [facility] ADULT DENTAL [address] [place] [address] Bennett Yung, DMD [address] [place] [address] 09/16/2025 11:00 AM EDT Clinical Support [facility] MEDICINE [address] [place] [address] Maria Isabel Elam, ELEAZAR 505 [place] [address] 09/27/2025 3:00 PM EST Office Visit [facility] MEDICINE [address] [place] [address] Colton Nelson MD [address] [place] [address] 10/28/2025 10:15 AM EST Office Visit [facility] ADULT DENTAL [address] [place] [address] Brielle Kang 230 [place] [address] documented as of this encounter Visit Diagnoses Diagnosis Lumbar disc herniation Displacement of lumbar intervertebral disc without myelopathy documented in this encounter Additional Health Concerns Assessment Noted Time PHQ-9 Depression Total Score: 0 05/11/20 24 1:30 PM EDT documented as of this encounter Care Teams Coffee Shop Attendant Relationship Specialty Start Date End Date Colton Nelson MD 230 [place] [address] PCP - General Internal Medicine 05/04/20 Home [facility] 05/17/25 documented as of this encounter
--- OUTSIDE RECORDS SUMMARY | 2025-08-22 17:02 | XMS_ITS | Encounter Summary ---
Author Organization [employer] Address [address] [facility] [address] 7t [place] [address] Care Team Providers Care Epic Interface Analyst Name Role Phone Colton Nelson MD Primary Care Provide r Encounter Details Date Type Department Care Team (Late st Contact Info) Description 11/13/2023 Abstract [facility] ADULT DENTAL 230 [place] [address] Xavier Kangaris [address] [place] [address] Social History Tobacco Use Types Packs/Day Years [...] Description 09/07/2025 8:00 AM EDT Office Visit [facility] ADULT DENTAL [address] [place] [address] Bennett Yung, DMD [address] [place] [address] 09/16/2025 11:00 AM EDT Clinical Support [facility] MEDICINE [address] [place] [address] Maria Isabel Elam, RN 505 [place] [address] 09/27/2025 3:00 PM EST Office Visit [facility] MEDICINE [address] [place] [address] Colton Nelson MD [address] [place] [address] 10/28/2025 10:15 AM EST Office Visit [facility] ADULT DENTAL [address] [place] [address] Brielle Kang [address] [place] [address] documented as of this encounter Visit Diagnoses Not on filedocumented in this encounter Additional Health Concerns Assessment Noted Time PHQ-9 Depression Total Score: 0 12/17/19 23 10:18 AM EST documented as of this encounter Care Teams Epic Interface Analyst Relationship Specialty Start Date End Date Colton Nelson MD [address] [place] [address] PCP - General Internal Medicine 05/04/20 Home [facility] 05/17/25 documented as of this encounter
--- OUTSIDE RECORDS SUMMARY | 2025-08-22 17:02 | XMS_ITS | Encounter Summary ---
Author Organization [employer] Address 75 [facility] 7t [place] [address] Care Team Providers Care Control Valve Mechanic Name Role Phone Colton Nelson MD Primary Care Provide r Reason for Visit * Reason Comments Med Refill Encounter Details Date Type Department Care Team ([facility] st Contact Info) Description 06/18/2024 Refill [facility] MEDICINE 230 [place], [place] [phone] Colton Nelson MD 230 [place], [place] [phone] Chronic obstructive pulmonary disease, unspecified COPD type [...] Description 09/07/2025 8:00 AM EDT Office Visit [facility] ADULT DENTAL [address] [place] [address] Bennett Yung, KAELA [address] [place] [address] 09/16/2025 11:00 AM EDT Clinical Support [facility] MEDICINE [address] [place] [address] Maria Isabel Elam RN 505 [place] [address] 09/27/2025 3:00 PM EST Office Visit [address] [address] Colton Nelson MD [address] [place] [address] 10/28/2025 10:15 AM EST Office Visit [facility] ADULT DENTAL [address] [place] [address] Brielle Kang 230 [place] [address] documented as of this encounter Visit Diagnoses Diagnosis Chronic obstructive pulmonary disease, unspecified COPD type (CMS/HCC) (HCC) documented in this encounter Additional Health Concerns Assessment Noted Time PHQ-9 Depression Total Score: 0 05/11/20 24 1:30 PM EDT documented as of this encounter Care Teams Control Valve Mechanic Relationship Specialty Start Date End Date Colton Nelson MD [address] [place] [address] PCP - General Internal Medicine 05/04/20 Home [facility] 05/17/25 documented as of this encounter
--- OUTSIDE RECORDS SUMMARY | 2025-08-22 17:03 | XMS_ITS | Encounter Summary ---
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 Please contact pt at [phone]. (Syriac Speaker) documented in this encounter Plan of Treatment Upcoming Encounters Date Type Department Care Team ([facility] st Contact Info) Description 09/07/2025 8:00 AM EDT Office Visit [facility] ADULT DENTAL 230 [place] [address] Bennett Yung, KAELA 230 [place] [address] 09/16/2025 11:00 AM EDT Clinical Support [facility] MEDICINE 230 [place] [address] Maria Isabel Elam RN 505 [place] [address] 09/27/2025 3:00 PM EST Office Visit [facility] MEDICINE 230 [place] [address] Colton Nelson MD 230 [place] [address] 10/28/2025 10:15 AM EST Office Visit [facility] ADULT DENTAL 230 [place] [address] Pearl, Brielle 230 [place] [address] documented as of this encounter Visit Diagnoses Not on filedocumented in this encounter Additional Health Concerns Assessment Noted Time PHQ-9 Depression Total Score: 0 05/11/20 24 1:30 PM EDT documented as of this encounter Care Teams Systems Technologist Relationship Specialty Start Date End Date Colton Nelson MD [address] [place] [address] PCP - General Internal Medicine 05/04/20 [facility] 05/17/25 documented as of this encounter
--- OUTSIDE RECORDS SUMMARY | 2025-08-22 17:03 | XMS_ITS | Encounter Summary ---
Author Organization [email or web address] Address [address] [place] [address] 7[place] [address] Care Team Providers Care International Trade Teacher Name Role Phone Colton Nelson MD Primary Care Provide r Encounter Details Date Type Department Care Team (Latest Contact Info) Description 12/06/2021 Abstract [facility] CONVERSIONS Dental, Provider, DDS Social History [...] Description 09/07/2025 8:00 AM EDT Office Visit [facility] ADULT DENTAL [address] [place] [address] Bennett Yung, KAELA 230 [place] [address] 09/16/2025 11:00 AM EDT Clinical Support [facility] MEDICINE [address] [place] [address] Maria Isabel Elam RN [address] [place] [address] 09/27/2025 3:00 PM EST Office Visit [facility] MEDICINE [address] [place] [address] Colton Nelson MD [address] [place] [address] 10/28/2025 10:15 AM EST Office Visit [facility] ADULT DENTAL 230 [place], [place] [phone] Brielle Kang 230 [place], [place] [phone] documented as of this encounter Visit Diagnoses Not on filedocumented in this encounter Care Teams International Trade Teacher Relationship Specialty Start Date End Date Colton Nelson MD 230 [place] [address] PCP - General Internal Medicine 05/04/20 Home [facility] 05/17/25 documented as of this encounter
--- OUTSIDE RECORDS SUMMARY | 2025-08-22 17:03 | XMS_ITS | Encounter Summary ---
Author Organization [employer] Address 75 [facility] 7t [place] [address] Care Team Providers Care Steam Plant Records Clerk Name Role Phone Colton Nelson MD Primary Care Provide r Encounter Details Date Type Department Care Team (Late st Contact Info) Description 08/22/2025 Orders Only GENERIC EXTERNAL DATA DEPARTMENT Provider, Generic External Data Social History Tobacco Use Types Packs/Day Years [...] Description 09/07/2025 8:00 AM EDT Office Visit [facility] ADULT DENTAL [address] [place] [phone] Bennett Yung, KAELA [address] [place] [address] 09/16/2025 11:00 AM EDT Clinical Support [facility] MEDICINE [address] [place] [address] Maria Isabel Elam, ELEAZAR [address] [place] [address] 09/27/2025 3:00 PM EST Office Visit [facility] MEDICINE [address] [place] [address] Colton Nelson MD [address] [place] [address] 10/28/2025 10:15 AM EST Office Visit [facility] ADULT DENTAL [address] [place] [address] Brielle Kang [address] [place] [address] documented as of this encounter Procedures Procedure Name Priority Date/Time Associated Diagnosis Comments PSA, TOTAL Routine 08/22/2025 3:02 PM EDT documented in this encounter Results * PSA,Total (08/22/2025 3:02 PM EDT) Prostate Specific Antigen 3.16 <0.05 - 4.0 ng/mL [facility] Comment:PSA methodology: Daniel Espinal i ChemiluminescentMicroparticle Immunoassay (CMIA) 08/22/2025 3:02 PM EDT 08/22/2025 4:05 PM EDT us Generic External Data Provider LAB BLOOD ORDERAB LES Final Result [facility] [address] [place] [phone] documented in this encounter Visit Diagnoses Not on filedocumented in this encounter Additional Health Concerns Assessment Noted Time PHQ-9 Depression Total Score: 9 02/05/20 25 2:00 PM EDT documented as of this encounter Care Teams Steam Plant Records Clerk Relationship Specialty Start Date End Date Colton Nelson MD [address] [place] [phone] PCP - General Internal Medicine 05/04/20 [facility] 05/17/25 documented as of this encounter
--- OUTSIDE RECORDS SUMMARY | 2025-08-22 17:03 | XMS_ITS | Encounter Summary ---
Author Organization [employer] Address [address] [facility] [address] 7[address] [place] [address] Care Team Providers Care Clothing Supervisor Name Role Phone Colton Nelson MD Primary Care Provide r Reason for Visit * Reason Comments Med Refill Encounter Details Date Type Department Care Team ([facility] st Contact Info) Description 08/05/2025 Refill [facility] CHC MED & PEDS [address] [place], [place] [phone] Colton Nelson MD 230 [place], [place] [phone] Chronic obstructive pulmonary disease, unspecified COPD type [...] Description 09/07/2025 8:00 AM EDT Office Visit [facility] ADULT DENTAL [address] [place] [phone] Bennett Yung, KAELA [address] [place] [address] 09/16/2025 11:00 AM EDT Clinical Support [facility] MEDICINE [address] [place] [address] Maria Isabel Elam, ELEAZAR 505 [place] [address] 09/27/2025 3:00 PM EST Office Visit [facility] MEDICINE [address] [place] [address] Colton Nelson MD [address] [place] [address] 10/28/2025 10:15 AM EST Office Visit [facility] ADULT DENTAL [address] [place] [address] Brielle Kang [address] [place] [address] documented as of this encounter Visit Diagnoses Diagnosis Chronic obstructive pulmonary disease, unspecified COPD type (CMS/HCC) (HCC) documented in this encounter Additional Health Concerns Assessment Noted Time PHQ-9 Depression Total Score: 9 02/05/20 25 2:00 PM EDT documented as of this encounter Care Teams Clothing Supervisor Relationship Specialty Start Date End Date Colton Nelson MD 230 [place] [address] PCP - General Internal Medicine 05/04/20 [facility] 05/17/25 documented as of this encounter
--- OUTSIDE RECORDS SUMMARY | 2025-08-22 17:03 | XMS_ITS | Encounter Summary ---
Author Organization [employer] Address [address] [facility] [address] 7t [place] [address] Care Team Providers Care Tar Heat Exchanger Cleaner Name Role Phone Colton Nelson MD Primary Care Provide r Encounter Details Date Type Department Care Team (Latest Contact Info) Description 08/22/2025 Travel Social History Tobacco Use Types Packs/Day [...] 8:00 AM EDT Office Visit [facility] ADULT DENTAL [address] [place] [phone] Bennett Yung, KAELA [address] [place] [address] 09/16/2025 11:00 AM EDT Clinical Support [address] [address] Maria Isabel Elam RN [address] [place] [address] 09/27/2025 3:00 PM EST Office Visit [facility] MEDICINE [address] [place] [address] Colton Nelson MD [address] [place] [address] 10/28/2025 10:15 AM EST Office Visit [facility] ADULT DENTAL [address] [place] [address] Brielle Kang [address] [place] [address] documented as of this encounter Visit Diagnoses Not on filedocumented in this encounter Additional Health Concerns Assessment Noted Time PHQ-9 Depression Total Score: 9 02/05/20 25 2:00 PM EDT documented as of this encounter Care Teams Tar Heat Exchanger Cleaner Relationship Specialty Start Date End Date Colton Nelson MD [address] [place] [phone] PCP - General Internal Medicine 05/04/20 [facility] 05/17/25 documented as of this encounter
== END 2025-08-22 14:59 | disposition home or self-care (01) ==
LOC: HO.HHCL 14:58
PROVIDERS: Urology; PCP Internal Medicine; Visit Provider Nurse Practitioner Family
DX: E29.1 Testicular hypofunction (principal); R10.13 Epigastric pain; K27.9 Peptic ulcer, site unspecified, unspecified as acute or chronic, without hemorrhage or perforation; Z12.5 Encounter for screening for malignant neoplasm of prostate
CPT/HCPCS: 36415; 80053; 84153; 85025; 85652; 86140

== ENCOUNTER 2025-10-11 13:43 | Outpatient (AMB) | payer OTHER, SELFPAY ==
[2025-10-11 13:52] VITALS: BP 130/70; PULSE 87; O2SAT 96; BMI 30.5
--- NOTE | 2025-10-11 13:52 | A.OFFVIS_ITS ---
Vital Signs 10/11/25 13:52 Height 5 ft 4 in Weight 177 lb 7.554 oz BMI 30.5 BP 130/70 Blood Pressure Location Lt brachial Position Sitting Pulse 87 Pulse Source Pulse Oximeter Pulse Oximetry (%) 96 Oxygen Delivery Method Room Air Intake Visit Reasons: Asthma Intake Note: pt is here for follow up and states he has been wheezing for over a month, needs cpap supplies, sent message to Lynda asking what is going on. Director Of Entertainment Required: No Remote Coders: Remote Coders offered & declined Allergies hydrochlorothiazide Allergy (Unknown, Verified 10/11/25 14:08) unknown lisinopril Allergy (Unknown, Verified 10/11/25 14:08) unknown olmesartan Allergy (Unknown, Verified 10/11/25 14:08) unknown venom-honey bee Allergy (Unknown, Verified 10/11/25 14:08) unknown Medication List - Last Reconciled 10/11/25 by Celestina Denney MD acetaminophen 325 mg PO QID PRN albuterol sulfate 90 mcg/actuation (Ventolin HFA) 2 puffs PO Q4-6H PRN 30 days amlodipine 10 mg PO QAM celecoxib (Celebrex) 200 mg PO DAILY chlorthalidone 12.5 mg PO QAM cholecalciferol (vitamin D3) 50 mcg PO QAM diclofenac sodium 1% 2 grams topical QID fluticasone propion-salmeterol 115-21 mcg/actuation 2 puffs inhalation BID 30 days fluticasone propionate 50 mcg/actuation 2 sprays intranasal DAILY PRN glipizide ER 2.5 mg PO DAILY ipratropium-albuterol 0.5 mg-3 mg(2.5 mg base)/3 mL 3 mL inhalation Q6H PRN 30 d ays ketotifen fumarate 0.025%(0.035%) 1 drp ophthalmic (eye) BID leg brace (Knee Support Brace) knee support genumed [id number] leg brace (Knee Support Brace) Please reprint genumed rx leg brace (Knee Support Brace) knee support genumed [id number] levocetirizine 5 mg PO BEDTIME melatonin 10 mg PO BEDTIME metformin 1,000 mg PO BID montelukast 10 mg PO DAILY omeprazole 20 mg PO QAM oxycodone-acetaminophen 5-325 mg 1 tab PO QID PRN ropinirole 4 mg PO BEDTIME simvastatin 10 mg PO BEDTIME Do you need a note to return to daycare/school/sports/work: No HPI HPI Asthma: Details: 80 YEARS OLD 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 HE COMES FOR. FOLLOW-UP AFTER 6 MONTHS IN THE PAST MONTH HE IS NOT USING CPAP, REGULARLY. HE IS WAITING FOR SOME NEW SUPPLIES. HIS BREATHING IS ALSO LITTLE BIT WORSE, HE NEEDS RENEWAL OF HIS ADVAIR HFA AND VENTOLIN. HE CONTINUES TO HAVE MILD NASAL CONGESTION AND HAS TO USE FLONASE EVERY DAY ON LICENSE OF [facility] Medical History Allergic rhinitis RLS (restless legs syndrome) COPD (chronic obstructive pulmonary disease) ALLY on CPAP Obesity (BMI 30-39.9) RLS (restless legs syndrome) GERD (gastroesophageal reflux disease) COPD (chronic obstructive pulmonary disease) Carpal tunnel syndrome Lumbar disc herniation Back pain Syncope Arthritis Arrhythmia Asthma DMII (diabetes mellitus, type 2) HTN (hypertension) Surgical History History of cervical spinal surgery History of lumbosacral spine surgery History of cholecystectomy Family History Father Stroke Social History Household Members: Spouse Housing: Apartment Do you presently have visiting nurse or other home services: No (RETAIL SALES ADVISOR services at home 2x week) Alcohol intake: current Alcohol intake frequency: holidays/special occasions only Patient Tobacco Use Status: Former Tobacco user Tobacco use type: Cigarette e-Cigarette/Vaping Use: Former Use Current occupational status: retired Current occupation: rt handed Physical Exam Vital Signs: Last Vital Signs Pulse 87 10/11/25 13:52 BP 130/70 10/11/25 13:52 Pulse Ox 96 10/11/25 13:52 Oxygen Delivery Method Room Air 10/11/25 13:52 BMI result Body Mass Index 30.5 Const General: healthy appearing (Except for being overweight,, Weight down by 6 LBs .), comfortable, no acute distress, alert and awake Orientation/consciousness: patient oriented x3 HEENT Head: Yes normal to inspection General nose exam: No nasal polyps present and No nasal discharge present Face and sinus: Yes sinuses nontender Mouth: oropharynx normal Throat: Yes posterior oropharynx normal Eyes General: appearance normal, both eyes and all related structures Neck Neck: Yes normal visual inspection, Yes no lymphadenopathy, Yes trachea midline and Yes no JVD Thyroid: Thyroid normal Chest Chest palpation & inspection: normal inspection of the chest, normal palpation of entire chest wall and no tenderness Resp Other: Percussion note is resonant. Breath sounds are equal on both sides but quite distant with prolonged expiratory phase. A few scattered expiratory wheezes are heard in the upper chest. Cardio Palpation: normal PMI Rate: regular rate Rhythm: regular rhythm Heart sounds: no gallops and no murmurs GI Palpation (GI): Soft to palpation, nontender, No hepatosplenomegaly present and no masses Auscultation: normal bowel sounds Back/Spine/Pelvis Thoracic/Lumbar Spine: thoracic and lumbar spine normal to inspection and thoraco-lumbar ROM limited Skin General skin exam: no rashes or lesions noted Neuro General: patient oriented x3 and no focal motor deficits Cranial nerves: Yes CN's II-XII intact bilaterally Extrem General: Yes normal to inspection, Yes no clubbing, cyanosis or edema and Yes no calf tenderness Psych Appearance: grossly normal and well kempt Speech and movement: Normal speech and movement present Results Reviewed Results Reviewed: COMPLIANCE REPORT FOR THE LAST 30 NIGHTS IS REVIEWED. HE HAS USED ONLY 13/30 NIGHTS. AND WENT ALMOST FOR 2 WEEKS WITHOUT USING THE CPAP.. SAY IS HE JUST COULD NOT KEEP IT ON HIS MOUTH. Assessment & Plan Assessment & Plan (1) COPD (chronic obstructive pulmonary disease): Comment: HAS CHRONIC ASTHMA/COPD , CURRENTLY WELL CONTROLLED AND STABLE. BUT HE IS PRONE TO HAVE ACUTE EXACERBATIONS QUITE FREQUENTLY. CURRENTLY HE SAY IS HE HAS BEEN OUT OF ADVAIR AND NEEDS REFILL Code(s): J44.9 - Chronic obstructive pulmonary disease, unspecified Category: Medical Plan: CONTINUE TO USE FLUTICASONE PROBE-SALMETEROL 115-21 2 INHALATIONS B.I.D. VENTOLIN HFA 2 PUFFS Q 4-6 HOURS P.R.N. WHEN OUTDOORS IPRATROPIUM-ALBUTEROL SOLUTION IN THE NEBULIZER Q 6 HOURS PRN AT HOME (2) Allergic rhinitis: Comment: HAS CHRONIC ALLERGIC RHINITIS WHICH IS RELATIVELY CONTROLLED WITH HIS MAINTENANCE REGIMEN. Code(s): J30.9 - Allergic rhinitis, unspecified Category: Medical Plan: FLONASE-52 SPRAY IN EACH NOSTRIL DAILY LEVEL CETIRIZINE 5 MG AT BEDTIME DAILY MONTELUKAST 10 MG ONCE A DAY (3) RLS (restless legs syndrome): Comment: CHRONIC, PROBLEM IN ADDITION TO OBSTRUCTIVE SLEEP APNEA. CONTROLLED WITH THE USE OF ROPINIROLE 4 MG AT BEDTIME Code(s): G25.81 - Restless legs syndrome Category: Medical Plan: CONTINUE USING ROPINIROLE 4 MG AT BEDTIME (4) ALLY on CPAP: Comment: OBSTRUCTIVE SLEEP APNEA , MANAGED VERY WELL . COMPLIANCE HAS BEEN GOOD BUT LATELY HE IS NOT USING THE CPAP REGULARLY. NEEDS NEW SUPPLIES . HE STATES THAT WHEN HE STARTS HAVING COUGH AT NIGHT HE HAS TO REMOVE THE CPAP. Code(s): G47.33 - Obstructive sleep apnea (adult) (pediatric); Z99.89 - Dependence on other enabling machines and devices Category: Medical Plan: STRESSED THAT HE SHOULD USE CPAP EVERY NIGHT. USE FLONASE 2 SPRAY IN EACH NOSTRIL BEFORE PUTTING ON THE CPAP. ORDER FOR NEW SUPPLIES IS SENT. Medications: New albuterol sulfate 90 mcg/actuation (Ventolin HFA) 2 puffs inhalation Q4-6H PRN 8.5 grams 5RF shortness of breath or wheezing 30 days Coding Level of Care Code Est Pt Level 3 (42010) Diagnoses COPD (chronic obstructive pulmonary disease) J44.9 Allergic rhinitis J30.9 RLS (restless legs syndrome) G25.81 ALLY on CPAP G47.33; Z99.89
--- OUTSIDE RECORDS SUMMARY | 2025-10-12 07:22 | XMS_ITS | Encounter Summary ---
Author Organization [employer] Address [address] [facility] [address] 7t [place] [address] Care Team Providers Care Policy Change Clerk Name Role Phone Colton Nelson MD Primary Care Provide r Encounter Details Date Type Department Care Team (Late st Contact Info) Description 11/13/2023 Abstract [facility] ADULT DENTAL [address] [place] [address] Xavier Kangaris [address] [place] [address] Social History Tobacco Use Types Packs/Day Years [...] Care Team (Late st Contact Info) Description 10/14/2025 2:30 PM EST Office Visit [facility] ADULT DENTAL [address] [place] [address] Bennett Yung, DMD [address] [place] [address] 10/28/2025 10:15 AM EST Office Visit [facility] ADULT DENTAL [address] [place] [address] Brielle Kang [address] [place] [address] 11/14/2025 11:00 AM EST Telemedicine [facility] CHC MED & PEDS [address] [place] [address] Maria Isabel Elam, RN [address] [place] [address] documented as of this encounter Visit Diagnoses Not on filedocumented in this encounter Additional Health Concerns Assessment Noted Time PHQ-9 Depression Total Score: 0 12/17/19 23 10:18 AM EST documented as of this encounter Care Teams Policy Change Clerk Relationship Specialty Start Date End Date Colton Nelson MD [address] [place] [address] PCP - General Internal Medicine 05/04/20 [facility] 05/17/25 documented as of this encounter
--- OUTSIDE RECORDS SUMMARY | 2025-10-12 07:22 | XMS_ITS | Encounter Summary ---
Author Organization [employer] Address [address] [facility] [address] [place] [address] Care Team Providers Care Vacuum Spindle Sander Name Role Phone Colton Nelson MD Primary Care Provide r Reason for Visit * Reason Onset Date Comments Appointment Request 10/30/2023 Encounter Details Date Type Department Care Team ([facility] st Contact Info) Description 10/30/2023 Telephone [facility] MEDICINE [address] [place], [place] [phone] Colton Nelson MD [address] [place], [place] [phone] Appointment Request Social History Tobacco Use Types [...] Tc from pt requesting to r/s his REHAB DEPARTMENT MANAGER visit. Please contact pt at [phone]. documented in this encounter Plan of Treatment Upcoming Encounters Date Type Department Care Team (Late st Contact Info) Description 10/14/2025 2:30 PM EST Office Visit [facility] ADULT DENTAL [address] [place] [address] Bennett Yung, KAELA [address] [place] [address] 10/28/2025 10:15 AM EST Office Visit [facility] ADULT DENTAL [address] [place] [address] Brielle Kang [address] [place] [address] 11/14/2025 11:00 AM EST Telemedicine [facility] CHC MED & PEDS [address] [place] [address] Maria Isabel Elam, ELEAZAR [address] [place] [address] documented as of this encounter Visit Diagnoses Not on filedocumented in this encounter Additional Health Concerns Assessment Noted Time PHQ-9 Depression Total Score: 0 12/17/19 23 10:18 AM EST documented as of this encounter Care Teams Vacuum Spindle Sander Relationship Specialty Start Date End Date Colton Nelson MD [address] [place] [phone] PCP - General Internal Medicine 05/04/20 [facility] 05/17/25 documented as of this encounter
--- OUTSIDE RECORDS SUMMARY | 2025-10-12 07:22 | XMS_ITS | Encounter Summary ---
Author Organization [employer] Address 75 [facility] 7t [place] [address] Care Team Providers Care Blanket Winder Helper Name Role Phone Colton Nelson MD Primary Care Provide r Reason for Visit * Reason Comments Med Refill Encounter Details Date Type Department Care Team ([facility] st Contact Info) Description 10/15/2023 Refill [facility] MEDICINE [address] [place], [place] [phone] Colton Nelson MD [address] [place], [place] [phone] Social History Tobacco Use Types Packs/Day Years [...] Description 10/14/2025 2:30 PM EST Office Visit [facility] ADULT DENTAL [address] [place] [address] Bennett Yung DMD [address] [place] [address] 10/28/2025 10:15 AM EST Office Visit [facility] ADULT DENTAL [address] [place] [address] Brielle Kang [address] [place] [address] 11/14/2025 11:00 AM EST Telemedicine [facility] CHC MED & PEDS [address] [place] [address] Maria Isabel Elam, RN [address] [place] [address] documented as of this encounter Visit Diagnoses Not on filedocumented in this encounter Additional Health Concerns Assessment Noted Time PHQ-9 Depression Total Score: 0 12/17/19 23 10:18 AM EST documented as of this encounter Care Teams Blanket Winder Helper Relationship Specialty Start Date End Date Colton Nelson MD [address] [place] [address] PCP - General Internal Medicine 05/04/20 [facility] 05/17/25 documented as of this encounter
--- OUTSIDE RECORDS SUMMARY | 2025-10-12 07:23 | XMS_ITS | Clinical Summary ---
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 Phone Number [facility] [address] [place] [phone] * Albumin, Random Urine W/Creatinine (02/04/2025 3:02 PM EDT) Creatinine, Urine 157.11 mg/dL [facility] Microalbumin Urine 12.0 mg/L [facility] Microalbum Creatinine Ratio Ur 7.6 <30 ug/mg cr [facility] Comment:Albumin/Creatinine R atio Reference Ranges: Normal: < 30 ug/mg creatinine Microalbuminuria: 30 - 300 ug/mg creatinineClinical Albuminuria: > 300 ug/mg creatinine Urine (Urine, Random) 02/04/2025 3:02 PM EDT 02/04/2025 4:10 PM EDT us Colton De Leon MD LAB URINE ORDERABLES Final Result Performing Organization Address [facility] Co de Phone Number [facility] [address] [place] [phone] * Lipid Panel, Standard (12/29/2024 10:54 AM EST) Triglycerides 84 <150 mg/dL [facility] Comment:Desirable Triglyceri de: less than 150 mg/dLBorderline High Triglyceride 150-199 mg/dLHigh Triglyceride: 200-499 mg/dLVery High Triglyceride: greater than or equal to 5OO mg/dL Cholesterol 131 <200 mg/dL [facility] Comment:Desirable Cholestero l: less than 200 mg/dLBorderline High Cholesterol: 200-239 mg/dLHigh Cholesterol: greater than 239 mg/dL LDL Cholesterol Calculated 58 <100 mg/dL [facility] Comment:Desirable LDL: less than 100 mg/dLNear Optimal/Above Optimal LDL: 110- 129 mg/dLBorderline High LDL: 130-159 mg/dLHigh LDL: 160-189 mg/dLVery High LDL: greater than or equal to 190 mg/dL HDL Cholesterol 57 >40 mg/dL [facility] Comment:Desirable HDL: great er than 40 mg/dL Note: This HDL assay may give artificially low results in patients with liver disease. Blood Venous blood specimen / Unknown 12/29/2024 10:54 AM EST 12/29/2024 12:59 PM EST Colton De Leon MD LAB BLOOD ORDERABLES Final Result [facility] [address] [place] [phone] * HEPATITIS C AB W/REFL TO HCV RNA, QN, PCR (04/19/2022 8:52 AM EDT) HEPATITIS C ANTIBODY NON-REACT [place] NON-REACT [place] [facility] INDEX 0.02 <1.00 [facility] Comment: HCV antibody was non-reactive. There is no laboratory evidence of HCV infection. In most cases, no further action is required. However, if recent HCV exposure is suspected, a test for HCV RNA (test code 81823) is suggested. For additional information please refer to http://education.UIBLUEPRINT/faq/ENS28i9 (This link is being provided for informational/ educational purposes only.) 04/19/2022 8:52 AM EDT Colton De Leon MD HISTORICAL/NON ORDERA BLE LABS Final Result [facility] [address] * Hm Colonoscopy (08/18/2020) Colonoscopy Normal Normal 08/18/2020 Narrative Jacquelin Chiu - 08/18/2020 9:26 AM EDT Recommended 10 year follow up Historical Provider HEALTH MAINTENANCE Final Result from Last 3 Months or Most Recently Relevant to Health Maintenance Insurance [facility] CUSTODIAL OPTIONS (HMO D-SNP) VERONICA GERBER [id number] [facility] Advance Directives Documents on File Type Date Recorded Patient Dice Maker Expl anation Advance Directives and Living Will 09/19/2025 Health Care Proxy Advance Directives and Living Will 04/20/2025 2:32 PM Health Care Proxy Advance Directives and Living Will 02/06/2024 8:49 AM Health Care Proxy Care Teams Road Inspector Relationship Specialty Start Date End Date Colton Nelson MD [address] [place] [address] PCP - General Internal Medicine 05/04/20 [facility] 05/17/25
--- OUTSIDE RECORDS SUMMARY | 2025-10-12 07:23 | XMS_ITS | Encounter Summary ---
Author Organization [employer] Address [address] [place] [address] Care Team Providers Care Grab Driver Name Role Phone Colton Nelson MD Primary Care Provide r Encounter Details Date Type Department Care Team (Latest Contact Info) Description 08/09/2019 Abstract [facility] CONVERSIONS Dental, Provider, DDS Social [...] Description 10/14/2025 2:30 PM EST Office Visit [facility] ADULT DENTAL [address] [place] [address] Bennett Yung, KAELA [address] [place] [address] 10/28/2025 10:15 AM EST Office Visit [facility] ADULT DENTAL [address] [place] [address] Pealr Brielle [address] [place] [address] 11/14/2025 11:00 AM EST Telemedicine [facility]C MED & PEDS [address] [place] [address] Maria Isabel Elam, ELEAZAR [address] [place] [address] documented as of this encounter Visit Diagnoses Not on filedocumented in this encounter Care Teams Grab Driver Relationship Specialty Start Date End Date Colton Nelson MD [address] [place] [address] PCP - General Internal Medicine 05/04/20 [facility] 05/17/25 documented as of this encounter
--- OUTSIDE RECORDS SUMMARY | 2025-10-12 07:23 | XMS_ITS | Encounter Summary ---
Author Organization [employer] Address [address] [facility] 7t [place] [address] Care Team Providers Care Government Service Executive Name Role Phone Colton Nelson MD Primary Care Provide r Reason for Visit * Reason Comments Med Refill Encounter Details Date Type Department Care Team ([facility] st Contact Info) Description 10/09/2023 Refill [facility] MEDICINE [address] [place] [address] Colton Nelson MD [address] [place], [place] [phone] Social History Tobacco Use Types Packs/Day Years [...] Description 10/14/2025 2:30 PM EST Office Visit [facility] ADULT DENTAL [address] [place] [address] Bennett Yung DMD [address] [place] [address] 10/28/2025 10:15 AM EST Office Visit [facility] ADULT DENTAL [address] [place] [address] Brielle Kang [address] [place] [address] 11/14/2025 11:00 AM EST Telemedicine [facility] MED [facility] PEDS [address] [place] [address] Maria Isabel Elam, RN [address] [place] [address] documented as of this encounter Visit Diagnoses Not on filedocumented in this encounter Additional Health Concerns Assessment Noted Time PHQ-9 Depression Total Score: 0 12/17/19 23 10:18 AM EST documented as of this encounter Care Teams Government Service Executive Relationship Specialty Start Date End Date Colton Nelson MD [address] [place] [address] PCP - General Internal Medicine 05/04/20 [facility] 05/17/25 documented as of this encounter
--- OUTSIDE RECORDS SUMMARY | 2025-10-12 07:23 | XMS_ITS | Encounter Summary ---
Author Organization [email or web address] Address [address] [facility] 7t [place] [address] Care Team Providers Care Electric Power Line Repairer Name Role Phone Colton Nelson MD Primary Care Provide r Reason for Visit * Reason Onset Date Comments status of appts 06/23/2025 Encounter Details Date Type Department Care Team ([facility] st Contact Info) Description 06/23/2025 Telephone [facility] ADULT DENTAL [address] [place] [address] Bennett Yung, KAELA [address] [place] [address] status of appts Social History Tobacco Use [...] Miscellaneous Notes * Telephone Encounter - Noelle Johnson - 06/23/2025 12:58 PM EDT Patient called in checking in on status of apt. Active requested. Patients phone was not in workingorder and unsure if he had missed a call to schedule. desk maker does not see authorization in file. Verifying with loan processing supervisor and will reach out to patient to update DR documented in this encounter Plan of Treatment Upcoming Encounters Date Type Department Care Team (Late st Contact Info) Description 10/14/2025 2:30 PM EST Office Visit [facility] ADULT DENTAL [address] [place] [address] Bennett uYng DMD [address] [place] [address] 10/28/2025 10:15 AM EST Office Visit [facility] ADULT DENTAL [address] [place] [address] Brielle Kang [address] [place] [address] 11/14/2025 11:00 AM EST Telemedicine [facility] CHC MED & PEDS [address] [place] [address] Maria Isabel Elam, RN [address] [place] [address] documented as of this encounter Visit Diagnoses Not on filedocumented in this encounter Additional Health Concerns Assessment Noted Time PHQ-9 Depression Total Score: 9 02/05/20 25 2:00 PM EDT documented as of this encounter Care Teams Electric Power Line Repairer Relationship Specialty Start Date End Date Colton Nelson MD [address] [place] [address] PCP - General Internal Medicine 05/04/20 [facility] 05/17/25 documented as of this encounter
--- OUTSIDE RECORDS SUMMARY | 2025-10-12 07:23 | XMS_ITS | Encounter Summary ---
Author Organization [employer] Address [address] [facility] [address] [place] [address] Care Team Providers Care Mule Spinner Name Role Phone Colton Nelson MD Primary Care Provide r Encounter Details Date Type Department Care Team (Latest Contact Info) Description 12/13/2020 Abstract [facility] CONVERSIONS Dental, Provider, DDS Social History [...] Description 10/14/2025 2:30 PM EST Office Visit [facility] ADULT DENTAL [address] [place] [address] Bennett Yung, KAELA [address] [place] [address] 10/28/2025 10:15 AM EST Office Visit [facility] ADULT DENTAL [address] [place] [address] Pearl Brielle [address] [place] [address] 11/14/2025 11:00 AM EST Telemedicine [facility] CHC MED & PEDS [address] [place] [address] Maria Isabel Elam, ELEAZAR [address] [place] [address] documented as of this encounter Visit Diagnoses Not on filedocumented in this encounter Care Teams Mule Spinner Relationship Specialty Start Date End Date Colton Nelson MD [address] [place] [address] PCP - General Internal Medicine 05/04/20 [facility] 05/17/25 documented as of this encounter
--- OUTSIDE RECORDS SUMMARY | 2025-10-12 07:23 | XMS_ITS | Encounter Summary ---
Author Organization [employer] Address [address] [facility] 7t [place] [address] Care Team Providers Care Rn Emergency Name Role Phone Colton Nelson MD Primary Care Provide r Reason for Visit * Reason Comments Med Refill Encounter Details Date Type Department Care Team ([facility] st Contact Info) Description 10/09/2023 Refill [facility] MED & PEDS [address] [place], [place] [phone] Gudelia Flores FNP [address] [place], [place] [phone] Social History Tobacco Use Types Packs/Day Years [...] 2:30 PM EST Office Visit [facility] ADULT DENTAL [address] [place] [address] Bennett Yung DMD [address] [place] [address] 10/28/2025 10:15 AM EST Office Visit [facility] ADULT DENTAL [address] [place] [address] Brielle Kang [address] [place] [address] 11/14/2025 11:00 AM EST Telemedicine [facility] MED [facility] PEDS [address] [place] [address] Maria Isabel Elam, RN [address] [place] [address] documented as of this encounter Visit Diagnoses Not on filedocumented in this encounter Additional Health Concerns Assessment Noted Time PHQ-9 Depression Total Score: 0 12/17/19 23 10:18 AM EST documented as of this encounter Care Teams Rn Emergency Relationship Specialty Start Date End Date Colton Nelson MD [address] [place] [address] PCP - General Internal Medicine 05/04/20 [facility] 05/17/25 documented as of this encounter
--- OUTSIDE RECORDS SUMMARY | 2025-10-12 07:23 | XMS_ITS | Patient Health Record ---
Author Organization [facility] Address [address] [place] [phone] Care Team Providers Care Complex Care Nurse Name Role Phone Kalyani De Leon MD, [...] Active Simvastatin Active Gabapentin Active Vitamin D 3 Orally Once a day Active MiraLax (colon prep) 8.3 ounce ((238) grams mixed with Gatorade or Crystal Light orally begin at 5:00 p.m. the day before the procedure; Duration: 1 day 06/22/2020 Active Flovent HFA Active oxyCODONE-Acetaminophen Active Viagra Active Testosterone Cypionate Active Levocetirizine Dihydrochloride Active Albuterol Sulfate HFA Active rOPINIRole HCl Activ e Ipratropium-Albuterol Active Immunizations Vaccine Route Administration Date Status Comme nts Influenza Unknown 08/24/2019 Administered Social History Tobacco Use: Social History Observation Description Date Details (start date - stop date) Former Smoker NA - NA Social History Drugs/Alcohol: Social Info Question Answer Notes Alcohol Screen Did you have a drink containing alcohol in the past year? Yes How often did you have a drink containing alcohol in the past year? 2 to 4 times a month (2 points) How many drinks did you have on a typical day when you were drinking in the past year? 1 or 2 drinks (0 point) How often did you have 6 or more drinks on one occasion in the past year? Less than monthly (1 point) Points 3 Interpretation Negative Tobacco Use: Social Info Question Answer Notes Tobacco Use/Smoking Patient is a former smoker When did you start smoking? 14 years old When did you stop smoking? 1987 How long has it been since you last smoked? > 10 years Additional Findings: Tobacco Non-User Ex-cigaret te smoker Additional Details Category Social Info Options Details Miscellaneous: Marital status: Occupation: retired Section Notes: Drinks beers on the weekend, Rum/Whiskey every now and then (ocassionally) Problems Problem Type SNOMED Code ICD Code Onset Dates Problem Status W/U Status Risk Notes Problem Colon cancer screening (236602997) Colon cancer screening (Z12.11) Active confirmed Problem Long-term current use of antiplatelet drug (751973874024607 ) Long-term use of aspirin therapy (Z79.82) Active confirmed Problem Long-term current use of drug therapy (658785119) 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 [address] [place] [phone] [id number] TANIA SALMERON Self - patient is the insured Medical (General) History Medical History History ICD Code hypertension type II diabetes asthma Arthritis back pain cirrhosis elevated cholesterol restless leg syndrome COPD ALLY/CPAP Surgical History Surgery Date(Month/Year) Pinched Nerve Back of Head cholecystectomy
--- OUTSIDE RECORDS SUMMARY | 2025-10-12 07:24 | XMS_ITS | Encounter Summary ---
Author Organization [employer] Address [address] [facility] 7t [place] [address] Care Team Providers Care Burlap Roll Coverer Name Role Phone Colton Nelson MD Primary Care Provide r Reason for Visit * Reason Onset Date Comments Reschedule 02/18/2024 Encounter Details Date Type Department Care Team ([facility] st Contact Info) Description 02/18/2024 Telephone [facility] MEDICINE [address] [place], [place] [phone] Colton Nelson MD [address] [place], [place] [phone] Reschedule Social History Tobacco Use Types Packs/Day [...] Tc from pt requesting to reschedule 02/17 FLIGHT MANAGER appointment. Please contact pt at [phone] documented in this encounter Plan of Treatment Upcoming Encounters Date Type Department Care Team (Late st Contact Info) Description 10/14/2025 2:30 PM EST Office Visit [facility] ADULT DENTAL [address] [place] [address] Bennett Yung, KAELA [address] [place] [address] 10/28/2025 10:15 AM EST Office Visit [facility] ADULT DENTAL [address] [place] [address] Brielle Kang [address] [place] [address] 11/14/2025 11:00 AM EST Telemedicine [facility] CHC MED & PEDS [address] [place] [address] Maria Isabel Elam, ELEAZAR [address] [place] [address] documented as of this encounter Visit Diagnoses Not on filedocumented in this encounter Additional Health Concerns Assessment Noted Time PHQ-9 Depression Total Score: 0 12/17/19 23 10:18 AM EST documented as of this encounter Care Teams Burlap Roll Coverer Relationship Specialty Start Date End Date Colton Nelson MD [address] [place] [address] PCP - General Internal Medicine 05/04/20 [facility] 05/17/25 documented as of this encounter
--- OUTSIDE RECORDS SUMMARY | 2025-10-12 07:24 | XMS_ITS | Encounter Summary ---
Author Organization [employer] Address [address] [facility] 7t [place] [address] Care Team Providers Care Inside Barrel Lathe Operator Name Role Phone Colton Nelson MD Primary Care Provide r Reason for Visit * Reason Comments Med Refill Encounter Details Date Type Department Care Team ([facility] st Contact Info) Description 04/16/2024 Refill [facility] MEDICINE [address] [place], [place] [phone] Constance Wiggins MD [address] [place], [place] [phone] Chronic obstructive pulmonary disease, unspecified COPD type [...] Description 10/14/2025 2:30 PM EST Office Visit [facility] ADULT DENTAL [address] [place] [address] Bennett Yung DMD [address] [place] [address] 10/28/2025 10:15 AM EST Office Visit [facility] ADULT DENTAL [address] [place] [address] Pearl, Brielle [address] [place] [address] 11/14/2025 11:00 AM EST Telemedicine [facility] CHC MED & PEDS [address] [place], [place] [phone] Maria Isabel Elam, RN [address] [place] [address] documented as of this encounter Visit Diagnoses Diagnosis Chronic obstructive pulmonary disease, unspecified COPD type (CMS/HCC) (HCC) documented in this encounter Additional Health Concerns Assessment Noted Time PHQ-9 Depression Total Score: 0 12/17/19 23 10:18 AM EST documented as of this encounter Care Teams Inside Barrel Lathe Operator Relationship Specialty Start Date End Date Colton Nelson MD [address] [place] [address] PCP - General Internal Medicine 05/04/20 [facility] 05/17/25 documented as of this encounter
--- OUTSIDE RECORDS SUMMARY | 2025-10-12 07:24 | XMS_ITS | Encounter Summary ---
Author Organization [employer] Address [address] [facility] [address] [place] [address] Care Team Providers Care Sleeve Machine Tender Name Role Phone Colton Nelson MD Primary Care Provide r Reason for Visit * Reason Onset Date Comments Appointment Request 12/23/2023 Encounter Details Date Type Department Care Team ([facility] st Contact Info) Description 12/23/2023 Telephone [facility] MEDICINE [address] [place], [place] [phone] Colton Nelson MD [address] [place], [place] [phone] Appointment Request Social History Tobacco Use Types [...] with pcp 12/18/23. Please contact pt at [phone]. documented in this encounter Plan of Treatment Upcoming Encounters Date Type Department Care Team (Late st Contact Info) Description 10/14/2025 2:30 PM EST Office Visit [facility] ADULT DENTAL [address] [place] [address] Bennett Yung, KAELA [address] [place] [address] 10/28/2025 10:15 AM EST Office Visit [facility] ADULT DENTAL [address] [place] [address] Brielle Kang [address] [place] [address] 11/14/2025 11:00 AM EST Telemedicine [facility] CHC MED & PEDS [address] [place] [address] Maria Isabel Elam, ELEAZAR [address] [place] [address] documented as of this encounter Visit Diagnoses Not on filedocumented in this encounter Additional Health Concerns Assessment Noted Time PHQ-9 Depression Total Score: 0 12/17/19 23 10:18 AM EST documented as of this encounter Care Teams Sleeve Machine Tender Relationship Specialty Start Date End Date Colton Nelson MD [address] [place] [address] PCP - General Internal Medicine 05/04/20 [facility] 05/17/25 documented as of this encounter
--- OUTSIDE RECORDS SUMMARY | 2025-10-12 07:24 | XMS_ITS | Encounter Summary ---
Author Organization [employer] Address [address] [facility] [address] [place] [address] Care Team Providers Care Manager Spa Name Role Phone Colton Nelson MD Primary Care Provide r Reason for Visit * Reason Comments Med Refill Encounter Details Date Type Department Care Team (Late st Contact Info) Description 04/09/[address] [facility] CH[facility] MED & PEDS [address] [place] [address] Colton Nelson MD [address] [place] [address] Social History Tobacco Use Types Packs/Day Years [...] Description 10/14/2025 2:30 PM EST Office Visit [facility] ADULT DENTAL [address] [place] [address] Bennett Yung, DMD [address] [place] [address] 10/28/2025 10:15 AM EST Office Visit [facility] ADULT DENTAL [address] [place] [address] Pearl, Brielle [address] [place] [address] 11/14/2025 11:[address] [facility] CHC MED & PEDS [address] [place], [place] [phone] Maria Isabel Elam, RN [address] [place], [place] [phone] documented as of this encounter Visit Diagnoses Not on filedocumented in this encounter Additional Health Concerns Assessment Noted Time PHQ-9 Depression Total Score: 0 12/17/19 23 10:18 AM EST documented as of this encounter Care Teams Manager Spa Relationship Specialty Start Date End Date Colton Nelson MD [address] [place] [address] PCP - General Internal Medicine 05/04/20 [facility] 05/17/25 documented as of this encounter
--- OUTSIDE RECORDS SUMMARY | 2025-10-12 07:24 | XMS_ITS | Encounter Summary ---
Author Organization [employer] Address [address] [facility] [address] [place] [address] Care Team Providers Care Commercial Accountant Name Role Phone Colton Nelson MD Primary Care Provide r Reason for Visit * Reason Comments Med Refill Encounter Details Date Type Department Care Team (Late st Contact Info) Description 04/17/2023 Refill [facility] CHC MED & PEDS [address] [place] [address] Colton Nelson MD 230 [place] [address] Social History Tobacco Use Types Packs/Day Years [...] Description 10/14/2025 2:30 PM EST Office Visit [facility] ADULT DENTAL 230 [place] [address] Bennett Yung, DMD 230 [place] [address] 10/28/2025 10:15 AM EST Office Visit [facility] ADULT DENTAL 230 [place] [address] Pearl, Brielle 230 [place] [address] 11/14/2025 11:00 AM EST Telemedicine [facility] CHC MED & PEDS 505 [place], [place] [phone] Maria Isabel Elam, RN 505 [place], [place] [phone] documented as of this encounter Visit Diagnoses Not on filedocumented in this encounter Additional Health Concerns Assessment Noted Time PHQ-9 Depression Total Score: 0 12/17/19 23 10:18 AM EST documented as of this encounter Care Teams Commercial Accountant Relationship Specialty Start Date End Date Colton Nelson MD [address] [place] [address] PCP - General Internal Medicine 05/04/20 [facility] 05/17/25 documented as of this encounter
--- OUTSIDE RECORDS SUMMARY | 2025-10-12 07:24 | XMS_ITS | Encounter Summary ---
Author Organization [employer] Address [address] [facility] 7t [place] [address] Care Team Providers Care Sales Agent Fire Insurance Name Role Phone Colton Nelson MD Primary Care Provide r Reason for Visit * Reason Comments Med Refill Encounter Details Date Type Department Care Team ([facility] st Contact Info) Description 04/21/2024 Refill [facility] MEDICINE 230 [place] [address] Constance Wiggins MD [address] [place], [place] [phone] Chronic obstructive pulmonary disease, unspecified COPD type [...] Description 10/14/2025 2:30 PM EST Office Visit [facility] ADULT DENTAL 230 [place] [address] Bennett Yung DMD 230 [place] [address] 10/28/2025 10:15 AM EST Office Visit [facility] ADULT DENTAL 230 [place] [address] Pearl, Brielle 230 [place] [address] 11/14/2025 11:00 AM EST Telemedicine [facility] CHC MED & PEDS 505 [place], [place] [phone] Maria Isabel Elam, RN 505 [place] [address] documented as of this encounter Visit Diagnoses Diagnosis Chronic obstructive pulmonary disease, unspecified COPD type (CMS/HCC) (HCC) documented in this encounter Additional Health Concerns Assessment Noted Time PHQ-9 Depression Total Score: 0 12/17/19 23 10:18 AM EST documented as of this encounter Care Teams Sales Agent Fire Insurance Relationship Specialty Start Date End Date Colton Nelson MD 230 [place] [address] PCP - General Internal Medicine 05/04/20 [facility] 05/17/25 documented as of this encounter
--- OUTSIDE RECORDS SUMMARY | 2025-10-12 07:25 | XMS_ITS ---
Author Name Rashawn LYON, Mr. Maureen Antunez Address [address] [place] [address] Phone [phone] [facility] Care Team Providers Care Drug Safety Assistant Name Role Phone Alan Morocho Unavailable [phone] Reason for Referral Not Available Allergies, adverse [...] tive Time Current Smoking Status Former smoker 2025-09-24 11 Sex Male History of Procedures Procedures [...] (do not use for phone, instead use [id number]) [id number] 2022-09-23 No Data Available No Data Availa [...] completed by a nacho and video using [employer] Tablet. Introductory visit with [employer] to establish care. Today, patient has chief complaint of: establishing care.Reviewed Allergies, Medications, Active Medical conditions, past medical/surgical history, Social history. 2022-09-23 Most recent hospital stay(s) or ER visit(s) and precipitating factors: Denies recent ER/hospital visit 2022-09-23 Advance care planbenita blandon discussion. Conversation today with: member; Advance Care PlanDo you have an Advance Care Plan? NoDo you have a Durable Power of Community Health Educator for Healthcare, or Healthcare Proxy? NoIf so, Who?Code Status: UnknownOther Details of discussion (Who was present, patients description of wishes/goals):
--- OUTSIDE RECORDS SUMMARY | 2025-10-12 07:25 | XMS_ITS | Encounter Summary ---
Author Organization [employer] Address [address] [facility] 7t [place] [address] Care Team Providers Care Robotic Welder Name Role Phone Colton Nelson MD Primary Care Provide r Encounter Details Date Type Department Care Team (Late Contact Info) Description 04/03/2023 Abstract [facility] MEDICINE [address] [place] [address] Colton Nelson MD 230 [place] [address] Social History Tobacco Use Types Packs/Day Years [...] Department Care Team (Late Contact Info) Description 10/14/2025 2:30 PM EST Office Visit [facility] ADULT DENTAL [address] [place], [place] [phone] AgaBennett, DMD [address] [place] [address] 10/28/2025 10:15 AM EST Office Visit [facility] ADULT DENTAL [address] [place] [address] Brielle Kang [address] [place] [address] 11/14/2025 11:00 AM EST Telemedicine [facility] CHC MED & PEDS 505 [place], [place] [phone] Maria Isabel Elam, RN 505 [place], [place] documented as of this encounter Procedures Procedure Name Priority Date/Time Associated Diagnosis Comments COLONOSCOPY Routine 08/18/2020 documented in this encounter Results * Colonoscopy (08/18/2020) Colonoscopy Normal Normal 08/18/2020 Narrative Apple Jacquelin - 08/18/2020 9:26 AM EDT Recommended 10 year follow up Historical Provider HEALTH MAINTENANCE Final Result documented in this encounter Visit Diagnoses Not on filedocumented in this encounter Additional Health Concerns Assessment Noted Time PHQ-9 Depression Total Score: 0 12/17/19 23 10:18 AM EST documented as of this encounter Care Teams Robotic Welder Relationship Specialty Start Date End Date Colton Nelson MD 230 [place] [address] PCP - General Internal Medicine 05/04/20 [facility] 05/17/25 documented as of this encounter
--- OUTSIDE RECORDS SUMMARY | 2025-10-12 07:26 | XMS_ITS | Encounter Summary ---
Author Organization [employer] Address [address] [facility] 7t [place] [address] Care Team Providers Care Tiedown Operator Name Role Phone Colton Nelson MD Primary Care Provide r Reason for Visit * Reason Comments Med Refill Encounter Details Date Type Department Care Team ([facility] st Contact Info) Description 09/23/2025 Refill [facility] CHC MED & PEDS [address] [place], [place] [phone] Colton Nelson MD 230 [place], [place] [phone] Chronic obstructive pulmonary disease, unspecified COPD type (CMS/HCC) (HCC) Social History Tobacco Use Types Packs/Day Years [...] Description 10/14/2025 2:30 PM EST Office Visit [facility] ADULT DENTAL [address] [place] [address] Bennett Yung, KAELA [address] [place] [address] 10/28/2025 10:15 AM EST Office Visit [facility] ADULT DENTAL [address] [place] [address] Brielle Kang 230 [place] [address] 11/14/2025 11:00 AM EST Telemedicine [facility] CHC MED & PEDS [address] [place] [address] Maria Isabel Elam, ELEAZAR 505 [place] [address] documented as of this encounter Visit Diagnoses Diagnosis Chronic obstructive pulmonary disease, unspecified COPD type (CMS/HCC) (HCC) documented in this encounter Additional Health Concerns Assessment Noted Time PHQ-9 Depression Total Score: 12 09/12/ 025 2:23 PM EDT documented as of this encounter Care Teams Tiedown Operator Relationship Specialty Start Date End Date Colton Nelson MD 230 [place] [address] PCP - General Internal Medicine 05/04/20 [facility] 05/17/25 documented as of this encounter
--- OUTSIDE RECORDS SUMMARY | 2025-10-12 07:26 | XMS_ITS | Encounter Summary ---
Author Organization [employer] Address [address] [place] [address] 7 [place] [address] Care Team Providers Care Family Assistant Name Role Phone Colton Nelson MD Primary Care Provide r Reason for Visit * Reason Comments Med Refill Encounter Details Date Type Department Care Team (Late st Contact Info) Description 03/27/2023 Refill [facility] MEDICINE [address] [place] [address] Roxi Scott FNP Social History Tobacco Use [...] 2:30 PM EST Office Visit [facility] ADULT DENTAL [address] [place] [address] Bennett Yung, KAELA [address] [place], [place] [phone] 10/28/2025 10:15 AM EST Office Visit [facility] ADULT DENTAL [address] [place] [address] Brielle Kang [address] [place] [address] 11/14/2025 11:00 AM EST Telemedicine [facility] CHC MED & PEDS 505 [place] [address] Maria Isabel Elam, RN 505 [place] [address] documented as of this encounter Visit Diagnoses Not on filedocumented in this encounter Additional Health Concerns Assessment Noted Time PHQ-9 Depression Total Score: 0 12/17/19 23 10:18 AM EST documented as of this encounter Care Teams Family Assistant Relationship Specialty Start Date End Date Colton Nelson MD 230 [place] [address] PCP - General Internal Medicine 05/04/20 [facility] 05/17/25 documented as of this encounter
--- OUTSIDE RECORDS SUMMARY | 2025-10-12 07:26 | XMS_ITS | Encounter Summary ---
Author Organization [employer] Address [address] [facility] [address] [place] [address] Care Team Providers Care Label Drier Name Role Phone Colton Nelson MD Primary Care Provide r Reason for Visit * Reason Onset Date Comments Appointment Request 11/18/2024 Encounter Details Date Type Department Care Team ([facility] st Contact Info) Description 11/18/2024 Telephone [facility] MEDICINE [address] [place], [place] [phone] Colton Nelson MD 230 [place] [address] Appointment Request Social History Tobacco Use Types [...] pt calling requesting call back to reschedule SUPERVISOR PROP MAKING visit. Please contact pt at [phone]. (French Speaker) documented in this encounter Plan of Treatment Upcoming Encounters Date Type Department Care Team (Late st Contact Info) Description 10/14/2025 2:30 PM EST Office Visit [facility] ADULT DENTAL [address] [place] [address] Bennett Yung, KAELA 230 [place] [address] 10/28/2025 10:15 AM EST Office Visit [facility] ADULT DENTAL [address] [place] [address] Brielle Kang [address] [place] [address] 11/14/2025 11:00 AM EST Telemedicine [facility] MED & PEDS 505 [place] [address] Maria Isabel Elam, RN 505 [place] [address] documented as of this encounter Visit Diagnoses Not on filedocumented in this encounter Additional Health Concerns Assessment Noted Time PHQ-9 Depression Total Score: 0 05/11/20 24 1:30 PM EDT documented as of this encounter Care Teams Label Drier Relationship Specialty Start Date End Date Colton Nelson MD [address] [place] [address] PCP - General Internal Medicine 05/04/20 [facility] 05/17/25 documented as of this encounter
--- OUTSIDE RECORDS SUMMARY | 2025-10-12 07:26 | XMS_ITS | Encounter Summary ---
Author Organization [employer] Address [address] [facility] 7t [place] [address] Care Team Providers Care Family Caseworker Name Role Phone Colton Nelson MD Primary Care Provide r Reason for Visit * Reason Comments Med Refill Encounter Details Date Type Department Care Team ([facility] st Contact Info) Description 06/18/[address] [facility] MEDICINE 230 [place], [place] [phone] Colton Nelson MD 230 [place], [place] [phone] Chronic obstructive pulmonary disease, unspecified COPD type [...] 10/14/2025 2:30 PM EST Office Visit [facility] ADULT DENTAL 230 [place] [address] Bennett Yung, KAELA 230 [place] [address] 10/28/2025 10:15 AM EST Office Visit [facility] ADULT DENTAL 230 [place] [address] Brielle Kang 230 [place] [address] 11/14/2025 11:[address] [facility] CHC MED & PEDS 505 [place] [address] Maria Isabel Elam, RN 505 [place] [address] documented as of this encounter Visit Diagnoses Diagnosis Chronic obstructive pulmonary disease, unspecified COPD type (CMS/HCC) ([facility]) documented in this encounter Additional Health Concerns Assessment Noted Time PHQ-9 Depression Total Score: 0 05/11/20 24 1:30 PM EDT documented as of this encounter Care Teams Family Caseworker Relationship Specialty Start Date End Date Colton Nelson MD [address] [place] [address] PCP - General Internal Medicine 05/04/20 [facility] 05/17/25 documented as of this encounter
--- OUTSIDE RECORDS SUMMARY | 2025-10-12 07:26 | XMS_ITS | Encounter Summary ---
Author Organization [employer] Address [address] [facility] 7[address] [place] [address] Care Team Providers Care Field Account Manager Name Role Phone Colton Nelson MD Primary Care Provide r Encounter Details Date Type Department Care Team (Latest Contact Info) Description 12/06/2021 Abstract [facility] CONVERSIONS Dental, Provider, DDS Social History [...] Description 10/14/2025 2:30 PM EST Office Visit [facility] ADULT DENTAL [address] [place] [address] Bennett Yung, KAELA [address] [place] [address] 10/28/2025 10:15 AM EST Office Visit [facility] ADULT DENTAL [address] [place] [address] Pearl Brielle [address] [place] [address] 11/14/2025 11:00 AM EST Telemedicine [facility] CHC MED & PEDS [address] [place] [address] Maria Isabel Elam, ELEAZAR 505 [place] [address] documented as of this encounter Visit Diagnoses Not on filedocumented in this encounter Care Teams Field Account Manager Relationship Specialty Start Date End Date Colton Nelson MD [address] [place] [address] PCP - General Internal Medicine 05/04/20 [facility] 05/17/25 documented as of this encounter
--- OUTSIDE RECORDS SUMMARY | 2025-10-12 07:26 | XMS_ITS | Encounter Summary ---
Author Organization [employer] Address [address] [facility] 7t [place] [address] Care Team Providers Care Salvage Laborer Name Role Phone Colton Nelson MD Primary Care Provide r Reason for Visit * Reason Onset Date Comments Call Back Request 05/13/2024 Encounter Details Date Type Department Care Team ([facility] st Contact Info) Description 05/13/2024 Telephone [facility] MEDICINE [address] [place], [place] [phone] Colton Nelson MD [address] [place] [address] Call Back Request Social History Tobacco Use [...] from pt requesting a call back with envelope maker, stated think he needs an appt but not sure about it. documented in this encounter Plan of Treatment Upcoming Encounters Date Type Department Care Team (Late st Contact Info) Description 10/14/2025 2:30 PM EST Office Visit [facility] ADULT DENTAL [address] [place] [address] Bennett Yung, DMD 230 [place] [address] 10/28/2025 10:15 AM EST Office Visit [facility] ADULT DENTAL [address] [place] [address] Brielle Kang 230 [place] [address] 11/14/2025 11:00 AM EST Telemedicine [facility] CHC MED & PEDS 505 [place] [address] Maria Isabel Elam, RN 505 [place] [address] documented as of this encounter Visit Diagnoses Not on filedocumented in this encounter Additional Health Concerns Assessment Noted Time PHQ-9 Depression Total Score: 0 05/11/20 24 1:30 PM EDT documented as of this encounter Care Teams Salvage Laborer Relationship Specialty Start Date End Date Colton Nelson MD [address] [place] [address] PCP - General Internal Medicine 05/04/20 Home [facility] 05/17/25 documented as of this encounter
--- OUTSIDE RECORDS SUMMARY | 2025-10-12 07:26 | XMS_ITS | Encounter Summary ---
Author Organization [employer] Address [address] [facility] 7t [place] [address] Care Team Providers Care Shuttle Repairer Name Role Phone Colton Nelson MD Primary Care Provide r Reason for Visit * Reason Comments Med Refill Encounter Details Date Type Department Care Team ([facility] st Contact Info) Description 05/17/2024 Refill [facility] MEDICINE [address] [place], [place] [phone] Ashley Carrion, ANP 230 [place] [address] Lumbar disc herniation Social History Tobacco Use [...] Description 10/14/2025 2:30 PM EST Office Visit [facility] ADULT DENTAL [address] [place] [address] Bennett Yung, KAELA 230 [place] [address] 10/28/2025 10:15 AM EST Office Visit [facility] ADULT DENTAL [address] [place] [address] Xavier Kangaris 230 [place] [address] 11/14/2025 11:00 AM EST Telemedicine [facility] CHC MED & PEDS 505 [place] [address] Maria Isabel Elam, RN 505 [place] [address] documented as of this encounter Visit Diagnoses Diagnosis Lumbar disc herniation Displacement of lumbar intervertebral disc without myelopathy documented in this encounter Additional Health Concerns Assessment Noted Time PHQ-9 Depression Total Score: 0 05/11/20 24 1:30 PM EDT documented as of this encounter Care Teams Shuttle Repairer Relationship Specialty Start Date End Date Colton Nelson MD [address] [place] [address] PCP - General Internal Medicine 05/04/20 [facility] 05/17/25 documented as of this encounter
--- OUTSIDE RECORDS SUMMARY | 2025-10-12 07:26 | XMS_ITS | Encounter Summary ---
Author Organization [employer] Address [address] [facility] [address] 7t [place] [address] Care Team Providers Care Cold Patcher Name Role Phone Colton Nelson MD Primary Care Provide r Reason for Visit * Reason Comments Med Refill Encounter Details Date Type Department Care Team ([facility] st Contact Info) Description 08/05/2025 Refill [facility] CHC MED & PEDS [address] [place], [place] [phone] Colton Nelson MD 230 [place] [address] Chronic obstructive pulmonary disease, unspecified COPD type [...] Description 10/14/2025 2:30 PM EST Office Visit [facility] ADULT DENTAL 230 [place] [address] Bennett Yung, KAELA 230 [place] [address] 10/28/2025 10:15 AM EST Office Visit [facility] ADULT DENTAL 230 [place] [address] Pearl Brielle [address] [place] [address] 11/14/2025 11:00 AM EST Telemedicine [facility] CHC MED & PEDS 505 [place], [place] [phone] Maria Isabel Elam, ELEAZAR 505 [place] [address] documented as of this encounter Visit Diagnoses Diagnosis Chronic obstructive pulmonary disease, unspecified COPD type (CMS/HCC) (HCC) documented in this encounter Additional Health Concerns Assessment Noted Time PHQ-9 Depression Total Score: 9 02/05/20 25 2:00 PM EDT documented as of this encounter Care Teams Cold Patcher Relationship Specialty Start Date End Date Coltno Nelson MD 230 [place] [address] PCP - General Internal Medicine 05/04/20 [facility] 05/17/25 documented as of this encounter
== END 2025-10-11 14:09 | disposition home or self-care (01) ==
LOC: HO.HPS 13:44
PROVIDERS: PCP Internal Medicine; Visit Provider Internal Medicine
DX: J44.9 Chronic obstructive pulmonary disease, unspecified (principal); J30.9 Allergic rhinitis, unspecified; G25.81 Restless legs syndrome; G47.33 Obstructive sleep apnea (adult) (pediatric); Z99.89 Dependence on other enabling machines and devices
CPT/HCPCS: 99213

== ENCOUNTER → 2025-10-11 13:43 | Outpatient (BNVA) | payer OTHER, SELFPAY | PROVIDERS: PCP Internal Medicine; Visit Provider Internal Medicine | DX: J45.909 Unspecified asthma, uncomplicated (principal); Z91.09 Other allergy status, other than to drugs and biological substances; F17.210 Nicotine dependence, cigarettes, uncomplicated | CPT/HCPCS: 99212 ==

== ENCOUNTER 2025-11-03 14:31 | Outpatient (AMB) | payer OTHER, SELFPAY ==
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
== END 2025-11-03 15:01 | disposition home or self-care (01) ==
LOC: HO.HSM 14:32
PROVIDERS: PCP Internal Medicine; Visit Provider Psychiatry & Neurology Neurology
DX: G31.84 Mild cognitive impairment of uncertain or unknown etiology (principal); G25.81 Restless legs syndrome
CPT/HCPCS: 99213

== ENCOUNTER → 2025-11-03 14:31 | Outpatient (BNVA) | payer OTHER, SELFPAY | PROVIDERS: PCP Internal Medicine; Visit Provider Psychiatry & Neurology Neurology | DX: G25.81 Restless legs syndrome (principal); G31.84 Mild cognitive impairment of uncertain or unknown etiology; I10 Essential (primary) hypertension; Z87.891 Personal history of nicotine dependence | CPT/HCPCS: 99212 ==

== ENCOUNTER 2025-11-12 16:55 | Emergency (ER) | payer OTHER, SELFPAY ==
--- NOTE | ~2025-11-12 | XR_ITS ---
CLINICAL HISTORY: chest apain 2 view chest x-ray Comparison: CR/IN/SR - XR CHEST 2 VIEWS - 02/19/24 13:19 EDT Findings: No consolidation or effusion. Heart size is normal. No acute fracture. IMPRESSION: 1. No acute findings. This document has been electronically signed by: Scottie Valadez MD on 11/12/2025 17:48:07
[2025-11-12 17:22] VITALS: BP 166/77; PULSE 78; RESP 20; TEMP 36.8; O2SAT 95; BMI 30.7
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
--- NOTE | 2025-11-12 17:24 | ECG_ITS ---
Test Reason : CP Blood Pressure : */* mmHG Vent. Rate : 77 BPM Atrial Rate : 77 BPM P-R Int : 188 ms QRS Dur : 90 ms QT Int : 382 ms P-R-T Axes : 76 -8 70 degrees QTcB Int : 432 ms Normal sinus rhythm Normal ECG When compared with ECG of 19-Feb-2024 13:35, Premature atrial complexes are no longer Present Referred By: Mariama Davidson Electronically Signed By: Phu New
--- NOTE | 2025-11-12 17:31 | MHC.EDTECH ---
delay in CP EKG as Pt was taken by imaging before this tech could bring Pt back to triage room. butadiene converter operator is aware.
[2025-11-12 17:50] LABS: MANUAL DIFF FLAG NO
[2025-11-12 17:58] LABS: Hematocrit 40.7 % (42.0-52.0); Hemoglobin 13.7 g/dl (14.0-18.0); Imm Gran Abs Auto 0.03 X10*3/uL (0.00-0.03); Imm Gran Pct Auto 0.3 % (0.0-0.4); Lymphocytes Absolute Auto 1.6 X10*3/uL (1.2-4.9); Mean Corpuscular HGB Conc 33.7 g/dl (31.0-36.0); Mean Corpuscular Hemoglobin 30.6 pg (27.0-33.0); Mean Corpuscular Volume 91.1 fL (80.0-98.0); NRBC Abs Auto 0.000 X10*3/uL (0.0-0.012); NRBC Pct Auto 0.0 /100WBC (0.0-0.2); Platelet Count 251 X10*3/uL (160-400); Red Blood Count 4.47 X10*6/uL (4.60-5.80); White Blood Count 10.0 X10*3/uL (4.8-10.8)
[2025-11-12 18:00] VITALS: BP 160/70; PULSE 78; RESP 18; O2SAT 96
[2025-11-12 18:09] LABS: Alanine Aminotransferase 23 U/L (0-40); Albumin Level 4.6 g/dL (3.5-5.0); Alkaline Phosphatase 79 U/L (39-117); Anion Gap 14 (12-20); Aspartate Amino Transferase 26 U/L (5-37); Blood Urea Nitrogen 19 mg/dL (9-16); Calcium 9.9 mg/dL (8.4-10.2); Carbon Dioxide 27 mmol/L (22-29); Chloride 105 mmol/L (96-108); Creatinine Clr Calc Pharmacy 64.3; Estimated Glomerular Filt Rate > 60; Potassium 3.9 mmol/L (3.3-5.1); Sodium 142 mmol/L (135-145); Total Protein 7.7 g/dL (6.5-8.0)
[2025-11-12 18:16] LABS: Troponin-I High Sensitivity 4.2 ng/L (<3.5-35.0)
[2025-11-12 19:48] VITALS: BP 139/70; PULSE 64; RESP 18; O2SAT 96
--- OUTSIDE RECORDS SUMMARY | 2025-11-12 19:51 | XMS_ITS | Encounter Summary ---
Author Organization [employer] Address [address] [facility] [address] [place] [address] Care Team Providers Care User Experience Architect Name Role Phone Colton Nelson MD Primary Care Provide r Reason for Visit * Reason Comments Med Refill Encounter Details Date Type Department Care Team ([facility] st Contact Info) Description 10/09/2023 Refill [facility] MEDICINE [address] [place], [place] [phone] Colton Nelson MD [address] [place], [place] [phone] Social History Tobacco Use Types Packs/Day Years [...] Care Team (Late st Contact Info) Description 11/14/2025 11:00 AM EST Telemedicine [facility] CHC MED & PEDS [address] [place] [address] Maria Isabel Elam, RN [address] [place] [address] 12/19/2025 2:30 PM EST Office Visit [facility] ADULT DENTAL [address] [place] [address] Bennett Yung, DMD [address] [place] [address] 05/01/2026 2:15 PM EDT Office Visit [facility] ADULT DENTAL [address] [place] [address] Brielle Kang [address] [place] [address] documented as of this encounter Visit Diagnoses Not on filedocumented in this encounter Additional Health Concerns Assessment Noted Time PHQ-9 Depression Total Score: 0 12/17/19 23 10:18 AM EST documented as of this encounter Care Teams User Experience Architect Relationship Specialty Start Date End Date Colton Nelson MD [address] [place] [address] PCP - General Internal Medicine 05/04/20 [facility] 05/17/25 documented as of this encounter
--- OUTSIDE RECORDS SUMMARY | 2025-11-12 19:51 | XMS_ITS | Encounter Summary ---
Author Organization [employer] Address [address] [facility] [address] [place] [address] Care Team Providers Care Fitter Armament Name Role Phone Colton Nelson MD Primary Care Provide r Reason for Visit * Reason Onset Date Comments Appointment Request 10/30/2023 Encounter Details Date Type Department Care Team ([facility] st Contact Info) Description 10/30/2023 Telephone [facility] MEDICINE [address] [place], [place] [phone] Colton Nelson MD [address] [place], [place] [phone] Appointment Request Social History Tobacco Use Types [...] Tc from pt 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 Please contact pt at [phone]. documented in this encounter Plan of Treatment Upcoming Encounters Date Type Department Care Team (Late st Contact Info) Description 11/14/2025 11:00 AM EST Telemedicine [facility] CHC MED & PEDS [address] [place] [address] Maria Isabel Elam, RN [address] [place] [address] 12/19/2025 2:30 PM EST Office Visit [facility] ADULT DENTAL [address] [place] [address] Bennett Yung DMD [address] [place] [address] 05/01/2026 2:15 PM EDT Office Visit [facility] ADULT DENTAL [address] [place] [address] Brielle Kang [address] [place] [address] documented as of this encounter Visit Diagnoses Not on filedocumented in this encounter Additional Health Concerns Assessment Noted Time PHQ-9 Depression Total Score: 0 12/17/19 23 10:18 AM EST documented as of this encounter Care Teams Fitter Armament Relationship Specialty Start Date End Date Colton Nelson MD [address] [place] [address] PCP - General Internal Medicine 05/04/20 Home [facility] 05/17/25 documented as of this encounter
--- OUTSIDE RECORDS SUMMARY | 2025-11-12 19:51 | XMS_ITS | Encounter Summary ---
Author Organization [employer] Address [address] [place] [address] Care Team Providers Care Health Professor Name Role Phone Colton Nelson MD Primary Care Provide r Encounter Details Date Type Department Care Team (Late st Contact Info) Description 11/13/2023 Abstract [facility] ADULT DENTAL [address] [place] [address] Xavier Kangaris [address] [place] [address] Social History Tobacco Use Types Packs/Day Years [...] Info) Description 11/14/2025 11:00 AM EST Telemedicine [facility] CHC MED & PEDS [address] [place] [address] Maria Isabel Elam, RN [address] [place] [address] 12/19/2025 2:30 PM EST Office Visit [facility] ADULT DENTAL [address] [place] [address] Bennett Yung DMD [address] [place] [address] 05/01/2026 2:15 PM EDT Office Visit [facility] ADULT DENTAL [address] [place] [address] Brielle Kang [address] [place] [address] documented as of this encounter Visit Diagnoses Not on filedocumented in this encounter Additional Health Concerns Assessment Noted Time PHQ-9 Depression Total Score: 0 12/17/19 23 10:18 AM EST documented as of this encounter Care Teams Health Professor Relationship Specialty Start Date End Date Colton Nelson MD [address] [place] [address] PCP - General Internal Medicine 05/04/20 Home [facility] 05/17/25 documented as of this encounter
--- OUTSIDE RECORDS SUMMARY | 2025-11-12 19:51 | XMS_ITS | Encounter Summary ---
Author Organization [employer] Address [address] [facility] [address] [place] [address] Care Team Providers Care Mortgage Funder Name Role Phone Colton Nelson MD Primary Care Provide r Reason for Visit * Reason Comments Med Refill Encounter Details Date Type Department Care Team ([facility] st Contact Info) Description 10/15/2023 Refill [facility] MEDICINE [address] [place], [place] [phone] Colton Nelson MD [address] [place], [place] [phone] Social History Tobacco Use Types Packs/Day Years [...] Info) Description 11/14/2025 11:00 AM EST Telemedicine [facility] CHC MED & PEDS [address] [place] [address] Maria Isabel Elam, RN [address] [place] [address] 12/19/2025 2:30 PM EST Office Visit [facility] ADULT DENTAL [address] [place] [address] Bennett Yung, DMD [address] [place] [address] 05/01/2026 2:15 PM EDT Office Visit [facility] ADULT DENTAL [address] [place] [address] Brielle Kang [address] [place] [address] documented as of this encounter Visit Diagnoses Not on filedocumented in this encounter Additional Health Concerns Assessment Noted Time PHQ-9 Depression Total Score: 0 12/17/19 23 10:18 AM EST documented as of this encounter Care Teams Mortgage Funder Relationship Specialty Start Date End Date Colton Nelson MD [address] [place] [address] PCP - General Internal Medicine 05/04/20 Home [facility] 05/17/25 documented as of this encounter
--- OUTSIDE RECORDS SUMMARY | 2025-11-12 19:51 | XMS_ITS | Encounter Summary ---
Author Organization [employer] Address [address] [facility] [address] [place] [address] Care Team Providers Care Quarry Supervisor Dimension Stone Name Role Phone Colton Nelson MD Primary Care Provide r Reason for Visit * Reason Comments Med Refill Encounter Details Date Type Department Care Team ([facility] st Contact Info) Description 10/09/2023 Refill [facility] [address] [place], [place] [phone] Gudelia Flores FNP [address] [place], [place] [phone] Social History Tobacco Use Types Packs/Day Years [...] Info) Description 11/14/2025 11:00 AM EST Telemedicine [facility] [address] [place] [address] Maria Isabel Elam, RN [address] [place] [address] 12/19/2025 2:30 PM EST Office Visit [facility] [address] [place] [address] Bennett Yung, KAELA [address] [place] [address] 05/01/2026 2:15 PM EDT Office Visit [facility] [address] [place] [address] Xavier Kangaris [address] [place] [address] documented as of this encounter Visit Diagnoses Not on filedocumented in this encounter Additional Health Concerns Assessment Noted Time PHQ-9 Depression Total Score: 0 12/17/19 23 10:18 AM EST documented as of this encounter Care Teams Quarry Supervisor Dimension Stone Relationship Specialty Start Date End Date Colton Nelson MD [address] [place] [address] PCP - General Internal Medicine 05/04/20 [facility] 05/17/25 documented as of this encounter
--- OUTSIDE RECORDS SUMMARY | 2025-11-12 19:51 | XMS_ITS | Patient Health Record ---
Author Organization [facility] Address [address] [place] [address] Care Team Providers Care Boil Off Worker Name Role Phone Kalyani De Leon MD, [...] Status Risk Notes Problem Colon cancer screening (717773265) Colon cancer screening (Z12.11) Active confirmed Problem Long-term current use of antiplatelet drug (462056356350188 ) Long-term use of aspirin therapy (Z79.82) Active confirmed Problem Long-term current use of drug therapy (341196829) meterman (current) use of oral hypoglycemic drugs (Z79.84) Active confirmed Plan Of Treatment Future Test Test Name Order Date COLONOSCOPY 06/22/2020 Insurance Providers Payer Name Payer Address Payer Phone Subscriber Number Group Number Insured Name Patient Relationship to Insured Coverage Start Date Coverage End Date [facility] [address] [address] [place] [phone] [id number] TANIA SALMERON Self - patient is the insured Medical (General) History Medical History History ICD Code hypertension type II diabetes asthma Arthritis back pain cirrhosis elevated cholesterol restless leg syndrome COPD ALLY/CPAP Surgical History Surgery Date(Month/Year) Pinched Nerve Back of Head cholecystectomy
--- OUTSIDE RECORDS SUMMARY | 2025-11-12 19:51 | XMS_ITS ---
Author Name Rashawn LYON, Mr. Maureen Antunez Address [address] [place] [address] Phone [phone] [facility] Care Team Providers Care Sheet Metal Duct Installer Name Role Phone Alan Morocho Unavailable [phone] Reason for Referral Not Available Allergies, adverse [...] Assessment - NO pain present (1126F) [facility] [place]20[place] Pain Assessment - NO pain present (1126F) [facility] [place] Pain Assessment - NO pain present (1126F) [facility] [place] Pain Assessment - NO pain present (1126F) [facility] [place] Pain Assessment - NO pain present (1126F) [facility] Pain Assessment - NO pain present (1126F) [facility]20[place] Pain Assessment - NO pain present (1126F) [facility]2022 Type 2 diabetes w diabetic peripheral angiopath w/o gangreneType 2 diabetes mellitus with other specified complicationHyperlipidemia, unspecifiedEssential (primary) hypertensionChronic obstructive pulmonary disease, unspecifiedVitamin D deficiency, unspecifiedGastro-esophageal reflux disease without esophagitisMale erectile dysfunction, unspecifiedRestless legs syndrome Pain Assessment - NO pain present (1126F) [facility]2022 Pain Assessment - NO pain present (1126F) [facility] [place]2022 Vital Signs Date of Collection Vitals 2022-09-23 13:16:02 Height - 162.56 cmWe ight - 78.02 kgBody Mass Index (BMI) - 29.52 kg/m2BP Diastolic - 88.0 mm[Hg]BP Systolic - 168.0 mm[Hg]Heart Rate - 62.0 /min Social History Social History Social History Observation Description Effec tive Time Current Smoking Status Former smoker 2025-10-25 1 Sex Male History of Procedures Procedures [...] (do not use for phone, instead use 14580-73) [id number] 2022-09-23 No Data Available No Data Availa [...] completed by a nacho and video using [employer] Tablet. Introductory visit with [employer] to establish care. Today, patient has chief complaint of: establishing care.Reviewed Allergies, Medications, Active Medical conditions, past medical/surgical history, Social history. 2022-09-23 Most recent hospital stay(s) or ER visit(s) and precipitating factors: Denies recent ER/hospital visit 2022-09-23 Advance care planbenita blandon discussion. Conversation today with: member; Advance Care PlanDo you have an Advance Care Plan? NoDo you have a Durable Power of Earth Moving Technician for Healthcare, or Healthcare Proxy? NoIf so, Who?Code Status: UnknownOther Details of discussion (Who was present, patients description of wishes/goals):
--- OUTSIDE RECORDS SUMMARY | 2025-11-12 19:51 | XMS_ITS | Encounter Summary ---
Author Organization [employer] Address [address] [facility] [address] [place] [address] Care Team Providers Care Technician Telecommunication Systems Name Role Phone Cloton Nelson MD Primary Care Provide r Reason for Visit * Reason Onset Date Comments status of appts 06/23/2025 Encounter Details Date Type Department Care Team ([facility] st Contact Info) Description 06/23/2025 Telephone [facility] [address] [place] [address] Bennett Yung, KAELA [address] [place] [address] status of appts Social History Tobacco Use [...] he had missed a call to schedule. order desk clerk does not see authorization in file. Verifying with prep room supervisor and will reach out to patient to update DR documented in this encounter Plan of Treatment Upcoming Encounters Date Type Department Care Team (Late st Contact Info) Description 11/14/2025 11:00 AM EST Telemedicine [facility] [address] [place] [address] Maria Isabel Elam, ELEAZAR [address] [place] [address] 12/19/2025 2:30 PM EST Office Visit [facility] [address] [place] [address] Bennett Yung, KAELA [address] [place] [address] 05/01/2026 2:15 PM EDT Office Visit [facility] [address] [place] [address] Brielle Kang [address] [place] [address] documented as of this encounter Visit Diagnoses Not on filedocumented in this encounter Additional Health Concerns Assessment Noted Time PHQ-9 Depression Total Score: 9 02/05/20 25 2:00 PM EDT documented as of this encounter Care Teams Technician Telecommunication Systems Relationship Specialty Start Date End Date Colton Nelson MD [address] [place] [address] PCP - General Internal Medicine 05/04/20 [facility] 05/17/25 documented as of this encounter
--- OUTSIDE RECORDS SUMMARY | 2025-11-12 19:52 | XMS_ITS | Clinical Summary ---
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 Provider MD HEALTH MAINTENANCE Final Result from Last 3 Months or Most Recently Relevant to Health Maintenance Additional Health Concerns Active Problems Noted Date Diagnosed Date Help patients manage their type 2 diabetes 10/14 Weekly blood pressure task 10/14/2025 Help patients manage their type 2 diabetes 10/14 Patient has chronic kidney disease 10/14/2025 Weekly blood pressure task 10/14/2025 Patient has chronic kidney disease 10/14/2025 Weekly blood pressure task 10/28/2025 Weekly blood pressure task 10/28/2025 Patient has chronic kidney disease 10/28/2025 Patient has chronic kidney disease 10/28/2025 Insurance [facility] OPTIONS (O D-SNP) VERONICA GERBER [id number] DENTAL - [facility] Advance Directives Documents on File Type Date Recorded Patient Regulatory Affairs Consultant Expl anation Advance Directives and Living Will 09/19/2025 Health Care Proxy Advance Directives and Living Will 04/20/2025 2:32 PM Health Care Proxy Advance Directives and Living Will 02/06/2024 8:49 AM Health Care Proxy Care Teams Keno Terminal Operator Relationship Specialty Start Date End Date Colton Nelson MD [address] [place] [address] [place] [id number] PCP - General Internal Medicine 05/04/20 [facility] 05/17/25
--- OUTSIDE RECORDS SUMMARY | 2025-11-12 19:52 | XMS_ITS | Encounter Summary ---
Author Organization [employer] Address [address] [place] [address] [address] [place] [address] Care Team Providers Care Ball Ender Name Role Phone Colton Nelson MD Primary Care Provide r Reason for Visit * Reason Comments Med Refill Encounter Details Date Type Department Care Team (Late st Contact Info) Description 03/27/2023 Refill [facility] MEDICINE [address] [place] [address] Roxi Scott FNP Social History Tobacco Use [...] Info) Description 11/14/2025 11:00 AM EST Telemedicine [facility] CHC MED & PEDS [address] [place] [address] Maria sIabel Elam, ELEAZAR 505 [place] [address] 12/19/2025 2:30 PM EST Office Visit [facility] ADULT DENTAL [address] [place] [address] Bennett Yung, KAELA [address] [place], [place] [phone] 05/01/2026 2:15 PM EDT Office Visit [facility] ADULT DENTAL [address] [place] [address] Brielle Kang [address] [place] [address] documented as of this encounter Visit Diagnoses Not on filedocumented in this encounter Additional Health Concerns Assessment Noted Time PHQ-9 Depression Total Score: 0 12/17/19 23 10:18 AM EST documented as of this encounter Care Teams Ball Ender Relationship Specialty Start Date End Date Colton Nelson MD 230 [place] [address] PCP - General Internal Medicine 05/04/20 [facility] 05/17/25 documented as of this encounter
--- OUTSIDE RECORDS SUMMARY | 2025-11-12 19:52 | XMS_ITS | Encounter Summary ---
Author Organization [email or web address] Address [address] [facility] 7t [place] [address] Care Team Providers Care Job Checker Name Role Phone Colton Nelson MD Primary Care Provide r Reason for Visit * Reason Comments Med Refill Encounter Details Date Type Department Care Team ([facility] st Contact Info) Description 09/23/2025 Refill [facility] CHC MED & PEDS [address] [place], [place] [phone] Colton Nelson MD 230 [place], [place] [phone] Chronic obstructive pulmonary disease, unspecified COPD type [...] Description 11/14/2025 11:00 AM EST Telemedicine [facility] CHC MED & PEDS 505 [place] [address] Maria Isabel Elam, RN 505 [place] [address] 12/19/2025 2:30 PM EST Office Visit [facility] ADULT DENTAL [address] [place] [address] Bennett Yung, KAELA [address] [place] [address] 05/01/2026 2:15 PM EDT Office Visit [facility] ADULT DENTAL [address] [place] [address] Brielle Kang [address] [place] [address] documented as of this encounter Visit Diagnoses Diagnosis Chronic obstructive pulmonary disease, unspecified COPD type (CMS/HCC) (HCC) documented in this encounter Additional Health Concerns Assessment Noted Time PHQ-9 Depression Total Score: 12 09/12/ 025 2:23 PM EDT documented as of this encounter Care Teams Job Checker Relationship Specialty Start Date End Date Colton Nelson MD [address] [place] [address] PCP - General Internal Medicine 05/04/20 [facility] 05/17/25 documented as of this encounter
--- OUTSIDE RECORDS SUMMARY | 2025-11-12 19:52 | XMS_ITS | Encounter Summary ---
Author Organization [employer] Address [address] [facility] 7t [place] [address] Care Team Providers Care Public Health Outreach Worker Name Role Phone Colton Nelson MD Primary Care Provide r Reason for Visit * Reason Onset Date Comments Appointment Request 11/18/2024 Encounter Details Date Type Department Care Team ([facility] st Contact Info) Description 11/18/[address] [facility] MEDICINE [address] [place], [place] [phone] Colton Nelson MD [address] [place] [address] Appointment Request Social History Tobacco Use Types [...] pt calling requesting call back to reschedule FUR DRY CLEANER visit. Please contact pt at [phone]. (Nepalese Speaker) documented in this encounter Plan of Treatment Upcoming Encounters Date Type Department Care Team ([facility] st Contact Info) Description 11/14/2025 11:00 AM EST Telemedicine [facility] CHC MED & PEDS 505 [place] [address] Maria Isabel Elam, RN 505 [place] [address] 12/19/2025 2:30 PM EST Office Visit [facility] ADULT DENTAL [address] [place] [address] Bennett Yung, KAELA [address] [place] [address] 05/01/2026 2:15 PM EDT Office Visit [facility] ADULT DENTAL [address] [place] [address] Brielle Kang [address] [place] [address] documented as of this encounter Visit Diagnoses Not on filedocumented in this encounter Additional Health Concerns Assessment Noted Time PHQ-9 Depression Total Score: 0 05/11/20 24 1:30 PM EDT documented as of this encounter Care Teams Public Health Outreach Worker Relationship Specialty Start Date End Date Colton Nelson MD 230 [place] [address] PCP - General Internal Medicine 05/04/20 [facility] 05/17/25 documented as of this encounter
--- OUTSIDE RECORDS SUMMARY | 2025-11-12 19:52 | XMS_ITS | Encounter Summary ---
Author Organization [employer] Address [address] [facility] 7[address] [place] [address] Care Team Providers Care Tape Machine Tailer Name Role Phone Colton Nelson MD Primary Care Provide r Reason for Visit * Reason Onset Date Comments Appointment Request 12/23/2023 Encounter Details Date Type Department Care Team ([facility] st Contact Info) Description 12/23/2023 Telephone [facility] MEDICINE 230 [place], [place] [phone] Colton Nelson MD [address] [place], [place] [phone] Appointment Request Social History Tobacco Use Types [...] with pcp 12/18/23. Please contact pt at [phone]. documented in this encounter Plan of Treatment Upcoming Encounters Date Type Department Care Team (Late st Contact Info) Description 11/14/2025 11:00 AM EST Telemedicine [facility] CHC MED & PEDS 505 [place] [address] Maria Isabel Elam, RN 505 [place] [address] 12/19/2025 2:30 PM EST Office Visit [facility] ADULT DENTAL 230 [place] [address] Bennett Yung DMD 230 [place] [address] 05/01/2026 2:15 PM EDT Office Visit [facility] ADULT DENTAL 230 [place] [address] Brielle Kang 230 [place] [address] documented as of this encounter Visit Diagnoses Not on filedocumented in this encounter Additional Health Concerns Assessment Noted Time PHQ-9 Depression Total Score: 0 12/17/19 10:18 AM EST documented as of this encounter Care Teams Tape Machine Tailer Relationship Specialty Start Date End Date Colton Nelson MD [address] [place] [address] PCP - General Internal Medicine 05/04/20 [facility] 05/17/25 documented as of this encounter
--- OUTSIDE RECORDS SUMMARY | 2025-11-12 19:52 | XMS_ITS | Encounter Summary ---
Author Organization [employer] Address [address] [facility] [address] 7t [place] [address] Care Team Providers Care Workday Director Name Role Phone Colton Nelson MD Primary Care Provide r Reason for Visit * Reason Comments Med Refill Encounter Details Date Type Department Care Team ([facility] st Contact Info) Description 08/05/2025 Refill [facility] CHC MED & PEDS [address] [place], [place] [phone] Colton Nelson MD 230 [place], [place] [phone] Chronic obstructive pulmonary disease, unspecified COPD type [...] Info) Description 11/14/2025 11:00 AM EST Telemedicine [facility] CHC MED & PEDS 505 [place] [address] Maria Isabel Elam, RN 505 [place] [address] 12/19/2025 2:30 PM EST Office Visit [facility] ADULT DENTAL 230 [place] [address] Bennett Yung, KAELA [address] [place] [address] 05/01/2026 2:15 PM EDT Office Visit [facility] ADULT DENTAL [address] [place] [address] Brielle Kang [address] [place] [address] documented as of this encounter Visit Diagnoses Diagnosis Chronic obstructive pulmonary disease, unspecified COPD type (CMS/HCC) (HCC) documented in this encounter Additional Health Concerns Assessment Noted Time PHQ-9 Depression Total Score: 9 02/05/20 25 2:00 PM EDT documented as of this encounter Care Teams Workday Director Relationship Specialty Start Date End Date Colton Nelson MD 230 [place] [address] PCP - General Internal Medicine 05/04/20 [facility] 05/17/25 documented as of this encounter
--- OUTSIDE RECORDS SUMMARY | 2025-11-12 19:52 | XMS_ITS | Encounter Summary ---
Author Organization [employer] Address [address] [facility] 7[place] [address] Care Team Providers Care Psych Nurse Name Role Phone Colton Nelson MD Primary Care Provide r Reason for Visit * Reason Comments Med Refill Encounter Details Date Type Department Care Team (Late st Contact Info) Description 04/09/2023 Refill [facility] CHC MED & PEDS 505 [place] [address] Colton Nelson MD [address] [place] [phone] Social History Tobacco Use Types Packs/Day Years [...] Telemedicine [facility]EDS [address] [place] [address] Maria Isabel Elam, RN 505 [place], [place] [phone] 12/19/2025 2:30 PM EST Office Visit [facility] ADULT DENTAL 230 [place] [address] Bennett Yung DMD 230 [place] [address] 05/01/2026 2:15 PM EDT Office Visit [facility] ADULT DENTAL 230 [place] [address] Brielle Kang 230 [place] [address] documented as of this encounter Visit Diagnoses Not on filedocumented in this encounter Additional Health Concerns Assessment Noted Time PHQ-9 Depression Total Score: 0 12/17/19 23 10:18 AM EST documented as of this encounter Care Teams Psych Nurse Relationship Specialty Start Date End Date Colton Nelson MD 230 [place] [address] PCP - General Internal Medicine 05/04/20 [facility] 05/17/25 documented as of this encounter
--- OUTSIDE RECORDS SUMMARY | 2025-11-12 19:52 | XMS_ITS | Encounter Summary ---
Author Organization [employer] Address [address] [facility] 7t [place] [address] Care Team Providers Care Supervisor Residential Name Role Phone Colton Nelson MD Primary Care Provide r Reason for Visit * Reason Onset Date Comments Call Back Request 05/13/2024 Encounter Details Date Type Department Care Team ([facility] st Contact Info) Description 05/13/2024 Telephone [facility] MEDICINE [address] [place], [place] [phone] Colton Nelson MD 230 [place], [place] [phone] Call Back Request Social History Tobacco Use [...] from pt requesting a call back with educational sign language interpreter, stated think he needs an appt but not sure about it. documented in this encounter Plan of Treatment Upcoming Encounters Date Type Department Care Team (Late st Contact Info) Description 11/14/2025 11:00 AM EST Telemedicine [facility] CHC MED & PEDS 505 [place] [address] Maria Isabel Elam, RN 505 [place] [address] 12/19/2025 2:30 PM EST Office Visit [facility] ADULT DENTAL [address] [place] [address] Bennett Yung, KAELA 230 [place] [address] 05/01/2026 2:15 PM EDT Office Visit [facility] ADULT DENTAL [address] [place] [address] Brielle Kang [address] [place] [address] documented as of this encounter Visit Diagnoses Not on filedocumented in this encounter Additional Health Concerns Assessment Noted Time PHQ-9 Depression Total Score: 0 05/11/20 24 1:30 PM EDT documented as of this encounter Care Teams Supervisor Residential Relationship Specialty Start Date End Date Colton Nelson MD [address] [place] [address] PCP - General Internal Medicine 05/04/20 [facility] 05/17/25 documented as of this encounter
--- OUTSIDE RECORDS SUMMARY | 2025-11-12 19:52 | XMS_ITS | Encounter Summary ---
Author Organization [employer] Address [address] [facility] 7t [place] [address] Care Team Providers Care Flue Blower Name Role Phone Colton Nelson MD Primary Care Provide r Encounter Details Date Type Department Care Team ([facility] Contact Info) Description 04/03/[address] [facility] MEDICINE 230 [place] [address] Colton Nelson MD 230 [place] [address] Social History Tobacco Use Types Packs/Day Years [...] Upcoming Encounters Date Type Department Care Team ([facility] Contact Info) Description 11/14/2025 11:00 AM EST Telemedicine [facility] CHC MED & PEDS 505 [place], [place] [phone] Maria Isabel Elam, RN 505 [place] [address] 12/19/2025 2:30 PM EST Office Visit [facility] ADULT DENTAL 230 [place] [address] Bennett Yung DMD [address] [place] [address] 05/01/2026 2:15 PM EDT Office Visit [facility] ADULT DENTAL [address] [place] [address] Brielle Kang [address] [place] [address] documented as of this encounter Procedures Procedure [...] documented as of this encounter Care Teams Flue Blower Relationship Specialty Start Date End Date Colton Nelson MD [address] [place] [address] PCP - General Internal Medicine 05/04/20 [facility] 05/17/25 documented as of this encounter
--- OUTSIDE RECORDS SUMMARY | 2025-11-12 19:52 | XMS_ITS | Encounter Summary ---
Author Organization [employer] Address [address] [facility] 7t [place] [address] Care Team Providers Care Finish Saw Operator Name Role Phone Colton Nelson MD Primary Care Provide r Reason for Visit * Reason Comments Med Refill Encounter Details Date Type Department Care Team (Late st Contact Info) Description 04/17/2023 Refill [facility] CHC MED & PEDS 505 [place] [address] Colton Nelson MD [address] [place] [address] Social History Tobacco Use Types Packs/Day Years [...] CHC MED & PEDS [address] [place] [address] Maria Isabel Elam, RN 505 [place], [place] [phone] 12/19/2025 2:30 PM EST Office Visit [facility] ADULT DENTAL 230 [place] [address] Bennett Yung DMD [address] [place] [address] 05/01/2026 2:15 PM EDT Office Visit [facility] ADULT DENTAL [address] [place] [address] Brielle Kang [address] [place] [address] documented as of this encounter Visit Diagnoses Not on filedocumented in this encounter Additional Health Concerns Assessment Noted Time PHQ-9 Depression Total Score: 0 12/17/19 23 10:18 AM EST documented as of this encounter Care Teams Finish Saw Operator Relationship Specialty Start Date End Date Colton Nelson MD 230 [place] [address] PCP - General Internal Medicine 05/04/20 [facility] 05/17/25 documented as of this encounter
--- OUTSIDE RECORDS SUMMARY | 2025-11-12 19:52 | XMS_ITS | Encounter Summary ---
Author Organization [employer] Address [address] [place] [address] [place] [address] Care Team Providers Care Accounts Payable Manager Name Role Phone Colton Nelson MD Primary Care Provide r Reason for Visit * Reason Comments Med Refill Encounter Details Date Type Department Care Team ([facility] st Contact Info) Description 11/10/2025 Refill [facility] MEDICINE [address] [place] [address] Constance Muñoz MD 230 [place] [address] Social History Tobacco Use Types Packs/Day Years [...] Info) Description 11/14/2025 11:00 AM EST Telemedicine [facility] CHC MED & PEDS 505 [place] [address] Maria Isabel Elam, RN 505 [place] [address] 12/19/2025 2:30 PM EST Office Visit [facility] ADULT DENTAL [address] [place] [address] Bennett Yung DMD [address] [place] [address] 05/01/2026 2:15 PM EDT Office Visit [facility] ADULT DENTAL [address] [place] [address] Brielle Kang [address] [place] [address] documented as of this encounter Goals Goal Patient Goal Type Associated Problems Recent Progress Patient-Stated? Author Help patients manage their type 2 diabetes Care Plan Help patients manage their type 2 diabetes No Bennett YungKAELA Weekly blood pressure task Care Plan Weekly blood pressure task No Bennett Yung DMD Help patients manage their type 2 diabetes Care Plan Help patients manage their type 2 diabetes No Bennett Yung DMD Patient has chronic kidney disease Care Plan Patient has chronic kidney disease No Bennett Yung DMD Weekly blood pressure task Care Plan Weekly blood pressure task No Bennett Yung DMD Patient has chronic kidney disease Care Plan Patient has chronic kidney disease No Bennett Yung DMD Weekly blood pressure task Care Plan Weekly blood pressure task No Pearl Brielle Weekly blood pressure task Care Plan Weekly blood pressure task No Pearl, Brielle Patient has chronic kidney disease Care Plan Patient has chronic kidney disease No Pearl, Brielle Patient has chronic kidney disease Care Plan Patient has chronic kidney disease No Pearl Brielle documented as of this encounter Visit Diagnoses Not on filedocumented in this encounter Additional Health Concerns Active Problems Noted Date [...] 10/28/2025 Patient has chronic kidney disease 10/28/2025 Assessment Noted Time PHQ-9 Depression Total Score: 12 025 2:23 PM EDT documented as of this encounter Care Teams Accounts Payable Manager Relationship Specialty Start Date End Date Colton Nelson MD [address] [place] [address] PCP - General Internal Medicine 05/04/20 [facility] 05/17/25 documented as of this encounter
--- OUTSIDE RECORDS SUMMARY | 2025-11-12 19:52 | XMS_ITS | Encounter Summary ---
Author Organization [employer] Address [address] [facility] 7t [place] [address] Care Team Providers Care Termite Control Representative Name Role Phone Colton Nelson MD Primary Care Provide r Reason for Visit * Reason Comments Med Refill Encounter Details Date Type Department Care Team ([facility] st Contact Info) Description 04/21/2024 Refill [facility] MEDICINE 230 [place], [place] [phone] Constance Wiggins MD 230 [place], [place] [phone] Chronic obstructive pulmonary disease, unspecified COPD type [...] Description 11/14/2025 11:00 AM EST Telemedicine [facility] CHC MED & PEDS 505 [place] [address] Maria Isabel Elam, RN 505 [place] [address] 12/19/2025 2:30 PM EST Office Visit [facility] ADULT DENTAL [address] [place] [address] Bennett Yung, KAELA [address] [place] [address] 05/01/2026 2:15 PM EDT Office Visit [facility] ADULT DENTAL [address] [place] [address] Pearl, Brielle [address] [place] [address] documented as of this encounter Visit Diagnoses Diagnosis Chronic obstructive pulmonary disease, unspecified COPD type (CMS/HCC) (HCC) documented in this encounter Additional Health Concerns Assessment Noted Time PHQ-9 Depression Total Score: 0 12/17/19 23 10:18 AM EST documented as of this encounter Care Teams Termite Control Representative Relationship Specialty Start Date End Date Colton Nelson MD 230 [place] [address] PCP - General Internal Medicine 05/04/20 [facility] 05/17/25 documented as of this encounter
--- OUTSIDE RECORDS SUMMARY | 2025-11-12 19:52 | XMS_ITS | Encounter Summary ---
Author Organization [employer] Address [address] [facility] 7t [place] [address] Care Team Providers Care Composite Boat Builder Name Role Phone Colton Nelson MD Primary Care Provide r Reason for Visit * Reason Comments Med Refill Encounter Details Date Type Department Care Team ([facility] st Contact Info) Description 06/18/2024 Refill [facility] MEDICINE 230 [place], [place] [phone] Colton Nelson MD 230 [place], [place] [phone] Chronic obstructive pulmonary disease, unspecified COPD type [...] Info) Description 11/14/2025 11:00 AM EST Telemedicine [facility] MED & PEDS 505 [place] [address] Maria Isabel Elam, RN 505 [place] [address] 12/19/2025 2:30 PM EST Office Visit [facility] ADULT DENTAL 230 [place] [address] Bennett Yung, KAELA 230 [place] [address] 05/01/2026 2:15 PM EDT Office Visit [facility] ADULT DENTAL 230 [place] [address] Brielle Kang 230 [place] [address] documented as of this encounter Visit Diagnoses Diagnosis Chronic obstructive pulmonary disease, unspecified COPD type (CMS/HCC) (HCC) documented in this encounter Additional Health Concerns Assessment Noted Time PHQ-9 Depression Total Score: 0 05/11/20 24 1:30 PM EDT documented as of this encounter Care Teams Composite Boat Builder Relationship Specialty Start Date End Date Colton Nelson MD [address] [place] [address] PCP - General Internal Medicine 05/04/20 [facility] 05/17/25 documented as of this encounter
--- OUTSIDE RECORDS SUMMARY | 2025-11-12 19:52 | XMS_ITS | Encounter Summary ---
Author Organization [employer] Address 75 [facility] 7t [place] [address] Care Team Providers Care Street Openings Inspector Name Role Phone Colton Nelson MD Primary Care Provide r Reason for Visit * Reason Onset Date Comments Reschedule 02/18/2024 Encounter Details Date Type Department Care Team ([facility] st Contact Info) Description 02/18/2024 Telephone [facility] MEDICINE [address] [place], [place] [phone] Colton Nelson MD 230 [place], [place] [phone] Reschedule Social History Tobacco Use Types Packs/Day [...] Tc from pt requesting to reschedule 02/17 SPECIALIST PHYSICIAN appointment. Please contact pt at [phone] documented in this encounter Plan of Treatment Upcoming Encounters Date Type Department Care Team (Late st Contact Info) Description 11/14/2025 11:00 AM EST Telemedicine [facility] CHC MED & PEDS [address] [place] [address] Maria Isabel Elam, RN 505 [place] [address] 12/19/2025 2:30 PM EST Office Visit [facility] ADULT DENTAL [address] [place] [address] Bennett Yung DMD [address] [place] [address] 05/01/2026 2:15 PM EDT Office Visit [facility] ADULT DENTAL [address] [place] [address] Brielle Kang [address] [place] [address] documented as of this encounter Visit Diagnoses Not on filedocumented in this encounter Additional Health Concerns Assessment Noted Time PHQ-9 Depression Total Score: 0 12/17/19 23 10:18 AM EST documented as of this encounter Care Teams Street Openings Inspector Relationship Specialty Start Date End Date Colton Nelson MD [address] [place] [phone] PCP - General Internal Medicine 05/04/20 [facility] 05/17/25 documented as of this encounter
--- OUTSIDE RECORDS SUMMARY | 2025-11-12 19:52 | XMS_ITS | Encounter Summary ---
Author Organization [employer] Address 75 [facility] 7t [place] [address] Care Team Providers Care Video Control Operator Name Role Phone Colton Nelson MD Primary Care Provide r Reason for Visit * Reason Comments Med Refill Encounter Details Date Type Department Care Team ([facility] st Contact Info) Description 04/16/2024 Refill [facility] MEDICINE 230 [place], [place] [phone] Constance Wiggins MD 230 [place], [place] [phone] Chronic obstructive pulmonary disease, unspecified COPD type [...] 11/14/2025 11:00 AM EST Telemedicine [facility] CHC MED & PEDS 505 [place] [address] Maria Isabel Elam, RN 505 [place] [address] 12/19/2025 2:30 PM EST Office Visit [facility] ADULT DENTAL 230 [place] [address] Bennett Yung, KAELA 230 [place] [address] 05/01/2026 2:15 PM EDT Office Visit [facility] ADULT DENTAL 230 [place] [address] Pearl, Brielle 230 [place] [address] documented as of this encounter Visit Diagnoses Diagnosis Chronic obstructive pulmonary disease, unspecified COPD type (CMS/HCC) (HCC) documented in this encounter Additional Health Concerns Assessment Noted Time PHQ-9 Depression Total Score: 0 12/17/19 23 10:18 AM EST documented as of this encounter Care Teams Video Control Operator Relationship Specialty Start Date End Date Colton Nelson MD 230 [place] [address] PCP - General Internal Medicine 05/04/20 [facility] 05/17/25 documented as of this encounter
--- OUTSIDE RECORDS SUMMARY | 2025-11-12 19:52 | XMS_ITS | Encounter Summary ---
Author Organization [employer] Address 75 [facility] 7t [place] [address] Care Team Providers Care Inspector Process Name Role Phone Colton Nelson MD Primary Care Provide r Reason for Visit * Reason Comments Med Refill Encounter Details Date Type Department Care Team ([facility] st Contact Info) Description 05/17/2024 Refill [facility] MEDICINE [address] [place], [place] [phone] Ashley Carrion, ANP 230 [place] [address] Lumbar disc herniation Social History Tobacco Use [...] 11/14/2025 11:00 AM EST Telemedicine [facility] CHC MED & PEDS 505 [place] [address] Maria Isabel Elam, RN 505 [place] [address] 12/19/2025 2:30 PM EST Office Visit [facility] ADULT DENTAL 230 [place] [address] Bennett Yung, DMD [address] [place] [address] 05/01/2026 2:15 PM EDT Office Visit [facility] ADULT DENTAL [address] [place] [address] Brielle Kang [address] [place] [address] documented as of this encounter Visit Diagnoses Diagnosis Lumbar disc herniation Displacement of lumbar intervertebral disc without myelopathy documented in this encounter Additional Health Concerns Assessment Noted Time PHQ-9 Depression Total Score: 0 05/11/20 24 1:30 PM EDT documented as of this encounter Care Teams Inspector Process Relationship Specialty Start Date End Date Colton Nelson MD [address] [place] [phone] PCP - General Internal Medicine 05/04/20 [facility] 05/17/25 documented as of this encounter
--- OUTSIDE RECORDS SUMMARY | 2025-11-12 19:52 | XMS_ITS | Encounter Summary ---
Author Organization [employer] Address [address] [facility] [address] 7t [place] [address] Care Team Providers Care Special Agent Group Insurance Name Role Phone Colton Nelson MD Primary Care Provide r Encounter Details Date Type Department Care Team (Late st Contact Info) Description 11/12/2025 Orders Only [facility] External Provider, [facility] Social History Tobacco Use Types Packs/Day Years [...] Upcoming Encounters Date Type Department Care Team ([facility] st Contact Info) Description 11/14/2025 11:00 AM EST Telemedicine [facility] CHC MED & PEDS 505 [place] [address] Maria Isabel Elam, ELEAZAR 505 [place] [address] 12/19/2025 2:30 PM EST Office Visit [facility] ADULT DENTAL 230 [place] [address] Bennett Yung DMD 230 [place] [address] 05/01/2026 2:15 PM EDT Office Visit [facility] ADULT DENTAL [address] [place] [address] Brielle Kang [address] [place] [address] documented as of this encounter Goals Goal [...] Care Plan Patient has chronic kidney disease Bennett Agudelo DMD Weekly blood pressure task Care Plan Weekly blood pressure task No Chidirocio KAELA Guajardo Patient has chronic kidney disease Care Plan Patient has chronic kidney disease No Aga Bennett KAELA Weekly blood pressure task Care Plan Weekly blood pressure task No Brielle Kang Weekly blood pressure task Care Plan Weekly blood pressure task No Brielle Kang Patient has chronic kidney disease Care Plan Patient has chronic kidney disease No Brielle Kang Patient has chronic kidney disease Care Plan Patient has chronic kidney disease No Brielle Kang documented as of this encounter Procedures Procedure Name Priority Date/Time Associated Diagnosis Comments XR CHEST 2 VIEWS Routine 11/12/2025 5:48 PM EST HIGH SENSITIVITY TROPONIN I Routine 11/12/2025 5:44 PM EST CBC WITH AUTO DIFFERENTIAL Routine 11/12/2025 5:44 PM EST HEPATIC FUNCTION PANEL Routine 11/12/2025 5:44 PM EST BASIC METABOLIC PANEL Routine 11/12/2025 5:44 PM EST documented in this encounter Results * XR Chest 2 Views (11/12/2025 5:48 PM EST) Anatomical Region Laterality Modality Chest Radiographic Reema ging 11/12/2025 5:48 PM EST Narrative 11/12/2025 5:49 PM EST [place] [id number] XRay Report Signed Patient: Jose Ramon Feliciano MR#: [id number] : 1945 Acct:[id number] Age/Sex: 80 / M ADM Date: 11/12/25 Loc: HO.ED Attending Dr: Ordering Physician: Mariama Davidson NP Date of Service: 11/12/25 Procedure(s): XR chest 2V Accession Number(s): [id number] cc: Colton Edward MD; Mariama Davidson NP Reason for Exam: chest apain CLINICAL HISTORY: chest apain 2 view chest x-ray Comparison: CR/NM/SR - XR CHEST 2 VIEWS - 02/19/24 13:19 EDT Findings: No consolidation or effusion. Heart size is normal. No acute fracture. IMPRESSION: 1. No acute findings. This document has been electronically signed by: Scottie Valadez MD on 11/12/2025 17:48:07 Dictated By: Scottie Valadez MD Signed By: <Electronically signed by Scottie Valadez MD in OV> 11/12/251747 DD/ 47 TD/TT: 11/12/251747 Business Support Specialist: Procedure Note Donotuseinterpreter, Image - 11/12/2025 [place] [id number] XRay Report Signed Patient: Jose Ramon FelicianoMR#: [id number] : 7Acct:[id number] Age/Sex: 80 / MADM Date: 11/12/25 Loc: HO.ED Attending Dr: Ordering Physician: Mariama Davidson NP Date of Service: 11/12/25 Procedure(s): XR chest 2V Accession Number(s): [id number] cc: Colton Edward MD; Mariama Davidson NP Reason for Exam: chest apain CLINICAL HISTORY: chest apain 2 view chest x-ray Comparison: CR/NM/SR - XR CHEST 2 VIEWS - 02/19/24 13:19 EDT Findings: No consolidation or effusion. Heart size is normal. No acute fracture. IMPRESSION: 1. No acute findings. This document has been electronically signed by: Scottie Valadez MD on 11/12/2025 17:48:07 Dictated By: Scottie Valadez MD Signed By: <Electronically signed by Scottie Valadez MD in OV> 11/12/251747 DD/ 47 TD/TT: 11/12/251747 Business Support Specialist: [facility] External Provider IMG XR PROCEDURES Final Result * High Sensitivity Troponin I (11/12/2025 5:44 PM EST) TROPONIN I HIGH SENSITIVITY 4.2 <3.5 - 35.0 ng/L [facility] Comment:The Morgan high sens itivity Troponin-I results should beused in conjunction with other diagnostic information suchas ECG, clinical observations and information, and patientsymptoms to aid in the diagnosis of PA. 11/12/2025 5:44 PM EST 11/12/2025 5:47 PM EST us Generic External Data Provider LAB BLOOD ORDERAB LES Final Result [facility] [address] [place] [address] [phone] * (ABNORMAL) Basic Metabolic Panel (11/12/2025 5:44 PM EST) Pathologist [facility] Sodium 142 135 - 145 mmol/L [facility] Potassium 3.9 3.3 - 5.1 mmol/L [facility] Chloride 105 96 - 108 mmol/L [facility] Carbon Dioxide 27 22 - 29 mmol/L [facility] Anion Gap 14 12 - 20 [facility] Urea Nitrogen (BUN) 19(H) 9 - 16 mg/dL [facility] Creatinine, Serum 0.91 0.5 - 1.4 mg/dL [facility] Creatinine Clr Calc Pharmacy 64.3 [facility] Comment:eGFR (calculated fro m the MDRD study equation) and eCrCl(calculated from the Cockcroft-Gault equation) are based ondifferent parameters and may not yield comparable results.If eCrCl result is absurd, please check patient'sheight/weight. Estimated Glomerular Filt Rate >60 [facility] Comment:Chronic Kidney Disea se: Estimated GFR < 60 mL/min/1.91n1Xjtxob Kidney Disease: Estimated GFR < 15 mL/min/1.73m2 Glucose 137(H) 60 - 115 mg/dL [facility] Calcium 9.9 8.4 - 10.2 mg/dL [facility] 11/12/2025 5:44 PM EST 11/12/2025 5:47 PM EST Generic External Data Provider LAB BLOOD ORDERAB LES Final Result Performing Organization Address [facility] de Phone Number [facility] [address] [place] [phone] * Hepatic Function Panel (11/12/2025 5:44 PM EST) Pathologist [facility] Bilirubin, Total 0.4 0.0 - 1.0 mg/dL [facility] Bilirubin, Direct 0.2 0.0 - 0.5 mg/dL [facility] Aspartate Amino Transferase 26 5 - 37 U/L [facility] Alanine Aminotransferase 23 0 - 40 U/L [facility] Total Protein 7.7 6.5 - 8.0 g/dL [facility] Albumin Level 4.6 3.5 - 5.0 g/dL [facility] Alkaline Phosphatase 79 39 - 117 U/L [facility] 11/12/2025 5:44 PM EST 11/12/2025 5:47 PM EST Generic External Data Provider LAB BLOOD ORDERAB LES Final Result Performing Organization Address [facility] Phone Number [facility] [address] [place] [phone] * (ABNORMAL) CBC auto differential (11/12/2025 5:44 PM EST) White Blood Count 10.0 4.8 - 10.8 X10*3/uL [facility] Red Blood Count 4.47(L) 4.60 - 5.80 X10*6/uL [facility] Hemoglobin 13.7(L) 14.0 - 18.0 g/dl [facility] Hematocrit 40.7(L) 42.0 - 52.0 % [facility] Mean Corpuscular Volume 91.1 80.0 - 98.0 fL [facility] Mean Corpuscular Hemoglobin 30.6 27.0 - 33.0 pg [facility] Mean Corpuscular HGB Conc 33.7 31.0 - 36.0 g/dl [facility] Red Cell Distribution Width 12.5 11.0 - 16.0 % [facility] Platelet Count 251 160 - 400 X10*3/uL [facility] Mean Platelet Volume 9.8 9.4 - 12.4 fL [facility] Neutrophils Percent Auto 74.6(H) 45 - 73 % [facility] Imm Gran Pct Auto 0.3 0.0 - 0.4 % [facility] Lymphocytes Percent Auto 16.3(L) 20 - 40 % [facility] Monocytes Percent Auto 6.6 2 - 11 % [facility] Eosinophils Percent Auto 1.4 0 - 4 % [facility] Basophils Percent Auto 0.8 0 - 2 % [facility] NRBC Pct Auto 0.0 0.0 - 0.2 /100WBC [facility] Neutrophils Absolute Auto 7.4 2.0 - 8.3 x10*3/uL [facility] Imm Gran Abs Auto 0.03 0.00 - 0.03 X10*3/uL [facility] Lymphocytes Absolute Auto 1.6 1.2 - 4.9 X10*3/uL [facility] Monocytes Absolute Auto 0.7 0.1 - 1.2 X10*3/uL [facility] Eosinophils Absolute Auto 0.1 0.0 - 0.4 X10*3/uL [facility] Basophils Absolute Auto 0.1 0.0 - 0.2 X10*3/uL [facility] NRBC Abs Auto 0.000 0.0 - 0.012 X10*3/uL [facility] 11/12/2025 5:44 PM EST 11/12/2025 5:47 PM EST us Generic External Data Provider LAB BLOOD ORDERAB LES Final Result [facility] [address] [place] [phone] documented in this encounter Visit Diagnoses [...] documented as of this encounter Care Teams Special Agent Group Insurance Relationship Specialty Start Date End Date Colton Nelson MD [address] [place] [address] PCP - General Internal Medicine 05/04/20 [facility] 05/17/25 documented as of this encounter
--- OUTSIDE RECORDS SUMMARY | 2025-11-12 19:52 | XMS_ITS | Encounter Summary ---
Author Organization [employer] Address 75 [facility] 7[place] [address] Care Team Providers Care Stripper Opaquer Name Role Phone Colton Nelson MD Primary Care Provide r Encounter Details Date Type Department Care Team (Latest Contact Info) Description 12/13/2020 Abstract [facility] CONVERSIONS Dental, Provider, DDS Social [...] Info) Description 11/14/2025 11:00 AM EST Telemedicine [facility] CHC MED & PEDS [address] [place] [address] Maria Isabel Elam, RN 505 [place] [address] 12/19/2025 2:30 PM EST Office Visit [facility] ADULT DENTAL [address] [place] [address] Bennett Yung, KAELA [address] [place] [address] 05/01/2026 2:15 PM EDT Office Visit [facility] ADULT DENTAL [address] [place] [address] Brielle Kang [address] [place] [address] documented as of this encounter Visit Diagnoses Not on filedocumented in this encounter Care Teams Stripper Opaquer Relationship Specialty Start Date End Date Colton Nelson MD [address] [place] [phone] PCP - General Internal Medicine 05/04/20 [facility] 05/17/25 documented as of this encounter
--- OUTSIDE RECORDS SUMMARY | 2025-11-12 19:52 | XMS_ITS | Encounter Summary ---
Author Organization [employer] Address 75 [facility] 7 [place] [address] Care Team Providers Care Washhouse Worker Name Role Phone Colton Nelson MD Primary Care Provide r Encounter Details Date Type Department Care Team (Latest Contact Info) Description 08/09/2019 Abstract [facility] CONVERSIONS Dental, Provider, DDS Social History [facility] [address] [place] [address] Maria Isabel Elam, RN 505 [place] [address] 12/19/2025 2:30 PM EST Office Visit [facility] ADULT DENTAL [address] [place] [address] Bennett Yung, KAELA [address] [place] [address] 05/01/2026 2:15 PM EDT Office Visit [facility] ADULT DENTAL [address] [place] [address] Brielle Kang [address] [place] [address] documented as of this encounter Visit Diagnoses Not on filedocumented in this encounter Care Teams Washhouse Worker Relationship Specialty Start Date End Date Colton Nelson MD [address] [place] [address] PCP - General Internal Medicine 05/04/20 [facility] 05/17/25 documented as of this encounter
--- OUTSIDE RECORDS SUMMARY | 2025-11-12 19:52 | XMS_ITS | Encounter Summary ---
Author Organization [employer] Address 75 [facility] 7 [place] [address] Care Team Providers Care Electrical Designer Drafter Name Role Phone Colton Nelson MD Primary Care Provide r Encounter Details Date Type Department Care Team (Latest Contact Info) Description 12/06/2021 Abstract [facility] CONVERSIONS Dental, Provider, DDS Social History Tobacco [...] 11/14/2025 11:00 AM EST Telemedicine [facility] CHC MED & PEDS [address] [place] [address] Maria Isabel Elam, RN 505 [place] [address] 12/19/2025 2:30 PM EST Office Visit [facility] ADULT DENTAL [address] [place] [address] Bennett Yung, KAELA [address] [place] [address] 05/01/2026 2:15 PM EDT Office Visit [facility] ADULT DENTAL [address] [place] [address] Brielle Kang [address] [place] [address] documented as of this encounter Visit Diagnoses Not on filedocumented in this encounter Care Teams Electrical Designer Drafter Relationship Specialty Start Date End Date Colton Nelson MD [address] [place] [address] PCP - General Internal Medicine 05/04/20 [facility] 05/17/25 documented as of this encounter
[2025-11-12 20:49] LABS: Troponin-I High Sensitivity 6.0 ng/L (<3.5-35.0)
[2025-11-12 22:00] VITALS: BP 144/78; PULSE 80; RESP 18; O2SAT 96
[2025-11-12] MEDS: Lidocaine 4 % Patch ADH..PATCH 1 PATCH TRANSDERMA (22:33)
[2025-11-12 22:34] VITALS: BP 144/78; PULSE 80; RESP 18; TEMP 36.9; O2SAT 96
== END 2025-11-12 22:36 | disposition home or self-care (01) ==
PROVIDERS: Nurse Practitioner Family; Emergency Provider Student in an Organized Health Care Education/Training Program; PCP Internal Medicine
DX: R07.89 Other chest pain (principal)
CPT/HCPCS: 36415; 71046; 80048; 80076; 84484; 85025; 93005; 99283; 99284

== ENCOUNTER → 2025-11-12 17:24 | Outpatient (BNV) | payer OTHER, SELFPAY | PROVIDERS: Emergency Provider Student in an Organized Health Care Education/Training Program; PCP Internal Medicine; Visit Provider Internal Medicine Cardiovascular Disease | DX: R07.9 Chest pain, unspecified (principal) | CPT/HCPCS: 93010 ==

== ENCOUNTER → 2025-11-12 17:25 | Outpatient (BNV) | payer OTHER, SELFPAY | PROVIDERS: PCP Internal Medicine; Visit Provider Radiology Diagnostic Radiology | DX: R07.9 Chest pain, unspecified (principal) | CPT/HCPCS: 71046 ==